=== PATIENT | female | born 1935 | race Caucasian/White ===

== ENCOUNTER 2018-01-13 12:00 | Inpatient (IN) | payer OTHER ==
[~2018-01-13] VITALS: Ht 162.6 cm; Wt 63.2 kg
[2018-01-13] VITALS (9 sets, daily range): BP systolic 148–210; BP diastolic 61–82; PULSE 65; TEMP 36.3–37.5; O2SAT 94–96; Ht 162.6 cm; Wt 63.2 kg
[~2018-01-13 12:00] MED LIST: SODIUM CHLORIDE 0.9% 1000ML 1,000 ML IV SCH
--- NOTE | 2018-01-13 12:12 | DIAGNOSTIC IMAGING REPORT ---
CT HEAD WITHOUT CONTRAST (CT) CLINICAL HISTORY: STROKE COMPARISON STUDY: No previous studies for comparison. TECHNIQUE: Axial CT of the brain is performed from the vertex to the skull base. IV contrast was not administered for this examination. A dose lowering technique was utilized adhering to the principles of ALARA. CT DOSE: 638.56 mGycm FINDINGS: No intra or extra-axial mass lesions are visualized. There is no CT evidence of acute cortical infarction. There is no evidence of midline shift. There is no acute hemorrhage. No calvarial fractures are visualized. There are patchy white matter hypodensities likely on a small vessel basis. There is no evidence of pathologic ventricular dilatation. There is trace fluid within the right maxillary sinus. Note is made of vertebral and basilar artery calcifications. IMPRESSION: No acute intracranial findings Electronically signed by: Messi Doll M.D. 01/13/2018 12:10 PM Dictated Date/Time: 01/13/2018 12:08 PM
[2018-01-13 12:32] LABS: BASO % 0.8 %; BASO ABS # 0.05 K/uL (0-0.2); EOS % 4.1 %; EOS ABS # 0.27 K/uL (0-0.5); HEMATOCRIT 38.2 % (37-47); LYMPH % 34.5 %; LYMPH ABS # 2.25 K/uL (1.2-3.4); MEAN CELL VOLUME 91.2 fL (80-100); MEAN PLATELET VOLUME 10.6 fL (7.4-10.4); MONO % 11.2 %; MONO ABS # 0.73 K/uL (0.11-0.59); NEUT % 49.4 %; NEUT ABS # 3.22 K/uL (1.4-6.5); PLATELET COUNT 209 K/uL (130-400); RED CELL DISTRIBUTION WIDTH CV 14.2 % (11.5-14.5); RED CELL DISTRIBUTION WIDTH SD 47.2 fL (36.4-46.3); WHITE BLOOD COUNT 6.52 K/uL (4.8-10.8)
[2018-01-13 12:34] LABS: ISTAT CREATININE 0.7 mg/dl (0.6-1.3); ISTAT IONIZED CALCIUM 1.22 mmol/l (1.12-1.32); ISTAT POTASSIUM 3.9 mEq/L (3.3-5.0)
--- NOTE | 2018-01-13 12:39 | DIAGNOSTIC IMAGING REPORT ---
CHEST ONE VIEW PORTABLE CLINICAL HISTORY: STROKE dyspnea COMPARISON STUDY: No previous studies for comparison. FINDINGS: Mild cardiomegaly. Prior median sternotomy. Permanent bipolar cardiac pacemaker. Lungs are considered clear. Diaphragms are smooth. IMPRESSION: No acute process. Postoperative changes as noted. The above report was generated using voice recognition software. It may contain grammatical, syntax or spelling errors. Electronically signed by: Gerardo Wright M.D. 01/13/2018 12:37 PM Dictated Date/Time: 01/13/2018 12:37 PM
[2018-01-13 12:46] LABS: CALCIUM 9.7 mg/dl (8.5-10.1); CREATININE 0.75 mg/dl (0.60-1.20); POTASSIUM 3.7 mmol/L (3.5-5.1)
[2018-01-13 12:55] LABS: CKMB 1.9 ng/ml (0.5-3.6)
[2018-01-13] MEDS ORDERED: ONDANSETRON INJ 2 MG/ML 2 ML VIAL IV STA (13:06)
[2018-01-13] MEDS ORDERED: ASPIRIN 324 MG CHEW PO STA (13:06)
[2018-01-13] MEDS ORDERED: MoRPHine SULFATE 2 MG/ML CARP IV STA (13:06)
[2018-01-13] MEDS ORDERED: ASPI1CHW12 PO (13:10)
[2018-01-13] MEDS ORDERED: NVLG SQ ×2 (13:10→13:14)
[2018-01-13] MEDS ORDERED: METO100T44 PO (13:10)
[2018-01-13] MEDS ORDERED: DEXTROSE 50% 50 ML SYR IV PRN (14:00)
[2018-01-13] MEDS ORDERED: POLYETHYLENE (MIRALAX) 17 GM PACK PO PRN (14:00)
[2018-01-13] MEDS ORDERED: GLUCAGON FOR INJ 1 MG VIAL SQ PRN (14:00)
[2018-01-13] MEDS ORDERED: GLUCOSE 10 TABS/TUBE PO PRN (14:00)
[2018-01-13] MEDS ORDERED: GLUCOSE 40% GEL 15 GM TUBE PO PRN (14:00)
[2018-01-13] MEDS ORDERED: PHARMACY GLYCEMIC MGMT CONSULT PRN (14:40)
--- NOTE | 2018-01-13 14:50 | History and Physical ---
History & Physical Date & Time of Service: Jan 13, 2018 at 14:01 Chief Complaint: Cva Symptoms Primary Care Physician: Kraig Cornejo M.D. History of Present Illness Attending: Dr. Hamilton This is an 82-year-old female that presented with some left-sided weakness. She reports that this started this morning about 1030. She had no falls or injury but states she has some numbness and tingling of the left hand was then developed into some left-sided weakness. She reports some numbness of the right hand but not the same feeling as her left. She had no slurred speech. She has no unusual or acute memory loss. She denies any difficulty with eating or swallowing. She denies any history of aspiration. The patient does have a significant history of cardiac disease with multiple CABGs as well as multiple PCI's. She follows a [facility] in [place] and had her most recent stent last year. She reports that her legal counsel said at that time that she is not a candidate for further intervention and that she will need to be treated medically. The patient had a CT scan of the head done today which was negative for acute findings. A tele-stroke consult was placed with [facility]. The patient was evaluated by Dr. Cordero who declared that he did not think that there was a CVA. The patient has shown consistent improvement in her symptoms since admission to the emergency department. At this point she does still complain of some left-sided hand weakness and states that her left arm just feels different. She does have a history of left carotid endarterectomy approximately 15 years ago. Her last carotid ultrasound was 2 years ago and per family did not show significant stenosis. The patient does have a contrast dye allergy. She has no other acute complaints at this time. Past Medical/Surgical History Medical Problems: CAD status post CABG CAD status post PCI with stent placement as recently as 2016 Hyperlipidemia Type 2 diabetes with chronic insulin use Aortic stenosis Chronic carotid bruits Past surgical history: CABG at [facility] CABG at [facility] PCI with stent placement in [place] Left carotid endarterectomy [facility] Family History Noncontributory to this admission Social History Smoking Status: Former Smoker Smokeless Tobacco Use: No Alcohol Use: none Drug Use: none Housing status: lives with family Allergies Coded Allergies: Penicillins (Unverified Allergy, Intermediate, HIVES, 01/13/18) Uncoded Allergies: CONTRAST (Adverse Reaction, Intermediate, HIVES, 01/13/18) Home Medications Scheduled Acetaminophen (Tylenol), 500 MG PO HS Aspirin (Aspirin 81 Low Dose), 1 TAB PO QAM Clopidogrel Bisulfate (Plavix), 75 MG PO QAM Ezetimibe (Zetia), 10 MG PO HS Insulin Isophan/Regular (Humulin 70/30), 30 UNITS SC QAM Insulin Isophan/Regular (Humulin 70/30), 25 UNITS SC QDD Levothyroxine Sodium (Levothyroxine Sodium), 1 TAB PO QAM Metoprolol Succ (Toprol Xl) (Toprol-Xl ), 100 MG PO QAM Ramipril (Ramipril), 1 CAP PO BID Simvastatin (Zocor), 80 MG PO QPM Review of Systems Constitutional: + weakness, No fever, No chills, No sweats, No fatigue Eyes: No worsening of vision, No eye pain, No diplopia ENT: No unusual epistaxis Respiratory: No cough, No sputum, No wheezing Cardiovascular: No chest pain, No edema, No claudication, No palpitations Abdomen: No pain, No nausea, No vomiting, No diarrhea, No constipation Genitourinary - Female: No dysuria, No hematuria Neurologic: + numbness/tingling (Left arm and hand) Endocrine: No excessive thirst Hematologic / Lymphatic: No abnormal bleeding/bruising, No clotting problems, No swollen lymph nodes Integumentary: No rash Allergic / Immunologic: No environmental allergies Physical Exam Vital Signs Date Time Temp Pulse Resp B/P (MAP) Pulse Ox O2 Delivery O2 Flow Rate FiO2 01/13/18 13:00 67 20 167/76 98 Room Air 01/13/18 12:25 65 20 199/65 96 Room Air 01/13/18 12:16 65 01/13/18 12:05 36.8 65 22 211/74 98 Room Air 01/13/18 12:05 98 Room Air GENERAL : No acute distress. Pleasant EYES: No icterus, gaze conjugate. PERRL. EOMI NOSE: No evidence of epistaxis. MOUTH: No lesions or candidiasis. Partial dentures on top and bottom in place and appears secure NECK: Supple. Bilateral carotid bruits. No stridor. LUNGS: CTA B/L, no wheezes, rales or rhonchi HEART: Regular, rate controlled. Positive aortic bruit. No appreciation of ectopy ABDOMEN: Soft, NT, ND, BS Present. No guarding or rebound tenderness EXTREMITIES: No LE edema, pedal pulses intact. No calf pain. Well-healed bilateral saphenous scars from harvesting NEURO: A&OX3. No pronator drift. Pupils equal round and reactive to light. Strength basically equal bilaterally to upper and lower extremities. Deep tendon reflexes 2 out of 4 to patellar, brachial radialis, and bicep tendons. Toes are downgoing bilaterally. No slurred speech. No facial droop. Tongue is midline. Tongue strength is equal bilaterally on inside of cheeks. Short- term memory intact. Long-term memory intact Diagnostics Laboratory Results Results Past 24 Hours Test 01/13/18 12:10 01/13/18 12:22 Range/Units White Blood Count 6.52 4.8-10.8 K/uL Red Blood Count 4.19 4.2-5.4 M/uL Hemoglobin 13.0 12.0-16.0 g/dL Hematocrit 38.2 37-47 % Mean Corpuscular Volume 91.2 80-100 fL Mean Corpuscular Hemoglobin 31.0 25-34 pg Mean Corpuscular Hemoglobin Concent 34.0 32-36 g/dl Platelet Count 209 130-400 K/uL Mean Platelet Volume 10.6 7.4-10.4 fL Neutrophils (%) (Auto) 49.4 % Lymphocytes (%) (Auto) 34.5 % Monocytes (%) (Auto) 11.2 % Eosinophils (%) (Auto) 4.1 % Basophils (%) (Auto) 0.8 % Neutrophils # (Auto) 3.22 1.4-6.5 K/uL Lymphocytes # (Auto) 2.25 1.2-3.4 K/uL Monocytes # (Auto) 0.73 0.11-0.59 K/uL Eosinophils # (Auto) 0.27 0-0.5 K/uL Basophils # (Auto) 0.05 0-0.2 K/uL RDW Standard Deviation 47.2 36.4-46.3 fL RDW Coefficient of Variation 14.2 11.5-14.5 % Immature Granulocyte % (Auto) 0.0 % Immature Granulocyte # (Auto) 0.00 0.00-0.02 K/uL Prothrombin Time 10.6 9.0-12.0 SECONDS Prothromb Time International Ratio 1.0 0.9-1.1 Activated Partial Thromboplast Time 25.0 21.0-31.0 SECONDS Partial Thromboplastin Ratio 1.0 Sodium Level 136 136-145 mmol/L Potassium Level 3.7 3.5-5.1 mmol/L Chloride Level 103 98-107 mmol/L Carbon Dioxide Level 28 21-32 mmol/L Anion Gap 5.0 18.0 16-25 mmol/L Blood Urea Nitrogen 20 7-18 mg/dl Creatinine 0.75 0.60-1.20 mg/dl Est Creatinine Clear Calc Drug Dose 53.9 ml/min Estimated GFR () 85.4 Estimated GFR (Non- 73.7 BUN/Creatinine Ratio 27.1 10-20 Random Glucose 80 70-99 mg/dl Calcium Level 9.7 8.5-10.1 mg/dl Magnesium Level 2.1 1.8-2.4 mg/dl Total Creatine Kinase 185 26-192 U/L Creatine Kinase MB 1.9 0.5-3.6 ng/ml Creatine Kinase MB Ratio 1.0 0-3.0 Troponin I 0.091 0-0.045 ng/ml Bedside Hemoglobin 12.2 12.0-16.0 g/dl Bedside Hematocrit 36 37-47 % Bedside Sodium 140 135-144 mEq/L Bedside Potassium 3.9 3.3-5.0 mEq/L Bedside Chloride 100 101-112 mEq/L Bedside Total CO2 27 24-31 mEq/l Bedside Blood Urea Nitrogen 21 7-18 mg/dl Bedside Creatinine 0.7 0.6-1.3 mg/dl Bedside Glucose (other) 82 70-99 mg/dl Bedside Ionized Calcium (Dajuan) 1.22 1.12-1.32 mmol/l Diagnostic Radiology CT HEAD WITHOUT CONTRAST (CT) CLINICAL HISTORY: STROKE COMPARISON STUDY: No previous studies for comparison. TECHNIQUE: Axial CT of the brain is performed from the vertex to the skull base. IV contrast was not administered for this examination. A dose lowering technique was utilized adhering to the principles of ALARA. CT DOSE: 638.56 mGycm FINDINGS: No intra or extra-axial mass lesions are visualized. There is no CT evidence of acute cortical infarction. There is no evidence of midline shift. There is no acute hemorrhage. No calvarial fractures are visualized. There are patchy white matter hypodensities likely on a small vessel basis. There is no evidence of pathologic ventricular dilatation. There is trace fluid within the right maxillary sinus. Note is made of vertebral and basilar artery calcifications. IMPRESSION: No acute intracranial findings Electronically signed by: Messi Doll M.D. 01/13/2018 12:10 PM CHEST ONE VIEW PORTABLE CLINICAL HISTORY: STROKE dyspnea COMPARISON STUDY: No previous studies for comparison. FINDINGS: Mild cardiomegaly. Prior median sternotomy. Permanent bipolar cardiac pacemaker. Lungs are considered clear. Diaphragms are smooth. IMPRESSION: No acute process. Postoperative changes as noted. Electronically signed by: Gerardo Wright M.D. 01/13/2018 12:37 PM Impression Assessment and Plan CVA versus TIA * CT scan of the head with no acute abnormalities. * Tele-stroke consult with [facility] with Dr. Cordero * Does not feel that this is a stroke * Continue aspirin * Will admit to the telemetry floor * Check bilateral carotid duplex * Neurology consult with [facility] * Will defer to neurology regarding MRI MRA * PT/OT consult and evaluation tomorrow CARDIOVASCULAR * Slight bump in troponin is 0.091 * Trend troponin every 8 hours 2 more * History of CAD with multiple CABG procedures as well as PCI with stent placement as recently as 2016 * Follows with cardiology at [facility] in [place] family reports that cardiology-has indicated that there will be no further interventions but to treat medically * Hemodynamically stable * Continue Toprol * Continue simvastatin and Zetia * Admit to medical telemetry for monitoring * No chest pain or ST changes on EKG LEFT SHOULDER PAIN * No history of trauma, ecchymosis, crepitus. Limited range of motion * Check a 2 view plain film * Monitor TYPE 2 DIABETES MELLITUS * Chronic insulin with NovoLog at bedtime and every morning * Check a hemoglobin A1c * Glycemic consult with pharmacy * Diabetic AHA diet HYPOTHYROIDISM * Continue levothyroxine DVT PROPHYLAXIS * No further chemical prophylaxis as patient is already on clopidogrel and aspirin with rule out for CVA * TEDs SCDs/ordered * Ambulate as tolerated Please refer to Dr. Alvarez' addendum for further recommendations ATTENDING PHYSICIAN ATTESTATION Pt. Ria Mitchell was seen and evaluated by Juan Taylor PA-C and Admitting Hospitalist Gorge Alvarez MD. Mrs. Mitchell is admitted for TIA/CVA workup. She has significant risk factors: CAD s/p multiple vessel CABG and PCI, Hyperlipidemia, Diabetes Mellitus type II and carotid stenosis s/p endarectomy. CT showed no acute findings but is still experiencing intermittent parasthesis and mild left sided weakness. She is already anticoagulated on ASA and Plavix. In the morning, we will obtain MRI imaging and B/: carotid duplex. Will change current statin therapy to atorvastatin 40 mg PO qHS. Furthermore, troponins are in the andre area and currentyl at 0.09 on ED admission. She is asymptomatic and EKG is nonischemic but will obtain serial troponins. Advanced Directives Existing Advance Directive: Yes (Family will bring in) Resuscitation Status Patient elects to be a full resuscitation. Discussion with family in room including daughter and granddaughter VTE Prophylaxis Will order VTE Prophylaxis: Yes Reason for no VTE drug order: Contraindicated Social Service Consult >80 yr.& Lives Alone
--- NOTE | 2018-01-13 15:34 | Pharmacy Progress Note ---
Glycemic Control Intl Consult Date of Service Jan 13, 2018. Scope Glycemic Pharmacist consulted by Juan Taylor PA-C on 01/13/18 for glycemic control and to write orders per [facility] inpatient glycemic control protocol Objective Weight (Kilograms): 68.000 Accuchecks BSG (last 24hrs): Test 01/13/18 12:10 01/13/18 14:49 01/13/18 15:10 Random Glucose 80 mg/dl (70-99) Bedside Glucose 59 mg/dl (70-90) 76 mg/dl (70-90) Laboratory Data (last 24hrs) Test 01/13/18 12:10 01/13/18 12:22 Anion Gap 5.0 mmol/L 18.0 mmol/L BUN/Creatinine Ratio 27.1 Blood Urea Nitrogen 20 mg/dl Creatinine 0.75 mg/dl Potassium Level 3.7 mmol/L Sodium Level 136 mmol/L White Blood Count 6.52 K/uL Red Blood Count 4.19 M/uL Hemoglobin 13.0 g/dL Hematocrit 38.2 % Mean Corpuscular Volume 91.2 fL Mean Corpuscular Hemoglobin 31.0 pg Mean Corpuscular Hemoglobin Concent 34.0 g/dl Platelet Count 209 K/uL Mean Platelet Volume 10.6 fL Neutrophils (%) (Auto) 49.4 % Lymphocytes (%) (Auto) 34.5 % Monocytes (%) (Auto) 11.2 % Eosinophils (%) (Auto) 4.1 % Basophils (%) (Auto) 0.8 % Neutrophils # (Auto) 3.22 K/uL Lymphocytes # (Auto) 2.25 K/uL Monocytes # (Auto) 0.73 K/uL Eosinophils # (Auto) 0.27 K/uL Basophils # (Auto) 0.05 K/uL Recent Pertinent Medications Outpatient Anti-diabetic Regimen: * Humulin 70/30 - 30 units in morning and 25 units in the PM (confirmed with Bhupinder) Risk Factors for Insulin Resistance: * Diet: type 2 diabetic diet Assessment & Plan ASSESSMENT: * Ms Mitchell is an 82 y/o F with a PMH of CAD s/p CABG, HLD, and aortic stenosis who presents as a stroke alert. Patient has unknown control of her type 2 diabetes. * Ms Mitchell takes a combination insulin which is difficult to control as an inpatient therefore will separate into NPH plus Novolog. Reduce NPH doses by about 20% for inpatient use. Patient was hypoglycemic at 1500 secondary to not eating lunch. Comfortable with taking evening dose of NPH. For Novolog, will utilize weight-based stress of 2 dosing which correlates with home dose of 55 units.Utilize goal range of 120-160 mg/dL until how patient will respond to insulin is determined. PLAN FOR INPATIENT GLYCEMIC CONTROL: * Basal insulin with NPH 15 units in morning and 10-14 units SQ with dinner (10 units if blood sugar less than 140 mg/dL) * Correctional Insulin with NOVOLOG per scale ACHS or Q6hrs while NPO * Goal Range: Low 120 mg/dL - High 160 mg/dL * Correction Factor: 30 mg/dL/unit * Nutritional / Prandial insulin per carb ratio of 1 unit per 10 grams CHO consumed * Please note that the plan above was derived based on current level of insulin resistance and hospital stress. These recommendations are appropriate for inpatient admission only. Plan of care upon discharge will need to be reassessed to avoid potential outpatient hypo/hyperglycemia. Thank you.
[2018-01-13] MEDS: ACETAMINOPHEN 325 MG TAB PO PRN (16:00)
--- NOTE | 2018-01-13 16:46 | EMERGENCY ROOM VISIT NOTE ---
History Report prepared by Ayala: Jonah Rojas Under the Supervision of: Dr. Chandu Myrick M.D. First contact with patient: 11:51 Chief Complaint: CVA SYMPTOMS Stated Complaint: CVA SYMPTOMS History of Present Illness The patient is a 82 year old female who presents to the Emergency Room with complaints of constant neurologic symptoms beginning 1.5 hours ago (10:30am). Her symptoms include left arm weakness and difficulty walking. Her symptoms began with weakness in her left arm. The patient has chronic right hand numbness. She was standing beside her bed when her symptoms began. She notes that her left shoulder is painful as well which began at the same time as her weakness. The patient is unsure if her shoulder pain and arm weakness are related. She states that her weakness is not due to pain. She adds that she was staggering when trying to walk today as well. The patient denies neck pain, headache, fevers, diarrhea, vomiting, chest pain, SOB, or difficulty with speech. She feels that her left leg is not weak. The patient is on Plavix and aspirin for prior CABG. She stopped taking her Plavix and aspirin for a colonoscopy which she had yesterday. She began taking her Plavix again today, and has not started her aspirin again. The patient has no history of stroke. Source of History: patient Onset: 1.5 hours ago Position: arm (left) Quality: other (weakness) Timing: constant Associated Symptoms: No fevers, No headache, No chest pain, No SOB, No vomiting, No diarrhea Note: Negative: difficulty with speech. Positive: left shoulder pain. Review of Systems See HPI for pertinent positives & negatives. A total of 10 systems reviewed and were otherwise negative. Past Medical & Surgical Medical Problems: (1) CAD (coronary artery disease) (2) TIA (transient ischemic attack) Surgical Problems: (1) Hx of CABG Family History No pertinent family history stated. Social History Occupation Status: retired Current/Historical Medications Scheduled Acetaminophen (Tylenol), 500 MG PO HS Aspirin (Aspirin 81 Low Dose), 1 TAB PO QAM Clopidogrel Bisulfate (Plavix), 75 MG PO QAM Ezetimibe (Zetia), 10 MG PO HS Insulin Isophan/Regular (Humulin 70/30), 30 UNITS SC QAM Insulin Isophan/Regular (Humulin 70/30), 25 UNITS SC QDD Levothyroxine Sodium (Levothyroxine Sodium), 1 TAB PO QAM Metoprolol Succ (Toprol Xl) (Toprol-Xl ), 100 MG PO QAM Ramipril (Ramipril), 1 CAP PO BID Simvastatin (Zocor), 80 MG PO QPM Allergies Coded Allergies: Penicillins (Unverified Allergy, Intermediate, HIVES, 01/13/18) Uncoded Allergies: CONTRAST (Adverse Reaction, Intermediate, HIVES, 01/13/18) Physical Exam Vital Signs Date Time Temp Pulse Resp B/P (MAP) Pulse Ox O2 Delivery O2 Flow Rate FiO2 01/13/18 13:00 67 20 167/76 98 Room Air 01/13/18 12:25 65 20 199/65 96 Room Air 01/13/18 12:16 65 01/13/18 12:05 36.8 65 22 211/74 98 Room Air 01/13/18 12:05 98 Room Air Physical Exam Constitutional: Vital signs reviewed. Eyes: Pupils are equal round reactive to light. Conjunctiva are noninjected. ENT: Pharynx is clear without erythema or exudate. Mucous membranes are moist. Neck supple without meningeal signs. Respiratory: Clear to auscultation bilaterally. Breath sounds are equal bilaterally. Cardiovascular: Regular rate and rhythm. No rubs or gallops. GI: Soft, nondistended and nontender. Bowel sounds are present. Musculoskeletal: No peripheral edema. No lower extremity tenderness. Pain with range of motion of the left shoulder. Integumentary: No cyanosis. Neurological: The patient is awake and alert. Cranial nerves II-XII are intact. 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 Sensation is intact to light touch all extremities. Normal speech. No pronator drift. Psychiatric: Normal affect. Medical Decision & Procedures ER Provider Diagnostic Interpretation: Radiology results as stated below per my review and the radiologist's interpretation: CT HEAD WITHOUT CONTRAST (CT) FINDINGS: No intra or extra-axial mass lesions are visualized. There is no CT evidence of acute cortical infarction. There is no evidence of midline shift. There is no acute hemorrhage. No calvarial fractures are visualized. There are patchy white matter hypodensities likely on a small vessel basis. There is no evidence of pathologic ventricular dilatation. There is trace fluid within the right maxillary sinus. Note is made of vertebral and basilar artery calcifications. IMPRESSION: No acute intracranial findings Electronically signed by: Messi Doll M.D. 01/13/2018 12:10 PM CHEST ONE VIEW PORTABLE FINDINGS: Mild cardiomegaly. Prior median sternotomy. Permanent bipolar cardiac pacemaker. Lungs are considered clear. Diaphragms are smooth. IMPRESSION: No acute process. Postoperative changes as noted. The above report was generated using voice recognition software. It may contain grammatical, syntax or spelling errors. Electronically signed by: Gerardo Wright M.D. 01/13/2018 12:37 PM Laboratory Results 01/13/18 12:10 Red Blood Count 4.19, Mean Corpuscular Volume 91.2, Mean Corpuscular Hemoglobin 31.0, Mean Corpuscular Hemoglobin Concent 34.0, Mean Platelet Volume 10.6, Neutrophils (%) (Auto) 49.4, Lymphocytes (%) (Auto) 34.5, Monocytes (%) (Auto) 11.2, Eosinophils (%) (Auto) 4.1, Basophils (%) (Auto) 0.8, Neutrophils # (Auto ) 3.22, Lymphocytes # (Auto) 2.25, Monocytes # (Auto) 0.73, Eosinophils # (Auto ) 0.27, Basophils # (Auto) 0.05 01/13/18 12:10 Test 01/13/18 12:10 01/13/18 12:13 01/13/18 12:22 White Blood Count 6.52 K/uL (4.8-10.8) Red Blood Count 4.19 M/uL (4.2-5.4) Hemoglobin 13.0 g/dL (12.0-16.0) Hematocrit 38.2 % (37-47) Mean Corpuscular Volume 91.2 fL (80-100) Mean Corpuscular Hemoglobin 31.0 pg (25-34) Mean Corpuscular Hemoglobin Concent 34.0 g/dl (32-36) Platelet Count 209 K/uL (130-400) Mean Platelet Volume 10.6 fL (7.4-10.4) Neutrophils (%) (Auto) 49.4 % Lymphocytes (%) (Auto) 34.5 % Monocytes (%) (Auto) 11.2 % Eosinophils (%) (Auto) 4.1 % Basophils (%) (Auto) 0.8 % Neutrophils # (Auto) 3.22 K/uL (1.4-6.5) Lymphocytes # (Auto) 2.25 K/uL (1.2-3.4) Monocytes # (Auto) 0.73 K/uL (0.11-0.59) Eosinophils # (Auto) 0.27 K/uL (0-0.5) Basophils # (Auto) 0.05 K/uL (0-0.2) RDW Standard Deviation 47.2 fL (36.4-46.3) RDW Coefficient of Variation 14.2 % (11.5-14.5) Immature Granulocyte % (Auto) 0.0 % Immature Granulocyte # (Auto) 0.00 K/uL (0.00-0.02) Prothrombin Time 10.6 SECONDS (9.0-12.0) Prothromb Time International Ratio 1.0 (0.9-1.1) Activated Partial Thromboplast Time 25.0 SECONDS (21.0-31.0) Partial Thromboplastin Ratio 1.0 Est Creatinine Clear Calc Drug Dose 53.9 ml/min Estimated GFR () 85.4 Estimated GFR (Non- 73.7 BUN/Creatinine Ratio 27.1 (10-20) Calcium Level 9.7 mg/dl (8.5-10.1) Total Creatine Kinase 185 U/L (26-192) Creatine Kinase MB 1.9 ng/ml (0.5-3.6) Creatine Kinase MB Ratio 1.0 (0-3.0) Troponin I 0.091 ng/ml (0-0.045) Bedside Prothrombin Time INR 1.0 (0.9-1.1) Bedside Hemoglobin 12.2 g/dl (12.0-16.0) Bedside Hematocrit 36 % (37-47) Bedside Sodium 140 mEq/L (135-144) Bedside Potassium 3.9 mEq/L (3.3-5.0) Bedside Chloride 100 mEq/L (101-112) Bedside Total CO2 27 mEq/l (24-31) Anion Gap 18.0 mmol/L (16-25) Bedside Blood Urea Nitrogen 21 mg/dl (7-18) Bedside Creatinine 0.7 mg/dl (0.6-1.3) Bedside Glucose (other) 82 mg/dl (70-99) Bedside Ionized Calcium (Dajuan) 1.22 mmol/l (1.12-1.32) Laboratory results as reviewed by me. Medications Administered Medications (Trade) Dose Ordered Sig/Irene Route Start Time Stop Time Status Last Admin Dose Admin Sodium Chloride 1,000 ml @ 50 mls/hr Q20H IV 01/13/18 11:51 02/12/18 11:50 01/13/18 12:40 50 MLS/HR Aspirin (Aspirin Chew) 324 mg NOW STAT PO 01/13/18 13:06 01/13/18 13:07 DC 01/13/18 14:05 324 MG ECG Per My Interpretation Indication: weakness Rate (beats per minute): 69 Rhythm: other (Atrial paced) Findings: RBBB, other (No ST elevations. ) ED Course I took medical command call on the patient. A stroke alert was called. 1151: Ordered Sodium Chloride 1000 ml @ 50 mls/hr IV. 1200: The patient was taken directly to CT. 1209: The patient was evaluated in room A1. A complete history and physical exam was performed. 1300: The patient was moved to room B6. 1302: I reassessed the patient. She states that her left shoulder hurts, but is worsened with movement. She denies chest pain or SOB. We discussed her test results including her elevated troponin. 1320: Upon reevaluation, the patient appeared to have improvement of her symptoms. I discussed carly's findings with the patient. She verbalized agreement of the treatment plan. The patient will be evaluated for further management. Medical Decision This is an 82-year-old female presents with strokelike symptoms. Differential diagnosis includes CVA, intracranial hemorrhage, TIA, metabolic derangement, intracranial mass, arthritis. I did perform a limited focused review of portions of the patient's old chart on the electronic medical record. The patient has had no prior visits to this hospital. I did provide prehospital medical command for the patient. The paramedics stated that the patient had developed weakness to the left arm and leg at 10:30 AM. She did not wake up with the symptoms. Based on this report I did call a stroke alert. I did order a stat CT of the head. I did review the images myself as well as the radiology report as described above. There is no evidence of acute intracranial abnormality. I did evaluate the patient as noted above. She does have weakness to the left arm including the fire protection specialist. She does have pain in the left shoulder but this should not necessarily affect her fire protection specialist. She also stated that she had trouble walking and was unsteady on her feet. I did not, however, appreciate any left leg weakness. IV access was established. The patient was placed on a continuous surveillance system monitor. I did order and personally review the patient's 12-lead EKG and chest x-ray as described above. I did order and review the patient's blood work as noted in the electronic medical record. Her troponin is elevated. I did discuss the case with the [facility] neurologist. He did attempt to evaluate the patient via telemedicine but the equipment was not working properly. He was able to speak the patient and I did give him the history. He recommended that patient be admitted and given aspirin. He did recommend MRI for further workup. I did discuss the case with the hospitalist and director of casework services. I did treat the patient with aspirin. On reassessment the patient has continued weakness to her left fire protection specialist. I did discuss the test results with the patient and her family. She denies having any chest pain or shortness of breath. Her left shoulder pain is reproducible with movement. I did treat her with IV morphine and Zofran. Medication Reconcilliation Current Medication List: was personally reviewed by me Blood Pressure Screening Patient's blood pressure: Elevated blood pressure Blood pressure disposition: Referred to PCP Consults Time Called: 1209 Consulting Physician: Dr. Root - Neurology Returned Call: [address] Root of Neurology. We discussed the patient's case. Dr. Root will evaluate the patient via Telestroke. 1300: I spoke with Dr. Root again. He recommend aspirin, brain MRI, and hospitalization. Additional Consults: Time Called: 1320 Consulted Physician: Dr. Hamilton - [facility] [place] Returned Call: 1324 Additional Comments: I spoke with Dr. Hamilton of [facility]. We discussed the patient and her results. The patient will be further evaluated by [facility]. Impression Primary Impression: Left-sided weakness Additional Impressions: Left shoulder pain Elevated troponin Scribe Attestation The scribe's documentation has been prepared under my direct and personally reviewed by me in its entirety. I confirm that the note above accurately reflects all work, treatment, procedures, and medical decision making performed by me. Departure Information Dispostion Being Evaluated By Hospitalist Forms WORK / SCHOOL INSTRUCTIONS, HOME CARE DOCUMENTATION FORM, IMPORTANT VISIT INFORMATION Patient Instructions My [facility] Stroke History Time Last Known Well 1030am Stroke t-PA Criteria Reviewed Does NOT meet criteria for t-PA Reason t-PA Not Given Treatment not indicated (Low stroke scale. Symptoms possibly not related to stroke.) Problem Qualifiers Additional Impressions: Left shoulder pain Chronicity: acute Qualified Codes: M25.512 - Pain in left shoulder
--- NOTE | 2018-01-13 17:02 | DIAGNOSTIC IMAGING REPORT ---
CAROTID ARTERY ULTRASOUND CLINICAL HISTORY: New CVA symptoms vs TIA COMPARISON STUDY: None. TECHNIQUE: Real-time, grayscale, and color Doppler sonography of the carotid and vertebral arteries was performed. Images were viewed in the transverse and longitudinal planes. FINDINGS: There is moderate atherosclerotic plaque. Velocity measurements are listed below. COMMON CAROTID PEAK SYSTOLIC VELOCITY (CM/S): RIGHT 110 LEFT 83 ICA PEAK SYSTOLIC VELOCITY (CM/S): RIGHT 88 LEFT 87 Systolic ratios between the internal to common carotid arteries were normal. Antegrade flow is seen in the vertebral arteries. The external carotid arteries are patent. Blood pressure in the right arm measured 161/82. Blood pressure in the left arm measured 166/60. IMPRESSION: Moderate atherosclerotic plaque within the bilateral internal carotid arteries without evidence for a hemodynamically significant stenosis. Electronically signed by: Deyvi Casarez M.D. 01/13/2018 5:00 PM Dictated Date/Time: 01/13/2018 4:59 PM
--- NOTE | 2018-01-13 17:31 | DIAGNOSTIC IMAGING REPORT ---
L SHOULDER MIN 2 VIEWS ROUTINE CLINICAL HISTORY: Left Shoulder pain, limited motion COMPARISON: None FINDINGS: Alignment of the left shoulder is anatomic. No acute fracture or suspicious lesion is present. A few calcific densities along the superolateral aspect of the left humeral head measure up to 4 mm. There is moderate osteoarthritis of the left acromioclavicular joint and mild osteoarthritis of the left glenohumeral joint. Irregularity of the greater tuberosity is noted. Median sternotomy wires, mediastinal surgical clips and cardiac stents are incidentally noted. There is moderate cardiomegaly. IMPRESSION: 1. No acute fracture or dislocation of the left shoulder. 2. A few calcific densities along the superolateral aspect of the left humeral head which favor calcific tendinitis of the rotator cuff. 3. Moderate osteoarthritis of the left acromioclavicular joint and mild osteoarthritis of the left glenohumeral joint. Electronically signed by: Deyvi Casarez M.D. 01/13/2018 5:29 PM Dictated Date/Time: 01/13/2018 5:27 PM
[2018-01-13] MEDS: INSULIN ASPART 100 UNITS/ML 3 ML PEN SC SCH ×2 (17:57→21:00)
[2018-01-13] MEDS: INSULIN HUMAN NPH SC SCH (17:59)
[2018-01-13] MEDS ORDERED: SIMVASTATIN 80 MG TAB PO SCH (21:00)
[2018-01-13] MEDS: EZETIMIBE 10MG TAB PO SCH (21:47)
[2018-01-13] MEDS: ONDANSETRON INJ 2 MG/ML 2 ML VIAL IV PRN (21:48)
[2018-01-13] MEDS: ENALAPRIL MALEATE 10 MG TAB PO SCH (21:48)
[2018-01-13] MEDS ORDERED: LABETALOL HCL IV 5 MG/ML 20ML IV STA (21:49)
--- NOTE | 2018-01-13 22:33 | DIAGNOSTIC IMAGING REPORT ---
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 TECHNIQUE: Multidetector CT imaging of the head was performed without the use of intravenous contrast. IV contrast: None. A dose lowering technique was used consistent with the principles of ALARA (as low as reasonably achievable). COMPARISON: 01/13/2018 at 12:[address] DOSE (mGy.cm): The estimated cumulative dose is 601.98 mGy.cm. FINDINGS: Community Leader topogram: Unremarkable. Proportional ventricular and sulcal prominence, likely age-related parenchymal volume loss. Periventricular and subcortical white matter hypoattenuation, nonspecific but likely indicative of chronic small vessel ischemic change. No mass effect or midline shift. Focal hypodensity involving the overlying andre matter suggested right frontal region (series 2 images 14 and 15). No associated hemorrhage. No extra-axial fluid collection. Paranasal sinuses and mastoid air cells clear. Calvarium intact. IMPRESSION: 1. Findings suspicious for a limited focal acute infarct in the right frontal lobe. The report will be called/faxed according to standard departmental protocol. Electronically signed by: Adrian Rocha M.D. 01/13/2018 10:32 PM Dictated Date/Time: 01/13/2018 10:28 PM
[2018-01-14] VITALS (9 sets, daily range): BP systolic 122–180; BP diastolic 52–63; PULSE 64–65; TEMP 36.8–37.2; O2SAT 93–96
[2018-01-14] MEDS ORDERED: CLOPIDOGREL BISULFATE 75 MG TAB PO STA (00:04)
[2018-01-14 03:57] LABS: BASO % 0.6 %; BASO ABS # 0.05 K/uL (0-0.2); EOS % 3.9 %; EOS ABS # 0.33 K/uL (0-0.5); HEMATOCRIT 33.6 % (37-47); HEMOGLOBIN 11.6 g/dL (12.0-16.0); IG# 0.02 K/uL (0.00-0.02); LYMPH % 24.8 %; LYMPH ABS # 2.09 K/uL (1.2-3.4); MEAN CELL VOLUME 91.3 fL (80-100); MEAN CORPUSCULAR HEMOGLOBIN 31.5 pg (25-34); MEAN CORPUSCULAR HGB CONC 34.5 g/dl (32-36); MEAN PLATELET VOLUME 10.5 fL (7.4-10.4); MONO % 9.2 %; MONO ABS # 0.78 K/uL (0.11-0.59); NEUT % 61.3 %; NEUT ABS # 5.17 K/uL (1.4-6.5); PLATELET COUNT 177 K/uL (130-400); RED CELL DISTRIBUTION WIDTH CV 14.1 % (11.5-14.5); RED CELL DISTRIBUTION WIDTH SD 46.7 fL (36.4-46.3); WHITE BLOOD COUNT 8.44 K/uL (4.8-10.8)
[2018-01-14 04:15] LABS: CALCIUM 8.5 mg/dl (8.5-10.1); CREATININE 0.73 mg/dl (0.60-1.20); POTASSIUM 3.8 mmol/L (3.5-5.1)
--- NOTE | 2018-01-14 05:31 | Medical Consult ---
Consultation Note Date of Service Jan 14, 2018. Consultation Note Received a page from the nurse stating that the patient had an acute worsening of her left facial droop and left sided symptoms. A STAT CT was ordered that showed an acute right frontal infarct without evidence of hemorrhage. With Dr. Pabon, I went to evaluate the patient. A neurological exam was performed which showed left sided neurological deficits. A Stroke alert was called. After consultation with Dr. Lopez and another physician in [place] it was decided to obtain an MRI of the Brain combo, MRA of the Head and Neck with IV Contrast and start Plavix tonight. MRI imaging is complicated by the fact that the patient has a Pacemaker - pt states the Pacemaker is two years old and she cannot adequately remember if she's had MRI imaging in the past. BP was reviewed and within target goals. Patient was updated on findings and the treatment plan. Resident Involvement: Resident Care Provided Care Provided: Adult [facility]
[2018-01-14] MEDS: LEVOTHYROXINE 50 MCG TAB PO SCH (06:11)
[2018-01-14] MEDS: ACETAMINOPHEN 325 MG TAB PO PRN ×3 (06:12→17:56)
[2018-01-14] MEDS: INSULIN ASPART 100 UNITS/ML 3 ML PEN SC SCH ×5 (06:30→23:46)
[2018-01-14] MEDS ORDERED: INSULIN HUMAN NPH SC SCH (08:00)
[2018-01-14] MEDS: METOPROLOL SUCC 50MG EXT REL TAB PO SCH (08:46)
[2018-01-14] MEDS: ENALAPRIL MALEATE 10 MG TAB PO SCH (08:46)
[2018-01-14] MEDS: ASPIRIN 81 MG ECTAB PO SCH (08:46)
[2018-01-14] MEDS: CLOPIDOGREL BISULFATE 75 MG TAB PO SCH (08:46)
[2018-01-14] MEDS ORDERED: PHARMACIST DISCHARGE MED REC CONSULT PRN (09:30)
[2018-01-14] MEDS ORDERED: OPTIRAY 320 IV PRN (10:15)
--- NOTE | 2018-01-14 10:21 | Neurology Consultation ---
Neurology Consultation Date of Consultation: Jan 14, 2018. Attending Physician: Gorge Hamilton M.D. Primary Care Physician: Kraig Cornejo M.D. Reason for Consultation: Consultation for stroke symptoms History of Present Illness Source: patient, hospital records This is a 82-year-old right-handed female who presents with stroke symptoms. Reports that symptoms occurred suddenly at 10:30 AM yesterday morning. She was awake and recently had her colonoscopy. She had been holding both her home Plavix and aspirin for the colonoscopy for about a week. She reports that her initial symptom was feeling like hot water was going down her arms. Reports that both arms felt strange or weak. Then felt like she was having trouble walking as though both of her legs were weak. Then progressed to left-sided weakness, mostly in the left upper extremity. Family members noted a left facial droop. She reports trouble getting her words out but no slurred speech. No change in mentation or altered mental status. No trouble swallowing. No changes with vision. Denies any sensory deficits. Family reports that left facial droop has improved but seems to be weaker and more discoordinated on the left compared to yesterday. Stroke alert was called in the emergency room and again last night when the patient's symptoms worsened. No IV TPA was given in the emergency room due to what appeared to be improving symptoms. There is also some question whether the patient has A. fib. It sounds like she was diagnosed with some sort of arrhythmia in the past and was put on Coumadin but was taken off many years ago. She does follow with a dural mechanic. Family is uncertain why she came off of Coumadin. Patient does have cardiac stents and a cardiac pacer. Ultrasound of the carotids noted moderate plaque in bilateral ICAs but no critical stenosis CT of the head 2 yesterday were reviewed by myself including report and images. Second CT noted a small right frontal ischemic stroke. Upon reviewing previous CT it may have been there before but less distinct. Labs: Troponin mildly elevated at 0.07-0.06. Hemoglobin A1c 6.0. Creatinine 0.7. Lipid profile is pending On review of systems patient has been noted to have a previous left shoulder injury and more chronic numbness and tingling of the right hand. Past Medical/Surgical History Medical Problems: (1) Elevated troponin Status: Acute (2) Left shoulder pain Status: Acute (3) Left-sided weakness Status: Acute CAD status post stents and pacer Dyslipidemia Diabetes type 2 with insulin Aortic stenosis Hypothyroid Some history of arrhythmia possibly A. fib Family History Family history of a brother and father with stroke Social History Patient normally is independent in her activities of daily living. No tobacco use. Rare alcohol use. No illegal drug use. Smokeless Tobacco Use: No Alcohol Use: none Drug Use: none Occupation Status: retired Allergies Coded Allergies: Penicillins (Unverified Allergy, Intermediate, HIVES, 01/13/18) Uncoded Allergies: CONTRAST (Adverse Reaction, Intermediate, HIVES, 01/13/18) Current Inpatient Medications Current Inpatient Medications Medications (Trade) Dose Ordered Sig/Irene Route Start Time Stop Time Status Last Admin Dose Admin Acetaminophen (Tylenol Tab) 650 mg Q4H PRN PO 01/13/18 14:00 02/12/18 13:59 01/14/18 06:12 650 MG Ondansetron HCl (Zofran Inj) 4 mg Q6H PRN IV 01/13/18 14:00 02/12/18 13:59 01/13/18 21:48 4 MG Polyethylene (Miralax Powder Packet) 17 gm DAILY PRN PO 01/13/18 14:00 02/12/18 13:59 Glucose (Glucose 40% Gel) 15-30 GRAMS 15 GRAMS... UD PRN PO 01/13/18 14:00 02/12/18 13:59 Glucose (Glucose Chew Tab) 4-8 Tablets 4 Tabl... UD PRN PO 01/13/18 14:00 02/12/18 13:59 Dextrose (Dextrose 50% 50ML Syringe) 25-50ML OF 50% DW IV FOR... UD PRN IV 01/13/18 14:00 02/12/18 13:59 Glucagon (Glucagon Inj) 1 mg UD PRN SQ 01/13/18 14:00 02/12/18 13:59 Miscellaneous Information (Consult Glycemic Management Pharmacy) 1 ea UD PRN N/A 01/13/18 14:40 02/12/18 14:39 Aspirin (Ecotrin Tab) 81 mg QAM PO 01/14/18 09:00 02/13/18 08:59 01/14/18 08:46 81 MG Clopidogrel Bisulfate (plAVix TAB) 75 mg QAM PO 01/14/18 09:00 02/13/18 08:59 01/14/18 08:46 75 MG EZETIMIBE (Zetia Tab) 10 mg HS PO 01/13/18 21:00 02/12/18 20:59 01/13/18 21:47 10 MG Insulin Human NPH (novoLIN-N NPH) SEE PROTOCOL TEXT QDD SC 01/13/18 17:00 02/12/18 17:59 01/13/18 17:59 14 UNITS Insulin Human NPH (novoLIN-N NPH) 15 units QDB SC 01/14/18 08:00 02/13/18 07:59 01/14/18 08:44 15 UNITS Levothyroxine Sodium (Synthroid Tab) 50 mcg DAILYBB PO 01/14/18 06:30 02/13/18 06:29 01/14/18 06:11 50 MCG Metoprolol Succinate (Toprol Xl Tab) 100 mg QAM PO 01/14/18 09:00 02/13/18 08:59 01/14/18 08:46 100 MG Enalapril Maleate (Vasotec Tab) 40 mg BID PO 01/13/18 21:00 02/12/18 20:59 01/14/18 08:46 40 MG Insulin Aspart (novoLOG ASPART) SLIDING SCALE ACHS SC 01/13/18 16:00 02/12/18 15:59 01/13/18 17:57 3 UNITS Atorvastatin Calcium (Lipitor Tab) 40 mg HS PO 01/14/18 21:00 02/13/18 20:59 Miscellaneous Information (Pharmacist Discharge Med Rec Consult) 1 ea UD PRN N/A 01/14/18 09:30 02/13/18 09:29 UNV Review of Systems Complete review of systems otherwise negative except for the above-noted in HPI Physical Exam Vital Signs (Past 24 Hrs): Date Time Temp Pulse Resp B/P (MAP) Pulse Ox O2 Delivery O2 Flow Rate FiO2 01/14/18 08:00 Room Air 01/14/18 08:00 95 Room Air 01/14/18 07:25 36.9 65 18 122/53 (76) 95 01/14/18 04:00 Room Air 01/14/18 03:56 36.9 64 18 155/56 (89) 96 Room Air 01/14/18 00:00 Room Air 01/13/18 23:35 185/61 (102) 01/13/18 23:04 37.1 65 18 157/66 (96) 95 Room Air 01/13/18 20:22 94 Room Air 01/13/18 19:55 65 148/62 (90) 01/13/18 19:10 37.5 65 18 191/67 (108) 94 Room Air 210/62 (111) 01/13/18 17:59 161/82 (108) 01/13/18 16:03 94 Room Air 01/13/18 16:03 96 Room Air 01/13/18 14:35 36.3 65 18 203/61 (108) 94 Room Air 01/13/18 14:17 95 Room Air 01/13/18 14:15 65 20 176/71 95 01/13/18 14:00 65 20 176/71 95 Room Air 01/13/18 13:00 67 20 167/76 98 Room Air 01/13/18 12:25 65 20 199/65 96 Room Air 01/13/18 12:16 65 01/13/18 12:05 36.8 65 22 211/74 98 Room Air 01/13/18 12:05 98 Room Air Gen.: Patient is alert and oriented in no acute distress lying in bed Heart: Regular rate and rhythm. Notable systolic murmur Extremities: No gross deformities or rashes noted Neurological examination: Mental status: Patient is alert and oriented to person place and time. Able to give his own history. Attention concentration normal for the situation. Remote and recent memory intact Speech is fluent without any dysarthria or aphasia noted Cranial nerves: Visual bradshaw intact accounting. Funduscopic examination was difficult to visualize. Pupils equally round and reactive to light. Extraocular muscles intact without nystagmus. No facial asymmetry noted. Facial sensation intact. Tongue midline. Good palatal elevation. Good shoulder shrug bilaterally. Hearing grossly intact voice. Strength: Right upper extremity strength 5/5. Left upper extremity strength 4/ 5. Bilateral hip flexion 4/5, right dorsi and plantar flexion 5/5, left dorsi and plantar flexion 4+/5. Sensation: Grossly intact to light touch in all extremities Deep tendon reflexes: +1 in bilateral biceps and patellar. Upgoing toe on the left Coordination: Dysmetria noted with finger to nose testing on the left and mild ataxia with heel to urbina testing on the left. Station within the bed is normal. Laboratory Results Past 24 Hours: 01/14/18 03:34 Red Blood Count 3.68, Mean Corpuscular Volume 91.3, Mean Corpuscular Hemoglobin 31.5, Mean Corpuscular Hemoglobin Concent 34.5, Mean Platelet Volume 10.5, Neutrophils (%) (Auto) 61.3, Lymphocytes (%) (Auto) 24.8, Monocytes (%) (Auto) 9.2, Eosinophils (%) (Auto) 3.9, Basophils (%) (Auto) 0.6, Neutrophils # (Auto) 5.17, Lymphocytes # (Auto) 2.09, Monocytes # (Auto) 0.78, Eosinophils # (Auto) 0.33, Basophils # (Auto) 0.05 01/14/18 03:34 Test 01/13/18 12:10 01/13/18 12:13 01/13/18 12:22 01/13/18 15:53 Prothrombin Time 10.6 SECONDS (9.0-12.0) Prothromb Time International Ratio 1.0 (0.9-1.1) Activated Partial Thromboplast Time 25.0 SECONDS (21.0-31.0) Partial Thromboplastin Ratio 1.0 Total Creatine Kinase 185 U/L (26-192) Creatine Kinase MB 1.9 ng/ml (0.5-3.6) Creatine Kinase MB Ratio 1.0 (0-3.0) Bedside Prothrombin Time INR 1.0 (0.9-1.1) Bedside Hemoglobin 12.2 g/dl (12.0-16.0) Bedside Hematocrit 36 % (37-47) Bedside Sodium 140 mEq/L (135-144) Bedside Potassium 3.9 mEq/L (3.3-5.0) Bedside Chloride 100 mEq/L (101-112) Bedside Total CO2 27 mEq/l (24-31) Bedside Blood Urea Nitrogen 21 mg/dl (7-18) Bedside Creatinine 0.7 mg/dl (0.6-1.3) Bedside Glucose (other) 82 mg/dl (70-99) Bedside Ionized Calcium (Dajuan) 1.22 mmol/l (1.12-1.32) Estimated Average Glucose 126 mg/dl Hemoglobin A1c 6.0 % (4.5-5.6) Magnesium Level 2.0 mg/dl (1.8-2.4) Test 01/13/18 20:28 01/14/18 03:34 Bedside Glucose 137 mg/dl (70-90) White Blood Count 8.44 K/uL (4.8-10.8) Red Blood Count 3.68 M/uL (4.2-5.4) Hemoglobin 11.6 g/dL (12.0-16.0) Hematocrit 33.6 % (37-47) Mean Corpuscular Volume 91.3 fL (80-100) Mean Corpuscular Hemoglobin 31.5 pg (25-34) Mean Corpuscular Hemoglobin Concent 34.5 g/dl (32-36) Platelet Count 177 K/uL (130-400) Mean Platelet Volume 10.5 fL (7.4-10.4) Neutrophils (%) (Auto) 61.3 % Lymphocytes (%) (Auto) 24.8 % Monocytes (%) (Auto) 9.2 % Eosinophils (%) (Auto) 3.9 % Basophils (%) (Auto) 0.6 % Neutrophils # (Auto) 5.17 K/uL (1.4-6.5) Lymphocytes # (Auto) 2.09 K/uL (1.2-3.4) Monocytes # (Auto) 0.78 K/uL (0.11-0.59) Eosinophils # (Auto) 0.33 K/uL (0-0.5) Basophils # (Auto) 0.05 K/uL (0-0.2) RDW Standard Deviation 46.7 fL (36.4-46.3) RDW Coefficient of Variation 14.1 % (11.5-14.5) Immature Granulocyte % (Auto) 0.2 % Immature Granulocyte # (Auto) 0.02 K/uL (0.00-0.02) Anion Gap 8.0 mmol/L (3-11) Est Creatinine Clear Calc Drug Dose 55.3 ml/min Estimated GFR () 88.3 Estimated GFR (Non- 76.2 BUN/Creatinine Ratio 27.5 (10-20) Calcium Level 8.5 mg/dl (8.5-10.1) Troponin I 0.068 ng/ml (0-0.045) Imaging As noted above in HPI Impression This is a 82-year-old female who presents with an acute right frontal lacunar stroke. I am also suspicious that she could have additional stroke in her cerebellum or brainstem area due to left-sided ataxia. Residual neurological deficits include mild left hemiplegia, mild to moderate left-sided ataxia. Uncertain what to make of her bilateral hip flexion weakness ( uncertainly if this is stroke related versus a more chronic etiology). Stroke risk factors include diabetes type 2 and dyslipidemia. Family does report that she has had a diagnosis of some sort of arrhythmia in the past. We need to find out whether the patient does have paroxysmal A. fib as this would change her medical management as antiplatelets do not protect against strokes in the setting of A. fib. An alternative etiology for stroke could be that she was holding her antiplatelets for a week preceding a colonoscopy. Plan Continue aspirin 81 mg and Plavix daily for secondary stroke prevention unless a clear indication for anticoagulation is found. Agree with having pacer interrogated to see if the patient has been going in and out of A. fib. If the patient is found to have paroxysmal A. fib, the recommendation would then be anticoagulation for secondary stroke prevention. Would also need to get her dural mechanic opinion on which antiplatelet they would like to keep for her heart (either aspirin or Plavix), as I typically recommend against triple therapy aspirin, Plavix, and anticoagulation, due to high risk of bleeding. It appears that the patient is unlikely to be able to get an MRI and MRA due to her pacer. Ideally would like to get a CTA of her head and neck if able to rule out critical stenosis. Patient does report allergy with hives to CT contrast dye. Family seems to indicate that she is able to get steroid premedication. Patient also needs an echocardiogram to complete stroke workup, to rule out other cardioembolic etiologies. Lipid profile is pending for modifiable stroke risk factor Follow-up PT/OT and speech therapies for discharge planning. Blood pressure recommendations while in hospital 175/95-150/80 (MAPS 90-110) Avoid hypotension and dehydration Stroke risk factor modifications and recommendations: Blood pressure recommendations for the first month post hospital discharge 150/ 90-130/80, and after that blood pressure recommendations 130/80-110/70 Total cholesterol goal 100- 200 and LDL goal less than 100 Hemoglobin A1c goal less than 7 (at goal) Encourage cardiovascular exercise at least 3 times a week for 30 minutes. Follow-up in neurology clinic in 1 month for post stroke hospital follow-up. If there is any questions or concerns, feel free to call/page me.
[2018-01-14] MEDS: METHYLPREDNISOLONE IV 40 MG in SYRINGE 0 ML IV SCH ×2 (10:58→14:11)
--- NOTE | 2018-01-14 11:00 | Pharmacy Progress Note ---
Pharmacy Glycemic Short Note 2 Date of Service Jan 14, 2018. OUTPATIENT ANTIDIABETIC REGIMEN: * Humulin 70/30 ... 30 units in the morning and 25 units in HS ASSESSMENT: * Ms Mitchell is an 82 y/o F with a PMH of CAD s/p CABG, HLD, and aortic stenosis who presents as a stroke alert. Patient has excellent control of her type 2 diabetes. * Ms Mitchell takes a combination insulin which is difficult to control as an inpatient therefore will separate into NPH plus Novolog. Reduce NPH doses by about 20% for inpatient use. Patient was hypoglycemic at 1500 yesterday secondary to not eating lunch. Blood sugars after lunch were 150-137 and fasting this morning is 85 mg/dL. Reasonable to continue NPH doses but increase threshold for NPH at dinnertime. Will loosen Novolog coverage as the patient did trend downwards at bedtime. PLAN FOR INPATIENT GLYCEMIC CONTROL: * Basal insulin * NPH 15 units in the morning and 10-14 units at dinnertime (14 units if blood sugar over 180 mg/dL) * Bolus insulin * NovoLog per scale ACHS or Q6hrs while NPO * Goal Range: Low 110 mg/dL - High 140 mg/dL * Correction Factor: 35 mg/dL/unit * Nutritional / Prandial insulin per carb ratio of 1 unit per 12 grams CHO consumed PLAN FOR DISCHARGE: * Ms Mitchell has excellent control of her blood sugars as an outpatient. If patient does not have low blood sugars it is reasonable to continue HOWEVER if patient is having hypoglycemia, recommend reducing outpatient doses.
--- NOTE | 2018-01-14 12:57 | DIAGNOSTIC IMAGING REPORT ---
HEAD ANGIO WITH CONTRAST CLINICAL HISTORY: Headache Mental status change TECHNIQUE: Transaxial acquisition with multi axial reformatted images COMPARISON STUDY: None FINDINGS: Mild scattered atelectatic changes throughout all major components of the [place] and intracranial vasculature. Approximately 50% stenosis of the cavernous aspect of the left internal carotid artery. 30% narrowing is noted on the right. No evidence for a high-grade or critical stenosis. No significant aneurysmal distention. IMPRESSION: 1. No evidence for major intracranial stenotic process. 2. No evidence for aneurysm. 3. Moderate 50% narrowing cavernous component left internal carotid artery. 4. 30% narrowing cavernous component right internal carotid artery. The above report was generated using voice recognition software. It may contain grammatical, syntax or spelling errors. Electronically signed by: Gerardo Wright M.D. 01/14/2018 12:56 PM Dictated Date/Time: 01/14/2018 12:50 PM
--- NOTE | 2018-01-14 12:59 | DIAGNOSTIC IMAGING REPORT ---
CT ANGIOGRAPHY OF THE NECK WITH CONTRAST CLINICAL HISTORY: Transient ischemic attack. COMPARISON STUDY: Carotid ultrasound January 13, 2018. Technique: CT angiography of the carotid and vertebral arteries was obtained using Tracour 320 IV and 3D reconstruction on an independent workstation. NASCET criteria was utilized. A dose lowering technique was utilized adhering to the principles of ALARA. CT DOSE: 534.66 mGy.cm Findings: There is moderate plaque within the proximal brachiocephalic trunk with mild stenosis. There is extensive atherosclerotic plaque the aortic arch. There is moderate plaque within the proximal right internal carotid artery that results in mild stenosis at the origin of the right internal carotid artery. The vessel measures 3.6 mm at site of stenosis and 5.4 mm distally. There is mild plaque within the proximal left internal carotid artery without stenosis. There is plaque at the origins of the bilateral vertebral arteries without significant stenosis. There is no dissection within the major vessels within the neck. The CTA of the head will be reported separately. Median sternotomy wires and postoperative findings consistent with bypass grafting are partially imaged. Lung apices are clear. There is no cervical lymphadenopathy. There are no suspicious osseous lesions. There is mild to moderate plaque within the bilateral common carotid arteries. IMPRESSION: 1. Moderate atherosclerotic plaque within the proximal right internal carotid artery which results in 30% stenosis. 2. Mild plaque within the proximal left internal carotid artery without significant stenosis. 3. Moderate plaque within the proximal brachiocephalic trunk that results in mild stenosis. Electronically signed by: Deyvi Casarez M.D. 01/14/2018 12:58 PM Dictated Date/Time: 01/14/2018 12:51 PM
--- NOTE | 2018-01-14 14:06 | ECHOCARDIOGRAM REPORT ---
*NOTICE TO RECEIVING [employer] This information is strictly Confidential and protected under [place] law. [place] law prohibits you from making any further disclosure of this information unless further disclosure is expressly permitted by the written consent of the person to whom it pertains or is authorized by law. A general authorization for the release of medical or other information is not sufficient for this purpose. Hospital accepts no responsibility if the information is made available to any other person, INCLUDING THE PATIENT. Interpretation Summary * Name: MARGOT SALAZAR Study Date: 01/14/2018 10:26 AM BP: 122/53 mmHg * Patient Location: [facility]\S\N289\S\2 HR: 65 * : 1935 (M/d/yyyy) Gender: Female Height: 64 in * Age: 82 yrs Ethnicity: [place] Weight: 148 lb * Ordering Physician: Reuben Pittman * Referring Physician: Self, Referred * Performed By: Amelie Gaston [facility] * * Reason For Study: STROKE * BSA: 1.7 m2 * -- Conclusions -- * There is mild concentric left ventricular hypertrophy. * Left ventricular systolic function is normal. * The left atrium is moderately dilated. * Moderate valvular aortic stenosis. * There is mild mitral annular calcification. * There is mild to moderate mitral regurgitation. * There is moderate tricuspid regurgitation. * Right ventricular systolic pressure is normal. * Cannot exclude small mobile lesion on the mitral valve. ADRIEL would better characterize the valve if clinically indicated. Procedure Details * A complete two-dimensional transthoracic echocardiogram was performed (2D, M-mode, Doppler and color flow Doppler). * A saline contrast injection was performed to assess for cardiac shunting. * The injection was performed through an intravenous line in the right arm. * The attending nurse who injected the saline contrast was DEIDRE KIRKPATRICK, LORRAINE. * A total of 20 cc of agitated saline was given. Left Ventricle * The left ventricle is normal in size. * There is mild concentric left ventricular hypertrophy. * Left ventricular systolic function is normal. * Ejection Fraction = 55-60%. * The left ventricular wall motion is normal. Right Ventricle * The right ventricle is normal in size and function. Atria * The left atrium is moderately dilated. * Right atrial size is normal. Mitral Valve * The mitral valve leaflets appear thickened, but open well. * There is mild mitral annular calcification. * Cannot exclude small mobile lesion on the mitral valve. ADRIEL would better characterize the valve if clinically indicated. * There is mild to moderate mitral regurgitation. Tricuspid Valve * The tricuspid valve is not well visualized, but is grossly normal. * There is moderate tricuspid regurgitation. * Right ventricular systolic pressure is normal. Aortic Valve * Moderate valvular aortic stenosis. * There is no significant aortic regurgitation. Pulmonic Valve * The pulmonic valve leaflets are thin and pliable; valve motion is normal. Great Vessels * The aortic root is normal size. MMode 2D Measurements and Calculations IVSd 1.6 cm IVSs 2.0 cm LVIDd 4.6 cm LVIDs 2.8 cm LVPWd 1.4 cm LVPWs 2.0 cm IVS/LVPW 1.1 FS 39.2 % EDV(Teich) 95.0 ml ESV(Teich) 28.7 ml EF(Teich) 69.8 % EDV(cubed) 94.3 ml ESV(cubed) 21.2 ml EF(cubed) 77.5 % % IVS thick 27.5 % % LVPW thick 40.4 % LV mass(C)d 282.7 grams LV mass(C)dI 164.3 grams/m\S\2 LV mass(C)s 244.0 grams LV mass(C)sI 141.8 grams/m\S\2 SV(Teich) 66.3 ml SI(Teich) 38.5 ml/m\S\2 SV(cubed) 73.1 ml SI(cubed) 42.5 ml/m\S\2 Ao root diam 2.6 cm Ao root area 5.4 cm\S\2 LA dimension 4.8 cm LA/Ao 1.8 LVOT diam 2.0 cm LVOT area 3.2 cm\S\2 LVAd ap4 30.6 cm\S\2 LVLd ap4 7.5 cm EDV(MOD-sp4) 102.9 ml EDV(sp4-el) 105.9 ml LVAs ap4 21.1 cm\S\2 LVLs ap4 6.1 cm ESV(MOD-sp4) 61.7 ml ESV(sp4-el) 62.5 ml EF(MOD-sp4) 40.0 % EF(sp4-el) 40.9 % LVAd ap2 26.5 cm\S\2 LVLd ap2 7.2 cm EDV(MOD-sp2) 84.3 ml EDV(sp2-el) 82.5 ml LVAs ap2 16.2 cm\S\2 LVLs ap2 5.7 cm ESV(MOD-sp2) 42.4 ml ESV(sp2-el) 38.7 ml EF(MOD-sp2) 49.7 % EF(sp2-el) 53.1 % LVLd %diff -4.24 % EDV(MOD-bp) 95.1 ml LVLs %diff -5.41 % ESV(MOD-bp) 50.7 ml EF(MOD-bp) 46.7 % SV(MOD-sp4) 41.2 ml SI(MOD-sp4) 23.9 ml/m\S\2 SV(MOD-sp2) 41.9 ml SI(MOD-sp2) 24.4 ml/m\S\2 SV(MOD-bp) 44.4 ml SI(MOD-bp) 25.8 ml/m\S\2 SV(sp4-el) 43.3 ml SI(sp4-el) 25.2 ml/m\S\2 SV(sp2-el) 43.8 ml SI(sp2-el) 25.4 ml/m\S\2 Doppler Measurements and Calculations MV E max ewa 59.6 cm/sec MV A max ewa 47.0 cm/sec MV E/A 1.3 MV P1/2t max ewa 119.8 cm/sec MV P1/2t 69.0 msec MVA(P1/2t) 3.2 cm\S\2 MV dec slope 508.5 cm/sec\S\2 MV dec time 0.26 sec Ao V2 max 321.7 cm/sec Ao max PG 41.5 mmHg Ao max PG (full) 38.6 mmHg Ao V2 mean 243.8 cm/sec Ao mean PG 26.1 mmHg Ao V2 VTI 83.6 cm SAMUEL(V,A) 0.86 cm\S\2 SAMUEL(V,D) 0.86 cm\S\2 LV V1 max PG 2.9 mmHg LV V1 max 85.2 cm/sec MR max ewa 646.4 cm/sec MR max PG 167.2 mmHg SV(Ao) 450.6 ml SI(Ao) 261.8 ml/m\S\2 PA V2 max 109.1 cm/sec PA max PG 4.8 mmHg PI max ewa 204.4 cm/sec PI max PG 16.7 mmHg PI dec slope 326.8 cm/sec\S\2 PI P1/2t 183.2 msec TR max ewa 257.9 cm/sec
[2018-01-14] MEDS: INSULIN HUMAN NPH SC SCH (17:44)
[2018-01-14] MEDS: ATORVASTATIN 40 MG TAB PO SCH (20:59)
[2018-01-14] MEDS: EZETIMIBE 10MG TAB PO SCH (20:59)
--- NOTE | 2018-01-14 22:25 | Progress Note ---
Subjective Date of Service: Jan 14, 2018. Subjective Pt evaluation today including: conversation w/ patient Patient was hospitalized with worsening left sided weakness with left facial droop. Symptoms worsened overnight where patient had a stroke alert called. The symptoms that worsened were her left sided weakness. No IV tPa was given for todays stroke alert. She notes to have some difficulty initiating words. But has no slurred speech. Whe I examined patient, neurology was also in the room. Problem List Medical Problems: (1) Elevated troponin Status: Acute (2) Left shoulder pain Status: Acute (3) Left-sided weakness Status: Acute Review of Systems Constitutional: No fever, No chills ENT: No hearing loss Respiratory: No cough Cardiac: No chest pain Abdomen: No pain Musculoskeletal: No joint pain Neurologic: + weakness, No memory loss Psychiatric: No depression symptoms Heme: No abnormal bleeding/bruising Endo: No fatigue Skin: No rash All Other Systems: Reviewed and Negative Medications Current Inpatient Medications Medications (Trade) Dose Ordered Sig/Irene Route Start Time Stop Time Status Last Admin Dose Admin Acetaminophen (Tylenol Tab) 650 mg Q4H PRN PO 01/13/18 14:00 02/12/18 13:59 01/15/18 06:15 650 MG Ondansetron HCl (Zofran Inj) 4 mg Q6H PRN IV 01/13/18 14:00 02/12/18 13:59 01/13/18 21:48 4 MG Polyethylene (Miralax Powder Packet) 17 gm DAILY PRN PO 01/13/18 14:00 02/12/18 13:59 Glucose (Glucose 40% Gel) 15-30 GRAMS 15 GRAMS... UD PRN PO 01/13/18 14:00 02/12/18 13:59 Glucose (Glucose Chew Tab) 4-8 Tablets 4 Tabl... UD PRN PO 01/13/18 14:00 02/12/18 13:59 Dextrose (Dextrose 50% 50ML Syringe) 25-50ML OF 50% DW IV FOR... UD PRN IV 01/13/18 14:00 02/12/18 13:59 Glucagon (Glucagon Inj) 1 mg UD PRN SQ 01/13/18 14:00 02/12/18 13:59 Miscellaneous Information (Consult Glycemic Management Pharmacy) 1 ea UD PRN N/A 01/13/18 14:40 02/12/18 14:39 Aspirin (Ecotrin Tab) 81 mg QAM PO 01/14/18 09:00 02/13/18 08:59 01/14/18 08:46 81 MG Clopidogrel Bisulfate (plAVix TAB) 75 mg QAM PO 01/14/18 09:00 02/13/18 08:59 01/14/18 08:46 75 MG EZETIMIBE (Zetia Tab) 10 mg HS PO 01/13/18 21:00 02/12/18 20:59 01/14/18 20:59 10 MG Insulin Human NPH (novoLIN-N NPH) SEE PROTOCOL TEXT QDD SC 01/13/18 17:00 02/12/18 17:59 01/14/18 17:44 14 UNITS Insulin Human NPH (novoLIN-N NPH) 15 units QDB SC 01/14/18 08:00 02/13/18 07:59 01/14/18 08:44 15 UNITS Levothyroxine Sodium (Synthroid Tab) 50 mcg DAILYBB PO 01/14/18 06:30 02/13/18 06:29 01/15/18 06:10 50 MCG Metoprolol Succinate (Toprol Xl Tab) 100 mg QAM PO 01/14/18 09:00 02/13/18 08:59 01/14/18 08:46 100 MG Atorvastatin Calcium (Lipitor Tab) 40 mg HS PO 01/14/18 21:00 02/13/18 20:59 01/14/18 20:59 40 MG Miscellaneous Information (Pharmacist Discharge Med Rec Consult) 1 ea UD PRN N/A 01/14/18 09:30 02/13/18 09:29 Ioversol (Optiray 320) 125 ml UD PRN IV 01/14/18 10:15 01/18/18 10:14 Enalapril Maleate (Vasotec Tab) 20 mg BID PO 01/15/18 09:00 02/14/18 08:59 Insulin Aspart (novoLOG ASPART) SLIDING SCALE ACHS SC 01/14/18 21:00 02/13/18 20:59 01/14/18 22:06 4 UNITS Objective Vital Signs Date Time Temp Pulse Resp B/P (MAP) Pulse Ox O2 Delivery O2 Flow Rate FiO2 01/14/18 20:12 37.0 65 18 151/55 (87) 93 Room Air 3/30/18 14:34 36.8 65 20 152/63 (92) 93 01/14/18 12:00 94 Room Air 01/14/18 12:00 Room Air 01/14/18 11:27 37.2 65 20 180/52 (94) 95 01/14/18 08:00 Room Air 01/14/18 08:00 95 Room Air 01/14/18 07:25 36.9 65 18 122/53 (76) 95 01/14/18 04:00 Room Air 01/14/18 03:56 36.9 64 18 155/56 (89) 96 Room Air 01/14/18 00:00 Room Air 01/13/18 23:35 185/61 (102) 01/13/18 23:04 37.1 65 18 157/66 (96) 95 Room Air Physical Exam Comments: GENERAL : No acute distress. Pleasant EYES: No icterus, gaze conjugate. PERRL. EOMI NOSE: No evidence of epistaxis. MOUTH: No lesions or candidiasis. Partial dentures on top and bottom in place and appears secure NECK: Supple. Bilateral carotid bruits. No stridor. LUNGS: CTA B/L, no wheezes, rales or rhonchi HEART: Regular, rate controlled. Positive aortic bruit. No appreciation of ectopy ABDOMEN: Soft, NT, ND, BS Present. No guarding or rebound tenderness EXTREMITIES: No LE edema, pedal pulses intact. No calf pain. Well-healed bilateral saphenous scars from harvesting NEURO: A&OX3. Pupils equal round and reactive to light. Strength is decreased on left upper extremity and left hip flexors. Normal strength on right Deep tendon reflexes 2 out of 4 to patellar, brachial radialis, and bicep tendons. Toes are downgoing bilaterally. No slurred speech.Left facial droop. Tongue is midline. Tongue strength is equal bilaterally on inside of cheeks. Short-term memory intact. Long-term memory intact Laboratory Results Last 24 Hours Test 01/14/18 03:34 01/14/18 08:37 01/14/18 11:32 01/14/18 16:00 White Blood Count 8.44 K/uL Red Blood Count 3.68 M/uL Hemoglobin 11.6 g/dL Hematocrit 33.6 % Mean Corpuscular Volume 91.3 fL Mean Corpuscular Hemoglobin 31.5 pg Mean Corpuscular Hemoglobin Concent 34.5 g/dl Platelet Count 177 K/uL Mean Platelet Volume 10.5 fL Neutrophils (%) (Auto) 61.3 % Lymphocytes (%) (Auto) 24.8 % Monocytes (%) (Auto) 9.2 % Eosinophils (%) (Auto) 3.9 % Basophils (%) (Auto) 0.6 % Neutrophils # (Auto) 5.17 K/uL Lymphocytes # (Auto) 2.09 K/uL Monocytes # (Auto) 0.78 K/uL Eosinophils # (Auto) 0.33 K/uL Basophils # (Auto) 0.05 K/uL RDW Standard Deviation 46.7 fL RDW Coefficient of Variation 14.1 % Immature Granulocyte % (Auto) 0.2 % Immature Granulocyte # (Auto) 0.02 K/uL Sodium Level 138 mmol/L Potassium Level 3.8 mmol/L Chloride Level 103 mmol/L Carbon Dioxide Level 27 mmol/L Anion Gap 8.0 mmol/L Blood Urea Nitrogen 20 mg/dl Creatinine 0.73 mg/dl Est Creatinine Clear Calc Drug Dose 55.3 ml/min Estimated GFR () 88.3 Estimated GFR (Non- 76.2 BUN/Creatinine Ratio 27.5 Random Glucose 85 mg/dl Calcium Level 8.5 mg/dl Troponin I 0.068 ng/ml Bedside Glucose 119 mg/dl 131 mg/dl 264 mg/dl Test 01/14/18 20:32 Bedside Glucose 269 mg/dl Assessment and Plan Right frontal lacunar stroke * CT scan of the head with no acute abnormalities. * D/W Neurology. There is evidence now of right frontal lacunar stroke * Continue aspirin and plavix for secondary stroke prevention * will have pacer interrogated to check if patient was in A. Fib. Pacemaker is [employer]. Placed order to get pacer interrogated. If the patient is found to have paroxysmal A. fib, the recommendation would then be anticoagulation for secondary stroke prevention. If. A. fib is noted, tyrese then order a fine grade operator consult to discuss whcih anticoag patient should be on, plavix/ aspi/ eliquis * Appreciate Neruo input * will obtain cta head and neck * PT/OT consult and evaluation tomorrow * Blood pressure recommendations while in hospital 175/95-150/80 (MAPS 90-110) Avoid hypotension and dehydration Stroke risk factor modifications and recommendations: Blood pressure recommendations for the first month post hospital discharge 150/ 90-130/80, and after that blood pressure recommendations 130/80-110/70 Total cholesterol goal 100- 200 and LDL goal less than 100 Hemoglobin A1c goal less than 7 (at goal) Encourage cardiovascular exercise at least 3 times a week for 30 minutes. CARDIOVASCULAR Demand ischemia * Slight bump in troponin is 0.091 * Trending down. will monitor * History of CAD with multiple CABG procedures as well as PCI with stent placement as recently as 2016 * Follows with cardiology at [facility] in [place] family reports that cardiology-has indicated that there will be no further interventions but to treat medically * Hemodynamically stable * Continue Toprol * Continue simvastatin and Zetia * No chest pain or ST changes on EKG LEFT SHOULDER PAIN * No history of trauma, ecchymosis, crepitus. Limited range of motion * Check a 2 view plain film * Monitor TYPE 2 DIABETES MELLITUS * Chronic insulin with NovoLog at bedtime and every morning * Check a hemoglobin A1c * Glycemic consult with pharmacy * Diabetic AHA diet * place on insulin lantus and sliding scale HYPOTHYROIDISM * Continue levothyroxine DVT PROPHYLAXIS * No further chemical prophylaxis as patient is already on clopidogrel and aspirin with rule out for CVA * TEDs SCDs/ordered * Ambulate as tolerated Spent 55 minutes on the management on this case, discussing with family and consultants; while reviewing chart.
[2018-01-15] VITALS (12 sets, daily range): BP systolic 151–175; BP diastolic 55–68; PULSE 65–68; TEMP 36.4–37.1; O2SAT 95–97
[2018-01-15] MEDS: INSULIN ASPART 100 UNITS/ML 3 ML PEN SC SCH ×5 (04:00→21:50)
[2018-01-15 05:54] LABS: BASO % 0.4 %; BASO ABS # 0.04 K/uL (0-0.2); EOS % 1.4 %; EOS ABS # 0.13 K/uL (0-0.5); HEMATOCRIT 35.2 % (37-47); IG# 0.03 K/uL (0.00-0.02); LYMPH % 20.8 %; LYMPH ABS # 1.91 K/uL (1.2-3.4); MEAN CELL VOLUME 92.1 fL (80-100); MEAN CORPUSCULAR HEMOGLOBIN 31.4 pg (25-34); MEAN CORPUSCULAR HGB CONC 34.1 g/dl (32-36); MEAN PLATELET VOLUME 10.7 fL (7.4-10.4); MONO % 9.9 %; MONO ABS # 0.91 K/uL (0.11-0.59); NEUT % 67.2 %; NEUT ABS # 6.17 K/uL (1.4-6.5); PLATELET COUNT 186 K/uL (130-400); RED CELL DISTRIBUTION WIDTH CV 14.2 % (11.5-14.5); RED CELL DISTRIBUTION WIDTH SD 47.4 fL (36.4-46.3); WHITE BLOOD COUNT 9.19 K/uL (4.8-10.8)
[2018-01-15] MEDS: LEVOTHYROXINE 50 MCG TAB PO SCH (06:10)
[2018-01-15] MEDS: ACETAMINOPHEN 325 MG TAB PO PRN ×3 (06:15→17:53)
[2018-01-15 06:45] LABS: CALCIUM 8.7 mg/dl (8.5-10.1); CREATININE 0.76 mg/dl (0.60-1.20); POTASSIUM 4.1 mmol/L (3.5-5.1)
[2018-01-15] MEDS: CLOPIDOGREL BISULFATE 75 MG TAB PO SCH (09:06)
[2018-01-15] MEDS: ASPIRIN 81 MG ECTAB PO SCH (09:06)
[2018-01-15] MEDS: ENALAPRIL MALEATE 10 MG TAB PO SCH ×2 (09:06→21:00)
[2018-01-15] MEDS: METOPROLOL SUCC 50MG EXT REL TAB PO SCH (09:07)
[2018-01-15] MEDS: INSULIN HUMAN NPH SC SCH (09:10)
--- NOTE | 2018-01-15 13:38 | CARDIOLOGY CONSULTATION ---
DATE OF CONSULTATION: 01/15/2018 PERTINENT HISTORY: Mrs. Mitchell is an 82-year-old white female admitted on 01/13/2018 with a presumed TIA. She then had progression of her symptoms and suffered a CVA. Pacemaker interrogation noted atrial fibrillation, and therefore, this consultation was ordered. Of note, the patient typically follows with Dr. Dejesus in [place]. The patient is an 82-year-old white female who was in her usual state of health until the day of presentation. She noted paresthesias down both arms and had a left-sided facial droop. She presented to the Emergency Room for further care. After being admitted, the patient had progression of her symptoms and a CT scan of the brain noted an acute right frontal lacunar infarction. A stroke alert was called but no thrombolysis was performed. The patient has a longstanding history of coronary artery disease. She has had 2 separate coronary artery bypass grafting procedures performed. One was done in [place] and the second one in [place]. The conduits and bypass targets are unknown. She has also had numerous intracoronary stenting procedures. The most recent was performed in 2015. The patient had a dual-chamber pacemaker placed back in 1998. She had a generator change in 07/2016. Apparently, the patient had an episode of syncope and bradycardia prompting the initial procedure. The patient is active on a daily basis. She does live in a senior citizens community. She claims to dance at least 1 day each week. She does not experience exertional angina pectoris or limiting dyspnea. She further denies syncope, presyncope, PND, orthopnea, palpitations, lower extremity edema or claudication. According to the patient's granddaughter, a nurse, she was on Coumadin many years ago. She is uncertain as to why that medication was discontinued. Currently, the patient is resting comfortably in bed without complaints. PAST MEDICAL HISTORY: 1. Coronary artery disease. 2. Coronary artery bypass grafting surgery -- 2 separate procedures -- details unknown. 3. History of intracoronary stenting -- details unknown. 4. Paroxysmal atrial fibrillation. 5. DDD pacemaker -- 1998, 07/2016 -- [employer] device. 6. Hypertension. 7. Left ventricular hypertrophy. 8. Moderate aortic stenosis. 9. Mild to moderate mitral regurgitation. 10. Left carotid endarterectomy. 11. Diabetes mellitus. 12. Hypothyroidism. MEDICATIONS: 1. Metoprolol succinate 100 mg daily. 2. Vasotec 20 mg b.i.d. 3. Lipitor 40 mg at bedtime. 4. Aspirin 81 mg per day. 5. Plavix 75 mg per day. 6. Zetia 10 mg daily. 7. Insulin. 8. Synthroid 0.05 mg daily. ALLERGIES: 1. PENICILLIN -- HIVES. 2. CONTRAST DYE -- HIVES. SOCIAL HISTORY: The patient is a and lives alone. Does not use tobacco or alcohol. FAMILY HISTORY: Noncontributory. REVIEW OF SYSTEMS: A 10-point review of systems is negative except for that described above. PHYSICAL EXAMINATION: GENERAL: This is a well-developed, well-nourished elderly white female lying supine in bed without complaints. VITAL SIGNS: Blood pressure is 170/60 with regular pulse of 65. Respiratory rate is 20. The patient is afebrile at 37.1 degrees Celsius. Saturation is 95% on room air. HEENT: Notes slight left-sided facial droop. NECK: Supple with mildly delayed and prolonged carotid upstrokes. A transmitted murmur is noted bilaterally. Jugular venous pressure is flat at 90 degrees. There is no thyromegaly. CARDIOVASCULAR: Reveals a regular rhythm with a 2/6 crescendo-decrescendo systolic murmur heard loudest at the base. S2 is audible at the apex. LUNGS: Clear without rales, rhonchi or wheeze. ABDOMEN: Soft, nontender without bruits. EXTREMITIES: Reveal intact radial artery and posterior tibial pulses bilaterally. There is no peripheral edema. DATA: CBC notes hemoglobin of 12.0, hematocrit 35.2, white count 9.1, platelet count 186,000. Electrolytes note sodium 137, potassium 4.1, chloride 104, bicarbonate 27, BUN 19, creatinine 0.76 and glucose of 200. LDL cholesterol is 44 with an HDL of 42. Initial troponin was 0.091, followed by 0.076 and 0.068. Echocardiogram notes normal left ventricular systolic function with an ejection fraction of 55-60%. There is mild left ventricular hypertrophy and moderate aortic stenosis. Mild to moderate mitral regurgitation is also seen. EKG notes atrial pacing and prolonged AV conduction. Chest x-ray shows no acute disease. Carotid ultrasound notes bilateral moderate disease. Pacer interrogation notes atrial fibrillation 3.9% of the time since her last interrogation. Many episodes are longer than 24 hours in length. IMPRESSION: Mrs. Mitchell had a recent acute right frontal lacunar infarction. Pacer interrogation suggests frequent episodes of atrial fibrillation. Would suggest long-term anticoagulation with Coumadin versus one of the newer agents. The patient and family would prefer a newer agent if covered by her insurance. Agree with Dr. John that would not keep the patient on triple therapy. Would likely discontinue aspirin and continue Plavix realizing her intracoronary stents. PLAN: 1. Would favor long-term anticoagulation with either Xarelto or Eliquis. 2. Discontinue aspirin. 3. Continue Plavix and all other cardiac medications. 4. Further recommendations pending on her clinical course.
--- NOTE | 2018-01-15 13:47 | Pharmacy Progress Note ---
Pharmacy Glycemic Short Note 2 Date of Service Jan 15, 2018. OUTPATIENT ANTIDIABETIC REGIMEN: * Humulin 70/30 ... 30 units in the morning and 25 units in HS ASSESSMENT: * Pt has received 43 units of insulin over the past 24hrs * AM fasting BSG in goal range - but pt did require 6 units of correctional insulin overnight, therefore, increase in basal insulin dosing warranted. Current basal insulin dosing is less than outpatient dosing * Post-prandial BSGs elevated, will tighten CF/CR. PLAN FOR INPATIENT GLYCEMIC CONTROL: * Basal insulin: increase dosing * NPH 18 units in the morning and 16 units at dinnertime * Bolus insulin: tighten parameters * NovoLog per scale ACHS or Q6hrs while NPO * Goal Range: Low 120 mg/dL - High 150 mg/dL * Correction Factor: 25 mg/dL/unit for breakfast and 30 mg/dl/unit for all other meals and bedtime * Nutritional / Prandial insulin per carb ratio of 1 unit per 8 grams CHO consumed for breakfast and 10 for all other meals and bedtime PLAN FOR DISCHARGE: * Ms Mitchell has excellent control of her blood sugars as an outpatient. If patient does not have low blood sugars it is reasonable to continue HOWEVER if patient is having hypoglycemia, recommend reducing outpatient doses.
--- NOTE | 2018-01-15 16:05 | Progress Note ---
Subjective Date of Service: Jan 15, 2018. Subjective Pt evaluation today including: conversation w/ patient, conversation w/ family , chart review, lab review, conversation w/ lead sales consultant, review of inpatient medication list Pain: No pain reported PO Intake: Good oral intake Voiding: no voiding problems Patient is seen and examined by me. Patient is able to move her left upper and lower extremities but feels weak on the left side. Patient did have a pacemaker interrogation which shows A. fib about 30% of the time. We did discuss with the family regarding getting an input from cardiology regarding anticoagulation. Patient denies chest pain, shortness of breath, dizziness, palpitation or loss of consciousness. Patient denies abdominal pain, nausea, vomiting and urinary symptoms. Patient denies blurry vision and headache. Patient is accompanied by her granddaughter. Problem List Medical Problems: (1) Elevated troponin Status: Acute (2) Left shoulder pain Status: Acute (3) Left-sided weakness Status: Acute Review of Systems All Other Systems: Reviewed and Negative Objective Vital Signs Date Time Temp Pulse Resp B/P (MAP) Pulse Ox O2 Delivery O2 Flow Rate FiO2 01/15/18 15:35 36.9 66 18 159/67 (97) 97 Room Air 01/15/18 12:49 95 Room Air 01/15/18 11:37 37.1 65 20 172/64 (100) 95 01/15/18 08:00 97 Room Air 01/15/18 07:19 36.8 68 20 170/62 (98) 97 01/15/18 04:00 36.7 65 18 151/65 (93) 95 Room Air 01/15/18 04:00 Room Air 01/15/18 00:00 36.4 65 18 175/55 (95) 95 Room Air 01/15/18 00:00 Room Air 01/14/18 20:12 37.0 65 18 151/55 (87) 93 Room Air 01/14/18 20:00 93 Room Air 01/14/18 16:00 93 Room Air Laboratory Results Last 24 Hours Test 01/14/18 16:00 01/14/18 20:32 01/14/18 23:43 01/15/18 04:48 Bedside Glucose 264 mg/dl 269 mg/dl 204 mg/dl 115 mg/dl Test 01/15/18 05:11 01/15/18 07:11 01/15/18 11:41 White Blood Count 9.19 K/uL Red Blood Count 3.82 M/uL Hemoglobin 12.0 g/dL Hematocrit 35.2 % Mean Corpuscular Volume 92.1 fL Mean Corpuscular Hemoglobin 31.4 pg Mean Corpuscular Hemoglobin Concent 34.1 g/dl Platelet Count 186 K/uL Mean Platelet Volume 10.7 fL Neutrophils (%) (Auto) 67.2 % Lymphocytes (%) (Auto) 20.8 % Monocytes (%) (Auto) 9.9 % Eosinophils (%) (Auto) 1.4 % Basophils (%) (Auto) 0.4 % Neutrophils # (Auto) 6.17 K/uL Lymphocytes # (Auto) 1.91 K/uL Monocytes # (Auto) 0.91 K/uL Eosinophils # (Auto) 0.13 K/uL Basophils # (Auto) 0.04 K/uL RDW Standard Deviation 47.4 fL RDW Coefficient of Variation 14.2 % Immature Granulocyte % (Auto) 0.3 % Immature Granulocyte # (Auto) 0.03 K/uL Sodium Level 137 mmol/L Potassium Level 4.1 mmol/L Chloride Level 104 mmol/L Carbon Dioxide Level 27 mmol/L Anion Gap 6.0 mmol/L Blood Urea Nitrogen 19 mg/dl Creatinine 0.76 mg/dl Est Creatinine Clear Calc Drug Dose 52.9 ml/min Estimated GFR () 84.1 Estimated GFR (Non- 72.5 BUN/Creatinine Ratio 24.7 Random Glucose 97 mg/dl Calcium Level 8.7 mg/dl Triglycerides Level 157 mg/dl Cholesterol Level 117 mg/dl HDL Cholesterol 42 mg/dl LDL Cholesterol, Calculated 44 mg/dl VLDL Cholesterol, Calculated 31 mg/dl Cholesterol/HDL Ratio 2.8 Chemistry Specimen Hemolysis Bedside Glucose 118 mg/dl 200 mg/dl Assessment and Plan Right frontal lacunar stroke -Status post acute right frontal lacunar stroke -Pacemaker interrogation noted atrial fibrillation, and therefore cardiology consult was obtained which recommended stopping aspirin and continue with Plavix and Eliquis. -Continue with rest of the cardiac medication. -Appreciate neurology recommendation -Follow-up PT/OT and speech therapies for discharge planning. -Blood pressure recommendations while in hospital 175/95-150/80 (MAPS 90-110) -Avoid hypotension and dehydration -Stroke risk factor modifications and recommendations: -Blood pressure recommendations for the first month post hospital discharge 150/ 90-130/80, and after that blood pressure recommendations 130/80-110/70 -Total cholesterol goal 100- 200 and LDL goal less than 100 -Hemoglobin A1c goal less than 7 (at goal) -Encourage cardiovascular exercise at least 3 times a week for 30 minutes. -Follow-up in neurology clinic in 1 month for post stroke hospital follow-up. History of coronary artery disease status post CABG 2. -Continue with Plavix, Eliquis, statins and beta blockers. -Patient follows with Dr. Vargas in [place]. Left shoulder pain * No history of trauma, ecchymosis, crepitus. Limited range of motion * Check a 2 view plain film * Monitor Type 2 diabetes * Chronic insulin with NovoLog at bedtime and every morning * Check a hemoglobin A1c * Glycemic consult with pharmacy * Diabetic AHA diet * place on insulin lantus and sliding scale Hypothyroidism * Continue levothyroxine DVT prophylaxis * Plavix and Eliquis * TEDs SCDs/ordered * Ambulate as tolerated Continued [facility] stay due to: home environment unsafe for pt Discharge planning: rehab hospital
--- NOTE | 2018-01-15 16:06 | Neurology Progress Notes ---
Neurology Progress Note Date of Service Jan 15, 2018. Subjective Patient denies any new neurological symptoms today. No new numbness or weakness. Still's feels unsteady with walking and balance. Total cholesterol 117, LDL 44, HDL 42, triglycerides 157 CTA of the head and neck was reviewed and no critical stenosis although she does have atherosclerotic plaques. Echocardiogram did not see anything specific for cardioembolic source also reported that there may have been or could not rule out a small mobile lesion of the mitral valve. Reportedly interrogation of the patient's pacemaker did find that she was going in and out of A. fib. Patient has been seen by cardiology who has recommended anticoagulation, continuing Plavix, and discontinuation of aspirin Objective Date Time Temp Pulse Resp B/P (MAP) Pulse Ox O2 Delivery O2 Flow Rate FiO2 01/15/18 15:35 36.9 66 18 159/67 (97) 97 Room Air 01/15/18 12:49 95 Room Air 01/15/18 11:37 37.1 65 20 172/64 (100) 95 01/15/18 08:00 97 Room Air 01/15/18 07:19 36.8 68 20 170/62 (98) 97 01/15/18 04:00 36.7 65 18 151/65 (93) 95 Room Air 01/15/18 04:00 Room Air 01/15/18 00:00 36.4 65 18 175/55 (95) 95 Room Air 01/15/18 00:00 Room Air 01/14/18 20:12 37.0 65 18 151/55 (87) 93 Room Air 01/14/18 20:00 93 Room Air 01/14/18 16:00 93 Room Air Last 24 Hours Test 01/14/18 16:00 01/14/18 20:32 01/14/18 23:43 01/15/18 04:48 Bedside Glucose 264 mg/dl 269 mg/dl 204 mg/dl 115 mg/dl Test 01/15/18 05:11 01/15/18 07:11 01/15/18 11:41 White Blood Count 9.19 K/uL Red Blood Count 3.82 M/uL Hemoglobin 12.0 g/dL Hematocrit 35.2 % Mean Corpuscular Volume 92.1 fL Mean Corpuscular Hemoglobin 31.4 pg Mean Corpuscular Hemoglobin Concent 34.1 g/dl Platelet Count 186 K/uL Mean Platelet Volume 10.7 fL Neutrophils (%) (Auto) 67.2 % Lymphocytes (%) (Auto) 20.8 % Monocytes (%) (Auto) 9.9 % Eosinophils (%) (Auto) 1.4 % Basophils (%) (Auto) 0.4 % Neutrophils # (Auto) 6.17 K/uL Lymphocytes # (Auto) 1.91 K/uL Monocytes # (Auto) 0.91 K/uL Eosinophils # (Auto) 0.13 K/uL Basophils # (Auto) 0.04 K/uL RDW Standard Deviation 47.4 fL RDW Coefficient of Variation 14.2 % Immature Granulocyte % (Auto) 0.3 % Immature Granulocyte # (Auto) 0.03 K/uL Sodium Level 137 mmol/L Potassium Level 4.1 mmol/L Chloride Level 104 mmol/L Carbon Dioxide Level 27 mmol/L Anion Gap 6.0 mmol/L Blood Urea Nitrogen 19 mg/dl Creatinine 0.76 mg/dl Est Creatinine Clear Calc Drug Dose 52.9 ml/min Estimated GFR () 84.1 Estimated GFR (Non- 72.5 BUN/Creatinine Ratio 24.7 Random Glucose 97 mg/dl Calcium Level 8.7 mg/dl Triglycerides Level 157 mg/dl Cholesterol Level 117 mg/dl HDL Cholesterol 42 mg/dl LDL Cholesterol, Calculated 44 mg/dl VLDL Cholesterol, Calculated 31 mg/dl Cholesterol/HDL Ratio 2.8 Chemistry Specimen Hemolysis Bedside Glucose 118 mg/dl 200 mg/dl Exam: Gen.: Patient is alert and oriented in no acute distress sitting on bed Neurological examination: Mental status: Patient is alert and oriented to person place and time. Able to give his own history. Attention concentration normal for the situation. Remote and recent memory intact Speech is fluent without any dysarthria or aphasia noted Cranial nerves: Extraocular muscles intact without nystagmus. No facial asymmetry noted. Facial sensation intact. Tongue midline. Hearing grossly intact voice. Strength: Right upper extremity strength 5/5. Left upper extremity strength 4+/ 5. No arm drift. Bilateral hip flexion 5/5, B/L dorsi and plantar flexion 5/5 Sensation: Grossly intact to light touch in all extremities Coordination: Mild Dysmetria noted with finger to nose testing on the left Station sitting on the side of the bed is normal. Current Inpatient Medications Medications (Trade) Dose Ordered Sig/Irene Route Start Time Stop Time Status Last Admin Dose Admin Acetaminophen (Tylenol Tab) 650 mg Q4H PRN PO 01/13/18 14:00 02/12/18 13:59 01/15/18 12:31 650 MG Ondansetron HCl (Zofran Inj) 4 mg Q6H PRN IV 01/13/18 14:00 02/12/18 13:59 01/13/18 21:48 4 MG Polyethylene (Miralax Powder Packet) 17 gm DAILY PRN PO 01/13/18 14:00 02/12/18 13:59 Glucose (Glucose 40% Gel) 15-30 GRAMS 15 GRAMS... UD PRN PO 01/13/18 14:00 02/12/18 13:59 Glucose (Glucose Chew Tab) 4-8 Tablets 4 Tabl... UD PRN PO 01/13/18 14:00 02/12/18 13:59 Dextrose (Dextrose 50% 50ML Syringe) 25-50ML OF 50% DW IV FOR... UD PRN IV 01/13/18 14:00 02/12/18 13:59 Glucagon (Glucagon Inj) 1 mg UD PRN SQ 01/13/18 14:00 02/12/18 13:59 Miscellaneous Information (Consult Glycemic Management Pharmacy) 1 ea UD PRN N/A 01/13/18 14:40 02/12/18 14:39 Clopidogrel Bisulfate (plAVix TAB) 75 mg QAM PO 01/14/18 09:00 02/13/18 08:59 01/15/18 09:06 75 MG EZETIMIBE (Zetia Tab) 10 mg HS PO 01/13/18 21:00 02/12/18 20:59 01/14/18 20:59 10 MG Levothyroxine Sodium (Synthroid Tab) 50 mcg DAILYBB PO 01/14/18 06:30 02/13/18 06:29 01/15/18 06:10 50 MCG Metoprolol Succinate (Toprol Xl Tab) 100 mg QAM PO 01/14/18 09:00 02/13/18 08:59 01/15/18 09:07 100 MG Atorvastatin Calcium (Lipitor Tab) 40 mg HS PO 01/14/18 21:00 02/13/18 20:59 01/14/18 20:59 40 MG Miscellaneous Information (Pharmacist Discharge Med Rec Consult) 1 ea UD PRN N/A 01/14/18 09:30 02/13/18 09:29 Ioversol (Optiray 320) 125 ml UD PRN IV 01/14/18 10:15 01/18/18 10:14 Enalapril Maleate (Vasotec Tab) 20 mg BID PO 01/15/18 09:00 02/14/18 08:59 01/15/18 09:06 20 MG Insulin Human NPH (novoLIN-N NPH) 16 units QDD SC 01/15/18 17:00 02/14/18 16:59 Insulin Human NPH (novoLIN-N NPH) 18 units QDB SC 01/15/18 08:00 02/14/18 07:59 01/15/18 09:10 18 UNITS Insulin Aspart (novoLOG ASPART) SLIDING SCALE QDB SC 01/16/18 08:00 02/15/18 07:59 Insulin Aspart (novoLOG ASPART) SLIDING SCALE TID@1100,1630,2100 SC 01/15/18 16:30 02/14/18 16:29 Apixaban (Eliquis Tab) 2.5 mg BID PO 01/15/18 21:00 02/14/18 20:59 UNV Impression This is a 82-year-old female who presents with an acute right frontal lacunar stroke. I am also suspicious that she could have additional stroke in her cerebellum or brainstem area due to left-sided ataxia. Residual neurological deficits include mild left hemiplegia, mild to moderate left-sided ataxia. Stroke risk factors include paroxysmal A. fib, diabetes type 2, and dyslipidemia. Plan Agree with initiation of anticoagulation for secondary stroke prevention. Echocardiogram report noted that it could not exclude a small mobile lesion of the mitral valve and recommended a ADRIEL. Considering that we are already starting anticoagulation, I do not know that it is necessarily important to get a ADRIEL, so I will leave this up to cardiology whether they feel a ADRIEL is necessary at this junction. Follow-up PT/OT and speech therapies for discharge planning. Blood pressure recommendations while in hospital 175/95-150/80 (MAPS 90-110) Avoid hypotension and dehydration Stroke risk factor modifications and recommendations: Blood pressure recommendations for the first month post hospital discharge 150/ 90-130/80, and after that blood pressure recommendations 130/80-110/70 Total cholesterol goal 100- 200 and LDL goal less than 70 (at goal) Hemoglobin A1c goal less than 7 (at goal) Encourage cardiovascular exercise at least 3 times a week for 30 minutes. Follow-up in neurology clinic in 1 month for post stroke hospital follow-up. No additional neurological recommendations at this time. If there is any questions or concerns, feel free to call/page me.
[2018-01-15] MEDS ORDERED: INSULIN HUMAN NPH SC SCH (17:00)
[2018-01-15] MEDS: APIXABAN 2.5 MG TAB PO SCH (21:43)
[2018-01-15] MEDS: ATORVASTATIN 40 MG TAB PO SCH (21:43)
[2018-01-15] MEDS: EZETIMIBE 10MG TAB PO SCH (21:44)
[2018-01-16] MEDS: ACETAMINOPHEN 325 MG TAB PO PRN ×3 (00:02→17:49)
[2018-01-16] MEDS: LEVOTHYROXINE 50 MCG TAB PO SCH (04:09)
[2018-01-16 04:15] VITALS: BP 155/57; PULSE 66; TEMP 36.7; O2SAT 95
[2018-01-16 07:07] VITALS: BP 172/68; PULSE 65; TEMP 36.9; O2SAT 96
[2018-01-16 07:50] LABS: BASO % 0.5 %; BASO ABS # 0.05 K/uL (0-0.2); EOS % 3.2 %; EOS ABS # 0.29 K/uL (0-0.5); HEMATOCRIT 36.3 % (37-47); HEMOGLOBIN 12.5 g/dL (12.0-16.0); IG# 0.03 K/uL (0.00-0.02); LYMPH % 28.9 %; LYMPH ABS # 2.64 K/uL (1.2-3.4); MEAN CELL VOLUME 91.7 fL (80-100); MEAN CORPUSCULAR HEMOGLOBIN 31.6 pg (25-34); MEAN CORPUSCULAR HGB CONC 34.4 g/dl (32-36); MEAN PLATELET VOLUME 10.7 fL (7.4-10.4); MONO % 8.7 %; MONO ABS # 0.79 K/uL (0.11-0.59); NEUT % 58.4 %; NEUT ABS # 5.32 K/uL (1.4-6.5); PLATELET COUNT 198 K/uL (130-400); RED CELL DISTRIBUTION WIDTH CV 14.1 % (11.5-14.5); RED CELL DISTRIBUTION WIDTH SD 46.5 fL (36.4-46.3); WHITE BLOOD COUNT 9.12 K/uL (4.8-10.8)
[2018-01-16 08:00] LABS: CREATININE 0.77 mg/dl (0.60-1.20)
[2018-01-16] MEDS ORDERED: INSULIN ASPART 100 UNITS/ML 3 ML PEN SC SCH (08:00)
[2018-01-16] MEDS: METOPROLOL SUCC 50MG EXT REL TAB PO SCH (08:26)
[2018-01-16] MEDS: CLOPIDOGREL BISULFATE 75 MG TAB PO SCH (08:26)
[2018-01-16] MEDS: ENALAPRIL MALEATE 10 MG TAB PO SCH ×2 (08:27→21:29)
[2018-01-16] MEDS: APIXABAN 2.5 MG TAB PO SCH ×2 (08:27→21:27)
[2018-01-16] MEDS ORDERED: INSULIN HUMAN NPH SC SCH (08:30)
--- NOTE | 2018-01-16 11:25 | Pharmacy Progress Note ---
Pharmacy Glycemic Short Note 2 Date of Service Jan 16, 2018. OUTPATIENT ANTIDIABETIC REGIMEN: * Humulin 70/30 ... 30 units in the morning and 25 units in HS Item Value Date Time Bedside Glucose 118 mg/dl H 01/15/18 0711 Bedside Glucose 200 mg/dl H 01/15/18 1141 Bedside Glucose 210 mg/dl H 01/15/18 1600 Bedside Glucose 172 mg/dl H 01/15/18 2018 Bedside Glucose 81 mg/dl 01/16/18 0716 ASSESSMENT: * Pt has been receiving ~ 42 units of insulin per day with near adequate control * AM fasting BSG slightly below goal range at 81 mg/dl --> will decrease PM dosing of NPH. Since BSG below goal range this morning will give a one time lower dose of AM NPH dose. * Post-prandial BSGs elevated, will tighten CF/CR. PLAN FOR INPATIENT GLYCEMIC CONTROL: * Basal insulin: * NPH 16 units SQ x 1 dose this AM for BSG = 81 mg/dl, then, change dosing to: * NPH 18 in the morning and 15 units at dinnertime * Bolus insulin: tighten parameters * NovoLog per scale ACHS or Q6hrs while NPO * Goal Range: Low 100 mg/dL - High 140 mg/dL * Correction Factor: 25 mg/dL/unit * Nutritional / Prandial insulin per carb ratio of 1 unit per 8 grams CHO consumed PLAN FOR DISCHARGE: * Ms Mitchell has excellent control of her blood sugars as an outpatient. If patient does not have low blood sugars it is reasonable to continue HOWEVER if patient is having hypoglycemia, recommend reducing outpatient doses.
[2018-01-16 11:42] VITALS: BP 146/59; PULSE 65; TEMP 36.9; O2SAT 95
[2018-01-16] MEDS: INSULIN ASPART 100 UNITS/ML 3 ML PEN SC SCH ×3 (12:26→20:39)
--- NOTE | 2018-01-16 13:00 | Progress Note ---
Subjective Date of Service: Jan 16, 2018. Subjective Pt evaluation today including: conversation w/ patient, physical exam, chart review, lab review, review of inpatient medication list Voiding: no voiding problems, no incontinence Problem List Medical Problems: (1) Elevated troponin Status: Acute (2) Left shoulder pain Status: Acute (3) Left-sided weakness Status: Acute Review of Systems All Other Systems: Reviewed and Negative Medications Medications (Trade) Dose Ordered Sig/Irene Route Start Time Stop Time Status Last Admin Dose Admin Insulin Human NPH (novoLIN-N NPH) 16 units QDD FL 01/15/18 17:00 01/16/18 08:18 DC 01/15/18 17:47 16 UNITS Insulin Aspart (novoLOG ASPART) SLIDING SCALE QDB FL 01/16/18 08:00 01/16/18 10:00 DC 01/16/18 08:30 7 UNITS Insulin Aspart (novoLOG ASPART) SLIDING SCALE TID@1100,1630,2100 FL 01/15/18 16:30 01/16/18 07:52 DC 01/15/18 21:50 1 UNITS Apixaban (Eliquis Tab) 2.5 mg BID PO 01/15/18 21:00 02/14/18 20:59 01/16/18 08:27 2.5 MG Insulin Human NPH (novoLIN-N NPH) 16 units Silveira@0830 FL 01/16/18 08:30 01/16/18 08:31 DC 01/16/18 08:35 16 UNITS Objective Vital Signs Date Time Temp Pulse Resp B/P (MAP) Pulse Ox O2 Delivery O2 Flow Rate FiO2 01/16/18 12:00 Room Air 01/16/18 11:42 36.9 65 20 146/59 (88) 95 01/16/18 08:00 Room Air 01/16/18 07:07 36.9 65 16 172/68 (102) 96 Room Air 01/16/18 04:15 36.7 66 18 155/57 (89) 95 Room Air 01/16/18 04:00 Room Air 01/16/18 00:00 Room Air 01/15/18 22:44 36.4 65 18 174/68 (103) 97 Room Air 01/15/18 20:53 65 160/63 (95) 01/15/18 20:00 97 Room Air 01/15/18 18:41 36.9 66 20 158/61 (93) 96 01/15/18 16:00 97 Room Air 01/15/18 15:35 36.9 66 18 159/67 (97) 97 Room Air Physical Exam General Appearance: WD/WN, no apparent distress Eyes: EOMI Neck: supple Respiratory/Chest: chest non-tender, lungs clear, normal breath sounds, no respiratory distress Cardiovascular: no edema, no murmur Abdomen: normal bowel sounds, non tender, soft Extremities: normal range of motion, no pedal edema, no calf tenderness Neurologic/Psychiatric: alert, normal mood/affect, oriented x 3 Skin: no rash Lymphatic: no adenopathy Laboratory Results Last 24 Hours Test 01/15/18 16:00 01/15/18 20:18 01/16/18 06:45 01/16/18 07:16 Bedside Glucose 210 mg/dl 172 mg/dl 81 mg/dl White Blood Count 9.12 K/uL Red Blood Count 3.96 M/uL Hemoglobin 12.5 g/dL Hematocrit 36.3 % Mean Corpuscular Volume 91.7 fL Mean Corpuscular Hemoglobin 31.6 pg Mean Corpuscular Hemoglobin Concent 34.4 g/dl Platelet Count 198 K/uL Mean Platelet Volume 10.7 fL Neutrophils (%) (Auto) 58.4 % Lymphocytes (%) (Auto) 28.9 % Monocytes (%) (Auto) 8.7 % Eosinophils (%) (Auto) 3.2 % Basophils (%) (Auto) 0.5 % Neutrophils # (Auto) 5.32 K/uL Lymphocytes # (Auto) 2.64 K/uL Monocytes # (Auto) 0.79 K/uL Eosinophils # (Auto) 0.29 K/uL Basophils # (Auto) 0.05 K/uL RDW Standard Deviation 46.5 fL RDW Coefficient of Variation 14.1 % Immature Granulocyte % (Auto) 0.3 % Immature Granulocyte # (Auto) 0.03 K/uL Sodium Level 138 mmol/L Potassium Level 4.0 mmol/L Chloride Level 102 mmol/L Carbon Dioxide Level 30 mmol/L Anion Gap 6.0 mmol/L Blood Urea Nitrogen 20 mg/dl Creatinine 0.77 mg/dl Est Creatinine Clear Calc Drug Dose 47.8 ml/min Estimated GFR () 82.8 Estimated GFR (Non- 71.4 BUN/Creatinine Ratio 26.7 Random Glucose 81 mg/dl Calcium Level 9.0 mg/dl Test 01/16/18 11:50 Bedside Glucose 122 mg/dl Assessment and Plan Right frontal lacunar stroke -Status post acute right frontal lacunar stroke -Pacemaker interrogation noted atrial fibrillation, and therefore cardiology consult was obtained which recommended stopping aspirin and continue with Plavix and Eliquis. -Continue with rest of the cardiac medication. -Appreciate neurology recommendation -Follow-up PT/OT and speech therapies for discharge planning. -Blood pressure recommendations while in hospital 175/95-150/80 (MAPS 90-110) -Avoid hypotension and dehydration -Stroke risk factor modifications and recommendations: -Blood pressure recommendations for the first month post hospital discharge 150/ 90-130/80, and after that blood pressure recommendations 130/80-110/70 -Total cholesterol goal 100- 200 and LDL goal less than 100 -Hemoglobin A1c goal less than 7 (at goal) -Encourage cardiovascular exercise at least 3 times a week for 30 minutes. -Follow-up in neurology clinic in 1 month for post stroke hospital follow-up. History of coronary artery disease status post CABG 2. -Continue with Plavix, Eliquis, statins and beta blockers. -Patient follows with Dr. Vargas in [place]. Left shoulder pain * No history of trauma, ecchymosis, crepitus. Limited range of motion * Check a 2 view plain film * Monitor Type 2 diabetes * Chronic insulin with NovoLog at bedtime and every morning * Check a hemoglobin A1c * Glycemic consult with pharmacy * Diabetic AHA diet * place on insulin lantus and sliding scale Hypothyroidism * Continue levothyroxine DVT prophylaxis * Plavix and Eliquis * TEDs SCDs/ordered * Ambulate as tolerated Dc planing need rehab Continued [facility] stay due to: home environment unsafe for pt Discharge planning: rehab hospital
--- NOTE | 2018-01-16 13:20 | CARDIOLOGY PROGRESS NOTE ---
DATE: 01/16/2018 SUBJECTIVE: Mrs. Mitchell is resting comfortably in bed without complaints of chest pain, dyspnea, or palpitations. Her family is at the bedside. She tolerated the addition of low dose Eliquis without difficulty. OBJECTIVE: VITAL SIGNS: Blood pressure is 146/59 with a regular pulse of 65. Her sed rate is 20. The patient is afebrile at 36.9 degree Celsius. Saturations 95% on room air. NECK: Supple with full carotid upstrokes. There are no carotid bruits. Jugular venous pressure is flat at 90 degrees. There is no thyromegaly. CARDIOVASCULAR: Reveals a regular rhythm with a 2/6 crescendo-decrescendo systolic murmur heard loudest at the base. S2 is audible at the apex. LUNGS: Clear without rales, rhonchi, or wheeze. ABDOMEN: Soft and nontender without bruits. EXTREMITIES: Reveal intact radial artery pulse bilaterally. There is no peripheral edema. DATA: CBC notes a hemoglobin of 12.5, hematocrit 36.3, white count 9.12, platelet count 198,000. Electrolytes note a sodium of 138, potassium 4.0, chloride 102, bicarbonate 30, BUN 20, creatinine 0.77, glucose 81. potline monitor notes atrial fibrillation and appropriate ventricular pacing. IMPRESSION AND PLAN: 1. Paroxysmal atrial fibrillation -- likely etiology of her recent cerebrovascular accident. Agree with initiating Eliquis for long-term anticoagulation. Continue metoprolol succinate for rate control. 2. Coronary artery disease -- status post coronary artery bypass grafting x2 procedures. Details unknown. 3. History of intracoronary stenting -- details unknown. A note from an outside provider suggest medical management only. 4. DDD pacemaker -- in 1998, 07/2016, [employer] device. 5. Hypertension -- with mild left ventricular hypertrophy. 6. Moderate aortic stenosis. 7. Psva-di-oxmugrff mitral regurgitation. 8. Diabetes mellitus. MTDD
[2018-01-16 15:12] VITALS: BP 144/55; PULSE 64; TEMP 37.2; O2SAT 96
[2018-01-16] MEDS: INSULIN HUMAN NPH SC SCH ×2 (15:49→17:13)
[2018-01-16 19:24] VITALS: BP 136/71; PULSE 66; TEMP 36.8; O2SAT 95
[2018-01-16] MEDS ORDERED: MoRPHine SULFATE 2 MG/ML CARP IV PRN (21:00)
[2018-01-16] MEDS ORDERED: KETOROLAC TROMETHAMINE 15 MG/ML VIAL IV. PRN (21:00)
[2018-01-16] MEDS: EZETIMIBE 10MG TAB PO SCH (21:27)
[2018-01-16] MEDS: ATORVASTATIN 40 MG TAB PO SCH (21:29)
[2018-01-16 22:29] VITALS: BP 146/65; PULSE 65; TEMP 36.5; O2SAT 96
[2018-01-17] VITALS (7 sets, daily range): BP systolic 114–175; BP diastolic 61–66; PULSE 64–99; TEMP 36.6–37.2; O2SAT 95–100
[2018-01-17] MEDS: ONDANSETRON INJ 2 MG/ML 2 ML VIAL IV PRN (06:15)
[2018-01-17] MEDS: LEVOTHYROXINE 50 MCG TAB PO SCH (06:15)
[2018-01-17] MEDS: CLOPIDOGREL BISULFATE 75 MG TAB PO SCH (07:59)
[2018-01-17] MEDS: APIXABAN 2.5 MG TAB PO SCH (08:00)
[2018-01-17] MEDS: ENALAPRIL MALEATE 10 MG TAB PO SCH (08:00)
[2018-01-17] MEDS: METOPROLOL SUCC 50MG EXT REL TAB PO SCH (08:00)
[2018-01-17] MEDS: INSULIN ASPART 100 UNITS/ML 3 ML PEN SC SCH ×3 (08:06→17:11)
[2018-01-17] MEDS: INSULIN HUMAN NPH SC SCH ×2 (08:07→17:00)
--- NOTE | 2018-01-17 12:57 | CARDIOLOGY PROGRESS NOTE ---
DATE: 01/17/2018 SUBJECTIVE: Mrs. Mitchell is resting comfortably at the bedside without complaints of chest pain, dyspnea, or palpitations. She is participating in physical therapy. OBJECTIVE: VITAL SIGNS: Her blood pressure is 114/63 with a regular pulse of 65. Respiratory rate is 16. The patient is afebrile at 36.9 degrees centigrade, saturating 100% on room air. NECK: Supple with full carotid upstrokes. No carotid bruits. Jugular venous pressure is flat at 90%. CARDIOVASCULAR: Reveals a regular rhythm with normal S1 and S2. A 2/6 crescendo decrescendo systolic murmurs, heard loudest at the bases. LUNGS: Clear without rales, rhonchi, or wheeze. ABDOMEN: Soft, nontender without bruits. EXTREMITIES: Reveal intact radial pulse bilaterally. There is no peripheral edema. DATA: Bedside glucose is 129. front desk monitor notes appropriate pacing. No evidence of atrial fibrillation. IMPRESSION AND PLAN: 1. Paroxysmal atrial fibrillation -- likely etiology of her recent cerebrovascular accident. Tolerating low dose Eliquis without difficulty. Continue metoprolol succinate for rate control. 2. Coronary artery disease -- status post coronary artery bypass grafting x2 separate procedures. Details unknown. 3. History of intracoronary stenting -- details unknown. 4. DDD pacemaker -- in 1998, and a generator change in July 2016. [employer] device. 5. Hypertension -- with mild left ventricular hypertrophy. 6. Moderate aortic stenosis. 7. Mild mitral regurgitation. 8. Diabetes mellitus. MTDD
[2018-01-17] MEDS: ACETAMINOPHEN 325 MG TAB PO PRN (15:52)
[2018-01-17] MEDS ORDERED: ELQ25 PO (16:03)
--- NOTE | 2018-01-17 16:04 | Discharge Instructions ---
Discharge Instructions Date of Service Jan 17, 2018. Admission Reason for Admission: Tia (Transient Ischmic Attack) Discharge Discharge Diagnosis / Problem: CVA Discharge Goals Goal(s): Decrease discomfort, Improve function, Increase independence Activity Recommendations Activity Level: Assistance Required Therapies: Physical Therapy, Occupational Therapy . Additional Information Patient informed of condition: Yes Advance Directives: Yes DNR: No Level of Care: Acute Rehab Communicable Disease: No Prognosis: Improving Mullen Catheter: No Instructions / Follow-Up Instructions / Follow-Up Dr. Cornejo in [address] Coleman in 1 week Current Hospital Diet Patient's current hospital diet: AHA Diet (Heart Healthy), Diabetes Type 2 Diet Discharge Diet Recommended Diet: AHA Diet (Heart Healthy), Diabetes Type 2 Diet Pending Studies Studies pending at discharge: no Physician Orders On Transfer Additional Orders: BP goal of 150/90 - 130/90 for the next month After that, back to usual BP goals <130/90 Laboratory Results Hemoglobin A1c Test 01/13/18 15:53 Range/Units Estimated Average Glucose 126 mg/dl Hemoglobin A1c 6.0 H 4.5-5.6 % Lipid Panel Test 01/15/18 05:11 Range/Units Triglycerides Level 157 H 0-150 mg/dl Cholesterol Level 117 0-200 mg/dl HDL Cholesterol 42 mg/dl Cholesterol/HDL Ratio 2.8 LDL Cholesterol, Calculated 44 mg/dl Medical Emergencies . Who to Call and When: Medical Emergencies: If at any time you feel your situation is an emergency, please call 911 immediately. . Non-Emergent Contact Non-Emergency issues call your: Primary Care Provider . . "Provider Documentation" section prepared by Bonita Moe. . Core Measure Problem Core Measures: Stroke Stroke Core Measures Reason no t-PA for Stroke: Treatment not indicated Reason no antithrom by day 2: Treatment provided - N/A Reason no antithrom at D/C: Treatment provided - N/A Reason no statin at D/C: Treatment provided - N/A Reason no anticoag w/a fib: Treatment provided - N/A
--- NOTE | 2018-01-17 16:10 | Discharge Summary ---
Discharge Summary Date of Service Jan 17, 2018. Discharge Summary Admission Date: Jan 13, 2018 at 13:45 Discharge Date: Jan 17, 2018 Discharge Disposition: Rehab Principal Diagnosis: CVA Problems/Secondary Diagnoses: CABG CAD s/p stent Hyperlipidemia DM Aortic stenosis L CEA Hypothyroid Consultations: Cardiology Neurology Medication Reconciliation New Medications: Apixaban (Eliquis) 2.5 Mg Tab 2.5 MG PO BID for 30 Days, #60 TAB Continued Medications: Acetaminophen (Tylenol) 500 Mg Tab 500 MG PO HS Aspirin (Aspirin 81 Low Dose) 81 Mg Chw 1 TAB PO QAM Clopidogrel Bisulfate (Plavix) 75 Mg Tab 75 MG PO QAM Ezetimibe (Zetia) 10 Mg Tab 10 MG PO HS Insulin Isophan/Regular (Humulin 70/30) Susp 30 UNITS SC QAM, VIAL Insulin Isophan/Regular (Humulin 70/30) Susp 25 UNITS SC QDD, VIAL Levothyroxine Sodium (Levothyroxine Sodium) 50 Mcg Tab 1 TAB PO QAM Metoprolol Succ (Toprol Xl) (Toprol-Xl ) 100 Mg Tabcr 100 MG PO QAM Ramipril (Ramipril) 10 Mg Cap 1 CAP PO BID Simvastatin (Zocor) 80 Mg Tab 80 MG PO QPM Discharge Exam Pt is feeling overall improved. She did have mild nausea overnight w/o emesis and this has since resolved. She ate her breakfast without issue. She feels that her L sided weakness is much better now. Still feels weak in her L LE at times, but better. Pt denies fever, SOB, chest pain, abd pain, c/d, LE pain or swelling. 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 -Avoid hypotension and dehydration -Stroke risk factor modifications and recommendations: -Blood pressure recommendations for the first month post hospital discharge 150/ 90-130/80, and after that blood pressure recommendations 130/80-110/70 -Total cholesterol goal 100- 200 and LDL goal less than 100 -Hemoglobin A1c goal less than 7 (at goal) -Encourage cardiovascular exercise at least 3 times a week for 30 minutes. -Follow-up in neurology clinic in 1 month for post stroke hospital follow-up. History of coronary artery disease status post CABG 2. -Continue with Plavix, Eliquis, statins and beta blockers. -Patient follows with Dr. Vargas in [place]. Left shoulder pain * No history of trauma, ecchymosis, crepitus. Limited range of motion XR neg Type 2 diabetes Stable, continue prior regimen A1c 6.0 Hypothyroidism * Continue levothyroxine Total Time Spent: Greater than 30 minutes This includes examination of the patient, discharge planning, medication reconciliation, and communication with other providers. Discharge Instructions Please refer to the electronic Patient Visit Report (Discharge Instructions) for additional information. Follow-Up Dr. Cornejo in [address] Coleman in 1 week Additional Copies To [facility]; Kraig Cronejo M.D.
[2018-02-02] MEDS ORDERED: CLOP1TAB54 PO (13:10)
[2018-02-02] MEDS ORDERED: SIMV80TA2 PO (13:10)
[2018-02-02] MEDS ORDERED: RAMI10CA PO (13:10)
[2018-02-02] MEDS ORDERED: EZET10TA63 PO (13:10)
[2018-02-02] MEDS ORDERED: LEVO50TA6 PO (13:10)
[2018-02-02] MEDS ORDERED: ACET-1256 PO (13:19)
[2018-02-02] MEDS ORDERED: INSU1INJ SC ×2 (14:30)
== END 2018-01-17 17:40 | DRG 65 ==
LOC: C.EDA 12:00 → C.MED 13:45 → ENRESERV 13:55
PROVIDERS: ADMIT Internal Medicine; ATTEND Family Medicine
DX: I63.8 Other cerebral infarction (principal); G81.94 Hemiplegia, unspecified affecting left nondominant side; I24.8 Other forms of acute ischemic heart disease; R29.810 Facial weakness; R27.0 Ataxia, unspecified; M25.512 Pain in left shoulder; I48.0 Paroxysmal atrial fibrillation; I25.10 Atherosclerotic heart disease of native coronary artery without angina pectoris; I08.0 Rheumatic disorders of both mitral and aortic valves; E11.9 Type 2 diabetes mellitus without complications; E03.9 Hypothyroidism, unspecified; E78.5 Hyperlipidemia, unspecified; Z95.0 Presence of cardiac pacemaker; Z95.5 Presence of coronary angioplasty implant and graft; Z95.1 Presence of aortocoronary bypass graft; Z87.891 Personal history of nicotine dependence; Z79.01 Long term (current) use of anticoagulants; Z79.4 Long term (current) use of insulin; Z79.82 Long term (current) use of aspirin; Z79.899 Other long term (current) drug therapy; Z88.0 Allergy status to penicillin; Z91.041 Radiographic dye allergy status

== ENCOUNTER 2018-02-02 19:05 | Inpatient (IN) | payer BC, OTHER ==
[~2018-02-02] VITALS: Ht 162.6 cm; Wt 62.0 kg
[~2018-02-02 19:05] MED LIST changes: -APIX1TAB PO; -METO5TAB2 PO; -OMEP40CA41 PO; -ONDA8TAB12 PO; -SUCR1TAB29 PO; -TPRSR/100 PO
[2018-02-02] MEDS ORDERED: FAMOTIDINE 20 MG TAB PO STA (20:04)
[2018-02-02] MEDS ORDERED: SODIUM CHLORIDE 0.9% 1000ML 1,000 ML IV STA (20:04)
[2018-02-02] MEDS ORDERED: CHOLESTYRAMINE LIGHT 4 GM PKT PO STA (20:04)
[2018-02-02] MEDS ORDERED: ONDANSETRON INJ 2 MG/ML 2 ML VIAL IV STA (20:04)
--- NOTE | 2018-02-02 20:33 | EMERGENCY ROOM VISIT NOTE ---
History Report prepared by Ayala: Hiwot Ferreira Under the Supervision of: Dr. Michael Jama M.D. First contact with patient: 19:54 Chief Complaint: ABNORMAL LABS Stated Complaint: LOW SODIUM, NEED IV HYDRATION- REFERRED History of Present Illness The patient is a 82 year old female who presents to the Emergency Room with complaints of persistent abnormal laboratory results which were obtained today by her primary care physician. Her daughter notes that the patient has been to the Emergency Department several times in the last couple of weeks. She was seen at [facility] last night, for vomiting where the patient was told she has been dehydrated. Today, during a follow up visit with her primary care physician, he told her that her sodium level was low. He recommended she come to the Emergency Department for further evaluation. The patient states that she has experienced diarrhea 3 times within the last 15 minutes. She reports having a pace maker in place. Source of History: patient, family (daughter) Onset: today Position: other (blood ) Quality: other (abnormal lab results) Timing: other (persistent) Associated Symptoms: + vomiting, + diarrhea (3x in last 15 mins) Note: Associated symptoms include: low sodium and dehydrated. Review of Systems See HPI for pertinent positives & negatives. A total of 10 systems reviewed and were otherwise negative. Past Medical & Surgical Medical Problems: (1) CAD (coronary artery disease) (2) TIA (transient ischemic attack) Surgical Problems: (1) Hx of CABG Family History Patient reports no known family medical history. No pertinent family history. Social History Smoking Status: Never Smoker Smokeless Tobacco Use: No Alcohol Use: none Drug Use: none Occupation Status: retired Current/Historical Medications Scheduled Apixaban (Eliquis), 2.5 MG PO BID Clopidogrel Bisulfate (Plavix), 75 MG PO QAM Ezetimibe (Zetia), 10 MG PO QPM Insulin Isophan/Regular (Humulin 70/30), 30 UNITS SC QAM Insulin Isophan/Regular (Humulin 70/30), 25 UNITS SC QPM Levothyroxine Sodium (Levothyroxine Sodium), 50 MCG PO QAM Metoclopramide Hcl (Metoclopramide Hcl), 5 MG PO QID Metoprolol Succinate (Metoprolol Succinate ER), 50 MG PO BID Omeprazole (Prilosec), 40 MG PO QAM Ramipril (Ramipril), 10 MG PO BID Simvastatin (Zocor), 80 MG PO QPM Sucralfate (Carafate), 1 GM PO QID Scheduled PRN Acetaminophen (Tylenol), 500 MG PO UD PRN for Pain or Fever Allergies Coded Allergies: Penicillins (Unverified Allergy, Intermediate, HIVES, 01/13/18) Uncoded Allergies: CONTRAST (Adverse Reaction, Intermediate, HIVES, 01/13/18) Physical Exam Vital Signs Date Time Temp Pulse Resp B/P (MAP) Pulse Ox O2 Delivery O2 Flow Rate FiO2 02/02/18 21:21 65 18 133/84 97 Room Air 02/02/18 20:15 65 02/02/18 20:05 97 Room Air 02/02/18 19:10 36.8 72 20 135/63 96 Room Air Physical Exam GENERAL: Awake, alert, well-appearing, in no acute distress HENT: Normocephalic, atraumatic. Oropharynx unremarkable. EYES: Normal conjunctiva. Sclera non-icteric. NECK: Supple. No nuchal rigidity. FROM. No JVD. RESPIRATORY: Clear to auscultation. CARDIAC: Regular rate, normal rhythm. Extremities warm and well perfused. Pulses equal. ABDOMEN: Soft, non-distended. No tenderness to palpation. No rebound or guarding. No masses. RECTAL: Deferred. MUSCULOSKELETAL: Chest examination reveals no tenderness. The back is symmetrical on inspection without obvious abnormality. There is no CVA tenderness to palpation. No joint edema. LOWER EXTREMITIES: Calves are equal size bilaterally and non-tender. No edema. No discoloration. NEURO: Normal sensorium. No sensory or motor deficits noted. SKIN: No rash or jaundice noted. Medical Decision & Procedures ER Provider Diagnostic Interpretation: Radiology results as stated below per my review and radiologist interpretation: CHEST ONE VIEW PORTABLE CLINICAL HISTORY: 82 years-old Female presenting with Pt c/o N V. TECHNIQUE: Portable upright AP view of the chest was obtained. COMPARISON: 01/13/2018. FINDINGS: Right subclavian pacer with leads to the right atrium and right ventricular apex in place. Median sternotomy wires and mediastinal surgical clips unchanged. Atherosclerosis of aortic arch. Cardiac silhouette mildly enlarged, unchanged. Coronary artery stents are coronary artery calcification noted. No focal opacity. No large effusion or pneumothorax. Multiple prominent skin folds project over the right hemithorax. Osseous structures normal. Upper abdomen normal. IMPRESSION: 1. Cardiomegaly. No other convincing evidence of acute cardiopulmonary disease. Electronically signed by: Adrian Rocha M.D. 02/02/2018 9:27 PM Dictated Date/Time: 02/02/2018 9:26 PM ABD/PELVIS NO IV OR ORAL CONT CLINICAL HISTORY: 82 years-old Female presenting with Pt c/o abd pain, dehydration, nausea and vomiting. TECHNIQUE: Multidetector CT of the abdomen and pelvis was performed without the use of intravenous contrast. IV contrast: None. A dose lowering technique was used consistent with the principles of ALARA (as low as reasonably achievable). COMPARISON: None. CT DOSE (mGy.cm): The estimated cumulative dose is 1053.79 mGy.cm. FINDINGS: Liquefaction And Regasification Helper topogram: Partially visualized pacer wires. Median sternotomy wires and mediastinal surgical clips. Lung bases: Lungs and pleural spaces clear. Persistent visualized pacer wires to the right atrium and right ventricular apex. Median sternotomy wires partially visualized with suspected coronary artery bypass. Mitral annular calcification. Normal heart size. No pericardial or pleural effusion. Liver: Normal morphology. Normal density. Biliary: No gross biliary ductal dilatation allowing for noncontrast technique. Normal gallbladder. Pancreas: Normal noncontrast appearance. Spleen: Normal noncontrast appearance. Adrenal glands: 1.7 cm nodule in the medial limb of the left adrenal gland indeterminate by density. Right adrenal gland normal. Kidneys and ureters: Prominent renal vascular calcification. No convincing evidence of nephrolithiasis. Normal noncontrast appearance of the renal parenchyma. No hydronephrosis. Ureters normal. Bladder: Incompletely evaluated secondary to underdistention. Pelvic organs: Uterus surgically absent. No adnexal masses. Bowel: Fluid in the colon suggests a diarrheal state. Scattered diverticula in the colon. No pericolonic fat infiltration. The cecum is located in the right pelvis and may be distended with fluid though an underlying soft tissue mass is difficult to exclude (series 5 image 341). The appendix is not visualized though no inflammatory changes evident in the right lower quadrant. Small hiatal hernia. No bowel obstruction. Peritoneal cavity: No free fluid or intraperitoneal gas. Lymph nodes: No gross lymphadenopathy allowing for noncontrast technique. Vasculature: Severe calcified atherosclerotic plaque evident throughout. Normal caliber abdominal aorta. Displacement of intimal calcifications in the infrarenal aorta may indicate chronic short segment dissections. Abdominal wall: Postsurgical changes of the ventral midline infraumbilical abdominal wall. Slight asymmetry of breast parenchyma. This is nonspecific. Small fat-containing of the hernia. Musculoskeletal: Degenerative changes of the spine. Degenerative changes of the hips, right greater than left. Degenerative changes of the sacroiliac joints. IMPRESSION: 1. Fluid throughout the colon suggests a diarrheal state. No significant inflammatory change to suggest a severe colitis. No bowel obstruction. 2. The cecum may be slightly distended and contain fluid though an underlying soft tissue mass is difficult to exclude. Gastroenterology consultation for nonurgent outpatient colonoscopy could be considered to evaluate this region versus follow-up contrast enhanced CT. 3. Indeterminate 1.7 cm nodule in the left adrenal gland. This could be further evaluated if clinically indicated. 4. Significant atherosclerosis. Electronically signed by: Adrian Rocha M.D. 02/02/2018 9:07 PM Dictated Date/Time: 02/02/2018 9:00 PM HEAD WITHOUT CONTRAST (CT) CLINICAL HISTORY: 82 years-old Female presenting with Pt c/o N V. TECHNIQUE: Multidetector CT imaging of the head was performed without the use of intravenous contrast. IV contrast: None. A dose lowering technique was used consistent with the principles of ALARA (as low as reasonably achievable). COMPARISON: 01/13/2018 CT DOSE (mGy.cm): The estimated cumulative dose is 1053.79. FINDINGS: Liquefaction And Regasification Helper topogram: Partially visualized pacer, median sternotomy wires, and mediastinal surgical clips. Proportional ventricular and sulcal prominence, likely age-related parenchymal volume loss. Periventricular and subcortical white matter hypoattenuation, nonspecific but likely indicative of chronic small vessel ischemic change. Focal hypodensity involving overlying andre matter in the right frontal region is unchanged, likely interval development of focal hypodensity in the periventricular white matter of the right frontoparietal region (series 2 image 18), likely subacute or chronic infarct. No mass effect or midline shift. No hemorrhage or acute territorial infarct. No extra-axial fluid collection. Paranasal sinuses and mastoid air cells clear. Calvarium intact. Postsurgical changes of the globes. IMPRESSION: 1. Interval development of focal hypodensity in the periventricular white matter of the right frontoparietal region. This may represent an acute or subacute lacunar infarct. 2. Extensive chronic small vessel ischemic change. 3. Subacute or chronic right frontoparietal infarct. Electronically signed by: Adrian Rocha M.D. 02/02/2018 8:58 PM Dictated Date/Time: 02/02/2018 8:54 PM Laboratory Results 02/02/18 20:05 Red Blood Count 3.87, Mean Corpuscular Volume 90.2, Mean Corpuscular Hemoglobin 31.8, Mean Corpuscular Hemoglobin Concent 35.2, Mean Platelet Volume 10.3, Neutrophils (%) (Auto) 66.8, Lymphocytes (%) (Auto) 23.6, Monocytes (%) (Auto) 7.4, Eosinophils (%) (Auto) 1.3, Basophils (%) (Auto) 0.6, Neutrophils # (Auto) 8.87, Lymphocytes # (Auto) 3.14, Monocytes # (Auto) 0.98, Eosinophils # (Auto) 0.17, Basophils # (Auto) 0.08 02/02/18 20:05 Test 02/02/18 20:05 White Blood Count 13.28 K/uL (4.8-10.8) Red Blood Count 3.87 M/uL (4.2-5.4) Hemoglobin 12.3 g/dL (12.0-16.0) Hematocrit 34.9 % (37-47) Mean Corpuscular Volume 90.2 fL (80-100) Mean Corpuscular Hemoglobin 31.8 pg (25-34) Mean Corpuscular Hemoglobin Concent 35.2 g/dl (32-36) Platelet Count 288 K/uL (130-400) Mean Platelet Volume 10.3 fL (7.4-10.4) Neutrophils (%) (Auto) 66.8 % Lymphocytes (%) (Auto) 23.6 % Monocytes (%) (Auto) 7.4 % Eosinophils (%) (Auto) 1.3 % Basophils (%) (Auto) 0.6 % Neutrophils # (Auto) 8.87 K/uL (1.4-6.5) Lymphocytes # (Auto) 3.14 K/uL (1.2-3.4) Monocytes # (Auto) 0.98 K/uL (0.11-0.59) Eosinophils # (Auto) 0.17 K/uL (0-0.5) Basophils # (Auto) 0.08 K/uL (0-0.2) RDW Standard Deviation 48.4 fL (36.4-46.3) RDW Coefficient of Variation 14.7 % (11.5-14.5) Immature Granulocyte % (Auto) 0.3 % Immature Granulocyte # (Auto) 0.04 K/uL (0.00-0.02) Prothrombin Time 10.9 SECONDS (9.0-12.0) Prothromb Time International Ratio 1.0 (0.9-1.1) Activated Partial Thromboplast Time 26.8 SECONDS (21.0-31.0) Partial Thromboplastin Ratio 1.0 Anion Gap 10.0 mmol/L (3-11) Est Creatinine Clear Calc Drug Dose 34.4 ml/min Estimated GFR () 55.6 Estimated GFR (Non- 48.0 BUN/Creatinine Ratio 24.8 (10-20) Osmolality 280 mOsm/kg (280-300) Calcium Level 9.0 mg/dl (8.5-10.1) Magnesium Level 2.1 mg/dl (1.8-2.4) Total Bilirubin 0.7 mg/dl (0.2-1) Direct Bilirubin 0.2 mg/dl (0-0.2) Aspartate Amino Transf (AST/SGOT) 18 U/L (15-37) Alanine Aminotransferase (ALT/SGPT) 18 U/L (12-78) Alkaline Phosphatase 92 U/L (45-117) Total Creatine Kinase 71 U/L (26-192) Creatine Kinase MB 1.9 ng/ml (0.5-3.6) Creatine Kinase MB Ratio 2.7 (0-3.0) Troponin I < 0.015 ng/ml (0-0.045) Total Protein 7.5 gm/dl (6.4-8.2) Albumin 3.8 gm/dl (3.4-5.0) Thyroid Stimulating Hormone (TSH) 1.260 uIu/ml (0.300-4.500) Labs reviewed by ED physician. Medications Administered Medications (Trade) Dose Ordered Sig/Irene Route Start Time Stop Time Status Last Admin Dose Admin Sodium Chloride 1,000 ml @ 999 mls/hr Q1H1M STAT IV 4/18/18 20:04 02/02/18 21:04 DC 02/02/18 20:14 999 MLS/HR Ondansetron HCl (Zofran Inj) 4 mg NOW STAT IV 02/02/18 20:04 02/02/18 20:08 DC 02/02/18 20:26 4 MG Cholestyramine Resin (Questran Powder Light) 4 gm BID@10,22 STAT PO 02/02/18 20:04 02/02/18 20:08 DC 02/02/18 20:04 4 GM Famotidine (Pepcid Tab) 20 mg NOW STAT PO 02/02/18 20:04 02/02/18 20:08 DC 02/02/18 20:26 20 MG ECG Per My Interpretation Indication: vomiting Rate (beats per minute): 65 Rhythm: other (paced rhythm) Findings: RBBB, other (No ST elevation or depression) ED Course 1956: Past medical records reviewed. The patient was evaluated in room B6. A complete history and physical examination was performed. 2003: Ordered Pepcid Tab 20mg PO, Cholestyramine Resin 4gm PO, Zofran Inj 4mg IV , and Sodium Chloride 1000ml @ 999 mls/hr IV. 2109: I discussed the patient's case with Dr. Johnson, [facility] [place] Hospitalist. He has agreed to evaluate the patient for further management and care. 2118: I revaluated the patient and updated her and her family on test findings and the treatment plan. They verbalized complete understanding and agreement. Medical Decision Differential diagnosis: Etiologies such as metabolic, infection, hypo/hyperglycemia, electrolyte abnormalities, cardiac sources, intracerebral event, toxicologic, neurologic, as well as others were entertained. This is an 82-year-old female who presents emergency department complaining of hyponatremia. Due to the myriad of patient complaints including cyclical vomiting, the patient was sent for CT of the head as well as CT of the abdomen and pelvis. Patient's CT of the head was concerning for a subacute lacunar infarct. This was discussed with the hospitalist service who agreed to admit the patient. I will note that the patient's sodium has fallen even lower and is now 129. Patient was given normal saline bolus here in the emergency department along with Zofran. Medication Reconcilliation Current Medication List: was personally reviewed by me Blood Pressure Screening Patient's blood pressure: Normal blood pressure Blood pressure disposition: Did not require urgent referral Consults Time Called: 2109 Consulting Physician: Dr. Johnson Returned Call: 2109 I discussed the patient's case with Dr. Johnson, [facility] [place] Hospitalist. He has agreed to evaluate the patient for further management and care. Impression Primary Impression: Hyponatremia Additional Impression: Emesis Scribe Attestation The scribe's documentation has been prepared under my direction and personally reviewed by me in its entirety. I confirm that the note above accurately reflects all work, treatment, procedures, and medical decision making performed by me. Departure Information Dispostion Being Evaluated By Hospitalist Referrals Ofelia Barron DO (PCP) Forms HOME CARE DOCUMENTATION FORM, IMPORTANT VISIT INFORMATION, WORK / SCHOOL INSTRUCTIONS Patient Instructions My [facility] Health Problem Qualifiers Additional Impression: Emesis Vomiting type: unspecified Vomiting Intractability: unspecified Nausea presence: unspecified Qualified Codes: R11.10 - Vomiting, unspecified
[2018-02-02 20:34] LABS: BASO % 0.6 %; BASO ABS # 0.08 K/uL (0-0.2); EOS % 1.3 %; EOS ABS # 0.17 K/uL (0-0.5); HEMATOCRIT 34.9 % (37-47); HEMOGLOBIN 12.3 g/dL (12.0-16.0); IG# 0.04 K/uL (0.00-0.02); LYMPH % 23.6 %; LYMPH ABS # 3.14 K/uL (1.2-3.4); MEAN CELL VOLUME 90.2 fL (80-100); MEAN CORPUSCULAR HEMOGLOBIN 31.8 pg (25-34); MEAN CORPUSCULAR HGB CONC 35.2 g/dl (32-36); MEAN PLATELET VOLUME 10.3 fL (7.4-10.4); MONO % 7.4 %; MONO ABS # 0.98 K/uL (0.11-0.59); NEUT % 66.8 %; NEUT ABS # 8.87 K/uL (1.4-6.5); PLATELET COUNT 288 K/uL (130-400); RED CELL DISTRIBUTION WIDTH CV 14.7 % (11.5-14.5); RED CELL DISTRIBUTION WIDTH SD 48.4 fL (36.4-46.3); WHITE BLOOD COUNT 13.28 K/uL (4.8-10.8)
[2018-02-02 20:46] LABS: ALBUMIN 3.8 gm/dl (3.4-5.0); ALT/SGPT 18 U/L (12-78); AST/SGOT 18 U/L (15-37); BLOOD UREA NITROGEN 27 mg/dl (7-18); CARBON DIOXIDE 23 mmol/L (21-32); CREATININE 1.07 mg/dl (0.60-1.20); GLUCOSE 148 mg/dl (70-99); POTASSIUM 4.1 mmol/L (3.5-5.1); SODIUM 129 mmol/L (136-145)
--- NOTE | 2018-02-02 20:59 | DIAGNOSTIC IMAGING REPORT ---
HEAD WITHOUT CONTRAST (CT) CLINICAL HISTORY: 82 years-old Female presenting with Pt c/o N V. TECHNIQUE: Multidetector CT imaging of the head was performed without the use of intravenous contrast. IV contrast: None. A dose lowering technique was used consistent with the principles of ALARA (as low as reasonably achievable). COMPARISON: 01/13/2018 CT DOSE (mGy.cm): The estimated cumulative dose is 1053.79. FINDINGS: Radio Mechanic Helper topogram: Partially visualized pacer, median sternotomy wires, and mediastinal surgical clips. Proportional ventricular and sulcal prominence, likely age-related parenchymal volume loss. Periventricular and subcortical white matter hypoattenuation, nonspecific but likely indicative of chronic small vessel ischemic change. Focal hypodensity involving overlying andre matter in the right frontal region is unchanged, likely interval development of focal hypodensity in the periventricular white matter of the right frontoparietal region (series 2 image 18), likely subacute or chronic infarct. No mass effect or midline shift. No hemorrhage or acute territorial infarct. No extra-axial fluid collection. Paranasal sinuses and mastoid air cells clear. Calvarium intact. Postsurgical changes of the globes. IMPRESSION: 1. Interval development of focal hypodensity in the periventricular white matter of the right frontoparietal region. This may represent an acute or subacute lacunar infarct. 2. Extensive chronic small vessel ischemic change. 3. Subacute or chronic right frontoparietal infarct. Electronically signed by: Adrian Rocha M.D. 02/02/2018 8:58 PM Dictated Date/Time: 02/02/2018 8:54 PM
[2018-02-02 21:01] LABS: ALKALINE PHOSPHATASE 92 U/L (45-117); CKMB 1.9 ng/ml (0.5-3.6); TOTAL PROTEIN 7.5 gm/dl (6.4-8.2)
--- NOTE | 2018-02-02 21:08 | DIAGNOSTIC IMAGING REPORT ---
ABD/PELVIS NO IV OR ORAL CONT CLINICAL HISTORY: 82 years-old Female presenting with Pt c/o abd pain, dehydration, nausea and vomiting. TECHNIQUE: Multidetector CT of the abdomen and pelvis was performed without the use of intravenous contrast. IV contrast: None. A dose lowering technique was used consistent with the principles of ALARA (as low as reasonably achievable). COMPARISON: None. CT DOSE (mGy.cm): The estimated cumulative dose is 1053.79 mGy.cm. FINDINGS: Meter Calibrator topogram: Partially visualized pacer wires. Median sternotomy wires and mediastinal surgical clips. Lung bases: Lungs and pleural spaces clear. Persistent visualized pacer wires to the right atrium and right ventricular apex. Median sternotomy wires partially visualized with suspected coronary artery bypass. Mitral annular calcification. Normal heart size. No pericardial or pleural effusion. Liver: Normal morphology. Normal density. Biliary: No gross biliary ductal dilatation allowing for noncontrast technique. Normal gallbladder. Pancreas: Normal noncontrast appearance. Spleen: Normal noncontrast appearance. Adrenal glands: 1.7 cm nodule in the medial limb of the left adrenal gland indeterminate by density. Right adrenal gland normal. Kidneys and ureters: Prominent renal vascular calcification. No convincing evidence of nephrolithiasis. Normal noncontrast appearance of the renal parenchyma. No hydronephrosis. Ureters normal. Bladder: Incompletely evaluated secondary to underdistention. Pelvic organs: Uterus surgically absent. No adnexal masses. Bowel: Fluid in the colon suggests a diarrheal state. Scattered diverticula in the colon. No pericolonic fat infiltration. The cecum is located in the right pelvis and may be distended with fluid though an underlying soft tissue mass is difficult to exclude (series 5 image 341). The appendix is not visualized though no inflammatory changes evident in the right lower quadrant. Small hiatal hernia. No bowel obstruction. Peritoneal cavity: No free fluid or intraperitoneal gas. Lymph nodes: No gross lymphadenopathy allowing for noncontrast technique. Vasculature: Severe calcified atherosclerotic plaque evident throughout. Normal caliber abdominal aorta. Displacement of intimal calcifications in the infrarenal aorta may indicate chronic short segment dissections. Abdominal wall: Postsurgical changes of the ventral midline infraumbilical abdominal wall. Slight asymmetry of breast parenchyma. This is nonspecific. Small fat-containing of the hernia. Musculoskeletal: Degenerative changes of the spine. Degenerative changes of the hips, right greater than left. Degenerative changes of the sacroiliac joints. IMPRESSION: 1. Fluid throughout the colon suggests a diarrheal state. No significant inflammatory change to suggest a severe colitis. No bowel obstruction. 2. The cecum may be slightly distended and contain fluid though an underlying soft tissue mass is difficult to exclude. Gastroenterology consultation for nonurgent outpatient colonoscopy could be considered to evaluate this region versus follow-up contrast enhanced CT. 3. Indeterminate 1.7 cm nodule in the left adrenal gland. This could be further evaluated if clinically indicated. 4. Significant atherosclerosis. Electronically signed by: Adrian Rocha M.D. 02/02/2018 9:07 PM Dictated Date/Time: 02/02/2018 9:00 PM
[2018-02-02 21:24] LABS: PTT PATIENT 26.8 SECONDS (21.0-31.0)
--- NOTE | 2018-02-02 21:29 | DIAGNOSTIC IMAGING REPORT ---
CHEST ONE VIEW PORTABLE CLINICAL HISTORY: 82 years-old Female presenting with Pt c/o N V. TECHNIQUE: Portable upright AP view of the chest was obtained. COMPARISON: 01/13/2018. FINDINGS: Right subclavian pacer with leads to the right atrium and right ventricular apex in place. Median sternotomy wires and mediastinal surgical clips unchanged. Atherosclerosis of aortic arch. Cardiac silhouette mildly enlarged, unchanged. Coronary artery stents are coronary artery calcification noted. No focal opacity. No large effusion or pneumothorax. Multiple prominent skin folds project over the right hemithorax. Osseous structures normal. Upper abdomen normal. IMPRESSION: 1. Cardiomegaly. No other convincing evidence of acute cardiopulmonary disease. Electronically signed by: Adrian Rocha M.D. 02/02/2018 9:27 PM Dictated Date/Time: 02/02/2018 9:26 PM
[2018-02-02] MEDS ORDERED: METO5TAB2 PO (21:39)
[2018-02-02] MEDS ORDERED: APIX1TAB PO (21:39)
[2018-02-02] MEDS ORDERED: OMEP40CA41 PO (21:39)
[2018-02-02] MEDS ORDERED: SUCR1TAB29 PO (21:39)
[2018-02-02] MEDS ORDERED: TPRSR/100 PO (21:39)
[2018-02-02] MEDS ORDERED: HEPARIN IV LOW DOSE NO BOLUS STA (23:07)
--- NOTE | 2018-02-02 23:07 | History and Physical ---
History & Physical Date & Time of Service: Feb 02, 2018 at 22:40 Chief Complaint: Low Sodium, Need Iv Hydration- Referred Primary Care Physician: Ofelia Barron DO History of Present Illness Source: patient, family Patient is an 82 year old female with a PMH of Stroke, NV, DM and HLD that presented to [facility] due to worsening nausea and vomiting. Patient was discharged from [facility] on January 17 due to a stroke. She was discharged to [facility] where she was sent home last Wednesday. Since her stroke she has had persistent nausea and vomiting. Her nausea and vomiting occur after eating or after taking her medicine. Associated symptoms include fatigue and weakness She denies any abdominal pain, dizziness, stroke like symptoms, fevers, chills. She does not she has had on and off diarrhea when taking omeprazole. She had an endoscopy on January 12 which did not show any ulcers; however the patient said that they could not rule out gastroparesis. She had an Ultrasound at [place] last night to evaluate for gallstones which was negative. She then went to her PCP today in [place] and was found to have a sodium of 129 and was therefore told to come to the ED. She was here 3 weeks ago for a Right frontal lacunar stroke. She had a US of her carotids which showed moderate plaque but not critical stenosis. She had a echo done which showed moderate aortic stenosis, moderate mitral regurg and moderate tricuspid regurg. She was unable to get an MRI due to the fact that she has a pacemaker, therefore making it difficult to assess for a cerebellar stroke. In the ED today she had a CT scan of her head showed interval development of her R frontoparietal stroke indicating a subacute stroke or a chronic stroke. Past Medical/Surgical History Medical Problems: (1) CAD (coronary artery disease) (2) Elevated troponin (3) Left shoulder pain (4) Left-sided weakness (5) TIA (transient ischemic attack) Surgical Problems: (1) Hx of CABG Family History Patient reports no known family medical history. Dad- stroke Mom- TIA's Brother - Stroke Social History Smoking Status: Never Smoker Smokeless Tobacco Use: No Alcohol Use: none Drug Use: none Housing status: lives with family Occupational Status: retired Immunizations History of Influenza Vaccine: Unknown History of Tetanus Vaccine?: Unknown History of Pneumococcal: Unknown History of Hepatitis B Vaccine: Unknown Allergies Coded Allergies: Penicillins (Unverified Allergy, Intermediate, HIVES, 01/13/18) Uncoded Allergies: CONTRAST (Adverse Reaction, Intermediate, HIVES, 01/13/18) Home Medications Scheduled Apixaban (Eliquis), 2.5 MG PO BID Clopidogrel Bisulfate (Plavix), 75 MG PO QAM Ezetimibe (Zetia), 10 MG PO QPM Insulin Isophan/Regular (Humulin 70/30), 30 UNITS SC QAM Insulin Isophan/Regular (Humulin 70/30), 25 UNITS SC QPM Levothyroxine Sodium (Levothyroxine Sodium), 50 MCG PO QAM Metoclopramide Hcl (Metoclopramide Hcl), 5 MG PO QID Metoprolol Succinate (Metoprolol Succinate ER), 50 MG PO BID Omeprazole (Prilosec), 40 MG PO QAM Ramipril (Ramipril), 10 MG PO BID Simvastatin (Zocor), 80 MG PO QPM Sucralfate (Carafate), 1 GM PO QID Scheduled PRN Acetaminophen (Tylenol), 500 MG PO UD PRN for Pain or Fever Ondansetron Hcl (Zofran), 8 MG PO BID PRN for Nausea Review of Systems Constitutional: + weakness, + fatigue, No fever, No chills, No weight loss Eyes: No worsening of vision, No diplopia ENT: No hearing loss, No sore throat, No trouble swallowing Respiratory: No cough, No sputum, No shortness of breath Cardiovascular: No chest pain, No edema, No palpitations Abdomen: + nausea, + vomiting, + diarrhea, No pain, No constipation, No GI bleeding Musculoskeletal: No joint pain, No muscle pain, No swelling, No calf pain Genitourinary - Female: No dysuria, No urinary frequency Hematologic / Lymphatic: + abnormal bleeding/bruising, + clotting problems Integumentary: + rash, + itch, + new/changing skin lesions Physical Exam Vital Signs Date Time Temp Pulse Resp B/P (MAP) Pulse Ox O2 Delivery O2 Flow Rate FiO2 02/02/18 21:21 65 18 133/84 97 Room Air 02/02/18 20:15 65 02/02/18 20:05 97 Room Air 02/02/18 19:10 36.8 72 20 135/63 96 Room Air General Appearance: WD/WN, no apparent distress, + cachetic Head: normocephalic, atraumatic Eyes: PERRL ENT: hearing grossly normal, pharynx normal Neck: supple, thyroid normal, no JVD, no carotid bruits, trachea midline Respiratory/Chest: lungs clear, no respiratory distress, no accessory muscle use Cardiovascular: regular rate, rhythm (3/6 murmur with radiation the carotids), no edema, normal peripheral pulses Abdomen/GI: normal bowel sounds, soft, + tenderness (epigastric tenderness) Extremities/Musculoskelatal: normal inspection, no calf tenderness, no pedal edema Neurologic/Psych: director of managed services II-XII nml as tested, no motor/sensory deficits, alert, normal mood/affect, oriented x 3, + pertinent finding (mild residual Left lid lag from previous stroke) Skin: + pallor Diagnostics Laboratory Results Results Past 24 Hours Test 02/02/18 20:05 Range/Units White Blood Count 13.28 4.8-10.8 K/uL Red Blood Count 3.87 4.2-5.4 M/uL Hemoglobin 12.3 12.0-16.0 g/dL Hematocrit 34.9 37-47 % Mean Corpuscular Volume 90.2 80-100 fL Mean Corpuscular Hemoglobin 31.8 25-34 pg Mean Corpuscular Hemoglobin Concent 35.2 32-36 g/dl Platelet Count 288 130-400 K/uL Mean Platelet Volume 10.3 7.4-10.4 fL Neutrophils (%) (Auto) 66.8 % Lymphocytes (%) (Auto) 23.6 % Monocytes (%) (Auto) 7.4 % Eosinophils (%) (Auto) 1.3 % Basophils (%) (Auto) 0.6 % Neutrophils # (Auto) 8.87 1.4-6.5 K/uL Lymphocytes # (Auto) 3.14 1.2-3.4 K/uL Monocytes # (Auto) 0.98 0.11-0.59 K/uL Eosinophils # (Auto) 0.17 0-0.5 K/uL Basophils # (Auto) 0.08 0-0.2 K/uL RDW Standard Deviation 48.4 36.4-46.3 fL RDW Coefficient of Variation 14.7 11.5-14.5 % Immature Granulocyte % (Auto) 0.3 % Immature Granulocyte # (Auto) 0.04 0.00-0.02 K/uL Prothrombin Time 10.9 9.0-12.0 SECONDS Prothromb Time International Ratio 1.0 0.9-1.1 Activated Partial Thromboplast Time 26.8 21.0-31.0 SECONDS Partial Thromboplastin Ratio 1.0 Sodium Level 129 136-145 mmol/L Potassium Level 4.1 3.5-5.1 mmol/L Chloride Level 96 98-107 mmol/L Carbon Dioxide Level 23 21-32 mmol/L Anion Gap 10.0 3-11 mmol/L Blood Urea Nitrogen 27 7-18 mg/dl Creatinine 1.07 0.60-1.20 mg/dl Est Creatinine Clear Calc Drug Dose 34.4 ml/min Estimated GFR () 55.6 Estimated GFR (Non- 48.0 BUN/Creatinine Ratio 24.8 10-20 Random Glucose 148 70-99 mg/dl Osmolality 280 280-300 mOsm/kg Calcium Level 9.0 8.5-10.1 mg/dl Magnesium Level 2.1 1.8-2.4 mg/dl Total Bilirubin 0.7 0.2-1 mg/dl Direct Bilirubin 0.2 0-0.2 mg/dl Aspartate Amino Transf (AST/SGOT) 18 15-37 U/L Alanine Aminotransferase (ALT/SGPT) 18 12-78 U/L Alkaline Phosphatase 92 45-117 U/L Total Creatine Kinase 71 26-192 U/L Creatine Kinase MB 1.9 0.5-3.6 ng/ml Creatine Kinase MB Ratio 2.7 0-3.0 Troponin I < 0.015 0-0.045 ng/ml Total Protein 7.5 6.4-8.2 gm/dl Albumin 3.8 3.4-5.0 gm/dl Thyroid Stimulating Hormone (TSH) 1.260 0.300-4.500 uIu/ml Diagnostic Radiology CT head IMPRESSION: 1. Interval development of focal hypodensity in the periventricular white matter of the right frontoparietal region. This may represent an acute or subacute lacunar infarct. 2. Extensive chronic small vessel ischemic change. 3. Subacute or chronic right frontoparietal infarct. EKG Rate (beats per minute): 65 Rhythm: other (paced rhythm) Findings: RBBB, other (No ST elevation or depression) Impression Assessment and Plan 82 year old female with a PMH of Stroke, CABGx2, and DM presented to [facility] with persistent nausea and vomiting Persistent nausea and vomiting DDx - GERD: patient symptoms correlate with food intake and after meds, +epigastric tenderness, start PPI IV - Gastroparesis: patient with hx of DM, unable to diagnosed without specific scan, continue reglan - Cerebellar stroke: Unable to do MRI and without any dizziness. CT read showed subacute vs chronic stroke, patient on eliquis and plavix, ADRIEL tomorrow to detect possible valvular lesion, consult neurology and cardiology, start heparin drip and hold eliquis and plavix - Keep patient NPO Hyponatremia - either secondary to dehydration vs SIADH - serum osm of 280, urine osm still pending - patient clinically dehydrated, will start maintenance IVF pending urine osm results - continue to trend Paroxysmal Afib - hold metoprolol - hold plavix and eliquis - admit to tele DM - hold home insulin of 70/30 - started ISS and assess long acting needs in the AM - HbA1c was 6.0 January 12, 2018 - hold ramipril Hypothyroidism - hold meds DVT prophylaxis - heparin drip, low bolus Dispo - patient lives alone - PT/OT, will likely need placement and wont be able to live by herself DNR Attending addendum: I have physically seen this patient, have supervised the medical residents activities, and agree with the H&P unless as otherwise noted. Assessment and Plan: Subacute to chronic right frontoparietal/cerebellar stroke-- Had CTA of head neck and carotid artery ultrasound at last admission from January 13 - January 17, without any lesions noted. Therefore, patient had a CVA sometime between last hospitalization and this hospitalization. Her symptoms of dizziness, nausea and vomiting may be secondary to CVA, and or mild hyponatremia, and associated with probable viral gastroenteritis/ gastroparesis. Placed on low-level IV fluids at 60 mL's per hour. Follow serial CBC with differential, chemistry profile and magnesium levels. Paroxysmal atrial fibrillation/hypertension-- Hold metoprolol, Plavix and Eliquis. Possible ADRIEL tomorrow to assess for vegetations. Diabetes mellitus-- Hold usual home dosing of 7030. Place on Accu-Cheks before meals and at bedtime with NovoLog coverage per scale. Advanced Directives Existing Advance Directive: Yes Existing Living Will: Yes Resuscitation Status VTE Prophylaxis Will order VTE Prophylaxis: Yes
[2018-02-02] MEDS ORDERED: METOCLOPRAMIDE HCL INJ 5 MG/ML 2 ML VIAL IV. PRN (23:15)
[2018-02-02] MEDS ORDERED: MAGNESIUM HYDROXIDE SUSP 30 ML UDC PO PRN (23:15)
[2018-02-02] MEDS ORDERED: POLYETHYLENE (MIRALAX) 17 GM PACK PO PRN (23:15)
[2018-02-02] MEDS ORDERED: ALUMINUM/MAGNESIUM/SIMETH (MAALOX MAX) 30 ML UDC PO PRN (23:15)
[2018-02-02] MEDS ORDERED: ONDANSETRON INJ 2 MG/ML 2 ML VIAL IV PRN (23:15)
[2018-02-02] MEDS ORDERED: ACETAMINOPHEN 325 MG TAB PO PRN (23:15)
[2018-02-03] VITALS (8 sets, daily range): BP systolic 102–177; BP diastolic 56–68; PULSE 65; TEMP 36.3–37; O2SAT 96–99; Ht 162.6 cm; Wt 62.0 kg
[2018-02-03] MEDS ORDERED: HEPARIN 25000 UNIT/500 ML D5W ONE (00:09)
[2018-02-03] MEDS ORDERED: GLUCOSE 10 TABS/TUBE PO PRN (00:30)
[2018-02-03] MEDS ORDERED: GLUCAGON FOR INJ 1 MG VIAL SQ PRN (00:30)
[2018-02-03] MEDS ORDERED: GLUCOSE 40% GEL 15 GM TUBE PO PRN (00:30)
[2018-02-03] MEDS ORDERED: HEPARIN 25,000 UNIT/500ML D5W 500 ML IV SCH (00:30)
[2018-02-03] MEDS ORDERED: DEXTROSE 50% 50 ML SYR IV PRN (00:30)
[2018-02-03] MEDS: SODIUM CHLORIDE 0.9% 1000ML 1,000 ML IV SCH ×2 (00:45→12:01)
[2018-02-03] MEDS: PANTOprazole INJ 40 MG in SYRINGE 0 ML IV SCH ×2 (01:59→08:30)
[2018-02-03 06:36] LABS: PTT PATIENT 41.2 SECONDS (21.0-31.0)
[2018-02-03] MEDS: INSULIN ASPART 100 UNITS/ML 3 ML PEN SC SCH ×2 (07:00→11:00)
[2018-02-03] MEDS ORDERED: HEPARIN IV BOLUS 2,000 UNIT in SYRINGE 0 ML IV ONE (07:00)
--- NOTE | 2018-02-03 09:40 | Neurology Consultation ---
Neurology Consultation Date of Consultation: Feb 03, 2018. Attending Physician: Jassi Barbosa D.O. Primary Care Physician: Ofelia Barron DO Reason for Consultation: Stroke identified on CT of the head History of Present Illness Source: patient, hospital records The patient is an 82-year-old female who was admitted to [facility] last month for a right hemispheric stroke presenting with left darrell paresis. She underwent extensive stroke evaluation at that time including CT of the head, carotid duplex, echocardiography, and CT angiography of the head and neck. She was also seen by Dr. John at that time. She has a history of atrial fibrillation and cardiac pacer placement and is unable to have an MRI. Past medical history also notable for atrial fibrillation, coronary artery disease, CABG, and diabetes mellitus. She is prescribed Plavix and Eliquis. After her previous admission to the hospital she was transferred to [facility] for rehabilitation and reports that her left-sided weakness resolved. She was subsequently discharged to home but began experiencing persistent nausea and vomiting. She was found to have hyponatremia as well and was ultimately referred by her primary care physician for admission. The patient denies experiencing any new or interval neurological symptoms since her recent hospitalization for stroke. Her presenting symptoms consist of nausea, vomiting, and hyponatremia. She denies headache, weakness, sensory loss, or problems with speech, or balance. A CT of the head revealed a right frontoparietal hypodensity probably consistent with a subacute infarct. This finding was not appreciated on her previous CT of the head and considered a new or interval finding. A chronic right frontoparietal infarct was also seen. I reviewed the images as well as the radiologist's interpretation of this test. An electrocardiogram reveals a paced rhythm, 65 beats per minute. Past Medical/Surgical History Medical Problems: (1) Elevated troponin Status: Acute (2) Left shoulder pain Status: Acute (3) Left-sided weakness Status: Acute Family History Noncontributory Social History Smokeless Tobacco Use: No Drug Use: none Occupation Status: retired Allergies Coded Allergies: Penicillins (Unverified Allergy, Intermediate, HIVES, 01/13/18) Uncoded Allergies: CONTRAST (Adverse Reaction, Intermediate, HIVES, 01/13/18) Current Inpatient Medications Current Inpatient Medications Medications (Trade) Dose Ordered Sig/Irene Route Start Time Stop Time Status Last Admin Dose Admin Acetaminophen (Tylenol Tab) 650 mg Q4H PRN PO 02/02/18 23:15 03/04/18 23:14 Al Hydrox/Mg Hydrox/Simethicone (Maalox Max Susp) 15 ml Q4H PRN PO 02/02/18 23:15 03/04/18 23:14 Magnesium Hydroxide (Milk Of Magnesia Susp) 30 ml Q12H PRN PO 02/02/18 23:15 03/04/18 23:14 Ondansetron HCl (Zofran Inj) 4 mg Q6H PRN IV 02/02/18 23:15 03/04/18 23:14 Polyethylene (Miralax Powder Packet) 17 gm DAILY PRN PO 02/02/18 23:15 03/04/18 23:14 Metoclopramide HCl (Reglan Inj) 5 mg Q6H PRN IV. 02/02/18 23:15 03/04/18 23:14 Pantoprazole Sodium 40 mg/ Syringe 10 ml @ 5 mls/min DAILY@09,21 IV 02/02/18 23:15 03/04/18 23:14 02/03/18 08:30 5 MLS/MIN Sodium Chloride 1,000 ml @ 100 mls/hr Q10H IV 02/03/18 01:00 03/05/18 00:59 02/03/18 00:45 100 MLS/HR Insulin Aspart (novoLOG ASPART) SLIDING SCALE G... ACHS SC 02/03/18 07:00 03/05/18 06:59 Heparin Sodium/ Dextrose 500 ml @ 15 mls/hr Q24H IV 02/03/18 00:30 03/05/18 00:29 02/03/18 00:24 14 MLS/HR Glucose (Glucose 40% Gel) 15-30 GRAMS 15 GRAMS... UD PRN PO 02/03/18 00:30 03/05/18 00:29 Glucose (Glucose Chew Tab) 4-8 Tablets 4 Tabl... UD PRN PO 02/03/18 00:30 03/05/18 00:29 Dextrose (Dextrose 50% 50ML Syringe) 25-50ML OF 50% DW IV FOR... UD PRN IV 02/03/18 00:30 03/05/18 00:29 Glucagon (Glucagon Inj) 1 mg UD PRN SQ 02/03/18 00:30 03/05/18 00:29 Review of Systems Constitutional: No fever chills Eyes: No vision loss or diplopia ENT: No vertigo or hearing loss Cardiovascular: No chest pain or palpitations Respiratory: No coughing or shortness of breath Gastrointestinal: As per history of present illness Neurological: As per history of present illness A full 10 point review of systems was obtained from this patient with pertinent positives and negatives described in the history of present illness and otherwise listed above. All remaining systems were reviewed and are negative. Physical Exam Vital Signs (Past 24 Hrs): Date Time Temp Pulse Resp B/P (MAP) Pulse Ox O2 Delivery O2 Flow Rate FiO2 02/03/18 07:07 37.0 65 20 141/58 (85) 96 Room Air 02/03/18 04:00 97 Room Air 02/03/18 04:00 36.8 65 17 177/68 (104) 97 Room Air 02/03/18 00:30 37.0 65 18 170/64 98 Room Air 02/03/18 00:18 65 18 154/59 98 Room Air 02/02/18 22:52 65 18 169/60 97 Room Air 02/02/18 21:21 65 18 133/84 97 Room Air 02/02/18 20:15 65 02/02/18 20:05 97 Room Air 02/02/18 19:10 36.8 72 20 135/63 96 Room Air The patient is a well-developed, elderly female. She is lying comfortably in bed and in no acute distress. She is alert and fully oriented. Recent and remote memory intact. Attention and concentration normal. Patient exhibits a normal spontaneous speech pattern as well as an age-appropriate fund of knowledge a normal vocabulary. Visual bradshaw full to confrontation. Visual acuity normal. Pupils equal round react to light and accommodation. Eye movements normal. No nystagmus. Facial sensation intact. There is no facial droop or weakness. Hearing intact. Palate elevates to midline. Shoulder shrug intact. Tongue protrudes to midline. Sensation intact in all 4 limbs. Deep tendon reflexes intact and symmetrical for the arms and legs. There is no dysdiadochokinesia or dysmetria of [id number] or heel to urbina bilaterally. Ophthalmoscopic examination reveals normal-appearing optic discs and posterior segments. No papilledema or hemorrhages. Carotid pulses normal bilaterally, no bruits to auscultation. Gait and station not tested due to safety concerns. Patient exhibits normal muscle strength and tone for all 4 limbs. No atrophy. No abnormal movements observed. Laboratory Results Past 24 Hours: 02/02/18 20:05 Red Blood Count 3.87, Mean Corpuscular Volume 90.2, Mean Corpuscular Hemoglobin 31.8, Mean Corpuscular Hemoglobin Concent 35.2, Mean Platelet Volume 10.3, Neutrophils (%) (Auto) 66.8, Lymphocytes (%) (Auto) 23.6, Monocytes (%) (Auto) 7.4, Eosinophils (%) (Auto) 1.3, Basophils (%) (Auto) 0.6, Neutrophils # (Auto) 8.87, Lymphocytes # (Auto) 3.14, Monocytes # (Auto) 0.98, Eosinophils # (Auto) 0.17, Basophils # (Auto) 0.08 02/02/18 20:05 Test 02/02/18 20:05 02/02/18 22:55 02/03/18 06:18 02/03/18 06:52 White Blood Count 13.28 K/uL (4.8-10.8) Red Blood Count 3.87 M/uL (4.2-5.4) Hemoglobin 12.3 g/dL (12.0-16.0) Hematocrit 34.9 % (37-47) Mean Corpuscular Volume 90.2 fL (80-100) Mean Corpuscular Hemoglobin 31.8 pg (25-34) Mean Corpuscular Hemoglobin Concent 35.2 g/dl (32-36) Platelet Count 288 K/uL (130-400) Mean Platelet Volume 10.3 fL (7.4-10.4) Neutrophils (%) (Auto) 66.8 % Lymphocytes (%) (Auto) 23.6 % Monocytes (%) (Auto) 7.4 % Eosinophils (%) (Auto) 1.3 % Basophils (%) (Auto) 0.6 % Neutrophils # (Auto) 8.87 K/uL (1.4-6.5) Lymphocytes # (Auto) 3.14 K/uL (1.2-3.4) Monocytes # (Auto) 0.98 K/uL (0.11-0.59) Eosinophils # (Auto) 0.17 K/uL (0-0.5) Basophils # (Auto) 0.08 K/uL (0-0.2) RDW Standard Deviation 48.4 fL (36.4-46.3) RDW Coefficient of Variation 14.7 % (11.5-14.5) Immature Granulocyte % (Auto) 0.3 % Immature Granulocyte # (Auto) 0.04 K/uL (0.00-0.02) Prothrombin Time 10.9 SECONDS (9.0-12.0) Prothromb Time International Ratio 1.0 (0.9-1.1) Anion Gap 10.0 mmol/L (3-11) Est Creatinine Clear Calc Drug Dose 34.4 ml/min Estimated GFR () 55.6 Estimated GFR (Non- 48.0 BUN/Creatinine Ratio 24.8 (10-20) Osmolality 280 mOsm/kg (280-300) Calcium Level 9.0 mg/dl (8.5-10.1) Magnesium Level 2.1 mg/dl (1.8-2.4) Total Bilirubin 0.7 mg/dl (0.2-1) Direct Bilirubin 0.2 mg/dl (0-0.2) Aspartate Amino Transf (AST/SGOT) 18 U/L (15-37) Alanine Aminotransferase (ALT/SGPT) 18 U/L (12-78) Alkaline Phosphatase 92 U/L (45-117) Total Creatine Kinase 71 U/L (26-192) Creatine Kinase MB 1.9 ng/ml (0.5-3.6) Creatine Kinase MB Ratio 2.7 (0-3.0) Troponin I < 0.015 ng/ml (0-0.045) Total Protein 7.5 gm/dl (6.4-8.2) Albumin 3.8 gm/dl (3.4-5.0) Thyroid Stimulating Hormone (TSH) 1.260 uIu/ml (0.300-4.500) Activated Partial Thromboplast Time 41.2 SECONDS (21.0-31.0) Partial Thromboplastin Ratio 1.6 Bedside Glucose 81 mg/dl (70-90) Date/Time Source Procedure Growth Status 02/02/18 22:55 Stool C.difficile Toxin B Gene (PCR) - Final No C. difficile toxin B gene detected Complete Impression The recently observed subacute ischemic infarct within the right frontal lobe probably occurred during her last admission to the hospital. She had presented with a left darrell paresis at that time that subsequently resolved. She has not experienced a recurrence of stroke-like symptoms. A brain MRI could not be completed as she has a cardiac pacer. Stroke etiology likely atrial fibrillation. Plan Continue Eliquis and Plavix. Additional neurological testing is not needed at this time. Please contact me if I may be of further assistance.
[2018-02-03 11:30] LABS: BASO % 0.5 %; BASO ABS # 0.07 K/uL (0-0.2); EOS ABS # 0.27 K/uL (0-0.5); HEMATOCRIT 30.3 % (37-47); HEMOGLOBIN 10.7 g/dL (12.0-16.0); IG# 0.05 K/uL (0.00-0.02); LYMPH % 19.1 %; LYMPH ABS # 2.59 K/uL (1.2-3.4); MEAN CELL VOLUME 90.2 fL (80-100); MEAN CORPUSCULAR HEMOGLOBIN 31.8 pg (25-34); MEAN CORPUSCULAR HGB CONC 35.3 g/dl (32-36); MEAN PLATELET VOLUME 10.2 fL (7.4-10.4); MONO % 6.6 %; NEUT % 71.4 %; NEUT ABS # 9.67 K/uL (1.4-6.5); PLATELET COUNT 239 K/uL (130-400); RED CELL DISTRIBUTION WIDTH CV 14.9 % (11.5-14.5); RED CELL DISTRIBUTION WIDTH SD 49.2 fL (36.4-46.3); WHITE BLOOD COUNT 13.55 K/uL (4.8-10.8)
[2018-02-03 12:07] LABS: CALCIUM 8.6 mg/dl (8.5-10.1); CREATININE 0.74 mg/dl (0.60-1.20)
--- NOTE | 2018-02-03 13:05 | Family Medicine Progress Note ---
Progress Note Date of Service Feb 03, 2018.
--- NOTE | 2018-02-03 13:31 | CARDIOLOGY PROGRESS NOTE ---
DATE: 02/03/2018 SUBJECTIVE: Ms. Mitchell is resting comfortably in bed without complaints of chest pain or dyspnea. She was admitted because of intractable nausea and vomiting along with hyponatremia. There is incidental finding of new CVA on CT scan raising possible need for transesophageal echocardiogram. OBJECTIVE: VITAL SIGNS: Blood pressure was 102/56 with a regular pulse of 56. Respiratory rate is 20. The patient is afebrile at 36.9 degrees Celsius. Saturation is 99% on room air. NECK: Supple with full carotid upstrokes. There is a quiet transmitted murmur bilaterally. No jugular venous distention. CARDIOVASCULAR: Reveals a regular rhythm with a 2/6 crescendo decrescendo systolic murmur heard loudest at the base. S2 is audible at the apex. LUNGS: Clear without rales, rhonchi, or wheeze. ABDOMEN: Soft without bruits. EXTREMITIES: Show intact radial pulse bilaterally. There is no peripheral edema. DATA: CBC with hemoglobin of 10.7, hematocrit 38.3, white count 13.5, and platelet count 239,000. Electrolytes note a sodium of 129, potassium 4.1, chloride 96, bicarbonate 23, BUN 27, creatinine 1.07, glucose 148. TSH level is normal at 1.26. Troponin is undetectable less than 0.015. MEDICATIONS: 1. Eliquis 2.5 mg daily -- on hold. 2. Plavix 75 mg per day. 3. Toprol-XL 50 mg b.i.d. 4. Simvastatin 80 mg at bedtime. 5. Heparin drip. IMPRESSION AND PLAN: 1. Paroxysmal atrial fibrillation -- currently atrial and ventricularly paced. No evidence of atrial fibrillation on the monitor. However, this was likely responsible for her transient ischemic attack earlier this month. Suspect this is the etiology of subsequent cerebrovascular accidents. Would restart Eliquis when able. No indication for transesophageal echocardiogram at this time. 2. Coronary artery disease -- status post coronary artery bypass grafting with redo procedure. Details unknown. 3. History of intracoronary stenting -- details unknown. 4. DDD pacemaker -- placed in 1998 with a generator change in July 2016. [employer] device. 5. Recent cerebrovascular accident -- no indication for transesophageal echocardiogram at this time. 6. Hypertension -- with left ventricular hypertrophy. 7. Moderate aortic stenosis. 8. Mild mitral regurgitation. 9. Status post left carotid endarterectomy. 10. Diabetes mellitus. 11. Hypothyroidism.
[2018-02-03 14:39] LABS: PTT PATIENT 73.9 SECONDS (21.0-31.0)
[2018-02-03] MEDS ORDERED: ONDA8TAB12 PO (15:07)
--- NOTE | 2018-02-03 15:22 | Discharge Instructions ---
Discharge Instructions Date of Service Feb 03, 2018. Admission Reason for Admission: Nausea And Vomiting Discharge Discharge Diagnosis / Problem: Nausea/Vomiting, Diarrhea Discharge Goals Goal(s): Decrease discomfort, Improve function, Increase independence, Improve disease control, Improve nutritional status, Learn about illness, Diagnostic testing, Therapeutic intervention, Screening, Prevent Disease Progression, Specific goals Activity Recommendations Activity Limitations: resume your previous activity . Instructions / Follow-Up Instructions / Follow-Up You were admitted with nausea/vomiting. Out of caution, you were worked up for possible new Stroke. Based on imaging and after consultation with Neurology, it was determined that there was no evidence of a new Stroke. Given your reported diarrhea in addition , your symptoms are most likely due to a viral gastroenteritis. -You will be provided with anti-nausea medication prescription ( Zofran) in the event that your symptoms return. - Please maintain adequate hydration - Eat bland foods. When you feel hungry, begin eating soft, bland foods. Examples are bananas, clear soup, potatoes, and applesauce. Do not have dairy products, alcohol, sugary drinks, or drinks with caffeine until you feel better. Rest as much as possible. Slowly start to do more each day when you begin to feel better. - If you experience worsening pain, fever, chills, please call your primary care provider or if you are concerned, return to Emergency department for evaluation Seek care immediately if: -You see blood in your diarrhea. -You cannot stop vomiting. -You have not urinated for 12 hours. -You feel like you are going to faint. Contact your healthcare provider if: -You have a fever. -You continue to vomit or have diarrhea, even after treatment. -You see worms in your diarrhea. -Your mouth or eyes are dry. You are not urinating as much or as often. -You have questions or concerns about your condition or care. Current Hospital Diet Patient's current hospital diet: AHA Diet (Heart Healthy) Discharge Diet Recommended Diet: Regular Diet Pending Studies Studies pending at discharge: yes List of pending studies: Norovirus, Giardia testing, Stool cultures Laboratory Results Hemoglobin A1c Test 01/13/18 15:53 Range/Units Estimated Average Glucose 126 mg/dl Hemoglobin A1c 6.0 H 4.5-5.6 % Lipid Panel Test 01/15/18 05:11 Range/Units Triglycerides Level 157 H 0-150 mg/dl Cholesterol Level 117 0-200 mg/dl HDL Cholesterol 42 mg/dl Cholesterol/HDL Ratio 2.8 LDL Cholesterol, Calculated 44 mg/dl Medical Emergencies . Who to Call and When: Medical Emergencies: If at any time you feel your situation is an emergency, please call 911 immediately. . Non-Emergent Contact Non-Emergency issues call your: Primary Care Provider Call Non-Emergent contact if: you have a fever, your pain is not controlled, your pain is worsening, your pain is unusual for you, your pain is concerning you, you have any medication questions . . "Provider Documentation" section prepared by Selvin Grant. .
--- NOTE | 2018-02-03 17:37 | Discharge Summary ---
Discharge Summary Date of Service Feb 03, 2018. Discharge Summary Admission Date: Feb 02, 2018 at 23:21 Discharge Date: Feb 03, 2018 Discharge Disposition: Home Principal Diagnosis: gastroenteritis Procedures: HEAD WITHOUT CONTRAST (CT) CLINICAL HISTORY: 82 years-old Female presenting with Pt c/o N V. TECHNIQUE: Multidetector CT imaging of the head was performed without the use of intravenous contrast. IV contrast: None. A dose lowering technique was used consistent with the principles of ALARA (as low as reasonably achievable). COMPARISON: 01/13/2018 CT DOSE (mGy.cm): The estimated cumulative dose is 1053.79. FINDINGS: Mechanical Cad Drafter topogram: Partially visualized pacer, median sternotomy wires, and mediastinal surgical clips. Proportional ventricular and sulcal prominence, likely age-related parenchymal volume loss. Periventricular and subcortical white matter hypoattenuation, nonspecific but likely indicative of chronic small vessel ischemic change. Focal hypodensity involving overlying andre matter in the right frontal region is unchanged, likely interval development of focal hypodensity in the periventricular white matter of the right frontoparietal region (series 2 image 18), likely subacute or chronic infarct. No mass effect or midline shift. No hemorrhage or acute territorial infarct. No extra-axial fluid collection. Paranasal sinuses and mastoid air cells clear. Calvarium intact. Postsurgical changes of the globes. IMPRESSION: 1. Interval development of focal hypodensity in the periventricular white matter of the right frontoparietal region. This may represent an acute or subacute lacunar infarct. 2. Extensive chronic small vessel ischemic change. 3. Subacute or chronic right frontoparietal infarct. Electronically signed by: Adrian Rocha M.D. 02/02/2018 8:58 PM Dictated Date/Time: 02/02/2018 8:54 PM ABD/PELVIS NO IV OR ORAL CONT CLINICAL HISTORY: 82 years-old Female presenting with Pt c/o abd pain, dehydration, nausea and vomiting. TECHNIQUE: Multidetector CT of the abdomen and pelvis was performed without the use of intravenous contrast. IV contrast: None. A dose lowering technique was used consistent with the principles of ALARA (as low as reasonably achievable). COMPARISON: None. CT DOSE (mGy.cm): The estimated cumulative dose is 1053.79 mGy.cm. FINDINGS: Mechanical Cad Drafter topogram: Partially visualized pacer wires. Median sternotomy wires and mediastinal surgical clips. Lung bases: Lungs and pleural spaces clear. Persistent visualized pacer wires to the right atrium and right ventricular apex. Median sternotomy wires partially visualized with suspected coronary artery bypass. Mitral annular calcification. Normal heart size. No pericardial or pleural effusion. Liver: Normal morphology. Normal density. Biliary: No gross biliary ductal dilatation allowing for noncontrast technique. Normal gallbladder. Pancreas: Normal noncontrast appearance. Spleen: Normal noncontrast appearance. Adrenal glands: 1.7 cm nodule in the medial limb of the left adrenal gland indeterminate by density. Right adrenal gland normal. Kidneys and ureters: Prominent renal vascular calcification. No convincing evidence of nephrolithiasis. Normal noncontrast appearance of the renal parenchyma. No hydronephrosis. Ureters normal. Bladder: Incompletely evaluated secondary to underdistention. Pelvic organs: Uterus surgically absent. No adnexal masses. Bowel: Fluid in the colon suggests a diarrheal state. Scattered diverticula in the colon. No pericolonic fat infiltration. The cecum is located in the right pelvis and may be distended with fluid though an underlying soft tissue mass is difficult to exclude (series 5 image 341). The appendix is not visualized though no inflammatory changes evident in the right lower quadrant. Small hiatal hernia. No bowel obstruction. Peritoneal cavity: No free fluid or intraperitoneal gas. Lymph nodes: No gross lymphadenopathy allowing for noncontrast technique. Vasculature: Severe calcified atherosclerotic plaque evident throughout. Normal caliber abdominal aorta. Displacement of intimal calcifications in the infrarenal aorta may indicate chronic short segment dissections. Abdominal wall: Postsurgical changes of the ventral midline infraumbilical abdominal wall. Slight asymmetry of breast parenchyma. This is nonspecific. Small fat-containing of the hernia. Musculoskeletal: Degenerative changes of the spine. Degenerative changes of the hips, right greater than left. Degenerative changes of the sacroiliac joints. IMPRESSION: 1. Fluid throughout the colon suggests a diarrheal state. No significant inflammatory change to suggest a severe colitis. No bowel obstruction. 2. The cecum may be slightly distended and contain fluid though an underlying soft tissue mass is difficult to exclude. Gastroenterology consultation for nonurgent outpatient colonoscopy could be considered to evaluate this region versus follow-up contrast enhanced CT. 3. Indeterminate 1.7 cm nodule in the left adrenal gland. This could be further evaluated if clinically indicated. 4. Significant atherosclerosis. Electronically signed by: Adrian Rocha M.D. 02/02/2018 9:07 PM Dictated Date/Time: 02/02/2018 9:00 PM CHEST ONE VIEW PORTABLE CLINICAL HISTORY: 82 years-old Female presenting with Pt c/o N V. TECHNIQUE: Portable upright AP view of the chest was obtained. COMPARISON: 01/13/2018. FINDINGS: Right subclavian pacer with leads to the right atrium and right ventricular apex in place. Median sternotomy wires and mediastinal surgical clips unchanged. Atherosclerosis of aortic arch. Cardiac silhouette mildly enlarged, unchanged. Coronary artery stents are coronary artery calcification noted. No focal opacity. No large effusion or pneumothorax. Multiple prominent skin folds project over the right hemithorax. Osseous structures normal. Upper abdomen normal. IMPRESSION: 1. Cardiomegaly. No other convincing evidence of acute cardiopulmonary disease. Electronically signed by: Adrian Rocha M.D. 02/02/2018 9:27 PM Dictated Date/Time: 02/02/2018 9:26 PM Last 24 Hours Test 02/02/18 20:05 02/02/18 22:55 02/03/18 06:18 02/03/18 06:52 White Blood Count 13.28 K/uL Red Blood Count 3.87 M/uL Hemoglobin 12.3 g/dL Hematocrit 34.9 % Mean Corpuscular Volume 90.2 fL Mean Corpuscular Hemoglobin 31.8 pg Mean Corpuscular Hemoglobin Concent 35.2 g/dl Platelet Count 288 K/uL Mean Platelet Volume 10.3 fL Neutrophils (%) (Auto) 66.8 % Lymphocytes (%) (Auto) 23.6 % Monocytes (%) (Auto) 7.4 % Eosinophils (%) (Auto) 1.3 % Basophils (%) (Auto) 0.6 % Neutrophils # (Auto) 8.87 K/uL Lymphocytes # (Auto) 3.14 K/uL Monocytes # (Auto) 0.98 K/uL Eosinophils # (Auto) 0.17 K/uL Basophils # (Auto) 0.08 K/uL RDW Standard Deviation 48.4 fL RDW Coefficient of Variation 14.7 % Immature Granulocyte % (Auto) 0.3 % Immature Granulocyte # (Auto) 0.04 K/uL Prothrombin Time 10.9 SECONDS Prothromb Time International Ratio 1.0 Activated Partial Thromboplast Time 26.8 SECONDS 41.2 SECONDS Partial Thromboplastin Ratio 1.0 1.6 Sodium Level 129 mmol/L Potassium Level 4.1 mmol/L Chloride Level 96 mmol/L Carbon Dioxide Level 23 mmol/L Anion Gap 10.0 mmol/L Blood Urea Nitrogen 27 mg/dl Creatinine 1.07 mg/dl Est Creatinine Clear Calc Drug Dose 34.4 ml/min Estimated GFR () 55.6 Estimated GFR (Non- 48.0 BUN/Creatinine Ratio 24.8 Random Glucose 148 mg/dl Osmolality 280 mOsm/kg Calcium Level 9.0 mg/dl Magnesium Level 2.1 mg/dl Total Bilirubin 0.7 mg/dl Direct Bilirubin 0.2 mg/dl Aspartate Amino Transf (AST/SGOT) 18 U/L Alanine Aminotransferase (ALT/SGPT) 18 U/L Alkaline Phosphatase 92 U/L Total Creatine Kinase 71 U/L Creatine Kinase MB 1.9 ng/ml Creatine Kinase MB Ratio 2.7 Troponin I < 0.015 ng/ml Total Protein 7.5 gm/dl Albumin 3.8 gm/dl Thyroid Stimulating Hormone (TSH) 1.260 uIu/ml Bedside Glucose 81 mg/dl Test 02/03/18 11:01 02/03/18 11:15 02/03/18 13:37 02/03/18 16:05 Bedside Glucose 99 mg/dl 134 mg/dl White Blood Count 13.55 K/uL Red Blood Count 3.36 M/uL Hemoglobin 10.7 g/dL Hematocrit 30.3 % Mean Corpuscular Volume 90.2 fL Mean Corpuscular Hemoglobin 31.8 pg Mean Corpuscular Hemoglobin Concent 35.3 g/dl Platelet Count 239 K/uL Mean Platelet Volume 10.2 fL Neutrophils (%) (Auto) 71.4 % Lymphocytes (%) (Auto) 19.1 % Monocytes (%) (Auto) 6.6 % Eosinophils (%) (Auto) 2.0 % Basophils (%) (Auto) 0.5 % Neutrophils # (Auto) 9.67 K/uL Lymphocytes # (Auto) 2.59 K/uL Monocytes # (Auto) 0.90 K/uL Eosinophils # (Auto) 0.27 K/uL Basophils # (Auto) 0.07 K/uL RDW Standard Deviation 49.2 fL RDW Coefficient of Variation 14.9 % Immature Granulocyte % (Auto) 0.4 % Immature Granulocyte # (Auto) 0.05 K/uL Sodium Level 135 mmol/L Potassium Level 4.0 mmol/L Chloride Level 105 mmol/L Carbon Dioxide Level 22 mmol/L Anion Gap 7.0 mmol/L Blood Urea Nitrogen 17 mg/dl Creatinine 0.74 mg/dl Est Creatinine Clear Calc Drug Dose 49.8 ml/min Estimated GFR () 86.8 Estimated GFR (Non- 74.9 BUN/Creatinine Ratio 23.0 Random Glucose 98 mg/dl Calcium Level 8.6 mg/dl Activated Partial Thromboplast Time 73.9 SECONDS Partial Thromboplastin Ratio 2.8 Consultations: neurology: Impression The recently observed subacute ischemic infarct within the right frontal lobe probably occurred during her last admission to the hospital. She had presented with a left darrell paresis at that time that subsequently resolved. She has not experienced a recurrence of stroke-like symptoms. A brain MRI could not be completed as she has a cardiac pacer. Stroke etiology likely atrial fibrillation. Plan Continue Eliquis and Plavix. Additional neurological testing is not needed at this time. Please contact me if I may be of further assistance. <Electronically signed by Connor Leon MD> cardiology: IMPRESSION AND PLAN: 1. Paroxysmal atrial fibrillation -- currently atrial and ventricularly paced. No evidence of atrial fibrillation on the monitor. However, this was likely responsible for her transient ischemic attack earlier this month. Suspect this is the etiology of subsequent cerebrovascular accidents. Would restart Eliquis when able. No indication for transesophageal echocardiogram at this time. 2. Coronary artery disease -- status post coronary artery bypass grafting with redo procedure. Details unknown. 3. History of intracoronary stenting -- details unknown. 4. DDD pacemaker -- placed in 1998 with a generator change in July 2016. [employer] device. 5. Recent cerebrovascular accident -- no indication for transesophageal echocardiogram at this time. 6. Hypertension -- with left ventricular hypertrophy. 7. Moderate aortic stenosis. 8. Mild mitral regurgitation. 9. Status post left carotid endarterectomy. 10. Diabetes mellitus. 11. Hypothyroidism. Medication Reconciliation New Medications: Ondansetron Hcl (Zofran) 8 Mg Tab 8 MG PO BID PRN for Nausea, #14 TAB Continued Medications: Acetaminophen (Tylenol) 500 Mg Tab 500 MG PO UD PRN for Pain or Fever TAKE PER PACKAGE DIRECTIONS Apixaban (Eliquis) 2.5 Mg Tab 2.5 MG PO BID, TAB Clopidogrel Bisulfate (Plavix) 75 Mg Tab 75 MG PO QAM Ezetimibe (Zetia) 10 Mg Tab 10 MG PO QPM Insulin Isophan/Regular (Humulin 70/30) Susp 30 UNITS SC QAM, VIAL Insulin Isophan/Regular (Humulin 70/30) Susp 25 UNITS SC QPM, VIAL Levothyroxine Sodium (Levothyroxine Sodium) 50 Mcg Tab 50 MCG PO QAM Metoclopramide Hcl (Metoclopramide Hcl) 5 Mg Tab 5 MG PO QID Metoprolol Succinate (Metoprolol Succinate ER) 100 Mg Tabcr 50 MG PO BID Omeprazole (Prilosec) 40 Mg Cap 40 MG PO QAM, CAP Ramipril (Ramipril) 10 Mg Cap 10 MG PO BID Simvastatin (Zocor) 80 Mg Tab 80 MG PO QPM Sucralfate (Carafate) 1 Gm Tab 1 GM PO QID for 10 Days, #40 TAB PRESCRIBED 02/02/2018, TAKE DIRECTED FOR 10 DAYS Discharge Exam Physical Exam: General Appearance: no apparent distress Eyes: EOMI ENT: hearing grossly normal Neck: trachea midline Respiratory/Chest: no respiratory distress, no accessory muscle use Extremities: normal inspection Neurologic/Psychiatric: auto body straightener II-XII nml as tested, alert, normal mood/affect , + pertinent finding (no focal neuro deficits) Skin: normal color, warm/dry Hospital Course admitted with intractable nausea and vomiting -initial ddx given recent stroke concerned new cerebrovascular pathology - extensive w/u - but fortunately negative -pt then noted to have diarrhea - making sx much more c/w gastroenteritis -she then noted that MANY people in her building have been coming down with GI illness including nausea/vomiting and diarrhea this week -advanced diet, ate great, really wants to go home -- definitely appears safe /stable for home -PCP next week Total Time Spent: Less than 30 minutes This includes examination of the patient, discharge planning, medication reconciliation, and communication with other providers. Discharge Instructions Please refer to the electronic Patient Visit Report (Discharge Instructions) for additional information. Additional Copies To Ofelia Barron,
[2018-02-03] MEDS ORDERED: SIMVASTATIN 80 MG TAB PO SCH (21:00)
[2018-02-03] MEDS ORDERED: APIXABAN 2.5 MG TAB PO SCH (21:00)
[2018-02-03] MEDS ORDERED: METOPROLOL SUCC 50MG EXT REL TAB PO SCH (21:00)
[2018-02-04] MEDS ORDERED: LEVOTHYROXINE 50 MCG TAB PO SCH (06:00)
[2018-02-04] MEDS ORDERED: CLOPIDOGREL BISULFATE 75 MG TAB PO SCH (09:00)
== END 2018-02-03 17:00 | disposition home health service (06) | DRG 392 ==
LOC: C.EDB 19:08 → C.2T 23:21 → ENRESERV 23:35
PROVIDERS: ADMIT Hospitalist; ATTEND Family Medicine
DX: K52.9 Noninfective gastroenteritis and colitis, unspecified (principal); E87.1 Hypo-osmolality and hyponatremia; E86.0 Dehydration; I48.0 Paroxysmal atrial fibrillation; K21.9 Gastro-esophageal reflux disease without esophagitis; I69.398 Other sequelae of cerebral infarction; H02.536 Eyelid retraction left eye, unspecified eyelid; I25.10 Atherosclerotic heart disease of native coronary artery without angina pectoris; I25.2 Old myocardial infarction; E78.5 Hyperlipidemia, unspecified; E11.9 Type 2 diabetes mellitus without complications; E03.9 Hypothyroidism, unspecified; Z79.01 Long term (current) use of anticoagulants; Z79.02 Long term (current) use of antithrombotics/antiplatelets; Z79.4 Long term (current) use of insulin; Z79.899 Other long term (current) drug therapy; Z95.0 Presence of cardiac pacemaker; Z95.1 Presence of aortocoronary bypass graft; Z88.0 Allergy status to penicillin; Z91.041 Radiographic dye allergy status; Z82.3 Family history of stroke

== ENCOUNTER → 2018-02-02 | Outpatient (CLI) | payer BC, OTHER ==
[~2018-02-02] MED LIST changes: +ACET-1256 PO; +APIX1TAB PO; +ASPI1CHW12 PO; +CLOP1TAB54 PO; +ELQ25 PO; +EZET10TA63 PO; +INSU1INJ SC; +LEVO50TA6 PO; +METO100T44 PO; +METO5TAB2 PO; +OMEP40CA41 PO; +ONDA8TAB12 PO; +RAMI10CA PO; +SIMV80TA2 PO; -SODIUM CHLORIDE 0.9% 1000ML 1,000 ML IV SCH; +SUCR1TAB29 PO; +TPRSR/100 PO
[2018-02-02 17:16] LABS: BLOOD UREA NITROGEN 25 mg/dl (7-18); CALCIUM 9.3 mg/dl (8.5-10.1); CARBON DIOXIDE 25 mmol/L (21-32); CREATININE 1.08 mg/dl (0.60-1.20); GLUCOSE 211 mg/dl (70-99); POTASSIUM 4.5 mmol/L (3.5-5.1); SODIUM 130 mmol/L (136-145)
== END | disposition home or self-care (01) ==
LOC: C.LABPBG 10:58
PROVIDERS: ATTEND Physician Assistant
DX: R11.2 Nausea with vomiting, unspecified (principal)

== ENCOUNTER → 2018-06-07 | Outpatient (CLI) | payer BC ==
[~2018-06-07] MED LIST changes: +APIX1TAB PO; -ASPI1CHW12 PO; -ELQ25 PO; -METO100T44 PO; +METO5TAB2 PO; +OMEP40CA41 PO; +SUCR1TAB29 PO; +TPRSR/100 PO
[2018-06-07 12:21] LABS: HEMATOCRIT 31.2 % (37-47); HEMOGLOBIN 9.8 g/dL (12.0-16.0); MEAN CORPUSCULAR HEMOGLOBIN 28.6 pg (25-34); MEAN CORPUSCULAR HGB CONC 31.4 g/dl (32-36); MEAN PLATELET VOLUME 11.4 fL (7.4-10.4); PLATELET COUNT 324 K/uL (130-400); RED CELL DISTRIBUTION WIDTH CV 15.5 % (11.5-14.5); RED CELL DISTRIBUTION WIDTH SD 51.6 fL (36.4-46.3); WHITE BLOOD COUNT 9.12 K/uL (4.8-10.8)
[2018-06-07 13:07] LABS: ALBUMIN 3.8 gm/dl (3.4-5.0); ALKALINE PHOSPHATASE 108 U/L (45-117); ALT/SGPT 14 U/L (12-78); AST/SGOT 16 U/L (15-37); BLOOD UREA NITROGEN 22 mg/dl (7-18); CALCIUM 8.9 mg/dl (8.5-10.1); CARBON DIOXIDE 27 mmol/L (21-32); CHOLESTEROL 118 mg/dl (0-200); CREATININE 0.75 mg/dl (0.60-1.20); GLUCOSE,FASTING 106 mg/dl (70-99); LDL CHOLESTEROL (DIRECT) 64 mg/dl; POTASSIUM 3.9 mmol/L (3.5-5.1); SODIUM 135 mmol/L (136-145); TOTAL PROTEIN 7.4 gm/dl (6.4-8.2)
== END | disposition home or self-care (01) ==
LOC: C.LABPBG 08:06
PROVIDERS: ATTEND Internal Medicine Cardiovascular Disease
DX: I10 Essential (primary) hypertension (principal); Z79.899 Other long term (current) drug therapy; Z98.61 Coronary angioplasty status; I25.10 Atherosclerotic heart disease of native coronary artery without angina pectoris; Z95.0 Presence of cardiac pacemaker

== ENCOUNTER 2022-03-10 01:21 | Inpatient (IN) ==
[2022-03-10 01:49] LABS: Basophils # (auto) 0.04 K/uL (0-0.2); Basophils % (auto) 0.3 %; Eosinophils # (auto) 0.18 K/uL (0-0.5); Eosinophils % (auto) 1.4 %; Hematocrit (blood only) 35.4 % (37-47); Immature Granulocytes # (auto) 0.16 K/uL (0.00-0.02); Immature Granulocytes % (auto) 1.3 %; Lymphocytes # (auto) 1.67 K/uL (1.2-3.4); Lymphocytes % (auto) 13.3 %; Mean Corpuscular Hemoglobin 31.3 pg (25-34); Mean Corpuscular Hgb Conc 33.9 g/dL (32-36); Mean Corpuscular Volume 92.2 fL (80-100); Mean Platelet Volume 10.6 fL (7.4-10.4); Monocytes # (auto) 0.75 K/uL (0.11-0.59); Neutrophils # (auto) 9.77 K/uL (1.4-6.5); Neutrophils % (auto) 77.7 %; Platelet Count 201 K/uL (130-400); RDW Coefficient of Variation 16.6 % (11.5-14.5); RDW Standard Deviation 56.2 fL (36.4-46.3); Red Blood Count 3.84 M/uL (4.2-5.4); White Blood Count 12.57 K/uL (4.8-10.8)
[2022-03-10 02:25] LABS: Troponin I High Sensitivity 9.7 pg/ml (0-14)
[2022-03-10 02:30] LABS: Albumin Globulin Ratio 1.6 (0.9-2); Albumin Level 4.4 gm/dl (3.4-5.0); BUN Creatinine Ratio 16.1 (10-20); Bilirubin,Total 0.4 mg/dl (0.2-1.0); Calcium 9.2 mg/dl (8.5-10.1); Creatinine Clr Calc Pharmacy 23.4 ml/min; Est GFR (African American) 37.8 ml/min; Est GFR (Non-African American) 32.6 ml/min; Globulin 2.7 gm/dl (2.5-4.0); Magnesium 1.8 mg/dl (1.7-2.4); Potassium 4.5 mmol/L (3.5-5.1); Total Protein 7.1 gm/dl (6.0-8.3)
[2022-03-10] MEDS ORDERED: ONDANSETRON INJ 2 MG/ML 2 ML VIAL IV STA (04:36)
[2022-03-10] MEDS ORDERED: fentaNYL citrate 100 MCG/2 ML VIAL IV ONE (04:36)
[2022-03-10] MEDS ORDERED: ACETAMINOPHEN 1,000 MG/100 ML VIAL IV STA (04:36)
--- NOTE | 2022-03-10 04:54 | Emergency Department Note ---
Impression & Plan Fracture, pelvis closed, Closed sacral fracture, Dementia ED Provider Note CHIEF COMPLAINT: Fall, right hip pain, scalp hematoma HISTORY OF PRESENT ILLNESS: This 87-year-old female patient presents to the emergency department with complaints of a fall, scalp hematoma and right hip pain from assisted living facility. Ambulance was called after the patient was noted to be on the floor. She does suffer from dementia and is unable to recall events preceding her visit to the emergency department. Patient denied any pain except in the cervical spine on my evaluation however after moving the lower extremities complains of pain in the right buttock. History significantly limited secondary to the patient's dementia. Of note the patient is on warfarin for history of atrial fibrillation. REVIEW OF SYSTEMS: History is limited secondary to the patient's dementia ALLERGIES: see below MEDICATIONS: see below PMH: see below SOCIAL HISTORY: see below DDx: Fracture, dislocation, contusion, intra-abdominal, pneumothorax, intrathoracic, intracranial, neurologic, compartment syndrome, rhabdomyolysis, as well as other pathologies. PHYSICAL EXAM: Vital signs reviewed. General: Elderly-appearing 87 yo female, in no significant distress. Cervical collar in place. HEENT: No scleral icterus, PERRLA, neck supple. Atraumatic. Cardiovascular: Regular rate and rhythm, no extra sounds. Pulmonary: Clear to auscultation bilaterally, normal work of breathing. Abdomen: Soft, nontender, nondistended, positive bowel sounds. Musculoskeletal: Minimal peripheral edema, mild abrasion to the right anterior knee. Positive pain with range of motion of the right greater than left hip. Some discomfort with pelvic rocking. No obvious deformity of the bilateral hips distal pulses are intact. Full flexion of the bilateral knees Neurologic: Patient awake alert and pleasantly confused, able to follow simple commands and speech is clear Skin: Warm, dry, no rash EMERGENCY DEPARTMENT COURSE/MDM: This patient was evaluated and appeared to be in no significant distress. IV access was obtained and laboratory work was drawn. The patient was placed on the nurse monitoring and noted to be in an atrially paced rhythm. CT imaging of the head, cervical spine was performed and reveals no evidence of acute intracranial abnormality. A large scalp hematoma is noted. There is no evidence of cervical spine fracture. X-ray of the right hip was performed and is suspicious for a pelvis fracture and questionable femoral neck fracture. CT imaging of the pelvis was then performed and is co nsistent with superior and inferior pubic ramus fracture and sacral ala fracture. A Mullen catheter was placed. Patient requested pain medication and was given IV acetaminophen and 25 mcg of IV fentanyl with 4 mg of IV Zofran. She was hydrated with normal saline solution. The hospitalist service was consulted for admission and further management. MONITORING: An order for cardiac monitoring was placed and the patient is noted to be in atrially paced rhythm at 65 beats per minute. RADIOLOGY: CT HEAD: Large right parietal scalp hematoma. No fracture. Diffuse cerebral volume loss and chronic, small vessel ischemic changes in the white matter. No acute intracranial findings. Radiologist: Timo Pacheco MD Study ready at 02:30 and initial results transmitted at 04:32 Preliminary Findings Only See Final Report For Complete Findings CT C SPINE: No acute findings in the cervical spine. Radiologist: Timo Pacheco MD Study ready at 02:30 and initial results transmitted at 04:35 Preliminary Findings Only See Final Report For Complete Findings CT PELVIS: Fractures of the right superior and inferior pubic rami as well as the right sacral ala. Radiologist: Timo Pacheco MD Study ready at 04:29 and initial results transmitted at 04:45 EKG: Atrially paced rhythm with prolonged AV conduction at 65 bpm. Poor quality baseline for interpretation. Left axis deviation, right bundle branch block. T wave abnormality, consider inferior lateral ischemia. QTC is 484. DISPOSITION: Admission Past Med/Surg History Medical History Acute GI bleeding Anemia Anticoagulant long-term use Anxiety Aortic stenosis, severe CAD (coronary artery disease) Chronic diastolic congestive heart failure CKD (chronic kidney disease) CVA (cerebral vascular accident) Dyslipidemia Essential hypertension GERD without esophagitis H/O non-ST elevation myocardial infarction (NSTEMI) History of pneumonia Hypothyroidism Mild cognitive impairment Paroxysmal atrial fibrillation TIA (transient ischemic attack) Type 2 diabetes mellitus Urinary incontinence Surgical History History of hysterectomy Hx of CABG S/P cardiac pacemaker procedure S/P lumpectomy of breast Status post carotid surgery L CEA Status post cholecystectomy Family History Family/Other No problems noted. Brother Cardiac disorder Stroke Hypertension Lung disease Mother Stroke Father Stroke Sister Lung cancer Malignant neoplasm of urinary bladder Denies family history of Colon cancer Ovarian cancer Prostate cancer Myocardial infarction Breast cancer Social History (Updated 03/10/22 @ 05:09 by Barbra Miller MD) Smoking Status: Never smoker Age Started Using Tobacco: 17; Age Quit Using Tobacco: 29; packs per day: 0.5; Second Hand Exposure: Yes; Hx Alcohol Use: Yes Alcohol type: beer Hx Substance Use: No Preferred Language: Ukrainian Communication Ability: Impaired Visual Impairment: Limited Hearing Ability: Use of Hearing Aid Commissary Officer Required: No Beliefs That Will Affect Care: None marital status: Single Current Living Situation: Personal Care Facility Current Living Situation Comment: [facility] current occupational status: retired How many Children do You have: 2 Feels Safe at Home: Yes Childhood Exposure to Second-Hand Smoke: Yes caffeine: Yes during the past year weight has: remained stable Dental Care, Regularly: Yes Physical Activity Frequency: Other Physical Activity Frequency Comment: limited by phusical condition Seatbelt Use: always Sunscreen Use: No Assistive Devices: Walker Allergies Allergies Allergy/AdvReac Type Severity Reaction Status Date / Time Iodinated Contrast Media Allergy Severe Hives Verified 03/10/22 01:42 Penicillins Allergy Intermediate HIVES Verified 03/10/22 01:42 Home Meds Home Medications Medication Instructions Recorded Confirmed cholecalciferol (vitamin D3) 125 5,000 units PO QAM 08/02/19 03/10/22 mcg (5,000 unit) capsule melatonin 5 mg tablet 5 mg PO HS 08/02/19 03/10/22 acetaminophen 500 mg tablet 500 mg PO QID PRN 01/16/22 03/10/22 (Tylenol Extra Strength) escitalopram oxalate 5 mg tablet 5 mg PO QAM 01/16/22 03/10/22 levothyroxine 50 mcg tablet 50 mcg PO DAILYBB 01/16/22 03/10/22 linagliptin 5 mg tablet (Tradjenta) 5 mg PO QAM 01/16/22 03/10/22 ferrous sulfate 325 mg (65 mg 325 mg PO QDL 03/10/22 03/10/22 iron) tablet metoprolol tartrate 25 mg tablet 12.5 mg PO BID 03/10/22 03/10/22 sennosides 8.6 mg-docusate sodium 2 tab-cap PO HS 03/10/22 03/10/22 50 mg capsule (Senna Plus) Previous Rx's Medication Instructions Recorded propafenone 150 mg tablet 150 mg PO Q8H #90 tab 12/23/21 cyanocobalamin (vitamin B-12) 500 1,000 mcg PO QAM #30 tab 01/19/22 mcg tablet pantoprazole 40 mg tablet,delayed 40 mg PO BID #60 tab 01/19/22 release sucralfate 1 gram tablet (Carafate) 1 g PO QID 30 Days #120 tab 01/19/22 thiamine HCl (vitamin B1) 100 mg 100 mg PO QAM #30 tab 01/19/22 tablet magnesium oxide 400 mg PO DAILY #30 cap 01/20/22 hydrocodone 5 mg-acetaminophen 325 1 tab PO Q4H PRN #12 tab 03/11/22 mg tablet tramadol 50 mg tablet 50 mg PO BID #30 tab 03/11/22 Results & Data (ED) Vital Signs Vital Signs - 24 hr 03/10/22 01:34 03/10/22 01:46 03/10/22 01:47 Temperature 36.9 C 36.9 C Temperature Source Oral Oral Pulse Rate 65 65 Pulse Rate [Finger] 65 Respiratory Rate 17 17 17 Respiratory Effort / Characteristics Non-Labored Spontaneous Non-Labored Spontaneous Respiratory Depth Normal Normal Blood Pressure 182/91 H Blood Pressure [Right Arm] 182/91 H Blood Pressure Mean 121 Blood Pressure Mean [Right Arm] 121 Blood Pressure Position Lying Blood Pressure Position [Right Arm] Lying Pulse Oximetry 94 94 94 Oxygen Delivery Method Room Air Room Air Room Air Oxygen Flow Rate Sepsis Recent Fever Within 48 Hours No Sepsis New/Unexplained Change in Mental Status No Sepsis Action Taken by Nursing No Action Required 03/10/22 04:36 Temperature Temperature Source Pulse Rate Pulse Rate [Finger] 65 Respiratory Rate 17 Respiratory Effort / Characteristics Non-Labored Spontaneous Respiratory Depth Normal Blood Pressure Blood Pressure [Right Arm] 157/78 H Blood Pressure Mean Blood Pressure Mean [Right Arm] 104 Blood Pressure Position Blood Pressure Position [Right Arm] Lying Pulse Oximetry 98 Oxygen Delivery Method Nasal Cannula Oxygen Flow Rate 2 Sepsis Recent Fever Within 48 Hours Sepsis New/Unexplained Change in Mental Status Sepsis Action Taken by [facility] Medications Current Medication List: was personally reviewed by me Laboratory Data Attestation: I reviewed the patient's lab results. Result diagrams: 03/11/22 11:49 03/11/22 06:01 Lab Results 03/10/22 03/10/22 03/10/22 Range/Units 01:35 01:35 05:05 WBC 12.57 H (4.8-10.8) K/uL RBC 3.84 L (4.2-5.4) M/uL Hgb 12.0 (12.0-16.0) g/dL Hct 35.4 L (37-47) % MCV 92.2 (80-100) fL MCH 31.3 (25-34) pg MCHC 33.9 (32-36) g/dL RDW Std Deviation 56.2 H (36.4-46.3) fL RDW Coeff of Charisma 16.6 H (11.5-14.5) % Plt Count 201 (130-400) K/uL MPV 10.6 H (7.4-10.4) fL Immature Gran % (Auto) 1.3 % Neut % (Auto) 77.7 % Lymph % (Auto) 13.3 % [place] % (Auto) 6.0 % Eos % (Auto) 1.4 % Baso % (Auto) 0.3 % Neut # (Auto) 9.77 H (1.4-6.5) K/uL Lymph # (Auto) 1.67 (1.2-3.4) K/uL [place] # (Auto) 0.75 H (0.11-0.59) K/uL Eos # (Auto) 0.18 (0-0.5) K/uL Baso # (Auto) 0.04 (0-0.2) K/uL Immature Gran # (Auto) 0.16 H (0.00-0.02) K/uL PT (9.0-12.0) Seconds INR (0.9-1.1) APTT (21.0-31.0) Seconds PTT Ratio Sodium 133 L (136-145) mmol/L Potassium 4.5 (3.5-5.1) mmol/L Chloride 99 (98-107) mmol/L Carbon Dioxide 24 (21-32) mmol/L Anion Gap 10 (3-11) BUN 23 (6-23) mg/dl Creatinine 1.43 H (0.6-1.2) mg/dl Est Cr Clr Drug Dosing 23.4 ml/min Est GFR ( Amer) 37.8 ml/min Est GFR (Non-Af Amer) 32.6 ml/min BUN/Creatinine Ratio 16.1 (10-20) Glucose 150 H (70-99(Fasting)) mg/dl Calcium 9.2 (8.5-10.1) mg/dl Magnesium 1.8 (1.7-2.4) mg/dl Total Bilirubin 0.4 (0.2-1.0) mg/dl AST 17 (13-39) U/L ALT 11 (7-52) U/L Alkaline Phosphatase 62 (34-104) U/L Troponin I High Sens 9.7 (0-14) pg/ml Total Protein 7.1 (6.0-8.3) gm/dl Albumin 4.4 (3.4-5.0) gm/dl Globulin 2.7 (2.5-4.0) gm/dl Albumin/Globulin Ratio 1.6 (0.9-2) Urine Color Yellow Urine Appearance Clear (Clear) Urine pH 6.0 (4.5-7.5) Ur Specific [place] 1.017 (1.000-1.030) Urine Protein 2+ H (Negative) Urine Glucose (UA) Negative (Negative) Urine Ketones Negative (Negative) Urine Blood Negative (Negative) Urine Nitrite Negative (Negative) Urine Bilirubin Negative (Negative) Urine Urobilinogen Negative (Negative) Ur Leukocyte Esterase Negative (Negative) Urine WBC (Auto) 1-5 (0-5) /hpf Urine RBC (Auto) 0-4 (0-4) /hpf U Hyaline Cast (Auto) 1-5 (0-5) /lpf U Epithel Cells (Auto) >30 H (0-5) /lpf Urine Bacteria (Auto) 4+ H (Negative) 24/22 Range/Units 05:24 WBC (4.8-10.8) K/uL RBC (4.2-5.4) M/uL Hgb (12.0-16.0) g/dL Hct (37-47) % MCV (80-100) fL MCH (25-34) pg MCHC (32-36) g/dL RDW Std Deviation (36.4-46.3) fL RDW Coeff of Charisma (11.5-14.5) % Plt Count (130-400) K/uL MPV (7.4-10.4) fL Immature Gran % (Auto) % Neut % (Auto) % Lymph % (Auto) % [place] % (Auto) % Eos % (Auto) % Baso % (Auto) % Neut # (Auto) (1.4-6.5) K/uL Lymph # (Auto) (1.2-3.4) K/uL [place] # (Auto) (0.11-0.59) K/uL Eos # (Auto) (0-0.5) K/uL Baso # (Auto) (0-0.2) K/uL Immature Gran # (Auto) (0.00-0.02) K/uL PT 22.6 H (9.0-12.0) Seconds INR 2.2 H (0.9-1.1) APTT 37.2 H (21.0-31.0) Seconds PTT Ratio 1.4 Sodium (136-145) mmol/L Potassium (3.5-5.1) mmol/L Chloride (98-107) mmol/L Carbon Dioxide (21-32) mmol/L Anion Gap (3-11) BUN (6-23) mg/dl Creatinine (0.6-1.2) mg/dl Est Cr Clr Drug Dosing ml/min Est GFR ( Amer) ml/min Est GFR (Non-Af Amer) ml/min BUN/Creatinine Ratio (10-20) Glucose (70-99(Fasting)) mg/dl Calcium (8.5-10.1) mg/dl Magnesium (1.7-2.4) mg/dl Total Bilirubin (0.2-1.0) mg/dl AST (13-39) U/L ALT (7-52) U/L Alkaline Phosphatase (34-104) U/L Troponin I High Sens (0-14) pg/ml Total Protein (6.0-8.3) gm/dl Albumin (3.4-5.0) gm/dl Globulin (2.5-4.0) gm/dl Albumin/Globulin Ratio (0.9-2) Urine Color Urine Appearance (Clear) Urine pH (4.5-7.5) Ur Specific [place] (1.000-1.030) Urine Protein (Negative) Urine Glucose (UA) (Negative) Urine Ketones (Negative) Urine Blood (Negative) Urine Nitrite (Negative) Urine Bilirubin (Negative) Urine Urobilinogen (Negative) Ur Leukocyte Esterase (Negative) Urine WBC (Auto) (0-5) /hpf Urine RBC (Auto) (0-4) /hpf U Hyaline Cast (Auto) (0-5) /lpf U Epithel Cells (Auto) (0-5) /lpf Urine Bacteria (Auto) (Negative) Administered Medications Discontinued Medications Acetaminophen (Acetaminophen 325 Mg Tab) 650 mg PO Q8H PRN PRN Reason: pain/fever Stop: 04/09/22 07:21 Last Admin: 03/10/22 12:58 Dose: 650 mg Documented by: [id number] Hydrocodone Bitart/Acetaminophen (Hydrocodone/Acetamophen 5/325mg Tab) 1 tab PO Q6H PRN PRN Reason: Moderate Pain Stop: 03/24/22 07:21 Last Admin: 03/10/22 14:20 Dose: 1 tab Documented by: [id number] Admin: 03/10/22 08:20 Dose: 1 tab Documented by: [id number] Hydrocodone Bitart/Acetaminophen (Hydrocodone/Acetamophen 5/325mg Tab) 1 tab PO Q6H PRN PRN Reason: Pain Stop: 03/25/22 13:43 Last Admin: 03/11/22 14:01 Dose: 1 tab Documented by: [id number] Cyanocobalamin (Cyanocobalamin (B-12) 500 Mcg Tablet) 1,000 mcg PO [facility] Stop: 04/09/22 08:59 Last Admin: 03/11/22 08:23 Dose: 1,000 mcg Documented by: [id number] Admin: 03/10/22 08:34 Dose: 1,000 mcg Documented by: [id number] Escitalopram Oxalate (Escitalopram Oxalate 10 Mg Tab) 5 [facility] Stop: 04/09/22 08:59 Last Admin: 03/11/22 08:22 Dose: 5 mg Documented by: [id number] Admin: 03/10/22 08:34 Dose: 5 mg Documented by: [id number] Fentanyl Citrate (Fentanyl Citrate 100 Mcg/2 Ml Vial) 25 mcg IV NOW ONE Stop: 03/10/22 04:37 Last Admin: 03/10/22 04:46 Dose: 25 mcg Documented by: [id number] Ferrous Sulfate (Ferrous Sulfate 325 Mg Tab) 325 mg PO QDL [facility] Stop: 04/09/22 11:29 Last Admin: 03/11/22 13:39 Dose: 325 mg Documented by: [id number] Admin: 03/10/22 12:58 Dose: 325 mg Documented by: [id number] Hydromorphone HCl (Hydromorphone Inj 0.5 Mg/0.5 Ml Syr) 0.25 mg IV Q6H PRN PRN Reason: Severe Pain Stop: 03/24/22 07:21 Last Admin: 03/10/22 16:02 Dose: 0.25 mg Documented by: [id number] Acetaminophen (Ofirmev) 1,000 mg in 100 mls @ 400 mls/hr IV NOW STA Stop: 03/10/22 04:50 Last Infusion: 03/10/22 05:28 Dose: 0 mls/hr Documented by: [id number] Admin: 03/10/22 04:48 Dose: 400 mls/hr Documented by: [id number] Lactated Ringer's (Lr) 1,000 mls @ 80 mls/hr IV .[id number] [facility] Stop: 03/10/22 18:29 Last Infusion: 03/10/22 20:39 Dose: 0 mls/hr Documented by: [id number] Admin: 03/10/22 05:55 Dose: 80 mls/hr Documented by: [id number] Insulin Aspart (Insulin Aspart Per Unit) 0 units SC ACHS [facility] Stop: 04/09/22 07:29 Last Admin: 03/11/22 13:38 Dose: 2 units Documented by: [id number] Cosigned by: [id number] Admin: 03/11/22 09:21 Dose: Not Given Documented by: [id number] Admin: 03/10/22 21:08 Dose: 1 units Documented by: [id number] Cosigned by: [id number] Admin: 03/10/22 18:13 Dose: Not Given Documented by: [id number] Admin: 03/10/22 12:57 Dose: 1 units Documented by: [id number] Cosigned by: [id number] Admin: 03/10/22 08:58 Dose: 1 units Documented by: [id number] Cosigned by: [id number] Levothyroxine Sodium (Levothyroxine Sodium 50 Mcg Tablet) [facility] Stop: 04/09/22 07:21 Last Admin: 03/11/22 05:18 Dose: 50 mcg Documented by: [id number] Admin: 03/10/22 08:35 Dose: 50 mcg Documented by: [id number] Magnesium Oxide (Magnesium Oxide 400 Mg Tab) 400 mg PO DAILY [facility] Stop: 04/09/22 08:59 Last Admin: 03/11/22 08:23 Dose: 400 mg Documented by: [id number] Admin: 03/10/22 08:34 Dose: 400 mg Documented by: [id number] Melatonin (Melatonin 3 Mg Tab) 6 mg PO HS [facility] Stop: 04/09/22 20:59 Last Admin: 03/10/22 20:35 Dose: 6 mg Documented by: [id number] Metoprolol Tartrate (Metoprolol Tartrate 25 Mg Tab) 12.5 mg PO BID [facility] Stop: 04/09/22 08:59 Last Admin: 03/11/22 08:22 Dose: 12.5 mg Documented by: [id number] Admin: 03/10/22 20:35 Dose: 12.5 mg Documented by: [id number] Admin: 03/10/22 08:35 Dose: 12.5 mg Documented by: [id number] Ondansetron HCl (Ondansetron Inj 2 Mg/Ml 2 Ml Vial) 4 mg IV NOW STA Stop: 03/10/22 04:37 Last Admin: 03/10/22 04:43 Dose: 4 mg Documented by: [id number] Pantoprazole Sodium (Pantoprazole 40 Mg Tab) 40 mg PO BID [facility] Stop: 04/09/22 08:59 Last Admin: 03/11/22 08:21 Dose: 40 mg Documented by: [id number] Admin: 03/10/22 20:37 Dose: 40 mg Documented by: [id number] Admin: 03/10/22 08:35 Dose: 40 mg Documented by: [id number] Phytonadione (Phytonadione 5 Mg Tab) 5 mg PO NOW STA Stop: 03/11/22 10:46 Last Admin: 03/11/22 11:25 Dose: 5 mg Documented by: [id number] Propafenone HCl (Propafenone Hcl 150 Mg Tablet) 150 mg PO Q8 [facility] Stop: 04/09/22 07:21 Last Admin: 03/11/22 13:39 Dose: 150 mg Documented by: [id number] Admin: 03/11/22 05:18 Dose: 150 mg Documented by: [id number] Admin: 03/10/22 20:37 Dose: 150 mg Documented by: [id number] Admin: 03/10/22 12:58 Dose: 150 mg Documented by: [id number] Admin: 03/10/22 08:57 Dose: 150 mg Documented by: [id number] Senna/Docusate Sodium (Docusate Sodium/Senna 50/8.6mg Tab) 2 tab PO HS [facility] Stop: 04/09/22 20:59 Last Admin: 03/10/22 20:35 Dose: 2 tab Documented by: [id number] Sucralfate (Sucralfate 1 Gm Tab) 1 gm PO QID [facility] Stop: 04/09/22 08:59 Last Admin: 03/11/22 13:39 Dose: 1 gm Documented by: [id number] Admin: 03/11/22 08:21 Dose: 1 gm Documented by: [id number] Admin: 03/10/22 20:37 Dose: 1 gm Documented by: [id number] Admin: 03/10/22 18:13 Dose: 1 gm Documented by: [id number] Admin: 03/10/22 12:58 Dose: 1 gm Documented by: [id number] Admin: 03/10/22 08:35 Dose: 1 gm Documented by: [id number] Thiamine HCl (Thiamine Hcl 100 Mg Tab) [facility] Stop: 04/09/22 08:59 Last Admin: 03/11/22 08:23 Dose: 100 mg Documented by: [id number] Admin: 03/10/22 08:35 Dose: 100 mg Documented by: [id number] Tramadol HCl (Tramadol Hcl 50 Mg Tablet) 50 mg PO BID [facility] Stop: 04/09/22 20:59 Last Admin: 03/11/22 08:23 Dose: 50 mg Documented by: [id number] Admin: 03/10/22 20:39 Dose: 50 mg Documented by: [id number] Tramadol HCl (Tramadol Hcl 50 Mg Tablet) 50 mg PO Q6H PRN PRN Reason: pain Stop: 04/09/22 16:59 Last Admin: 03/11/22 02:23 Dose: 50 mg Documented by: [id number] Vitamin D (Cholecalciferol 5,000 Units 125 Mcg Tab) 5,000 units PO [facility] Stop: 04/09/22 08:59 Last Admin: 03/11/22 08:23 Dose: 5,000 units Documented by: [id number] Admin: 03/10/22 08:34 Dose: 5,000 units Documented by: [id number] Blood Pressure Blood Pressure Findings: Elevated blood pressure Blood Pressure Disposition: further management by hospitalist Discharge Plan Visit Data Chief Complaint: Fall ED Provider: Barbra Miller Discharge Problem: Fracture, pelvis closed, Closed sacral fracture, Dementia Patient Disposition: Admitted As Inpatient Discharge Instructions Interventions: ED Discharge Assessment Last Done: 03/10/22 06:25 Discharge Problem: Fracture, pelvis closed Qualifiers: Encounter type: initial encounter Pelvic bone location: pubis Sublocation of pubis: unspecified portion of pubis Laterality: right Qualified Code(s): S32.501A - Unspecified fracture of right pubis, initial encounter for closed fracture Closed sacral fracture Qualifiers: Encounter type: initial encounter Zone of sacrum fracture: unspecified portion of sacrum Qualified Code(s): S32.10XA - Unspecified fracture of sacrum, initial encounter for closed fracture Dementia Qualifiers: Dementia type: unspecified type Dementia behavioral disturbance: without behavioral disturbance Qualified Code(s): F03.90 - Unspecified dementia without behavioral disturbance
--- NOTE | 2022-03-10 05:16 | History & Physical Report ---
Date of Service March 10, 2022 Assessment & Plan (1) Closed right hip fracture: Plan: Ria Mitchell is an 87yo female with PMHx significant for CAD (s/p CABG), HFpEF, h/o CVA, PAF (s/p PPM, on Warfarin), severe , T2DM (A1c 6.0 in 01/2022), CKDIV (Cr baseline 1.3 - 1.6), dementia, and recurrent falls who was brought to [facility] ED on 03/10 from [facility] by EMS after a fall. Right Hip Fracture CT right hip with acute nondisplaced fracture of right superior and inferior pubic rami as well as right sacral ala. Due to mechanical fall, with possible contribution from symptomatic severe as patient reports shortness of breath during initial ambulation which preceded the fall. - PT/OT ordered - patient will likely require rehab before going back to [facility] - Graduated pain regimen: Tylenol 650mg PO Q8H; Montello 5/325mg PO Q6H; Dilaudid 0 .25mg IV Q6H - patient is poor surgical candidate due to severe comorbidities Right Parietal Scalp Hematoma CT head showed large right parietal scalp hematoma without fx or intracranial pathology. Appears to be stable per serial examination. No s/s increased intracranial pressure or active bleeding. - follow closely for changes - hold home Warfarin Leukocytosis; Hyponatremia WBC 12.57, neutrophilic predominance and L shift. Patient is afebrile; no recent illness or focal symptoms. Suspect hemoconcentration due to dehydration, which is likely contributing to Na 133 as well. - UA negative for signs of infection - no abx indicated at this time - will give light IV hydration with LR @80cc/hr x1L - trend CBC/BMP daily Chronic Medical Conditions PAF: INR 2.2 - therapeutic. hold Warfarin as stated above. continue home Lopressor and Propafenone. Patient may benefit from DOAC consideration at some point given easier dosing/monitoring (lower risk given frequent falls). T2DM: A1c 6.0 in 01/2022. Hold home Tradjenta; SSI while hospitalized CKDIV: Cr 1.4 - at baseline. Avoid nephrotoxic agents Chronic HFpEF: EF 50% in 2020. Cautious slow mIVFs as stated above Anxiety: continue home Lexapro Hypothyroidism: TSH 1.268 in 01/2022. Continue Synthroid Constipation: continue home meds GERD: continue home Protonix (2) Leukocytosis: (3) Paroxysmal atrial fibrillation: (4) CAD (coronary artery disease): (5) Hx of CABG: (6) Type 2 diabetes mellitus: (7) Chronic kidney disease, stage IV (severe): (8) Dementia: (9) S/P cardiac pacemaker procedure: (10) Aortic stenosis, severe: (11) Chronic diastolic congestive heart failure: (12) Anemia: (13) Anxiety: (14) CVA (cerebral vascular accident): (15) Dyslipidemia: (16) Essential hypertension: (17) GERD without esophagitis: (18) Hypothyroidism: (19) Hematoma of right parietal scalp: History of Present Illness Chief Complaint: fall Primary Care Provider: DO Ria Dang Stephen is an 87yo female with PMHx significant for CAD (s/p CABG), HFpEF, h/o CVA, PAF (s/p PPM, on Warfarin), severe , T2DM (A1c 6.0 in 01/2022), CKDIV (Cr baseline 1.3 - 1.6), dementia, and recurrent falls who was brought to [facility] ED on 03/10 from [facility] by EMS after a fall. Patient was reportedly getting up to use the bathroom and had ground level fall and struck back of her head, with resultant LOC. After the fall patient complained of right hip pain and back pain. Interview with patient is limited by dementia but patient denies current pain, since getting pain meds in the ED. Reports that she felt mildly short of breath when standing up and walking to the bathroom, got weak in her legs and fell. Denies syncope/near-syncope before falling. Denies recent illnesses. No dysuria. No cough/runny nose. No N/V, abdominal pain, or rash. Patient uses a walker and is able to get around inside with this. Does admit to recurrent falls. In the ED patient was hypertensive to BP 180s/90s and had to be temporarily placed on 2L NC. Labs significant for WBC 12.57, neutrophilic predominance and L shift. Na 133, Cr 1.43 (~baseline). CT head showed large right parietal scalp hematoma without fx or intracranial pathology. CT c spine unremarkable. CT right hip with acute nondisplaced fracture of right superior and inferior pubic rami as well as right sacral ala. Patient was given Tylenol 1g IV x1 and Fentanyl 25mcg IV x1, as well as Zofran 4mg IV x1. Allergies Allergy/AdvReac Type Severity Reaction Status Date / Time Iodinated Contrast Media Allergy Severe Hives Verified 03/10/22 01:42 Penicillins Allergy Intermediate HIVES Verified 03/10/22 01:42 Home Medications Medication Instructions Recorded Confirmed Type cholecalciferol (vitamin D3) 125 5,000 units PO QAM 08/02/19 03/10/22 History mcg (5,000 unit) capsule melatonin 5 mg tablet 5 mg PO HS 08/02/19 03/10/22 History propafenone 150 mg tablet 150 mg PO Q8H #90 tab 12/23/21 03/10/22 Rx acetaminophen 500 mg tablet 500 mg PO QID PRN 01/16/22 03/10/22 History (Tylenol Extra Strength) escitalopram oxalate 5 mg tablet 5 mg PO QAM 01/16/22 03/10/22 History levothyroxine 50 mcg tablet 50 mcg PO DAILYBB 01/16/22 03/10/22 History linagliptin 5 mg tablet (Tradjenta) 5 mg PO QAM 01/16/22 03/10/22 History warfarin 2 mg tablet 2 mg PO HS 01/16/22 03/10/22 History cyanocobalamin (vitamin B-12) 500 1,000 mcg PO QAM #30 tab 01/19/22 03/10/22 Rx mcg tablet pantoprazole 40 mg tablet,delayed 40 mg PO BID #60 tab 01/19/22 03/10/22 Rx release sucralfate 1 gram tablet (Carafate) 1 g PO QID 30 Days #120 tab 01/19/22 03/10/22 Rx thiamine HCl (vitamin B1) 100 mg 100 mg PO QAM #30 tab 01/19/22 03/10/22 Rx tablet magnesium oxide 400 mg PO DAILY #30 cap 01/20/22 03/10/22 Rx ferrous sulfate 325 mg (65 mg 325 mg PO QDL 03/10/22 03/10/22 History iron) tablet metoprolol tartrate 25 mg tablet 12.5 mg PO BID 03/10/22 03/10/22 History sennosides 8.6 mg-docusate sodium 2 tab-cap PO HS 03/10/22 03/10/22 History 50 mg capsule (Senna Plus) Past Med/Surg History Medical History Acute GI bleeding Anemia Anticoagulant long-term use Anxiety Aortic stenosis, severe CAD (coronary artery disease) Chronic diastolic congestive heart failure CKD (chronic kidney disease) CVA (cerebral vascular accident) Dyslipidemia Essential hypertension GERD without esophagitis H/O non-ST elevation myocardial infarction (NSTEMI) History of pneumonia Hypothyroidism Mild cognitive impairment Paroxysmal atrial fibrillation TIA (transient ischemic attack) Type 2 diabetes mellitus Urinary incontinence Surgical History History of hysterectomy Hx of CABG S/P cardiac pacemaker procedure S/P lumpectomy of breast Status post carotid surgery L CEA Status post cholecystectomy Family History Family/Other No problems noted. Brother Cardiac disorder Stroke Hypertension Lung disease Mother Stroke Father Stroke Sister Lung cancer Malignant neoplasm of urinary bladder Denies family history of Colon cancer Ovarian cancer Prostate cancer Myocardial infarction Breast cancer Social History (Updated 03/10/22 @ 05:09 by Barbra Miller MD) Smoking Status: Never smoker Age Started Using Tobacco: 17; Age Quit Using Tobacco: 29; packs per day: 0.5; Second Hand Exposure: Yes; Hx Alcohol Use: Yes Alcohol type: beer Hx Substance Use: No Preferred Language: Qatari Communication Ability: Effective Visual Impairment: Limited Hearing Ability: Use of Hearing Aid Floor Care Specialist Required: No Beliefs That Will Affect Care: None marital status: Single Current Living Situation: Personal Care Facility Current Living Situation Comment: [facility] current occupational status: retired How many Children do You have: 2 Other Information That Helps Us Care for You: No Feels Safe at Home: Yes Safety Concerns: Feels Safe At This Time Childhood Exposure to Second-Hand Smoke: Yes caffeine: Yes during the past year weight has: remained stable Dental Care, Regularly: Yes Physical Activity Frequency: Other Physical Activity Frequency Comment: limited by phusical condition Seatbelt Use: always Sunscreen Use: No Assistive Devices: Denture - Upper, Denture - Lower and Hearing Aid - Bilateral Assistive Devices Comment: Glasses - not here Review of Systems Review of Systems: All systems reviewed & are unremarkable except as noted in HPI & below Physical Exam Physical Exam: General: A&Ox3. NAD. Cooperative. HEENT: Atraumatic, normocephalic. Pulm: CTAB A&P. -wheezes, -rales, -rhonchi. Symmetrical chest rise. No increase work of breathing. No respiratory distress. Cardiac: RRR, -mrg. Radial pulses intact and symmetrical. No LE edema. Abdominal: soft, non-tender, non-distended, BS x 4 Skin: warm, dry, no rash Results & Data Results & Data ([facility]) Vital Signs (Past 12 Hours) Vital Signs Temp Pulse Pulse Resp BP BP Pulse Ox 03/10/22 04:36 65 17 157/78 H 98 03/10/22 01:47 65 17 94 03/10/22 01:46 36.9 C 65 17 182/91 H 94 03/10/22 01:34 36.9 C 65 17 182/91 H 94 Supervising Physician Co-Signing Physician Notes Attending addendum: I have physically seen this patient, have supervised the medical residents activities, and agree with the H&P unless as otherwise noted. Assessment and Plan: Closed right superior and inferior pubic rami fractures/right sacral jen fra cture- Status post mechanical fall Admit for pain control Acetaminophen 600 mg p.o. every 6 hours as needed mild pain or fever Montello 5/325, 1 p.o. every 6 hours as needed moderate pain Dilaudid 0.25 mg IV every 6 hours as needed severe pain PT/OT Will likely need admission for rehab Remaining orders and notations as noted Resident Activity Tracking Resident Involvement: Resident Care Provided Care Provided: Adult Hospital Medicine
[2022-03-10 05:27] LABS: Appearance Urine Clear (Clear); Bacteria Urine Automated 4+ (Negative); Bilirubin Urine Negative (Negative); Blood Urine Negative (Negative); Color Urine Yellow; Epithelial Cell Urine Auto >30 /lpf (0-5); Glucose Urine UA Negative (Negative); Ketones Urine Negative (Negative); Leukocyte Esterase Urine Negative (Negative); Nitrite Urine Negative (Negative); Protein Urine 2+ (Negative); RBC Urine Automated 0-4 /hpf (0-4); Specific Gravity Urine 1.017 (1.000-1.030); Urobilinogen Urine Negative (Negative)
[2022-03-10 05:54] LABS: INR 2.2 (0.9-1.1); Partial Thromboplastin Ratio 1.4; Partial Thromboplastin Time 37.2 Seconds (21.0-31.0); Prothrombin Time 22.6 Seconds (9.0-12.0)
[2022-03-10] MEDS ORDERED: LACTATED RINGER'S 1,000 ML IV SCH (06:00)
--- NOTE | 2022-03-10 07:19 | CT Scan Report ---
HEAD CT NONCONTRAST CT DOSE: 934.05 mGy.cm HISTORY: 1 trauma TECHNIQUE: Multiaxial CT images of the head were performed without the use of intravenous contrast. A utomated exposure control was utilized for this study. A dose lowering technique was utilized adheri ng to the principles of ALARA. Comparison: Head CT 01/19/2022. Findings: The paranasal sinuses and mastoid air cells are clear. The calvarium and skull base are int act. There is no mass, hematoma, midline shift, acute infarct. White matter hypodensity is nonspecifi c but suggestive of microvascular ischemic change. The ventricles and sulci demonstrate mild age-rela sophie involutional changes. Right parietal scalp swelling. Impression: No acute intracranial abnormality. Atrophy and microvascular ischemic changes. Right parietal scalp h ematoma. ACT 112: Negative or not required by law. Electronically signed by: Joseph Aggarwal M.D. 03/10/2022 7:17 AM
[2022-03-10] MEDS ORDERED: HYDROmorphone INJ 0.5 MG/0.5 ML SYR IV PRN ×2 (07:22→17:04)
[2022-03-10] MEDS ORDERED: ACETAMINOPHEN 325 MG TAB PO PRN (07:22)
[2022-03-10] MEDS ORDERED: DEXTROSE 50% 50 ML SYRINGE IV PRN (07:22)
[2022-03-10] MEDS ORDERED: GLUCOSE 40% GEL 15 GM TUBE PO PRN (07:22)
[2022-03-10] MEDS ORDERED: GLUCOSE 10 TABS/TUBE PO PRN (07:22)
[2022-03-10] MEDS ORDERED: GLUCAGON FOR INJ 1 MG VIAL SQ PRN (07:22)
[2022-03-10] MEDS ORDERED: CARBOHYDRATES FOR HYPOGLYCEMIA PO PRN (07:22)
--- NOTE | 2022-03-10 07:25 | CT Scan Report ---
CT cervical spine wo con CLINICAL HISTORY: trauma TECHNIQUE: Multidetector row helical CT of the cervical spine was performed without administration of intravenous contrast. Coronal and sagittal reformations were obtained. Automated dose lowering techn iques and/or adjustment according to patient size were utilized for this exam. Comparison: None available at the time of this dictation. FINDINGS: No acute fractures or subluxations are identified. Degenerative changes are seen in the visualized sp ine. Calcification of the transverse ligament is seen. The alignment is normal. Soft tissues are unre markable. IMPRESSION: No evidence of acute bony injury. ACT 112: Negative or not required by law. Electronically signed by: Misael Holguin M.D. 03/10/2022 7:24 AM
--- NOTE | 2022-03-10 07:59 | XRay Report ---
XR hip RT min 2V CLINICAL HISTORY: Fall. COMPARISON: CT of the abdomen and pelvis January 16, 2022. FINDINGS: Alignment of the right hip is anatomic. Osteophytosis of the right hip is noted. No acute proximal right femoral fracture is present. There are suspected acute right ischiopubic ring fracture s, suboptimally visualized on this exam. Fracture of the medial pubic bone may be displaced. Minimall y displaced fracture of the right inferior pubic ramus is present. IMPRESSION: 1. Suspected acute right ischiopubic ring fractures. 2. No acute proximal right femoral fracture. ACT 112: Negative or not required by law. Electronically signed by: Deyvi Casarez M.D. 03/10/2022 7:57 AM
--- NOTE | 2022-03-10 08:00 | XRay Report ---
XR chest 1V portable CLINICAL HISTORY: Weakness. Fall. COMPARISON STUDY: Chest radiograph January 16, 2022. FINDINGS: Dual lead right-sided pacer, median sternotomy wires and mediastinal cyst. Surgical clips a re present. Cardiomegaly is noted without evidence for pulmonary edema. There is no pneumothorax or p leural effusion. No consolidation. IMPRESSION: No acute cardiopulmonary findings. ACT 112: Negative or not required by law. Electronically signed by: Deyvi Casarez M.D. 03/10/2022 7:59 AM
[2022-03-10] MEDS: HYDROCODONE/ACETAMOPHEN 5/325MG TAB PO PRN ×2 (08:20→14:20)
[2022-03-10] MEDS: MAGNESIUM OXIDE 400 MG TAB PO SCH (08:34)
[2022-03-10] MEDS: CYANOCOBALAMIN (B-12) 500 MCG TABLET PO SCH (08:34)
[2022-03-10] MEDS: CHOLECALCIFEROL 5,000 UNITS 125 MCG TAB PO SCH (08:34)
[2022-03-10] MEDS: ESCITALOPRAM OXALATE 10 MG TAB PO SCH (08:34)
[2022-03-10] MEDS: LEVOTHYROXINE SODIUM 50 MCG TABLET PO SCH (08:35)
[2022-03-10] MEDS: THIAMINE HCL 100 MG TAB PO SCH (08:35)
[2022-03-10] MEDS: SUCRALFATE 1 GM TAB PO SCH ×4 (08:35→20:37)
[2022-03-10] MEDS: METOPROLOL TARTRATE 25 MG TAB PO SCH ×2 (08:35→20:35)
[2022-03-10] MEDS: PANTOprazole 40 MG TAB PO SCH ×2 (08:35→20:37)
[2022-03-10] MEDS: PROPAFENONE HCL 150 MG TABLET PO SCH ×3 (08:57→20:37)
--- NOTE | 2022-03-10 08:57 | CT Scan Report ---
CT pelvis wo con CLINICAL HISTORY: R hip pain TECHNIQUE: Helical axial images of the pelvis were obtained and displayed at 5 and 1 mm intervals. Au tomated dose lowering techniques and/or adjustment according to patient size were utilized for this e xam. This exam was performed with intravenous contrast. CT DOSE: 267.35 mGy.cm COMPARISON: None available at the time of this dictation. FINDINGS: Bladder: Unremarkable. Reproductive organs: Unremarkable. Bowel: Unremarkable. Lymph nodes Mesenteric: Unremarkable. Pelvic: Unremarkable. Peritoneum: Soft tissue stranding is seen in the pelvis. Vessels: Unremarkable. Abdominal wall: Surgical changes are seen in the abdomen. There is a small umbilical hernia. Bones: There are minimally displaced fractures of the right sacral ala. These do not involve the neur al foramina. There are comminuted fractures of the right superior and inferior pubic rami. The pubic symphysis and acetabula appear intact. Degenerative changes are seen in the spine and bilateral femor al acetabular joints. IMPRESSION: Comminuted fractures of the right superior and inferior pubic rami and minimally displaced fracture o f the right sacral alar. ACT 112: Negative or not required by law. Electronically signed by: Misael Holguin M.D. 03/10/2022 8:56 AM
[2022-03-10] MEDS: INSULIN ASPART PER UNIT SC SCH ×4 (08:58→21:08)
[2022-03-10] MEDS: FERROUS SULFATE 325 MG TAB PO SCH (12:58)
--- NOTE | 2022-03-10 14:49 | Electrocardiogram Report ---
Test Reason : Blood Pressure : / mmHG Vent. Rate : 065 BPM Atrial Rate : 065 BPM P-R Int : 232 ms QRS Dur : 176 ms QT Int : 466 ms P-R-T Axes : 094 -33 -40 degrees QTc Int : 484 ms Poor data quality, interpretation may be adversely affected Atrial-paced rhythm with prolonged AV conduction Left axis deviation Right bundle branch block T wave abnormality, consider inferolateral ischemia Abnormal ECG When compared with ECG of 18-JAN-2022 16:50, T wave inversion now evident in Inferior leads Confirmed by Juanito Coleman ([id number]) on 03/10/2022 2:49:22 PM Referred By: REFERRED SELF Confirmed By:Juanito Coleman
[2022-03-10] MEDS ORDERED: traMADol HCL 50 MG TABLET PO PRN (17:00)
[2022-03-10] MEDS ORDERED: ONDANSETRON INJ 2 MG/ML 2 ML VIAL IV PRN (17:00)
--- NOTE | 2022-03-10 17:14 | Communication Note ---
Date of Service: March 10, 2022 Patient seen on daily rounds today. She is an 87-year-old white female with a significant past medical history of CAD s/p CABG, CHF, paroxysmal atrial fibri llationon chronic Coumadin, history of CVA, severe aortic stenosis, CKD, dementia, hypothyroidism, and NIDDM. She lives at [facility]. She sustained a ground-level fall prompting her to be sent to the emergency department. In the ED she was found to have radiographic evidence of a pelvic fracture. Her pelvic CT showed a comminuted fracture of the right superior and inferior rami with minimally displaced right sacral alar fracture. CT of her head showed no acute intracranial process but noted to have a right parietal scalp hematoma INR 2.2 Patient hospitalized Currently she is pleasantly confused. Her family is at bedside. She vocalizes no complaints or concerns but nursing reports she has been complaining of some nausea General: Resting comfortably in her hospital bed. Pleasantly confused. Ecchymosis noted to the right scalp and right forehead. NAD. HEENT: See above. No skin laceration buccal mucosa is moist and pink Neck: No JVD. Negative hepatojugular reflex Cardiac: Currently in a sinus rhythm with 3/6 holosystolic murmur Lungs: CTA without W/R/R Abdomen: Normoactive X4. Soft and nontender in all quadrants. Extremities: Bruises noted to the bilateral arms and right elbow Neuro: Oriented to self. Cranial nerves II through XII are grossly intact. No focal neuro deficits Skin: See above Psych: Pleasantly confused A/P: 1. Closed pelvic fracture 2. Scalp hematoma 3. Leukocytosislikely reactive from fracture/fall 4. Recurrent falls Chronic medical conditions 1. CAD s/p CABG 2. CHFclinically compensated 3. NIDDM 4. Paroxysmal atrial fibrillationcurrently in a sinus rhythm 5. Chronic Coumadin therapy 6. Severe aortic stenosis 7. CKDat baseline 8. Dementia 9. Hypothyroidism * Pelvic fractures for the most part are nonsurgical. Occasionally, surgical intervention is required for sacral alar fracture but this patient specifically is a very poor surgical candidate given her severe dementia, severe aortic stenosis, CKD and underlying CAD. I did discuss with orthopedics who agrees patient should weight-bear as tolerated * Ultimately, goal is pain control. She seems to be having nausea which may be related to the opioid medication. Will transition to scheduled Ultram 50 mg twice daily with an additional midday dose if needed for pain. Can continue to utilize Dilaudid for breakthrough pain if needed * Consult PT/OT * Will reach out to case management. Patient is a bed hold at [facility]. Can look at getting her back to the retirement facility * In regards to her recurrent falls, this is the second fall over the past 2 months. Patient does have an underlying history of paroxysmal atrial fibrillation but per the granddaughter, she has remained in sinus. They have had reservations in stopping her Coumadin in the past given a stroke that occurred when her Coumadin was on hold for a colonoscopy. That being said, they are also very aware of her recurrent falls and high risk of an intracranial hemorrhage. At the very least, her Coumadin needs to be held given the hematoma and recent fracture. Family seems agreeable to stopping Coumadin altogether knowing that there is a benefit of stroke but the risk of falling and intracranial hemorrhage likely outweighs the risk of ischemic/embolic stroke. Patient does not necessarily need vitamin K at this time. We will just allow Coumadin to washout naturally unless her hematoma seems to be expanding or her hemoglobin drops * Patient's mild leukocytosis of 12.5 is likely reactive as her CXR shows no acute cardiopulmonary process and her urinalysis is not grossly infected * Discussed with granddaughter and daughter. Patient is to be a DNR/DNI * Continue prehospital medications as prior to this hospital stay * Plan for likely discharge back to retirement facility tomorrow
[2022-03-10] MEDS: traMADol HCL 50 MG TABLET PO SCH (20:39)
[2022-03-10] MEDS ORDERED: DOCUSATE SODIUM/SENNA 50/8.6MG TAB PO SCH (21:00)
[2022-03-10] MEDS ORDERED: MELATONIN 3 MG TAB PO SCH (21:00)
--- NOTE | 2022-03-10 23:27 | Billing Data ---
Date of Service March 10, 2022 Coding Level of Care Code 11760 Initial Inpt Care Lvl 3
[2022-03-11] MEDS: PROPAFENONE HCL 150 MG TABLET PO SCH ×2 (05:18→13:39)
[2022-03-11] MEDS: LEVOTHYROXINE SODIUM 50 MCG TABLET PO SCH (05:18)
[2022-03-11 06:50] LABS: Hematocrit (blood only) 28.4 % (37-47); Hemoglobin 9.4 g/dL (12.0-16.0); Mean Corpuscular Hemoglobin 30.6 pg (25-34); Mean Corpuscular Hgb Conc 33.1 g/dL (32-36); Mean Corpuscular Volume 92.5 fL (80-100); Mean Platelet Volume 10.7 fL (7.4-10.4); Platelet Count 165 K/uL (130-400); RDW Coefficient of Variation 16.9 % (11.5-14.5); RDW Standard Deviation 56.9 fL (36.4-46.3); Red Blood Count 3.07 M/uL (4.2-5.4); White Blood Count 8.17 K/uL (4.8-10.8)
[2022-03-11 07:15] LABS: BUN Creatinine Ratio 20.8 (10-20); Calcium 8.8 mg/dl (8.5-10.1); Creatinine Clr Calc Pharmacy 22.5 ml/min; Est GFR (African American) 42.4 ml/min; Est GFR (Non-African American) 36.6 ml/min; Potassium 4.5 mmol/L (3.5-5.1)
--- NOTE | 2022-03-11 08:12 | CT Scan Report ---
HEAD CT NONCONTRAST CT DOSE: 537.48 mGy.cm HISTORY: fall, chronic coumadin, drop in hemaglobin TECHNIQUE: Multiaxial CT images of the head were performed without the use of intravenous contrast. A utomated exposure control was utilized for this study. A dose lowering technique was utilized adheri ng to the principles of ALARA. Comparison: Head CT 03/10/2022. Findings: The paranasal sinuses and mastoid air cells are clear. The calvarium and skull base are int act. There is no mass, hematoma, midline shift, acute infarct. White matter hypodensity is nonspecifi c but suggestive of microvascular ischemic change. The ventricles and sulci demonstrate mild age-rela sophie involutional changes. There is an old small infarct within the left cerebellar hemisphere, unchan ged. There is a large right parietal scalp hematoma. Impression: 1. No acute intracranial abnormality. 2. Large right parietal scalp hematoma. ACT 112: Negative or not required by law. Electronically signed by: Joseph Aggarwal M.D. 03/11/2022 8:11 AM
[2022-03-11] MEDS: PANTOprazole 40 MG TAB PO SCH (08:21)
[2022-03-11] MEDS: SUCRALFATE 1 GM TAB PO SCH ×2 (08:21→13:39)
[2022-03-11] MEDS: METOPROLOL TARTRATE 25 MG TAB PO SCH (08:22)
[2022-03-11] MEDS: ESCITALOPRAM OXALATE 10 MG TAB PO SCH (08:22)
[2022-03-11] MEDS: CHOLECALCIFEROL 5,000 UNITS 125 MCG TAB PO SCH (08:23)
[2022-03-11] MEDS: MAGNESIUM OXIDE 400 MG TAB PO SCH (08:23)
[2022-03-11] MEDS: CYANOCOBALAMIN (B-12) 500 MCG TABLET PO SCH (08:23)
[2022-03-11] MEDS: THIAMINE HCL 100 MG TAB PO SCH (08:23)
[2022-03-11] MEDS: traMADol HCL 50 MG TABLET PO SCH (08:23)
[2022-03-11 09:04] LABS: Prothrombin Time 20.2 Seconds (9.0-12.0)
[2022-03-11] MEDS: INSULIN ASPART PER UNIT SC SCH ×2 (09:21→13:38)
[2022-03-11] MEDS ORDERED: PHYTONADIONE 5 MG TAB PO STA (10:45)
[2022-03-11 12:22] LABS: Hematocrit (blood only) 31.1 % (37-47); Hemoglobin 10.2 g/dL (12.0-16.0)
[2022-03-11] MEDS: FERROUS SULFATE 325 MG TAB PO SCH (13:39)
[2022-03-11] MEDS ORDERED: HYDROCODONE/ACETAMOPHEN 5/325MG TAB PO PRN (13:44)
--- NOTE | 2022-03-11 15:30 | Discharge Summary ---
Date of Service March 11, 2022 Admission HPI Per Admitting Provider Ria Mitchell is an 87yo female with PMHx significant for CAD (s/p CABG), HFpEF, h/o CVA, PAF (s/p PPM, on Warfarin), severe , T2DM (A1c 6.0 in 01/2022), CKDIV (Cr baseline 1.3 - 1.6), dementia, and recurrent falls who was brought to [facility] ED on 03/10 from [facility] by EMS after a fall. Patient was reportedly getting up to use the bathroom and had ground level fall and struck back of her head, with resultant LOC. After the fall patient complained of right hip pain and back pain. Interview with patient is limited by dementia but patient denies current pain, since getting pain meds in the ED. Reports that she felt mildly short of breath when standing up and walking to the bathroom, got weak in her legs and fell. Denies syncope/near-syncope before falling. Denies recent illnesses. No dysuria. No cough/runny nose. No N/V, abdominal pain, or rash. Patient uses a walker and is able to get around inside with this. Does admit to recurrent falls. In the ED patient was hypertensive to BP 180s/90s and had to be temporarily placed on 2L NC. Labs significant for WBC 12.57, neutrophilic predominance and L shift. Na 133, Cr 1.43 (~baseline). CT head showed large right parietal scalp hematoma without fx or intracranial pathology. CT c spine unremarkable. CT right hip with acute nondisplaced fracture of right superior and inferior pubic rami as well as right sacral ala. Patient was given Tylenol 1g IV x1 and Fentanyl 25mcg IV x1, as well as Zofran 4mg IV x1. Principal Diagnosis 1. Pelvic fracturenonsurgical 2. Right parietal hematoma 3. Ground-level fall (recurrent) 4. Chronic Coumadin therapy 5. Leukocytosislikely reactive Discharge Exam General: Resting comfortably in her hospital bed. Pleasantly confused. Ecchymosis noted to the right scalp and right forehead. Edema to the right side of the scalp. NAD. HEENT: See above. No skin laceration buccal mucosa is moist and pink Neck: No JVD. Negative hepatojugular reflex Cardiac: Currently in a sinus rhythm with 3/6 holosystolic murmur Lungs: CTA without W/R/R Abdomen: Normoactive X4. Soft and nontender in all quadrants. Extremities: Bruises noted to the bilateral arms and right elbow Neuro: Oriented to self. Cranial nerves II through XII are grossly intact. No focal neuro deficits Skin: See above Psych: Pleasantly confused Discharge Data Allergies Allergy/AdvReac Type Severity Reaction Status Date / Time Iodinated Contrast Media Allergy Severe Hives Verified 03/10/22 01:42 Penicillins Allergy Intermediate HIVES Verified 03/10/22 01:42 Consultations 03/10/22 04:48 ED Decision to Admit Stat Ordered Studies 03/10/22 01:38 CT cervical spine wo con Urgent IMPRESSION: No evidence of acute bony injury. CT head/brain wo con Urgent Impression: No acute intracranial abnormality. Atrophy and microvascular ischemic changes. Right parietal scalp hematoma. 03/10/22 03:56 CT pelvis wo con Urgent IMPRESSION: Comminuted fractures of the right superior and inferior pubic rami and minimally displaced fracture of the right sacral alar. 03/11/22 07:19 CT head/brain wo con Stat Impression: 1. No acute intracranial abnormality. 2. Large right parietal scalp hematoma. Hospital Course (1) Pelvic fracture: CT of the pelvis showing comminuted fractures of the right superior and inferior pubic rami minimally displaced fracture of the right sacral alar Pubic fracture nonsurgical. Occasionally right sacral alae fracture may be surgical but patient is a very poor surgical candidate given her severe aortic stenosis and end-stage dementia. Discussed with orthopedics who reports no surgery warranted Patient may weight-bear as tolerated Pain control with scheduled Ultram. Can utilize [place] as needed for maday kthrough pain. Would advise changing Ultram from twice a day to once daily as fracture heals and then discontinuing altogether--at discretion of house provider (2) Hematoma of right parietal scalp: Patient on chronic Coumadin No intracranial hemorrhage Coumadin held and vitamin K provided given expansion of hematoma Lengthy discussion with daughter and granddaughter regarding concern for chronic Coumadin therapy. Recommend stopping altogethersee below (3) Leukocytosis: Slightly elevated at 12.57 upon arrivallikely reactive from fracture/fall of Normalized to 8.17 without intervention (4) Recurrent falls: Patient with a history of recurrent falls. She [facility] the past 2 months She does take chronic Coumadin therapy. Chronic anticoagulation therapy in this patient who is 87 with end-stage dementia seems to pose more of a risk than her risk of stroke from her A. fib. See below Chronic medical conditions 1. CAD s/p CABG 2. CHFclinically compensated 3. NIDDM 4. Paroxysmal atrial fibrillationcurrently in a sinus rhythm 5. Chronic Coumadin therapy 6. Severe aortic stenosis 7. CKDat baseline 8. Dementia 9. Hypothyroidism * Patient should continue her prehospital medications as outlined except for her Coumadin * Lengthy discussion with patient's daughter and granddaughter regarding risk/benefit profile. Patient does have paroxysmal atrial fibrillation but for the most part has been in sinus per family. She has been in sinus throughout this hospitalization. Stopping her anticoagulation therapy does increase her risk of stroke as her [id number] 2 score is 8. This poses a 10.8% stroke risk per year. Unfortunately, the risk of keeping her on anticoagulation therapy at this point is also high. Patient has had recurrent falls. This most recent fall, she hit her head and suffered a parietal hematoma. She is very fortunate that she did not have an intracranial hemorrhage. At the very least, her Coumadin should be held but could consider discontinuation altogether. I did discuss this with her daughter and granddaughter who would like to discontinue Coumadin. They are aware of her stroke risk Total Time Total Time Spent Total Time Spent (In Minutes): 55 minutes including time spent with patient, calling granddaughter, discussion with case management, discussion with attending provider, preparation of documentation and coordination of care. Discharge Plan Discharge Items Patient Disposition: Transfer Group Home Fac Reason For Visit: Pelvic Fracture Discharge Diagnosis: 1. Pelvic fracture 2. Right parietal hematoma 3. Ground-level fall 4. Leukocytosislikely reactive Activity: Resume your previous activity Activity Comment: Weight-bear as tolerated Non-emergency contact: Primary Care Provider Call non-emergency contact if: your symptoms worsen and your pain is unusual for you Follow-up/Referrals: Ofelia Barron DO [Primary Care Provider] - Diet: Carb Consistent or DM2 Addtl Attending Provider Instructions: Patient was hospitalized following a ground-level fall She was found to have a pelvic fracture that is nonsurgical, and a right parietal hematoma Plan is [facility] where she can weight- bear as tolerated. Given her age and recurrent falls along with her hematomaher Coumadin should be stopped. I had a lengthy discussion with patient's daughter and granddaughter regarding benefits/risks. Risks to stopping this medication are stroke given her underlying paroxysmal atrial fibrillation. Patient has been in sinus per granddaughter. Remains in sinus throughout this hospital stay. She is at risk for going back into atrial fibrillation and thus having a stroke; however, I believe that her risk of fall and intracranial hemorrhage is higher. At any rate, her Coumadin should at least be held given the hematoma but would advise or consider discontinuation altogether. She was prescribed Ultram for pain. Given her dementia and inability to vocalize when she needs "as needed" pain medication, she has been placed on scheduled Ultram. We have been avoiding narcotic medication given her age and dementia. Her pain seems to be well controlled with Ultram twice daily. I would advise decreasing to once a day in approximately 1 week and if patient continues to do well potentially changing it to as needed in 2 weeks. The intent is not for her to stay on Ultram long-term. An Rx provided for Sheri to use as needed for breakthrough pain Follow-up with house physician within 24 to 48 hours Return to the ED for any new or worsening symptoms Pending Studies at Discharge: No Stand-Alone Forms: My [facility] Skilled Items Patient informed of condition?: Yes DNR: Yes Discharge Level of Care: Skilled Communicable Disease: No Discharge Prognosis: Stable Lines: None Urinary Catheter: No Medications and DC Order Prescriptions: New tramadol 50 mg Tablet 50 mg PO BID Qty: 30 RF: 0 hydrocodone-acetaminophen 5-325 mg tablet 1 tab PO Q4H PRN (Reason: pain) Qty: 12 RF: 0 Continued propafenone 150 mg tablet 150 mg PO Q8H Qty: 90 RF: 1 melatonin 5 mg tablet 5 mg PO HS RF: 0 cholecalciferol (vitamin D3) 5,000 unit capsule 5,000 units PO QAM RF: 0 levothyroxine 50 mcg tablet 50 mcg PO DAILYBB RF: 0 acetaminophen [Tylenol Extra Strength] 500 mg Tablet 500 mg PO QID PRN (Reason: Pain) RF: 0 escitalopram oxalate 5 mg tablet 5 mg PO QAM RF: 0 Tradjenta 5 mg tablet 5 mg PO QAM RF: 0 thiamine HCl (vitamin B1) 100 mg Tablet 100 mg PO QAM Qty: 30 RF: 0 cyanocobalamin (vitamin B-12) 500 mcg Tablet 1,000 mcg PO QAM Qty: 30 RF: 2 pantoprazole 40 mg Tablet,Delayed Release (Dr/Ec) 40 mg PO BID Qty: 60 RF: 1 sucralfate [Carafate] 1 gram tablet 1 g PO QID 30 Days Qty: 120 RF: 0 magnesium oxide 400 mg magnesium capsule 400 mg PO DAILY Qty: 30 RF: 0 ferrous sulfate 325 mg (65 mg iron) Tablet 325 mg PO QDL RF: 0 metoprolol tartrate 25 mg Tablet 12.5 mg PO BID RF: 0 Senna Plus 8.6-50 mg Capsule 2 tab-cap PO HS RF: 0 Discontinued warfarin 2 mg tablet 2 mg PO HS RF: 0 Discharge Orders: Discharge Order (Routine); Ordered 03/11/22 Ordered By: Carmelina Arias Admission Data Admit Date/Time: 03/10/22 05:38 Attending Provider: Reuben Pittman Admit Provider: Alfonso Zarate Primary Care Provider: Ofelia Barron Other Providers: Paco Johnson ; Tina Royse [place] Other Interventions: Discharge Summary Assessment (RN) Last Done: 03/11/22 14:31 Supervising Physician Co-Signing Physician Notes Patient seen and examined at bedside. During face to face encounter, obtained phsyical examination and discussed hospital course. I discussed discharge plan with NATALIIA Arias and Patient. I reviewed above note and agree with it. Patient with a pelvic fracture. Will be discharged on pain medicine as above. No surgical intervention at this time. Coding Level of Care Code D/C DAY MANAGEMENT >30 MINS Diagnoses Pelvic fracture S32.9XXA Hematoma of right parietal scalp S00.03XA Leukocytosis D72.829 Recurrent falls R29.6
== END 2022-03-11 16:05 | DRG 543 ==
LOC: ED 01:21 → SUATTDRO 05:38 → 3N 05:38

== ENCOUNTER 2022-04-30 12:07 | Inpatient (IN) ==
[2022-04-30] MEDS ORDERED: fentaNYL citrate 100 MCG/2 ML VIAL IM ONE (12:36)
[2022-04-30] MEDS ORDERED: ONDANSETRON 4 MG OD TAB PO STA (12:36)
--- NOTE | 2022-04-30 12:43 | Emergency Department Note ---
History of Present Illness General Chief complaint: Hip Pain Stated complaint: Fall Time Seen by Provider: 04/30/22 12:24 Source: patient History of Present Illness Provider complaint: Hip pain Onset (ago): hour(s) Location: hip and left Severity: severe Pain Consistency: + constant Maximum Pain Intensity: 8 Quality: + sharp Exacerbated By: + movement Associated symptoms: no chest pain, no cough, no fever/chills, no headaches, no nausea/vomiting, no shortness of breath or no syncope This is an 87-year-old female sent from [facility] for hip pain after a fall. The patient does not know how she fell but it was reported she injured her left hip in the fall. She denies any other injury. She has had no head injury or neck pain. She denies any back pain, fever, cough or cold symptoms, abdominal pain, vomiting, diarrhea or urinary symptoms. She complains of pain to the left hip. She rates an 8 out of 10 in severity. It is sharp in nature. It is worse with movement. She appears somewhat confused but answers all questions if they are simple questions. I did attempt to call her daughter as well as the staff at [facility] for more information but they were unavailable. It is noted in her chart that she is a hospice patient and comfort care only. Home Medications Medication Instructions Recorded Confirmed Type cholecalciferol (vitamin D3) 125 5,000 units PO QAM 08/02/19 03/10/22 History mcg (5,000 unit) capsule melatonin 5 mg tablet 5 mg PO HS 08/02/19 03/10/22 History propafenone 150 mg tablet 150 mg PO Q8H #90 tabs 12/23/21 03/10/22 Rx acetaminophen 500 mg tablet 500 mg PO QID PRN Pain 01/16/22 03/10/22 History (Tylenol Extra Strength) escitalopram oxalate 5 mg tablet 5 mg PO QAM 01/16/22 03/10/22 History levothyroxine 50 mcg tablet 50 mcg PO DAILYBB 01/16/22 03/10/22 History linagliptin 5 mg tablet (Tradjenta) 5 mg PO QAM 01/16/22 03/10/22 History cyanocobalamin (vitamin B-12) 500 1,000 mcg PO QAM #30 tabs 01/19/22 03/10/22 Rx mcg tablet pantoprazole 40 mg tablet,delayed 40 mg PO BID #60 tabs 01/19/22 03/10/22 Rx release sucralfate 1 gram tablet (Carafate) 1 g PO QID 30 days #120 tabs 01/19/22 03/10/22 Rx thiamine HCl (vitamin B1) 100 mg 100 mg PO QAM #30 tabs 01/19/22 03/10/22 Rx tablet magnesium oxide 400 mg PO DAILY #30 caps 01/20/22 03/10/22 Rx ferrous sulfate 325 mg (65 mg 325 mg PO QDL 03/10/22 03/10/22 History iron) tablet metoprolol tartrate 25 mg tablet 12.5 mg PO BID 03/10/22 03/10/22 History sennosides 8.6 mg-docusate sodium 2 tab-cap PO HS 03/10/22 03/10/22 History 50 mg capsule (Senna Plus) hydrocodone 5 mg-acetaminophen 325 1 tab PO Q4H PRN pain #12 tabs 03/11/22 Rx mg tablet tramadol 50 mg tablet 50 mg PO BID #30 tabs 03/11/22 Rx Allergies Allergy/AdvReac Type Severity Reaction Status Date / Time Iodinated Contrast Media Allergy Severe Hives Verified 03/10/22 01:42 Penicillins Allergy Intermediate HIVES Verified 03/10/22 01:42 Past Med/Surg History Medical History Acute GI bleeding Anemia Anticoagulant long-term use Anxiety Aortic stenosis, severe CAD (coronary artery disease) Chronic diastolic congestive heart failure CKD (chronic kidney disease) CVA (cerebral vascular accident) Dementia Dyslipidemia Essential hypertension GERD without esophagitis H/O non-ST elevation myocardial infarction (NSTEMI) History of pneumonia Hypothyroidism Mild cognitive impairment Paroxysmal atrial fibrillation Recurrent falls TIA (transient ischemic attack) Type 2 diabetes mellitus Urinary incontinence Surgical History History of hysterectomy Hx of CABG S/P cardiac pacemaker procedure S/P lumpectomy of breast Status post carotid surgery L CEA Status post cholecystectomy Family History Family/Other No problems noted. Brother Cardiac disorder Stroke Hypertension Lung disease Mother Stroke Father Stroke Sister Lung cancer Malignant neoplasm of urinary bladder Denies family history of Colon cancer Ovarian cancer Prostate cancer Myocardial infarction Breast cancer Social History Smoking Status: Current some day smoker Age Started Using Tobacco: 17; Age Quit Using Tobacco: 29; packs per day: 0.5; Second Hand Exposure: Yes; Hx Alcohol Use: Yes Alcohol type: beer Hx Substance Use: No Preferred Language: Jordanian Communication Ability: Impaired Visual Impairment: Limited Hearing Ability: Use of Hearing Aid Heel Scourer Required: No Beliefs That Will Affect Care: None marital status: Single Current Living Situation: Personal Care Facility Current Living Situation Comment: [facility] current occupational status: retired How many Children do You have: 2 Feels Safe at Home: Yes Childhood Exposure to Second-Hand Smoke: Yes caffeine: Yes during the past year weight has: remained stable Dental Care, Regularly: Yes Physical Activity Frequency: Other Physical Activity Frequency Comment: limited by phusical condition Seatbelt Use: always Sunscreen Use: No Assistive Devices: Walker Review of Systems See HPI for pertinent positives & negatives. and A total of 10 systems reviewed and were otherwise negative (Answer simple yes and no questions.) Physical Exam Vital Signs Vital Signs - 24 hr 04/30/22 12:21 04/30/22 12:31 04/30/22 13:00 Temperature 36.7 C Temperature Source Oral Pulse Rate 65 65 65 Pulse Rhythm Regular Pulse Strength Normal Respiratory Rate 16 15 14 Respiratory Effort / Characteristics Non-Labored Spontaneous Respiratory Depth Normal Respiratory Pattern Regular Blood Pressure 178/69 H 201/71 H 198/77 H Blood Pressure Mean 105 114 117 Blood Pressure Position Lying Pulse Oximetry 96 96 Oxygen Delivery Method Room Air Sepsis Recent Fever Within 48 Hours No Sepsis New/Unexplained Change in Mental Status N/A Sepsis Action Taken by Nursing No Action Required 04/30/22 13:30 04/30/22 14:00 Temperature Temperature Source Pulse Rate 65 65 Pulse Rhythm Pulse Strength Respiratory Rate 14 18 Respiratory Effort / Characteristics Respiratory Depth Respiratory Pattern Blood Pressure 168/84 H 203/77 H Blood Pressure Mean 112 119 Blood Pressure Position Pulse Oximetry Oxygen Delivery Method Sepsis Recent Fever Within 48 Hours Sepsis New/Unexplained Change in Mental Status Sepsis Action Taken by Nursing Constitutional: Vital signs reviewed. Eyes: Pupils are equal round reactive to light. Conjunctiva are noninjected. ENT: Pharynx is clear without erythema or exudate. Mucous membranes are moist. Neck supple without meningeal signs. Respiratory: Clear to auscultation bilaterally. Breath sounds are equal bilaterally. Cardiovascular: Regular rate and rhythm. No rubs or gallops. GI: Soft, nondistended and nontender. Bowel sounds are present. Musculoskeletal: Tenderness to the left hip. Her knee is bent at 90 degrees under the right leg. Normal distal pulse. Integumentary: No cyanosis. or jaundice. Neurological: The patient is awake and alert. Appears confused. Motor and sensation are intact in the left foot. Psychiatric: Normal affect. Course Administered Medications Discontinued Medications Fentanyl Citrate (Fentanyl Citrate 100 Mcg/2 Ml Vial) 50 mcg IM NOW ONE Stop: 04/30/22 12:37 Last Admin: 04/30/22 12:43 Dose: 50 mcg Documented By: GEORGE Ondansetron HCl (Ondansetron 4 Mg Od Tab) 4 mg PO NOW STA Stop: 04/30/22 12:37 Last Admin: 04/30/22 12:43 Dose: 4 mg Documented By: GEORGE Medical Decision Making Differential Diagnosis Pelvic fracture, hip fracture, contusion, strain, hip dislocation Medical Records Attestation: I reviewed the patient's medical records. I did perform a limited focused review of portions of the patient's old chart on the electronic medical record. The patient was admitted in February of this year for a nonoperative pelvic fracture. Home Medications Current Medication List: was personally reviewed by me Laboratory Data Result diagrams: 04/30/22 13:55 04/30/22 13:55 Lab Results 04/30/22 04/30/22 04/30/22 Range/Units 13:49 13:50 13:55 WBC 14.21 H (4.8-10.8) K/ul RBC 4.11 (3.93-5.22) M/uL Hgb 12.6 (12.0-16.0) g/dl Hct 37.4 (34.1-44.9) % MCV 91.0 (80.0-100.0) fL MCH 30.7 (25.0-34.0) pg MCHC 33.7 (32.0-36.0) g/dL RDW Std Deviation 46.6 H (36.4-46.3) fL RDW Coeff of Charisma 13.8 (11.5-14.5) % Plt Count 240 (130-400) K/uL MPV 10.9 (9.4-12.3) fL Immature Gran % (Auto) 0.6 % Neut % (Auto) 83.9 % Lymph % (Auto) 9.5 % Starr % (Auto) 3.7 % Eos % (Auto) 1.7 % Baso % (Auto) 0.6 % Neut # (Auto) 11.93 H (1.4-6.5) K/uL Lymph # (Auto) 1.35 (1.2-3.4) K/uL Starr # (Auto) 0.52 (0.24-0.82) K/uL Eos # (Auto) 0.24 (0-0.50) K/uL Baso # (Auto) 0.08 (0-0.2) K/uL Immature Gran # (Auto) 0.09 H (0.00-0.02) K/uL PT (9.0-12.0) Seconds INR (0.9-1.1) APTT (21.0-31.0) Seconds PTT Ratio Sodium (136-145) mmol/L Potassium (3.5-5.1) mmol/L Chloride (98-107) mmol/L Carbon Dioxide (21-32) mmol/L Anion Gap (3-11) BUN (6-23) mg/dl Creatinine (0.6-1.2) mg/dl Est Cr Clr Drug Dosing ml/min Est GFR ( Amer) ml/min Est GFR (Non-Af Amer) ml/min BUN/Creatinine Ratio (10-20) Glucose (70-99(Fasting)) mg/dl Calcium (8.5-10.1) mg/dl Total Bilirubin (0.2-1.0) mg/dl AST (13-39) U/L ALT (7-52) U/L Alkaline Phosphatase (34-104) U/L Total Protein (6.0-8.3) gm/dl Albumin (3.4-5.0) gm/dl Globulin (2.5-4.0) gm/dl Albumin/Globulin Ratio (0.9-2) Urine Color Dark Yellow Urine Appearance Cloudy A (Clear) Urine pH 5.0 (4.5-7.5) Ur Specific [place] 1.025 (1.000-1.030) Urine Protein 2+ H (Negative) Urine Glucose (UA) Negative (Negative) Urine Ketones Trace H (Negative) Urine Blood Trace H (Negative) Urine Nitrite Positive A (Negative) Urine Bilirubin Negative (Negative) Urine Urobilinogen Negative (Negative) Ur Leukocyte Esterase 2+ H (Negative) Urine WBC (Auto) >30 H (0-5) /hpf Urine RBC (Auto) 0-4 (0-4) /hpf U Hyaline Cast (Auto) 1-5 (0-5) /lpf U Epithel Cells (Auto) >30 H (0-5) /lpf Urine Bacteria (Auto) 4+ H (Negative) Urine Yeast Not Reportable SARS-CoV-2, RNA, NAAT NEGATIVE (NEGATIVE) 04/30/22 04/30/22 Range/Units 13:55 13:55 WBC (4.8-10.8) K/ul RBC (3.93-5.22) M/uL Hgb (12.0-16.0) g/dl Hct (34.1-44.9) % MCV (80.0-100.0) fL MCH (25.0-34.0) pg MCHC (32.0-36.0) g/dL RDW Std Deviation (36.4-46.3) fL RDW Coeff of Charisma (11.5-14.5) % Plt Count (130-400) K/uL MPV (9.4-12.3) fL Immature Gran % (Auto) % Neut % (Auto) % Lymph % (Auto) % Starr % (Auto) % Eos % (Auto) % Baso % (Auto) % Neut # (Auto) (1.4-6.5) K/uL Lymph # (Auto) (1.2-3.4) K/uL Starr # (Auto) (0.24-0.82) K/uL Eos # (Auto) (0-0.50) K/uL Baso # (Auto) (0-0.2) K/uL Immature Gran # (Auto) (0.00-0.02) K/uL PT 11.0 (9.0-12.0) Seconds INR 1.0 (0.9-1.1) APTT 25.1 (21.0-31.0) Seconds PTT Ratio 0.9 Sodium 134 L (136-145) mmol/L Potassium 4.2 (3.5-5.1) mmol/L Chloride 100 (98-107) mmol/L Carbon Dioxide 27 (21-32) mmol/L Anion Gap 7 (3-11) BUN 21 (6-23) mg/dl Creatinine 0.88 (0.6-1.2) mg/dl Est Cr Clr Drug Dosing 34.3 ml/min Est GFR ( Amer) 68.0 ml/min Est GFR (Non-Af Amer) 58.7 ml/min BUN/Creatinine Ratio 23.9 H (10-20) Glucose 181 H (70-99(Fasting)) mg/dl Calcium 9.4 (8.5-10.1) mg/dl Total Bilirubin 0.5 (0.2-1.0) mg/dl AST 14 (13-39) U/L ALT 8 (7-52) U/L Alkaline Phosphatase 102 (34-104) U/L Total Protein 7.1 (6.0-8.3) gm/dl Albumin 4.1 (3.4-5.0) gm/dl Globulin 3.0 (2.5-4.0) gm/dl Albumin/Globulin Ratio 1.4 (0.9-2) Urine Color Urine Appearance (Clear) Urine pH (4.5-7.5) Ur Specific [place] (1.000-1.030) Urine Protein (Negative) Urine Glucose (UA) (Negative) Urine Ketones (Negative) Urine Blood (Negative) Urine Nitrite (Negative) Urine Bilirubin (Negative) Urine Urobilinogen (Negative) Ur Leukocyte Esterase (Negative) Urine WBC (Auto) (0-5) /hpf Urine RBC (Auto) (0-4) /hpf U Hyaline Cast (Auto) (0-5) /lpf U Epithel Cells (Auto) (0-5) /lpf Urine Bacteria (Auto) (Negative) Urine Yeast SARS-CoV-2, RNA, NAAT (NEGATIVE) Imaging Data Radiologist's Impression: Hip/Pelvis X-Ray 04/30/22 12:36 XR hip LT 2V w pelvis CLINICAL HISTORY: Fall. Left hip pain. COMPARISON STUDY: Pelvis CT 03/10/2022. FINDINGS: There is a comminuted intertrochanteric fracture of the proximal left femur. This demonstrates medial angulation and up to 8 mm of distraction. No dislocation. There are healing displaced right pubic ring fractures again noted. The sacrum is intact. Vascular stents noted within the common iliac arteries. IMPRESSION: An acute mildly displaced and comminuted left intertrochanteric hip fracture. ACT 112: Negative or not required by law. Electronically signed by: Joseph Aggarwal M.D. 04/30/2022 1:21 PM Chest X-Ray 04/30/22 13:30 XR chest 1V portable CLINICAL HISTORY: hip fx. Evaluate cardiopulmonary status COMPARISON STUDY: 03/10/2021 TECHNIQUE: 1 view of the chest FINDINGS: Single frontal view of the chest demonstrates the heart size to be at the upper limits of normal status post previous cardiothoracic surgery. Permanent cardiac pacer is in place. The lungs are clear of alveolar opacities. There is no evidence for pleural effusion. There is no evidence for vascular congestion. There is no acute osseous pathology. IMPRESSION: 1. No acute cardiopulmonary disease. ACT 112: Negative or not required by law. Electronically signed by: Tucker Lopes M.D. 04/30/2022 2:11 PM ECG Data Attestation: I personally reviewed and interpreted this ECG as follows: Indication: + other (Fall) Rate (beats per minute): 66 Rhythm: + other (Atrial paced rhythm) ECG Intervals/blocks: + Left anterior fascicular block and + Right Bundle branch block ECG ST segments: + T-wave inversions ECG Findings: no PVCs Comparison ECG Date: from (March 25, 2022) Change: no significant change MDM Narrative I did evaluate the patient as noted above. I did obtain history from the patient. She is, however, demented and so history is not completely reliable. I did obtain additional history from Carmelina who works at [facility] as well as her daughter Lashawn Redmond. Apparently the patient had an u nwitnessed fall. When the staff asked her she initially stated that she hit her head. She told me the opposite. She states she has no headache. Her daughter states she is on hospice because she has severe aortic valve problems as well as severe dementia. She was unclear if there was a terminal condition causing her to be in hospice. I did explain that the patient did have a hip fracture and she was unaware if the patient had ever seen an orthopedic physician before. She did have a pelvic fracture in February which was nonoperable. She did have a further discussion with her family and stated that she would like the patient admitted for evaluation of the hip for possible surgical repair if she is able. She was agreeable to blood work and further x-rays but when I told her about the potential for head injury she stated that she did not wish to have a CT scan done. She stated that if there was any intracranial abnormality she would not want anything done for it and so declined CT scanning. I did reassess the patient and she continues to deny any neck or head pain. Initially I did treat the patient with 50 mcg of fentanyl IM and Zofran ODT. IV access was established. I did place an order for continuous cardiac monitoring. The monitor showed a paced rhythm at a rate of 66 bpm. I did order and personally review the patient's 12-lead EKG as described above. She has an atrial paced rhythm. I did order and personally reviewed the images of the patient's x-rays as described above. Chest x-ray is unremarkable. Pelvic and hip x-ray shows an intertrochanteric left hip fracture. I did order a urine analysis. She does appear to have a UTI. I did treat the patient with Rocephin IV. Previous urine cultures show casillas sensitive E. coli. I did order and review the patient's blood work as noted in the electronic medical record. CBC demonstrates a white count of 14. She is not anemic or thrombocytopenic. Coags are unremarkable. CMP is unremarkable other than a sodium of 134 and glucose of 181. Screening for COVID-19 is negative. I did discuss the case with the hospitalist and rehabilitation caseworker. I did discuss case with Dr. Silver of orthopedics who will evaluate t he patient in the hospital. Impression & Plan Closed left hip fracture, Fall, Acute UTI Discharge Plan Visit Data Chief Complaint: Hip Pain Stated Complaint: Fall ED Provider: Chandu Myrick Discharge Problem: Closed left hip fracture, Fall, Acute UTI Forms Stand Alone Forms: My [facility] Prescriptions Prescriptions: No Action propafenone 150 mg tablet 150 mg PO Q8H Qty: 90 1RF melatonin 5 mg tablet 5 mg PO HS cholecalciferol (vitamin D3) 5,000 unit capsule 5,000 units PO QAM levothyroxine 50 mcg tablet 50 mcg PO DAILYBB Rx Instructions: TAKE 1 TABLET BY MOUTH ONCE DAILY acetaminophen [Tylenol Extra Strength] 500 mg Tablet 500 mg PO QID PRN (Reason: Pain) escitalopram oxalate 5 mg tablet 5 mg PO QAM Tradjenta 5 mg tablet 5 mg PO QAM thiamine HCl (vitamin B1) 100 mg Tablet 100 mg PO QAM Qty: 30 0RF cyanocobalamin (vitamin B-12) 500 mcg Tablet 1,000 mcg PO QAM Qty: 30 2RF pantoprazole 40 mg Tablet,Delayed Release (Dr/Ec) 40 mg PO BID Qty: 60 1RF sucralfate [Carafate] 1 gram tablet 1 g PO QID 30 Days Qty: 120 0RF magnesium oxide 400 mg magnesium capsule 400 mg PO DAILY Qty: 30 0RF ferrous sulfate 325 mg (65 mg iron) Tablet 325 mg PO QDL metoprolol tartrate 25 mg Tablet 12.5 mg PO BID Rx Instructions: HOLD IF SBP <95 OR HR <60 Senna Plus 8.6-50 mg Capsule 2 tab-cap PO HS tramadol 50 mg Tablet 50 mg PO BID Qty: 30 0RF Rx Instructions: take twice a day for a week and recommend changing to once a day (in the am) for a week and then as needed hydrocodone-acetaminophen 5-325 mg tablet 1 tab PO Q4H PRN (Reason: pain) Qty: 12 0RF Rx Instructions: initial therapy Referrals Referrals: Kenna Knapp [Primary Care Provider] -
--- NOTE | 2022-04-30 13:22 | XRay Report ---
XR hip LT 2V w pelvis CLINICAL HISTORY: Fall. Left hip pain. COMPARISON STUDY: Pelvis CT 03/10/2022. FINDINGS: There is a comminuted intertrochanteric fracture of the proximal left femur. This demonstra chilango medial angulation and up to 8 mm of distraction. No dislocation. There are healing displaced righ t pubic ring fractures again noted. The sacrum is intact. Vascular stents noted within the common lalita ac arteries. IMPRESSION: An acute mildly displaced and comminuted left intertrochanteric hip fracture. ACT 112: Negative or not required by law. Electronically signed by: Joseph Aggarwal M.D. 04/30/2022 1:21 PM
--- NOTE | 2022-04-30 14:13 | XRay Report ---
XR chest 1V portable CLINICAL HISTORY: hip fx. Evaluate cardiopulmonary status COMPARISON STUDY: 03/10/2021 TECHNIQUE: 1 view of the chest FINDINGS: Single frontal view of the chest demonstrates the heart size to be at the upper limits of normal stat us post previous cardiothoracic surgery. Permanent cardiac pacer is in place. The lungs are clear of alveolar opacities. There is no evidence for pleural effusion. There is no evidence for vascular shane estion. There is no acute osseous pathology. IMPRESSION: 1. No acute cardiopulmonary disease. ACT 112: Negative or not required by law. Electronically signed by: Tucker Lopes M.D. 04/30/2022 2:11 PM
[2022-04-30 14:14] LABS: Basophils # (auto) 0.08 K/uL (0-0.2); Basophils % (auto) 0.6 %; Eosinophils # (auto) 0.24 K/uL (0-0.50); Eosinophils % (auto) 1.7 %; Hematocrit (blood only) 37.4 % (34.1-44.9); Hemoglobin 12.6 g/dl (12.0-16.0); Immature Granulocytes # (auto) 0.09 K/uL (0.00-0.02); Immature Granulocytes % (auto) 0.6 %; Lymphocytes # (auto) 1.35 K/uL (1.2-3.4); Lymphocytes % (auto) 9.5 %; Mean Corpuscular Hemoglobin 30.7 pg (25.0-34.0); Mean Corpuscular Hgb Conc 33.7 g/dL (32.0-36.0); Mean Platelet Volume 10.9 fL (9.4-12.3); Monocytes # (auto) 0.52 K/uL (0.24-0.82); Monocytes % (auto) 3.7 %; Neutrophils # (auto) 11.93 K/uL (1.4-6.5); Neutrophils % (auto) 83.9 %; Platelet Count 240 K/uL (130-400); RDW Coefficient of Variation 13.8 % (11.5-14.5); RDW Standard Deviation 46.6 fL (36.4-46.3); Red Blood Count 4.11 M/uL (3.93-5.22); White Blood Count 14.21 K/ul (4.8-10.8)
[2022-04-30 14:18] LABS: Appearance Urine Cloudy (Clear); Bacteria Urine Automated 4+ (Negative); Bilirubin Urine Negative (Negative); Blood Urine Trace (Negative); Color Urine Dark Yellow; Epithelial Cell Urine Auto >30 /lpf (0-5); Glucose Urine UA Negative (Negative); Ketones Urine Trace (Negative); Leukocyte Esterase Urine 2+ (Negative); Nitrite Urine Positive (Negative); Protein Urine 2+ (Negative); RBC Urine Automated 0-4 /hpf (0-4); Specific Gravity Urine 1.025 (1.000-1.030); Urobilinogen Urine Negative (Negative); WBC Urine Automated >30 /hpf (0-5)
[2022-04-30 14:26] LABS: Partial Thromboplastin Ratio 0.9; Partial Thromboplastin Time 25.1 Seconds (21.0-31.0)
[2022-04-30 14:41] LABS: Albumin Globulin Ratio 1.4 (0.9-2); Albumin Level 4.1 gm/dl (3.4-5.0); BUN Creatinine Ratio 23.9 (10-20); Bilirubin,Total 0.5 mg/dl (0.2-1.0); Calcium 9.4 mg/dl (8.5-10.1); Creatinine Clr Calc Pharmacy 34.3 ml/min; Est GFR (Non-African American) 58.7 ml/min; Potassium 4.2 mmol/L (3.5-5.1); Total Protein 7.1 gm/dl (6.0-8.3)
[2022-04-30] MEDS ORDERED: cefTRIAXone SODIUM 2,000 MG/70 ML BAG IV STA (15:08)
--- NOTE | 2022-04-30 15:22 | Electrocardiogram Report ---
Test Reason : Blood Pressure : / mmHG Vent. Rate : 066 BPM Atrial Rate : 066 BPM P-R Int : 200 ms QRS Dur : 162 ms QT Int : 506 ms P-R-T Axes : 000 -46 084 degrees QTc Int : 530 ms Poor data quality, interpretation may be adversely affected Atrial-paced rhythm Right bundle branch block Left anterior fascicular block Bifascicular block Possible Inferior infarct , age undetermined T wave abnormality, consider lateral ischemia Abnormal ECG When compared with ECG of 25-MAR-2022 09:34, Electronic atrial pacemaker has replaced Electronic ventricular pacemaker Confirmed by Darrell Reyes ([id number]) on 04/30/2022 3:21:48 PM Referred By: REFERRED SELF Confirmed By:Prasanna Reyes
--- NOTE | 2022-04-30 15:42 | History & Physical Report ---
Date of Service April 30, 2022 Assessment & Plan (1) Closed left hip fracture: Plan: Acute following fall - appreciate surgical evaluation - pending the above evaluation will assist in planning for goals of care with family - Multi-tiered pain control with rescue Narcan available - TEDs, SCDs, for VTE prophylaxis - PT/OT eval no weight bearing left extremity- evaluate following orthopaedics evaluation (2) Acute UTI: Plan: UTI uncomplicated - continue rocephin 1 GM IV 24 hours - await culture (3) Fracture, pelvis closed: Plan: Hx of with fall in February (4) Esophagitis: Plan: Continue with PPI Continue with Crafate (5) Aortic stenosis, severe: Plan: Gradient in 2020 was 25mm HG - supportive care - LR 75 ml/hour - BP control - Rythm/rate control (6) Anemia: Plan: Chronic hold her B12 and her ferrous sulfate (7) Hypothyroidism: Plan: Continue Synthroid 50mcg/day (8) Paroxysmal atrial fibrillation: Plan: Continue propafenone - no anticoagulation with history of GIB and falls - DDDR pacemaker- rate 65, upper limit track 110 (9) Type 2 diabetes mellitus: Plan: Goal < 180mg/dl - aspart sliding scale for now - hold Tradjenta History of Present Illness Primary Care Provider: Kenna Knapp 87 YOF with severe dementia, Aortic Stenosis, CAD with CABG frequent falls, DMII, hypothyroidism, Anxiety, PAF(on propafenone- no longer on Warfarin), GERD/esophagitis, Pacemaker insertion, resident at [facility]. Patient was brought to the EMD today after being found on the floor at [facility]. It is unsure how she got there. The patient was previously reported to be on hospice for her dementia and . In the EMD the patient had routine labs performed to include UA as well as imaging of her hips and pelvis. She is noted to have An acute mildly displaced and comminuted left intertrochanteric hip fracture. Currently awaiting Orthopaedics evaluation. She is also noted to have UTI and was started on Rocephin - she has grown casillas-sensitive E.COLI in the past. Patient has been on hospice for her dementia and - family would like to keep her comfortable, but would appreciate a surgical evaluation to see if she would be a candidate for any intervention that would promote pain control and mobility. If this is not the case then the daughter Lashawn understands that if not a surgical candidate with prolonged immobility and decrease in function that her mothers mortality increases. Appreciate Orthopaedics assessment. Patient will be observed for evaluation, pain control, treatment of UTI. She had previous fall in February 2022- with fracture of her pelvis and sacrum. Repo rt from [facility] for this fall is that discussion with family in further imaging of head or cervical spine was deferred. Her last ECHO was 07/08 with EF 55-60% with borderline severe peak gradient 25. cath 2015- She has Left main disease with restenosis, LAD total occlusion proximally, circ with old occlusive disease, and RCA total occlusion. Previous SVG graft to LAD patent, but LAD distal ws 80% stenotic. GEORGES to LAD was occluded. Estimated risk or probability of SC is 6.6%, Revised cardiac risk of estimated risk of adverse outcome is HIGH risk and estimated rate of: SC, pulmonary edema, Vfib, Cardiac Arrest or heart block is > 11%. Medically HIGH risk for surgical procedure. Allergies Allergy/AdvReac Type Severity Reaction Status Date / Time Iodinated Contrast Media Allergy Severe Hives Verified 04/30/22 17:17 Penicillins Allergy Intermediate HIVES Verified 04/30/22 17:17 Home Medications Medication Instructions Recorded Confirmed Type cholecalciferol (vitamin D3) 125 5,000 units PO QAM 08/02/19 04/30/22 History mcg (5,000 unit) capsule melatonin 5 mg tablet 5 mg PO HS 08/02/19 04/30/22 History propafenone 150 mg tablet 150 mg PO Q8H #90 tabs 12/23/21 04/30/22 Rx acetaminophen 500 mg tablet 500 mg PO Q8 01/16/22 04/30/22 History (Tylenol Extra Strength) levothyroxine 50 mcg tablet 50 mcg PO DAILYBB 01/16/22 04/30/22 History metoprolol tartrate 25 mg tablet 12.5 mg PO BID 03/10/22 04/30/22 History sennosides 8.6 mg-docusate sodium 2 tab-cap PO HS 03/10/22 04/30/22 History 50 mg capsule (Senna Plus) Morphine Sulf 100mg/5ml 5 mg sublingual .Q2HR PRN Severe 04/30/22 04/30/22 History Pain (Scale Score 7-10) acetaminophen 650 mg rectal 650 mg NV Q4H PRN Fever Or Pain 04/30/22 04/30/22 History suppository cyanocobalamin (vitamin B-12) 1,000 mcg PO DAILY 04/30/22 04/30/22 History 1,000 mcg tablet (Vitamin B-12) fentanyl 12 mcg/hr transdermal 1 patch topical [id number] 04/30/22 04/30/22 History patch hyoscyamine sulfate 0.125 mg tablet 0.125 mg PO Q4 PRN .RESP 04/30/22 04/30/22 History SECRETIONS/NOISY BREATHING lorazepam 0.5 mg tablet 0.5 mg sublingual Q4 PRN 04/30/22 04/30/22 History .RESTLESSNESS/INSOMNIA magnesium hydroxide 400 mg/5 mL 30 ml PO .DAILY UD PRN Constipation 04/30/22 04/30/22 History oral suspension (Milk of Magnesia) oxycodone 5 mg tablet 5 mg PO Q4H PRN .MILD TO MOD PAIN 04/30/22 04/30/22 History pantoprazole 40 mg tablet,delayed 40 mg PO DAILY 04/30/22 04/30/22 History release thiamine HCl (vitamin B1) 100 mg 100 mg PO DAILY 04/30/22 04/30/22 History tablet Past Med/Surg History Medical History Acute GI bleeding Anemia Anticoagulant long-term use Anxiety Aortic stenosis, severe CAD (coronary artery disease) Chronic diastolic congestive heart failure CKD (chronic kidney disease) CVA (cerebral vascular accident) Dementia Dyslipidemia Essential hypertension GERD without esophagitis H/O non-ST elevation myocardial infarction (NSTEMI) History of pneumonia Hypothyroidism Mild cognitive impairment Paroxysmal atrial fibrillation Recurrent falls TIA (transient ischemic attack) Type 2 diabetes mellitus Urinary incontinence Surgical History History of hysterectomy Hx of CABG S/P cardiac pacemaker procedure S/P lumpectomy of breast Status post carotid surgery L CEA Status post cholecystectomy Family History Family/Other No problems noted. Brother Cardiac disorder Stroke Hypertension Lung disease Mother Stroke Father Stroke Sister Lung cancer Malignant neoplasm of urinary bladder Denies family history of Colon cancer Ovarian cancer Prostate cancer Myocardial infarction Breast cancer Social History Smoking Status: Current some day smoker Age Started Using Tobacco: 17; Age Quit Using Tobacco: 29; packs per day: 0.5; Second Hand Exposure: Yes; Hx Alcohol Use: Yes Alcohol type: beer Hx Substance Use: No Preferred Language: Latvian Communication Ability: Impaired Visual Impairment: Limited Hearing Ability: Use of Hearing Aid Salmon Troll Fisher Required: No Beliefs That Will Affect Care: None marital status: Single Current Living Situation: Personal Care Facility Current Living Situation Comment: [facility] current occupational status: retired How many Children do You have: 2 Feels Safe at Home: Yes Childhood Exposure to Second-Hand Smoke: Yes caffeine: Yes during the past year weight has: remained stable Dental Care, Regularly: Yes Physical Activity Frequency: Other Physical Activity Frequency Comment: limited by phusical condition Seatbelt Use: always Sunscreen Use: No Assistive Devices: Walker Review of Systems Review of Systems: REVIEW OF SYSTEMS: Unable to obtain as patient has severe dementia Physical Exam Physical Exam: PHYSICAL EXAM: General: awake, alert, oriented to person only- severely demented answers most questions "yes" Head: Normocephalic, atraumatic ENT: PERRL, EOMI, no pharyngeal exudate, mucous membranes dry Neuro: AAO x 1 (person), speech clear and inappropriate, strength intact bilaterally 4/5, sensation intact and equal all extremities and dermatomes Chest: equal rise and fall of the chest, no accessory muscle use, no heaves or thrills, Clear to auscultation, on room air, Cardiac: Telemetry reviewed- Vpaced, skin warm dry, cap refill <3 seconds, peripheral pulses +2 no JVD, Grade III systolic murmur S1S2, no edema GI: NABS x 4 quadrants, soft, nontender to palpation, no rebound, guarding or tenderness : Mullen placed, draining clear yellow urine Extremities: Normal inspection, no peripheral edema or erythema, calfs nontender to palpation Skin: no rash or erythema Results & Data Results & Data ([facility]) Vital Signs (Past 12 Hours) Vital Signs Temp Pulse Resp BP Pulse Ox O2 Del Method 04/30/22 14:00 65 18 203/77 H 04/30/22 13:30 65 14 168/84 H 04/30/22 13:00 65 14 198/77 H 04/30/22 12:31 65 15 201/71 H 96 04/30/22 12:21 36.7 C 65 16 178/69 H 96 Room Air Laboratory Results Laboratory Results - last 24 hr 04/30/22 04/30/22 04/30/22 13:49 13:50 13:55 WBC 14.21 H RBC 4.11 Hgb 12.6 Hct 37.4 MCV 91.0 MCH 30.7 MCHC 33.7 RDW Std Deviation 46.6 H RDW Coeff of Charisma 13.8 Plt Count 240 MPV 10.9 Immature Gran % (Auto) 0.6 Neut % (Auto) 83.9 Lymph % (Auto) 9.5 Talbot % (Auto) 3.7 Eos % (Auto) 1.7 Baso % (Auto) 0.6 Neut # (Auto) 11.93 H Lymph # (Auto) 1.35 Talbot # (Auto) 0.52 Eos # (Auto) 0.24 Baso # (Auto) 0.08 Immature Gran # (Auto) 0.09 H PT INR APTT PTT Ratio Sodium Potassium Chloride Carbon Dioxide Anion Gap BUN Creatinine Est Cr Clr Drug Dosing Est GFR ( Amer) Est GFR (Non-Af Amer) BUN/Creatinine Ratio Glucose Calcium Total Bilirubin AST ALT Alkaline Phosphatase Total Protein Albumin Globulin Albumin/Globulin Ratio Urine Color Dark Yellow Urine Appearance Cloudy A Urine pH 5.0 Ur Specific [place] 1.025 Urine Protein 2+ H Urine Glucose (UA) Negative Urine Ketones Trace H Urine Blood Trace H Urine Nitrite Positive A Urine Bilirubin Negative Urine Urobilinogen Negative Ur Leukocyte Esterase 2+ H Urine WBC (Auto) >30 H Urine RBC (Auto) 0-4 U Hyaline Cast (Auto) 1-5 U Epithel Cells (Auto) >30 H Urine Bacteria (Auto) 4+ H Urine Yeast Not Reportable SARS-CoV-2, RNA, NAAT NEGATIVE 04/30/22 04/30/22 13:55 13:55 WBC RBC Hgb Hct MCV MCH MCHC RDW Std Deviation RDW Coeff of Charisma Plt Count MPV Immature Gran % (Auto) Neut % (Auto) Lymph % (Auto) Talbot % (Auto) Eos % (Auto) Baso % (Auto) Neut # (Auto) Lymph # (Auto) Talbot # (Auto) Eos # (Auto) Baso # (Auto) Immature Gran # (Auto) PT 11.0 INR 1.0 APTT 25.1 PTT Ratio 0.9 Sodium 134 L Potassium 4.2 Chloride 100 Carbon Dioxide 27 Anion Gap 7 BUN 21 Creatinine 0.88 Est Cr Clr Drug Dosing 34.3 Est GFR ( Amer) 68.0 Est GFR (Non-Af Amer) 58.7 BUN/Creatinine Ratio 23.9 H Glucose 181 H Calcium 9.4 Total Bilirubin 0.5 AST 14 ALT 8 Alkaline Phosphatase 102 Total Protein 7.1 Albumin 4.1 Globulin 3.0 Albumin/Globulin Ratio 1.4 Urine Color Urine Appearance Urine pH Ur Specific [place] Urine Protein Urine Glucose (UA) Urine Ketones Urine Blood Urine Nitrite Urine Bilirubin Urine Urobilinogen Ur Leukocyte Esterase Urine WBC (Auto) Urine RBC (Auto) U Hyaline Cast (Auto) U Epithel Cells (Auto) Urine Bacteria (Auto) Urine Yeast SARS-CoV-2, RNA, NAAT Diagnostic Findings Hip/Pelvis X-Ray 04/30/22 12:36 XR hip LT 2V w pelvis CLINICAL HISTORY: Fall. Left hip pain. COMPARISON STUDY: Pelvis CT 03/10/2022. FINDINGS: There is a comminuted intertrochanteric fracture of the proximal left femur. This demonstrates medial angulation and up to 8 mm of distraction. No dislocation. There are healing displaced right pubic ring fractures again noted. The sacrum is intact. Vascular stents noted within the common iliac arteries. IMPRESSION: An acute mildly displaced and comminuted left intertrochanteric hip fracture. ACT 112: Negative or not required by law. Electronically signed by: Joseph Aggarwal M.D. 04/30/2022 1:21 PM Chest X-Ray 04/30/22 13:30 XR chest 1V portable CLINICAL HISTORY: hip fx. Evaluate cardiopulmonary status COMPARISON STUDY: 03/10/2021 TECHNIQUE: 1 view of the chest FINDINGS: Single frontal view of the chest demonstrates the heart size to be at the upper limits of normal status post previous cardiothoracic surgery. Permanent cardiac pacer is in place. The lungs are clear of alveolar opacities. There is no evidence for pleural effusion. There is no evidence for vascular congestion. There is no acute osseous pathology. IMPRESSION: 1. No acute cardiopulmonary disease. ACT 112: Negative or not required by law. Electronically signed by: Tucker Lopes M.D. 04/30/2022 2:11 PM Medications Administered Home Medications cholecalciferol (vitamin D3) 125 mcg (5,000 unit) capsule 5,000 units PO QAM 08/02/19 [History Confirmed 03/10/22] melatonin 5 mg tablet 5 mg PO HS 08/02/19 [History Confirmed 03/10/22] propafenone 150 mg tablet 150 mg PO Q8H #90 tabs 12/23/21 [Rx Confirmed 03/10/22] acetaminophen 500 mg tablet (Tylenol Extra Strength) 500 mg PO QID PRN Pain [History Confirmed 03/10/22] escitalopram oxalate 5 mg tablet 5 mg PO QAM 01/16/22 [History Confirmed 03/10/22] levothyroxine 50 mcg tablet 50 mcg PO DAILYBB 01/16/22 [History Confirmed 03/10/22] linagliptin 5 mg tablet (Tradjenta) 5 mg PO QAM 01/16/22 [History Confirmed 03/10/22] cyanocobalamin (vitamin B-12) 500 mcg tablet 1,000 mcg PO QAM #30 tabs 01/19/22 [Rx Confirmed 03/10/22] pantoprazole 40 mg tablet,delayed release 40 mg PO BID #60 tabs 01/19/22 [Rx Confirmed 03/10/22] sucralfate 1 gram tablet (Carafate) 1 g PO QID 30 days #120 tabs 01/19/22 [Rx Confirmed 03/10/22] thiamine HCl (vitamin B1) 100 mg tablet 100 mg PO QAM #30 tabs 01/19/22 [Rx Confirmed 03/10/22] magnesium oxide 400 mg PO DAILY #30 caps 01/20/22 [Rx Confirmed 03/10/22] ferrous sulfate 325 mg (65 mg iron) tablet 325 mg PO QDL 03/10/22 [History Confirmed 03/10/22] metoprolol tartrate 25 mg tablet 12.5 mg PO BID 03/10/22 [History Confirmed 03/10/22] sennosides 8.6 mg-docusate sodium 50 mg capsule (Senna Plus) 2 tab-cap PO HS 03/10/22 [History Confirmed 03/10/22] hydrocodone 5 mg-acetaminophen 325 mg tablet 1 tab PO Q4H PRN pain #12 tabs 03/11/22 [Rx] tramadol 50 mg tablet 50 mg PO BID #30 tabs 03/11/22 [Rx] Discontinued Medications Fentanyl Citrate (Fentanyl Citrate 100 Mcg/2 Ml Vial) 50 mcg IM NOW ONE Stop: 04/30/22 12:37 Last Admin: 04/30/22 12:43 Dose: 50 mcg Documented By: OAJackie Ceftriaxone Sodium (Rocephin) 2,000 mg in 70 mls @ 140 mls/hr IV NOW STA Stop: 04/30/22 15:37 Last Admin: 04/30/22 15:31 Dose: 140 mls/hr Documented By: BELKIS Ondansetron HCl (Ondansetron 4 Mg Od Tab) 4 mg PO NOW STA Stop: 04/30/22 12:37 Last Admin: 04/30/22 12:43 Dose: 4 mg Documented By: OAM ECG Additional Comments: Atrial-paced rhythm Right bundle branch block Left anterior fascicular block Bifascicular block Possible Inferior infarct , age undetermined T wave abnormality, consider lateral ischemia Abnormal ECG When compared with ECG of 25-MAR-2022 09:34, Electronic atrial pacemaker has replaced Electronic ventricular pacemaker ... Code Status & VTE Plan Code Status CODE: DNR/DNI VTE: SCDS, JADEN to right leg VTE Prophylaxis Plan VTE Prophylaxis will be ordered: Yes Supervising Physician Co-Signing Physician Notes I supervised EL Lares on this admission. I interviewed and examined the patient independently of him. The plan is as written in his note except for any following changes/exceptions: None 87yo F w/ hx of dementia who presents with reported mechanical fall at her [facility]. She had a prior closed pelvic fracture also due to mechanical fall. On interview, she is very pleasant, but cannot give any history. She is not in any distress during my interview and denies pain. Left hip is externally rotated and has limited ROM. Plan for ortho surgical evaluation to determine best course of action. Family is understandably interested in the patient's comfort, so this will play a role in our decision-making. PG Care Time/CCT Total # of Minutes Spent Total Time Spent with Patient: Total time spent is greater than 50% in coordination of care (as documented) at patient's floor/unit and/or counseling patient: Coding Level of Care Code 62863 Initial Inpt Care Lvl 3 Diagnoses Closed left hip fracture S72.002A Acute UTI N39.0 Fracture, pelvis closed S32.501A Encounter type: initial encounter Laterality: right Pelvic bone location: pubis Sublocation of pubis: unspecified portion of pubis Esophagitis K20.90 Aortic stenosis, severe I35.0 Anemia D64.9 Hypothyroidism E03.9 Paroxysmal atrial fibrillation I48.0 Type 2 diabetes mellitus E11.9 (1) Fracture, pelvis closed Encounter type: initial encounter Laterality: right Pelvic bone location: pubis Sublocation of pubis: unspecified portion of pubis Qualified Code(s): S32.501A - Unspecified fracture of right pubis, initial encounter for closed fracture
[2022-04-30] MEDS ORDERED: HYDROCODONE/ACETAMOPHEN 5/325MG TAB PO ONE ×2 (17:38→19:45)
[2022-04-30] MEDS ORDERED: ACETAMINOPHEN 325 MG TAB PO PRN (20:54)
[2022-04-30] MEDS ORDERED: NALOXONE HCL 0.4 MG/1 ML VIAL/CARP IV PRN (20:54)
[2022-04-30] MEDS ORDERED: LORazepam 0.5 MG TAB SL PRN (20:54)
[2022-04-30] MEDS ORDERED: GLUCOSE 40% GEL 15 GM TUBE PO PRN (20:54)
[2022-04-30] MEDS ORDERED: CARBOHYDRATES FOR HYPOGLYCEMIA PO PRN (20:54)
[2022-04-30] MEDS ORDERED: GLUCAGON FOR INJ 1 MG VIAL SQ PRN (20:54)
[2022-04-30] MEDS ORDERED: GLUCOSE 10 TAB/TUBE PO PRN (20:54)
[2022-04-30] MEDS ORDERED: DEXTROSE 50% 50 ML SYRINGE IV PRN (20:54)
[2022-04-30] MEDS ORDERED: PANTOprazole 40 MG TAB PO SCH (21:00)
--- NOTE | 2022-04-30 21:11 | Orthopedic Consultation ---
Date of Service April 30, 2022 Assessment & Plan (1) Closed left hip fracture: I called her daughter Lashawn and discussed the diagnosis and treatment options. Her daughter just wants her to be comfortable. I think it is reasonable to proceed with intramedullary nail fixation of the left hip to stabilize the f racture and help with her pain. Lashawn understands the risk, benefits, and alternatives to procedures like to proceed. Questions were answered over the phone. Time was spent describing procedure and post expectations. She will be n.p.o. past midnight tonight. She is on the surgery schedule for tomorrow. History of Present Illness Reason for Consultation: Left intertrochanteric hip fracture. Requesting Physician: . Attending Physician: Sam Abraham MD Ria is an 87-year-old female with advanced dementia. She resides at [facility]. She had an unwitnessed fall earlier today at [facility]. She was then having some hip pain. She came to the emergency room and radiographs demonstrated a left intertrochanteric hip fracture. She was admitted to the hospitalist service and orthopedics was consulted to evaluate and treat.. Allergies Allergy/AdvReac Type Severity Reaction Status Date / Time Iodinated Contrast Media Allergy Severe Hives Verified 04/30/22 17:17 Penicillins Allergy Intermediate HIVES Verified 04/30/22 17:17 Home Medications Medication Instructions Recorded Confirmed Type cholecalciferol (vitamin D3) 125 5,000 units PO QAM 08/02/19 04/30/22 History mcg (5,000 unit) capsule melatonin 5 mg tablet 5 mg PO HS 08/02/19 04/30/22 History propafenone 150 mg tablet 150 mg PO Q8H #90 tabs 12/23/21 04/30/22 Rx acetaminophen 500 mg tablet 500 mg PO Q8 01/16/22 04/30/22 History (Tylenol Extra Strength) levothyroxine 50 mcg tablet 50 mcg PO DAILYBB 01/16/22 04/30/22 History metoprolol tartrate 25 mg tablet 12.5 mg PO BID 03/10/22 04/30/22 History sennosides 8.6 mg-docusate sodium 2 tab-cap PO HS 03/10/22 04/30/22 History 50 mg capsule (Senna Plus) Morphine Sulf 100mg/5ml 5 mg sublingual .Q2HR PRN Severe 04/30/22 04/30/22 History Pain (Scale Score 7-10) acetaminophen 650 mg rectal 650 mg DE Q4H PRN Fever Or Pain 04/30/22 04/30/22 History suppository cyanocobalamin (vitamin B-12) 1,000 mcg PO DAILY 04/30/22 04/30/22 History 1,000 mcg tablet (Vitamin B-12) fentanyl 12 mcg/hr transdermal 1 patch topical [id number] 04/30/22 04/30/22 History patch hyoscyamine sulfate 0.125 mg tablet 0.125 mg PO Q4 PRN .RESP 04/30/22 04/30/22 History SECRETIONS/NOISY BREATHING lorazepam 0.5 mg tablet 0.5 mg sublingual Q4 PRN 04/30/22 04/30/22 History .RESTLESSNESS/INSOMNIA magnesium hydroxide 400 mg/5 mL 30 ml PO .DAILY UD PRN Constipation 04/30/22 04/30/22 History oral suspension (Milk of Magnesia) oxycodone 5 mg tablet 5 mg PO Q4H PRN .MILD TO MOD PAIN 04/30/22 04/30/22 History pantoprazole 40 mg tablet,delayed 40 mg PO DAILY 04/30/22 04/30/22 History release thiamine HCl (vitamin B1) 100 mg 100 mg PO DAILY 04/30/22 04/30/22 History tablet Past Med/Surg History Medical History Acute GI bleeding Anemia Anticoagulant long-term use Anxiety Aortic stenosis, severe CAD (coronary artery disease) Chronic diastolic congestive heart failure CKD (chronic kidney disease) CVA (cerebral vascular accident) Dementia Dyslipidemia Essential hypertension GERD without esophagitis H/O non-ST elevation myocardial infarction (NSTEMI) History of pneumonia Hypothyroidism Mild cognitive impairment Paroxysmal atrial fibrillation Recurrent falls TIA (transient ischemic attack) Type 2 diabetes mellitus Urinary incontinence Surgical History History of hysterectomy Hx of CABG S/P cardiac pacemaker procedure S/P lumpectomy of breast Status post carotid surgery L CEA Status post cholecystectomy Family History Family/Other No problems noted. Brother Cardiac disorder Stroke Hypertension Lung disease Mother Stroke Father Stroke Sister Lung cancer Malignant neoplasm of urinary bladder Denies family history of Colon cancer Ovarian cancer Prostate cancer Myocardial infarction Breast cancer Social History Smoking Status: Current some day smoker Age Started Using Tobacco: 17; Age Quit Using Tobacco: 29; packs per day: 0.5; Second Hand Exposure: Yes; Hx Alcohol Use: Yes Alcohol type: beer Hx Substance Use: No Preferred Language: Upper Sorbian Communication Ability: Impaired Visual Impairment: Limited Hearing Ability: Use of Hearing Aid Pond Supervisor Required: No Beliefs That Will Affect Care: None marital status: Single Current Living Situation: Personal Care Facility Current Living Situation Comment: [facility] current occupational status: retired How many Children do You have: 2 Feels Safe at Home: Yes Childhood Exposure to Second-Hand Smoke: Yes caffeine: Yes during the past year weight has: remained stable Dental Care, Regularly: Yes Physical Activity Frequency: Other Physical Activity Frequency Comment: limited by phusical condition Seatbelt Use: always Sunscreen Use: No Assistive Devices: Walker Review of Systems All systems reviewed & are unremarkable except as noted in HPI & below. Physical Exam On physical examination of the left hip, she seemed to have some pain with logroll. There are no abrasions, lesions, or lacerations of the skin. She cannot cooperate with the neurovascular examination.. Constitutional WD/WN, vitals as above Eyes PERRL, conjunctivae normal, anicteric sclerae ENMT external ear and nose normal, oropharynx normal Neck trachea midline, no thyromegaly Respiratory normal respiratory effort, lungs clear to auscultation Cardiovascular RRR, no murmur, no edema Gastrointestinal (Abdomen) normal bowel sounds, soft, nontender, no hepatosplenomegaly Skin no rashes, warm and dry Psychiatric A+Ox3, euthymic affect Results & Data Results & Data Laboratory Results . Diagnostic Findings X-rays of the left hip did show a displaced left intertrochanteric hip fracture.. PG Care Time/CCT Total # of Minutes Spent Total Time Spent with Patient: Total time spent is greater than 50% in coordination of care (as documented) at patient's floor/unit and/or counseling patient: Coding Level of Care Code 04693 Inpt Consult Level 4 (57 - DECISION FOR SURGERY) Diagnoses Closed left hip fracture S72.002A
[2022-04-30] MEDS ORDERED: DOCUSATE SODIUM/SENNA 50/8.6MG TAB PO SCH (22:00)
[2022-04-30] MEDS: ACETAMINOPHEN 500 MG TAB PO SCH (22:07)
[2022-04-30] MEDS: SUCRALFATE 1 GM TAB PO SCH (22:07)
[2022-04-30] MEDS: DOCUSATE SODIUM/SENNA 50/8.6MG TAB PO SCH (22:07)
[2022-04-30] MEDS: PROPAFENONE HCL 150 MG TABLET PO SCH (22:07)
[2022-04-30] MEDS: METOPROLOL TARTRATE 25 MG TAB PO SCH (22:07)
[2022-04-30] MEDS: traMADol HCL 50 MG TABLET PO SCH (22:07)
[2022-04-30] MEDS: MoRPHine SULFATE 2 MG/ML CARP IV PRN (22:15)
[2022-04-30] MEDS: LACTATED RINGER'S 1,000 ML IV SCH (22:19)
[2022-05-01] MEDS: INSULIN ASPART PER UNIT SC SCH ×4 (00:34→20:07)
[2022-05-01] MEDS: ACETAMINOPHEN 500 MG TAB PO SCH ×4 (05:36→22:57)
[2022-05-01] MEDS: PROPAFENONE HCL 150 MG TABLET PO SCH ×4 (05:36→22:57)
[2022-05-01] MEDS: LEVOTHYROXINE SODIUM 50 MCG TABLET PO SCH (05:36)
[2022-05-01] MEDS: SUCRALFATE 1 GM TAB PO SCH ×5 (05:36→22:56)
[2022-05-01] MEDS: MoRPHine SULFATE 2 MG/ML CARP IV PRN ×2 (05:36→10:31)
[2022-05-01 06:15] LABS: Basophils # (auto) 0.06 K/uL (0-0.2); Basophils % (auto) 0.6 %; Eosinophils # (auto) 0.04 K/uL (0-0.50); Eosinophils % (auto) 0.4 %; Hematocrit (blood only) 29.9 % (34.1-44.9); Hemoglobin 10.2 g/dl (12.0-16.0); Immature Granulocytes # (auto) 0.06 K/uL (0.00-0.02); Immature Granulocytes % (auto) 0.6 %; Lymphocytes # (auto) 1.65 K/uL (1.2-3.4); Mean Corpuscular Hemoglobin 30.5 pg (25.0-34.0); Mean Corpuscular Hgb Conc 34.1 g/dL (32.0-36.0); Mean Corpuscular Volume 89.5 fL (80.0-100.0); Mean Platelet Volume 10.6 fL (9.4-12.3); Monocytes # (auto) 1.14 K/uL (0.24-0.82); Neutrophils # (auto) 7.38 K/uL (1.4-6.5); Neutrophils % (auto) 71.4 %; Platelet Count 193 K/uL (130-400); RDW Coefficient of Variation 13.8 % (11.5-14.5); RDW Standard Deviation 44.9 fL (36.4-46.3); Red Blood Count 3.34 M/uL (3.93-5.22); White Blood Count 10.33 K/ul (4.8-10.8)
[2022-05-01 06:42] LABS: Calcium 8.9 mg/dl (8.5-10.1); Creatinine Clr Calc Pharmacy 32.9 ml/min; Est GFR (Non-African American) 58.7 ml/min; Magnesium 1.4 mg/dl (1.7-2.4); Potassium 3.9 mmol/L (3.5-5.1)
[2022-05-01 07:41] LABS: Estimated Average Glucose 131 mg/dl; Hemoglobin A1C 6.2 % (4.5-5.6)
[2022-05-01] MEDS: ESCITALOPRAM OXALATE 10 MG TAB PO SCH (08:17)
[2022-05-01] MEDS: THIAMINE HCL 100 MG TAB PO SCH (08:17)
[2022-05-01] MEDS: METOPROLOL TARTRATE 25 MG TAB PO SCH ×3 (08:17→22:56)
[2022-05-01] MEDS: traMADol HCL 50 MG TABLET PO SCH ×3 (08:17→22:56)
[2022-05-01] MEDS: PANTOprazole 40 MG TAB PO SCH (08:17)
--- NOTE | 2022-05-01 09:07 | Orthopedic Progress Note ---
Date of Service May 01, 2022 Assessment & Plan (1) Closed left hip fracture: I spoke with her daughter Lashawn and discussed surgery, including risks, benefits, alternatives to surgery. Verbal consent obtained and witnessed by staff. We will take her to the OR today for Intramedullary nailing of the left hip fracture with Dr. Pabon. Subjective .Patient resting in bed. Does not seem to be in a lot of pain. Review of Systems All systems reviewed & are unremarkable except as noted in HPI & below. Physical Exam .alert, awake, Doesn't really communicate. Left leg: skin intact lateral hip. Hip and knee in flexed position. Results & Data Results & Data Laboratory Results . Diagnostic Findings . PG Care Time/CCT Total # of Minutes Spent Total Time Spent with Patient: Total time spent is greater than 50% in coordination of care (as documented) at patient's floor/unit and/or counseling patient: Coding Level of Care Code 20822 Post Operative Follow-Up Diagnoses Closed left hip fracture S72.002A
[2022-05-01] MEDS: MAGNESIUM SULFATE / D5W 1 GM/100 ML BAG IV SCH ×2 (10:31→21:35)
[2022-05-01] MEDS: LACTATED RINGER'S 1,000 ML IV SCH (10:31)
--- NOTE | 2022-05-01 10:39 | History & Physical Bridge Note ---
Date of Service May 01, 2022 History & Physical Bridge Note I have examined the patient, reviewed the History & Physical and in the interval since the performance of the History & Physical I have noted the following changes of clinical significance: no changes noted
[2022-05-01] MEDS ORDERED: fentaNYL citrate 100 MCG/2 ML VIAL ONE (11:39)
[2022-05-01] MEDS ORDERED: PROPOFOL IV EMULSION 10 MG/ML 20 ML VIAL IV ONE (11:39)
[2022-05-01] MEDS ORDERED: ONDANSETRON INJ 2 MG/ML 2 ML VIAL ONE (11:39)
[2022-05-01] MEDS ORDERED: SUCCINYLCHOLINE CHLORIDE 20 MG/ML 10 ML VIAL IV ONE (11:40)
[2022-05-01] MEDS ORDERED: SUGAMMADEX SODIUM 200 MG/2 ML VIAL IV ONE (12:42)
--- NOTE | 2022-05-01 12:48 | Anesthesiology Consultation ---
Date of Service May 01, 2022 Assessment & Plan Chart Review Chart Review: Acceptable Risk for Surgery and Patient NOT seen in Pre Admission Testing Consults Requested none ASA ASA4 Proposed Anesthesia Anesthesia Type: General Anesthesia Line Insertion: Arterial line Risk / Benefits Reviewed With: PT / POA / Parent / Guardian, Accepts Plan and Informed Consent Obtained Additional Comments: Discussed anesthesia w/ daughter ,all questions answered;Rvs Benefits,informed consent obtained. Covid test neg. History Surgery Operation Date: 05/01/22 11:30 Proposed Procedures p Left Hip IM Nail - Andres Pabon MD Height/Weight Height: 5 ft 4 in Weight: 47.2 kg Allergies Allergy/AdvReac Type Severity Reaction Status Date / Time Iodinated Contrast Media Allergy Severe Hives Verified 04/30/22 17:17 Penicillins Allergy Intermediate HIVES Verified 04/30/22 17:17 Medications Home Medications Medication Instructions Recorded Confirmed Last Taken cholecalciferol (vitamin D3) 125 5,000 units PO QAM 08/02/19 04/30/22 03/09/22 mcg (5,000 unit) capsule melatonin 5 mg tablet 5 mg PO HS 08/02/19 04/30/22 03/09/22 propafenone 150 mg tablet 150 mg PO Q8H #90 tabs 12/23/21 04/30/22 03/09/22 acetaminophen 500 mg tablet 500 mg PO Q8 01/16/22 04/30/22 01/16/22 (Tylenol Extra Strength) levothyroxine 50 mcg tablet 50 mcg PO DAILYBB 01/16/22 04/30/22 03/09/22 metoprolol tartrate 25 mg tablet 12.5 mg PO BID 03/10/22 04/30/22 03/09/22 sennosides 8.6 mg-docusate sodium 2 tab-cap PO HS 03/10/22 04/30/22 03/09/22 50 mg capsule (Senna Plus) Morphine Sulf 100mg/5ml 5 mg sublingual .Q2HR PRN Severe 04/30/22 04/30/22 Unknown Pain (Scale Score 7-10) acetaminophen 650 mg rectal 650 mg HI Q4H PRN Fever Or Pain 04/30/22 04/30/22 Unknown suppository cyanocobalamin (vitamin B-12) 1,000 mcg PO DAILY 04/30/22 04/30/22 Unknown 1,000 mcg tablet (Vitamin B-12) fentanyl 12 mcg/hr transdermal 1 patch topical [id number] 04/30/22 04/30/22 Unknown patch hyoscyamine sulfate 0.125 mg tablet 0.125 mg PO Q4 PRN .RESP 04/30/22 04/30/22 Unknown SECRETIONS/NOISY BREATHING lorazepam 0.5 mg tablet 0.5 mg sublingual Q4 PRN 04/30/22 04/30/22 Unknown .RESTLESSNESS/INSOMNIA magnesium hydroxide 400 mg/5 mL 30 ml PO .DAILY UD PRN Constipation 04/30/22 04/30/22 Unknown oral suspension (Milk of Magnesia) oxycodone 5 mg tablet 5 mg PO Q4H PRN .MILD TO MOD PAIN 04/30/22 04/30/22 Unknown pantoprazole 40 mg tablet,delayed 40 mg PO DAILY 04/30/22 04/30/22 Unknown release thiamine HCl (vitamin B1) 100 mg 100 mg PO DAILY 04/30/22 04/30/22 Unknown tablet Active Medications Generic Name Dose Route Start Last Admin Trade Name Nicholas PRN Reason Stop Dose Admin Acetaminophen 500 mg 04/30/22 22:00 05/01/22 05:36 Acetaminophen 500 Mg Tab PO 05/30/22 21:59 Not Given Q8 SAGE Escitalopram Oxalate 5 mg 05/01/22 09:00 05/01/22 08:17 Escitalopram Oxalate 10 Mg Tab PO 05/31/22 08:59 Not Given QAM SAGE Lactated Ringer's 1,000 mls @ 75 mls/hr 04/30/22 20:54 05/01/22 10:31 Lr IV 05/30/22 20:53 75 mls/hr .[id number] SAGE Administration Magnesium Sulfate/Dextrose 1 gm in 100 mls @ 50 mls/hr 05/01/22 09:15 05/01/22 12:45 Magnesium Sulfate / D5w IV 05/01/22 13:14 Infused Q2H SAGE Titration Insulin Aspart 0 units 05/01/22 00:00 05/01/22 06:19 Insulin Aspart Per Unit SC 05/31/22 00:00 Not Given Q6 SAGE Levothyroxine Sodium 50 mcg 05/01/22 06:30 05/01/22 05:36 Levothyroxine Sodium 50 Mcg Tablet PO 05/31/22 06:29 Not Given DAILYBB SAGE Metoprolol Tartrate 12.5 mg 04/30/22 21:00 05/01/22 08:17 Metoprolol Tartrate 25 Mg Tab PO 05/30/22 20:59 Not Given BID SAGE Morphine Sulfate 2 mg 04/30/22 20:54 05/01/22 10:31 Morphine Sulfate 2 Mg/Ml Carp IV 05/14/22 20:53 2 mg Q4H PRN Administration severe uncontrolled pain Pantoprazole Sodium 40 mg 05/01/22 09:00 05/01/22 08:17 Pantoprazole 40 Mg Tab PO 05/31/22 08:59 Not Given DAILY SAGE Propafenone HCl 150 mg 04/30/22 22:00 05/01/22 05:36 Propafenone Hcl 150 Mg Tablet PO 05/30/22 21:59 Not Given Q8H SAGE Senna/Docusate Sodium 2 tab 04/30/22 21:00 04/30/22 22:07 Docusate Sodium/Senna 50/8.6mg Tab PO 05/30/22 20:59 2 tab HS SAGE Administration Sucralfate 1 gm 04/30/22 22:00 05/01/22 10:31 Sucralfate 1 Gm Tab PO 05/30/22 21:59 Not Given ACHS SAGE Thiamine HCl 100 mg 05/01/22 09:00 05/01/22 08:17 Thiamine Hcl 100 Mg Tab PO 05/31/22 08:59 Not Given QAM SAGE Tramadol HCl 50 mg 04/30/22 21:00 05/01/22 08:17 Tramadol Hcl 50 Mg Tablet PO 05/30/22 20:59 Not Given BID SAGE NPO Date Last Intake of Fluids: 04/30/22 Time Last Intake of Fluids: 18:00 Date Last Intake of Solids: 04/30/22 Time Last Intake of Solids: 18:00 Past Medical History Medical History Acute GI bleeding Anemia Anticoagulant long-term use Anxiety Aortic stenosis, severe CAD (coronary artery disease) Chronic diastolic congestive heart failure CKD (chronic kidney disease) CVA (cerebral vascular accident) Dementia Dyslipidemia Essential hypertension GERD without esophagitis H/O non-ST elevation myocardial infarction (NSTEMI) History of pneumonia Hypothyroidism Mild cognitive impairment Paroxysmal atrial fibrillation Recurrent falls TIA (transient ischemic attack) Type 2 diabetes mellitus Urinary incontinence Exercise / Class Metabolic Activity IV < 2 Limit ADL/Bedbound Past Family History Family History Family/Other No problems noted. Brother Cardiac disorder Stroke Hypertension Lung disease Mother Stroke Father Stroke Sister Lung cancer Malignant neoplasm of urinary bladder Denies family history of Colon cancer Ovarian cancer Prostate cancer Myocardial infarction Breast cancer Past Surgical History Surgical History History of hysterectomy Hx of CABG S/P cardiac pacemaker procedure S/P lumpectomy of breast Status post carotid surgery L CEA Status post cholecystectomy Past Anesthesia History No Hx of Anesthesia Complications and No Family Hx of Anesthesia Complications History of PONV No Hx of PONV and No Hx of Motion Sickness Social History Smoking Status: Never smoker tobacco type: cigarettes Do You Dip or Chew Tobacco: No Hx Alcohol Use: No Alcohol type: beer alcohol intake frequency: holidays/special occasions only Hx Substance Use: No substance use type: does not use Physical Exam Vital Signs Last Vital Signs Temp 36.9 C 05/01/22 11:49 Pulse 70 05/01/22 11:49 Resp 16 05/01/22 11:49 BP 148/80 H 05/01/22 11:49 Pulse Ox 96 05/01/22 11:49 O2 Del Method 05/01/22 11:49 Constitutional not cachectic ENMT Mouth: + dentition abnormality and + edentulous Thyromental Distance: < 3.5 Finger Breadths Mallampati Class: II Neck normal visual inspection and trachea midline; neck extension not limited Respiratory normal respiratory effort Auscultation: + diminished lung sounds Cardiovascular Rate/Rhythm: regular rate and regular rhythm Heart Sounds: + murmur (+ M @ RUSB ,2nd ICS,4-5/6) Vessels: no carotid bruit Chest (Breasts) Chest: + pacemaker Musculoskeletal Spine: normal cervical ROM Extremities: full ROM of extremities Neurologic moves all extremities Motor/Sensory: no sensory deficit Psychiatric Orientation: + not alert and + not oriented x 3 Testing Laboratory Results 05/01/22 06:00 05/01/22 06:00 PT 11.0 Seconds (9.0-12.0) 04/30/22 13:55 INR 1.0 (0.9-1.1) 04/30/22 13:55 APTT 25.1 Seconds (21.0-31.0) 04/30/22 13:55 Hemoglobin A1c 6.2 % (4.5-5.6) H 05/01/22 06:00 Urine Color Dark Yellow 04/30/22 13:50 Urine Appearance Cloudy (Clear) A 04/30/22 13:50 Urine pH 5.0 (4.5-7.5) 04/30/22 13:50 Ur Specific [place] 1.025 (1.000-1.030) 04/30/22 13:50 Urine Protein 2+ (Negative) H 04/30/22 13:50 Urine Glucose (UA) Negative (Negative) 04/30/22 13:50 Urine Ketones Trace (Negative) H 04/30/22 13:50 Urine Nitrite Positive (Negative) A 04/30/22 13:50 Ur Leukocyte Esterase 2+ (Negative) H 04/30/22 13:50 Urine WBC (Auto) >30 /hpf (0-5) H 04/30/22 13:50 Urine RBC (Auto) 0-4 /hpf (0-4) 04/30/22 13:50 U Hyaline Cast (Auto) 1-5 /lpf (0-5) 04/30/22 13:50 U Epithel Cells (Auto) >30 /lpf (0-5) H 04/30/22 13:50 Urine Bacteria (Auto) 4+ (Negative) H 04/30/22 13:50 Blood Type A Positive 04/30/22 21:05 Antibody Screen NEGATIVE 04/30/22 21:05 04/30/22 13:50 Urine Culture - Preliminary Urine,Clean Catch Gram negative bacilli 05/01/22 05/01/22 11:58 06:19 POC Glucose 143 H 128 H Electrocardiogram Date: 04/30/22 A-Paced @ 66;RBBB;LAFB;BFB;T wave abnl Chest X-Ray Date: 04/30/22 Findings: + NAD and + other (pacemaker) Echocardiogram Date: 01/23/21 EF: 50% LV Function: normal (low normal) RWMA: no none Other Findings: + atrial enlargement and + LVH Valvular Disease: + (severe ;SAMUEL 0.8 cm2) and + MR (mod-severe) Mod. HI;Mod- severe TR;PAP-46 Torr
[2022-05-01] MEDS ORDERED: EPINEPHrine INJ 1 MG/ML AMP ONE (12:55)
[2022-05-01] MEDS ORDERED: BUPIVACAINE 0.5 % 5 MG/1 ML MPF 30ML VIAL ONE (12:55)
[2022-05-01] MEDS ORDERED: ROCURONIUM BROMIDE 10 MG/ML 5 ML VIAL IV ONE (13:39)
[2022-05-01] MEDS ORDERED: ETOMIDATE 2 MG/ML 20 ML VIAL IV ONE (13:39)
[2022-05-01] MEDS ORDERED: ESMOLOL HCL INJ 10 MG/ML 10ML VIAL IV ONE ×2 (13:43→14:23)
[2022-05-01] MEDS ORDERED: PHENYLEPHRINE HCL 10 MG/ML VIAL ONE (13:46)
--- NOTE | 2022-05-01 14:24 | Operative Report ---
PG Post Operative Report Pre & Post Diagnosis Operation Date: 05/01/22 11:30 Pre-Op Diagnosis: Displaced Left Intertrochanteric Hip Fracture Post-Op Diagnosis: Displaced Left Intertrochanteric Hip Fracture I identified the patient and participated in the time-out.: Yes Procedure Operation Date: 05/01/22 11:30 Actual Procedures p Intramedullary Nailing Left intertrochanteric hip fracture (Left) - Andres Pabon MD Surgeon Andres Pabon MD Hoist Worker Eliel Lin PA-C Estimated Blood Loss 50 Findings Consistent with Post-Op Diagnosis Specimens None Anesthesia Type General Complications none Indications Patient is an 87-year-old female with multiple medical comorbidities including severe dementia who sustained a fall yesterday. She was found on the floor. She was brought to emergency room x-rays of the left displaced comminuted intertrochanteric hip fracture. Treatment options were explained to the patient and her power of claims attorney and the they elected proceed with surgical management for comfort measures primarily. Description of Procedure Operative implants consist of: 1. Synthes left at 360 mm x 11 mm long trochanteric nail. 2. 85 mm helical blade. 3. 44 mm x 5 mm distal interlocking screw. The patient was taken to the operating, identified, placed on the operating table supine position protectors were properly padded. A general anesthetic was employed by anesthesia team. The left leg was placed in boot traction left leg was placed in a well leg lamb. The left hip and leg were then scrubbed with Hibiclens, prepped with ChloraPrep and draped in usual sterile fashion. A curvilinear incision was made just proximal to the tip of the trochanter. Sharp dissection was carried through subcutaneous tissue down to level the gluteal fascia gluteal fascia incised longitudinally in line with skin incision. A guidewire was placed just in the lateral tip of the trochanter in line with the IM canal both AP and lateral planes. It was tapped down the canal under fluoroscopic guidance. This was verified. This is overreamed with the 17 mm reamer. The ball tip guidewire was then exchanged for the previous guidewire placed down the IM canal. We measured for nail length 360 mm nail was selected. The guidewire was overreamed with a 12.5 mm reamer. A 11 mm x 360 mm left long trochanteric nail was then placed and tapped into position. The lateral aiming arm was attached. A stab incision was made and this advanced to the lateral aspect of the femur. A guidewire was placed in the central aspect of the femoral head neck on both the AP and lateral planes. It was measured and 85 mm helical blade was selected. The triple reamer was used to ream the path for the helical blade. The helical blade was placed. It was tapped into position. I did apply some compression and then the proximal setscrew was tightened. Attention then drawn toward distal interlocking. Using the perfect [place] technique a distal interlocking screw was placed in the dynamic hole. This was made through a stab incision followed by a placement of the drill and the screw was placed. Some final x-rays were obtained. Attention drawn toward closing. The wound was irrigated copious muscle irrigation. I injected locally with 30 cc of half percent Marcaine with epinephrine. The IT band gluteal fascia was closed with #1 Vicryl suture in a running fashion. Subcutaneous tissues of all wounds were closed with 2 Dexon suture in buried erupted fashion skin was closed skin porter. Legs then cleaned and dried a sterile dressing was Xeroform, 4 x 4's, ABD and foam tape were applied. The patient was then brought out of general anesthesia, taken off the fracture table and transported to the recovery room in stable condition. The patient tolerated procedure well and there were no complications. Eliel Lin, my physician assistant coach, was present for the entire procedure. His assistance was required for proper patient positioning, prepping and draping, surgical exposure, retraction, perform the technical details of the operation, placement of the implants, closure of the wound and placement of sterile bandage. I attest to the content of the Intraoperative Record and any orders documented therein. Any exceptions are noted below.
[2022-05-01] MEDS ORDERED: hydrALAZINE HCL 20 MG/ML VIAL ONE (14:58)
[2022-05-01] MEDS ORDERED: fentaNYL citrate 100 MCG/2 ML VIAL IV PRN (15:01)
[2022-05-01] MEDS ORDERED: ONDANSETRON INJ 2 MG/ML 2 ML VIAL IV PRN (15:01)
[2022-05-01] MEDS ORDERED: ATROPINE SULFATE 0.1 MG/ML 10ML SYR IV PRN (15:01)
[2022-05-01] MEDS ORDERED: hydrALAZINE HCL 20 MG/ML VIAL IV STA (15:01)
[2022-05-01] MEDS ORDERED: ePHEDrine sulfate 50 MG/ML AMP IV PRN (15:01)
[2022-05-01] MEDS ORDERED: NALOXONE HCL 0.4 MG/1 ML VIAL/CARP IV PRN (15:01)
[2022-05-01] MEDS ORDERED: FLUMAZENIL 0.1 MG/1 ML 10 ML VIAL IV PRN (15:01)
[2022-05-01] MEDS ORDERED: PROMETHAZINE HCL 12.5 MG in SODIUM CHLORIDE 0.9% 50 ML IV PRN (15:01)
[2022-05-01] MEDS ORDERED: LABETALOL HCL IV 5 MG/ML 20ML IV PRN (15:01)
--- NOTE | 2022-05-01 16:18 | Fluoroscopy Report ---
FL hip LT 2-3V CLINICAL HISTORY: LT IM NAIL TECHNIQUE: 4 views were obtained with the C-arm in the OR with the above procedure. Total fluoroscopy time was 60 seconds. Total skin dose was 7.36 mGy. Comparison: None available at the time of this dictation. FINDINGS/IMPRESSION: Intraoperative images were obtained of left trochanteric nail placement. Please correlate with intraoperative fluoroscopy and operative report. ACT 112: Negative or not required by law. Electronically signed by: Misael Holguin M.D. 05/01/2022 4:16 PM
[2022-05-01] MEDS ORDERED: SODIUM CHLORIDE 0.9% 50 ML BAG ONE (18:07)
[2022-05-01] MEDS ORDERED: PROMETHAZINE HCL INJ 25 MG/ML 1 ML VIAL ONE (18:07)
--- NOTE | 2022-05-01 18:22 | Hospitalist Progress Note ---
Date of Service May 01, 2022 Assessment & Plan (1) Closed left hip fracture: Plan: Acute following fall - appreciate surgical evaluation-now s/p left hip ORIF for comfort BPs lisghtly ow and anesthesia placed orders to go to tele monitored bed post-op - Multi-tiered pain control with rescue Narcan available - TEDs, SCDs, for VTE prophylaxis - PT/OT eval post op but is on hospice so most likely does not need rehab follow CBC, BMP in AM (2) Acute UTI: Plan: UTI uncomplicated - continue rocephin 1 GM IV 24 hours - await culture (3) Fracture, pelvis closed: Plan: Hx of with fall in February (4) Esophagitis: Plan: Continue with PPI Continue with Crafate (5) Aortic stenosis, severe: Plan: Gradient in 2020 was 25mm HG - supportive care - LR 75 ml/hour - BP control - Rythm/rate control (6) Anemia: Plan: Chronic hold her B12 and her ferrous sulfate (7) Hypothyroidism: Plan: Continue Synthroid 50mcg/day (8) Paroxysmal atrial fibrillation: Plan: Continue propafenone - no anticoagulation with history of GIB and falls - DDDR pacemaker- rate 65, upper limit track 110 (9) Type 2 diabetes mellitus: Plan: Goal < 180mg/dl - aspart sliding scale for now - hold Tradjenta Plan Dispo-continue dstay Admission and Anticipated Discharge Date Admission Date: April 30, 2022 Subjective Pt seen in PACU in the evening and diastolic BPs low but had been quite high and received IV hydralazine acoupld hours earlier. Pt very drowsy and did not wake up fo rme but had been given phenergan due to some post-op N/V as per RN. Review of Systems Review of Systems: Unobtainable due to cognitive status Physical Exam Constitutional: + cachectic and + lethargic; no acute distress Neck: trachea midline, no thyromegaly Respiratory: normal respiratory effort, lungs clear to auscultation Cardiovascular: Rate/Rhythm: regular rate and regular rhythm Heart Sounds: + murmur (3/6 NOMI at RUSB) Extremities: no edema Chest (Breasts): Chest: normal inspection of chest Gastrointestinal (Abdomen): normal bowel sounds, soft, nontender, no hepatosplenomegaly Musculoskeletal: Extremities: + extremities abnormal to inspection (rt hip with dressing in place), no cyanosis and no clubbing Skin: no rashes, warm and dry Genitourinary: Mullen in place Lymphatic: no lymphedema Results & Data Results & Data ([facility]) Vital Signs (Past 12 Hours) Vital Signs Temp Pulse Resp BP BP Pulse Ox O2 Del Method 05/01/22 18:10 80 20 150/55 H 154/27 H 100 Room Air 05/01/22 18:00 65 19 128/44 L 137/24 L 96 Room Air 05/01/22 17:40 79 16 126/53 L 142/26 H 97 Room Air 05/01/22 17:50 79 17 121/49 L 133/25 L 96 Room Air 05/01/22 17:30 74 18 110/42 L 122/22 L 97 Room Air 05/01/22 17:20 84 16 120/73 165/33 H 96 Room Air 05/01/22 17:10 73 16 108/52 L 131/24 L 97 Room Air 05/01/22 17:00 76 16 124/55 L 97 Room Air 05/01/22 15:50 66 15 85/23 L 95 Room Air 05/01/22 15:40 66 16 105/25 L 96 Room Air 05/01/22 16:50 97 H 17 152/62 H 96 Room Air 05/01/22 16:40 75 16 97/41 L 95 Room Air 05/01/22 16:30 76 15 126/27 L 96/44 L 95 Room Air 05/01/22 16:20 36.1 C L 71 14 109/38 L 126/25 L 98 Room Air 05/01/22 16:10 72 14 97/33 L 115/23 L 98 Room Air 05/01/22 16:00 72 14 109/31 L 115/22 L 96 Room Air 05/01/22 15:30 36.4 C L 65 16 100/49 L 96 Room Air 05/01/22 15:20 65 16 101/89 97 Room Air 05/01/22 15:10 65 16 132/46 L 97 Room Air 05/01/22 15:00 73 17 195/67 H 242/65 H 100 Oxymask 05/01/22 14:50 65 17 197/59 H 100 Oxymask 05/01/22 14:40 65 16 189/53 H 100 Oxymask 05/01/22 14:32 36.4 C L 69 16 210/67 H 99 Oxymask 05/01/22 11:49 36.9 C 70 16 148/80 H 96 Room Air 05/01/22 08:12 Room Air 05/01/22 07:02 36.7 C 72 16 123/53 L 94 Room Air O2 Flow Rate 05/01/22 18:10 05/01/22 18:00 05/01/22 17:40 05/01/22 17:50 05/01/22 17:30 05/01/22 17:20 05/01/22 17:10 05/01/22 17:00 05/01/22 15:50 05/01/22 15:40 05/01/22 16:50 05/01/22 16:40 05/01/22 16:30 05/01/22 16:20 05/01/22 16:10 05/01/22 16:00 05/01/22 15:30 05/01/22 15:20 05/01/22 15:10 05/01/22 15:00 5 05/01/22 14:50 5 05/01/22 14:40 5 05/01/22 14:32 5 05/01/22 11:49 05/01/22 08:12 05/01/22 07:02 Laboratory Results labs reviewed PG Care Time/CCT Total # of Minutes Spent Total Time Spent with Patient: Total time spent is greater than 50% in coordination of care (as documented) at patient's floor/unit and/or counseling patient: Coding Level of Care Code 76461 Subseq Hosp Care Lvl 2 Diagnoses Closed left hip fracture S72.002A Acute UTI N39.0 Fracture, pelvis closed S32.501A Encounter type: initial encounter Laterality: right Pelvic bone location: pubis Sublocation of pubis: unspecified portion of pubis Esophagitis K20.90 Aortic stenosis, severe I35.0 Anemia D64.9 Hypothyroidism E03.9 Paroxysmal atrial fibrillation I48.0 Type 2 diabetes mellitus E11.9 (1) Fracture, pelvis closed Encounter type: initial encounter Laterality: right Pelvic bone location: pubis Sublocation of pubis: unspecified portion of pubis Qualified Code(s): S32.501A - Unspecified fracture of right pubis, initial encounter for closed fracture
--- NOTE | 2022-05-01 19:10 | Anesthesiology Progress Note ---
Date of Service May 01, 2022 Anesthesia Post Procedure Vital Signs Vital Signs: Temp Pulse Pulse Resp BP BP BP 05/01/22 18:30 67 20 124/48 L 142/22 H 05/01/22 18:45 65 18 104/42 L 122/20 L 05/01/22 18:20 37.1 C 80 20 117/48 L 136/26 L 05/01/22 18:10 80 20 150/55 H 154/27 H 05/01/22 18:00 65 19 128/44 L 137/24 L 05/01/22 17:40 79 16 126/53 L 142/26 H 05/01/22 17:50 79 17 121/49 L 133/25 L 05/01/22 17:30 74 18 110/42 L 122/22 L 05/01/22 17:20 84 16 120/73 165/33 H 05/01/22 17:10 73 16 108/52 L 131/24 L 05/01/22 17:00 76 16 124/55 L 05/01/22 15:50 66 15 85/23 L 05/01/22 15:40 66 16 105/25 L 05/01/22 16:50 97 H 17 152/62 H 05/01/22 16:40 75 16 97/41 L 05/01/22 16:30 76 15 126/27 L 96/44 L 05/01/22 16:20 36.1 C L 71 14 109/38 L 126/25 L 05/01/22 16:10 72 14 97/33 L 115/23 L 05/01/22 16:00 72 14 109/31 L 115/22 L 05/01/22 15:30 36.4 C L 65 16 100/49 L 05/01/22 15:20 65 16 101/89 05/01/22 15:10 65 16 132/46 L 05/01/22 15:00 73 17 195/67 H 242/65 H 05/01/22 14:50 65 17 197/59 H 05/01/22 14:40 65 16 189/53 H 05/01/22 14:32 36.4 C L 69 16 210/67 H 05/01/22 11:49 36.9 C 70 16 148/80 H 05/01/22 08:12 05/01/22 07:02 36.7 C 72 16 123/53 L 05/01/22 00:54 04/30/22 20:54 36.5 C 67 22 133/60 04/30/22 20:54 04/30/22 20:54 36.5 C 67 22 133/60 04/30/22 20:26 04/30/22 19:30 65 16 04/30/22 19:30 165/58 H Pulse Ox Pulse Ox O2 Del Method O2 Del Method O2 Flow Rate 05/01/22 18:30 97 Room Air 05/01/22 18:45 99 Room Air 05/01/22 18:20 95 Room Air 05/01/22 18:10 100 Room Air 05/01/22 18:00 96 Room Air 05/01/22 17:40 97 Room Air 05/01/22 17:50 96 Room Air 05/01/22 17:30 97 Room Air 05/01/22 17:20 96 Room Air 05/01/22 17:10 97 Room Air 05/01/22 17:00 97 Room Air 05/01/22 15:50 95 Room Air 05/01/22 15:40 96 Room Air 05/01/22 16:50 96 Room Air 05/01/22 16:40 95 Room Air 05/01/22 16:30 95 Room Air 05/01/22 16:20 98 Room Air 05/01/22 16:10 98 Room Air 05/01/22 16:00 96 Room Air 05/01/22 15:30 96 Room Air 05/01/22 15:20 97 Room Air 05/01/22 15:10 97 Room Air 05/01/22 15:00 100 Oxymask 5 05/01/22 14:50 100 Oxymask 5 05/01/22 14:40 100 Oxymask 5 05/01/22 14:32 99 Oxymask 5 05/01/22 11:49 96 Room Air 05/01/22 08:12 Room Air 05/01/22 07:02 94 Room Air 05/01/22 00:54 96 Room Air 04/30/22 20:54 98 Room Air 04/30/22 20:54 Room Air 04/30/22 20:54 98 Room Air 04/30/22 20:26 Room Air 04/30/22 19:30 04/30/22 19:30 Pain Intensity Left Hip: Pain Intensity: 6 Transfer of Care Handoff Completed per policy Notes Mental Status: see notes below (awake w/ dementia) Patient Amnestic to Procedure: Yes Nausea / Vomiting: adequately controlled Pain: adequately controlled Airway Patency, RR, SpO2: stable & adequate BP & HR: stable & adequate Hydration State: stable & adequate Anesthetic Complications: no major complications apparent
[2022-05-01] MEDS: SODIUM CHLORIDE 0.9% 1000ML 1,000 ML IV SCH (20:28)
[2022-05-01 20:44] LABS: Hematocrit (blood only) 26.4 % (34.1-44.9); Hemoglobin 8.9 g/dl (12.0-16.0)
[2022-05-01] MEDS ORDERED: MAGNESIUM SULFATE / D5W 1 GM/100 ML BAG IV SCH (21:30)
[2022-05-01] MEDS: ASPIRIN 81 MG ECTAB PO SCH ×2 (21:59→22:56)
[2022-05-01] MEDS: DOCUSATE SODIUM/SENNA 50/8.6MG TAB PO SCH ×2 (22:04→22:56)
[2022-05-01] MEDS: cefTRIAXone SODIUM 1,000 MG in DEXTROSE 5% 50 ML IV SCH (23:35)
[2022-05-02] MEDS: INSULIN ASPART PER UNIT SC SCH ×5 (00:03→22:11)
[2022-05-02] MEDS: LEVOTHYROXINE SODIUM 50 MCG TABLET PO SCH (05:40)
[2022-05-02] MEDS: PROPAFENONE HCL 150 MG TABLET PO SCH ×3 (05:40→22:14)
[2022-05-02] MEDS: ACETAMINOPHEN 500 MG TAB PO SCH ×3 (05:41→22:29)
--- NOTE | 2022-05-02 06:39 | Orthopedic Progress Note ---
Date of Service May 02, 2022 Assessment & Plan (1) Closed left hip fracture: Overall she is doing about as well as expected. She will be seen by physical therapy today for ambulation and range of motion exercises. She can be weightbearing as tolerated. She is on aspirin for DVT prophylaxis. She is orthopedically stable for discharge when medically ready. She will follow-up with orthopedics in 2 weeks. Full orthopedic discharge instructions were placed in the discharge summary. Antony Rollins was seen and examined at bedside this morning. She was awake and alert but she was not able to answer any questions. She does not seem to be having too much pain in her hip.. Review of Systems All systems reviewed & are unremarkable except as noted in HPI & below. Physical Exam On physical examination, the dressing is clean and dry. She had soreness with logroll of the leg. I was unable to do a neurovascular examination.. Results & Data Results & Data Laboratory Results . Diagnostic Findings . PG Care Time/CCT Total # of Minutes Spent Total Time Spent with Patient: Total time spent is greater than 50% in coordination of care (as documented) at patient's floor/unit and/or counseling patient: Coding Level of Care Code 00435 Post Operative Follow-Up Diagnoses Closed left hip fracture S72.002A
[2022-05-02 07:03] LABS: Basophils # (auto) 0.05 K/uL (0-0.2); Basophils % (auto) 0.4 %; Hematocrit (blood only) 22.8 % (34.1-44.9); Hemoglobin 7.6 g/dl (12.0-16.0); Immature Granulocytes # (auto) 0.11 K/uL (0.00-0.02); Immature Granulocytes % (auto) 0.8 %; Lymphocytes # (auto) 1.02 K/uL (1.2-3.4); Lymphocytes % (auto) 7.6 %; Mean Corpuscular Hemoglobin 31.5 pg (25.0-34.0); Mean Corpuscular Hgb Conc 33.3 g/dL (32.0-36.0); Mean Corpuscular Volume 94.6 fL (80.0-100.0); Mean Platelet Volume 11.4 fL (9.4-12.3); Monocytes # (auto) 1.12 K/uL (0.24-0.82); Monocytes % (auto) 8.3 %; Neutrophils # (auto) 11.15 K/uL (1.4-6.5); Neutrophils % (auto) 82.9 %; Platelet Count 155 K/uL (130-400); RDW Standard Deviation 47.8 fL (36.4-46.3); Red Blood Count 2.41 M/uL (3.93-5.22); White Blood Count 13.45 K/ul (4.8-10.8)
[2022-05-02 07:19] LABS: BUN Creatinine Ratio 22.7 (10-20); Calcium 8.4 mg/dl (8.5-10.1); Creatinine Clr Calc Pharmacy 26.3 ml/min; Est GFR (African American) 51.9 ml/min; Est GFR (Non-African American) 44.8 ml/min; Magnesium 1.8 mg/dl (1.7-2.4); Potassium 4.3 mmol/L (3.5-5.1)
[2022-05-02 08:50] LABS: RBC Morphology Unremarkable
[2022-05-02] MEDS ORDERED: SODIUM CHLORIDE 0.9% 250 ML IV PRN (08:58)
[2022-05-02] MEDS: ESCITALOPRAM OXALATE 10 MG TAB PO SCH (08:59)
[2022-05-02] MEDS: ASPIRIN 81 MG ECTAB PO SCH ×2 (08:59→22:10)
[2022-05-02] MEDS: METOPROLOL TARTRATE 25 MG TAB PO SCH ×2 (08:59→22:13)
[2022-05-02] MEDS: SUCRALFATE 1 GM TAB PO SCH ×4 (08:59→22:12)
[2022-05-02] MEDS: traMADol HCL 50 MG TABLET PO SCH ×2 (09:00→22:18)
[2022-05-02] MEDS: THIAMINE HCL 100 MG TAB PO SCH (09:00)
[2022-05-02] MEDS: PANTOprazole 40 MG TAB PO SCH (09:00)
[2022-05-02] MEDS: SODIUM CHLORIDE 0.9% 1000ML 1,000 ML IV SCH (09:31)
[2022-05-02] MEDS: LACTATED RINGER'S 1,000 ML IV SCH (09:37)
--- NOTE | 2022-05-02 10:41 | Hospitalist Progress Note ---
Date of Service May 02, 2022 Assessment & Plan (1) Closed left hip fracture: Plan: Acute following fall - appreciate surgical evaluation-now s/p left hip ORIF for comfort BPs were slightly low post op and anesthesia placed orders to go to tele monitored bed post-op BPs improved now and getting PRBC x 1 unit 05/02 -restart home Fentanyl patch, continue IV morphine prn, oxycodone prn - TEDs, SCDs, ASA bid for VTE prophylaxis - PT/OT eval post op but is on hospice so most likely does not need rehab follow CBC, BMP in AM stable for downgrade to surgical unit Discussed care with Granddaughter who is ok with dc back to [facility] on hospice tomorrow-her biggest concern is just making sure adequate pain control (2) Acute blood loss anemia: Plan: hgb down to 7.6 from admission hgb 10.2 with borderline low BPs -give 1 unit PRBCs follow CBC in AM (3) Acute UTI: Plan: UTI uncomplicated, Ur cx with E. coli - continue rocephin 1 GM IV 24 hours x 3 doses-last dose 05/03 (4) Fracture, pelvis closed: Plan: Hx of with fall in February (5) Esophagitis: Plan: Continue with PPI Continue with Carafate (6) Aortic stenosis, severe: Plan: Gradient in 2020 was 25mm HG - supportive care dc IVFs - BP control - Rhythm/rate control (7) Anemia: Plan: Chronic hold her B12 and her ferrous sulfate from home transfusing for acute blood loss as above (8) Hypothyroidism: Plan: Continue Synthroid 50mcg/day (9) Paroxysmal atrial fibrillation: Plan: Continue propafenone - no anticoagulation with history of GIB and falls - DDDR pacemaker- rate 65, upper limit track 110 in sinus rhythm here (10) Type 2 diabetes mellitus: Plan: Goal < 180mg/dl - aspart sliding scale for now - hold Tradjenta (11) Dementia: Plan: mild supportive care (12) CAD (coronary artery disease): Plan: h/o CABG continue ASA, metoprolol not on statin likely due to hospice status and no benefit Plan Dispo-continue dstay but likely dc to [facility] on hospice tomorrow Downgrade to med/surg unit Admission and Anticipated Discharge Date Admission Date: April 30, 2022 Subjective Pt drowsy this AM but does wake up and answer some questions, quickly falls back asleep. States that her feet are cold and she would like some socks. Denies pain. Tele with NSR, rate 70-80s Spoke with granddaughter on phone. Main goal is comfort and pain control-need to restart home Fentanyl patch Review of Systems Review of Systems: Unobtainable due to cognitive status Physical Exam Constitutional: + cachectic and + lethargic (but improved from previous); no acute distress Neck: trachea midline, no thyromegaly Respiratory: normal respiratory effort, lungs clear to auscultation Cardiovascular: Rate/Rhythm: regular rate and regular rhythm Heart Sounds: + murmur (3/6 NOMI at RUSB) Extremities: no edema Chest (Breasts): Chest: normal inspection of chest Gastrointestinal (Abdomen): normal bowel sounds, soft, nontender, no hepatosplenomegaly Musculoskeletal: Extremities: + extremities abnormal to inspection (left hip with dressing in place), no cyanosis and no clubbing Skin: no rashes, warm and dry Genitourinary: Rodriguez in place Lymphatic: no lymphedema Results & Data Results & Data ([facility]) Vital Signs (Past 12 Hours) Vital Signs Temp Pulse Pulse Resp BP BP Pulse Ox 05/02/22 10:28 36.8 C 79 20 119/47 L 96 05/02/22 10:12 36.7 C 72 20 118/45 L 93 05/02/22 07:28 36.9 C 69 16 109/41 L 92 05/02/22 03:00 36.8 C 64 16 103/45 L 93 05/02/22 00:18 76 05/01/22 23:52 36.8 C 74 16 141/67 H 95 O2 Del Method 05/02/22 10:28 05/02/22 10:12 05/02/22 07:28 Room Air 05/02/22 03:00 05/02/22 00:18 05/01/22 23:52 Laboratory Results 05/02/22 05/02/22 05/02/22 Range/Units 07:28 06:27 06:27 WBC (4.8-10.8) K/ul RBC (3.93-5.22) M/uL Hgb (12.0-16.0) g/dl Hct (34.1-44.9) % MCV (80.0-100.0) fL MCH (25.0-34.0) pg MCHC (32.0-36.0) g/dL RDW Std Deviation (36.4-46.3) fL RDW Coeff of Charisma (11.5-14.5) % Plt Count (130-400) K/uL MPV (9.4-12.3) fL Immature Gran % (Auto) % Neut % (Auto) % Lymph % (Auto) % [place] % (Auto) % Eos % (Auto) % Baso % (Auto) % Neut # (Auto) (1.4-6.5) K/uL Lymph # (Auto) (1.2-3.4) K/uL [place] # (Auto) (0.24-0.82) K/uL Eos # (Auto) (0-0.50) K/uL Baso # (Auto) (0-0.2) K/uL Immature Gran # (Auto) (0.00-0.02) K/uL RBC Morphology Sodium (136-145) mmol/L Potassium (3.5-5.1) mmol/L Chloride (98-107) mmol/L Carbon Dioxide (21-32) mmol/L Anion Gap (3-11) BUN (6-23) mg/dl Creatinine (0.6-1.2) mg/dl Est Cr Clr Drug Dosing ml/min Est GFR ( Amer) ml/min Est GFR (Non-Af Amer) ml/min BUN/Creatinine Ratio (10-20) Glucose (70-99(Fasting)) mg/dl POC Glucose 153 H (70-99) mg/dl Calcium (8.5-10.1) mg/dl Magnesium (1.7-2.4) mg/dl 25-OH Vitamin D Total 87.7 (30-100) ng/ml Blood Type Blood Type Recheck A Positive Antibody Screen Crossmatch 05/02/22 05/02/22 05/02/22 Range/Units 06:27 06:27 05:31 WBC 13.45 H (4.8-10.8) K/ul RBC 2.41 L (3.93-5.22) M/uL Hgb 7.6 L (12.0-16.0) g/dl Hct 22.8 L (34.1-44.9) % MCV 94.6 D (80.0-100.0) fL MCH 31.5 (25.0-34.0) pg MCHC 33.3 (32.0-36.0) g/dL RDW Std Deviation 47.8 H (36.4-46.3) fL RDW Coeff of Charisma 14.0 (11.5-14.5) % Plt Count 155 (130-400) K/uL MPV 11.4 (9.4-12.3) fL Immature Gran % (Auto) 0.8 % Neut % (Auto) 82.9 % Lymph % (Auto) 7.6 % [place] % (Auto) 8.3 % Eos % (Auto) 0.0 % Baso % (Auto) 0.4 % Neut # (Auto) 11.15 H (1.4-6.5) K/uL Lymph # (Auto) 1.02 L (1.2-3.4) K/uL [place] # (Auto) 1.12 H (0.24-0.82) K/uL Eos # (Auto) 0.00 (0-0.50) K/uL Baso # (Auto) 0.05 (0-0.2) K/uL Immature Gran # (Auto) 0.11 H (0.00-0.02) K/uL RBC Morphology Unremarkable Sodium 136 (136-145) mmol/L Potassium 4.3 (3.5-5.1) mmol/L Chloride 103 (98-107) mmol/L Carbon Dioxide 27 (21-32) mmol/L Anion Gap 6 (3-11) BUN 25 H (6-23) mg/dl Creatinine 1.10 (0.6-1.2) mg/dl Est Cr Clr Drug Dosing 26.3 ml/min Est GFR ( Amer) 51.9 ml/min Est GFR (Non-Af Amer) 44.8 ml/min BUN/Creatinine Ratio 22.7 H (10-20) Glucose 160 H (70-99(Fasting)) mg/dl POC Glucose 164 H (70-99) mg/dl Calcium 8.4 L (8.5-10.1) mg/dl Magnesium 1.8 (1.7-2.4) mg/dl 25-OH Vitamin D Total (30-100) ng/ml Blood Type Blood Type Recheck Antibody Screen Crossmatch 05/01/22 05/01/22 05/01/22 Range/Units 23:34 20:39 20:18 WBC (4.8-10.8) K/ul RBC (3.93-5.22) M/uL Hgb 8.9 L (12.0-16.0) g/dl Hct 26.4 L (34.1-44.9) % MCV (80.0-100.0) fL MCH (25.0-34.0) pg MCHC (32.0-36.0) g/dL RDW Std Deviation (36.4-46.3) fL RDW Coeff of Charisma (11.5-14.5) % Plt Count (130-400) K/uL MPV (9.4-12.3) fL Immature Gran % (Auto) % Neut % (Auto) % Lymph % (Auto) % [place] % (Auto) % Eos % (Auto) % Baso % (Auto) % Neut # (Auto) (1.4-6.5) K/uL Lymph # (Auto) (1.2-3.4) K/uL [place] # (Auto) (0.24-0.82) K/uL Eos # (Auto) (0-0.50) K/uL Baso # (Auto) (0-0.2) K/uL Immature Gran # (Auto) (0.00-0.02) K/uL RBC Morphology Sodium (136-145) mmol/L Potassium (3.5-5.1) mmol/L Chloride (98-107) mmol/L Carbon Dioxide (21-32) mmol/L Anion Gap (3-11) BUN (6-23) mg/dl Creatinine (0.6-1.2) mg/dl Est Cr Clr Drug Dosing ml/min Est GFR ( Amer) ml/min Est GFR (Non-Af Amer) ml/min BUN/Creatinine Ratio (10-20) Glucose (70-99(Fasting)) mg/dl POC Glucose 245 H 229 H (70-99) mg/dl Calcium (8.5-10.1) mg/dl Magnesium (1.7-2.4) mg/dl 25-OH Vitamin D Total (30-100) ng/ml Blood Type Blood Type Recheck Antibody Screen Crossmatch 05/01/22 04/30/22 Range/Units 11:58 21:05 WBC (4.8-10.8) K/ul RBC (3.93-5.22) M/uL Hgb (12.0-16.0) g/dl Hct (34.1-44.9) % MCV (80.0-100.0) fL MCH (25.0-34.0) pg MCHC (32.0-36.0) g/dL RDW Std Deviation (36.4-46.3) fL RDW Coeff of Charisma (11.5-14.5) % Plt Count (130-400) K/uL MPV (9.4-12.3) fL Immature Gran % (Auto) % Neut % (Auto) % Lymph % (Auto) % [place] % (Auto) % Eos % (Auto) % Baso % (Auto) % Neut # (Auto) (1.4-6.5) K/uL Lymph # (Auto) (1.2-3.4) K/uL [place] # (Auto) (0.24-0.82) K/uL Eos # (Auto) (0-0.50) K/uL Baso # (Auto) (0-0.2) K/uL Immature Gran # (Auto) (0.00-0.02) K/uL RBC Morphology Sodium (136-145) mmol/L Potassium (3.5-5.1) mmol/L Chloride (98-107) mmol/L Carbon Dioxide (21-32) mmol/L Anion Gap (3-11) BUN (6-23) mg/dl Creatinine (0.6-1.2) mg/dl Est Cr Clr Drug Dosing ml/min Est GFR ( Amer) ml/min Est GFR (Non-Af Amer) ml/min BUN/Creatinine Ratio (10-20) Glucose (70-99(Fasting)) mg/dl POC Glucose 143 H (70-99) mg/dl Calcium (8.5-10.1) mg/dl Magnesium (1.7-2.4) mg/dl 25-OH Vitamin D Total (30-100) ng/ml Blood Type A Positive Blood Type Recheck Antibody Screen NEGATIVE Crossmatch See Detail PG Care Time/CCT Total # of Minutes Spent Total Time Spent with Patient: Total time spent is greater than 50% in coordination of care (as documented) at patient's floor/unit and/or counseling patient: Coding Level of Care Code 15223 Subseq Hosp Care Lvl 2 Diagnoses Closed left hip fracture S72.002A Acute blood loss anemia D62 Acute UTI N39.0 Fracture, pelvis closed S32.501A Encounter type: initial encounter Laterality: right Pelvic bone location: pubis Sublocation of pubis: unspecified portion of pubis Esophagitis K20.90 Aortic stenosis, severe I35.0 Anemia D64.9 Hypothyroidism E03.9 Paroxysmal atrial fibrillation I48.0 Type 2 diabetes mellitus E11.9 Dementia F03.90 CAD (coronary artery disease) I25.10 (1) Fracture, pelvis closed Encounter type: initial encounter Laterality: right Pelvic bone location: pubis Sublocation of pubis: unspecified portion of pubis Qualified Code(s): S32.501A - Unspecified fracture of right pubis, initial encounter for closed fracture
[2022-05-02] MEDS ORDERED: fentaNYL 12 MCG/HR TDSY TD SCH (11:00)
[2022-05-02] MEDS: cefTRIAXone SODIUM 1,000 MG in DEXTROSE 5% 50 ML IV SCH (15:32)
[2022-05-02] MEDS: CHECK fentaNYL PATCH PLACEMENT SCH ×2 (15:32→23:32)
[2022-05-02] MEDS: oxyCODONE HCL IR 5 MG TAB (IMMEDIATE RELEASE) PO PRN ×2 (15:43→22:14)
[2022-05-02] MEDS ORDERED: SODIUM CHLORIDE 0.9% 1000ML 1,000 ML IV SCH (17:00)
[2022-05-02] MEDS ORDERED: MELATONIN 3 MG TAB PO SCH (21:00)
[2022-05-02] MEDS: DOCUSATE SODIUM/SENNA 50/8.6MG TAB PO SCH (22:10)
[2022-05-03] MEDS: oxyCODONE HCL IR 5 MG TAB (IMMEDIATE RELEASE) PO PRN (05:41)
[2022-05-03] MEDS: ACETAMINOPHEN 500 MG TAB PO SCH ×2 (05:41→13:27)
[2022-05-03] MEDS: PROPAFENONE HCL 150 MG TABLET PO SCH ×2 (05:42→13:22)
[2022-05-03] MEDS: LEVOTHYROXINE SODIUM 50 MCG TABLET PO SCH (05:42)
--- NOTE | 2022-05-03 06:46 | Orthopedic Progress Note ---
Date of Service May 03, 2022 Assessment & Plan (1) Closed left hip fracture: Overall she is doing about as well as expected. She will be seen by physical therapy again today for ambulation. She can be weightbearing as tolerated. She is on aspirin for DVT prophylaxis per Dr. Pabon. She can be discharged to [facility] when a bed becomes available. Full orthopedic discharge instructions were placed in the discharge summary. If you have any further questions please feel free to contact text me by [place] text or on my cell phone at [phone] Antony Rollins was seen and examined at bedside this morning. She was sleeping when I entered the room. I did not bother to wake her. I talked to the nurse about her status. She said she was able to get up to a chair with therapy yesterday. She is not complaining of too much hip pain. She has had no acute events.. Review of Systems All systems reviewed & are unremarkable except as noted in HPI & below. Physical Exam On physical examination of the left hip, the dressing is clean and dry. Her leg lengths are equal. She is unable to cooperate with a neurologic examination. Results & Data Results & Data Laboratory Results . Diagnostic Findings . PG Care Time/CCT Total # of Minutes Spent Total Time Spent with Patient: Total time spent is greater than 50% in coordination of care (as documented) at patient's floor/unit and/or counseling patient: Coding Level of Care Code 60476 Post Operative Follow-Up Diagnoses Closed left hip fracture S72.002A
[2022-05-03 07:24] LABS: Basophils # (auto) 0.05 K/uL (0-0.2); Basophils % (auto) 0.4 %; Eosinophils # (auto) 0.16 K/uL (0-0.50); Eosinophils % (auto) 1.3 %; Hematocrit (blood only) 24.5 % (34.1-44.9); Hemoglobin 8.2 g/dl (12.0-16.0); Immature Granulocytes % (auto) 0.8 %; Lymphocytes # (auto) 0.94 K/uL (1.2-3.4); Lymphocytes % (auto) 7.5 %; Mean Corpuscular Hemoglobin 29.9 pg (25.0-34.0); Mean Corpuscular Hgb Conc 33.5 g/dL (32.0-36.0); Mean Corpuscular Volume 89.4 fL (80.0-100.0); Mean Platelet Volume 11.7 fL (9.4-12.3); Monocytes # (auto) 1.01 K/uL (0.24-0.82); Monocytes % (auto) 8.1 %; Neutrophils % (auto) 81.9 %; Platelet Count 125 K/uL (130-400); RDW Coefficient of Variation 16.4 % (11.5-14.5); RDW Standard Deviation 53.3 fL (36.4-46.3); Red Blood Count 2.74 M/uL (3.93-5.22); White Blood Count 12.46 K/ul (4.8-10.8)
[2022-05-03 07:56] LABS: BUN Creatinine Ratio 31.3 (10-20); Calcium 8.1 mg/dl (8.5-10.1); Creatinine Clr Calc Pharmacy 34.9 ml/min; Potassium 3.8 mmol/L (3.5-5.1)
[2022-05-03] MEDS: INSULIN ASPART PER UNIT SC SCH ×2 (08:38→12:47)
[2022-05-03] MEDS: METOPROLOL TARTRATE 25 MG TAB PO SCH (08:40)
[2022-05-03] MEDS: ESCITALOPRAM OXALATE 10 MG TAB PO SCH (08:40)
[2022-05-03] MEDS: PANTOprazole 40 MG TAB PO SCH (08:41)
[2022-05-03] MEDS: ASPIRIN 81 MG ECTAB PO SCH (08:41)
[2022-05-03] MEDS: THIAMINE HCL 100 MG TAB PO SCH (08:41)
[2022-05-03] MEDS: SUCRALFATE 1 GM TAB PO SCH ×2 (08:41→12:47)
[2022-05-03] MEDS: traMADol HCL 50 MG TABLET PO SCH (08:46)
[2022-05-03] MEDS: CHECK fentaNYL PATCH PLACEMENT SCH (08:47)
--- NOTE | 2022-05-03 11:22 | Discharge Summary ---
Date of Service May 03, 2022 Admission HPI Per Admitting Provider 87 YOF with severe dementia, Aortic Stenosis, CAD with CABG frequent falls, DMII, hypothyroidism, Anxiety, PAF(on propafenone- no longer on Warfarin), GERD/esophagitis, Pacemaker insertion, resident at the [facility]. Patient was brought to the EMD today after being found on the floor at the [facility]. It is unsure how she got there. The patient was previously reported to be on hospice for her dementia and . In the EMD the patient had routine labs performed to include UA as well as imaging of her hips and pelvis. She is noted to have An acute mildly displaced and comminuted left intertrochanteric hip fracture. Currently awaiting Orthopaedics evaluation. She is also noted to have UTI and was started on Rocephin - she has grown casillas-sensitive E.COLI in the past. Patient has been on hospice for her dementia and - family would like to keep her comfortable, but would appreciate a surgical evaluation to see if she would be a candidate for any intervention that would promote pain control and mobility. If this is not the case then the daughter Lashawn understands that if not a surgical candidate with prolonged immobility and decrease in function that her mothers mortality increases. Appreciate Orthopaedics assessment. Patient will be observed for evaluation, pain control, treatment of UTI. She had previous fall in February 2022- with fracture of her pelvis and sacrum. Report from [facility] for this fall is that discussion with family in further imaging of head or cervical spine was deferred. Her last ECHO was 07/08 with EF 55-60% with borderline severe peak gradient 25. cath 2015- She has Left main disease with restenosis, LAD total occlusion proximally, circ with old occlusive disease, and RCA total occlusion. Previous SVG graft to LAD patent, but LAD distal ws 80% stenotic. GEORGES to LAD was occluded. Estimated risk or probability of ID is 6.6%, Revised cardiac risk of estimated risk of adverse outcome is HIGH risk and estimated rate of: ID, pulmonary edema, Vfib, Cardiac Arrest or heart block is > 11%. Medically HIGH risk for surgical procedure. Principal Diagnosis Left hip fracture, acute blood loss anemia Discharge Exam Constitutional + cachectic; no acute distress Eyes + anicteric sclerae Neck trachea midline, no thyromegaly Respiratory normal respiratory effort, lungs clear to auscultation Cardiovascular Rate/Rhythm: regular rate and regular rhythm Heart Sounds: + murmur (3/6 NOMI at RUSB) Extremities: no edema Chest (Breasts) Chest: normal inspection of chest Gastrointestinal (Abdomen) normal bowel sounds, soft, nontender, no hepatosplenomegaly Musculoskeletal Extremities: + extremities abnormal to inspection (left hip with dressing in place), no cyanosis and no clubbing Skin no rashes, warm and dry Psychiatric Orientation: alert, oriented to person, oriented to place and cooperative Lymphatic no lymphedema Discharge Data Allergies Allergy/AdvReac Type Severity Reaction Status Date / Time Iodinated Contrast Media Allergy Severe Hives Verified 04/30/22 17:17 Penicillins Allergy Intermediate HIVES Verified 04/30/22 17:17 Consultations 04/30/22 14:53 ED Decision to Admit Stat 04/30/22 20:54 Consult Orthopedic Surgery Routine Procedures Performed Operation Date: 05/01/22 11:30 Actual Procedures p Intramedullary Nailing Left Hip(Left) - Andres Pabon MD Ordered Studies 05/01/22 12:00 FL hip LT 2-3V Routine Hospital Course (1) Closed left hip fracture: Acute following fall - appreciate surgical evaluation-now s/p left hip ORIF for comfort BPs were slightly low post op and anesthesia placed orders to go to tele monitored bed post-op. Did well after receiving blood transfusion and then transferred to medical/surgical unit Received PRBC x 1 unit 05/02 -restarted home Fentanyl patch, continue oxycodone prn - TEDs, SCDs, ASA bid for VTE prophylaxis x6 weeks -Discharge back to [facility] on hospice Discussed care with her granddaughter on the phone (2) Acute blood loss anemia: hgb down to 7.6 from admission hgb 10.2 with borderline low BPs -Gave 1 unit PRBCs and hemoglobin improved to 8.2 (3) Acute UTI: UTI uncomplicated, Ur cx with E. coli -Received 3 days worth of rocephin 1 GM IV daily which is enough treatment for uncomplicated UTI (4) Fracture, pelvis closed: Hx of with fall in February Pain control (5) Esophagitis: Continue with PPI Continue with Carafate (6) Aortic stenosis, severe: Gradient in 2020 was 25mm HG - supportive care dc IVFs - BP control - Rhythm/rate control (7) Anemia: Chronic Continue B12 and her ferrous sulfate from home Transfused as above (8) Hypothyroidism: Continue Synthroid 50mcg/day (9) Paroxysmal atrial fibrillation: Continue propafenone - no anticoagulation with history of GIB and falls - DDDR pacemaker- rate 65, upper limit track 110 in sinus rhythm here (10) Type 2 diabetes mellitus: Was given NovoLog sliding scale while inpatient Restart home Tradjenta on discharge (11) Dementia: mild supportive care (12) CAD (coronary artery disease): h/o CABG continue ASA, metoprolol not on statin likely due to hospice status and no benefit Plan Dispo-stable for dc to [facility] on hospice today Total Time Total Time Spent Total Time Spent (In Minutes): 35 minutes Discharge Plan Discharge Items Patient Disposition: Hospice - Medical Facility Reason For Visit: LEFT HIP FRACTURE, UTI Discharge Diagnosis: Left hip fracture, UTI Condition on Discharge: Fair Activity: As commented below Non-emergency contact: Primary Care Provider and Surgeon Call non-emergency contact if: you have any medication questions, your symptoms worsen, your pain is not controlled, you have a fever, your wound has increased redness, your wound has increased drainage and your wound pain has increased Follow-up/Referrals: Kenna Knapp [Primary Care Provider] - (Follow up within 1 week) Diet: Carb Consistent or DM2 Addtl Attending Provider Instructions: You are returning back to [facility] and going on hospice. Please continue your usual pain medications as before. Addtl Dancing Teacher Provider Instructions: ORTHOPEDIC INSTRUCTIONS Hip Fracture Activity and Therapy Recommendations: 1. You were shown a series of exercises in the hospital. Do these exercises three times each day if you are able. 2. Get up and walk several times each day if you are capable. Make sure you have assistance is needed. For the first four weeks, try not to stand or walk for more than one hour at a time. If you do stand or walk for more than one hour, you will not hurt anything, but your leg will likely swell. 3. As you feel comfortable, you may change from the walker or crutches to a cane and then to independent walking if you are able. Please be safe. Medications: 1. Narcotic You will likely be sent from the hospital with the narcotic pain medication that worked best throughout your stay. 2. Aspirin-take aspirin 81 mg twice a day for 6 weeks for DVT prophylaxis 3. Other medications may be given for specific circumstances. If you have any questions, please call the office at [phone]. 4. Resume previous home medications unless otherwise instructed TEDs/Elastic Stockings: The white elastic stockings help limit swelling and prevent blood clots from forming in your legs. The more you wear them, the more they work. Wear them for six weeks. Dressing Care: Lehr can be open to air as long as the incisions are not draining. If the incisions are draining or if the porter are getting caught on your clothes then please cover the porter with dry gauze. Change the dressings as necessary to keep the incision as dry as possible Showering: You may shower 5 days from the day of surgery as long as the incisions are not draining. Do not soak the incision. Let soapy water run over the porter and pat them dry. Things To Watch For: 1. Drainage from the incision site that occurs more than one week after your surgery. 2. Increased redness at the incision site. 3. Fever above 102 degrees Fahrenheit. 4. Unusual chest pain or shortness of breath. 5. Call [facility] at with any of the above problems Follow-Up Visit: Follow-up with Dr. Pabon 2-3 weeks after your day of surgery. He will remove your porter and answer any questions. Please call the office to set up an appointment for a time that works for you. [phone] Pending Studies at Discharge: No Stand-Alone Forms: [facility] Skilled Items Patient informed of condition?: Yes DNR: Yes Discharge Level of Care: Other Communicable Disease: No Discharge Prognosis: Improving Lines: None Urinary Catheter: No Medications and DC Order Prescriptions: New aspirin 81 mg Tablet,Delayed Release (Dr/Ec) 81 mg PO BID Qty: 82 0RF escitalopram oxalate 5 mg tablet 5 mg PO DAILY Qty: 30 0RF Continued propafenone 150 mg tablet 150 mg PO Q8H Qty: 90 1RF melatonin 5 mg tablet 5 mg PO HS cholecalciferol (vitamin D3) 5,000 unit capsule 5,000 units PO QAM levothyroxine 50 mcg tablet 50 mcg PO DAILYBB Rx Instructions: TAKE 1 TABLET BY MOUTH ONCE DAILY acetaminophen [Tylenol Extra Strength] 500 mg Tablet 500 mg PO Q8 cyanocobalamin (vitamin B-12) [Vitamin B-12] 1,000 mcg Tablet 1,000 mcg PO DAILY Rx Instructions: takes after lunch thiamine HCl (vitamin B1) 100 mg tablet 100 mg PO DAILY pantoprazole 40 mg tablet,delayed release (DR/EC) 40 mg PO DAILY acetaminophen 650 mg Suppository 650 mg NV Q4H PRN (Reason: Fever Or Pain) magnesium hydroxide [Milk of Magnesia] 400 mg/5 mL Suspension 30 ml PO .DAILY UD PRN (Reason: Constipation) hyoscyamine sulfate 0.125 mg Tablet 0.125 mg PO Q4 PRN (Reason: .RESP SECRETIONS/NOISY BREATHING) lorazepam 0.5 mg Tablet 0.5 mg sublingual Q4 PRN (Reason: .RESTLESSNESS/INSOMNIA) Qty: 3 0RF Rx Instructions: CAN ALSO HAVE RECTALLY oxycodone 5 mg Tablet 5 mg PO Q4H PRN (Reason: .MILD TO MOD PAIN) Qty: 10 0RF fentanyl 12 mcg/hr patch 72 hour 1 patch topical [id number] Qty: 5 0RF Morphine Sulf 100mg/5ml 5 mg sublingual .Q2HR PRN (Reason: Severe Pain (Scale Score 7-10)) Qty: 30 0RF Rx Instructions: CAN ALSO HAVE PO metoprolol tartrate 25 mg Tablet 12.5 mg PO BID Rx Instructions: HOLD IF SBP <95 OR HR <60 Senna Plus 8.6-50 mg Capsule 2 tab-cap PO HS Discharge Orders: Discharge Order (Routine); Ordered 05/03/22 Ordered By: Katie Kang Admission Data Admit Date/Time: 04/30/22 20:50 Attending Provider: Katie Kang Admit Provider: Sam Abraham Primary Care Provider: Kenna Knapp Other Providers: [facility]Home [facility] ; [facility] ; Sam Abraham ; Connor Silver Other Interventions: Discharge Summary Assessment (RN) Last Done: 05/03/22 11:38 Coding Level of Care Code D/C DAY MANAGEMENT >30 MINS Diagnoses Closed left hip fracture S72.002A Acute blood loss anemia D62 Acute UTI N39.0 Fracture, pelvis closed S32.501A Encounter type: initial encounter Laterality: right Pelvic bone location: pubis Sublocation of pubis: unspecified portion of pubis Esophagitis K20.90 Aortic stenosis, severe I35.0 Anemia D64.9 Hypothyroidism E03.9 Paroxysmal atrial fibrillation I48.0 Type 2 diabetes mellitus E11.9 Dementia F03.90 CAD (coronary artery disease) I25.10
[2022-05-03] MEDS: cefTRIAXone SODIUM 1,000 MG in DEXTROSE 5% 50 ML IV SCH (12:45)
== END 2022-05-03 14:23 | disposition hospice, inpatient (51) | DRG 481 ==
LOC: ED 12:07 → 3E 20:26 → SUATTDRO 20:50 → 3E 20:50 → 2S 05-01 19:48 → 3E 05-02 11:07

== ENCOUNTER 2023-06-12 15:07 | Inpatient (IN) ==
--- NOTE | 2023-06-12 15:29 | Emergency Department Note ---
History of Present Illness General Chief complaint: Illness Time Seen by Provider: 06/12/23 15:18 History of Present Illness 88-year-old female from the [facility] dementia unit reportedly was being treated for urinary tract infection and has been off antibiotics for 2 days. Per EMS they called for medical command due to the fact that the patient was extremely combative and was not allowing staff to touch the patient. Patient was ordered 1 mg of IM to emergency department arrival. On arrival the patient is somnolent does respond to painful stimuli however does not provide me any further history. There is been no reported trauma no recent infections except for a urinary tract infection. No other history available to me at this time. Home Medications Medication Instructions Recorded Confirmed Type cholecalciferol (vitamin D3) 125 5,000 units PO QAM 08/02/19 04/30/22 History mcg (5,000 unit) capsule melatonin 5 mg tablet 5 mg PO HS 08/02/19 04/30/22 History propafenone 150 mg tablet 150 mg PO Q8H #90 tabs 12/23/21 04/30/22 Rx acetaminophen 500 mg tablet 500 mg PO Q8 01/16/22 04/30/22 History (Tylenol Extra Strength) levothyroxine 50 mcg tablet 50 mcg PO DAILYBB 01/16/22 04/30/22 History metoprolol tartrate 25 mg tablet 12.5 mg PO BID 03/10/22 04/30/22 History sennosides 8.6 mg-docusate sodium 2 tab-cap PO HS 03/10/22 04/30/22 History 50 mg capsule (Senna Plus) acetaminophen 650 mg rectal 650 mg MS Q4H PRN Fever Or Pain 04/30/22 04/30/22 History suppository cyanocobalamin (vitamin B-12) 1,000 mcg PO DAILY 04/30/22 04/30/22 History 1,000 mcg tablet (Vitamin B-12) hyoscyamine sulfate 0.125 mg tablet 0.125 mg PO Q4 PRN .RESP 04/30/22 04/30/22 History SECRETIONS/NOISY BREATHING magnesium hydroxide 400 mg/5 mL 30 ml PO .DAILY UD PRN Constipation 04/30/22 04/30/22 History oral suspension (Milk of Magnesia) pantoprazole 40 mg tablet,delayed 40 mg PO DAILY 04/30/22 04/30/22 History release thiamine HCl (vitamin B1) 100 mg 100 mg PO DAILY 04/30/22 04/30/22 History tablet Morphine Sulf 100mg/5ml 5 mg sublingual .Q2HR PRN Severe 05/03/22 Rx Pain (Scale Score 7-10) #30 mL aspirin 81 mg tablet,delayed 81 mg PO BID #82 tabs 05/03/22 Rx release fentanyl 12 mcg/hr transdermal 1 patch topical [id number] #5 ea 05/03/22 Rx patch lorazepam 0.5 mg tablet 0.5 mg sublingual Q4 PRN 05/03/22 Rx .RESTLESSNESS/INSOMNIA #3 tabs oxycodone 5 mg tablet 5 mg PO Q4H PRN .MILD TO MOD PAIN 05/03/22 Rx #10 tabs amlodipine 5 mg tablet 5 mg PO DAILY 06/12/23 06/12/23 History escitalopram oxalate 5 mg tablet 5 mg PO QAM 06/12/23 06/12/23 History hydrocodone 5 mg-acetaminophen 325 1 tab PO BID 06/12/23 06/12/23 History mg tablet melatonin 10 mg tablet 10 mg PO QPM 06/12/23 06/12/23 History Allergies Allergy/AdvReac Type Severity Reaction Status Date / Time Iodinated Contrast Media Allergy Severe Hives Verified 04/30/22 17:17 Penicillins Allergy Intermediate HIVES Verified 04/30/22 17:17 Past Med/Surg History Medical History Acute GI bleeding Anemia Anticoagulant long-term use Anxiety Aortic stenosis, severe CAD (coronary artery disease) Chronic diastolic congestive heart failure CKD (chronic kidney disease) CVA (cerebral vascular accident) Dementia DVT prophylaxis Dyslipidemia Essential hypertension Fall GERD without esophagitis H/O non-ST elevation myocardial infarction (NSTEMI) History of pneumonia Hypothyroidism Mild cognitive impairment Paroxysmal atrial fibrillation Recurrent falls TIA (transient ischemic attack) Type 2 diabetes mellitus Urinary incontinence Surgical History History of hysterectomy Hx of CABG S/P cardiac pacemaker procedure S/P lumpectomy of breast Status post carotid surgery L CEA Status post cholecystectomy Family History Family/Other No problems noted. Brother Cardiac disorder Stroke Hypertension Lung disease Mother Stroke Father Stroke Sister Lung cancer Malignant neoplasm of urinary bladder Denies family history of Colon cancer Ovarian cancer Prostate cancer Myocardial infarction Breast cancer Social History Smoking Status: Unknown if ever smoked Age Started Using Tobacco: 17; Age Quit Using Tobacco: 29; packs per day: 0.5; Second Hand Exposure: No; Do You Dip or Chew Tobacco: No; Hx Alcohol Use: No Hx Substance Use: No Preferred Language: Kinyarwanda Communication Ability: Impaired Communication Ability Comment: hard of hearing Visual Impairment: Limited Hearing Ability: Use of Hearing Aid 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 Beliefs That Will Affect Care: None marital status: / Current Living Situation: Personal Care Facility Current Living Situation Comment: [facility] current occupational status: retired How many Children do You have: 2 Feels Safe at Home: Declines to Answer Childhood Exposure to Second-Hand Smoke: Yes Diet: regular caffeine: Yes during the past year weight has: remained stable Dental Care, Regularly: Yes Physical Activity Frequency: Other Physical Activity Frequency Comment: limited by phusical condition Seatbelt Use: always Sunscreen Use: No Assistive Devices: Walker Review of Systems Unobtainable due to cognitive status Physical Exam Vital Signs Vital Signs - 24 hr 06/12/23 15:11 06/12/23 15:18 06/12/23 17:11 Pulse Rate 65 Pulse Rate [Finger] 68 Pulse Rhythm Regular Pulse Rhythm [Finger] Regular Pulse Strength Normal Pulse Strength [Finger] Normal Respiratory Rate 20 15 Respiratory Effort / Characteristics Non-Labored Non-Labored Respiratory Depth Normal Normal Respiratory Pattern Regular Blood Pressure 162/72 H Blood Pressure Mean 102 Pulse Oximetry 94 94 92 Oxygen Delivery Method Room Air Room Air Room Air Sepsis Recent Fever Within 48 Hours No Sepsis New/Unexplained Change in Mental Status Yes Sepsis Action Taken by Nursing No Action Required GENERAL: Patient is in no distress no respiratory distress responsive to painful stimuli EYES: The conjunctivae are clear. The pupils are round and reactive. EARS, NOSE, MOUTH AND THROAT: The nose is without any evidence of any deformity. Mucous membranes are moist. Tongue is midline. NECK: The neck is nontender and supple. RESPIRATORY: Normal respiratory effort is noted there is no evidence of wheezing rhonchi or rales CARDIOVASCULAR: Regular rate and rhythm noted there no murmurs rubs or gallops normal S1 normal S2. GASTROINTESTINAL: The abdomen is soft. Abdomen is nontender. MUSCULOSKELETAL/EXTREMITIES: There is no evidence of gross deformity full range of motion is noted in the hips and shoulders. SKIN: There is no obvious evidence of any rash. There are no petechiae, pallor or cyanosis noted. NEUROLOGIC: Patient responds to painful stimuli Course Reevaluation(s) Reevaluation #1: Patient was resting in no distress during emergency department evaluation, patient was started on IV Rocephin Time: 17:22 Consultations Consultation #1: [facility] Time: 17:22 Administered Medications Discontinued Medications Ceftriaxone Sodium (Rocephin) 2,000 mg in 70 mls @ 140 mls/hr IV NOW STA Stop: 06/12/23 17:15 Last Admin: 06/12/23 17:21 Dose: 140 mls/hr Documented By: LOBO Medical Decision Making Medical Records Attestation: I reviewed the patient's medical records. Home Medications Current Medication List: was personally reviewed by me Laboratory Data Attestation: I reviewed the patient's lab results. Patient has a normal white blood cell count normal lactate, normal procalcitonin, potentially a contaminated urine versus a urinary tract infection as interpreted by me 06/12/23 15:47 06/12/23 15:47 Lab Results 06/12/23 06/12/23 06/12/23 Range/Units 15:47 15:47 15:47 WBC 6.08 (4.8-10.8) K/ul RBC 3.87 L (4.20-5.40) M/uL Hgb 12.0 (12.0-16.0) g/dl Hct 36.4 L (37.0-47.0) % MCV 94.1 (80.0-100.0) fL MCH 31.0 (25.0-34.0) pg MCHC 33.0 (32.0-36.0) g/dL RDW Std Deviation 50.2 H (36.4-46.3) fL RDW Coeff of Charisma 14.6 H (11.5-14.5) % Plt Count 212 (130-400) K/uL MPV 11.4 (9.4-12.4) fL Immature Gran % (Auto) 0.3 % Neut % (Auto) 64.0 % Lymph % (Auto) 24.3 % Mccracken % (Auto) 7.2 % Eos % (Auto) 3.0 % Baso % (Auto) 1.2 % Neut # (Auto) 3.89 (1.40-6.50) K/uL Lymph # (Auto) 1.48 (1.20-3.40) K/uL Mccracken # (Auto) 0.44 (0.11-0.59) K/uL Eos # (Auto) 0.18 (0.00-0.50) K/uL Baso # (Auto) 0.07 (0.00-0.20) K/uL Immature Gran # (Auto) 0.02 (0.01-0.20) K/uL PT 11.4 (9.0-12.0) Seconds INR 1.0 (0.9-1.1) APTT 26.6 (21.0-31.0) Seconds PTT Ratio 0.9 Sodium 134 L (136-145) mmol/L Potassium TNP Chloride 102 (98-107) mmol/L Carbon Dioxide 25 (21-32) mmol/L Anion Gap 7 (3-11) BUN 31 H (6-23) mg/dl Creatinine 0.96 (0.6-1.2) mg/dl Est Cr Clr Drug Dosing Not Reportable Est GFR ( Amer) 60.8 ml/min Est GFR (Non-Af Amer) 52.4 ml/min BUN/Creatinine Ratio 32.3 H (10-20) Glucose 183 H (70-99(Fasting)) mg/dl Lactate (0.4-2.0) mmol/L Calcium 9.8 (8.6-10.3) mg/dl Magnesium 1.8 (1.7-2.4) mg/dl Total Bilirubin 0.6 (0.2-1.0) mg/dl Direct Bilirubin TNP AST TNP ALT 14 (7-52) U/L Alkaline Phosphatase 84 (34-104) U/L Troponin I High Sens 32.1 H (0-14) pg/ml Total Protein 7.5 (6.0-8.3) gm/dl Albumin 4.6 (3.4-5.0) gm/dl Procalcitonin (0-0.5) ng/ml Urine Color Urine Appearance (Clear) Urine pH (4.5-7.5) Ur Specific [place] (1.000-1.030) Urine Protein (Negative) Urine Glucose (UA) (Negative) Urine Ketones (Negative) Urine Blood (Negative) Urine Nitrite (Negative) Urine Bilirubin (Negative) Urine Urobilinogen (Negative) Ur Leukocyte Esterase (Negative) Urine WBC (Auto) (0-5) /hpf Urine RBC (Auto) (0-4) /hpf U Hyaline Cast (Auto) (0-5) /lpf U Epithel Cells (Auto) (0-5) /lpf Urine Bacteria (Auto) (Negative) SARS-CoV-2, RNA, NAAT (NEGATIVE) 06/12/23 06/12/23 06/12/23 Range/Units 15:47 15:50 15:55 WBC (4.8-10.8) K/ul RBC (4.20-5.40) M/uL Hgb (12.0-16.0) g/dl Hct (37.0-47.0) % MCV (80.0-100.0) fL MCH (25.0-34.0) pg MCHC (32.0-36.0) g/dL RDW Std Deviation (36.4-46.3) fL RDW Coeff of Charisma (11.5-14.5) % Plt Count (130-400) K/uL MPV (9.4-12.4) fL Immature Gran % (Auto) % Neut % (Auto) % Lymph % (Auto) % Mccracken % (Auto) % Eos % (Auto) % Baso % (Auto) % Neut # (Auto) (1.40-6.50) K/uL Lymph # (Auto) (1.20-3.40) K/uL Mccracken # (Auto) (0.11-0.59) K/uL Eos # (Auto) (0.00-0.50) K/uL Baso # (Auto) (0.00-0.20) K/uL Immature Gran # (Auto) (0.01-0.20) K/uL PT (9.0-12.0) Seconds INR (0.9-1.1) APTT (21.0-31.0) Seconds PTT Ratio Sodium (136-145) mmol/L Potassium Chloride (98-107) mmol/L Carbon Dioxide (21-32) mmol/L Anion Gap (3-11) BUN (6-23) mg/dl Creatinine (0.6-1.2) mg/dl Est Cr Clr Drug Dosing Est GFR ( Amer) ml/min Est GFR (Non-Af Amer) ml/min BUN/Creatinine Ratio (10-20) Glucose (70-99(Fasting)) mg/dl Lactate (0.4-2.0) mmol/L Calcium (8.6-10.3) mg/dl Magnesium (1.7-2.4) mg/dl Total Bilirubin (0.2-1.0) mg/dl Direct Bilirubin AST ALT (7-52) U/L Alkaline Phosphatase (34-104) U/L Troponin I High Sens (0-14) pg/ml Total Protein (6.0-8.3) gm/dl Albumin (3.4-5.0) gm/dl Procalcitonin < 0.05 (0-0.5) ng/ml Urine Color Dark Yellow Urine Appearance Cloudy A (Clear) Urine pH 5.0 (4.5-7.5) Ur Specific [place] 1.032 H (1.000-1.030) Urine Protein 2+ H (Negative) Urine Glucose (UA) Negative (Negative) Urine Ketones Trace H (Negative) Urine Blood Negative (Negative) Urine Nitrite Negative (Negative) Urine Bilirubin Negative (Negative) Urine Urobilinogen Negative (Negative) Ur Leukocyte Esterase Trace H (Negative) Urine WBC (Auto) 5-10 H (0-5) /hpf Urine RBC (Auto) 0-4 (0-4) /hpf U Hyaline Cast (Auto) 10-30 H (0-5) /lpf U Epithel Cells (Auto) >30 H (0-5) /lpf Urine Bacteria (Auto) 4+ H (Negative) SARS-CoV-2, RNA, NAAT NEGATIVE (NEGATIVE) 06/12/23 Range/Units 16:16 WBC (4.8-10.8) K/ul RBC (4.20-5.40) M/uL Hgb (12.0-16.0) g/dl Hct (37.0-47.0) % MCV (80.0-100.0) fL MCH (25.0-34.0) pg MCHC (32.0-36.0) g/dL RDW Std Deviation (36.4-46.3) fL RDW Coeff of Charisma (11.5-14.5) % Plt Count (130-400) K/uL MPV (9.4-12.4) fL Immature Gran % (Auto) % Neut % (Auto) % Lymph % (Auto) % Mccracken % (Auto) % Eos % (Auto) % Baso % (Auto) % Neut # (Auto) (1.40-6.50) K/uL Lymph # (Auto) (1.20-3.40) K/uL Mccracken # (Auto) (0.11-0.59) K/uL Eos # (Auto) (0.00-0.50) K/uL Baso # (Auto) (0.00-0.20) K/uL Immature Gran # (Auto) (0.01-0.20) K/uL PT (9.0-12.0) Seconds INR (0.9-1.1) APTT (21.0-31.0) Seconds PTT Ratio Sodium (136-145) mmol/L Potassium Chloride (98-107) mmol/L Carbon Dioxide (21-32) mmol/L Anion Gap (3-11) BUN (6-23) mg/dl Creatinine (0.6-1.2) mg/dl Est Cr Clr Drug Dosing Est GFR ( Amer) ml/min Est GFR (Non-Af Amer) ml/min BUN/Creatinine Ratio (10-20) Glucose (70-99(Fasting)) mg/dl Lactate 1.6 (0.4-2.0) mmol/L Calcium (8.6-10.3) mg/dl Magnesium (1.7-2.4) mg/dl Total Bilirubin (0.2-1.0) mg/dl Direct Bilirubin AST ALT (7-52) U/L Alkaline Phosphatase (34-104) U/L Troponin I High Sens (0-14) pg/ml Total Protein (6.0-8.3) gm/dl Albumin (3.4-5.0) gm/dl Procalcitonin (0-0.5) ng/ml Urine Color Urine Appearance (Clear) Urine pH (4.5-7.5) Ur Specific [place] (1.000-1.030) Urine Protein (Negative) Urine Glucose (UA) (Negative) Urine Ketones (Negative) Urine Blood (Negative) Urine Nitrite (Negative) Urine Bilirubin (Negative) Urine Urobilinogen (Negative) Ur Leukocyte Esterase (Negative) Urine WBC (Auto) (0-5) /hpf Urine RBC (Auto) (0-4) /hpf U Hyaline Cast (Auto) (0-5) /lpf U Epithel Cells (Auto) (0-5) /lpf Urine Bacteria (Auto) (Negative) SARS-CoV-2, RNA, NAAT (NEGATIVE) Imaging Data Attestation: I personally reviewed and interpreted this imaging study as follows: My Impression: Chest x-ray interpreted by me negative for infiltrate Radiologist's Impression: Chest X-Ray 06/12/23 15:18 XR chest 1V portable CLINICAL HISTORY: Sepsis. COMPARISON STUDY: Chest radiograph April 30, 2022. FINDINGS: Dual lead right subclavian pacer, median sternotomy wires and mediastinal surgical clips are noted. Moderate cardiomegaly is unchanged. Mild interstitial thickening is present. No consolidation is present. There is no pneumothorax or pleural effusion. IMPRESSION: Cardiomegaly with mild interstitial pulmonary edema. ACT 112: Negative or not required by law. Electronically signed by: Deyvi Casarez M.D. 06/12/2023 4:06 PM ECG Data Attestation: I personally reviewed and interpreted this ECG as follows: Additional Comments: EKG interpreted by me, paced rhythm rate of 65 first-degree AV block left axis deviation, left anterior hemiblock Telemetry was ordered by , interpreted as paced rhythm rate of 65 MDM Narrative Medical decision making differential diagnosis includes urinary tract infection, dementia, electrolyte abnormality, metabolic derangement, sepsis Plan is to check labs, urine, sepsis protocol External medical records were reviewed by me Medical command was given to the EMS agency by Patient has a history of dementia, likely has a urinary tract infection, has aggressive behavior, the case was discussed with the [facility] hospitalist for admission Impression & Plan Acute UTI (urinary tract infection), Agitation due to dementia Discharge Plan Visit Data Chief Complaint: Illness ED Provider: Jordin Matta Discharge Problem: Acute UTI (urinary tract infection), Agitation due to dementia Patient Disposition: Admitted As Inpatient Forms Stand Alone Forms: My [facility] Prescriptions Prescriptions: No Action propafenone 150 mg tablet 150 mg PO Q8H Qty: 90 1RF melatonin 5 mg tablet 5 mg PO HS cholecalciferol (vitamin D3) 5,000 unit capsule 5,000 units PO QAM levothyroxine 50 mcg tablet 50 mcg PO DAILYBB Rx Instructions: TAKE 1 TABLET BY MOUTH ONCE DAILY acetaminophen [Tylenol Extra Strength] 500 mg Tablet 500 mg PO Q8 cyanocobalamin (vitamin B-12) [Vitamin B-12] 1,000 mcg Tablet 1,000 mcg PO DAILY Rx Instructions: takes after lunch thiamine HCl (vitamin B1) 100 mg tablet 100 mg PO DAILY pantoprazole 40 mg tablet,delayed release (DR/EC) 40 mg PO DAILY acetaminophen 650 mg Suppository 650 mg MS Q4H PRN (Reason: Fever Or Pain) magnesium hydroxide [Milk of Magnesia] 400 mg/5 mL Suspension 30 ml PO .DAILY UD PRN (Reason: Constipation) hyoscyamine sulfate 0.125 mg Tablet 0.125 mg PO Q4 PRN (Reason: .RESP SECRETIONS/NOISY BREATHING) aspirin 81 mg Tablet,Delayed Release (Dr/Ec) 81 mg PO BID Qty: 82 0RF escitalopram oxalate 5 mg tablet 5 mg PO DAILY Qty: 30 0RF lorazepam 0.5 mg Tablet 0.5 mg sublingual Q4 PRN (Reason: .RESTLESSNESS/INSOMNIA) Qty: 3 0RF Rx Instructions: CAN ALSO HAVE RECTALLY oxycodone 5 mg Tablet 5 mg PO Q4H PRN (Reason: .MILD TO MOD PAIN) Qty: 10 0RF fentanyl 12 mcg/hr patch 72 hour 1 patch topical [id number] Qty: 5 0RF Morphine Sulf 100mg/5ml 5 mg sublingual .Q2HR PRN (Reason: Severe Pain (Scale Score 7-10)) Qty: 30 0RF Rx Instructions: CAN ALSO HAVE PO metoprolol tartrate 25 mg Tablet 12.5 mg PO BID Rx Instructions: HOLD IF SBP <95 OR HR <60 Senna Plus 8.6-50 mg Capsule 2 tab-cap PO HS Referrals Referrals: Kenna Knapp [Primary Care Provider] -
--- NOTE | 2023-06-12 16:09 | XRay Report ---
XR chest 1V portable CLINICAL HISTORY: Sepsis. COMPARISON STUDY: Chest radiograph April 30, 2022. FINDINGS: Dual lead right subclavian pacer, median sternotomy wires and mediastinal surgical clips ar e noted. Moderate cardiomegaly is unchanged. Mild interstitial thickening is present. No consolidatio n is present. There is no pneumothorax or pleural effusion. IMPRESSION: Cardiomegaly with mild interstitial pulmonary edema. ACT 112: Negative or not required by law. Electronically signed by: Deyvi Casarez M.D. 06/12/2023 4:06 PM
[2023-06-12 16:19] LABS: Basophils # (auto) 0.07 K/uL (0.00-0.20); Basophils % (auto) 1.2 %; Eosinophils # (auto) 0.18 K/uL (0.00-0.50); Hematocrit (blood only) 36.4 % (37.0-47.0); Immature Granulocytes # (auto) 0.02 K/uL (0.01-0.20); Immature Granulocytes % (auto) 0.3 %; Lymphocytes # (auto) 1.48 K/uL (1.20-3.40); Lymphocytes % (auto) 24.3 %; Mean Corpuscular Volume 94.1 fL (80.0-100.0); Mean Platelet Volume 11.4 fL (9.4-12.4); Monocytes # (auto) 0.44 K/uL (0.11-0.59); Monocytes % (auto) 7.2 %; Neutrophils # (auto) 3.89 K/uL (1.40-6.50); Platelet Count 212 K/uL (130-400); RDW Coefficient of Variation 14.6 % (11.5-14.5); RDW Standard Deviation 50.2 fL (36.4-46.3); Red Blood Count 3.87 M/uL (4.20-5.40); White Blood Count 6.08 K/ul (4.8-10.8)
[2023-06-12 16:27] LABS: Appearance Urine Cloudy (Clear); Bacteria Urine Automated 4+ (Negative); Bilirubin Urine Negative (Negative); Blood Urine Negative (Negative); Color Urine Dark Yellow; Epithelial Cell Urine Auto >30 /lpf (0-5); Glucose Urine UA Negative (Negative); Ketones Urine Trace (Negative); Leukocyte Esterase Urine Trace (Negative); Nitrite Urine Negative (Negative); Protein Urine 2+ (Negative); RBC Urine Automated 0-4 /hpf (0-4); Specific Gravity Urine 1.032 (1.000-1.030); Urobilinogen Urine Negative (Negative)
[2023-06-12 16:35] LABS: Alanine Aminotransferase 14 U/L (7-52); Albumin Level 4.6 gm/dl (3.4-5.0); Alkaline Phosphatase 84 U/L (34-104); Anion Gap 7 (3-11); BUN Creatinine Ratio 32.3 (10-20); Bilirubin,Total 0.6 mg/dl (0.2-1.0); Blood Urea Nitrogen 31 mg/dl (6-23); Calcium 9.8 mg/dl (8.6-10.3); Carbon Dioxide 25 mmol/L (21-32); Chloride 102 mmol/L (98-107); Est GFR (African American) 60.8 ml/min; Est GFR (Non-African American) 52.4 ml/min; Glucose 183 mg/dl (70-99(Fasting)); Magnesium 1.8 mg/dl (1.7-2.4); Sodium 134 mmol/L (136-145); Total Protein 7.5 gm/dl (6.0-8.3)
[2023-06-12 16:39] LABS: Troponin I High Sensitivity 32.1 pg/ml (0-14)
[2023-06-12] MEDS ORDERED: cefTRIAXone SODIUM 2,000 MG/70 ML BAG IV STA (16:46)
[2023-06-12 16:47] LABS: Partial Thromboplastin Ratio 0.9; Partial Thromboplastin Time 26.6 Seconds (21.0-31.0); Prothrombin Time 11.4 Seconds (9.0-12.0)
--- NOTE | 2023-06-12 17:05 | History & Physical Report ---
Date of Service June 12, 2023 Assessment & Plan (1) Agitation due to dementia: (2) Alzheimer's dementia: (3) Acute UTI (urinary tract infection): Plan: Patient is 88-year-old female with PMH Alzheimer's dementia with psychotic disturbance, paroxysmal atrial fibrillation, DM II, CKD III, hypothyroidism, CAD s/p CABG, osteoarthritis, HTN presented to ER from [facility] for increased confusion and agitation Suspect secondary to underlying UTI, possible med side effect as well In ER afebrile, vitals stable, no leukocytosis. UA: 4+ bacteria, trace leuk esterase, 5-10 WBC, >30 epithelial Was given 1 mg IM Ativan in route and patient currently somnolent CT head without acute intracranial findings In ER given Rocephin Continue IV Rocephin. Patient has received Rocephin prior hospitalizations without reported issues. Urine culture pending Monitor patient, monitor for delirium One-to-one observation as needed Hold home hydrocodone, melatonin at this time and monitor cognitive status If no improvements may need to consider psychiatry consult CBC, BMP in a.m. (4) Elevated troponin: Plan: High-sensitivity troponin: 32. EKG paced rhythm per my interpretation Trend troponin If troponins uptrending consider echo, cardiology consult (5) Paroxysmal atrial fibrillation: Plan: Not on anticoagulation Current paced rhythm Continue propafenone, metoprolol tartrate (6) Type 2 diabetes mellitus: Plan: A1c: 7.0 on 03/24/2023 Not on glycemic medication Random glucose 181 Naloxone as here per protocol (7) CKD (chronic kidney disease), stage III: Plan: Cr: 0.96. Baseline~0.9. Cr: 1.1 on 05/26/2023 Monitor renal functions, avoid nephrotoxic agents when possible (8) CAD (coronary artery disease): Plan: S/p CABG Trending troponins as above Continue metoprolol tartrate (9) Osteoarthritis: Plan: With reported chronic pain, on hydrocodone Will hold hydrocodone currently with altered mental status (10) Essential hypertension: Plan: Continue amlodipine, Toprol tartrate (11) Hypothyroidism: Plan: Continue levothyroxine TSH a.m. labs DVT Prophylaxis SQ Heparin DNR/DNI as per discussion with patient's daughter on phone Follows with Dr Knapp for routine care Pt was seen and care coordinated with Dr Corcoran. See addendum I spent a total of 76 minutes reviewing notes, outpatient records, labs, medication, coordinating, discussing with family and documenting and providing care for this patient excluding time spent in the performance of separately billed services. History of Present Illness Chief Complaint: [facility] Primary Care Provider: Kenna Knapp Patient is 88-year-old female with PMH Alzheimer's dementia with psychotic disturbance, paroxysmal atrial fibrillation, DM II, CKD III, hypothyroidism, CAD s/p CABG, osteoarthritis, HTN presented to ER from [facility] for increased confusion. Unable to obtain history from patient secondary to patient's cognitive status. History obtained from ER staff as well as outpatient chart re view. Patient currently resides at [facility]. Per outpatient records patient has been having intermittent hallucinations for the past several weeks. Patient was started on melatonin at bedtime as she had been having noted difficulty and not sleeping at night. Initially started on melatonin 5 mg daily which was increased to 10 mg daily on 06/09/2023. Previously Lexapro had been stopped secondary to patient's increased confusion however there has been no reported change in patient's cognition since stopping Lexapro. Reportedly had a positive urine dip and was treated with nitrofurantoin for UTI 06/01/23. Unable to review those urine records. Spoke to patients daughter on phone who states for the past week patient has been more agitated. Today it is reported patient verbally abusive and increasingly agitated and was unable to be redirected and EMS was called. EMS gave patient 1 mg IM Ativan in route. Upon ER arrival patient somnolent and sleeping. Called [facility] to obtain further information however they are unable to be reached at this time. Daughter is unaware of any reported fevers but is unsure. Allergies Allergy/AdvReac Type Severity Reaction Status Date / Time Iodinated Contrast Media Allergy Severe Hives Verified 06/12/23 17:39 Penicillins Allergy Intermediate HIVES Verified 06/12/23 17:39 Home Medications Medication Instructions Recorded Confirmed Type propafenone 150 mg tablet 150 mg PO Q8H #90 tabs 12/23/21 06/12/23 Rx levothyroxine 50 mcg tablet 50 mcg PO DAILYBB 01/16/22 06/12/23 History metoprolol tartrate 25 mg tablet 12.5 mg PO AMHS 03/10/22 06/12/23 History sennosides 8.6 mg-docusate sodium 1 tab-cap PO AMPM 03/10/22 06/12/23 History 50 mg capsule (Senna Plus) acetaminophen 650 mg rectal 650 mg IA Q4H PRN Fever Or Pain 04/30/22 06/12/23 History suppository magnesium hydroxide 400 mg/5 mL 30 ml PO .DAILY UD PRN Constipation 04/30/22 06/12/23 History oral suspension (Milk of Magnesia) acetaminophen 325 mg tablet 650 mg PO Q4 PRN Fever Or Pain 06/12/23 06/12/23 History (Tylenol) amlodipine 5 mg tablet 5 mg PO DAILY 06/12/23 06/12/23 History diclofenac sodium 1 % topical gel 2 g topical BID 8 grams 06/12/23 06/12/23 History food supplemt, lactose-reduced 1 ea PO BID 06/12/23 06/12/23 History hydrocodone 5 mg-acetaminophen 325 1 tab PO BID 06/12/23 06/12/23 History mg tablet melatonin 10 mg tablet 10 mg PO QPM 06/12/23 06/12/23 History pantoprazole 20 mg tablet,delayed 20 mg PO AMHS 06/12/23 06/12/23 History release Past Med/Surg History Medical History (Updated 06/12/23 @ 18:00 by Luzmaria Andres PA-C) Acute GI bleeding Anemia Anticoagulant long-term use Anxiety Aortic stenosis, severe CAD (coronary artery disease) Chronic diastolic congestive heart failure CKD (chronic kidney disease) CKD (chronic kidney disease), stage III CVA (cerebral vascular accident) Dementia DVT prophylaxis Dyslipidemia Essential hypertension Fall GERD without esophagitis H/O non-ST elevation myocardial infarction (NSTEMI) History of pneumonia Hypothyroidism Mild cognitive impairment Osteoarthritis Paroxysmal atrial fibrillation Recurrent falls TIA (transient ischemic attack) Type 2 diabetes mellitus Urinary incontinence Surgical History History of hysterectomy Hx of CABG S/P cardiac pacemaker procedure S/P lumpectomy of breast Status post carotid surgery L CEA Status post cholecystectomy Family History Family/Other No problems noted. Brother Cardiac disorder Stroke Hypertension Lung disease Mother Stroke Father Stroke Sister Lung cancer Malignant neoplasm of urinary bladder Denies family history of Colon cancer Ovarian cancer Prostate cancer Myocardial infarction Breast cancer Social History Smoking Status: Unknown if ever smoked Age Started Using Tobacco: 17; Age Quit Using Tobacco: 29; packs per day: 0.5; Second Hand Exposure: No; Do You Dip or Chew Tobacco: No; Hx Alcohol Use: No Hx Substance Use: No Preferred Language: Guatemalan Communication Ability: Impaired Communication Ability Comment: hard of hearing Visual Impairment: Limited Hearing Ability: Use of Hearing Aid 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 Beliefs That Will Affect Care: None marital status: / Current Living Situation: Personal Care Facility Current Living Situation Comment: [facility] current occupational status: retired How many Children do You have: 2 Feels Safe at Home: Declines to Answer Childhood Exposure to Second-Hand Smoke: Yes Diet: regular caffeine: Yes during the past year weight has: remained stable Dental Care, Regularly: Yes Physical Activity Frequency: Other Physical Activity Frequency Comment: limited by phusical condition Seatbelt Use: always Sunscreen Use: No Assistive Devices: Walker Review of Systems Review of Systems: All systems reviewed & are unremarkable except as noted in HPI & below Physical Exam Physical Exam: General: +sleeping, no distress, WDWN Head: normocephalic, atraumatic Eyes: PERRL, EOM's unable to be tested, conjunctiva non-injected, anicteric ENT: normal inspection external ears, nose, mucous membranes moist Neck: supple, trachea midline Lungs: clear, no respiratory distress, no wheezing/rhonchi/rales CV: RRR, no murmur,no pretibial edema Abd: normal BS, soft, no apparent tenderness to palpation Ext: no cyanosis, no erythema, no apparent tenderness Neuro: +somnolent at this time Skin: warm, dry Results & Data Results & Data Vital Signs (Past 12 Hours) Vital Signs Pulse Resp BP Pulse Ox O2 Del Method 06/12/23 15:18 94 Room Air 06/12/23 15:11 65 20 162/72 H 94 Room Air Laboratory Results Short CBC 06/12/23 Range/Units 15:47 WBC 6.08 (4.8-10.8) K/ul Hgb 12.0 (12.0-16.0) g/dl Hct 36.4 L (37.0-47.0) % Plt Count 212 (130-400) K/uL BMP 06/12/23 15:47 Sodium 134 L Potassium TNP Chloride 102 Carbon Dioxide 25 BUN 31 H Creatinine 0.96 Glucose 183 H Calcium 9.8 Liver Function 06/12/23 Range/Units 15:47 Total Bilirubin 0.6 (0.2-1.0) mg/dl Direct Bilirubin TNP AST TNP ALT 14 (7-52) U/L Alkaline Phosphatase 84 (34-104) U/L Albumin 4.6 (3.4-5.0) gm/dl Urine 06/12/23 Range/Units 15:55 Urine Color Dark Yellow Urine Appearance Cloudy A (Clear) Urine pH 5.0 (4.5-7.5) Ur Specific Napoleon 1.032 H (1.000-1.030) Urine Protein 2+ H (Negative) Urine Glucose (UA) Negative (Negative) Diagnostic Findings Chest X-Ray 06/12/23 15:18 XR chest 1V portable CLINICAL HISTORY: Sepsis. COMPARISON STUDY: Chest radiograph April 30, 2022. FINDINGS: Dual lead right subclavian pacer, median sternotomy wires and mediastinal surgical clips are noted. Moderate cardiomegaly is unchanged. Mild interstitial thickening is present. No consolidation is present. There is no pneumothorax or pleural effusion. IMPRESSION: Cardiomegaly with mild interstitial pulmonary edema. ACT 112: Negative or not required by law. Electronically signed by: Deyvi Casarez M.D. 06/12/2023 4:[address] 06/12/23 17:43 CT OF THE HEAD WITHOUT CONTRAST CLINICAL HISTORY: Altered mental status. COMPARISON STUDY: Head CT March 25, 2022. CT DOSE: 625.80 mGy.cm TECHNIQUE: Helical axial images of the head were obtained without IV contrast. Automated exposure control was utilized for the study. A dose lowering technique was utilized adhering to the principles of ALARA. FINDINGS: No acute intracranial hemorrhage, midline shift or mass effect is present. The ventricular system is stable. White matter hypodensities are unchanged. Encephalomalacia suggestive of old infarcts within the right frontal lobe and left cerebellar hemisphere are unchanged. There has been no change in appearance of the brain. The basal cisterns are patent. No extra-axial collections are present. There are no findings to suggest acute dural sinus thrombosis or acute territorial infarct. No significant calvarial abnormalities are present. Visualized portions of the sinuses and mastoid air cells are clear. IMPRESSION: No acute intracranial findings. No change in appearance of the brain. ACT 112: Negative or not required by law. Electronically signed by: Deyvi Casarez M.D. 06/12/2023 6:49 PM ECG Additional Comments: EKG paced rhythm, rate 65, RBBB per my interpretation Supervising Physician Co-Signing Physician Notes Pt is a 88 y/o F with hx of Severe dementia, CAD s/p CABG, Severe Aortic stenosis with Afib (not on AC) s/p pacemaker, hypothyroidism, CKD III, DMII, Insomnia admitted for worsening AMS with UTI PE: Pt received ativan on the way to the ER therefore pt was sleeping during the exam -pt responded to verbal stimuli HEENT: PERRLA, no facial droop Lungs: CTA, no wheezing or crackles Cardiac: Systolic murmur, Normal S1/S2 Abd: ND, NT, soft MSK: no LE edema A/P: AMS: -likely 2/2 UTI -will obtain CT head - will hold her prn hydrocodone, haloperidol and melatonin -pt has underlying severe dementia ---- will do 1:1 prn -started the pt on Ceftriaxone for UTI Elevated trop: -EKG: paced rhythm, TWI on V1-V6, lead II, III and vF -will trend trop -pt does hx of CAD s/p CABG -will obtain echo if the trop continues to trend up Other chronic conditions: plan as above Agree with A/P by Luzmaria Andres PA-C
--- NOTE | 2023-06-12 17:39 | Electrocardiogram Report ---
Test Reason : Blood Pressure : / mmHG Vent. Rate : 065 BPM Atrial Rate : 065 BPM P-R Int : 224 ms QRS Dur : 172 ms QT Int : 478 ms P-R-T Axes : 000 -34 -43 degrees QTc Int : 497 ms Atrial-paced rhythm with prolonged AV conduction Left axis deviation Right bundle branch block T wave abnormality, consider inferolateral ischemia Abnormal ECG When compared with ECG of 30-APR-2022 13:38, Left anterior fascicular block is no longer Present Borderline criteria for Inferior infarct are no longer Present T wave inversion now evident in Inferior leads T wave inversion less evident in Lateral leads Confirmed by Darrell Reyes ([id number]) on 06/12/2023 5:38:49 PM Referred By: Confirmed By:Prasanna Reyes
[2023-06-12 18:09] LABS: Aspartate Aminotransferase 18 U/L (13-39); Potassium 4.4 mmol/L (3.5-5.1)
--- NOTE | 2023-06-12 18:51 | CT Scan Report ---
CT OF THE HEAD WITHOUT CONTRAST CLINICAL HISTORY: Altered mental status. COMPARISON STUDY: Head CT March 25, 2022. CT DOSE: 625.80 mGy.cm TECHNIQUE: Helical axial images of the head were obtained without IV contrast. Automated exposure con trol was utilized for the study. A dose lowering technique was utilized adhering to the principles o f ALARA. FINDINGS: No acute intracranial hemorrhage, midline shift or mass effect is present. The ventricular system is stable. White matter hypodensities are unchanged. Encephalomalacia suggestive of old infarc ts within the right frontal lobe and left cerebellar hemisphere are unchanged. There has been no bajwa ge in appearance of the brain. The basal cisterns are patent. No extra-axial collections are present. There are no findings to suggest acute dural sinus thrombosis or acute territorial infarct. No signi ficant calvarial abnormalities are present. Visualized portions of the sinuses and mastoid air cells are clear. IMPRESSION: No acute intracranial findings. No change in appearance of the brain. ACT 112: Negative or not required by law. Electronically signed by: Deyvi Casarez M.D. 06/12/2023 6:49 PM
[2023-06-12] MEDS ORDERED: ONDANSETRON INJ 2 MG/ML 2 ML VIAL IV PRN (19:14)
[2023-06-12] MEDS ORDERED: DEXTROSE 50% 50 ML SYRINGE IV PRN (19:14)
[2023-06-12] MEDS ORDERED: GLUCAGON FOR INJ 1 MG VIAL SQ PRN (19:14)
[2023-06-12] MEDS ORDERED: GLUCOSE 10 TAB/TUBE PO PRN (19:14)
[2023-06-12] MEDS ORDERED: POLYETHYLENE (MIRALAX) 17 GM PACK PO PRN (19:14)
[2023-06-12] MEDS ORDERED: CARBOHYDRATES FOR HYPOGLYCEMIA PO PRN (19:14)
[2023-06-12] MEDS ORDERED: ACETAMINOPHEN 325 MG TAB PO PRN (19:14)
[2023-06-12] MEDS ORDERED: GLUCOSE 40% GEL 15 GM TUBE PO PRN (19:14)
[2023-06-12] MEDS ORDERED: NON-FORMULARY MEDICATION (Food Supplemt, Lactose-Reduced Liquid) PO SCH (21:00)
[2023-06-12 21:06] LABS: Troponin I High Sensitivity 32.5 pg/ml (0-14)
[2023-06-12] MEDS: INSULIN ASPART PER UNIT CHARGE SC SCH (21:50)
[2023-06-12] MEDS: DOCUSATE SODIUM/SENNA 50/8.6MG TAB PO SCH (22:12)
[2023-06-12] MEDS: PROPAFENONE HCL 150 MG TABLET PO SCH (22:13)
[2023-06-12] MEDS: HEPARIN SOD 5,000 UNIT/0.5 ML VIAL SQ SCH (22:14)
[2023-06-12] MEDS: METOPROLOL TARTRATE 25 MG TAB PO SCH (22:14)
[2023-06-12] MEDS: PANTOprazole 40 MG TAB PO SCH (22:14)
[2023-06-12] MEDS ORDERED: METOPROLOL TARTRATE 1 MG/ML VIAL IV STA (22:49)
[2023-06-12] MEDS ORDERED: amLODIPine BESYLATE 5 MG TAB PO SCH (22:50)
[2023-06-13 03:20] LABS: Hemoglobin 11.2 g/dl (12.0-16.0); Mean Corpuscular Hemoglobin 30.6 pg (25.0-34.0); Mean Corpuscular Hgb Conc 32.9 g/dL (32.0-36.0); Mean Corpuscular Volume 92.9 fL (80.0-100.0); Mean Platelet Volume 10.9 fL (9.4-12.4); Platelet Count 214 K/uL (130-400); RDW Coefficient of Variation 14.1 % (11.5-14.5); RDW Standard Deviation 48.2 fL (36.4-46.3); Red Blood Count 3.66 M/uL (4.20-5.40)
[2023-06-13 03:35] LABS: BUN Creatinine Ratio 28.6 (10-20); Calcium 9.1 mg/dl (8.6-10.3); Creatinine Clr Calc Pharmacy 32.6 ml/min; Est GFR (African American) 79.3 ml/min; Est GFR (Non-African American) 68.5 ml/min; Potassium 3.9 mmol/L (3.5-5.1)
[2023-06-13] MEDS: PROPAFENONE HCL 150 MG TABLET PO SCH ×3 (04:36→20:58)
[2023-06-13] MEDS: LEVOTHYROXINE SODIUM 50 MCG TABLET PO SCH (06:36)
--- NOTE | 2023-06-13 08:47 | Hospitalist Progress Note ---
Date of Service June 13, 2023 Assessment & Plan (1) Metabolic encephalopathy: Plan: Multiple possible causes of encephalopathy on admission Per daughter about 4 weeks of increased paranoia, and now 1 week of combativeness, in the setting of recent cessation of Lexapro, unclear why this was stopped, will need to speak to facility, no answer over the weekend Was put on Macrobid by outside facility for possible UTI, which can have mental status effects on the elderly Urinalysis this admission suggestive of infection, UCx unfortunately with multiple mixed lorena and unable to gather sensitivities or specific species, however has had E. coli UTI sensitive to Rocephin in the past so treating with this CT head without acute CVA however with chronic strokes in frontal lobe and cerebellum, could certainly contribute to executive function and mood issues Symptoms superimposed on patient with severe dementia at baseline, labeled as Alzheimer's Continue to monitor, symptoms improving and appears to be near baseline per report from daughter Holding hydrocodone, haloperidol Melatonin OK for sleep 1:1 PRN (2) Acute UTI (urinary tract infection): Plan: see above, UA dirty but with mental status changes and significant bacterial load on UCx will treat with Rocephin x5 days BCx x1 tube POSITIVE for GPC in clusters, PCR S. epidermidis POSITIVE, likely skin contaminant, will not empirically treat this (3) CVA (cerebral vascular accident): Plan: History of, noted as described above on CT head (4) Alzheimer's dementia: Plan: History of on chart, higher potential of hospital-related delirium (5) Type 2 diabetes mellitus: Plan: Diet controlled at home, BSGs well controlled this admission, SSI if necessary (6) Paroxysmal atrial fibrillation: Plan: Paced rhythm, HR appropriate with metoprolol tartrate 12.5 BID and propafenone 150mg TID Not on anticoagulation 2/2 risk of falls (7) Hypothyroidism: Plan: Continue levothyroxine (8) Chronic diastolic congestive heart failure: Plan: No evidence of failure on exam, not on diuretics chronically, monitor fluid status and low sodium diet Plan Ongoing care of likely UTI, possible medication-related encephalopathy, PT and OT ordered to aid in dispo planning Admission and Anticipated Discharge Date Admission Date: June 12, 2023 Supervising Physician Co-Signing Physician Notes Pt is a 88 y/o F with hx of severe dementia, CAD s/p CABG, Severe Aortic stenosis with Afib (not on AC) s/p pacemaker, hypothyroidism, CVA, CKD III, DMII, Insomnia admitted for worsening AMS with UTI AMS, metabolic encephalopathy: -Possibly 2/2 UTI vs. recent stop of Lexapro at outside facility in setting of severe dementia patient -CT Head with old frontal and cerebellar infarcts, no new lesions or acute CVA Elevated trop: -EKG: inferolateral T wave inversions, RBBB -Troponin trend 30s, no chest pain or SOB -Pt does hx of CAD s/p CABG Subjective Overnight slept very soundly, this morning per nursing is very pleasant, knows she is in the hospital because she is sick but not sure of details, has felt "not herself" for a few days. Denies chest pain, SOB, nausea, abdominal pain, pain or burning with urination. Physical Exam Constitutional: WD/WN, vitals as above Respiratory: normal respiratory effort, lungs clear to auscultation Cardiovascular: RRR, no murmur, no edema Gastrointestinal (Abdomen): normal bowel sounds, soft, nontender, no hepatosplenomegaly Skin: no rashes, warm and dry Psychiatric: alert and oriented to self and place, redirectable confusion Results & Data Results & Data Vital Signs (Past 12 Hours) Vital Signs Temp Pulse Pulse Resp BP BP Pulse Ox 06/13/23 07:53 36.2 C L 67 20 159/57 H 96 06/13/23 07:52 65 06/12/23 21:58 65 06/12/23 21:13 65 06/13/23 02:39 36.5 C 65 18 157/62 H 94 06/13/23 00:25 62 06/13/23 00:10 69 06/12/23 23:27 36.5 C 62 18 160/72 H 93 O2 Del Method 06/13/23 07:53 Room Air 06/13/23 07:52 06/12/23 21:58 06/12/23 21:13 06/13/23 02:39 Room Air 06/13/23 00:25 06/13/23 00:10 06/12/23 23:27 Room Air PG Care Time/CCT Total # of Minutes Spent Total Time Spent with Patient: Total time spent is greater than 50% in coordination of care (as documented) at patient's floor/unit and/or counseling patient: Coding Level of Care Code 19445 SUB INP/OBS CARE MIN Diagnoses Metabolic encephalopathy G93.41 Acute UTI (urinary tract infection) N39.0 CVA (cerebral vascular accident) I63.9 Alzheimer's dementia G30.9; F02.80 Type 2 diabetes mellitus E11.9 Paroxysmal atrial fibrillation I48.0 Hypothyroidism E03.9 Chronic diastolic congestive heart failure I50.32
[2023-06-13] MEDS: METOPROLOL TARTRATE 25 MG TAB PO SCH ×2 (08:58→20:59)
[2023-06-13] MEDS: PANTOprazole 40 MG TAB PO SCH ×2 (08:59→20:58)
[2023-06-13] MEDS: HEPARIN SOD 5,000 UNIT/0.5 ML VIAL SQ SCH ×2 (09:00→20:58)
[2023-06-13] MEDS ORDERED: amLODIPine BESYLATE 5 MG TAB PO SCH (09:00)
[2023-06-13] MEDS: DOCUSATE SODIUM/SENNA 50/8.6MG TAB PO SCH ×2 (09:05→21:00)
[2023-06-13] MEDS: amLODIPine BESYLATE 5 MG TAB PO SCH (09:05)
[2023-06-13] MEDS: INSULIN ASPART PER UNIT CHARGE SC SCH ×4 (09:07→21:26)
[2023-06-13] MEDS: cefTRIAXone SODIUM 2,000 MG in DEXTROSE 5% 50 ML IV SCH (09:13)
[2023-06-13] MEDS: ESCITALOPRAM OXALATE 10 MG TAB PO SCH (09:39)
[2023-06-13 13:44] LABS: A calco-baum cmplx NotReported Not Detected (NotDetected); Bact fragilis Not Reported Not Detected (NotDetected); C auris Not Reported Not Detected (NotDetected); Calbicans Not Reported Not Detected (NotDetected); Candida glabrata Not Reported Not Detected (NotDetected); Candida krusei Not Reported Not Detected (NotDetected); Cneoformans/gatti Not Reported Not Detected (NotDetected); Cparapsilosis Not Reported Not Detected (NotDetected); Ctropicalis Not Reported Not Detected (NotDetected); E cloacae compx Not Reported Not Detected (NotDetected); Efaecalis Not Reported Not Detected (NotDetected); Efaecium Not Reported Not Detected (NotDetected); Enterobacterales Not Reported Not Detected (NotDetected); Escherichia coli Not Reported Not Detected (NotDetected); H influenzae Not Reported Not Detected (NotDetected); K aerogenes Not Reported Not Detected (NotDetected); Koxytoca Not Reported Not Detected (NotDetected); Kpneumoniae grp Not Reported Not Detected (NotDetected); Lmonocyt Not Reported Not Detected (NotDetected); N meningitidis Not Reported Not Detected (NotDetected); P aeruginosa Not Reported Not Detected (NotDetected); Proteus spp Not Reported Not Detected (NotDetected); Salmonella spp Not Reported Not Detected (NotDetected); Smarcescens Not Reported Not Detected (NotDetected); Staph lugdunensis Not Reported Not Detected (NotDetected); Staph spp. Not Reported DETECTED (NotDetected); Staphaureus Not Reported Not Detected (NotDetected); Staphepi Not Reported DETECTED (NotDetected); Staphylococcus spp. DETECTED (NotDetected); Stenmaltophilia Not Reported Not Detected (NotDetected); Strep agal(GrpB) Not Reported Not Detected (NotDetected); Strep pneum Not Reported Not Detected (NotDetected); Strep pyog (GrpA) Not Reported Not Detected (NotDetected); Strep spp Not Reported Not Detected (NotDetected); mecAC Resistant Gene DETECTED (NotDetected)
[2023-06-13 13:49] LABS: Staphylococcus epidermidis DETECTED (NotDetected)
[2023-06-14] MEDS: PROPAFENONE HCL 150 MG TABLET PO SCH ×3 (03:30→20:12)
[2023-06-14] MEDS: LEVOTHYROXINE SODIUM 50 MCG TABLET PO SCH (05:29)
[2023-06-14] MEDS ORDERED: HALOPERIDOL LACTATE 5 MG/ML 1 ML VIAL IM STA (06:06)
--- NOTE | 2023-06-14 07:07 | Hospitalist Progress Note ---
Date of Service June 14, 2023 Assessment & Plan (1) Metabolic encephalopathy: Plan: -Multiple possible causes of encephalopathy on admission -Per daughter about 4 weeks of increased paranoia, and now 1 week of intermittent combativeness, in the setting of recent cessation of Lexapro (per facility thought perhaps this was causing mood changes) -Was put on Macrobid by outside facility for possible UTI, which can have mental status effects on the elderly, not getting this inpatient -Urinalysis this admission suggestive of infection, UCx unfortunately with multiple mixed lorena and unable to gather sensitivities or specific species, however has had E. coli UTI sensitive to Rocephin in the past so treating with this -CT head without acute CVA however with chronic strokes in frontal lobe and cerebellum, could certainly contribute to executive function and mood issues -Symptoms superimposed on patient with severe dementia at baseline, labeled as Alzheimer's -Continue to monitor, symptoms generally improving and appears to be near baseline per report from daughter/facility -Holding hydrocodone, will start nightly low dose Zyprexa to hopefully help with sleep and symptoms of aggressive delirium -1:1 PRN (2) Acute UTI (urinary tract infection): Plan: -See above, UA dirty but with mental status changes and significant bacterial load on UCx will treat with Rocephin x5 days -BCx x1 tube POSITIVE for CoNS not lugdunensis, PCR S. epidermidis POSITIVE, likely skin contaminant, will not empirically treat this (3) CVA (cerebral vascular accident): Plan: -History of, noted as described above on CT head (4) Alzheimer's dementia: Plan: -History of on chart, higher potential of hospital-related delirium (5) Type 2 diabetes mellitus: Plan: -Diet controlled at home, BSGs well controlled this admission, SSI if necessary (6) Paroxysmal atrial fibrillation: Plan: -Paced rhythm, HR appropriate with metoprolol tartrate 12.5 BID and propafenone 150mg TID -Not on anticoagulation 2/2 risk of falls (7) Hypothyroidism: Plan: -Continue levothyroxine (8) Chronic diastolic congestive heart failure: Plan: -No evidence of failure on exam, not on diuretics chronically, monitor fluid status and low sodium diet Plan Ongoing care of likely UTI, possible medication-related encephalopathy, PT and OT ordered to aid in dispo planning Admission and Anticipated Discharge Date Admission Date: June 12, 2023 Subjective No overnight events, however early this AM was verbally aggressive with staff, concern for safety and therefore received Haldol 2.5mg IM x1 with effect at calming patient down. During my interview a bit later in the AM patient knows who she is, but thinks she is going on a road trip with her parents tomorrow. Per patient's daughter, this is typical behavior and sometimes gets agitated when people try to reorient her or she gets worse confusion about where she is. She denies chest pain or SOB, denies abdominal pain, not nauseated. Physical Exam Constitutional: WD/WN, vitals as above Respiratory: normal respiratory effort, lungs clear to auscultation Cardiovascular: RRR, no murmur, no edema Gastrointestinal (Abdomen): normal bowel sounds, soft, nontender, no hepatosplenomegaly Skin: no rashes, warm and dry Psychiatric: alert and oriented to self only, confused Results & Data Results & Data Vital Signs (Past 12 Hours) Vital Signs Temp Pulse Pulse Resp BP Pulse Ox O2 Del Method 06/13/23 23:14 65 06/14/23 04:13 36.7 C 66 20 115/59 L 92 Room Air 06/14/23 03:35 Room Air 06/13/23 23:24 36.7 C 65 20 124/58 L 94 Room Air 06/13/23 20:25 36.8 C 64 20 119/61 92 Room Air PG Care Time/CCT Total # of Minutes Spent Total Time Spent with Patient: Total time spent is greater than 50% in coordination of care (as documented) at patient's floor/unit and/or counseling patient: Coding Level of Care Code 77048 SUB INP/OBS CARE 2/35MIN Diagnoses Metabolic encephalopathy G93.41 Acute UTI (urinary tract infection) N39.0 CVA (cerebral vascular accident) I63.9 Alzheimer's dementia G30.9; F02.80 Type 2 diabetes mellitus E11.9 Paroxysmal atrial fibrillation I48.0 Hypothyroidism E03.9 Chronic diastolic congestive heart failure I50.32
[2023-06-14] MEDS: INSULIN ASPART PER UNIT CHARGE SC SCH ×4 (09:21→20:14)
[2023-06-14] MEDS: DOCUSATE SODIUM/SENNA 50/8.6MG TAB PO SCH ×2 (09:22→20:11)
[2023-06-14] MEDS: cefTRIAXone SODIUM 2,000 MG in DEXTROSE 5% 50 ML IV SCH ×2 (09:24→12:27)
[2023-06-14] MEDS: METOPROLOL TARTRATE 25 MG TAB PO SCH ×2 (09:24→20:11)
[2023-06-14] MEDS: HEPARIN SOD 5,000 UNIT/0.5 ML VIAL SQ SCH ×2 (09:24→20:10)
[2023-06-14] MEDS: PANTOprazole 40 MG TAB PO SCH ×2 (09:24→20:11)
[2023-06-14] MEDS: amLODIPine BESYLATE 5 MG TAB PO SCH (09:24)
[2023-06-14] MEDS: ESCITALOPRAM OXALATE 10 MG TAB PO SCH (09:24)
[2023-06-14 09:44] LABS: Hematocrit (blood only) 34.4 % (37.0-47.0); Hemoglobin 11.4 g/dl (12.0-16.0); Mean Corpuscular Hemoglobin 30.9 pg (25.0-34.0); Mean Corpuscular Hgb Conc 33.1 g/dL (32.0-36.0); Mean Corpuscular Volume 93.2 fL (80.0-100.0); Mean Platelet Volume 11.3 fL (9.4-12.4); Platelet Count 221 K/uL (130-400); RDW Coefficient of Variation 14.3 % (11.5-14.5); RDW Standard Deviation 48.4 fL (36.4-46.3); Red Blood Count 3.69 M/uL (4.20-5.40); White Blood Count 7.45 K/ul (4.8-10.8)
[2023-06-14 10:04] LABS: Calcium 9.3 mg/dl (8.6-10.3); Creatinine Clr Calc Pharmacy 26.1 ml/min; Est GFR (African American) 57.8 ml/min; Est GFR (Non-African American) 49.9 ml/min
[2023-06-14] MEDS ORDERED: OLANZAPINE 2.5 MG TAB PO SCH (21:00)
[2023-06-14] MEDS ORDERED: ACETAMINOPHEN 1,000 MG/100 ML VIAL IV PRN (23:32)
[2023-06-15] MEDS: PROPAFENONE HCL 150 MG TABLET PO SCH ×2 (05:28→13:12)
[2023-06-15] MEDS: LEVOTHYROXINE SODIUM 50 MCG TABLET PO SCH (05:30)
[2023-06-15] MEDS: cefTRIAXone SODIUM 2,000 MG in DEXTROSE 5% 50 ML IV SCH (07:51)
[2023-06-15] MEDS: INSULIN ASPART PER UNIT CHARGE SC SCH ×2 (09:23→13:18)
[2023-06-15] MEDS: PANTOprazole 40 MG TAB PO SCH (09:41)
[2023-06-15] MEDS: ESCITALOPRAM OXALATE 10 MG TAB PO SCH (09:41)
[2023-06-15] MEDS: amLODIPine BESYLATE 5 MG TAB PO SCH (09:41)
[2023-06-15] MEDS: METOPROLOL TARTRATE 25 MG TAB PO SCH (09:43)
[2023-06-15] MEDS: DOCUSATE SODIUM/SENNA 50/8.6MG TAB PO SCH (09:47)
[2023-06-15] MEDS: HEPARIN SOD 5,000 UNIT/0.5 ML VIAL SQ SCH (09:47)
--- NOTE | 2023-06-15 12:43 | Discharge Summary ---
Discharge Summary Date of Service June 15, 2023 Admission HPI Per Admitting Provider Patient is 88-year-old female with PMH Alzheimer's dementia with psychotic disturbance, paroxysmal atrial fibrillation, DM II, CKD III, hypothyroidism, CAD s/p CABG, osteoarthritis, HTN presented to ER from [facility] for increased confusion. Unable to obtain history from patient secondary to patient's cognitive status. History obtained from ER staff as well as outpatient chart review. Patient currently resides at [facility]. Per outpatient records patient has been having intermittent hallucinations for the past several weeks. Patient was started on melatonin at bedtime as she had been having noted difficulty and not sleeping at night. Initially started on melatonin 5 mg daily which was increased to 10 mg daily on 06/09/2023. Previously Lexapro had been stopped secondary to patient's increased confusion however there has been no reported change in patient's cognition since stopping Lexapro. Reportedly had a positive urine dip and was treated with nitrofurantoin for UTI 06/01/23. Unable to review those urine records. Spoke to patients daughter on phone who states for the past week patient has been more agitated. Today it is reported patient verbally abusive and increasingly agitated and was unable to be redirected and EMS was called. EMS gave patient 1 mg IM Ativan in route. Upon ER arrival patient somnolent and sleeping. Called [facility] to obtain further information however they are unable to be reached at this time. Daughter is unaware of any reported fevers but is unsure. Admission Exam Per Admitting Provider General: +sleeping, no distress, WDWN Head: normocephalic, atraumatic Eyes: PERRL, EOM's unable to be tested, conjunctiva non-injected, anicteric ENT: normal inspection external ears, nose, mucous membranes moist Neck: supple, trachea midline Lungs: clear, no respiratory distress, no wheezing/rhonchi/rales CV: RRR, no murmur,no pretibial edema Abd: normal BS, soft, no apparent tenderness to palpation Ext: no cyanosis, no erythema, no apparent tenderness Neuro: +somnolent at this time Skin: warm, dry Principal Dx & Hospital Course #1 = Principal Diagnosis (1) Metabolic encephalopathy: (2) Acute UTI (urinary tract infection): (3) CVA (cerebral vascular accident): (4) Alzheimer's dementia: (5) Type 2 diabetes mellitus: (6) Paroxysmal atrial fibrillation: (7) Hypothyroidism: (8) Chronic diastolic congestive heart failure: Plan Metabolic encephalopathy: -Multiple suspected causes of encephalopathy on admission -Per daughter about 4 weeks of increased paranoia, and now 1 week of intermittent combativeness, in the setting of recent cessation of Lexapro (per facility thought perhaps this was causing mood changes) -Was put on Macrobid by outside facility for possible UTI, which can have mental status effects on the elderly -Urinalysis this admission suggestive of infection, UCx unfortunately with multiple mixed lorena and unable to gather sensitivities or specific species, however has had E. coli UTI sensitive to cephalosporins, Keflex 500mg q6h 06/16 through 06/18 to complete course -CT head without acute CVA however with chronic strokes in frontal lobe and cerebellum, could certainly contribute to executive function and mood issues -Symptoms superimposed on patient with severe dementia at baseline, labeled as Alzheimer's -Continue to monitor, symptoms generally improving and appears to be near baseline per report from daughter/facility -Holding hydrocodone, continue nightly low dose Zyprexa as needed to hopefully help with sleep and symptoms of aggressive delirium, resume Lexapro -1:1 PRN Acute UTI (urinary tract infection): -See above, UA dirty but with mental status changes and significant bacterial load on UCx will treat with cephalosporins as above -BCx x1 tube POSITIVE for CoNS not lugdunensis, PCR S. epidermidis POSITIVE, likely skin contaminant, will not empirically treat this CVA (cerebral vascular accident): -History of, noted as described above on CT head Alzheimer's dementia: -History of on chart, higher potential of hospital-related delirium and of further decline in mental status/aggression as her dementia progresses Type 2 diabetes mellitus: -Diet controlled at home, BSGs well controlled this admission Paroxysmal atrial fibrillation: -Paced rhythm, HR appropriate with metoprolol tartrate 12.5 BID and propafenone 150mg TID -Not on anticoagulation 2/2 risk of falls Hypothyroidism: -Continue levothyroxine Chronic diastolic congestive heart failure: -No evidence of failure on exam, not on diuretics chronically, monitor fluid status and low sodium diet Plan Keflex 500mg q6h 06/16-through 06/18, avoid Macrobid in elderly dementia patient, stopped hydrocodone and has not required so would lean toward Tylenol/NSAIDs/lidocaine patches for pain, resume Lexapro, start PRN nightly Zyprexa 2.5mg Discharge Exam Constitutional WD/WN, vitals as above Respiratory normal respiratory effort, lungs clear to auscultation Cardiovascular RRR no murmurs no peripheral edema Gastrointestinal (Abdomen) normal bowel sounds, soft, nontender, no hepatosplenomegaly Skin no rashes, warm and dry Psychiatric alert and oriented to self, euthymic affect Updated Medication List Medication Instructions Recorded Confirmed Type propafenone 150 mg tablet 150 mg PO Q8H #90 tabs 12/23/21 06/12/23 Rx levothyroxine 50 mcg tablet 50 mcg PO DAILYBB 01/16/22 06/12/23 History metoprolol tartrate 25 mg tablet 12.5 mg PO AMHS 03/10/22 06/12/23 History sennosides 8.6 mg-docusate sodium 1 tab-cap PO AMPM 03/10/22 06/12/23 History 50 mg capsule (Senna Plus) acetaminophen 650 mg rectal 650 mg DC Q4H PRN Fever Or Pain 04/30/22 06/12/23 History suppository magnesium hydroxide 400 mg/5 mL 30 ml PO .DAILY UD PRN Constipation 04/30/22 06/12/23 History oral suspension (Milk of Magnesia) acetaminophen 325 mg tablet 650 mg PO Q4 PRN Fever Or Pain 06/12/23 06/12/23 History (Tylenol) amlodipine 5 mg tablet 5 mg PO DAILY 06/12/23 06/12/23 History diclofenac sodium 1 % topical gel 2 g topical BID 8 grams 06/12/23 06/12/23 History food supplemt, lactose-reduced 1 ea PO BID 06/12/23 06/12/23 History melatonin 10 mg tablet 10 mg PO QPM 06/12/23 06/12/23 History pantoprazole 20 mg tablet,delayed 20 mg PO AMHS 06/12/23 06/12/23 History release cephalexin 500 mg capsule 500 mg PO Q6H 3 days #12 caps 06/15/23 Rx escitalopram oxalate 10 mg tablet 10 mg PO QAM 30 days #30 tabs 06/15/23 Rx olanzapine 2.5 mg tablet 2.5 mg PO HS 30 days #30 tabs 06/15/23 Rx Hospital Stay Data Consultations 06/12/23 17:01 ED Decision to Admit Stat Diagnostic Imagining Performed 06/12/23 17:43 CT head/brain wo con Stat Pending Results Patient Have Any Pending Studies at Discharge: No Discharge Instructions Given to Patient (Per Discharging Provider) Metabolic encephalopathy: -Multiple suspected causes of encephalopathy on admission -Per daughter about 4 weeks of increased paranoia, and now 1 week of intermittent combativeness, in the setting of recent cessation of Lexapro (per facility thought perhaps this was causing mood changes) -Was put on Macrobid by outside facility for possible UTI, which can have mental status effects on the elderly -Urinalysis this admission suggestive of infection, UCx unfortunately with multiple mixed lorena and unable to gather sensitivities or specific species, however has had E. coli UTI sensitive to cephalosporins, Keflex 500mg q6h on discharge to complete on Jun 18 -CT head without acute CVA however with chronic strokes in frontal lobe and cerebellum, could certainly contribute to executive function and mood issues -Symptoms superimposed on patient with severe dementia at baseline, labeled as Alzheimer's -Continue to monitor, symptoms generally improving and appears to be near baseline per report from daughter/facility -Holding hydrocodone, continue nightly low dose Zyprexa as needed to hopefully help with sleep and symptoms of aggressive delirium, resume Lexapro -1:1 PRN Acute UTI (urinary tract infection): -See above, UA dirty but with mental status changes and significant bacterial load on UCx will treat with cephalosporins as above -BCx x1 tube POSITIVE for CoNS not lugdunensis, PCR S. epidermidis POSITIVE, likely skin contaminant, will not empirically treat this CVA (cerebral vascular accident): -History of, noted as described above on CT head Alzheimer's dementia: -History of on chart, higher potential of hospital-related delirium and of further decline in mental status/aggression as her dementia progresses Type 2 diabetes mellitus: -Diet controlled at home, BSGs well controlled this admission Paroxysmal atrial fibrillation: -Paced rhythm, HR appropriate with metoprolol tartrate 12.5 BID and propafenone 150mg TID -Not on anticoagulation 2/2 risk of falls Hypothyroidism: -Continue levothyroxine Chronic diastolic congestive heart failure: -No evidence of failure on exam, not on diuretics chronically, monitor fluid status and low sodium diet Plan Keflex 500mg q6h 06/16-through 06/18, avoid Macrobid in elderly dementia patient, stopped hydrocodone and has not required so would lean toward Tylenol/NSAIDs/lidocaine patches for pain, resume Lexapro, start PRN nightly Zyprexa 2.5mg Total Time Total Time Spent Total Time Spent (In Minutes): 40 min Coding Level of Care Code 63475 INP/OBS DISCH >30 MIN Diagnoses Metabolic encephalopathy G93.41 Acute UTI (urinary tract infection) N39.0 CVA (cerebral vascular accident) I63.9 Alzheimer's dementia G30.9; F02.80 Type 2 diabetes mellitus E11.9 Paroxysmal atrial fibrillation I48.0 Hypothyroidism E03.9 Chronic diastolic congestive heart failure I50.32
== END 2023-06-15 15:09 | DRG 91 ==
LOC: ED 15:07 → SUATTDRO 17:48 → 2N 17:48

== ENCOUNTER 2023-09-06 11:05 | Inpatient (IN) ==
--- NOTE | 2023-09-06 12:07 | XRay Report ---
SINGLE VIEW CHEST CLINICAL HISTORY: Dyspnea FINDINGS: 2 AP, portable, upright chest radiographs are compared to study dated 06/12/2023. Partially degraded The patient is status post midline sternotomy. A 2-lead cardiac pacemaker is unchanged in po sition and partially obscures the right mid chest. The heart is enlarged noting atherosclerotic calci fication of the thoracic aorta. A coronary artery stent is in place. There is pulmonary vascular shane estion. Bilateral airspace opacities likely represent interstitial edema. There are layering pleural effusions with dependent consolidation. No pneumothorax is seen. The skeletal structures are osteopen ic. The bony thorax is grossly intact. IMPRESSION: 1. Cardiomegaly and cardiac pacemaker with evidence of congestive failure. 2. Bilateral airspace opacities likely represent pulmonary edema. Correlate clinically for evidence o f a superimposed infectious/inflammatory pneumonitis. Radiographic follow-up to resolution is recomme nded. 3. Layering pleural effusions with dependent consolidation ACT 112: Negative or not required by law. Electronically signed by: Juan Srinivasan M.D. 09/06/2023 12:06 PM
--- NOTE | 2023-09-06 12:23 | CT Scan Report ---
CT head/brain wo con CLINICAL HISTORY: fall, hematoma Technique: Contiguous axial CT images of the head were acquired from the base of the skull to the bronwyn erin without intravenous contrast administration. Images were viewed in brain, subdural and bone [facility]. Automated dose lowering techniques and/or adjustment according to patient size were utilized for this exam. Comparison: Comparison is made to CT head 06/12/2023 Findings: Areas of decreased attenuation are present in the periventricular and subcortical white matter bilate rally consistent with small vessel ischemic disease. Generalized cerebral atrophy with commensurate e nlargement of the ventricles, sulci, and cisterns is also present. There is no acute intracranial hem orrhage or evidence of acute territorial infarction. No shift of the midline structures, mass effect, or extra-axial abnormalities are shown. Atherosclerotic calcifications are present in the intracran ial segments of the internal carotid arteries. Imaged portions of the paranasal sinuses and mastoid air cells are clear. The orbits appear normal. There are no acute fractures of the calvaria. Scalp swelling is seen in the midline frontal soft tiss ues. Impression: No acute intracranial hemorrhage or skull fractures. Scalp swelling is seen in the midline frontal so ft tissues. ACT 112: Negative or not required by law. Electronically signed by: Misael Holguin M.D. 09/06/2023 12:21 PM
--- NOTE | 2023-09-06 12:34 | CT Scan Report ---
CT cervical spine wo con CLINICAL HISTORY: fall, TECHNIQUE: Multidetector row helical CT of the cervical spine was performed without administration of intravenous contrast. Coronal and sagittal reformations were obtained. Automated dose lowering techn iques and/or adjustment according to patient size were utilized for this exam. Comparison: Comparison is made to CT cervical spine 03/10/2022 FINDINGS: No acute fractures or subluxations are identified. Degenerative changes are seen in the visualized sp ine. The alignment is normal. Partial visualization of pleural effusions versus atelectasis in the david ngs. IMPRESSION: Degenerative changes without evidence of acute bony injury. ACT 112: Negative or not required by law. Electronically signed by: Misael Holguin M.D. 09/06/2023 12:33 PM
[2023-09-06 12:56] LABS: Albumin Globulin Ratio 1.4 (0.9-2); Albumin Level 3.9 gm/dl (3.4-5.0); BUN Creatinine Ratio 32.1 (10-20); Bilirubin,Total 0.8 mg/dl (0.2-1.0); Calcium 9.3 mg/dl (8.6-10.3); Est GFR (African American) 74.6 ml/min; Est GFR (Non-African American) 64.4 ml/min; Globulin 2.7 gm/dl (2.5-4.0); Potassium 4.4 mmol/L (3.5-5.1); Total Protein 6.6 gm/dl (6.0-8.3)
[2023-09-06 13:02] LABS: Basophils # (auto) 0.06 K/uL (0.00-0.20); Basophils % (auto) 0.8 %; Eosinophils # (auto) 0.12 K/uL (0.00-0.50); Eosinophils % (auto) 1.5 %; Hematocrit (blood only) 38.7 % (37.0-47.0); Hemoglobin 12.8 g/dl (12.0-16.0); Immature Granulocytes # (auto) 0.04 K/uL (0.01-0.20); Immature Granulocytes % (auto) 0.5 %; Lymphocytes % (auto) 12.7 %; Mean Corpuscular Hemoglobin 29.8 pg (25.0-34.0); Mean Corpuscular Hgb Conc 33.1 g/dL (32.0-36.0); Mean Corpuscular Volume 90.2 fL (80.0-100.0); Mean Platelet Volume 11.3 fL (9.4-12.4); Monocytes # (auto) 0.49 K/uL (0.11-0.59); Monocytes % (auto) 6.2 %; Neutrophils # (auto) 6.19 K/uL (1.40-6.50); Neutrophils % (auto) 78.3 %; Platelet Count 252 K/uL (130-400); RDW Coefficient of Variation 15.7 % (11.5-14.5); RDW Standard Deviation 51.8 fL (36.4-46.3); Red Blood Count 4.29 M/uL (4.20-5.40)
[2023-09-06 13:25] LABS: Troponin I High Sensitivity 11.7 pg/ml (0-14)
--- NOTE | 2023-09-06 14:05 | Emergency Department Note ---
Impression & Plan Chronic diastolic congestive heart failure, Falls frequently ED Provider Note NAME: MARGOT SALAZAR AGE: 88 SEX: F : 1935 ARRIVES VIA: Ambulance INFORMANT: Patient, ED PROVIDER(S): Cal Sampson MD CHIEF COMPLAINT: Follow HPI: This is an 88-year-old female with history of CKD, Alzheimer's dementia, blood loss anemia today after a fall. Patient lives in a long term and had a fall out of a recliner. She had fallen face forward onto the ground. She had some initial epistaxis which quickly self resolved. At this time patient is not able to contribute significantly to the history. Outside records reviewed including long term notes from same day. ROS: Unable to obtain due to dementia PAST MEDICAL HISTORY: See Below PAST SURGICAL HISTORY: See Below FAMILY HISTORY: See Below SOCIAL HISTORY: See Below HOME MEDICATIONS: See Below ALLERGIES: See Below VITALS: See Below PHYSICAL EXAMINATION: General: resting comfortably in no acute distress Head: Normocephalic dried blood in the naris, ecchymosis around left eye Eyes: Normal inspection, extraocular muscles intact Ear, nose, throat: Normal external exam Neck: Normal range of motion Respiratory: lungs clear to auscultation bilaterally Cardiovascular: Regular rate/rhythm, no murmur GI: soft, nontender, no guarding or rebound Extremities: nontender, moves all extremities Neuro: Patient is arousable, not oriented, moves all extremities spontaneously Skin: Warm, dry, and intact MEDICAL DECISION MAKING: This is an 88-year-old female history of CKD, altered mental status presenting after a fall. Patient has mild respiratory distress with tachypnea here. Borderline hypoxia. Otherwise she did have a fall. Will do CT of the head and neck. Will her chest x-ray. Chest x-ray reviewed by me showing cardiomegaly, pulmonary edema, pleural effusions. CT of the head/C-spine are negative for acute traumatic injury. Due to patient's respiratory status, significant CHF, will admit for further workup and treatment. Triage Nursing notes reviewed. Prior medical records reviewed Vital Signs: reviewed and remarkable for no significant abnormalities Differential diagnosis: ER treatment provided: See below Diagnostics interpreted by me: ECG: ECG independently interpreted by me with sinus tachycardia, rate of 112, normal NH, right bundle branch block, normal QTc, no ST segment elevations consistent with STEMI criteria, left anterior fascicular block Cardiac Monitoring: An order was placed for continuous cardiac monitoring. The monitor shows a rate of 96 with sinus rhythm Laboratory studies: As stated above and show below. Imaging studies: See below. Radiographic imaging was reviewed by myself Consultation(s): None Past Med/Surg History Medical History (Updated 09/09/23 @ 12:59 by Cal Sampson MD) Acute on chronic heart failure with preserved ejection fraction (HFpEF) Osteoarthritis CKD (chronic kidney disease), stage III Acute UTI (urinary tract infection) Fall Dementia Recurrent falls DVT prophylaxis CKD (chronic kidney disease) Aortic stenosis, severe Urinary incontinence Mild cognitive impairment History of pneumonia Acute GI bleeding Anticoagulant long-term use H/O non-ST elevation myocardial infarction (NSTEMI) Chronic diastolic congestive heart failure Anemia Anxiety CVA (cerebral vascular accident) Dyslipidemia Essential hypertension GERD without esophagitis Hypothyroidism Paroxysmal atrial fibrillation Type 2 diabetes mellitus TIA (transient ischemic attack) CAD (coronary artery disease) Surgical History Status post carotid surgery L CEA History of hysterectomy S/P lumpectomy of breast S/P cardiac pacemaker procedure Status post cholecystectomy Hx of CABG Family History Family/Other No problems noted. Brother Cardiac disorder Stroke Hypertension Lung disease Mother Stroke Father Stroke Sister Lung cancer Malignant neoplasm of urinary bladder Denies family history of Colon cancer Ovarian cancer Prostate cancer Myocardial infarction Breast cancer Social History Smoking Status: Never smoker Age Started Using Tobacco: 17; Age Quit Using Tobacco: 29; packs per day: 0.5; Second Hand Exposure: No; Do You Dip or Chew Tobacco: No; Hx Alcohol Use: No Hx Substance Use: No Preferred Language: Icelandic Communication Ability: Effective Communication Ability Comment: hard of hearing Visual Impairment: Limited Hearing Ability: Use of Hearing Aid Blocker And Cutter Contact Lens Required: No Beliefs That Will Affect Care: None marital status: / Current Living Situation: Personal Care Facility Current Living Situation Comment: [facility] current occupational status: retired How many Children do You have: 2 Feels Safe at Home: Yes Childhood Exposure to Second-Hand Smoke: Yes Diet: regular caffeine: Yes during the past year weight has: remained stable Dental Care, Regularly: Yes Physical Activity Frequency: Other Physical Activity Frequency Comment: limited by phusical condition Seatbelt Use: always Sunscreen Use: No Assistive Devices: Walker and Wheelchair Allergies Allergies Allergy/AdvReac Type Severity Reaction Status Date / Time Iodinated Contrast Media Allergy Severe Hives Verified 09/06/23 13:45 Penicillins Allergy Intermediate HIVES Verified 09/06/23 13:45 Home Meds Home Medications Medication Instructions Recorded Confirmed levothyroxine 50 mcg tablet 50 mcg PO DAILYBB 01/16/22 09/06/23 metoprolol tartrate 25 mg tablet 12.5 mg PO AMHS 03/10/22 09/06/23 sennosides 8.6 mg-docusate sodium 1 tab-cap PO AMPM 03/10/22 09/06/23 50 mg capsule (Senna Plus) acetaminophen 650 mg rectal 650 mg NH Q4H PRN Fever Or Pain 04/30/22 09/06/23 suppository magnesium hydroxide 400 mg/5 mL 2,400 mg PO .DAILY UD PRN 04/30/22 09/06/23 oral suspension (Milk of Magnesia) Constipation acetaminophen 325 mg tablet 650 mg PO Q4 PRN Fever Or Pain 06/12/23 09/06/23 (Tylenol) amlodipine 5 mg tablet 5 mg PO DAILY 06/12/23 09/06/23 diclofenac sodium 1 % topical gel 2 g topical BID 8 grams 06/12/23 09/06/23 food supplemt, lactose-reduced 1 ea PO BID 06/12/23 09/06/23 melatonin 10 mg tablet 10 mg PO HS 06/12/23 09/06/23 pantoprazole 20 mg tablet,delayed 20 mg PO AMHS 06/12/23 09/06/23 release Theracalazinc Ointment See Rx Instructions .Route .COMPLEX 09/06/23 09/06/23 bisacodyl 10 mg rectal suppository 10 mg NH DAILY PRN Constipation 09/06/23 09/06/23 (Dulcolax (bisacodyl)) dextromethorphan-guaifenesin 10 10 ml PO Q4H PRN Cough 09/06/23 09/06/23 mg-100 mg/5 mL oral syrup (Siltussin-DM) escitalopram oxalate 5 mg tablet 5 mg PO DAILY 09/06/23 09/06/23 gabapentin 100 mg capsule 100 mg PO DAILY 09/06/23 09/06/23 ipratropium 0.5 mg-albuterol 3 mg 3 ml inhalation Q4H PRN cough/SOB 09/06/23 09/06/23 (2.5 mg base)/3 mL nebulization soln ondansetron HCl 4 mg tablet 4 mg PO Q6H PRN Nausea And Vomiting 09/06/23 09/06/23 sodium phosphates 19 gram-7 118 ml NH DAILY PRN Constipation 09/06/23 09/06/23 gram/118 mL enema (Fleet Enema) Previous Rx's Medication Instructions Recorded propafenone 150 mg tablet 150 mg PO Q8H #90 tabs 12/23/21 Results & Data (ED) Vital Signs Vital Signs - 24 hr 09/06/23 10:58 09/06/23 11:15 09/06/23 13:30 Temperature 36.4 C L Temperature Source Oral Pulse Rate 96 H 89 Pulse Rate [Apical] 97 H Pulse Rhythm Regular Pulse Strength Normal Respiratory Rate 20 24 Respiratory Effort / Characteristics Non-Labored Spontaneous Respiratory Depth Normal Respiratory Pattern Regular Blood Pressure 129/78 Blood Pressure [Right Arm] 112/68 Blood Pressure Mean 95 Blood Pressure Mean [Right Arm] 82 Blood Pressure Position Sitting Blood Pressure Position [Right Arm] Lying Pulse Oximetry 91 99 Oxygen Delivery Method Room Air Nasal Cannula Oxygen Flow Rate 2 Sepsis Recent Fever Within 48 Hours No Sepsis New/Unexplained Change in Mental Status No Sepsis Action Taken by Nursing No Action Required Laboratory Data 09/09/23 05:44 09/09/23 05:44 Lab Results 09/06/23 09/06/23 Range/Units 12:14 13:40 WBC 7.90 (4.8-10.8) K/ul RBC 4.29 (4.20-5.40) M/uL Hgb 12.8 (12.0-16.0) g/dl Hct 38.7 (37.0-47.0) % MCV 90.2 (80.0-100.0) fL MCH 29.8 (25.0-34.0) pg MCHC 33.1 (32.0-36.0) g/dL RDW Std Deviation 51.8 H (36.4-46.3) fL RDW Coeff of Charisma 15.7 H (11.5-14.5) % Plt Count 252 (130-400) K/uL MPV 11.3 (9.4-12.4) fL Immature Gran % (Auto) 0.5 % Neut % (Auto) 78.3 % Lymph % (Auto) 12.7 % [place] % (Auto) 6.2 % Eos % (Auto) 1.5 % Baso % (Auto) 0.8 % Neut # (Auto) 6.19 (1.40-6.50) K/uL Lymph # (Auto) 1.00 L (1.20-3.40) K/uL [place] # (Auto) 0.49 (0.11-0.59) K/uL Eos # (Auto) 0.12 (0.00-0.50) K/uL Baso # (Auto) 0.06 (0.00-0.20) K/uL Immature Gran # (Auto) 0.04 (0.01-0.20) K/uL Sodium 134 L (136-145) mmol/L Potassium 4.4 (3.5-5.1) mmol/L Chloride 104 (98-107) mmol/L Carbon Dioxide 22 (21-32) mmol/L Anion Gap 8 (3-11) BUN 26 H (6-23) mg/dl Creatinine 0.81 (0.6-1.2) mg/dl Est Cr Clr Drug Dosing 36.0 ml/min Est GFR ( Amer) 74.6 ml/min Est GFR (Non-Af Amer) 64.4 ml/min BUN/Creatinine Ratio 32.1 H (10-20) Glucose 263 H (70-99(Fasting)) mg/dl Calcium 9.3 (8.6-10.3) mg/dl Total Bilirubin 0.8 (0.2-1.0) mg/dl AST 20 (13-39) U/L ALT 18 (7-52) U/L Alkaline Phosphatase 84 (34-104) U/L Troponin I High Sens 11.7 (0-14) pg/ml B-Natriuretic Peptide 2417 H (0-100) pg/ml Total Protein 6.6 (6.0-8.3) gm/dl Albumin 3.9 (3.4-5.0) gm/dl Globulin 2.7 (2.5-4.0) gm/dl Albumin/Globulin Ratio 1.4 (0.9-2) SARS-CoV-2 (PCR) NEGATIVE (Negative) Influenza Type A (PCR) Negative (Neg) Influenza Type B (PCR) Negative (Neg) RSV (RT-PCR) Negative (Neg) Administered Medications Acetaminophen (Acetaminophen 325 Mg Tab) 650 mg PO Q4H PRN PRN Reason: Pain or Fever Stop: 10/06/23 15:26 Last Admin: 09/09/23 06:19 Dose: 650 mg Documented By: Admin: 09/08/23 20:01 Dose: 650 mg Documented By: Admin: 09/08/23 04:04 Dose: 650 mg Documented By: Admin: 09/07/23 20:26 Dose: 650 mg Documented By: Admin: 09/07/23 08:10 Dose: 650 mg Documented By: [id number] Empagliflozin (Empagliflozin 10 Mg Tab) 10 mg PO DAILY [facility] Stop: 10/08/23 09:29 Last Admin: 09/09/23 09:16 Dose: 10 mg Documented By: Admin: 09/08/23 10:20 Dose: 10 mg Documented By: DANGELO Escitalopram Oxalate (Escitalopram Oxalate 10 Mg Tab) 5 mg PO DAILY [facility] Stop: 10/07/23 08:59 Last Admin: 09/09/23 09:26 Dose: 5 mg Documented By: Admin: 09/08/23 08:25 Dose: 5 mg Documented By: Admin: 09/07/23 08:11 Dose: 5 mg Documented By: [id number] Furosemide (Furosemide Inj 20 Mg/2 Ml Vial) 40 mg IV DAILY [facility] Stop: 10/09/23 08:59 Last Admin: 09/09/23 09:26 Dose: 40 mg Documented By: SELINA Ceftriaxone Sodium 1,000 mg/ (Dextrose) 50 mls @ 100 mls/hr IV Q24H [facility]; Protocol Stop: 09/14/23 08:59 Last Infusion: 09/09/23 09:51 Dose: Infused Documented By: Admin: 09/09/23 09:15 Dose: 100 mls/hr Documented By: SELINA Insulin Aspart (Insulin Aspart Per Unit Charge) 0 units SC ACHS [facility] Stop: 10/06/23 16:29 Last Admin: 09/09/23 12:41 Dose: Not Given Documented By: SELINA Co-signed By: [id number] Admin: 09/09/23 08:53 Dose: Not Given Documented By: SELINA Co-signed By: [id number] Admin: 09/08/23 20:02 Dose: Not Given Documented By: Admin: 09/08/23 18:09 Dose: Not Given Documented By: DANGELO Co-signed By: JIM Admin: 09/08/23 12:55 Dose: 1 units Documented By: MTM Co-signed By: YANETH Admin: 09/08/23 09:49 Dose: Not Given Documented By: DANGELO Co-signed By: YANETH Admin: 09/07/23 20:27 Dose: Not Given Documented By: Admin: 09/07/23 17:18 Dose: 1 units Documented By: [id number] Co-signed By: INEZ Admin: 09/07/23 12:27 Dose: Not Given Documented By: [id number] Admin: 09/07/23 09:36 Dose: Not Given Documented By: [id number] Admin: 09/06/23 23:40 Dose: Not Given Documented By: Admin: 09/06/23 23:39 Dose: Not Given Documented By: STEVEN Insulin Glargine (Lantus Per Unit Charge) 0 - 5 units SQ BID [facility] Stop: 10/06/23 20:59 Last Admin: 09/09/23 08:52 Dose: Not Given Documented By: Admin: 09/08/23 20:02 Dose: Not Given Documented By: Admin: 09/08/23 09:50 Dose: Not Given Documented By: Admin: 09/07/23 20:34 Dose: 5 units Documented By: DEION Co-signed By: KOREY Admin: 09/07/23 09:35 Dose: Not Given Documented By: [id number] Admin: 09/06/23 23:41 Dose: Not Given Documented By: STEVEN Levothyroxine Sodium (Levothyroxine Sodium 50 Mcg Tablet) 50 mcg PO DAILYBB [facility] Stop: 10/07/23 06:29 Last Admin: 09/09/23 06:20 Dose: 50 mcg Documented By: Admin: 09/08/23 04:04 Dose: 50 mcg Documented By: Admin: 09/07/23 05:55 Dose: 50 mcg Documented By: STEVEN Magnesium Oxide (Magnesium Oxide 400 Mg Tab) 400 mg PO BID [facility] Stop: 10/08/23 09:14 Last Admin: 09/09/23 09:17 Dose: 400 mg Documented By: Admin: 09/08/23 19:49 Dose: 400 mg Documented By: Admin: 09/08/23 10:20 Dose: 400 mg Documented By: DANGELO Metoprolol Tartrate (Metoprolol Tartrate 25 Mg Tab) 25 mg PO [facility] Stop: 10/08/23 20:59 Last Admin: 09/09/23 09:17 Dose: 25 mg Documented By: Admin: 09/08/23 19:50 Dose: 25 mg Documented By: DEION Pantoprazole Sodium (Pantoprazole 40 Mg Tab) 40 mg PO [facility] Stop: 10/06/23 20:59 Last Admin: 09/09/23 09:18 Dose: 40 mg Documented By: Admin: 09/08/23 19:49 Dose: 40 mg Documented By: Admin: 09/08/23 08:26 Dose: 40 mg Documented By: Admin: 09/07/23 20:28 Dose: 40 mg Documented By: Admin: 09/07/23 08:11 Dose: 40 mg Documented By: [id number] Admin: 09/06/23 22:26 Dose: Not Given Documented By: ACC Senna/Docusate Sodium (Docusate Sodium/Senna 50/8.6mg Tab) 1 tab PO BID [facility] Stop: 10/06/23 20:59 Last Admin: 09/09/23 09:15 Dose: 1 tab Documented By: Admin: 09/08/23 19:49 Dose: 1 tab Documented By: Admin: 09/08/23 08:25 Dose: 1 tab Documented By: Admin: 09/07/23 20:26 Dose: 1 tab Documented By: Admin: 09/07/23 08:10 Dose: 1 tab Documented By: [id number] Admin: 09/06/23 22:25 Dose: Not Given Documented By: ACC Spironolactone (Spironolactone 25 Mg Tab) 25 mg PO [facility] Stop: 10/08/23 09:29 Last Admin: 09/09/23 09:18 Dose: 25 mg Documented By: Admin: 09/08/23 10:20 Dose: 25 mg Documented By: DANGELO Discontinued Medications Furosemide (Furosemide Inj 20 Mg/2 Ml Vial) 20 mg IV NOW STA Stop: 09/06/23 15:31 Last Admin: 09/06/23 21:38 Dose: 20 mg Documented By: ACC Furosemide (Furosemide Inj 20 Mg/2 Ml Vial) 20 mg IV DAILY [facility] Stop: 10/07/23 08:59 Last Admin: 09/08/23 09:13 Dose: 20 mg Documented By: Admin: 09/07/23 08:10 Dose: 20 mg Documented By: [id number] Clindamycin Phosphate (Cleocin/D5w) 600 mg in 50 mls @ 100 mls/hr IV Q8H [facility] Stop: 09/07/23 16:59 Last Infusion: 09/07/23 08:50 Dose: Infused Documented By: [id number] Admin: 09/07/23 08:10 Dose: 100 mls/hr Documented By: [id number] Infusion: 09/07/23 00:58 Dose: Infused Documented By: Admin: 09/07/23 00:35 Dose: 100 mls/hr Documented By: Infusion: 09/06/23 21:35 Dose: Infused Documented By: Admin: 09/06/23 17:28 Dose: 100 mls/hr Documented By: TACHO Metoprolol Tartrate (Metoprolol Tartrate 25 Mg Tab) 12.5 mg PO AMHS [facility] Stop: 10/06/23 20:59 Last Admin: 09/08/23 08:25 Dose: 12.5 mg Documented By: Admin: 09/07/23 20:27 Dose: 12.5 mg Documented By: Admin: 09/07/23 08:11 Dose: 12.5 mg Documented By: [id number] Admin: 09/06/23 22:25 Dose: Not Given Documented By: ACC Potassium Chloride (Potassium Chloride Crtab 20 Meq Tabcr) 20 meq PO NOW STA Stop: 09/08/23 09:07 Last Admin: 09/08/23 09:55 Dose: 20 meq Documented By: DANGELO Propafenone HCl (Propafenone Hcl 150 Mg Tablet) 150 mg PO Q8 [facility] Stop: 10/06/23 15:44 Last Admin: 09/08/23 04:04 Dose: 150 mg Documented By: Admin: 11/21/23 20:28 Dose: 150 mg Documented By: Admin: 09/07/23 14:18 Dose: 150 mg Documented By: [id number] Admin: 09/07/23 05:54 Dose: 150 mg Documented By: Admin: 09/06/23 23:42 Dose: Not Given Documented By: Admin: 09/06/23 21:26 Dose: Not Given Documented By: ACC Imaging Data Radiologist's Impression: Cervical Spine CT 09/06/23 11:37 CT cervical spine wo con CLINICAL HISTORY: fall, TECHNIQUE: Multidetector row helical CT of the cervical spine was performed without administration of intravenous contrast. Coronal and sagittal reformations were obtained. Automated dose lowering techniques and/or adjustment according to patient size were utilized for this exam. Comparison: Comparison is made to CT cervical spine 03/10/2022 FINDINGS: No acute fractures or subluxations are identified. Degenerative changes are seen in the visualized spine. The alignment is normal. Partial visualization of pleural effusions versus atelectasis in the lungs. IMPRESSION: Degenerative changes without evidence of acute bony injury. ACT 112: Negative or not required by law. Electronically signed by: Misael Holguin M.D. 09/06/2023 12:33 PM Chest X-Ray 09/06/23 11:37 SINGLE VIEW CHEST CLINICAL HISTORY: Dyspnea FINDINGS: 2 AP, portable, upright chest radiographs are compared to study dated 06/12/2023. Partially degraded The patient is status post midline sternotomy. A 2-lead cardiac pacemaker is unchanged in position and partially obscures the right mid chest. The heart is enlarged noting atherosclerotic calcification of the thoracic aorta. A coronary artery stent is in place. There is pulmonary vascular congestion. Bilateral airspace opacities likely represent interstitial edema. There are layering pleural effusions with dependent consolidation. No pneumothorax is seen. The skeletal structures are osteopenic. The bony thorax is grossly intact. IMPRESSION: 1. Cardiomegaly and cardiac pacemaker with evidence of congestive failure. 2. Bilateral airspace opacities likely represent pulmonary edema. Correlate clinically for evidence of a superimposed infectious/inflammatory pneumonitis. Radiographic follow-up to resolution is recommended. 3. Layering pleural effusions with dependent consolidation ACT 112: Negative or not required by law. Electronically signed by: Juan Srinivasan M.D. 09/06/2023 12:[address] 09/06/23 11:37 CT head/brain wo con CLINICAL HISTORY: fall, hematoma Technique: Contiguous axial CT images of the head were acquired from the base of the skull to the vertex without intravenous contrast administration. Images were viewed in brain, subdural and bone windows. Automated dose lowering techniques and/or adjustment according to patient size were utilized for this exam. Comparison: Comparison is made to CT head 06/12/2023 Findings: Areas of decreased attenuation are present in the periventricular and subcortical white matter bilaterally consistent with small vessel ischemic disease. Generalized cerebral atrophy with commensurate enlargement of the ventricles, sulci, and cisterns is also present. There is no acute intracranial hemorrhage or evidence of acute territorial infarction. No shift of the midline structures, mass effect, or extra-axial abnormalities are shown. Atherosclerotic calcifications are present in the intracranial segments of the internal carotid arteries. Imaged portions of the paranasal sinuses and mastoid air cells are clear. The orbits appear normal. There are no acute fractures of the calvaria. Scalp swelling is seen in the midline frontal soft tissues. Impression: No acute intracranial hemorrhage or skull fractures. Scalp swelling is seen in the midline frontal soft tissues. ACT 112: Negative or not required by law. Electronically signed by: Misael Holguin M.D. 09/06/2023 12:21 PM Discharge Plan Visit Data Chief Complaint: Fall Stated Complaint: GROUND LEVEL FALL, HEMATOMA ABOVE EYE ED Provider: Cal Sampson Discharge Problem: Chronic diastolic congestive heart failure, Falls frequently Patient Disposition: Admitted As Inpatient Discharge Instructions Interventions: ED Discharge Assessment Last Done: 09/06/23 15:27
--- NOTE | 2023-09-06 14:15 | CT Scan Report ---
CT facial bones wo con CLINICAL HISTORY: r/o nasal bone fx TECHNIQUE: Multidetector row helical CT of the maxillofacial bones was performed without administrati on of intravenous contrast, and processed with bone and soft tissue algorithms. Coronal and sagittal reformations were obtained. Automated dose lowering techniques and/or adjustment according to patient size were utilized for this exam. Comparison: Comparison is made to CT head 09/06/2023 FINDINGS: Exam is highly limited by patient motion. There is a likely nondisplaced fracture of the right nasal bone. Soft tissue swelling is seen about the nose. The mandible is intact. The temporomandibular join ts are anatomically aligned. Pterygoid plates are intact. Zygomatic arches are intact. The globes are normal and symmetric, without proptosis, obvious disruption or lens dislocation. Jeannette le calcific scleral plaques are noted. The orbital malik are intact. The retrobulbar fat is without e vidence of disruption. Extraocular muscles are normal and symmetric. Optic nerve sheath complexes a re normal in course and caliber. Soft tissue swelling is seen in the midline frontal region. Imaged portions of the paranasal sinuses and mastoid air cells are clear. IMPRESSION: Right nasal fracture with associated soft tissue swelling. ACT 112: Negative or not required by law. Electronically signed by: Misael Holguin M.D. 09/06/2023 2:13 PM
--- NOTE | 2023-09-06 14:18 | History & Physical Report ---
Date of Service September 06, 2023 Assessment & Plan (1) Nasal fracture: (2) Hypoxia: (3) Acute on chronic heart failure with preserved ejection fraction (HFpEF): (4) Dementia: Plan This is an 88-year-old female who has a significant past medical history of Alzheimer's dementia, CAD with history of CABG, HTN, HLD, PAF, T2DM, hypothyroidism, cardiac pacemaker in situ, GERD, history of GI bleed and anxiety who presents to ER after sustaining a fall at nursing facility. Hypoxia Acute HFpEF Moderate to Severe Admit to telemetry Last echocardiogram 01/2021 revealed LVEF 50%, enlargement of left atrium, LVH, moderately severe to severe aortic stenosis, moderate severe mitral valve insufficiency, moderate to severe tricuspid insufficiency, moderate pulmonic valvular insufficiency, moderate pulmonary hypertension Patient presented to hospital secondary to fall and facial trauma and subsequently diagnosed with acute on chronic CHF Appears to be Lasix lorena, will give 20 mg IV Lasix x1 now schedule 20 mg Lasix IV daily, will reassess Daily weights, strict I's and O Please Mullen catheter for accurate output measurement Obtain updated echocardiogram Consult cardiology - pt previously seen by [facility] Fall Acute right nasal fracture Obtunded will consult Dr. Calvo for any further recs ICE TID discussed with daughter pt not a surgical candidate and would not want any surgical intervention if indicated empiric clindamycin for now repeat head CT @ 1900 to ensure stability given obtunded state urine drug screen Alzheimer Dementia per daughter has been worsening, refers to past a lot conversation is even difficult monitor for delirium PAF not on OAC 2/2 fall risk continue metoprolol and propafenone Hypothyroidism chronic, stable continue levothyroxine HTN hold amlodipine for now due to low normal BP resume when able continue metoprolol DVT ppx: SCDS 2/2 fall DNR/DNI - confirmed with daughter and [facility] paperwork Dispo: tele Pt was seen and examined in collaboration with Dr. Ortiz, please see addendum History of Present Illness Chief Complaint: FALL [employer]. Primary Care Provider: Missy Edward This is an 88-year-old female who has a significant past medical history of Alzheimer's dementia, CAD with history of CABG, HTN, HLD, PAF, T2DM, hypothyroidism, cardiac pacemaker in situ, GERD, history of GI bleed and anxiety who presents to ER after sustaining a fall at nursing facility. History unable to be provided by patient due to underlying dementia. Outside records from nursing, reviewed. Per note patient had a witnessed fall by roommate in which she was sitting in her recliner chair and fell forward to the floor hitting her face. She was facedown on the floor and noted to have significant hematoma to left forehead and significant right-sided epistaxis and nasal bone swelling. She was very lethargic after the fall. Her vital signs were stable. They sent her to ER for further evaluation. In ER head CT was negative for any acute intracranial hemorrhage or skull fracture. Scalp swelling was noted in the midline frontal soft tissues. Cervical spine CT revealed degenerative changes without evidence of acute bony injury. Chest x-ray revealed cardiomegaly and cardiac pacemaker with evidence of congestive failure. Bilateral airspace opacities likely represent pulmonary edema versus superimposed infectious/inf lammatory pneumonitis. Layering pleural effusions with dependent consolidations noted. On exam patient had a notable nasal swelling and the CT was obtained. A right nasal fracture was appreciated on imaging. Allergies Allergy/AdvReac Type Severity Reaction Status Date / Time Iodinated Contrast Media Allergy Severe Hives Verified 09/06/23 13:45 Penicillins Allergy Intermediate HIVES Verified 09/06/23 13:45 Home Medications Medication Instructions Recorded Confirmed Type propafenone 150 mg tablet 150 mg PO Q8H #90 tabs 12/23/21 09/06/23 Rx levothyroxine 50 mcg tablet 50 mcg PO DAILYBB 01/16/22 09/06/23 History metoprolol tartrate 25 mg tablet 12.5 mg PO AMHS 03/10/22 09/06/23 History sennosides 8.6 mg-docusate sodium 1 tab-cap PO AMPM 03/10/22 09/06/23 History 50 mg capsule (Senna Plus) acetaminophen 650 mg rectal 650 mg WI Q4H PRN Fever Or Pain 04/30/22 09/06/23 History suppository magnesium hydroxide 400 mg/5 mL 2,400 mg PO .DAILY UD PRN 04/30/22 09/06/23 History oral suspension (Milk of Magnesia) Constipation acetaminophen 325 mg tablet 650 mg PO Q4 PRN Fever Or Pain 06/12/23 09/06/23 History (Tylenol) amlodipine 5 mg tablet 5 mg PO DAILY 06/12/23 09/06/23 History diclofenac sodium 1 % topical gel 2 g topical BID 8 grams 06/12/23 09/06/23 History food supplemt, lactose-reduced 1 ea PO BID 06/12/23 09/06/23 History melatonin 10 mg tablet 10 mg PO HS 06/12/23 09/06/23 History pantoprazole 20 mg tablet,delayed 20 mg PO AMHS 06/12/23 09/06/23 History release Theracalazinc Ointment See Rx Instructions .Route .COMPLEX 09/06/23 09/06/23 History bisacodyl 10 mg rectal suppository 10 mg WI DAILY PRN Constipation 09/06/23 09/06/23 History (Dulcolax (bisacodyl)) dextromethorphan-guaifenesin 10 10 ml PO Q4H PRN Cough 09/06/23 09/06/23 History mg-100 mg/5 mL oral syrup (Siltussin-DM) escitalopram oxalate 5 mg tablet 5 mg PO DAILY 09/06/23 09/06/23 History gabapentin 100 mg capsule 100 mg PO DAILY 09/06/23 09/06/23 History ipratropium 0.5 mg-albuterol 3 mg 3 ml inhalation Q4H PRN cough/SOB 09/06/23 09/06/23 History (2.5 mg base)/3 mL nebulization soln ondansetron HCl 4 mg tablet 4 mg PO Q6H PRN Nausea And Vomiting 09/06/23 09/06/23 History sodium phosphates 19 gram-7 118 ml WI DAILY PRN Constipation 09/06/23 09/06/23 History gram/118 mL enema (Fleet Enema) Past Med/Surg History Medical History Osteoarthritis CKD (chronic kidney disease), stage III Acute UTI (urinary tract infection) Fall Dementia Recurrent falls DVT prophylaxis CKD (chronic kidney disease) Aortic stenosis, severe Urinary incontinence Mild cognitive impairment History of pneumonia Acute GI bleeding Anticoagulant long-term use H/O non-ST elevation myocardial infarction (NSTEMI) Chronic diastolic congestive heart failure Anemia Anxiety CVA (cerebral vascular accident) Dyslipidemia Essential hypertension GERD without esophagitis Hypothyroidism Paroxysmal atrial fibrillation Type 2 diabetes mellitus TIA (transient ischemic attack) CAD (coronary artery disease) Surgical History Status post carotid surgery L CEA History of hysterectomy S/P lumpectomy of breast S/P cardiac pacemaker procedure Status post cholecystectomy Hx of CABG Family History Family/Other No problems noted. Brother Cardiac disorder Stroke Hypertension Lung disease Mother Stroke Father Stroke Sister Lung cancer Malignant neoplasm of urinary bladder Denies family history of Colon cancer Ovarian cancer Prostate cancer Myocardial infarction Breast cancer Social History Smoking Status: Never smoker Age Started Using Tobacco: 17; Age Quit Using Tobacco: 29; packs per day: 0.5; Second Hand Exposure: No; Do You Dip or Chew Tobacco: No; Hx Alcohol Use: No Hx Substance Use: No Preferred Language: Citizen Of [place] Communication Ability: Impaired Communication Ability Comment: hard of hearing Visual Impairment: Limited Hearing Ability: Use of Hearing Aid Electoral Officer Required: No Beliefs That Will Affect Care: None marital status: / Current Living Situation: Personal Care Facility Current Living Situation Comment: [facility] current occupational status: retired How many Children do You have: 2 Feels Safe at Home: Yes Childhood Exposure to Second-Hand Smoke: Yes Diet: regular caffeine: Yes during the past year weight has: remained stable Dental Care, Regularly: Yes Physical Activity Frequency: Other Physical Activity Frequency Comment: limited by phusical condition Seatbelt Use: always Sunscreen Use: No Assistive Devices: Walker and Wheelchair Review of Systems Review of Systems: Unobtainable due to cognitive status Physical Exam Physical Exam: Constitutional: WD/WN, elderly, not oriented, obtunded, not arousable, vitals as above, Head: Normocephalic, +scalp contusion, ecchymosis Eyes: PERRL, conjunctivae normal, anicteric sclerae ENMT: external ear and nose normal, oropharynx dry membranes, nose with external blood noted, +nasal swelling Neck: trachea midline, no thyromegaly normal visual inspection Respiratory: normal respiratory effort, lungs clear to auscultation, no wheeze, rales, rhonchi. Normal insp/exp effort, no accessory muscle use Cardiovascular: RRR, 2/6 NOMI noted, no edema Vessels: no JVD or carotid bruit Chest: normal inspection of chest Abdomen: normal bowel sounds, soft, nontender, no hepatosplenomegaly Musculoskeletal: no cyanosis or clubbing, unable to asses MSK due to pt not able to follow commands Skin: no rashes, warm and dry normal turgor Neurologic: no face palsy,CN's II-XI intact bilaterally and moves all extremities Psychiatric: not oriented, euthymic affect Lymphatic: no cervical or axillary lymphadenopathy : deferred Results & Data Results & Data Vital Signs (Past 12 Hours) Vital Signs Temp Pulse Pulse Resp BP BP Pulse Ox 09/06/23 13:30 97 H 24 112/68 99 09/06/23 11:15 89 09/06/23 10:58 36.4 C L 96 H 20 129/78 91 O2 Del Method O2 Flow Rate 09/06/23 13:30 Nasal Cannula 2 09/06/23 11:15 09/06/23 10:58 Room Air Diagnostic Findings Cervical Spine CT 09/06/23 11:37 CT cervical spine wo con CLINICAL HISTORY: fall, TECHNIQUE: Multidetector row helical CT of the cervical spine was performed without administration of intravenous contrast. Coronal and sagittal reformations were obtained. Automated dose lowering techniques and/or adjustment according to patient size were utilized for this exam. Comparison: Comparison is made to CT cervical spine 03/10/2022 FINDINGS: No acute fractures or subluxations are identified. Degenerative changes are seen in the visualized spine. The alignment is normal. Partial visualization of pleural effusions versus atelectasis in the lungs. IMPRESSION: Degenerative changes without evidence of acute bony injury. ACT 112: Negative or not required by law. Electronically signed by: Misael Holguin M.D. 09/06/2023 12:33 PM Chest X-Ray 09/06/23 11:37 SINGLE VIEW CHEST CLINICAL HISTORY: Dyspnea FINDINGS: 2 AP, portable, upright chest radiographs are compared to study dated 06/12/2023. Partially degraded The patient is status post midline sternotomy. A 2-lead cardiac pacemaker is unchanged in position and partially obscures the right mid chest. The heart is enlarged noting atherosclerotic calcification of the thoracic aorta. A coronary artery stent is in place. There is pulmonary vascular congestion. Bilateral airspace opacities likely represent interstitial edema. There are layering pleural effusions with dependent consolidation. No pneumothorax is seen. The skeletal structures are osteopenic. The bony thorax is grossly intact. IMPRESSION: 1. Cardiomegaly and cardiac pacemaker with evidence of congestive failure. 2. Bilateral airspace opacities likely represent pulmonary edema. Correlate clinically for evidence of a superimposed infectious/inflammatory pneumonitis. Radiographic follow-up to resolution is recommended. 3. Layering pleural effusions with dependent consolidation ACT 112: Negative or not required by law. Electronically signed by: Juan Srinivasan M.D. 09/06/2023 12:[address] 09/06/23 11:37 CT head/brain wo con CLINICAL HISTORY: fall, hematoma Technique: Contiguous axial CT images of the head were acquired from the base of the skull to the vertex without intravenous contrast administration. Images were viewed in brain, subdural and bone windows. Automated dose lowering techniques and/or adjustment according to patient size were utilized for this exam. Comparison: Comparison is made to CT head 06/12/2023 Findings: Areas of decreased attenuation are present in the periventricular and subcortical white matter bilaterally consistent with small vessel ischemic disease. Generalized cerebral atrophy with commensurate enlargement of the ventricles, sulci, and cisterns is also present. There is no acute intracranial hemorrhage or evidence of acute territorial infarction. No shift of the midline structures, mass effect, or extra-axial abnormalities are shown. Atherosclerotic calcifications are present in the intracranial segments of the internal carotid arteries. Imaged portions of the paranasal sinuses and mastoid air cells are clear. The orbits appear normal. There are no acute fractures of the calvaria. Scalp swelling is seen in the midline frontal soft tissues. Impression: No acute intracranial hemorrhage or skull fractures. Scalp swelling is seen in the midline frontal soft tissues. ACT 112: Negative or not required by law. Electronically signed by: Misael Holguin M.D. 09/06/2023 12:[address] 09/06/23 13:17 CT facial bones wo con CLINICAL HISTORY: r/o nasal bone fx TECHNIQUE: Multidetector row helical CT of the maxillofacial bones was performed without administration of intravenous contrast, and processed with bone and soft tissue algorithms. Coronal and sagittal reformations were obtained. Automated dose lowering techniques and/or adjustment according to patient size were utilized for this exam. Comparison: Comparison is made to CT head 09/06/2023 FINDINGS: Exam is highly limited by patient motion. There is a likely nondisplaced fracture of the right nasal bone. Soft tissue swelling is seen about the nose. The mandible is intact. The temporomandibular joints are anatomically aligned. Pterygoid plates are intact. Zygomatic arches are intact. The globes are normal and symmetric, without proptosis, obvious disruption or lens dislocation. Senile calcific scleral plaques are noted. The orbital malik are intact. The retrobulbar fat is without evidence of disruption. Extraocular muscles are normal and symmetric. Optic nerve sheath complexes are normal in course and caliber. Soft tissue swelling is seen in the midline frontal region. Imaged portions of the paranasal sinuses and mastoid air cells are clear. IMPRESSION: Right nasal fracture with associated soft tissue swelling. ACT 112: Negative or not required by law. Electronically signed by: Misael Holguin M.D. 09/06/2023 2:13 PM ECG Rate (beats per minute): 89 Rhythm: normal sinus Additional Comments: 1st degree avb, lafb, qtc 564ms COVID-19 Results Results COVID-19 Adm Lab Results: RBC 4.29 M/uL (4.20-5.40) 09/06/23 WBC 7.90 K/ul (4.8-10.8) 09/06/23 Hgb 12.8 g/dl (12.0-16.0) 09/06/23 Hct 38.7 % (37.0-47.0) 09/06/23 Plt Count 252 K/uL (130-400) 09/06/23 Neutrophils (%) (Auto) 78.3 % 09/06/23 Lymphocytes (%) (Auto) 12.7 % 09/06/23 Monocytes # (Auto) 0.49 K/uL (0.11-0.59) 09/06/23 Eosinophils # (Auto) 0.12 K/uL (0.00-0.50) 09/06/23 Immature Granulocyte % (Auto) 0.5 % 09/06/23 Neutrophils # (Auto) 6.19 K/uL (1.40-6.50) 09/06/23 Lymphocytes # (Auto) 1.00 K/uL (1.20-3.40) L 09/06/23 Monocytes # (Auto) 0.49 K/uL (0.11-0.59) 09/06/23 Eosinophils # (Auto) 0.12 K/uL (0.00-0.50) 09/06/23 Basophils # (Auto) 0.06 K/uL (0.00-0.20) 09/06/23 Immature Granulocyte # (Auto) 0.04 K/uL (0.01-0.20) 3 Na 134 mmol/L (136-145) L 09/06/23 K 4.4 mmol/L (3.5-5.1) 09/06/23 Cl 104 mmol/L (98-107) 09/06/23 CO2 22 mmol/L (21-32) 09/06/23 Anion Gap 8 (3-11) 09/06/23 BUN 26 mg/dl (6-23) H 09/06/23 Creatinine 0.81 mg/dl (0.6-1.2) 09/06/23 BUN/Creatinine Ratio 32.1 (10-20) H 09/06/23 Glucose Level 263 mg/dl (70-99(Fasting)) H 09/06/23 Ca 9.3 mg/dl (8.6-10.3) 09/06/23 Total Bilirubin 0.8 mg/dl (0.2-1.0) 09/06/23 AST/SGOT 20 U/L (13-39) 09/06/23 ALT/SGPT 18 U/L (7-52) 09/06/23 Alkaline Phosphatase 84 U/L (34-104) 09/06/23 Total Protein 6.6 gm/dl (6.0-8.3) 09/06/23 Albumin 3.9 gm/dl (3.4-5.0) 09/06/23 Globulin 2.7 gm/dl (2.5-4.0) 09/06/23 Albumin/Globulin Ratio 1.4 (0.9-2) 09/06/23 COVID-19 PCR NEGATIVE (Negative) 09/06/23 Influenza Virus Type A (PCR) Negative (Neg) 09/06/23 Influenza Virus Type B (PCR) Negative (Neg) 09/06/23 Chest X-Ray 09/06/23 Code Status & VTE Plan Code Status DNR/DNI Supervising Physician Co-Signing Physician Notes I have seen and examined the patient and have discussed the case with the provider above. I agree with the assessment and plan as stated with the following exceptions. 88 yo F with dementia presents after a fall. On exam she is obtunded, and has remained in this level of consciousness for the majority of the day. She is oxygenating well on 2LPM via nasal canula. She indured a traumatic nasal fracture with some evidence of blood in the nasal canal from the fall without active bleeding. She has a frontal hematoma that was large and improved after placement of a compression dressing by the RN in the ER. She has a BP 111/73 w ith milt tachycardia (HR 101) and normal respirations with no increased work of breathing. Lungs are difficult to examine but there are lung sounds auscultated without wheezing at rest and diminished breath sounds at the bases. She has no evidence of peripheral edema. Labs/meds/imaging reviewed. Elevated BNP, CXR with layering pleural effusions and pulmonary edema are concerning for acute on chronic heart failure. She has a known h/o significant valvulopathy including severe AoV stenosis, severe mitral valve insufficiency, severe tricuspid insuff, with moderate pulmonic valve insufficiency. 1. traumatic nasal fracture-prophylactic abx, OMFS referral 2. obtunded state-repeat head CT this evening. 3. Acute heart failure in setting of severe valvulopathy including , s/p pacemaker. 4. Alzheimer's dementia 5. PAf-in NSR on propafenone, not on anticoagulation. She has a h/o following with [facility] cardiology with last note in 2020 reporting she was scared to undergo a TAVR. Given her fluid overloaded state and uncertainty if syncope may have contributed to her fall today will get cardiology involved and repeat echo now. Cont Lasix carefully given preload dependence. Appreciate OFMS recommendations, especially regarding the need to continue prophylactic antibiotics. DO Angel
[2023-09-06 14:46] LABS: Influenza A virus by PCR Negative (Neg); Influenza B virus by PCR Negative (Neg); RSV by PCR Negative (Neg); SARS CoV2 RNA(COVID-19) Ceph NEGATIVE (Negative)
[2023-09-06] MEDS ORDERED: ALUMINUM/MAGNESIUM SUSP 30 ML UDC PO PRN (15:27)
[2023-09-06] MEDS ORDERED: MAGNESIUM HYDROXIDE SUSP 30 ML UDC PO PRN (15:27)
[2023-09-06] MEDS ORDERED: FUROSEMIDE INJ 20 MG/2 ML VIAL IV STA (15:30)
--- OUTSIDE RECORDS SUMMARY | 2023-09-06 15:39 | External Medical Summary | Continuity Of Care Document ---
Author Name Unknown Address [address] [place] [address] Organization [facility]) Care Team Providers Care Skirt Clipper Name Role Phone Saida Moon Primary Care Provider [phone] Problems Code Description Start Date End Date Status G93.41 Metabolic encephalopathy 06/15/2023 Active N39.0 Urinary tract infection, site not specified Active Z86.73 Personal history of transient ischemic attack (TIA), and cerebral infarction without residual deficits 06/15/2023 Active G30.9 Alzheimer's disease, unspecified 06/15/2023 Active E11.9 Type 2 diabetes mellitus without complications 06/15/2023 Active I48.91 Unspecified atrial fibrillation 06/15/2023 00/0 Active E03.9 Hypothyroidism, unspecified 06/15/2023 00 Active S72.001D Fracture of unspecif ied part of neck of right femur, subsequent encounter for closed fracture with routine healing 03/11/2022 Active S00.03XA Contusion of scalp, initial encounter Active D72.829 Elevated white blood cell count, unspecified Active I48.0 Paroxysmal atrial fibrillation 03/11/2022 Active R29.6 Repeated falls 01/20/2022 Active K30. 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 01/20/2022 Active Z95.0 Presence of cardiac pacemaker 01/20/2022 Active Z95.1 Presence of aortocoronary bypass graft 01/21/20 Active K20.90 Esophagitis, unspecified without bleeding 01/20 Active I25.10 Atherosclerotic hear t disease of [place] coronary artery without angina pectoris 03/11/2022 Active K21.9 Gastro-esophageal re flux disease without esophagitis 03/11/2022 Active D64.9 Anemia, unspecified 03/11/2022 Activ e I50.32 Chronic diastolic (congestive) heart failure Active N18.4 Chronic kidney disease, stage 4 (severe) 2021 Active E78.5 Hyperlipidemia, unspecified 03/11/2022 00 Active I10. Essential (primary) hypertension 03/11/2022 Active S32.89XD Fracture of other pa rts of pelvis, subsequent encounter for fracture with routine healing 03/11/2022 Active S32.10XD Unspecified fracture of sacrum, subsequent encounter for fracture with routine healing 03/11/2022 Active E46. 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) 05/03/2022 Active R26.2 Difficulty in walking, not elsewhere classified 03/18/2022 Active Z74.1 Need for assistance with personal care 01/28/20 Active M62.81 Muscle weakness (generalized) 01/27/2022 Active R26.81 Unsteadiness on feet 01/27/2022 Acti ve 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 01/27/2022 00 Active U07.1 COVID-19 05/03/2022 Active VITAL SIGNS Date Time Diastolic blood pressure Systolic blood pressure Body height Body weight Temperature SpO2 Blood Sugar Pulse Respirations 818 13408 3 98.20 Ear 818 63694 2 60.00 mm[Hg] - Sitting 102.00 mm[Hg] - Sitting 98.20 Ear 85.00/ min 07453 829 29811 9 68.00 mm[Hg] - Sitting 108.00 mm[Hg] - Sitting 106.00 NI 99.80 Oral 95.00 % 16.00/min 70214 829 63335 1 58.00 mm[Hg] - Sitting 109.00 mm[Hg] - Sitting 101.20 Ear 92.00 % 65.00/ min 83807 830 98335 2 58.00 mm[Hg] - Sitting 109.00 mm[Hg] - Sitting 101.20 Ear 65.00/ min 18.00/min 86087 830 01848 0 99.10 Oral 40254 830 00153 3 55.00 mm[Hg] - Sitting 110.00 mm[Hg] - Sitting 99.50 Ear 93.00 % 80.00/ min 91594 830 78354 6 107[place]00 [place] [address] 830 80144 4 53.00 mm[Hg] - Sitting 127.00 mm[Hg] - Sitting 99.30 Ear 94.00 % 66.00/ min 66353 830 01582 6 99.30 Ear 81050 830 74356 6 53.00 mm[Hg] - Sitting 127.00 mm[Hg] - Sitting 99.30 Oral 66.00/ min 18.00/min 16719 831 66458 2 74063 831 88296 6 98.50 Ear 42559 831 24548 8 53.00 mm[Hg] - Sitting 153.00 mm[Hg] - Sitting 100.20 Ear 91.00 % 65.00/ min 95341 831 88408 5 100.20 Ear 87934 831 30697 1 26345 831 61111 0 96.60 Ear 23768 831 52369 5 53.00 mm[Hg] - Sitting 153.00 mm[Hg] - Sitting 100.20 Oral 65.00/ min 18.00/min 49115 831 57992 0 38302 901 60995 4 97.20 Ear 14418 901 71278 6 62.00 mm[Hg] - Sitting 141.00 mm[Hg] - Sitting 97.60 Ear 94.00 % 67.00/ min 52583 901 27141 3 97.90 Ear 35207 901 12071 0 67.00 mm[Hg] - Lying Down 125.00 mm[Hg] - Lying Down 98.60 Ear 94.00 % 65.00/ min 51785 901 71272 0 98.60 Ear 14343 902 78356 0 97.60 Ear 88136 902 08361 3 66.00 mm[Hg] - Sitting 130.00 mm[Hg] - Sitting 97.40 Ear 93.00 % 65.00/ min 37181 902 56379 2 97.40 Ear 89592 902 77208 0 98.10 Ear 95836 902 66789 3 55.00 mm[Hg] - Sitting 95.00 mm[Hg] - Sitting 97.40 Ear 93.00 % 88.00/ min 81978 903 96524 8 97.10 Ear 88272 903 56799 1 68.00 mm[Hg] - Sitting 116.00 mm[Hg] - Sitting 97.90 Ear 97.00 % 65.00/ min 51142 903 63790 2 97.90 Ear Immunizations Vaccine Date Status COVID-19 12/16/2020 Completed COVID-19 01/06/2021 Completed COVID-19 10/02/2021 Completed COVID-19 04/02/2022 Completed COVID-19 07/30/2022 Completed Influenza 08/20/2021 Completed Influenza 08/09/2022 Completed (PCV13)Pneumococcal 02/05/2016 Completed (PPSV23)Pneumococcal 03/24/2022 Resident Re fused
--- OUTSIDE RECORDS SUMMARY | 2023-09-06 15:39 | External Medical Summary | Continuity Of Care Document ---
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 , unspecified severity, with agitation 06/15/2023 Active R26.2 Difficulty in walking, not elsewhere [...] Temperature SpO2 Blood Sugar Pulse Respirations 818 00702 3 98.20 Ear 818 59052 2 60.00 mm[Hg] - Sitting 102.00 mm[Hg] - Sitting 98.20 Ear 85.00/ min 829 75948 9 68.00 mm[Hg] - Sitting 108.00 mm[Hg] - Sitting 106.00 NI 99.80 Oral 95.00 % 16.00/min 53473 829 28961 1 58.00 mm[Hg] - Sitting 109.00 mm[Hg] - Sitting 101.20 Ear 92.00 % 65.00/ min 11332 830 21621 2 58.00 mm[Hg] - Sitting 109.00 mm[Hg] - Sitting 101.20 Ear 65.00/ min 18.00/min 95994 830 46088 0 99.10 Oral 830 23141 3 55.00 mm[Hg] - Sitting 110.00 mm[Hg] - Sitting 99.50 Ear 93.00 % 80.00/ min 830 01622 6 107.00 NI 86654 830 72394 4 53.00 mm[Hg] - Sitting 127.00 mm[Hg] - Sitting 99.30 Ear 94.00 % 66.00/ min 34003 830 68891 6 99.30 Ear 88856 830 61751 6 53.00 mm[Hg] - Sitting 127.00 mm[Hg] - Sitting 99.30 Oral 66.00/ min 18.00/min 28003 831 94278 2 90621 831 75414 6 98.50 Ear 99552 831 25478 8 53.00 mm[Hg] - Sitting 153.00 mm[Hg] - Sitting 100.20 Ear 91.00 % 65.00/ min 76463 831 37065 5 100.20 Ear 35728 831 36369 1 01878 831 28401 0 96.60 Ear 13100 831 39353 5 53.00 mm[Hg] - Sitting 153.00 mm[Hg] - Sitting 100.20 Oral 65.00/ min 18.00/min 81683 831 35608 0 87826 901 93329 4 97.20 Ear 44356 901 85015 6 62.00 mm[Hg] - Sitting 141.00 mm[Hg] - Sitting 97.60 Ear 94.00 % 67.00/ min 80022 901 86800 3 97.90 Ear 36545 901 18181 0 67.00 mm[Hg] - Lying Down 125.00 mm[Hg] - Lying Down 98.60 Ear 94.00 % 65.00/ min 52778 901 86283 0 98.60 Ear 47177 902 07939 0 97.60 Ear 71142 902 70260 3 66.00 mm[Hg] - Sitting 130.00 mm[Hg] - Sitting 97.40 Ear 93.00 % 65.00/ min 78942 902 93525 2 97.40 Ear 34190 902 96794 0 98.10 Ear 09657 902 55232 3 55.00 mm[Hg] - Sitting 95.00 mm[Hg] - Sitting 97.40 Ear 93.00 % 88.00/ min 31122 903 80414 8 97.10 Ear 80422 903 65280 1 68.00 mm[Hg] - Sitting 116.00 mm[Hg] - Sitting 97.90 Ear 97.00 % 65.00/ min 20521 903 80239 2 97.90 Ear 11973 903 79773 2 68.00 mm[Hg] - Sitting 116.00 mm[Hg] - Sitting 97.90 Ear 97.00 % 65.00/ min 18826 903 70450 0 97.70 Ear 30313 904 89069 5 97.20 Ear 99265 904 90361 1 72.00 mm[Hg] - Sitting 139.00 mm[Hg] - Sitting 97.70 Ear 97.00 % 65.00/ min 75046 904 27387 3 97.30 Oral 22735 904 05833 7 66.00 mm[Hg] - Sitting 116.00 mm[Hg] - Sitting 97.30 Oral 96.00 % 65.00/ min 53864 904 47810 4 75.00 mm[Hg] - Sitting 122.00 mm[Hg] - Sitting 98.50 Oral 95.00 % 86.00/ min 73777 905 39326 9 98.60 Oral 43143 905 00632 0 108.00 NI 71145 905 36925 8 53.00 mm[Hg] - Sitting 146.00 mm[Hg] - Sitting 97.60 Ear 72.00/ min 00980 905 62849 8 53.00 mm[Hg] - Sitting 146.00 mm[Hg] - Sitting 97.60 Ear 95.00 % 72.00/ min 70193 905 72564 8 97.80 Ear 05108 906 84255 9 98.10 Ear 67533 906 37806 5 97.60 Ear 30858 906 90400 0 70.00 mm[Hg] - Sitting 150.00 mm[Hg] - Sitting 96.90 Ear 94.00 % 72.00/ min 33768 906 13540 9 96.90 Ear 12779 906 44475 0 74.00 mm[Hg] - Sitting 117.00 mm[Hg] - Sitting 98.30 Ear 94.00 % 83.00/ min 16329 907 22912 0 97.80 Ear 56437 907 46954 0 69.00 mm[Hg] - Sitting 113.00 mm[Hg] - Sitting 97.20 Ear 91.00 % 84.00/ min 05873 907 90755 6 97.20 Ear 18371 908 40920 6 66.00 mm[Hg] - Sitting 146.00 mm[Hg] - Sitting 97.70 Ear 96.00 % 68.00/ min 83770 908 01145 3 97.70 Oral Immunizations Vaccine Date Status COVID-19 12/16/2020 Completed COVID-19 01/06/2021 Completed COVID-19 10/02/2021 Completed COVID-19 04/02/2022 Completed COVID-19 07/30/2022 Completed Influenza 08/20/2021 Completed Influenza 08/09/2022 Completed (PCV13)Pneumococcal 02/05/2016 Completed (PPSV23)Pneumococcal 03/24/2022 Resident Re fused
--- OUTSIDE RECORDS SUMMARY | 2023-09-06 15:39 | External Medical Summary | Continuity Of Care Document ---
Author Name Unknown Address [address] [place] [address] Organization [facility]) Care Team Providers Care Hand Trucker Name Role Phone Saida Moon Primary Care Provider [phone] Problems Code Description Start Date End Date [...] Active I25.10 Atherosclerotic hear t disease of [place] coronary artery without angina pectoris 03/11/2022 Active [...] , unspecified severity, with agitation 06/15/2023 Active R13.11 Dysphagia, oral phase 06/22/2023 Act hua R26.2 Difficulty in walking, not elsewhere classified 03/18/2022 Active Z74.1 Need for assistance with personal care 01/28/20 Active M62.81 Muscle weakness (generalized) 01/27/2022 Active R26.81 Unsteadiness on feet 01/27/2022 Acti ve 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 01/27/2022 00 Active U07.1 COVID-19 05/03/2022 Active VITAL SIGNS Date Time Diastolic blood pressure Systolic blood pressure Body height Body weight Temperature SpO2 Blood Sugar Pulse Respirations 016 57795 9 70.00 mm[Hg] - Lying Down 154.00 mm[Hg] - Lying Down 64.00/ min 023 82826 3 107.00 NI 107 40607 3 105.00 NI 107 11356 8 71.00 mm[Hg] - Sitting 129.00 mm[Hg] - Sitting 97.20 Ear 96.00/ min Immunizations Vaccine Date Status COVID-19 12/16/2020 Completed COVID-19 01/06/2021 Completed COVID-19 10/02/2021 Completed COVID-19 04/02/2022 Completed COVID-19 07/30/2022 Completed Influenza 08/20/2021 Completed Influenza 08/09/2022 Completed Influenza 08/04/2023 Completed (PCV13)Pneumococcal 02/05/2016 Completed (PPSV23)Pneumococcal 03/24/2022 Resident Re fused (PCV20)Pneumococcal 07/07/2023 Family Refus ed
--- OUTSIDE RECORDS SUMMARY | 2023-09-06 15:39 | External Medical Summary | Continuity Of Care Document ---
Author Name Unknown Address [address] [place] [address] Organization [facility]) Care Team Providers Care Certified Cytotechnologist Name Role Phone Saida Moon Primary Care Provider [phone] Problems Code Description Start Date End Date [...] Active I25.10 Atherosclerotic hear t disease of [place] coronary artery without angina pectoris 03/11/2022 Active [...] Temperature SpO2 Blood Sugar Pulse Respirations 818 63431 3 98.20 Ear 818 20490 2 60.00 mm[Hg] - Sitting 102.00 mm[Hg] - Sitting 98.20 Ear 85.00/ min 829 56418 9 68.00 mm[Hg] - Sitting 108.00 mm[Hg] - Sitting 106.00 NI 99.80 Oral 95.00 % 16.00/min 00663 829 40156 1 58.00 mm[Hg] - Sitting 109.00 mm[Hg] - Sitting 101.20 Ear 92.00 % 65.00/ min 72917 830 35025 2 58.00 mm[Hg] - Sitting 109.00 mm[Hg] - Sitting 101.20 Ear 65.00/ min 18.00/min 37325 830 02288 0 99.10 Oral 830 60453 3 55.00 mm[Hg] - Sitting 110.00 mm[Hg] - Sitting 99.50 Ear 93.00 % 80.00/ min 830 51106 6 107.00 NI 96553 830 50176 4 53.00 mm[Hg] - Sitting 127.00 mm[Hg] - Sitting 99.30 Ear 94.00 % 66.00/ min 24188 830 83710 6 99.30 Ear 60712 830 81573 6 53.00 mm[Hg] - Sitting 127.00 mm[Hg] - Sitting 99.30 Oral 66.00/ min 18.00/min 06907 831 16831 2 25804 831 70561 6 98.50 Ear 59983 831 69194 8 53.00 mm[Hg] - Sitting 153.00 mm[Hg] - Sitting 100.20 Ear 91.00 % 65.00/ min 87695 831 33614 5 100.20 Ear 04184 831 25643 1 90967 831 91475 0 96.60 Ear 83733 831 89458 5 53.00 mm[Hg] - Sitting 153.00 mm[Hg] - Sitting 100.20 Oral 65.00/ min 18.00/min 33848 831 91540 0 95904 901 20194 4 97.20 Ear 15762 901 95654 6 62.00 mm[Hg] - Sitting 141.00 mm[Hg] - Sitting 97.60 Ear 94.00 % 67.00/ min 46770 901 99895 3 97.90 Ear 35116 901 42496 0 67.00 mm[Hg] - Lying Down 125.00 mm[Hg] - Lying Down 98.60 Ear 94.00 % 65.00/ min 20331 901 11936 0 98.60 Ear 90616 902 91600 0 97.60 Ear 58830 902 50884 3 66.00 mm[Hg] - Sitting 130.00 mm[Hg] - Sitting 97.40 Ear 93.00 % 65.00/ min 20175 902 60921 2 97.40 Ear 01203 902 05854 0 98.10 Ear 19531 902 09518 3 55.00 mm[Hg] - Sitting 95.00 mm[Hg] - Sitting 97.40 Ear 93.00 % 88.00/ min 24893 903 74298 8 97.10 Ear 25441 903 08243 1 68.00 mm[Hg] - Sitting 116.00 mm[Hg] - Sitting 97.90 Ear 97.00 % 65.00/ min 13283 903 15534 2 97.90 Ear 02548 903 21168 2 68.00 mm[Hg] - Sitting 116.00 mm[Hg] - Sitting 97.90 Ear 97.00 % 65.00/ min 21466 903 33114 0 97.70 Ear 11234 904 60927 5 97.20 Ear 46242 904 46571 1 72.00 mm[Hg] - Sitting 139.00 mm[Hg] - Sitting 97.70 Ear 97.00 % 65.00/ min 82855 904 06486 3 97.30 Oral 99547 904 23939 7 66.00 mm[Hg] - Sitting 116.00 mm[Hg] - Sitting 97.30 Oral 96.00 % 65.00/ min 94010 904 85873 4 75.00 mm[Hg] - Sitting 122.00 mm[Hg] - Sitting 98.50 Oral 95.00 % 86.00/ min 54561 905 56022 9 98.60 Oral 05198 905 19922 0 108.00 NI 85656 905 78973 8 53.00 mm[Hg] - Sitting 146.00 mm[Hg] - Sitting 97.60 Ear 72.00/ min 09219 905 73404 8 53.00 mm[Hg] - Sitting 146.00 mm[Hg] - Sitting 97.60 Ear 95.00 % 72.00/ min 905 34296 8 97.80 Ear 906 30038 9 98.10 Ear Immunizations Vaccine Date Status COVID-19 12/16/2020 Completed COVID-19 01/06/2021 Completed COVID-19 10/02/2021 Completed COVID-19 04/02/2022 Completed COVID-19 07/30/2022 Completed Influenza 08/20/2021 Completed Influenza 08/09/2022 Completed (PCV13)Pneumococcal 02/05/2016 Completed (PPSV23)Pneumococcal 03/24/2022 Resident Re fused
--- OUTSIDE RECORDS SUMMARY | 2023-09-06 15:39 | External Medical Summary | Continuity Of Care Document ---
Author Name Unknown Address [address] [place] [address] Organization [facility]) Care Team Providers Care Orthopedic Cast Specialist Name Role Phone Saida Moon Primary Care Provider [phone] Problems Code Description Start Date End Date [...] Active I25.10 Atherosclerotic hear t disease of [place] coronary artery without angina pectoris 03/11/2022 Active [...] Temperature SpO2 Blood Sugar Pulse Respirations 818 85738 3 98.20 Ear 818 42674 2 60.00 mm[Hg] - Sitting 102.00 mm[Hg] - Sitting 98.20 Ear 85.00/ min 829 66433 9 68.00 mm[Hg] - Sitting 108.00 mm[Hg] - Sitting 106.00 NI 99.80 Oral 95.00 % 16.00/min 73298 829 49720 1 58.00 mm[Hg] - Sitting 109.00 mm[Hg] - Sitting 101.20 Ear 92.00 % 65.00/ min 18976 830 00398 2 58.00 mm[Hg] - Sitting 109.00 mm[Hg] - Sitting 101.20 Ear 65.00/ min 18.00/min 29976 830 53753 0 99.10 Oral 830 26236 3 55.00 mm[Hg] - Sitting 110.00 mm[Hg] - Sitting 99.50 Ear 93.00 % 80.00/ min 830 62416 6 107.00 NI 25662 830 83818 4 53.00 mm[Hg] - Sitting 127.00 mm[Hg] - Sitting 99.30 Ear 94.00 % 66.00/ min 78860 830 67655 6 99.30 Ear 58462 830 68275 6 53.00 mm[Hg] - Sitting 127.00 mm[Hg] - Sitting 99.30 Oral 66.00/ min 18.00/min 18272 831 15828 2 49261 831 58534 6 98.50 Ear 66636 831 24858 8 53.00 mm[Hg] - Sitting 153.00 mm[Hg] - Sitting 100.20 Ear 91.00 % 65.00/ min 27866 831 39825 5 100.20 Ear 58722 831 25079 1 36312 831 12827 0 96.60 Ear 34744 831 55732 5 53.00 mm[Hg] - Sitting 153.00 mm[Hg] - Sitting 100.20 Oral 65.00/ min 18.00/min 72518 831 62253 0 97816 901 39350 4 97.20 Ear 34302 901 82506 6 62.00 mm[Hg] - Sitting 141.00 mm[Hg] - Sitting 97.60 Ear 94.00 % 67.00/ min 47507 901 09172 3 97.90 Ear 97430 901 96583 0 67.00 mm[Hg] - Lying Down 125.00 mm[Hg] - Lying Down 98.60 Ear 94.00 % 65.00/ min 20122 901 36346 0 98.60 Ear 38729 902 43332 0 97.60 Ear 07448 902 28557 3 66.00 mm[Hg] - Sitting 130.00 mm[Hg] - Sitting 97.40 Ear 93.00 % 65.00/ min 07808 902 33539 2 97.40 Ear 95496 902 12050 0 98.10 Ear 47035 902 17624 3 55.00 mm[Hg] - Sitting 95.00 mm[Hg] - Sitting 97.40 Ear 93.00 % 88.00/ min 69009 903 71187 8 97.10 Ear 08420 903 48385 1 68.00 mm[Hg] - Sitting 116.00 mm[Hg] - Sitting 97.90 Ear 97.00 % 65.00/ min 57204 903 07561 2 97.90 Ear 58842 903 60830 2 68.00 mm[Hg] - Sitting 116.00 mm[Hg] - Sitting 97.90 Ear 97.00 % 65.00/ min 68196 903 81387 0 97.70 Ear 56454 904 41011 5 97.20 Ear 04092 904 59589 1 72.00 mm[Hg] - Sitting 139.00 mm[Hg] - Sitting 97.70 Ear 97.00 % 65.00/ min 66336 904 75089 3 97.30 Oral 81840 904 49463 7 66.00 mm[Hg] - Sitting 116.00 mm[Hg] - Sitting 97.30 Oral 96.00 % 65.00/ min 20792 904 61015 4 75.00 mm[Hg] - Sitting 122.00 mm[Hg] - Sitting 98.50 Oral 95.00 % 86.00/ min 49932 905 37412 9 98.60 Oral 28037 905 05543 0 108.00 NI 46069 905 21646 8 53.00 mm[Hg] - Sitting 146.00 mm[Hg] - Sitting 97.60 Ear 72.00/ min 28232 905 58410 8 53.00 mm[Hg] - Sitting 146.00 mm[Hg] - Sitting 97.60 Ear 95.00 % 72.00/ min 50205 905 29119 8 97.80 Ear 88325 906 11921 9 98.10 Ear 52365 906 69955 5 97.60 Ear 61351 906 05660 0 70.00 mm[Hg] - Sitting 150.00 mm[Hg] - Sitting 96.90 Ear 94.00 % 72.00/ min 50857 906 65837 9 96.90 Ear 29828 906 28381 0 74.00 mm[Hg] - Sitting 117.00 mm[Hg] - Sitting 98.30 Ear 94.00 % 83.00/ min 98517 907 86870 0 97.80 Ear 35713 907 02582 0 69.00 mm[Hg] - Sitting 113.00 mm[Hg] - Sitting 97.20 Ear 91.00 % 84.00/ min 27913 907 05697 6 97.20 Ear 44086 908 39556 6 66.00 mm[Hg] - Sitting 146.00 mm[Hg] - Sitting 97.70 Ear 96.00 % 68.00/ min 66814 908 69654 3 97.70 Oral Immunizations Vaccine Date Status COVID-19 12/16/2020 Completed COVID-19 01/06/2021 Completed COVID-19 10/02/2021 Completed COVID-19 04/02/2022 Completed COVID-19 07/30/2022 Completed Influenza 08/20/2021 Completed Influenza 08/09/2022 Completed (PCV13)Pneumococcal 02/05/2016 Completed (PPSV23)Pneumococcal 03/24/2022 Resident Re fused
--- OUTSIDE RECORDS SUMMARY | 2023-09-06 15:39 | External Medical Summary | Continuity Of Care Document ---
Author Name Unknown Address [address] [place] [address] Organization [facility]) Care Team Providers Care Snapper On Name Role Phone Saida Moon Primary Care Provider [phone] Problems Code Description Start Date End Date [...] Active I25.10 Atherosclerotic hear t disease of [place] coronary artery without angina pectoris 03/11/2022 Active [...] Temperature SpO2 Blood Sugar Pulse Respirations 818 21021 3 98.20 Ear 818 53191 2 60.00 mm[Hg] - Sitting 102.00 mm[Hg] - Sitting 98.20 Ear 85.00/ min 48922 829 60227 9 68.00 mm[Hg] - Sitting 108.00 mm[Hg] - Sitting 106.00 NI 99.80 Oral 95.00 % 16.00/min 50785 829 07279 1 58.00 mm[Hg] - Sitting 109.00 mm[Hg] - Sitting 101.20 Ear 92.00 % 65.00/ min 37256 830 62885 2 58.00 mm[Hg] - Sitting 109.00 mm[Hg] - Sitting 101.20 Ear 65.00/ min 18.00/min 83842 830 73149 0 99.10 Oral 10273 830 99120 3 55.00 mm[Hg] - Sitting 110.00 mm[Hg] - Sitting 99.50 Ear 93.00 % 80.00/ min 03761 830 66392 6 107.00 NI 08794 830 89564 4 53.00 mm[Hg] - Sitting 127.00 mm[Hg] - Sitting 99.30 Ear 94.00 % 66.00/ min 31952 830 74367 6 99.30 Ear 88547 830 50059 6 53.00 mm[Hg] - Sitting 127.00 mm[Hg] - Sitting 99.30 Oral 66.00/ min 18.00/min 07327 831 36707 2 63691 831 40151 6 98.50 Ear 61945 831 71413 8 53.00 mm[Hg] - Sitting 153.00 mm[Hg] - Sitting 100.20 Ear 91.00 % 65.00/ min 26900 831 60908 5 100.20 Ear 01283 831 63425 1 98072 831 51772 0 96.60 Ear 56189 831 72943 5 53.00 mm[Hg] - Sitting 153.00 mm[Hg] - Sitting 100.20 Oral 65.00/ min 18.00/min 84901 831 59523 0 63752 901 18590 4 97.20 Ear 43089 901 19486 6 62.00 mm[Hg] - Sitting 141.00 mm[Hg] - Sitting 97.60 Ear 94.00 % 67.00/ min 49800 901 96444 3 97.90 Ear 76313 901 42535 0 67.00 mm[Hg] - Lying Down 125.00 mm[Hg] - Lying Down 98.60 Ear 94.00 % 65.00/ min 66872 901 82190 0 98.60 Ear 65159 902 35244 0 97.60 Ear 75539 902 77229 3 66.00 mm[Hg] - Sitting 130.00 mm[Hg] - Sitting 97.40 Ear 93.00 % 65.00/ min 58270 902 11699 2 97.40 Ear 03310 902 33476 0 98.10 Ear 32987 902 27404 3 55.00 mm[Hg] - Sitting 95.00 mm[Hg] - Sitting 97.40 Ear 93.00 % 88.00/ min 14218 903 14150 8 97.10 Ear 14525 903 70654 1 68.00 mm[Hg] - Sitting 116.00 mm[Hg] - Sitting 97.90 Ear 97.00 % 65.00/ min 43485 903 41229 2 97.90 Ear 36649 903 85714 2 68.00 mm[Hg] - Sitting 116.00 mm[Hg] - Sitting 97.90 Ear 97.00 % 65.00/ min 63126 903 03165 0 97.70 Ear 24364 904 54105 5 97.20 Ear 09187 904 37743 1 72.00 mm[Hg] - Sitting 139.00 mm[Hg] - Sitting 97.70 Ear 97.00 % 65.00/ min 63186 904 70966 3 97.30 Oral 53815 904 78383 7 66.00 mm[Hg] - Sitting 116.00 mm[Hg] - Sitting 97.30 Oral 96.00 % 65.00/ min 38915 904 77475 4 75.00 mm[Hg] - Sitting 122.00 mm[Hg] - Sitting 98.50 Oral 95.00 % 86.00/ min 96820 905 70299 9 98.60 Oral Immunizations Vaccine Date Status COVID-19 12/16/2020 Completed COVID-19 01/06/2021 Completed COVID-19 10/02/2021 Completed COVID-19 04/02/2022 Completed COVID-19 07/30/2022 Completed Influenza 08/20/2021 Completed Influenza 08/09/2022 Completed (PCV13)Pneumococcal 02/05/2016 Completed (PPSV23)Pneumococcal 03/24/2022 Resident Re fused
--- OUTSIDE RECORDS SUMMARY | 2023-09-06 15:39 | External Medical Summary | Continuity Of Care Document ---
Author Name Unknown Address [address] [place] [address] Organization [facility]) Care Team Providers Care Power House Engineer Name Role Phone Saida Moon Primary Care Provider [phone] Problems Code Description Start Date End Date [...] Active I25.10 Atherosclerotic hear t disease of [place] coronary artery without angina pectoris 03/11/2022 Active [...] Temperature SpO2 Blood Sugar Pulse Respirations 016 76498 9 70.00 mm[Hg] - Lying Down 154.00 mm[Hg] - Lying Down 64.00/ min 023 12246 3 107.00 NI 107 57787 3 105.00 NI 107 13749 8 71.00 mm[Hg] - Sitting 129.00 mm[Hg] - Sitting 97.20 Ear 96.00/ min Immunizations Vaccine Date Status COVID-19 12/16/2020 Completed COVID-19 01/06/2021 Completed COVID-19 10/02/2021 Completed COVID-19 04/02/2022 Completed COVID-19 07/30/2022 Completed Influenza 08/20/2021 Completed Influenza 08/09/2022 Completed Influenza 08/04/2023 Completed (PCV13)Pneumococcal 02/05/2016 Completed (PPSV23)Pneumococcal 03/24/2022 Resident Re fused (PCV20)Pneumococcal 07/07/2023 Family Refus ed
--- OUTSIDE RECORDS SUMMARY | 2023-09-06 15:39 | External Medical Summary | Continuity Of Care Document ---
Author Name Unknown Address [address] [place] [address] Organization [facility] ( ) Care Team Providers Care Register In Chancery Name Role Phone Saida Moon Primary Care Provider [phone] VITAL SIGNS Date Time Diastolic blood pressure Systolic blood pressure Body height Body weight Temperature SpO2 Blood Sugar Pulse Respirations 801 40560 5 110.00 NI 97.60 Ear 801 41251 3 70.00 mm[Hg] - Sitting 132.00 mm[Hg] - Sitting 73263 818 68797 3 98.20 Ear 818 67061 2 60.00 mm[Hg] - Sitting 102.00 mm[Hg] - Sitting 98.20 Ear 85.00/ min 81152 829 56141 9 68.00 mm[Hg] - Sitting 108.00 mm[Hg] - Sitting 106.00 NI 99.80 Oral 95.00 % 16.00/min 05544 829 83834 1 58.00 mm[Hg] - Sitting 109.00 mm[Hg] - Sitting 101.20 Ear 92.00 % 65.00/ min 26653 830 26008 2 58.00 mm[Hg] - Sitting 109.00 mm[Hg] - Sitting 101.20 Ear 65.00/ min 18.00/min 67497 830 74209 0 99.10 Oral Immunizations Vaccine Date Status COVID-19 12/16/2020 Completed COVID-19 01/06/2021 Completed COVID-19 10/02/2021 Completed COVID-19 04/02/2022 Completed COVID-19 07/30/2022 Completed Influenza 08/20/2021 Completed Influenza 08/09/2022 Completed (PCV13)Pneumococcal 02/05/2016 Completed (PPSV23)Pneumococcal 03/24/2022 Resident Re fused
--- OUTSIDE RECORDS SUMMARY | 2023-09-06 15:39 | External Medical Summary | Continuity Of Care Document ---
Author Name Unknown Address [address] [place] [address] Organization [facility]) Care Team Providers Care Manager Life Name Role Phone Saida Moon Primary Care Provider [phone] Problems Code Description Start Date End Date [...] Active I25.10 Atherosclerotic hear t disease of [place] coronary artery without angina pectoris 03/11/2022 Active [...] weight Temperature SpO2 Blood Sugar Pulse Respirations 829 57180 9 68.00 mm[Hg] - Sitting 108.00 mm[Hg] - Sitting 106.00 NI 99.80 Oral 95.00 % 16.00/min 57190 829 54828 1 58.00 mm[Hg] - Sitting 109.00 mm[Hg] - Sitting 101.20 Ear 92.00 % 65.00/ min 96321 830 77797 2 58.00 mm[Hg] - Sitting 109.00 mm[Hg] - Sitting 101.20 Ear 65.00/ min 18.00/min 26480 830 06109 0 99.10 Oral 96944 830 21584 3 55.00 mm[Hg] - Sitting 110.00 mm[Hg] - Sitting 99.50 Ear 93.00 % 80.00/ min 19671 830 81130 6 107.00 NI 94269 830 49862 4 53.00 mm[Hg] - Sitting 127.00 mm[Hg] - Sitting 99.30 Ear 94.00 % 66.00/ min 36803 830 08171 6 99.30 Ear 11063 830 07934 6 53.00 mm[Hg] - Sitting 127.00 mm[Hg] - Sitting 99.30 Oral 66.00/ min 18.00/min 16452 831 79255 2 81036 831 35097 6 98.50 Ear 34177 831 50804 8 53.00 mm[Hg] - Sitting 153.00 mm[Hg] - Sitting 100.20 Ear 91.00 % 65.00/ min 05273 831 87713 5 100.20 Ear 72840 831 92974 1 97124 831 36932 0 96.60 Ear 60335 831 55494 5 53.00 mm[Hg] - Sitting 153.00 mm[Hg] - Sitting 100.20 Oral 65.00/ min 18.00/min 79712 831 51143 0 48700 901 88293 4 97.20 Ear 76547 901 03230 6 62.00 mm[Hg] - Sitting 141.00 mm[Hg] - Sitting 97.60 Ear 94.00 % 67.00/ min 67202 901 12272 3 97.90 Ear 01562 901 78802 0 67.00 mm[Hg] - Lying Down 125.00 mm[Hg] - Lying Down 98.60 Ear 94.00 % 65.00/ min 23747 901 01757 0 98.60 Ear 89747 902 85447 0 97.60 Ear 91761 902 08424 3 66.00 mm[Hg] - Sitting 130.00 mm[Hg] - Sitting 97.40 Ear 93.00 % 65.00/ min 17543 902 18861 2 97.40 Ear 22229 902 38912 0 98.10 Ear 23947 902 75317 3 55.00 mm[Hg] - Sitting 95.00 mm[Hg] - Sitting 97.40 Ear 93.00 % 88.00/ min 11266 903 95725 8 97.10 Ear 41433 903 48507 1 68.00 mm[Hg] - Sitting 116.00 mm[Hg] - Sitting 97.90 Ear 97.00 % 65.00/ min 56511 903 02687 2 97.90 Ear 80022 903 66079 2 68.00 mm[Hg] - Sitting 116.00 mm[Hg] - Sitting 97.90 Ear 97.00 % 65.00/ min 14168 903 23662 0 97.70 Ear 95266 904 51051 5 97.20 Ear 12843 904 61504 1 72.00 mm[Hg] - Sitting 139.00 mm[Hg] - Sitting 97.70 Ear 97.00 % 65.00/ min 87842 904 86273 3 97.30 Oral 44611 904 60247 7 66.00 mm[Hg] - Sitting 116.00 mm[Hg] - Sitting 97.30 Oral 96.00 % 65.00/ min 98756 904 79904 4 75.00 mm[Hg] - Sitting 122.00 mm[Hg] - Sitting 98.50 Oral 95.00 % 86.00/ min 95561 905 94577 9 98.60 Oral 34822 905 73546 0 108.00 NI 62592 905 47953 8 53.00 mm[Hg] - Sitting 146.00 mm[Hg] - Sitting 97.60 Ear 72.00/ min 42325 905 80144 8 53.00 mm[Hg] - Sitting 146.00 mm[Hg] - Sitting 97.60 Ear 95.00 % 72.00/ min 83382 905 88843 8 97.80 Ear 85357 906 86455 9 98.10 Ear 90529 906 53280 5 97.60 Ear 54393 906 54906 0 70.00 mm[Hg] - Sitting 150.00 mm[Hg] - Sitting 96.90 Ear 94.00 % 72.00/ min 77794 906 25748 9 96.90 Ear 28000 906 64021 0 74.00 mm[Hg] - Sitting 117.00 mm[Hg] - Sitting 98.30 Ear 94.00 % 83.00/ min 66399 907 59850 0 97.80 Ear 30911 907 31714 0 69.00 mm[Hg] - Sitting 113.00 mm[Hg] - Sitting 97.20 Ear 91.00 % 84.00/ min 34803 907 58620 6 97.20 Ear 73455 908 52275 6 66.00 mm[Hg] - Sitting 146.00 mm[Hg] - Sitting 97.70 Ear 96.00 % 68.00/ min 73831 908 38276 3 97.70 Oral 56761 908 55725 0 75.00 mm[Hg] - Sitting 129.00 mm[Hg] - Sitting 97.70 Ear 97.00 % 83.00/ min 97471 908 60047 4 97.40 Ear 07997 908 59439 9 97.50 Ear 93398 908 92711 0 75.00 mm[Hg] - Sitting 115.00 mm[Hg] - Sitting 97.50 Ear 93.00 % 86.00/ min 47639 909 90376 0 97.80 Ear 03730 909 30288 0 68.00 mm[Hg] - Sitting 119.00 mm[Hg] - Sitting 97.80 Oral 93.00 % 82.00/ min 58162 909 45294 0 66.00 mm[Hg] - Sitting 117.00 mm[Hg] - Sitting 97.40 Ear 96.00 % 80.00/ min 56357 910 62942 2 97.40 Oral 92.00 % 52276 910 77916 8 58.00 mm[Hg] - Sitting 134.00 mm[Hg] - Sitting 98.00 Ear 91.00 % 66.00/ min 94866 911 73362 8 65.00 mm[Hg] - Sitting 166.00 mm[Hg] - Sitting 97.00 Ear 91.00 % 65.00/ min 91889 0 82.00 mm[Hg] - Lying Down 143.00 mm[Hg] - Lying Down 97.60 Ear 97.00 % 65.00/ min 912 40309 7 97567 3 925 48949 5 109.00 NI Immunizations Vaccine Date Status COVID-19 12/16/2020 Completed COVID-19 01/06/2021 Completed COVID-19 10/02/2021 Completed COVID-19 04/02/2022 Completed COVID-19 07/30/2022 Completed Influenza 08/20/2021 Completed Influenza 08/09/2022 Completed (PCV13)Pneumococcal 02/05/2016 Completed (PPSV23)Pneumococcal 03/24/2022 Resident Re fused (PCV20)Pneumococcal 07/07/2023 Family Refus ed
--- OUTSIDE RECORDS SUMMARY | 2023-09-06 15:39 | External Medical Summary | Continuity Of Care Document ---
Author Name Unknown Address [address] [place] [address] Organization [facility] ( ) Care Team Providers Care Bunk Assembler Name Role Phone Saida Moon Primary Care Provider [phone] Problems Code Description Start Date End Date Status G93.41 Metabolic encephalopathy 06/15/2023 Active N39.0 Urinary tract infection, site not specified 00/0000 Active VITAL SIGNS Date Time Diastolic blood pressure Systolic blood pressure Body height Body weight Temperature SpO2 Blood Sugar Pulse Respirations 818 49729 3 98.20 Ear 818 25449 2 60.00 mm[Hg] - Sitting 102.00 mm[Hg] - Sitting 98.20 Ear 85.00/ min 23709 829 99692 9 68.00 mm[Hg] - Sitting 108.00 mm[Hg] - Sitting 106.00 NI 99.80 Oral 95.00 % 16.00/min 63212 829 15101 1 58.00 mm[Hg] - Sitting 109.00 mm[Hg] - Sitting 101.20 Ear 92.00 % 65.00/ min 47297 830 16040 2 58.00 mm[Hg] - Sitting 109.00 mm[Hg] - Sitting 101.20 Ear 65.00/ min 18.00/min 50186 830 92655 0 99.10 Oral 14827 830 88876 3 55.00 mm[Hg] - Sitting 110.00 mm[Hg] - Sitting 99.50 Ear 93.00 % 80.00/ min 54008 830 22535 6 107.00 NI 31345 830 17407 4 53.00 mm[Hg] - Sitting 127.00 mm[Hg] - Sitting 99.30 Ear 94.00 % 66.00/ min 62834 830 08122 6 99.30 Ear 13780 830 35852 6 53.00 mm[Hg] - Sitting 127.00 mm[Hg] - Sitting 99.30 Oral 66.00/ min 18.00/min 80196 831 16007 2 47924 831 29879 6 98.50 Ear 98074 831 93592 8 53.00 mm[Hg] - Sitting 153.00 mm[Hg] - Sitting 100.20 Ear 91.00 % 65.00/ min 53353 831 60350 5 100.20 Ear 53018 831 58994 1 17445 831 20502 0 96.60 Ear 77900 831 54037 5 53.00 mm[Hg] - Sitting 153.00 mm[Hg] - Sitting 100.20 Oral 65.00/ min 18.00/min 42116 831 30049 0 15820 901 12203 4 97.20 Ear 58491 901 64557 6 62.00 mm[Hg] - Sitting 141.00 mm[Hg] - Sitting 97.60 Ear 94.00 % 67.00/ min 28951 901 81850 3 97.90 Ear 36190 901 68154 0 67.00 mm[Hg] - Lying Down 125.00 mm[Hg] - Lying Down 98.60 Ear 94.00 % 65.00/ min 16761 901 87857 0 98.60 Ear 20436 902 54175 0 97.60 Ear 62041 902 56448 3 66.00 mm[Hg] - Sitting 130.00 mm[Hg] - Sitting 97.40 Ear 93.00 % 65.00/ min 84861 902 01331 2 97.40 Ear 08824 902 88839 0 98.10 Ear 15446 902 66808 3 55.00 mm[Hg] - Sitting 95.00 mm[Hg] - Sitting 97.40 Ear 93.00 % 88.00/ min 32253 903 30764 8 97.10 Ear 05582 903 28150 1 68.00 mm[Hg] - Sitting 116.00 mm[Hg] - Sitting 97.90 Ear 97.00 % 65.00/ min 94640 903 06518 2 97.90 Ear Immunizations Vaccine Date Status COVID-19 12/16/2020 Completed COVID-19 01/06/2021 Completed COVID-19 10/02/2021 Completed COVID-19 04/02/2022 Completed COVID-19 07/30/2022 Completed Influenza 08/20/2021 Completed Influenza 08/09/2022 Completed (PCV13)Pneumococcal 02/05/2016 Completed (PPSV23)Pneumococcal 03/24/2022 Resident Re fused
--- OUTSIDE RECORDS SUMMARY | 2023-09-06 15:39 | External Medical Summary | Continuity Of Care Document ---
Author Name Unknown Address [address] [place] [address] Organization [facility] ( ) Care Team Providers Care Radiology Physician Assistant Name Role Phone Saida Moon Primary Care Provider [phone] Problems Code Description Start Date End Date Status S72.001D Fracture of unspecif ied part of [...] libra itus with diabetic polyneuropathy 01/20/2022 Active I48.91 Unspecified atrial fibrillation 01/20/2022 00/ Active E03.9 Hypothyroidism, unspecified 01/20/2022 00 Active Z95.0 Presence of cardiac pacemaker 01/20/2022 Active Z95.1 Presence of aortocoronary bypass graft 01/21/20 Active K20.90 Esophagitis, unspecified without bleeding 01/20 Active I25.10 Atherosclerotic hear t disease of [place] coronary artery without angina pectoris 03/11/2022 Active K21.9 Gastro-esophageal re flux disease without esophagitis 03/11/2022 Active D64.9 Anemia, unspecified 03/11/2022 Activ e I50.32 Chronic diastolic (congestive) heart failure Active N18.4 Chronic kidney disease, stage 4 (severe) 2021 Active Z86.73 Personal history of transient ischemic attack (TIA), and cerebral infarction without residual deficits 03/11/2022 Active E78.5 Hyperlipidemia, unspecified 03/11/2022 00 Active I10. Essential (primary) hypertension 03/11/2022 Active S32.89XD Fracture of other pa rts of pelvis, subsequent encounter for fracture with routine healing 03/11/2022 Active S32.10XD Unspecified fracture of sacrum, subsequent encounter for fracture with routine healing 03/11/2022 Active E46. 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) 05/03/2022 Active N39.0 Urinary tract infection, site not specified Active K20.90 Esophagitis, unspecified without bleeding 05/03 Active I35.0 Nonrheumatic aortic (valve) stenosis 05/03/2022 Active E03.9 Hypothyroidism, unspecified 05/03/2022 Active E11.9 Type 2 diabetes mellitus without complications 05/03/2022 Active R26.2 Difficulty in walking, not elsewhere classified 03/18/2022 Active Z74.1 Need for assistance with personal care 01/28/20 Active M62.81 Muscle weakness (generalized) 01/27/2022 Active R26.81 Unsteadiness on feet 01/27/2022 Acti ve 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 01/27/2022 Active U07.1 COVID-19 05/03/2022 Active VITAL SIGNS Date Time Diastolic blood pressure Systolic blood pressure Body height Body weight Temperature SpO2 Blood Sugar Pulse Respirations 801 95883 5 110.00 NI 97.60 Ear 801 38346 3 70.00 mm[Hg] - Sitting 132.00 mm[Hg] - Sitting 818 37141 3 98.20 Ear 818 71097 2 60.00 mm[Hg] - Sitting 102.00 mm[Hg] - Sitting 98.20 Ear 85.00/ min Immunizations Vaccine Date Status COVID-19 12/16/2020 Completed COVID-19 01/06/2021 Completed COVID-19 10/02/2021 Completed COVID-19 04/02/2022 Completed COVID-19 07/30/2022 Completed Influenza 08/20/2021 Completed Influenza 08/09/2022 Completed (PCV13)Pneumococcal 02/05/2016 Completed (PPSV23)Pneumococcal 03/24/2022 Resident Re fused
--- OUTSIDE RECORDS SUMMARY | 2023-09-06 15:39 | External Medical Summary | Continuity Of Care Document ---
Author Name Unknown Address [address] [place] [address] Organization [facility]) Care Team Providers Care Corn Shucker Name Role Phone Saida Moon Primary Care Provider [phone] Problems Code Description Start Date End Date [...] Active I25.10 Atherosclerotic hear t disease of [place] coronary artery without angina pectoris 03/11/2022 Active [...] Temperature SpO2 Blood Sugar Pulse Respirations 818 73497 3 98.20 Ear 818 75663 2 60.00 mm[Hg] - Sitting 102.00 mm[Hg] - Sitting 98.20 Ear 85.00/ min 829 04634 9 68.00 mm[Hg] - Sitting 108.00 mm[Hg] - Sitting 106.00 NI 99.80 Oral 95.00 % 16.00/min 54783 829 48981 1 58.00 mm[Hg] - Sitting 109.00 mm[Hg] - Sitting 101.20 Ear 92.00 % 65.00/ min 79334 830 28849 2 58.00 mm[Hg] - Sitting 109.00 mm[Hg] - Sitting 101.20 Ear 65.00/ min 18.00/min 18487 830 20678 0 99.10 Oral 830 52467 3 55.00 mm[Hg] - Sitting 110.00 mm[Hg] - Sitting 99.50 Ear 93.00 % 80.00/ min 830 25201 6 107.00 NI 16995 830 92644 4 53.00 mm[Hg] - Sitting 127.00 mm[Hg] - Sitting 99.30 Ear 94.00 % 66.00/ min 11607 830 07513 6 99.30 Ear 46393 830 12768 6 53.00 mm[Hg] - Sitting 127.00 mm[Hg] - Sitting 99.30 Oral 66.00/ min 18.00/min 14952 831 58247 2 46976 831 52670 6 98.50 Ear 85312 831 40513 8 53.00 mm[Hg] - Sitting 153.00 mm[Hg] - Sitting 100.20 Ear 91.00 % 65.00/ min 15690 831 08085 5 100.20 Ear 88542 831 84858 1 90445 831 03941 0 96.60 Ear 10299 831 78794 5 53.00 mm[Hg] - Sitting 153.00 mm[Hg] - Sitting 100.20 Oral 65.00/ min 18.00/min 05950 831 14790 0 65918 901 12612 4 97.20 Ear 50520 901 96341 6 62.00 mm[Hg] - Sitting 141.00 mm[Hg] - Sitting 97.60 Ear 94.00 % 67.00/ min 49759 901 48642 3 97.90 Ear 16002 901 50652 0 67.00 mm[Hg] - Lying Down 125.00 mm[Hg] - Lying Down 98.60 Ear 94.00 % 65.00/ min 83106 901 04277 0 98.60 Ear 62040 902 37035 0 97.60 Ear 98423 902 84401 3 66.00 mm[Hg] - Sitting 130.00 mm[Hg] - Sitting 97.40 Ear 93.00 % 65.00/ min 41218 902 66264 2 97.40 Ear 63243 902 33153 0 98.10 Ear 14569 902 03573 3 55.00 mm[Hg] - Sitting 95.00 mm[Hg] - Sitting 97.40 Ear 93.00 % 88.00/ min 82781 903 09334 8 97.10 Ear 24099 903 09881 1 68.00 mm[Hg] - Sitting 116.00 mm[Hg] - Sitting 97.90 Ear 97.00 % 65.00/ min 04812 903 95116 2 97.90 Ear 20934 903 61935 2 68.00 mm[Hg] - Sitting 116.00 mm[Hg] - Sitting 97.90 Ear 97.00 % 65.00/ min 88041 903 16149 0 97.70 Ear 08428 904 22396 5 97.20 Ear 93838 904 77952 1 72.00 mm[Hg] - Sitting 139.00 mm[Hg] - Sitting 97.70 Ear 97.00 % 65.00/ min 12393 904 11402 3 97.30 Oral 41260 904 43144 7 66.00 mm[Hg] - Sitting 116.00 mm[Hg] - Sitting 97.30 Oral 96.00 % 65.00/ min 73475 904 49167 4 75.00 mm[Hg] - Sitting 122.00 mm[Hg] - Sitting 98.50 Oral 95.00 % 86.00/ min 67619 905 86338 9 98.60 Oral 49585 905 31414 0 108.00 NI 83316 905 29612 8 53.00 mm[Hg] - Sitting 146.00 mm[Hg] - Sitting 97.60 Ear 72.00/ min 92699 905 40411 8 53.00 mm[Hg] - Sitting 146.00 mm[Hg] - Sitting 97.60 Ear 95.00 % 72.00/ min 97869 905 69859 8 97.80 Ear 83940 906 39417 9 98.10 Ear 61397 906 49800 5 97.60 Ear 85286 906 39869 0 70.00 mm[Hg] - Sitting 150.00 mm[Hg] - Sitting 96.90 Ear 94.00 % 72.00/ min 74756 906 75294 9 96.90 Ear 20431 906 31829 0 74.00 mm[Hg] - Sitting 117.00 mm[Hg] - Sitting 98.30 Ear 94.00 % 83.00/ min 05610 907 31570 0 97.80 Ear 76526 907 60934 0 69.00 mm[Hg] - Sitting 113.00 mm[Hg] - Sitting 97.20 Ear 91.00 % 84.00/ min 47243 907 10718 6 97.20 Ear 97636 908 30156 6 66.00 mm[Hg] - Sitting 146.00 mm[Hg] - Sitting 97.70 Ear 96.00 % 68.00/ min 58581 908 23002 3 97.70 Oral Immunizations Vaccine Date Status COVID-19 12/16/2020 Completed COVID-19 01/06/2021 Completed COVID-19 10/02/2021 Completed COVID-19 04/02/2022 Completed COVID-19 07/30/2022 Completed Influenza 08/20/2021 Completed Influenza 08/09/2022 Completed (PCV13)Pneumococcal 02/05/2016 Completed (PPSV23)Pneumococcal 03/24/2022 Resident Re fused
--- OUTSIDE RECORDS SUMMARY | 2023-09-06 15:39 | External Medical Summary | Continuity Of Care Document ---
Author Name Unknown Address [address] [place] [address] Organization [facility]) Care Team Providers Care Product Support Technician Name Role Phone Saida Moon Primary Care Provider [phone] Problems Code Description Start Date End Date [...] Active I25.10 Atherosclerotic hear t disease of [place] coronary artery without angina pectoris 03/11/2022 Active [...] Temperature SpO2 Blood Sugar Pulse Respirations 818 91356 3 98.20 Ear 818 97280 2 60.00 mm[Hg] - Sitting 102.00 mm[Hg] - Sitting 98.20 Ear 85.00/ min 829 64380 9 68.00 mm[Hg] - Sitting 108.00 mm[Hg] - Sitting 106.00 NI 99.80 Oral 95.00 % 16.00/min 48521 829 68493 1 58.00 mm[Hg] - Sitting 109.00 mm[Hg] - Sitting 101.20 Ear 92.00 % 65.00/ min 53945 830 92336 2 58.00 mm[Hg] - Sitting 109.00 mm[Hg] - Sitting 101.20 Ear 65.00/ min 18.00/min 47347 830 14408 0 99.10 Oral 830 37673 3 55.00 mm[Hg] - Sitting 110.00 mm[Hg] - Sitting 99.50 Ear 93.00 % 80.00/ min 830 24160 6 107.00 NI 21586 830 95595 4 53.00 mm[Hg] - Sitting 127.00 mm[Hg] - Sitting 99.30 Ear 94.00 % 66.00/ min 25976 830 57258 6 99.30 Ear 40760 830 41060 6 53.00 mm[Hg] - Sitting 127.00 mm[Hg] - Sitting 99.30 Oral 66.00/ min 18.00/min 79952 831 28712 2 28618 831 64438 6 98.50 Ear 83835 831 04500 8 53.00 mm[Hg] - Sitting 153.00 mm[Hg] - Sitting 100.20 Ear 91.00 % 65.00/ min 50120 831 75829 5 100.20 Ear 24609 831 81589 1 16214 831 08332 0 96.60 Ear 64453 831 35894 5 53.00 mm[Hg] - Sitting 153.00 mm[Hg] - Sitting 100.20 Oral 65.00/ min 18.00/min 49388 831 89241 0 19044 901 79956 4 97.20 Ear 45801 901 25589 6 62.00 mm[Hg] - Sitting 141.00 mm[Hg] - Sitting 97.60 Ear 94.00 % 67.00/ min 01828 901 28691 3 97.90 Ear 08816 901 73776 0 67.00 mm[Hg] - Lying Down 125.00 mm[Hg] - Lying Down 98.60 Ear 94.00 % 65.00/ min 37680 901 58475 0 98.60 Ear 82622 902 32453 0 97.60 Ear 42497 902 46144 3 66.00 mm[Hg] - Sitting 130.00 mm[Hg] - Sitting 97.40 Ear 93.00 % 65.00/ min 67406 902 51120 2 97.40 Ear 92428 902 26920 0 98.10 Ear 99648 902 16805 3 55.00 mm[Hg] - Sitting 95.00 mm[Hg] - Sitting 97.40 Ear 93.00 % 88.00/ min 83036 903 93195 8 97.10 Ear 61292 903 67268 1 68.00 mm[Hg] - Sitting 116.00 mm[Hg] - Sitting 97.90 Ear 97.00 % 65.00/ min 40954 903 65266 2 97.90 Ear 43843 903 16482 2 68.00 mm[Hg] - Sitting 116.00 mm[Hg] - Sitting 97.90 Ear 97.00 % 65.00/ min 73527 903 89142 0 97.70 Ear 21930 904 32439 5 97.20 Ear 43659 904 36888 1 72.00 mm[Hg] - Sitting 139.00 mm[Hg] - Sitting 97.70 Ear 97.00 % 65.00/ min 83544 904 56657 3 97.30 Oral 72154 904 61342 7 66.00 mm[Hg] - Sitting 116.00 mm[Hg] - Sitting 97.30 Oral 96.00 % 65.00/ min 84446 904 40236 4 75.00 mm[Hg] - Sitting 122.00 mm[Hg] - Sitting 98.50 Oral 95.00 % 86.00/ min 08348 905 66065 9 98.60 Oral Immunizations Vaccine Date Status COVID-19 12/16/2020 Completed COVID-19 01/06/2021 Completed COVID-19 10/02/2021 Completed COVID-19 04/02/2022 Completed COVID-19 07/30/2022 Completed Influenza 08/20/2021 Completed Influenza 08/09/2022 Completed (PCV13)Pneumococcal 02/05/2016 Completed (PPSV23)Pneumococcal 03/24/2022 Resident Re fused
--- OUTSIDE RECORDS SUMMARY | 2023-09-06 15:39 | External Medical Summary | Continuity Of Care Document ---
Author Name Unknown Address [address] [place] [address] Organization [facility]) Care Team Providers Care Visual Basic Programmer Name Role Phone Saida Moon Primary Care Provider [phone] Problems Code Description Start Date End Date [...] Active I25.10 Atherosclerotic hear t disease of [place] coronary artery without angina pectoris 03/11/2022 Active [...] Temperature SpO2 Blood Sugar Pulse Respirations 818 56182 3 98.20 Ear 818 79607 2 60.00 mm[Hg] - Sitting 102.00 mm[Hg] - Sitting 98.20 Ear 85.00/ min 829 76240 9 68.00 mm[Hg] - Sitting 108.00 mm[Hg] - Sitting 106.00 NI 99.80 Oral 95.00 % 16.00/min 829 49715 1 58.00 mm[Hg] - Sitting 109.00 mm[Hg] - Sitting 101.20 Ear 92.00 % 65.00/ min 830 28739 2 58.00 mm[Hg] - Sitting 109.00 mm[Hg] - Sitting 101.20 Ear 65.00/ min 18.00/min 64548 830 55352 0 99.10 Oral 85816 830 44030 3 55.00 mm[Hg] - Sitting 110.00 mm[Hg] - Sitting 99.50 Ear 93.00 % 80.00/ min 33634 830 38988 6 107.00 NI 10015 830 20643 4 53.00 mm[Hg] - Sitting 127.00 mm[Hg] - Sitting 99.30 Ear 94.00 % 66.00/ min 26365 830 80730 6 99.30 Ear 61466 830 92813 6 53.00 mm[Hg] - Sitting 127.00 mm[Hg] - Sitting 99.30 Oral 66.00/ min 18.00/min 49480 831 00709 2 41070 831 06656 6 98.50 Ear 94786 831 29708 8 53.00 mm[Hg] - Sitting 153.00 mm[Hg] - Sitting 100.20 Ear 91.00 % 65.00/ min 99780 831 23136 5 100.20 Ear 90601 831 12054 1 87777 831 70707 0 96.60 Ear 32757 831 48340 5 53.00 mm[Hg] - Sitting 153.00 mm[Hg] - Sitting 100.20 Oral 65.00/ min 18.00/min 15259 831 91411 0 33062 901 18663 4 97.20 Ear 57035 901 96866 6 62.00 mm[Hg] - Sitting 141.00 mm[Hg] - Sitting 97.60 Ear 94.00 % 67.00/ min 65064 901 63792 3 97.90 Ear 15522 901 40062 0 67.00 mm[Hg] - Lying Down 125.00 mm[Hg] - Lying Down 98.60 Ear 94.00 % 65.00/ min 83321 901 80826 0 98.60 Ear 60992 902 76583 0 97.60 Ear 62907 902 52665 3 66.00 mm[Hg] - Sitting 130.00 mm[Hg] - Sitting 97.40 Ear 93.00 % 65.00/ min 63101 902 84286 2 97.40 Ear 77166 902 33494 0 98.10 Ear 51695 902 26858 3 55.00 mm[Hg] - Sitting 95.00 mm[Hg] - Sitting 97.40 Ear 93.00 % 88.00/ min 19170 903 06166 8 97.10 Ear 72353 903 98717 1 68.00 mm[Hg] - Sitting 116.00 mm[Hg] - Sitting 97.90 Ear 97.00 % 65.00/ min 26069 903 06106 2 97.90 Ear 56930 903 55650 2 68.00 mm[Hg] - Sitting 116.00 mm[Hg] - Sitting 97.90 Ear 97.00 % 65.00/ min 24903 903 84532 0 97.70 Ear 47546 904 34588 5 97.20 Ear 92289 904 79531 1 72.00 mm[Hg] - Sitting 139.00 mm[Hg] - Sitting 97.70 Ear 97.00 % 65.00/ min 95326 904 93792 3 97.30 Oral 98624 904 07888 7 66.00 mm[Hg] - Sitting 116.00 mm[Hg] - Sitting 97.30 Oral 96.00 % 65.00/ min 79823 904 07677 4 75.00 mm[Hg] - Sitting 122.00 mm[Hg] - Sitting 98.50 Oral 95.00 % 86.00/ min 22657 905 58214 9 98.60 Oral 78007 905 20156 0 108.00 NI 43886 905 25966 8 53.00 mm[Hg] - Sitting 146.00 mm[Hg] - Sitting 97.60 Ear 72.00/ min 50809 905 11033 8 53.00 mm[Hg] - Sitting 146.00 mm[Hg] - Sitting 97.60 Ear 95.00 % 72.00/ min 38072 905 43746 8 97.80 Ear 13982 906 13909 9 98.10 Ear 53647 906 20211 5 97.60 Ear 86206 906 80729 0 70.00 mm[Hg] - Sitting 150.00 mm[Hg] - Sitting 96.90 Ear 94.00 % 72.00/ min 57997 906 04269 9 96.90 Ear 91070 906 23839 0 74.00 mm[Hg] - Sitting 117.00 mm[Hg] - Sitting 98.30 Ear 94.00 % 83.00/ min 94606 907 96319 0 97.80 Ear 84939 907 00492 0 69.00 mm[Hg] - Sitting 113.00 mm[Hg] - Sitting 97.20 Ear 91.00 % 84.00/ min 52879 907 04277 6 97.20 Ear 59050 908 36473 6 66.00 mm[Hg] - Sitting 146.00 mm[Hg] - Sitting 97.70 Ear 96.00 % 68.00/ min 92969 908 58229 3 97.70 Oral 17371 908 05545 0 75.00 mm[Hg] - Sitting 129.00 mm[Hg] - Sitting 97.70 Ear 97.00 % 83.00/ min 87429 908 63317 4 97.40 Ear 30212 908 18054 9 97.50 Ear 23794 908 32488 0 75.00 mm[Hg] - Sitting 115.00 mm[Hg] - Sitting 97.50 Ear 93.00 % 86.00/ min 04521 909 76461 0 97.80 Ear 26859 909 91845 0 68.00 mm[Hg] - Sitting 119.00 mm[Hg] - Sitting 97.80 Oral 93.00 % 82.00/ min 21728 909 07798 0 66.00 mm[Hg] - Sitting 117.00 mm[Hg] - Sitting 97.40 Ear 96.00 % 80.00/ min 88630 910 11685 2 97.40 Oral 92.00 % 86914 910 24901 8 58.00 mm[Hg] - Sitting 134.00 mm[Hg] - Sitting 98.00 Ear 91.00 % 66.00/ min 37435 911 99142 8 65.00 mm[Hg] - Sitting 166.00 mm[Hg] - Sitting 97.00 Ear 91.00 % 65.00/ min 9120290 0 82.00 mm[Hg] - Lying Down 143.00 mm[Hg] - Lying Down 97.60 Ear 97.00 % 65.00/ min 91 08623 7 Immunizations Vaccine Date Status COVID-19 12/16/2020 Completed COVID-19 01/06/2021 Completed COVID-19 10/02/2021 Completed COVID-19 04/02/2022 Completed COVID-19 07/30/2022 Completed Influenza 08/20/2021 Completed Influenza 08/09/2022 Completed (PCV13)Pneumococcal 02/05/2016 Completed (PPSV23)Pneumococcal 03/24/2022 Resident Re fused
--- OUTSIDE RECORDS SUMMARY | 2023-09-06 15:39 | External Medical Summary | Continuity Of Care Document ---
Author Name Unknown Address [address] [place] [address] Organization [facility] ( ) Care Team Providers Care Key Maker Name Role Phone Saida Moon Primary Care Provider [phone] Problems Code Description Start Date End Date [...] Active I25.10 Atherosclerotic hear t disease of [place] coronary artery without angina pectoris 03/11/2022 Active [...] weight Temperature SpO2 Blood Sugar Pulse Respirations 719 23178 0 110.00 NI 07845 724 55867 8 112.00 NI 801 48651 5 110.00 NI 97.60 Ear 801 31251 3 70.00 mm[Hg] - Sitting 132.00 mm[Hg] - Sitting Immunizations Vaccine Date Status COVID-19 12/16/2020 Completed COVID-19 01/06/2021 Completed COVID-19 10/02/2021 Completed COVID-19 04/02/2022 Completed COVID-19 07/30/2022 Completed Influenza 08/20/2021 Completed Influenza 08/09/2022 Completed (PCV13)Pneumococcal 02/05/2016 Completed (PPSV23)Pneumococcal 03/24/2022 Resident Re fused
[2023-09-06] MEDS ORDERED: GLUCAGON FOR INJ 1 MG VIAL SQ PRN (15:55)
[2023-09-06] MEDS ORDERED: CARBOHYDRATES FOR HYPOGLYCEMIA PO PRN (15:55)
[2023-09-06] MEDS ORDERED: GLUCOSE 40% GEL 15 GM TUBE PO PRN (15:55)
[2023-09-06] MEDS ORDERED: DEXTROSE 50% 50 ML SYRINGE IV PRN (15:55)
[2023-09-06] MEDS ORDERED: GLUCOSE 10 TAB/TUBE PO PRN (15:55)
[2023-09-06] MEDS: CLINDAMYCIN/D5W 600 MG/50 ML BAG IV SCH (17:28)
--- NOTE | 2023-09-06 18:54 | Oral/Maxillofacial Consult ---
Date of Consultation September 06, 2023 Assessment & Plan (1) Nasal fracture: History of Present Illness Attending Physician: Indu Ortiz DO History of Present Illness This is an 88-year-old female who has a significant past medical history of Alzheimer's dementia, CAD with history of CABG, HTN, HLD, PAF, T2DM, hypothyroidism, cardiac pacemaker in situ, GERD, history of GI bleed and anxiety who presents to ER after sustaining a fall at nursing facility. Outside records from nursing, reviewed. Per note patient had a witnessed fall by roommate in which she was sitting in her recliner chair and fell forward to the floor hitting her face. She was facedown on the floor and noted to have significant hematoma to left forehead and significant right-sided epistaxis and nasal bone swelling. She was very lethargic after the fall. Her vital signs were stable. They sent her to ER for further evaluation. In ER head CT was negative for any acute intracranial hemorrhage or skull fract ure. Right nasal fracture with associated soft tissue swelling. I evaluated the CT scan and did a bedside exam. My findings are as follows: No nasal bleeding. A non displaced right nasal fracture right nasal bones. Clinically there is mild swelling of the nose and middle of the forehead--ecchymosis Expect that tomorrow she will have more ecchymosis and possible swelling of her left eye--this is expected. If tolerated Ice to the nose/forehead with head slightly elevated would be helpful. Can stop Antibiotics after 24 hours Summery: This is an insignificant fracture and will not require any intervention,swelling /ecchymosis will resolve in 5-7 days. No treatment needed regarding Nose or Hematoma. May be D/C as per medicine protocol CT facial bones wo con CLINICAL HISTORY: r/o nasal bone fx FINDINGS: Exam is highly limited by patient motion. There is a likely nondisplaced fracture of the right nasal bone. Soft tissue swelling is seen about the nose. The mandible is intact. The temporomandibular joints are anatomically aligned. Pterygoid plates are intact. Zygomatic arches are intact. The globes are normal and symmetric, without proptosis, obvious disruption or lens dislocation. Senile calcific scleral plaques are noted. The orbital malik are intact. The retrobulbar fat is without evidence of disruption. Extraocular muscles are normal and symmetric. Optic nerve sheath complexes are normal in course and caliber. Soft tissue swelling is seen in the midline frontal region. Imaged portions of the paranasal sinuses and mastoid air cells are clear. IMPRESSION: Right nasal fracture with associated soft tissue swelling. Right nondisplaced fracture of the right nasal bone Allergies Allergy/AdvReac Type Severity Reaction Status Date / Time Iodinated Contrast Media Allergy Severe Hives Verified 09/06/23 13:45 Penicillins Allergy Intermediate HIVES Verified 09/06/23 13:45 Home Medications Medication Instructions Recorded Confirmed Type propafenone 150 mg tablet 150 mg PO Q8H #90 tabs 12/23/21 09/06/23 Rx levothyroxine 50 mcg tablet 50 mcg PO DAILYBB 01/16/22 09/06/23 History metoprolol tartrate 25 mg tablet 12.5 mg PO AMHS 03/10/22 09/06/23 History sennosides 8.6 mg-docusate sodium 1 tab-cap PO AMPM 03/10/22 09/06/23 History 50 mg capsule (Senna Plus) acetaminophen 650 mg rectal 650 mg NE Q4H PRN Fever Or Pain 04/30/22 09/06/23 History suppository magnesium hydroxide 400 mg/5 mL 2,400 mg PO .DAILY UD PRN 04/30/22 09/06/23 History oral suspension (Milk of Magnesia) Constipation acetaminophen 325 mg tablet 650 mg PO Q4 PRN Fever Or Pain 06/12/23 09/06/23 History (Tylenol) amlodipine 5 mg tablet 5 mg PO DAILY 06/12/23 09/06/23 History diclofenac sodium 1 % topical gel 2 g topical BID 8 grams 06/12/23 09/06/23 History food supplemt, lactose-reduced 1 ea PO BID 06/12/23 09/06/23 History melatonin 10 mg tablet 10 mg PO HS 06/12/23 09/06/23 History pantoprazole 20 mg tablet,delayed 20 mg PO AMHS 06/12/23 09/06/23 History release Theracalazinc Ointment See Rx Instructions .Route .COMPLEX 09/06/23 09/06/23 History bisacodyl 10 mg rectal suppository 10 mg NE DAILY PRN Constipation 09/06/23 09/06/23 History (Dulcolax (bisacodyl)) dextromethorphan-guaifenesin 10 10 ml PO Q4H PRN Cough 09/06/23 09/06/23 History mg-100 mg/5 mL oral syrup (Siltussin-DM) escitalopram oxalate 5 mg tablet 5 mg PO DAILY 09/06/23 09/06/23 History gabapentin 100 mg capsule 100 mg PO DAILY 09/06/23 09/06/23 History ipratropium 0.5 mg-albuterol 3 mg 3 ml inhalation Q4H PRN cough/SOB 09/06/23 09/06/23 History (2.5 mg base)/3 mL nebulization soln ondansetron HCl 4 mg tablet 4 mg PO Q6H PRN Nausea And Vomiting 09/06/23 09/06/23 History sodium phosphates 19 gram-7 118 ml NE DAILY PRN Constipation 09/06/23 09/06/23 History gram/118 mL enema (Fleet Enema) Patient History Medical History Osteoarthritis CKD (chronic kidney disease), stage III Acute UTI (urinary tract infection) Fall Dementia Recurrent falls DVT prophylaxis CKD (chronic kidney disease) Aortic stenosis, severe Urinary incontinence Mild cognitive impairment History of pneumonia Acute GI bleeding Anticoagulant long-term use H/O non-ST elevation myocardial infarction (NSTEMI) Chronic diastolic congestive heart failure Anemia Anxiety CVA (cerebral vascular accident) Dyslipidemia Essential hypertension GERD without esophagitis Hypothyroidism Paroxysmal atrial fibrillation Type 2 diabetes mellitus TIA (transient ischemic attack) CAD (coronary artery disease) Surgical History Status post carotid surgery L CEA History of hysterectomy S/P lumpectomy of breast S/P cardiac pacemaker procedure Status post cholecystectomy Hx of CABG Family History Family/Other No problems noted. Brother Cardiac disorder Stroke Hypertension Lung disease Mother Stroke Father Stroke Sister Lung cancer Malignant neoplasm of urinary bladder Denies family history of Colon cancer Ovarian cancer Prostate cancer Myocardial infarction Breast cancer Social History Smoking Status: Never smoker Age Started Using Tobacco: 17; Age Quit Using Tobacco: 29; packs per day: 0.5; Second Hand Exposure: No; Do You Dip or Chew Tobacco: No; Hx Alcohol Use: No Hx Substance Use: No Preferred Language: Tajik Communication Ability: Impaired Communication Ability Comment: hard of hearing Visual Impairment: Limited Hearing Ability: Use of Hearing Aid Electrical [employer] Required: No Beliefs That Will Affect Care: None marital status: / Current Living Situation: Personal Care Facility Current Living Situation Comment: [facility] current occupational status: retired How many Children do You have: 2 Feels Safe at Home: Yes Childhood Exposure to Second-Hand Smoke: Yes Diet: regular caffeine: Yes during the past year weight has: remained stable Dental Care, Regularly: Yes Physical Activity Frequency: Other Physical Activity Frequency Comment: limited by phusical condition Seatbelt Use: always Sunscreen Use: No Assistive Devices: Walker and Wheelchair Results & Data Vital Signs (Past 12 Hours) Vital Signs Temp Pulse Pulse Resp BP BP Pulse Ox 09/06/23 16:05 101 H 20 111/73 98 09/06/23 15:27 98 H 20 95 09/06/23 15:14 82 09/06/23 15:00 96 H 20 104/68 92 09/06/23 13:30 97 H 24 112/68 99 09/06/23 11:15 89 09/06/23 10:58 36.4 C L 96 H 20 129/78 91 O2 Del Method O2 Flow Rate 09/06/23 16:05 Nasal Cannula 2 09/06/23 15:27 Nasal Cannula 09/06/23 15:14 09/06/23 15:00 Nasal Cannula 2 09/06/23 13:30 Nasal Cannula 2 09/06/23 11:15 09/06/23 10:58 Room Air PG Care Time/CCT Total # of Minutes Spent Total Time Spent with Patient: Total time spent is greater than 50% in coordination of care (as documented) at patient's floor/unit and/or counseling patient: Coding Level of Care Code 15217 OP VST NEW 15-29 MIN Diagnoses Nasal fracture S02.2XXA
[2023-09-06] MEDS: PROPAFENONE HCL 150 MG TABLET PO SCH ×2 (21:26→23:42)
--- NOTE | 2023-09-06 22:08 | CT Scan Report ---
Exam(s): CT HEAD Without Contrast EXAM: CT Head Without Intravenous Contrast CLINICAL HISTORY: Reason for exam: repeat. TECHNIQUE: Axial computed tomography images of the head/brain without intravenous contrast. CTDI is 37.22 mGy and DLP is 546.36 mGy-cm. Automated exposure control was utilized for the study. A dose lowering technique was utilized adhering to the principles of ALARA. COMPARISON: CT head 09/06/2023. FINDINGS: Artifacts: Exam is degraded by patient motion. Brain: Global parenchymal volume loss with chronic microvascular ischemic changes and chronic right frontal lobe infarction. No hemorrhage. Ventricles: Prominence of the ventricles related to volume loss. Bones/joints: Unremarkable. No acute fracture. Soft tissues: Left frontal scalp hematoma. Sinuses: Unremarkable as visualized. Mastoid air cells: Unremarkable as visualized. No mastoid effusion. IMPRESSION: 1. Exam is degraded by patient motion. 2. No intracranial hemorrhage is seen. 3. Left frontal scalp hematoma. 4. Global parenchymal volume loss with chronic microvascular ischemic changes and chronic right frontal lobe infarction. Electronically signed by: Blu Camara MD 09/06/23 22:07 PM
[2023-09-06] MEDS: DOCUSATE SODIUM/SENNA 50/8.6MG TAB PO SCH (22:25)
[2023-09-06] MEDS: METOPROLOL TARTRATE 25 MG TAB PO SCH (22:25)
[2023-09-06] MEDS: PANTOprazole 40 MG TAB PO SCH (22:26)
[2023-09-06] MEDS ORDERED: OLANZapine 10 MG/2.1 ML SDV IM PRN (23:00)
--- OUTSIDE RECORDS SUMMARY | 2023-09-06 23:32 | External Medical Summary | Continuity Of Care Document ---
Author Name Unknown Address [address] [place] [address] Organization [facility]) Care Team Providers Care Enrollment Consultant Name Role Phone Saida Moon Primary Care Provider [phone] Problems Code Description Start Date End Date [...] Active I25.10 Atherosclerotic hear t disease of [place] coronary artery without angina pectoris 03/11/2022 Active [...] weight Temperature SpO2 Blood Sugar Pulse Respirations 023 67160 3 107.00 NI 107 92185 3 105.00 NI 107 19560 8 71.00 mm[Hg] - Sitting 129.00 mm[Hg] - Sitting 97.20 Ear 96.00/ min Immunizations Vaccine Date Status COVID-19 12/16/2020 Completed COVID-19 01/06/2021 Completed COVID-19 10/02/2021 Completed COVID-19 04/02/2022 Completed COVID-19 07/30/2022 Completed Influenza 08/20/2021 Completed Influenza 08/09/2022 Completed Influenza 08/04/2023 Completed (PCV13)Pneumococcal 02/05/2016 Completed (PPSV23)Pneumococcal 03/24/2022 Resident Re fused (PCV20)Pneumococcal 07/07/2023 Family Refus ed
[2023-09-06] MEDS: INSULIN ASPART PER UNIT CHARGE SC SCH ×2 (23:39→23:40)
[2023-09-06] MEDS: LANTUS PER UNIT CHARGE SQ SCH (23:41)
[2023-09-06 23:46] LABS: Appearance Urine Cloudy (Clear); Bacteria Urine Automated 1+ (Negative); Bilirubin Urine Negative (Negative); Blood Urine 1+ (Negative); Color Urine Yellow; Epithelial Cell Urine Auto 20-30 /lpf (0-5); Glucose Urine UA Negative (Negative); Ketones Urine Negative (Negative); Leukocyte Esterase Urine 3+ (Negative); Nitrite Urine Negative (Negative); Protein Urine Negative (Negative); RBC Urine Automated 0-4 /hpf (0-4); Specific Gravity Urine 1.007 (1.000-1.030); Urobilinogen Urine Negative (Negative); WBC Urine Automated >30 /hpf (0-5)
[2023-09-07] MEDS: CLINDAMYCIN/D5W 600 MG/50 ML BAG IV SCH ×2 (00:35→08:10)
[2023-09-07 00:38] LABS: Amphetamines+Metham, Urine Neg (Neg); Barbiturates, Urine Neg (Neg); Benzodiazepine, Urine Neg (Neg); Cocaine, Urine Neg (Neg); MDMA (Ecstacy), Urine Neg (Neg); Marijuana, Urine Neg (Neg); Methadone, Urine Neg (Neg); Opiate, Urine Neg (Neg); Phencyclidine, Urine Neg (Neg)
[2023-09-07] MEDS: PROPAFENONE HCL 150 MG TABLET PO SCH ×3 (05:54→20:28)
[2023-09-07] MEDS: LEVOTHYROXINE SODIUM 50 MCG TABLET PO SCH (05:55)
[2023-09-07] MEDS: DOCUSATE SODIUM/SENNA 50/8.6MG TAB PO SCH ×2 (08:10→20:26)
[2023-09-07] MEDS: FUROSEMIDE INJ 20 MG/2 ML VIAL IV SCH (08:10)
[2023-09-07] MEDS: ACETAMINOPHEN 325 MG TAB PO PRN ×2 (08:10→20:26)
[2023-09-07] MEDS: METOPROLOL TARTRATE 25 MG TAB PO SCH ×2 (08:11→20:27)
[2023-09-07] MEDS: PANTOprazole 40 MG TAB PO SCH ×2 (08:11→20:28)
[2023-09-07] MEDS: ESCITALOPRAM OXALATE 10 MG TAB PO SCH (08:11)
[2023-09-07] MEDS: LANTUS PER UNIT CHARGE SQ SCH ×2 (09:35→20:34)
[2023-09-07] MEDS: INSULIN ASPART PER UNIT CHARGE SC SCH ×4 (09:36→20:27)
--- NOTE | 2023-09-07 09:55 | Cardiology Consultation ---
Date of Consultation September 07, 2023 Assessment & Plan (1) Acute on chronic heart failure with preserved ejection fraction (HFpEF): Mrs. 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 This fall was witnessed by her roommate, and the patient was sitting in a chair fell forward striking her head and face on the floor. Patient was very lethargic after the fall. Her vital signs were stable. They sent her to ER for further evaluation. In the ER, Head CT was negative for any acute intracranial hemorrhage or skull fracture. Scalp swelling was noted in the midline frontal soft tissues. C-spine CT revealed degenerative changes w ithout evidence of acute bony injury. Chest x-ray revealed cardiomegaly and cardiac pacemaker with evidence of congestive failure. Bilateral airspace opacities likely represent pulmonary edema vs superimposed infectious/inflammatory pneumonitis. Layering pleural effusions with dependent consolidations noted. Additionally the patient was noted to have an elevated BNP level of 2417 pg/mL. High sensitivity troponin I is normal at 11.7 pg/mL. Patient was started on IV Lasix 20 mg daily and thus far has a negative fluid balance of 450 mL. Patient does admit to having increased shortness of breath and dyspnea on exertion recently but she does not recall when this started. She has not experienced any angina pectoris nor does she have any symptoms directly attributable to her atrial fibrillation. She denies any syncope or loss of consciousness contributing to her fall. Patient has a known history of paroxysmal atrial fibrillation and she is currently in atrial fibrillation -- but she is not a candidate for anticoagulation due to her fall risk. Patient has evidence of heart failure on physical examination today. Goal would be to diurese her at approximately 9443-9760 mL/24 hours while closely monitoring renal function. Recommend the followin. Increase IV Lasix to 40 mg daily. 2. Continue Metoprolol Tartrate 12.5 mg b.i.d. 3. Monitor I&O's and daily body weights. 4. Consider low dose IV Diltiazem drip for rate control. 5. Daily BMP +/- serum Mg level. 6. Strict 2 g low sodium diet. (2) Aortic stenosis, severe: Her last Echocardiogram 01/2021 revealed an LVEF 50%, enlargement of left atrium, LVH, moderately severe to severe aortic stenosis, moderately severe mitral valve insufficiency, moderate to severe tricuspid insufficiency, moderate pulmonic valvular insufficiency, and moderate pulmonary hypertension. Patient refused evaluation for TAVR in the past and continues to refuse. Echocardiogram has been ordered by the hospitalist team. (3) CAD (coronary artery disease): (4) Hx of CABG: CAD s/p CABG x 3 Vessels 1984, Re-do CABG x 3 Vessels 1999, Multiple Intracoronary Stents. -- She has an unremarkable high sensitivity troponin I and has not had any angina pectoris. -- Continue usual cardiac regimen. (5) Paroxysmal atrial fibrillation: 1. Continue Metoprolol Tartrate 12.5 mg b.i.d. -- titrate dose if BP allows. 2. Continue Propafenone 150 mg every 8 hours. 3. She is not a candidate for anticoagulation due to her fall risk. 4. Consider adding IV Diltiazem drip for better rate control provided her LV systolic function is still normal. Thank you for asking us to see this patient in consultation. We will continue to follow along while hospitalized and following discharge. History of Present Illness Reason for Consultation: 1. CHF Requesting Physician: Jewel Mead MD Attending Physician: Juanito Coleman MD History of Present Illness Mrs. 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 This fall was witnessed by her roommate, and the patient was sitting in a chair fell forward striking her head and face on the floor. Patient was very lethargic after the fall. Her vital signs were stable. They sent her to ER for further evaluation. In the ER, Head CT was negative for any acute intracranial hemorrhage or skull fracture. Scalp swelling was noted in the midline frontal soft tissues. C-spine CT revealed degenerative changes without evidence of acute bony injury. Chest x-ray revealed cardiomegaly and cardiac pacemaker with evidence of congestive failure. Bilateral airspace opacities likely represent pulmonary edema versus superimposed infectious /inflammatory pneumonitis. Layering pleural effusions with dependent consolidations noted. Additionally the patient was noted to have an elevated BNP level of 2417 pg/mL. High sensitivity troponin I is normal at 11.7 pg/mL. Patient was started on IV Lasix 20 mg daily and thus far has a negative fluid balance of 450 mL. Patient does admit to having increased shortness of breath and dyspnea on exertion recently but she does not recall when this started. Due to her dementia she is not a good historian. She denies any chest pain or heaviness. She denies any syncope or loss of consciousness. Patient has a known history of paroxysmal atrial fibrillation but she is not a candidate for anticoagulation due to her fall risk. Past medical and surgical history: 1. Coronary artery disease-see above 2. CABG x 3-1984 3. Redo CABG x 3 Vessels - November 1999 4. Numerous intracoronary stents 5. Hypertension 6. Hypercholesterolemia 7. Paroxysmal atrial fibrillation 8. DDD pacemaker-[employer], 1998, 2005 9. Right common iliac stent-July 2010 10. Left common iliac stent-July 2010 11. Right CVA-December 2017, mild left lower extremity residual 12. Severe aortic stenosis 13. Moderate to severe mitral regurgitation 14. Mild LVH 15. Moderate right carotid stenosis-January 2014 16. Diabetes mellitus 17. Hypothyroidism 18. Migraine headaches 19. Left adrenal cyst 20. Hysterectomy 21. Laparoscopic cholecystectomy 22. Removal of breast fibroids Social History: -- , lives alone -- Family is close by -- No tobacco or alcohol Family History: -- Mother at 93 from old age. -- Father at 78 from renal failure. Allergies Allergy/AdvReac Type Severity Reaction Status Date / Time Iodinated Contrast Media Allergy Severe Hives Verified 09/06/23 13:45 Penicillins Allergy Intermediate HIVES Verified 09/06/23 13:45 Home Medications Medication Instructions Recorded Confirmed Type propafenone 150 mg tablet 150 mg PO Q8H #90 tabs 12/23/21 09/06/23 Rx levothyroxine 50 mcg tablet 50 mcg PO DAILYBB 01/16/22 09/06/23 History metoprolol tartrate 25 mg tablet 12.5 mg PO AMHS 03/10/22 09/06/23 History sennosides 8.6 mg-docusate sodium 1 tab-cap PO AMPM 03/10/22 09/06/23 History 50 mg capsule (Senna Plus) acetaminophen 650 mg rectal 650 mg RI Q4H PRN Fever Or Pain 04/30/22 09/06/23 History suppository magnesium hydroxide 400 mg/5 mL 2,400 mg PO .DAILY UD PRN 04/30/22 09/06/23 History oral suspension (Milk of Magnesia) Constipation acetaminophen 325 mg tablet 650 mg PO Q4 PRN Fever Or Pain 06/12/23 09/06/23 History (Tylenol) amlodipine 5 mg tablet 5 mg PO DAILY 06/12/23 09/06/23 History diclofenac sodium 1 % topical gel 2 g topical BID 8 grams 06/12/23 09/06/23 History food supplemt, lactose-reduced 1 ea PO BID 06/12/23 09/06/23 History melatonin 10 mg tablet 10 mg PO HS 06/12/23 09/06/23 History pantoprazole 20 mg tablet,delayed 20 mg PO AMHS 06/12/23 09/06/23 History release Theracalazinc Ointment See Rx Instructions .Route .COMPLEX 09/06/23 09/06/23 History bisacodyl 10 mg rectal suppository 10 mg RI DAILY PRN Constipation 09/06/23 09/06/23 History (Dulcolax (bisacodyl)) dextromethorphan-guaifenesin 10 10 ml PO Q4H PRN Cough 09/06/23 09/06/23 History mg-100 mg/5 mL oral syrup (Siltussin-DM) escitalopram oxalate 5 mg tablet 5 mg PO DAILY 09/06/23 09/06/23 History gabapentin 100 mg capsule 100 mg PO DAILY 09/06/23 09/06/23 History ipratropium 0.5 mg-albuterol 3 mg 3 ml inhalation Q4H PRN cough/SOB 09/06/23 09/06/23 History (2.5 mg base)/3 mL nebulization soln ondansetron HCl 4 mg tablet 4 mg PO Q6H PRN Nausea And Vomiting 09/06/2308/19 History sodium phosphates 19 gram-7 118 ml RI DAILY PRN Constipation 09/06/23 09/06/23 History gram/118 mL enema (Fleet Enema) Patient History Medical History Osteoarthritis CKD (chronic kidney disease), stage III Acute UTI (urinary tract infection) Fall Dementia Recurrent falls DVT prophylaxis CKD (chronic kidney disease) Aortic stenosis, severe Urinary incontinence Mild cognitive impairment History of pneumonia Acute GI bleeding Anticoagulant long-term use H/O non-ST elevation myocardial infarction (NSTEMI) Chronic diastolic congestive heart failure Anemia Anxiety CVA (cerebral vascular accident) Dyslipidemia Essential hypertension GERD without esophagitis Hypothyroidism Paroxysmal atrial fibrillation Type 2 diabetes mellitus TIA (transient ischemic attack) CAD (coronary artery disease) Surgical History Status post carotid surgery L CEA History of hysterectomy S/P lumpectomy of breast S/P cardiac pacemaker procedure Status post cholecystectomy Hx of CABG Family History Family/Other No problems noted. Brother Cardiac disorder Stroke Hypertension Lung disease Mother Stroke Father Stroke Sister Lung cancer Malignant neoplasm of urinary bladder Denies family history of Colon cancer Ovarian cancer Prostate cancer Myocardial infarction Breast cancer Social History Smoking Status: Never smoker Age Started Using Tobacco: 17; Age Quit Using Tobacco: 29; packs per day: 0.5; Second Hand Exposure: No; Do You Dip or Chew Tobacco: No; Hx Alcohol Use: No Hx Substance Use: No Preferred Language: [place]an Communication Ability: Effective Communication Ability Comment: hard of hearing Visual Impairment: Limited Hearing Ability: Use of Hearing Aid Chiller Operator Required: No Beliefs That Will Affect Care: None marital status: / Current Living Situation: Personal Care Facility Current Living Situation Comment: [facility] current occupational status: retired How many Children do You have: 2 Feels Safe at Home: Yes Childhood Exposure to Second-Hand Smoke: Yes Diet: regular caffeine: Yes during the past year weight has: remained stable Dental Care, Regularly: Yes Physical Activity Frequency: Other Physical Activity Frequency Comment: limited by phusical condition Seatbelt Use: always Sunscreen Use: No Assistive Devices: Oxygen - Continuous and Walker Physical Exam 2 Physical Exam: HR 114 bpm and irregularly irregular. Blood pressure is 123/77. GENERAL: Patient in no acute distress. HEENT: Head is atraumatic, normocephalic. EOM's intact. Facies symmetric. No perioral cyanosis. NECK: No JVD. JVP is elevated. CHEST/LUNGS: Crackles are present in bilateral lower lung bradshaw. No wheezes. CVS: S1 and S2 are irregularly irregular and tachycardic with a grade 2/6 crescendo decrescendo basal systolic murmur heard best over the right 2nd intercostal. There is also a grade 2/6 apical holosystolic murmur. No nicanor stolic murmurs. No gallops or rubs. PMI is laterally displaced. No lifts, heaves, or thrills. No abdominal aortic or renal bruits. Palpable pacemaker generator is present in the left subclavian fossa. ABDOMINAL EXAM: Bowel sounds are present. No masses, organomegaly, or tenderness. EXTREMITIES: No clubbing or cyanosis. No edema. Intact radial pulses bilaterally. NEUROLOGIC EXAM: Patient is alert and interactive. Pleasant and cooperative. Speech is clear. Hard of hearing. CARE PROGRAM RESIDENT: -- A-Fib with V-rates in the 110 to 115 bpm range. Results & Data Vital Signs (Past 12 Hours) Vital Signs Temp Pulse Pulse Pulse Resp BP BP 09/07/23 07:56 36.0 C L 115 H 16 123/77 09/07/23 04:02 36.3 C L 106 H 20 127/85 09/06/23 23:25 63 09/06/23 22:50 09/06/23 22:50 36.4 C L 102 H 20 105/41 L 09/06/23 22:10 96 H 13 09/06/23 22:00 92 H 12 09/06/23 21:50 102 H 32 H Pulse Ox O2 Del Method O2 Flow Rate 09/07/23 07:56 96 Nasal Cannula 2 09/07/23 04:02 97 Nasal Cannula 2 09/06/23 23:25 09/06/23 22:50 Nasal Cannula 2 09/06/23 22:50 97 Nasal Cannula 2 09/06/23 22:10 94 09/06/23 22:00 95 09/06/23 21:50 91 Laboratory Results Laboratory Results - last 24 hr 09/06/23 09/06/23 09/06/23 12:14 13:40 23:09 WBC 7.90 RBC 4.29 Hgb 12.8 Hct 38.7 MCV 90.2 MCH 29.8 MCHC 33.1 RDW Std Deviation 51.8 H RDW Coeff of Charisma 15.7 H Plt Count 252 MPV 11.3 Immature Gran % (Auto) 0.5 Neut % (Auto) 78.3 Lymph % (Auto) 12.7 Kendall % (Auto) 6.2 Eos % (Auto) 1.5 Baso % (Auto) 0.8 Neut # (Auto) 6.19 Lymph # (Auto) 1.00 L Kend[place] # (Auto) 0.49 Eos # (Auto) 0.12 Baso # (Auto) 0.06 Immature Gran # (Auto) 0.04 Sodium 134 L Potassium 4.4 Chloride 104 Carbon Dioxide 22 Anion Gap 8 BUN 26 H Creatinine 0.81 Est Cr Clr Drug Dosing 36.0 Est GFR ( Amer) 74.6 Est GFR (Non-Af Amer) 64.4 BUN/Creatinine Ratio 32.1 H Glucose 263 H POC Glucose 139 H Estimat Average Glucose Pending Hemoglobin A1c Pending Calcium 9.3 Total Bilirubin 0.8 AST 20 ALT 18 Alkaline Phosphatase 84 Troponin I High Sens 11.7 B-Natriuretic Peptide 2417 H Total Protein 6.6 Albumin 3.9 Globulin 2.7 Albumin/Globulin Ratio 1.4 Urine Color Urine Appearance Urine pH Ur Specific [place] Urine Protein Urine Glucose (UA) Urine Ketones Urine Blood Urine Nitrite Urine Bilirubin Urine Urobilinogen Ur Leukocyte Esterase Urine WBC (Auto) Urine RBC (Auto) U Hyaline Cast (Auto) U Epithel Cells (Auto) Urine Bacteria (Auto) Urine Yeast Urine Opiates Screen Ur Methadone, Qual Urine Barbiturates Ur Phencyclidine (PCP) U Amphetamin/Meth Scrn MDMA (Ecstasy) Screen U Benzodiazepines Scrn Ur Cocaine Metabolite U Marijuana (THC) Screen SARS-CoV-2 (PCR) NEGATIVE Influenza Type A (PCR) Negative Influenza Type B (PCR) Negative RSV (RT-PCR) Negative SARS-CoV-2, RNA, NAAT 09/06/23 09/07/23 09/07/23 Unknown 08:09 Unknown WBC RBC Hgb Hct MCV MCH MCHC RDW Std Deviation RDW Coeff of Charisma Plt Count MPV Immature Gran % (Auto) Neut % (Auto) Lymph % (Auto) Kend[place] % (Auto) Eos % (Auto) Baso % (Auto) Neut # (Auto) Lymph # (Auto) Kendall # (Auto) Eos # (Auto) Baso # (Auto) Immature Gran # (Auto) Sodium Potassium Chloride Carbon Dioxide Anion Gap BUN Creatinine Est Cr Clr Drug Dosing Est GFR ( Amer) Est GFR (Non-Af Amer) BUN/Creatinine Ratio Glucose POC Glucose 113 H Estimat Average Glucose Hemoglobin A1c Calcium Total Bilirubin AST ALT Alkaline Phosphatase Troponin I High Sens B-Natriuretic Peptide Total Protein Albumin Globulin Albumin/Globulin Ratio Urine Color Yellow Urine Appearance Cloudy A Urine pH 6.0 Ur Specific [place] 1.007 Urine Protein Negative Urine Glucose (UA) Negative Urine Ketones Negative Urine Blood 1+ H Urine Nitrite Negative Urine Bilirubin Negative Urine Urobilinogen Negative Ur Leukocyte Esterase 3+ H Urine WBC (Auto) >30 H Urine RBC (Auto) 0-4 U Hyaline Cast (Auto) 1-5 U Epithel Cells (Auto) 20-30 H Urine Bacteria (Auto) 1+ H Urine Yeast Not Reportable Urine Opiates Screen Neg Ur Methadone, Qual Neg Urine Barbiturates Neg Ur Phencyclidine (PCP) Neg U Amphetamin/Meth Scrn Neg MDMA (Ecstasy) Screen Neg U Benzodiazepines Scrn Neg Ur Cocaine Metabolite Neg U Marijuana (THC) Screen Neg SARS-CoV-2 (PCR) Influenza Type A (PCR) Influenza Type B (PCR) RSV (RT-PCR) SARS-CoV-2, RNA, NAAT NEGATIVE Diagnostic Findings CXR 09/06/23: IMPRESSION: 1. Cardiomegaly and cardiac pacemaker with evidence of congestive failure. 2. Bilateral airspace opacities likely represent pulmonary edema. Correlate clinically for evidence of a superimposed infectious/inflammatory pneumonitis. Radiographic follow-up to resolution is recommended. 3. Layering pleural effusions with dependent consolidation. Medications Administered Medication List Acetaminophen (Acetaminophen 325 Mg Tab) 650 mg PO Q4H PRN PRN Reason: Pain or Fever Stop: 10/06/23 15:26 Last Admin: 09/07/23 08:10 Dose: 650 mg Documented By: [id number] Escitalopram Oxalate (Escitalopram Oxalate 10 Mg Tab) 5 mg PO DAILY SAGE Stop: 10/07/23 08:59 Last Admin: 09/07/23 08:11 Dose: 5 mg Documented By: [id number] Furosemide (Furosemide Inj 20 Mg/2 Ml Vial) 20 mg IV DAILY SAGE Stop: 10/07/23 08:59 Last Admin: 09/07/23 08:10 Dose: 20 mg Documented By: [id number] Clindamycin Phosphate (Cleocin/D5w) 600 mg in 50 mls @ 100 mls/hr IV Q8H [facility] Stop: 09/16/23 16:59 Last Infusion: 09/07/23 08:50 Dose: Infused Documented By: [id number] Admin: 09/07/23 08:10 Dose: 100 mls/hr Documented By: [id number] Infusion: 09/07/23 00:58 Dose: Infused Documented By: Admin: 09/07/23 00:35 Dose: 100 mls/hr Documented By: Infusion: 09/06/23 21:35 Dose: Infused Documented By: Admin: 09/06/23 17:28 Dose: 100 mls/hr Documented By: TACHO Insulin Aspart (Insulin Aspart Per Unit Charge) 0 units SC ACHS SAGE Stop: 10/06/23 16:29 Last Admin: 09/07/23 09:36 Dose: Not Given Documented By: [id number] Admin: 09/06/23 23:40 Dose: Not Given Documented By: Admin: 09/06/23 23:39 Dose: Not Given Documented By: STEVEN Insulin Glargine (Lantus Per Unit Charge) 0 - 5 units SQ BID SAGE Stop: 10/06/23 20:59 Last Admin: 09/07/23 09:35 Dose: Not Given Documented By: [id number] Admin: 09/06/23 23:41 Dose: Not Given Documented By: STEVEN Levothyroxine Sodium (Levothyroxine Sodium 50 Mcg Tablet) 50 mcg PO DAILYBB [facility] Stop: 10/07/23 06:29 Last Admin: 09/07/23 05:55 Dose: 50 mcg Documented By: STEVEN Metoprolol Tartrate (Metoprolol Tartrate 25 Mg Tab) 12.5 mg PO AMHS SAGE Stop: 10/06/23 20:59 Last Admin: 09/07/23 08:11 Dose: 12.5 mg Documented By: [id number] Admin: 09/06/23 22:25 Dose: Not Given Documented By: ACC Pantoprazole Sodium (Pantoprazole 40 Mg Tab) 40 mg PO AMHS SAGE Stop: 10/06/23 20:59 Last Admin: 09/07/23 08:11 Dose: 40 mg Documented By: [id number] Admin: 09/06/23 22:26 Dose: Not Given Documented By: ACC Propafenone HCl (Propafenone Hcl 150 Mg Tablet) 150 mg PO Q8 [facility]AGE Stop: 10/06/23 15:44 Last Admin: 09/07/23 05:54 Dose: 150 mg Documented By: Admin: 09/06/23 23:42 Dose: Not Given Documented By: Admin: 09/06/23 21:26 Dose: Not Given Documented By: ACC Senna/Docusate Sodium (Docusate Sodium/Senna 50/8.6mg Tab) 1 tab PO BID SAGE Stop: 10/06/23 20:59 Last Admin: 09/07/23 08:10 Dose: 1 tab Documented By: [id number] Admin: 09/06/23 22:25 Dose: Not Given Documented By: ACC Discontinued Medications Furosemide (Furosemide Inj 20 Mg/2 Ml Vial) 20 mg IV NOW STA Stop: 09/06/23 15:31 Last Admin: 09/06/23 21:38 Dose: 20 mg Documented By: ACC PG Care Time/CCT Total # of Minutes Spent Total Time Spent with Patient: Total time spent is greater than 50% in coordination of care (as documented) at patient's floor/unit and/or counseling patient:38 Coding [place] [address] INT INP/OBS CARE 1/40MIN Patient Type Established Medical Decision Making Moderate Complexity Diagnoses Acute on chronic heart failure with preserved ejection fraction (HFpEF) I50.33 Aortic stenosis, severe I35.0 Coronary artery disease involving [place] coronary artery of [place] heart without angina pectoris I25.10 Associated angina: without angina Coronary Disease-Associated Artery/Lesion type: [place] artery [place] vs. transplanted heart: [place] heart Hx of CABG Z95.1 Paroxysmal atrial fibrillation I48.0 Time Spent (min) 59 (3) CAD (coronary artery disease) Associated angina: without angina Coronary Disease-Associated Artery/Lesion type: [place] artery [place] vs. transplanted heart: [place] heart Qualified Code(s): I25.10 - Atherosclerotic heart disease of [place] coronary artery without angina pectoris
--- NOTE | 2023-09-07 12:47 | Hospitalist Progress Note ---
Date of Service September 07, 2023 Assessment & Plan (1) Acute on chronic heart failure with preserved ejection fraction (HFpEF): Plan: Hypoxia Acute HFpEF Moderate to Severe Last echocardiogram 01/2021 revealed LVEF 50%, enlargement of left atrium, LVH, moderately severe to severe aortic stenosis, moderate severe mitral valve insufficiency, moderate to severe tricuspid insufficiency, moderate pulmonic valvular insufficiency, moderate pulmonary hypertension Patient because of fall and facial trauma and found to have acute on chronic CHF currently on lasix 20mg daily s/p flynn i/o appreciate cardiology inputs. Fall Acute right nasal fracture was lethargic on presentation . Today alert and awake and siting comfortably. ICE TID discussed with daughter pt not a surgical candidate and would not want any surgical intervention if indicated empiric clindamycin for now repeat head CT ok Seen by neurosurgery research director- no intervention at this time can stop antibiotics after 24hrs pt/ot Alzheimer Dementia as per H and p.:per daughter has been worsening, refers to past a lot conversation is even difficult monitor for delirium PAF not on anticoagulation 2/2 fall risk continue metoprolol and propafenone will monitor Hypothyroidism chronic, stable On levothyroxine HTN holding amlodipine for now due to low normal BP resume when able continue metoprolol DVT ppx: SCDS 2/2 fall DNR/DNI - Admission and Anticipated Discharge Date Admission Date: September 06, 2023 Subjective Sitting on the chair comfortably very hard of hearing denies any headache or chest pain or abdominal pain seems comfortably could not get much answers as patient is very hard of hearing and has dementia Review of Systems Review of Systems: Unobtainable due to cognitive status Physical Exam Physical Exam: General- Not in distress Head- ecchymosis seen ENT-mild nasal swelling Neck- supple, no JVD. Lungs- clear to auscultation , no wheezing or crackles Heart- irregular rhythm; no murmur, no gallop. Abdomen- normal bowel sounds, soft, nontender, no distension Extremities- no pretibial edema, no erythema seen. Neuro- alert, oriented x 1; no facial palsy; no dysarthria; moves extremities Skin- warm & dry Results & Data Results & Data Vital Signs (Past 12 Hours) Vital Signs Temp Pulse Resp BP Pulse Ox O2 Del Method O2 Flow Rate 09/07/23 11:22 36.7 C 96 H 16 90/56 L 97 Nasal Cannula 2 09/07/23 07:56 36.0 C L 115 H 16 123/77 96 Nasal Cannula 2 09/07/23 04:02 36.3 C L 106 H 20 127/85 97 Nasal Cannula 2 Diagnostic Findings Laboratory Results WBC 7.90 K/ul (4.8-10.8) 09/06/23 12:14 RBC 4.29 M/uL (4.20-5.40) 09/06/23 12:14 Hgb 12.8 g/dl (12.0-16.0) 09/06/23 12:14 Hct 38.7 % (37.0-47.0) 09/06/23 12:14 MCV 90.2 fL (80.0-100.0) 09/06/23 12:14 MCH 29.8 pg (25.0-34.0) 09/06/23 12:14 MCHC 33.1 g/dL (32.0-36.0) 09/06/23 12:14 RDW Std Deviation 51.8 fL (36.4-46.3) H 09/06/23 12:14 RDW Coeff of Charisma 15.7 % (11.5-14.5) H 09/06/23 12:14 Plt Count 252 K/uL (130-400) 09/06/23 12:14 MPV 11.3 fL (9.4-12.4) 09/06/23 12:14 Immature Gran % (Auto) 0.5 % 09/06/23 12:14 Neut % (Auto) 78.3 % 09/06/23 12:14 Lymph % (Auto) 12.7 % 09/06/23 12:14 [place] % (Auto) 6.2 % 09/06/23 12:14 Eos % (Auto) 1.5 % 09/06/23 12:14 Baso % (Auto) 0.8 % 09/06/23 12:14 Neut # (Auto) 6.19 K/uL (1.40-6.50) 09/06/23 12:14 Lymph # (Auto) 1.00 K/uL (1.20-3.40) L 09/06/23 12:14 [place] # (Auto) 0.49 K/uL (0.11-0.59) 09/06/23 12:14 Eos # (Auto) 0.12 K/uL (0.00-0.50) 09/06/23 12:14 Baso # (Auto) 0.06 K/uL (0.00-0.20) 09/06/23 12:14 Immature Gran # (Auto) 0.04 K/uL (0.01-0.20) 09/06/23 12:14 Sodium 134 mmol/L (136-145) L 09/06/23 12:14 Potassium 4.4 mmol/L (3.5-5.1) 09/06/23 12:14 Chloride 104 mmol/L (98-107) 09/06/23 12:14 Carbon Dioxide 22 mmol/L (21-32) 09/06/23 12:14 Anion Gap 8 (3-11) 09/06/23 12:14 BUN 26 mg/dl (6-23) H 09/06/23 12:14 Creatinine 0.81 mg/dl (0.6-1.2) 09/06/23 12:14 Est Cr Clr Drug Dosing 36.0 ml/min 09/06/23 12:14 Est GFR ( Amer) 74.6 ml/min 09/06/23 12:14 Est GFR (Non-Af Amer) 64.4 ml/min 09/06/23 12:14 BUN/Creatinine Ratio 32.1 (10-20) H 09/06/23 12:14 Glucose 263 mg/dl (70-99(Fasting)) H 09/06/23 12:14 POC Glucose 153 mg/dl (70-99) H 09/07/23 12:23 Calcium 9.3 mg/dl (8.6-10.3) 09/06/23 12:14 Total Bilirubin 0.8 mg/dl (0.2-1.0) 09/06/23 12:14 AST 20 U/L (13-39) 09/06/23 12:14 ALT 18 U/L (7-52) 09/06/23 12:14 Alkaline Phosphatase 84 U/L (34-104) 09/06/23 12:14 Troponin I High Sens 11.7 pg/ml (0-14) 09/06/23 12:14 B-Natriuretic Peptide 2417 pg/ml (0-100) H 09/06/23 12:14 Total Protein 6.6 gm/dl (6.0-8.3) 09/06/23 12:14 Albumin 3.9 gm/dl (3.4-5.0) 09/06/23 12:14 Globulin 2.7 gm/dl (2.5-4.0) 09/06/23 12:14 Albumin/Globulin Ratio 1.4 (0.9-2) 09/06/23 12:14 Urine Color Yellow 09/06/23 Unknown Urine Appearance Cloudy (Clear) A 09/06/23 Unknown Urine pH 6.0 (4.5-7.5) 09/06/23 Unknown Ur Specific [place] 1.007 (1.000-1.030) 09/06/23 Unknown Urine Protein Negative (Negative) 09/06/23 Unknown Urine Glucose (UA) Negative (Negative) 09/06/23 Unknown Urine Ketones Negative (Negative) 09/06/23 Unknown Urine Blood 1+ (Negative) H 09/06/23 Unknown Urine Nitrite Negative (Negative) 09/06/23 Unknown Urine Bilirubin Negative (Negative) 09/06/23 Unknown Urine Urobilinogen Negative (Negative) 09/06/23 Unknown Ur Leukocyte Esterase 3+ (Negative) H 09/06/23 Unknown Urine WBC (Auto) >30 /hpf (0-5) H 09/06/23 Unknown Urine RBC (Auto) 0-4 /hpf (0-4) 09/06/23 Unknown U Hyaline Cast (Auto) 1-5 /lpf (0-5) 09/06/23 Unknown U Epithel Cells (Auto) 20-30 /lpf (0-5) H 09/06/23 Unknown Urine Bacteria (Auto) 1+ (Negative) H 09/06/23 Unknown Urine Yeast Not Reportable 09/06/23 Unknown Urine Opiates Screen Neg (Neg) 09/06/23 Unknown Ur Methadone, Qual Neg (Neg) 09/06/23 Unknown Urine Barbiturates Neg (Neg) 09/06/23 Unknown Ur Phencyclidine (PCP) Neg (Neg) 09/06/23 Unknown U Amphetamin/Meth Scrn Neg (Neg) 09/06/23 Unknown MDMA (Ecstasy) Screen Neg (Neg) 09/06/23 Unknown U Benzodiazepines Scrn Neg (Neg) 11/20/23 Unknown Ur Cocaine Metabolite Neg (Neg) 09/06/23 Unknown U Marijuana (THC) Screen Neg (Neg) 09/06/23 Unknown SARS-CoV-2 (PCR) NEGATIVE (Negative) 09/06/23 13:40 Influenza Type A (PCR) Negative (Neg) 09/06/23 13:40 Influenza Type B (PCR) Negative (Neg) 09/06/23 13:40 RSV (RT-PCR) Negative (Neg) 09/06/23 13:40 SARS-CoV-2, RNA, NAAT NEGATIVE (NEGATIVE) 09/07/23 Unknown Impressions Cervical Spine CT 09/06/23 11:37 CT cervical spine wo con CLINICAL HISTORY: fall, TECHNIQUE: Multidetector row helical CT of the cervical spine was performed without administration of intravenous contrast. Coronal and sagittal reformations were obtained. Automated dose lowering techniques and/or adjustment according to patient size were utilized for this exam. Comparison: Comparison is made to CT cervical spine 03/10/2022 FINDINGS: No acute fractures or subluxations are identified. Degenerative changes are seen in the visualized spine. The alignment is normal. Partial visualization of pleural effusions versus atelectasis in the lungs. IMPRESSION: Degenerative changes without evidence of acute bony injury. ACT 112: Negative or not required by law. Electronically signed by: Misael Holguin M.D. 09/06/2023 12:33 PM Chest X-Ray 09/06/23 11:37 SINGLE VIEW CHEST CLINICAL HISTORY: Dyspnea FINDINGS: 2 AP, portable, upright chest radiographs are compared to study dated 06/12/2023. Partially degraded The patient is status post midline sternotomy. A 2-lead cardiac pacemaker is unchanged in position and partially obscures the right mid chest. The heart is enlarged noting atherosclerotic calcification of the thoracic aorta. A coronary artery stent is in place. There is pulmonary vascular congestion. Bilateral airspace opacities likely represent interstitial edema. There are layering pleural effusions with dependent consolidation. No pneumothorax is seen. The skeletal structures are osteopenic. The bony thorax is grossly intact. IMPRESSION: 1. Cardiomegaly and cardiac pacemaker with evidence of congestive failure. 2. Bilateral airspace opacities likely represent pulmonary edema. Correlate clinically for evidence of a superimposed infectious/inflammatory pneumonitis. Radiographic follow-up to resolution is recommended. 3. Layering pleural effusions with dependent consolidation ACT 112: Negative or not required by law. Electronically signed by: Juan Srinivasan M.D. 09/06/2023 12:[address] 09/06/23 13:17 CT facial bones wo con CLINICAL HISTORY: r/o nasal bone fx TECHNIQUE: Multidetector row helical CT of the maxillofacial bones was performed without administration of intravenous contrast, and processed with bone and soft tissue algorithms. Coronal and sagittal reformations were obtained. Automated dose lowering techniques and/or adjustment according to patient size were utilized for this exam. Comparison: Comparison is made to CT head 09/06/2023 FINDINGS: Exam is highly limited by patient motion. There is a likely nondisplaced fracture of the right nasal bone. Soft tissue swelling is seen about the nose. The mandible is intact. The temporomandibular joints are anatomically aligned. Pterygoid plates are intact. Zygomatic arches are intact. The globes are normal and symmetric, without proptosis, obvious disruption or l ens dislocation. Senile calcific scleral plaques are noted. The orbital malik are intact. The retrobulbar fat is without evidence of disruption. Extraocular muscles are normal and symmetric. Optic nerve sheath complexes are normal in course and caliber. Soft tissue swelling is seen in the midline frontal region. Imaged portions of the paranasal sinuses and mastoid air cells are clear. IMPRESSION: Right nasal fracture with associated soft tissue swelling. ACT 112: Negative or not required by law. Electronically signed by: Misael Holguin M.D. 09/06/2023 2:[address] 09/06/23 19:00 Exam(s): CT HEAD Without Contrast EXAM: CT Head Without Intravenous Contrast CLINICAL HISTORY: Reason for exam: repeat. TECHNIQUE: Axial computed tomography images of the head/brain without intravenous contrast. CTDI is 37.22 mGy and DLP is 546.36 mGy-cm. Automated exposure control was utilized for the study. A dose lowering technique was utilized adhering to the principles of ALARA. COMPARISON: CT head 09/06/2023. FINDINGS: Artifacts: Exam is degraded by patient motion. Brain: Global parenchymal volume loss with chronic microvascular ischemic changes and chronic right frontal lobe infarction. No hemorrhage. Ventricles: Prominence of the ventricles related to volume loss. Bones/joints: Unremarkable. No acute fracture. Soft tissues: Left frontal scalp hematoma. Sinuses: Unremarkable as visualized. Mastoid air cells: Unremarkable as visualized. No mastoid effusion. IMPRESSION: 1. Exam is degraded by patient motion. 2. No intracranial hemorrhage is seen. 3. Left frontal scalp hematoma. 4. Global parenchymal volume loss with chronic microvascular ischemic changes and chronic right frontal lobe infarction. Electronically signed by: Blu Camara MD 09/06/23 22:07 PM
--- NOTE | 2023-09-07 17:18 | XCELERA ---
[id number]
[2023-09-08] MEDS: ACETAMINOPHEN 325 MG TAB PO PRN ×2 (04:04→20:01)
[2023-09-08] MEDS: PROPAFENONE HCL 150 MG TABLET PO SCH (04:04)
[2023-09-08] MEDS: LEVOTHYROXINE SODIUM 50 MCG TABLET PO SCH (04:04)
[2023-09-08] MEDS: DOCUSATE SODIUM/SENNA 50/8.6MG TAB PO SCH ×2 (08:25→19:49)
[2023-09-08] MEDS: METOPROLOL TARTRATE 25 MG TAB PO SCH ×2 (08:25→19:50)
[2023-09-08] MEDS: ESCITALOPRAM OXALATE 10 MG TAB PO SCH (08:25)
[2023-09-08] MEDS: PANTOprazole 40 MG TAB PO SCH ×2 (08:26→19:49)
[2023-09-08] MEDS: FUROSEMIDE INJ 20 MG/2 ML VIAL IV SCH ×2 (08:26→09:13)
[2023-09-08 08:55] LABS: BUN Creatinine Ratio 26.1 (10-20); Calcium 8.9 mg/dl (8.6-10.3); Creatinine Clr Calc Pharmacy 31.9 ml/min; Est GFR (Non-African American) 55.2 ml/min; Magnesium 1.6 mg/dl (1.7-2.4); Potassium 3.8 mmol/L (3.5-5.1)
[2023-09-08] MEDS ORDERED: POTASSIUM CHLORIDE CRTAB 20 MEQ TABCR PO STA (09:06)
--- NOTE | 2023-09-08 09:08 | Hospitalist Progress Note ---
Date of Service September 08, 2023 Assessment & Plan (1) Acute on chronic heart failure with preserved ejection fraction (HFpEF): Plan: Hypoxia Acute HFpEF Moderate to Severe Last echocardiogram 01/2021 revealed LVEF 50%, enlargement of left atrium, LVH, moderately severe to severe aortic stenosis, moderate severe mitral valve insufficiency, moderate to severe tricuspid insufficiency, moderate pulmonic valvular insufficiency, moderate pulmonary hypertension Patient because of fall and facial trauma and found to have acute on chronic CHF currently on lasix 20mg daily s/p flynn i/o appreciate cardiology inputs. Current Echo - Dilated LV with severely reduced LV systolic function. -- LVEF 25% to 30% with severe hypokinesis to akinesis of apex and mid to distal inferior wall, otherwise global hypokinesis. -- Decreased RV systolic function. -- Severe . -- [id number] MR. -- Moderate pulmonary hypertension. Per cardiology - The etiology of her Cardiomyopathy is likely multifactorial -- likely related to Valvular Heart Disease, Tachycardia related to A-Fib, with a probable Ischemic Component. As she has a newly discovered Cardiomyopathy with an LVEF of 25% to 30% -- Propafenone is contraindicated and will be stopped. Recommend the followin. Increase IV Lasix to 40 mg daily. 2. Increase Metoprolol Tartrate to 25 mg b.i.d. 3. Begin Jardiance 10 mg daily. 4. Begin Spironolactone 25 mg daily. 5. Monitor I&O's and daily body weights. 6. Daily BMP +/- serum Mg level. 7. Strict 2 g low sodium diet. If HR becomes an issue off of Propafenone -- recommend titrating her beta fara +/- adding Digoxin. She is not a candidate for anticoagulation due to her fall risk. Fall Acute right nasal fracture was lethargic on presentation . Now alert and awake and siting comfortably. ICE TID discussed with daughter pt not a surgical candidate and would not want any surgical intervention if indicated empiric clindamycin given repeat head CT ok Seen by behavioral assistant- no intervention at this time can stop antibiotics after 24hrs - abx stopped pt/ot Alzheimer Dementia as per H and p.:per daughter has been worsening, refers to past a lot conversation is even difficult monitor for delirium PAF not on anticoagulation 2/2 fall risk continue metoprolol, propafenone stopped (as above) will monitor Hypothyroidism chronic, stable On levothyroxine HTN holding amlodipine for now due to low normal BP resume when able continue metoprolol - meds managed by cardiology at this time DVT ppx: SCDS 2/2 fall DNR/DNI - Admission and Anticipated Discharge Date Admission Date: September 06, 2023 Subjective Pt seen in follow up of fall, CHF exacerb. Sitting in the chair comfortably very hard of hearing denies any headache or chest pain or abdominal pain seems comfortable could not get much answers as patient is very hard of hearing and has dementia Pt seen by cardiology as well, medications adjusted Per CM - pt is to return to [facility] after DC Review of Systems Review of Systems: Unobtainable due to cognitive status Physical Exam Physical Exam: General- elderly F in NAD Head- ecchymosis seen ENT-mild nasal swelling Neck- supple Lungs- clear to auscultation , no wheezing or crackles Heart- irregular rhythm; no murmur, no gallop. Abdomen- normal bowel sounds, soft, nontender, no distension Extremities- no pretibial edema, no erythema seen. Neuro- alert, oriented x 1; no facial palsy; no dysarthria; moves extremities Skin- warm & dry Results & Data Results & Data Vital Signs (Past 12 Hours) Vital Signs Temp Pulse Pulse Resp BP Pulse Ox O2 Del Method 09/08/23 07:54 36.4 C L 90 16 127/80 94 Room Air 09/08/23 07:43 91 H 09/08/23 04:15 36.2 C L 86 18 107/68 95 Room Air 09/07/23 23:58 36.2 C L 95 H 18 95/61 L 91 Room Air 09/07/23 23:00 94 H Laboratory Results 09/08/23 09/08/23 09/07/23 Range/Units 08:12 07:20 20:25 Sodium 138 (136-145) mmol/L Potassium 3.8 (3.5-5.1) mmol/L Chloride 103 (98-107) mmol/L Carbon Dioxide 27 (21-32) mmol/L Anion Gap 8 (3-11) BUN 24 H (6-23) mg/dl Creatinine 0.92 (0.6-1.2) mg/dl Est Cr Clr Drug Dosing 31.9 ml/min Est GFR ( Amer) 64.0 ml/min Est GFR (Non-Af Amer) 55.2 ml/min BUN/Creatinine Ratio 26.1 H (10-20) Glucose 110 H (70-99(Fasting)) mg/dl POC Glucose 111 H 151 H (70-99) mg/dl Estimat Average Glucose Hemoglobin A1c Calcium 8.9 (8.6-10.3) mg/dl Phosphorus 4.0 (2.5-4.9) mg/dl Magnesium 1.6 L (1.7-2.4) mg/dl 09/07/23 09/07/23 09/07/23 Range/Units 17:08 12: 12:14 Sodium (136-145) mmol/L Potassium (3.5-5.1) mmol/L Chloride (98-107) mmol/L Carbon Dioxide (21-32) mmol/L Anion Gap (3-11) BUN (6-23) mg/dl Creatinine (0.6-1.2) mg/dl Est Cr Clr Drug Dosing ml/min Est GFR ( Amer) ml/min Est GFR (Non-Af Amer) ml/min BUN/Creatinine Ratio (10-20) Glucose (70-99(Fasting)) mg/dl POC Glucose 171 H 153 H (70-99) mg/dl Estimat Average Glucose Pending Hemoglobin A1c Pending Calcium (8.6-10.3) mg/dl Phosphorus (2.5-4.9) mg/dl Magnesium (1.7-2.4) mg/dl Medications Administered Current Inpatient Medications Acetaminophen (Acetaminophen 325 Mg Tab) 650 mg PO Q4H PRN PRN Reason: Pain or Fever Stop: 10/06/23 15:26 Last Admin: 09/08/23 04:04 Dose: 650 mg Al Hydrox/Mg Hydrox/Simethicone (Aluminum/Magnesium Susp 30 Ml Udc) 15 ml PO Q4H PRN PRN Reason: Dyspepsia Stop: 10/06/23 15:26 Dextrose (Dextrose 50% 50 Ml Syringe) 25 - 50 ml IV UD PRN; Protocol PRN Reason: Hypoglycemia Protocol Stop: 10/06/23 15:54 Escitalopram Oxalate (Escitalopram Oxalate 10 Mg Tab) 5 mg PO DAILY SAGE Stop: 10/07/23 08:59 Last Admin: 09/08/23 08:25 Dose: 5 mg Furosemide (Furosemide Inj 20 Mg/2 Ml Vial) 20 mg IV DAILY SAGE Stop: 10/07/23 08:59 Last Admin: 09/08/23 08:26 Dose: 20 mg Glucagon (Glucagon For Inj 1 Mg Vial) 1 mg SQ UD PRN; Protocol PRN Reason: Hypoglycemia Protocol Stop: 10/06/23 15:54 Glucose (Glucose 10 Tab/Tube) 4 - 8 tab PO UD PRN; Protocol PRN Reason: Hypoglycemia Treatment Stop: 10/06/23 15:54 Glucose (Glucose 40% Gel 15 Gm Tube) 15 - 30 gm PO UD PRN; Protocol PRN Reason: Hypoglycemia Protocol Stop: 10/06/23 15:54 Insulin Aspart (Insulin Aspart Per Unit Charge) 0 units SC ACHS SAGE Stop: 10/06/23 16:29 Last Admin: 09/07/23 20:27 Dose: Not Given Insulin Glargine (Lantus Per Unit Charge) 0 - 5 units SQ BID SAGE Stop: 10/06/23 20:59 Last Admin: 09/07/23 20:34 Dose: 5 units Levothyroxine Sodium (Levothyroxine Sodium 50 Mcg Tablet) 50 mcg PO DAILYBB SAGE Stop: 10/07/23 06:29 Last Admin: 09/08/23 04:04 Dose: 50 mcg Magnesium Hydroxide (Magnesium Hydroxide Susp 30 Ml Udc) 30 ml PO Q12H PRN PRN Reason: Constipation Stop: 10/06/23 15:26 Magnesium Oxide (Magnesium Oxide 400 Mg Tab) 400 mg PO BID SAGE Stop: 10/08/23 09:14 Metoprolol Tartrate (Metoprolol Tartrate 25 Mg Tab) 12.5 mg PO AMHS SAGE Stop: 10/06/23 20:59 Last Admin: 09/08/23 08:25 Dose: 12.5 mg Miscellaneous (Carbohydrates For Hypoglycemia ) 15 - 30 gm PO UD PRN PRN Reason: Hypoglycemia Protocol Stop: 10/06/23 15:54 Olanzapine (Olanzapine 10 Mg/2.1 Ml Sdv) 2.5 mg IM Q4H PRN PRN Reason: Agitation Stop: 10/06/23 22:59 Pantoprazole Sodium (Pantoprazole 40 Mg Tab) 40 mg PO AMHS SAGE Stop: 10/06/23 20:59 Last Admin: 09/08/23 08:26 Dose: 40 mg Potassium Chloride (Potassium Chloride Crtab 20 Meq Tabcr) 20 meq PO NOW STA Stop: 09/08/23 09:07 Propafenone HCl (Propafenone Hcl 150 Mg Tablet) 150 mg PO Q8 SAGE Stop: 10/06/23 15:44 Last Admin: 09/08/23 04:04 Dose: 150 mg Senna/Docusate Sodium (Docusate Sodium/Senna 50/8.6mg Tab) 1 tab PO BID SAGE Stop: 10/06/23 20:59 Last Admin: 09/08/23 08:25 Dose: 1 tab
[2023-09-08 09:11] LABS: Estimated Average Glucose 174 mg/dl; Hemoglobin A1C 7.7 % (4.5-5.6)
--- NOTE | 2023-09-08 09:36 | Cardiology Progress Note ---
Date of Service September 08, 2023 Assessment & Plan (1) Acute on chronic combined systolic and diastolic CHF (congestive heart failure): Plan: Mrs. 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 Patient's fall was witnessed by her roommate, and the patient was sitting in a chair fell forward striking her head and face on the floor. Patient was very lethargic after the fall. Her vital signs were stable. They sent her to ER for further evaluation. In the ER, Head CT was negative for any acute intracranial hemorrhage or skull fracture. Scalp swelling was noted in the midline frontal soft tissues. C-spine CT revealed degenerative changes without evidence of acute bony injury. Chest x-ray revealed cardiomegaly and cardiac pacemaker with evidence of congestive failure. Bilateral airspace opacities likely represent pulmonary edema vs superimposed infectious/inflammatory pneumonitis. Layering pleural effusions with dependent consolidations noted. Additionally the patient was noted to have an elevated BNP level of 2417 pg/mL. High sensitivity troponin I is normal at 11.7 pg/mL. Patient does admit to having increased shortness of breath and dyspnea on exertion leading up to this hospitalization but she does not recall when this started. She has not experienced any angina pectoris. She denies any syncope or loss of consciousness contributing to her fall. Patient is less SOB today. Patient was started on IV Lasix 20 mg daily and thus far has a negative fluid ba bin of 800 mL in the past 48 hours. She has ongoing evidence of heart failure on physical examination today. Goal remains to diurese her at approximately 2723-4819 mL/24 hours while closely monitoring renal function. Patient remains in rate controlled atrial fibrillation -- but she is not a candidate for anticoagulation due to her fall risk. The etiology of her Cardiomyopathy is likely multifactorial -- likely related to Valvular Heart Disease, Tachycardia related to A-Fib, with a probable Ischemic Component. As she has a newly discovered Cardiomyopathy with an LVEF of 25% to 30% -- Propafenone is contraindicated and will be stopped. Recommend the followin. Increase IV Lasix to 40 mg daily. 2. Increase Metoprolol Tartrate to 25 mg b.i.d. 3. Begin Jardiance 10 mg daily. 4. Begin Spironolactone 25 mg daily. 5. Monitor I&O's and daily body weights. 6. Daily BMP +/- serum Mg level. 7. Strict 2 g low sodium diet. (2) Aortic stenosis, severe: Plan: Patient had her Echocardiogram updated on 09/07/23: ECHOCARDIOGRAM 09/07/23: -- Dilated LV with severely reduced LV systolic function. -- LVEF 25% to 30% with severe hypokinesis to akinesis of apex and mid to distal inferior wall, otherwise global hypokinesis. -- Decreased RV systolic function. -- Severe . -- [id number] MR. -- Moderate pulmonary hypertension. Patient refused evaluation for TAVR in the past and continues to refuse. Echocardiogram has been ordered by the hospitalist team. (3) CAD (coronary artery disease): (4) Hx of CABG: Plan: CAD s/p CABG x 3 Vessels 1984, Re-do CABG x 3 Vessels 1999, Multiple Intracoronary Stents. -- She has an unremarkable high sensitivity troponin I and has not had any angina pectoris. -- Medication adjustment as outlined above. -- She refuses statin medications due to adverse drug reactions with statins in the past. (5) Paroxysmal atrial fibrillation: Plan: Patient has a newly discovered Cardiomyopathy with an LVEF of 25% to 30% -- Propafenone is contraindicated and will be stopped. 1. Increase Metoprolol Tartrate to 25 mg b.i.d. -- titrate dose if BP allows. 2. STOP Propafenone. 3. If HR becomes an issue off of Propafenone -- recommend titrating her beta fara +/- adding Digoxin. 4. She is not a candidate for anticoagulation due to her fall risk. We will continue to follow along while hospitalized and following discharge. Admission and Anticipated Discharge Date Admission Date: September 06, 2023 Subjective Mrs. Mitchell is sitting up in a bedside chair this morning. She states that she is feeling okay today. She denies any SOB, orthopnea, PND, chest pain, or angina pectoris. ECHOCARDIOGRAM 09/07/23: -- Dilated LV with severely reduced LV systolic function. -- LVEF 25% to 30% with severe hypokinesis to akinesis of apex and mid to distal inferior wall, otherwise global hypokinesis. -- Decreased RV systolic function. -- Severe . -- [id number] MR. -- Moderate pulmonary hypertension. Physical Exam Physical Exam: HR 90 bpm and irregular. Blood pressure is 127/80. GENERAL: Patient in no acute distress. HEENT: Periorbital ecchymosis, with swelling of the nose. EOM's intact. No perioral cyanosis. NECK: No JVD. JVP is elevated. CHEST/LUNGS: Crackles are present in bilateral lower lung bradshaw. No wheezes. CVS: S1 and S2 are irregular at 90 bpm with a grade 2/6 crescendo decrescendo basal systolic murmur heard best over the right 2nd intercostal. There is also a grade 2/6 apical holosystolic murmur. No diastolic murmurs. No gallops or rubs. PMI is laterally displaced. No lifts, heaves, or thrills. No abdominal aortic or renal bruits. Palpable pacemaker generator is present in the left subclavian fossa. ABDOMINAL EXAM: Bowel sounds are present. No masses, organomegaly, or tenderness. EXTREMITIES: No clubbing or cyanosis. No edema. Intact radial pulses bilaterally. NEUROLOGIC EXAM: Patient is alert and interactive. Pleasant and cooperative. Speech is clear. Hard of hearing. MARINA PORTER: -- A-Fib with V-rates in the 90's. Results & Data Vital Signs (Past 12 Hours) Vital Signs Temp Pulse Pulse Resp BP Pulse Ox O2 Del Method 09/08/23 07:54 36.4 C L 90 16 127/80 94 Room Air 09/08/23 07:43 91 H 09/08/23 04:15 36.2 C L 86 18 107/68 95 Room Air 09/07/23 23:58 36.2 C L 95 H 18 95/61 L 91 Room Air 09/07/23 23:00 94 H Laboratory Results Laboratory Results - last 24 hr 09/07/23 09/07/23 09/07/23 12:23 17:08 20:25 Sodium Potassium Chloride Carbon Dioxide Anion Gap BUN Creatinine Est Cr Clr Drug Dosing Est GFR ( Amer) Est GFR (Non-Af Amer) BUN/Creatinine Ratio Glucose POC Glucose 153 H 171 H 151 H Estimat Average Glucose Hemoglobin A1c Calcium Phosphorus Magnesium 09/08/23 09/08/23 09/08/23 07:14 07:20 08:12 Sodium 138 Potassium 3.8 Chloride 103 Carbon Dioxide 27 Anion Gap 8 BUN 24 H Creatinine 0.92 Est Cr Clr Drug Dosing 31.9 Est GFR ( Amer) 64.0 Est GFR (Non-Af Amer) 55.2 BUN/Creatinine Ratio 26.1 H Glucose 110 H POC Glucose 111 H Estimat Average Glucose 174 Hemoglobin A1c 7.7 H Calcium 8.9 Phosphorus 4.0 Magnesium 1.6 L Medications Administered Medication List Acetaminophen (Acetaminophen 325 Mg Tab) 650 mg PO Q4H PRN PRN Reason: Pain or Fever Stop: 10/06/23 15:26 Last Admin: 09/08/23 04:04 Dose: 650 mg Documented By: Admin: 09/07/23 20:26 Dose: 650 mg Documented By: Admin: 09/07/23 08:10 Dose: 650 mg Documented By: [id number] Escitalopram Oxalate (Escitalopram Oxalate 10 Mg Tab) 5 mg PO DAILY [facility] Stop: 10/07/23 08:59 Last Admin: 09/08/23 08:25 Dose: 5 mg Documented By: Admin: 09/07/23 08:11 Dose: 5 mg Documented By: [id number] Insulin Aspart (Insulin Aspart Per Unit Charge) 0 units SC ACHS [facility] Stop: 10/06/23 16:29 Last Admin: 09/07/23 20:27 Dose: Not Given Documented By: Admin: 09/07/23 17:18 Dose: 1 units Documented By: [id number] Co-signed By: [email or web address] Admin: 09/07/23 12:27 Dose: Not Given Documented By: [id number] Admin: 09/07/23 09:36 Dose: Not Given Documented By: [id number] Admin: 09/06/23 23:40 Dose: Not Given Documented By: Admin: 09/06/23 23:39 Dose: Not Given Documented By: STEVEN Insulin Glargine (Lantus Per Unit Charge) 0 - 5 units SQ BID [facility] Stop: 10/06/23 20:59 Last Admin: 09/07/23 20:34 Dose: 5 units Documented By: DEION Co-signed By: KOREY Admin: 09/07/23 09:35 Dose: Not Given Documented By: [id number] Admin: 09/06/23 23:41 Dose: Not Given Documented By: STEVEN Levothyroxine Sodium (Levothyroxine Sodium 50 Mcg Tablet) 50 mcg PO DAILYBB [facility] Stop: 10/07/23 06:29 Last Admin: 09/08/23 04:04 Dose: 50 mcg Documented By: Admin: 09/07/23 05:55 Dose: 50 mcg Documented By: STEVEN Pantoprazole Sodium (Pantoprazole 40 Mg Tab) 40 mg PO AMHS [facility] Stop: 10/06/23 20:59 Last Admin: 09/08/23 08:26 Dose: 40 mg Documented By: Admin: 09/07/23 20:28 Dose: 40 mg Documented By: Admin: 09/07/23 08:11 Dose: 40 mg Documented By: [id number] Admin: 09/06/23 22:26 Dose: Not Given Documented By: ROSEANNE Senna/Docusate Sodium (Docusate Sodium/Senna 50/8.6mg Tab) 1 tab PO BID [facility] Stop: 10/06/23 20:59 Last Admin: 09/08/23 08:25 Dose: 1 tab Documented By: Admin: 09/07/23 20:26 Dose: 1 tab Documented By: Admin: 09/07/23 08:10 Dose: 1 tab Documented By: [id number] Admin: 09/06/23 22:25 Dose: Not Given Documented By: ACC Discontinued Medications Furosemide (Furosemide Inj 20 Mg/2 Ml Vial) 20 mg IV NOW [facility] Stop: 09/06/23 15:31 Last Admin: 09/06/23 21:38 Dose: 20 mg Documented By: ACC Furosemide (Furosemide Inj 20 Mg/2 Ml Vial) 20 mg IV DAILY [facility] Stop: 10/07/23 08:59 Last Admin: 09/08/23 09:13 Dose: 20 mg Documented By: Admin: 09/07/23 08:10 Dose: 20 mg Documented By: [id number] Clindamycin Phosphate (Cleocin/D5w) 600 mg in 50 mls @ 100 mls/hr IV Q8H [facility] Stop: 09/07/23 16:59 Last Infusion: 09/07/23 08:50 Dose: Infused Documented By: [id number] Admin: 09/07/23 08:10 Dose: 100 mls/hr Documented By: [id number] Infusion: 09/07/23 00:58 Dose: Infused Documented By: Admin: 09/07/23 00:35 Dose: 100 mls/hr Documented By: Infusion: 09/06/23 21:35 Dose: Infused Documented By: Admin: 09/06/23 17:28 Dose: 100 mls/hr Documented By: TACHO Metoprolol Tartrate (Metoprolol Tartrate 25 Mg Tab) 12.5 mg PO AMHS [facility] Stop: 10/06/23 20:59 Last Admin: 09/08/23 08:25 Dose: 12.5 mg Documented By: Admin: 09/07/23 20:27 Dose: 12.5 mg Documented By: Admin: 09/07/23 08:11 Dose: 12.5 mg Documented By: [id number] Admin: 09/06/23 22:25 Dose: Not Given Documented By: ACC Propafenone HCl (Propafenone Hcl 150 Mg Tablet) 150 mg PO Q8 [facility] Stop: 10/06/23 15:44 Last Admin: 09/08/23 04:04 Dose: 150 mg Documented By: Admin: 09/07/23 20:28 Dose: 150 mg Documented By: Admin: 09/07/23 14:18 Dose: 150 mg Documented By: [id number] Admin: 09/07/23 05:54 Dose: 150 mg Documented By: Admin: 09/06/23 23:42 Dose: Not Given Documented By: Admin: 09/06/23 21:26 Dose: Not Given Documented By: ACC PG Care Time/CCT Total # of Minutes Spent Total Time Spent with Patient: Total time spent is greater than 50% in coordination of care (as documented) at patient's floor/unit and/or counseling patient:44 Coding [place] [address] SUB INP/OBS CARE 3/50MIN Patient Type Established History Detailed Exam Detailed Medical Decision Making High Complexity Diagnoses Acute on chronic combined systolic and diastolic CHF (congestive heart failure) I50.43 Aortic stenosis, severe I35.0 Coronary artery disease involving [place] coronary artery of [place] heart without angina pectoris I25.10 Coronary Disease-Associated Artery/Lesion type: [place] artery [place] vs. transplanted heart: [place] heart Associated angina: without angina Hx of CABG Z95.1 Paroxysmal atrial fibrillation I48.0 Time Spent (min) 56 (3) CAD (coronary artery disease) Coronary Disease-Associated Artery/Lesion type: [place] artery [place] vs. tra nsplanted heart: [place] heart Associated angina: without angina Qualified Code(s): I25.10 - Atherosclerotic heart disease of [place] coronary artery without angina pectoris
[2023-09-08] MEDS: INSULIN ASPART PER UNIT CHARGE SC SCH ×4 (09:49→20:02)
[2023-09-08] MEDS: LANTUS PER UNIT CHARGE SQ SCH ×2 (09:50→20:02)
[2023-09-08] MEDS: MAGNESIUM OXIDE 400 MG TAB PO SCH ×2 (10:20→19:49)
[2023-09-08] MEDS: SPIRONOLACTONE 25 MG TAB PO SCH (10:20)
[2023-09-08] MEDS: EMPAGLIFLOZIN 10 MG TAB PO SCH (10:20)
--- NOTE | 2023-09-09 05:42 | Electrocardiogram Report ---
Test Reason : Blood Pressure : / mmHG Vent. Rate : 089 BPM Atrial Rate : 089 BPM P-R Int : 164 ms QRS Dur : 186 ms QT Int : 464 ms P-R-T Axes : 000 -46 009 degrees QTc Int : 564 ms Sinus rhythm Right bundle branch block Left anterior fascicular block Bifascicular block Septal infarct , age undetermined Abnormal ECG When compared with ECG of 12-JUN-2023 15:33, Sinus rhythm has replaced atrial pacing T wave inversion no longer evident in Inferolateral leads Confirmed by Hermelindo Del Real ([id number]) on 09/09/2023 5:42:09 AM [facility] Confirmed By:Hermelindo Del Real
[2023-09-09] MEDS: ACETAMINOPHEN 325 MG TAB PO PRN (06:19)
[2023-09-09] MEDS: LEVOTHYROXINE SODIUM 50 MCG TABLET PO SCH (06:20)
--- NOTE | 2023-09-09 06:24 | Electrocardiogram Report ---
Test Reason : Blood Pressure : / mmHG Vent. Rate : 112 BPM Atrial Rate : 112 BPM P-R Int : 120 ms QRS Dur : 168 ms QT Int : 432 ms P-R-T Axes : 123 -59 -60 degrees QTc Int : 589 ms Sinus tachycardia Right bundle branch block Left anterior fascicular block Bifascicular block Septal infarct (cited on or before 30-APR-2022) Abnormal ECG When compared with ECG of 06-SEP-2023 11:11, No significant change Confirmed by Hermelindo Del Real ([id number]) on 09/09/2023 6:24:14 AM Referred By: Mckinley Bella Confirmed By:Hermelindo Del Real
[2023-09-09 06:42] LABS: Mean Corpuscular Hemoglobin 29.6 pg (25.0-34.0); Mean Corpuscular Hgb Conc 33.3 g/dL (32.0-36.0); Mean Corpuscular Volume 88.8 fL (80.0-100.0); Mean Platelet Volume 11.2 fL (9.4-12.4); Platelet Count 259 K/uL (130-400); RDW Coefficient of Variation 15.5 % (11.5-14.5); RDW Standard Deviation 51.5 fL (36.4-46.3); Red Blood Count 4.39 M/uL (4.20-5.40); White Blood Count 5.29 K/ul (4.8-10.8)
[2023-09-09 07:02] LABS: BUN Creatinine Ratio 24.2 (10-20); Calcium 9.2 mg/dl (8.6-10.3); Creatinine Clr Calc Pharmacy 31.5 ml/min; Est GFR (African American) 64.8 ml/min; Est GFR (Non-African American) 55.9 ml/min; Magnesium 1.7 mg/dl (1.7-2.4); Phosphorus 3.4 mg/dl (2.5-4.9); Potassium 4.1 mmol/L (3.5-5.1)
--- NOTE | 2023-09-09 08:10 | Hospitalist Progress Note ---
Date of Service September 09, 2023 Assessment & Plan (1) Acute on chronic heart failure with preserved ejection fraction (HFpEF): Plan: Hypoxia Acute HFpEF Moderate to Severe Last echocardiogram 01/2021 revealed LVEF 50%, enlargement of left atrium, LVH, moderately severe to severe aortic stenosis, moderate severe mitral valve insufficiency, moderate to severe tricuspid insufficiency, moderate pulmonic valvular insufficiency, moderate pulmonary hypertension Patient because of fall and facial trauma and found to have acute on chronic CHF currently on lasix 20mg daily s/p flynn i/o appreciate cardiology inputs. Current Echo - Dilated LV with severely reduced LV systolic function. -- LVEF 25% to 30% with severe hypokinesis to akinesis of apex and mid to distal inferior wall, otherwise global hypokinesis. -- Decreased RV systolic function. -- Severe . -- [id number]-uw-smfsdr MR. -- Moderate pulmonary hypertension. Per cardiology - The etiology of her Cardiomyopathy is likely multifactorial -- likely related to Valvular Heart Disease, Tachycardia related to A-Fib, with a probable Ischemic Component. As she has a newly discovered Cardiomyopathy with an LVEF of 25% to 30% -- Propafenone is contraindicated and will be stopped. Recommend the followin. Increase IV Lasix to 40 mg daily. 2. Increase Metoprolol Tartrate to 25 mg b.i.d. 3. Begin Jardiance 10 mg daily. 4. Begin Spironolactone 25 mg daily. 5. Monitor I&O's and daily body weights. 6. Daily BMP +/- serum Mg level. 7. Strict 2 g low sodium diet. If HR becomes an issue off of Propafenone -- recommend titrating her beta fara +/- adding Digoxin. She is not a candidate for anticoagulation due to her fall risk. Fall Acute right nasal fracture was lethargic on presentation . Now alert and awake and siting comfortably. ICE TID discussed with daughter pt not a surgical candidate and would not want any surgical intervention if indicated empiric clindamycin given repeat head CT ok Seen by floral clerk- no intervention at this time can stop antibiotics after 24hrs - abx stopped pt/ot UTI -UA suggestive of UTI (and pt w/ hx of UTI) Ucultx w/ multiple bacteria - will repeat collection - empiric rocephin for now Alzheimer Dementia as per H and p.:per daughter has been worsening, refers to past a lot conversation is even difficult monitor for delirium PAF not on anticoagulation 2/2 fall risk continue metoprolol, propafenone stopped (as above) will monitor Hypothyroidism chronic, stable On levothyroxine HTN holding amlodipine for now due to low normal BP resume when able continue metoprolol - meds managed by cardiology at this time DVT ppx: SCDS 2/2 fall DNR/DNI - Admission and Anticipated Discharge Date Admission Date: September 06, 2023 Subjective Pt seen in follow up of fall, CHF exacerb. Laying in bed in NAD, talking to herself very hard of hearing denies any headache or chest pain or abdominal pain seems comfortable could not get much answers as patient is very hard of hearing and has dementia Pt seen by cardiology as well, medications adjusted Per CM - pt is to return to [facility] after DC Review of Systems Review of Systems: Unobtainable due to cognitive status Physical Exam Physical Exam: General- elderly F in NAD Head- ecchymosis seen ENT-mild nasal swelling Neck- supple Lungs- no wheezing, b/l crackles Heart- irregular rhythm; no murmur, no gallop. Abdomen- normal bowel sounds, soft, nontender, no distension Extremities- no pretibial edema, no erythema seen. Neuro- alert, oriented x 1; no facial palsy; no dysarthria; moves extremities Skin- warm & dry Results & Data Results & Data Vital Signs (Past 12 Hours) Vital Signs Temp Pulse Pulse Resp BP Pulse Ox O2 Del Method 09/09/23 07:50 36.4 C L 102 H 16 122/76 93 Room Air 09/09/23 04:17 109 H 18 115/75 93 Room Air 09/08/23 23:44 89 18 117/55 L 90 Room Air 09/08/23 22:00 113 H 09/08/23 20:59 36.3 C L 111 H 18 106/77 91 Room Air Laboratory Results 09/09/23 09/08/23 09/08/23 Range/Units 05:44 20:00 16:40 WBC 5.29 (4.8-10.8) K/ul RBC 4.39 (4.20-5.40) M/uL Hgb 13.0 (12.0-16.0) g/dl Hct 39.0 (37.0-47.0) % MCV 88.8 (80.0-100.0) fL MCH 29.6 (25.0-34.0) pg MCHC 33.3 (32.0-36.0) g/dL RDW Std Deviation 51.5 H (36.4-46.3) fL RDW Coeff of Charisma 15.5 H (11.5-14.5) % Plt Count 259 (130-400) K/uL MPV 11.2 (9.4-12.4) fL Sodium 135 L (136-145) mmol/L Potassium 4.1 (3.5-5.1) mmol/L Chloride 101 (98-107) mmol/L Carbon Dioxide 27 (21-32) mmol/L Anion Gap 7 (3-11) BUN 22 (6-23) mg/dl Creatinine 0.91 (0.6-1.2) mg/dl Est Cr Clr Drug Dosing 31.5 ml/min Est GFR ( Amer) 64.8 ml/min Est GFR (Non-Af Amer) 55.9 ml/min BUN/Creatinine Ratio 24.2 H (10-20) Glucose 110 H (70-99(Fasting)) mg/dl POC Glucose 123 H 117 H (70-99) mg/dl Estimat Average Glucose mg/dl Hemoglobin A1c (4.5-5.6) % Calcium 9.2 (8.6-10.3) mg/dl Phosphorus 3.4 (2.5-4.9) mg/dl Magnesium 1.7 (1.7-2.4) mg/dl 09/08/23 09/08/23 09/08/23 Range/Units 11:54 08:12 07:20 WBC (4.8-10.8) K/ul RBC (4.20-5.40) M/uL Hgb (12.0-16.0) g/dl Hct (37.0-47.0) % MCV (80.0-100.0) fL MCH (25.0-34.0) pg MCHC (32.0-36.0) g/dL RDW Std Deviation (36.4-46.3) fL RDW Coeff of Charisma (11.5-14.5) % Plt Count (130-400) K/uL MPV (9.4-12.4) fL Sodium 138 (136-145) mmol/L Potassium 3.8 (3.5-5.1) mmol/L Chloride 103 (98-107) mmol/L Carbon Dioxide 27 (21-32) mmol/L Anion Gap 8 (3-11) BUN 24 H (6-23) mg/dl Creatinine 0.92 (0.6-1.2) mg/dl Est Cr Clr Drug Dosing 31.9 ml/min Est GFR ( Amer) 64.0 ml/min Est GFR (Non-Af Amer) 55.2 ml/min BUN/Creatinine Ratio 26.1 H (10-20) Glucose 110 H (70-99(Fasting)) mg/dl POC Glucose 176 H 111 H (70-99) mg/dl Estimat Average Glucose mg/dl Hemoglobin A1c (4.5-5.6) % Calcium 8.9 (8.6-10.3) mg/dl Phosphorus 4.0 (2.5-4.9) mg/dl Magnesium 1.6 L (1.7-2.4) mg/dl 09/08/23 Range/Units 07:14 WBC (4.8-10.8) K/ul RBC (4.20-5.40) M/uL Hgb (12.0-16.0) g/dl Hct (37.0-47.0) % MCV (80.0-100.0) fL MCH (25.0-34.0) pg MCHC (32.0-36.0) g/dL RDW Std Deviation (36.4-46.3) fL RDW Coeff of Charisma (11.5-14.5) % Plt Count (130-400) K/uL MPV (9.4-12.4) fL Sodium (136-145) mmol/L Potassium (3.5-5.1) mmol/L Chloride (98-107) mmol/L Carbon Dioxide (21-32) mmol/L Anion Gap (3-11) BUN (6-23) mg/dl Creatinine (0.6-1.2) mg/dl Est Cr Clr Drug Dosing ml/min Est GFR ( Amer) ml/min Est GFR (Non-Af Amer) ml/min BUN/Creatinine Ratio (10-20) Glucose (70-99(Fasting)) mg/dl POC Glucose (70-99) mg/dl Estimat Average Glucose 174 mg/dl Hemoglobin A1c 7.7 H (4.5-5.6) % Calcium (8.6-10.3) mg/dl Phosphorus (2.5-4.9) mg/dl Magnesium (1.7-2.4) mg/dl Medications Administered Current Inpatient Medications Acetaminophen (Acetaminophen 325 Mg Tab) 650 mg PO Q4H PRN PRN Reason: Pain or Fever Stop: 10/06/23 15:26 Last Admin: 09/09/23 06:19 Dose: 650 mg Al Hydrox/Mg Hydrox/Simethicone (Aluminum/Magnesium Susp 30 Ml Udc) 15 ml PO Q4H PRN PRN Reason: Dyspepsia Stop: 10/06/23 15:26 Dextrose (Dextrose 50% 50 Ml Syringe) 25 - 50 ml IV UD PRN; Protocol PRN Reason: Hypoglycemia Protocol Stop: 10/06/23 15:54 Empagliflozin (Empagliflozin 10 Mg Tab) 10 mg PO DAILY [facility] Stop: 10/08/23 09:29 Last Admin: 09/08/23 10:20 Dose: 10 mg Escitalopram Oxalate (Escitalopram Oxalate 10 Mg Tab) 5 mg PO DAILY [facility] Stop: 10/07/23 08:59 Last Admin: 09/08/23 08:25 Dose: 5 mg Furosemide (Furosemide Inj 20 Mg/2 Ml Vial) 40 mg IV DAILY [facility] Stop: 10/09/23 08:59 Glucagon (Glucagon For Inj 1 Mg Vial) 1 mg SQ UD PRN; Protocol PRN Reason: Hypoglycemia Protocol Stop: 10/06/23 15:54 Glucose (Glucose 10 Tab/Tube) 4 - 8 tab PO UD PRN; Protocol PRN Reason: Hypoglycemia Treatment Stop: 10/06/23 15:54 Glucose (Glucose 40% Gel 15 Gm Tube) 15 - 30 gm PO UD PRN; Protocol PRN Reason: Hypoglycemia Protocol Stop: 10/06/23 15:54 Insulin Aspart (Insulin Aspart Per Unit Charge) 0 units SC ACHS [facility] Stop: 10/06/23 16:29 Last Admin: 09/08/23 20:02 Dose: Not Given Insulin Glargine (Lantus Per Unit Charge) 0 - 5 units SQ BID [facility] Stop: 10/06/23 20:59 Last Admin: 09/08/23 20:02 Dose: Not Given Levothyroxine Sodium (Levothyroxine Sodium 50 Mcg Tablet) 50 mcg PO DAILYBB [facility] Stop: 10/07/23 06:29 Last Admin: 09/09/23 06:20 Dose: 50 mcg Magnesium Hydroxide (Magnesium Hydroxide Susp 30 Ml Udc) 30 ml PO Q12H PRN PRN Reason: Constipation Stop: 10/06/23 15:26 Magnesium Oxide (Magnesium Oxide 400 Mg Tab) 400 mg PO BID [facility] Stop: 10/08/23 09:14 Last Admin: 09/08/23 19:49 Dose: 400 mg Metoprolol Tartrate (Metoprolol Tartrate 25 Mg Tab) 25 mg PO AMHS [facility] Stop: 10/08/23 20:59 Last Admin: 09/08/23 19:50 Dose: 25 mg Miscellaneous (Carbohydrates For Hypoglycemia ) 15 - 30 gm PO UD PRN PRN Reason: Hypoglycemia Protocol Stop: 10/06/23 15:54 Olanzapine (Olanzapine 10 Mg/2.1 Ml Sdv) 2.5 mg IM Q4H PRN PRN Reason: Agitation Stop: 10/06/23 22:59 Pantoprazole Sodium (Pantoprazole 40 Mg Tab) 40 mg PO AMHS [facility] Stop: 10/06/23 20:59 Last Admin: 09/08/23 19:49 Dose: 40 mg Senna/Docusate Sodium (Docusate Sodium/Senna 50/8.6mg Tab) 1 tab PO BID [facility] Stop: 10/06/23 20:59 Last Admin: 09/08/23 19:49 Dose: 1 tab Spironolactone (Spironolactone 25 Mg Tab) 25 mg PO QAM [facility] Stop: 10/08/23 09:29 Last Admin: 09/08/23 10:20 Dose: 25 mg
[2023-09-09] MEDS: LANTUS PER UNIT CHARGE SQ SCH ×2 (08:52→21:27)
[2023-09-09] MEDS: INSULIN ASPART PER UNIT CHARGE SC SCH ×4 (08:53→21:27)
[2023-09-09] MEDS: DOCUSATE SODIUM/SENNA 50/8.6MG TAB PO SCH ×2 (09:15→21:36)
[2023-09-09] MEDS: cefTRIAXone SODIUM 1,000 MG in DEXTROSE 5 % MINI-B 50 ML IV SCH (09:15)
[2023-09-09] MEDS: EMPAGLIFLOZIN 10 MG TAB PO SCH (09:16)
[2023-09-09] MEDS: MAGNESIUM OXIDE 400 MG TAB PO SCH ×2 (09:17→21:35)
[2023-09-09] MEDS: METOPROLOL TARTRATE 25 MG TAB PO SCH ×2 (09:17→21:36)
[2023-09-09] MEDS: PANTOprazole 40 MG TAB PO SCH ×2 (09:18→21:36)
[2023-09-09] MEDS: SPIRONOLACTONE 25 MG TAB PO SCH (09:18)
[2023-09-09] MEDS: ESCITALOPRAM OXALATE 10 MG TAB PO SCH (09:26)
[2023-09-09] MEDS: FUROSEMIDE INJ 20 MG/2 ML VIAL IV SCH (09:26)
[2023-09-09 10:41] LABS: Appearance Urine Clear (Clear); Bacteria Urine Automated 2+ (Negative); Bilirubin Urine Negative (Negative); Blood Urine Trace (Negative); Cast Urine Automated 0 /lpf (0-5); Color Urine Yellow; Glucose Urine UA 1+ (Negative); Ketones Urine Negative (Negative); Leukocyte Esterase Urine Trace (Negative); Nitrite Urine Negative (Negative); Protein Urine Negative (Negative); RBC Urine Automated 0-4 /hpf (0-4); Specific Gravity Urine 1.007 (1.000-1.030); Urobilinogen Urine Negative (Negative)
[2023-09-10] MEDS: ACETAMINOPHEN 325 MG TAB PO PRN (02:03)
[2023-09-10] MEDS ORDERED: ACETAMINOPHEN 1,000 MG/100 ML VIAL IV STA (02:24)
[2023-09-10] MEDS: LEVOTHYROXINE SODIUM 50 MCG TABLET PO SCH (05:34)
[2023-09-10 06:42] LABS: BUN Creatinine Ratio 18.5 (10-20); Calcium 9.4 mg/dl (8.6-10.3); Creatinine Clr Calc Pharmacy 24.8 ml/min; Est GFR (African American) 52.7 ml/min; Est GFR (Non-African American) 45.5 ml/min; Magnesium 1.8 mg/dl (1.7-2.4); Phosphorus 3.4 mg/dl (2.5-4.9); Potassium 4.1 mmol/L (3.5-5.1)
[2023-09-10] MEDS: ESCITALOPRAM OXALATE 10 MG TAB PO SCH (07:41)
[2023-09-10] MEDS: EMPAGLIFLOZIN 10 MG TAB PO SCH (07:41)
[2023-09-10] MEDS: MAGNESIUM OXIDE 400 MG TAB PO SCH ×2 (07:41→21:47)
[2023-09-10] MEDS: METOPROLOL TARTRATE 25 MG TAB PO SCH ×2 (07:41→22:50)
[2023-09-10] MEDS: DOCUSATE SODIUM/SENNA 50/8.6MG TAB PO SCH ×2 (07:41→21:47)
[2023-09-10] MEDS: PANTOprazole 40 MG TAB PO SCH ×2 (07:42→21:47)
[2023-09-10] MEDS: SPIRONOLACTONE 25 MG TAB PO SCH (07:42)
[2023-09-10] MEDS: cefTRIAXone SODIUM 1,000 MG in DEXTROSE 5 % MINI-B 50 ML IV SCH (08:12)
[2023-09-10] MEDS: INSULIN ASPART PER UNIT CHARGE SC SCH ×4 (08:13→21:47)
[2023-09-10] MEDS: LANTUS PER UNIT CHARGE SQ SCH ×2 (08:13→21:47)
[2023-09-10] MEDS: FUROSEMIDE INJ 20 MG/2 ML VIAL IV SCH (08:13)
--- NOTE | 2023-09-10 08:19 | Hospitalist Progress Note ---
Date of Service September 10, 2023 Assessment & Plan (1) Acute on chronic heart failure with preserved ejection fraction (HFpEF): Plan: Hypoxia Acute HFpEF Moderate to Severe Last echocardiogram 01/2021 revealed LVEF 50%, enlargement of left atrium, LVH, moderately severe to severe aortic stenosis, moderate severe mitral valve insufficiency, moderate to severe tricuspid insufficiency, moderate pulmonic valvular insufficiency, moderate pulmonary hypertension Patient because of fall and facial trauma and found to have acute on chronic CHF currently on lasix 20mg daily s/p flynn i/o appreciate cardiology inputs. Current Echo - Dilated LV with severely reduced LV systolic function. -- LVEF 25% to 30% with severe hypokinesis to akinesis of apex and mid to distal inferior wall, otherwise global hypokinesis. -- Decreased RV systolic function. -- Severe . -- [id number] MR. -- Moderate pulmonary hypertension. Per cardiology - The etiology of her Cardiomyopathy is likely multifactorial -- likely related to Valvular Heart Disease, Tachycardia related to A-Fib, with a probable Ischemic Component. As she has a newly discovered Cardiomyopathy with an LVEF of 25% to 30% -- Propafenone is contraindicated and will be stopped. Recommend the followin. Increase IV Lasix to 40 mg daily. 2. Increase Metoprolol Tartrate to 25 mg b.i.d. 3. Begin Jardiance 10 mg daily. 4. Begin Spironolactone 25 mg daily. 5. Monitor I&O's and daily body weights. 6. Daily BMP +/- serum Mg level. 7. Strict 2 g low sodium diet. If HR becomes an issue off of Propafenone -- recommend titrating her beta fara +/- adding Digoxin. She is not a candidate for anticoagulation due to her fall risk. 09/10 Pt is laying flat in bed on RA, singing, on RA. BP lower and HR elevated. Discussed w/ cardiology - starting digoxin and put furosemide on hold. Fall Acute right nasal fracture was lethargic on presentation . Now alert and awake. ICE TID discussed with daughter pt not a surgical candidate and would not want any surgical intervention if indicated empiric clindamycin given repeat head CT ok Seen by electoral officer- no intervention at this time can stop antibiotics after 24hrs - abx stopped pt/ot UTI -UA suggestive of UTI (and pt w/ hx of UTI) Ucultx w/ multiple bacteria - repeated collection - Gram negat. bacilli - empiric rocephin for now Alzheimer Dementia as per H and p.:per daughter has been worsening, refers to past a lot conversation is even difficult monitor for delirium PAF not on anticoagulation 2/2 fall risk continue metoprolol, propafenone stopped (as above) will monitor Hypothyroidism chronic, stable On levothyroxine HTN holding amlodipine for now due to low normal BP resume when able continue metoprolol - meds managed by cardiology at this time DVT ppx: SCDS 2/2 fall DNR/DNI - Admission and Anticipated Discharge Date Admission Date: September 06, 2023 Subjective Pt seen in follow up of fall, CHF exacerb. Laying in bed in NAD, talking to herself, and singing very hard of hearing denies any headache or chest pain or abdominal pain seems comfortable could not get much answers as patient is very hard of hearing and has dementia Pt seen by cardiology as well, medications adjusted Per CM - pt is to return to [facility] after DC Discussed w/ cardiology today as BP lower and HR up. Started on digoxin. lasix on hold Review of Systems Review of Systems: All systems reviewed & are unremarkable except as noted in Subjective Physical Exam Physical Exam: General- elderly F in NAD Head- ecchymosis seen ENT-mild nasal swelling Neck- supple Lungs- no wheezing, b/l crackles Heart- irregular rhythm; no murmur, no gallop. Abdomen- normal bowel sounds, soft, nontender, no distension Extremities- no pretibial edema, no erythema seen. Neuro- alert, oriented x 1; no facial palsy; no dysarthria; moves extremities Skin- warm & dry Results & Data Results & Data Vital Signs (Past 12 Hours) Vital Signs Temp Pulse Pulse Resp BP Pulse Ox O2 Del Method 09/10/23 07:49 36.4 C L 69 20 118/67 93 Room Air 09/10/23 03:19 36.0 C L 65 16 136/56 L 96 Room Air 09/09/23 23:31 36.4 C L 69 16 120/74 91 Room Air 09/09/23 22:36 101 H Laboratory Results 09/10/23 09/10/23 09/09/23 Range/Units 08:06 05:46 20:08 Sodium 135 L (136-145) mmol/L Potassium 4.1 (3.5-5.1) mmol/L Chloride 98 (98-107) mmol/L Carbon Dioxide 28 (21-32) mmol/L Anion Gap 9 (3-11) BUN 20 (6-23) mg/dl Creatinine 1.08 (0.6-1.2) mg/dl Est Cr Clr Drug Dosing 24.8 ml/min Est GFR ( Amer) 52.7 ml/min Est GFR (Non-Af Amer) 45.5 ml/min BUN/Creatinine Ratio 18.5 (10-20) Glucose 89 (70-99(Fasting)) mg/dl POC Glucose 86 99 (70-99) mg/dl Calcium 9.4 (8.6-10.3) mg/dl Phosphorus 3.4 (2.5-4.9) mg/dl Magnesium 1.8 (1.7-2.4) mg/dl Urine Color Urine Appearance (Clear) Urine pH (4.5-7.5) Ur Specific [place] (1.000-1.030) Urine Protein (Negative) Urine Glucose (UA) (Negative) Urine Ketones (Negative) Urine Blood (Negative) Urine Nitrite (Negative) Urine Bilirubin (Negative) Urine Urobilinogen (Negative) Ur Leukocyte Esterase (Negative) Urine WBC (Auto) (0-5) /hpf Urine RBC (Auto) (0-4) /hpf U Hyaline Cast (Auto) (0-5) /lpf U Epithel Cells (Auto) (0-5) /lpf Urine Bacteria (Auto) (Negative) 09/09/23 09/09/23 09/09/23 Range/Units 17:11 12:22 10:15 Sodium (136-145) mmol/L Potassium (3.5-5.1) mmol/L Chloride (98-107) mmol/L Carbon Dioxide (21-32) mmol/L Anion Gap (3-11) BUN (6-23) mg/dl Creatinine (0.6-1.2) mg/dl Est Cr Clr Drug Dosing ml/min Est GFR ( Amer) ml/min Est GFR (Non-Af Amer) ml/min BUN/Creatinine Ratio (10-20) Glucose (70-99(Fasting)) mg/dl POC Glucose 99 121 H (70-99) mg/dl Calcium (8.6-10.3) mg/dl Phosphorus (2.5-4.9) mg/dl Magnesium (1.7-2.4) mg/dl Urine Color Yellow Urine Appearance Clear (Clear) Urine pH 7.0 (4.5-7.5) Ur Specific [place] 1.007 (1.000-1.030) Urine Protein Negative (Negative) Urine Glucose (UA) 1+ H (Negative) Urine Ketones Negative (Negative) Urine Blood Trace H (Negative) Urine Nitrite Negative (Negative) Urine Bilirubin Negative (Negative) Urine Urobilinogen Negative (Negative) Ur Leukocyte Esterase Trace H (Negative) Urine WBC (Auto) 5-10 H (0-5) /hpf Urine RBC (Auto) 0-4 (0-4) /hpf U Hyaline Cast (Auto) 0 (0-5) /lpf U Epithel Cells (Auto) 5-10 H (0-5) /lpf Urine Bacteria (Auto) 2+ H (Negative) 09/09/23 Range/Units 08:15 Sodium (136-145) mmol/L Potassium (3.5-5.1) mmol/L Chloride (98-107) mmol/L Carbon Dioxide (21-32) mmol/L Anion Gap (3-11) BUN (6-23) mg/dl Creatinine (0.6-1.2) mg/dl Est Cr Clr Drug Dosing ml/min Est GFR ( Amer) ml/min Est GFR (Non-Af Amer) ml/min BUN/Creatinine Ratio (10-20) Glucose (70-99(Fasting)) mg/dl POC Glucose 106 H (70-99) mg/dl Calcium (8.6-10.3) mg/dl Phosphorus (2.5-4.9) mg/dl Magnesium (1.7-2.4) mg/dl Urine Color Urine Appearance (Clear) Urine pH (4.5-7.5) Ur Specific [place] (1.000-1.030) Urine Protein (Negative) Urine Glucose (UA) (Negative) Urine Ketones (Negative) Urine Blood (Negative) Urine Nitrite (Negative) Urine Bilirubin (Negative) Urine Urobilinogen (Negative) Ur Leukocyte Esterase (Negative) Urine WBC (Auto) (0-5) /hpf Urine RBC (Auto) (0-4) /hpf U Hyaline Cast (Auto) (0-5) /lpf U Epithel Cells (Auto) (0-5) /lpf Urine Bacteria (Auto) (Negative) Medications Administered Current Inpatient Medications Acetaminophen (Acetaminophen 325 Mg Tab) 650 mg PO Q4H PRN PRN Reason: Pain or Fever Stop: 10/06/23 15:26 Last Admin: 09/09/23 06:19 Dose: 650 mg Al Hydrox/Mg Hydrox/Simethicone (Aluminum/Magnesium Susp 30 Ml Udc) 15 ml PO Q4H PRN PRN Reason: Dyspepsia Stop: 10/06/23 15:26 Dextrose (Dextrose 50% 50 Ml Syringe) 25 - 50 ml IV UD PRN; Protocol PRN Reason: Hypoglycemia Protocol Stop: 10/06/23 15:54 Empagliflozin (Empagliflozin 10 Mg Tab) 10 mg PO DAILY [facility] Stop: 10/08/23 09:29 Last Admin: 09/10/23 07:41 Dose: Not Given Escitalopram Oxalate (Escitalopram Oxalate 10 Mg Tab) 5 mg PO DAILY [facility] Stop: 10/07/23 08:59 Last Admin: 09/10/23 07:41 Dose: Not Given Furosemide (Furosemide Inj 20 Mg/2 Ml Vial) 40 mg IV DAILY [facility] Stop: 10/09/23 08:59 Last Admin: 09/10/23 08:13 Dose: 40 mg Glucagon (Glucagon For Inj 1 Mg Vial) 1 mg SQ UD PRN; Protocol PRN Reason: Hypoglycemia Protocol Stop: 10/06/23 15:54 Glucose (Glucose 10 Tab/Tube) 4 - 8 tab PO UD PRN; Protocol PRN Reason: Hypoglycemia Treatment Stop: 10/06/23 15:54 Glucose (Glucose 40% Gel 15 Gm Tube) 15 - 30 gm PO UD PRN; Protocol PRN Reason: Hypoglycemia Protocol Stop: 10/06/23 15:54 Ceftriaxone Sodium 1,000 mg/ (Dextrose) 50 mls @ 100 mls/hr IV Q24H [facility]; Protocol Stop: 09/14/23 08:59 Last Admin: 09/10/23 08:12 Dose: 100 mls/hr Insulin Aspart (Insulin Aspart Per Unit Charge) 0 units SC ACHS [facility] Stop: 10/06/23 16:29 Last Admin: 09/10/23 08:13 Dose: Not Given Insulin Glargine (Lantus Per Unit Charge) 0 - 5 units SQ BID [facility] Stop: 10/06/23 20:59 Last Admin: 09/10/23 08:13 Dose: Not Given Levothyroxine Sodium (Levothyroxine Sodium 50 Mcg Tablet) 50 mcg PO [facility] Stop: 10/07/23 06:29 Last Admin: 09/10/23 05:34 Dose: Not Given Magnesium Hydroxide (Magnesium Hydroxide Susp 30 Ml Udc) 30 ml PO Q12H PRN PRN Reason: Constipation Stop: 10/06/23 15:26 Magnesium Oxide (Magnesium Oxide 400 Mg Tab) 400 mg PO BID [facility] Stop: 10/08/23 09:14 Last Admin: 09/10/23 07:41 Dose: Not Given Metoprolol Tartrate (Metoprolol Tartrate 25 Mg Tab) 25 mg PO [facility] Stop: 10/08/23 20:59 Last Admin: 09/10/23 07:41 Dose: Not Given Miscellaneous (Carbohydrates For Hypoglycemia ) 15 - 30 gm PO UD PRN PRN Reason: Hypoglycemia Protocol Stop: 10/06/23 15:54 Olanzapine (Olanzapine 10 Mg/2.1 Ml Sdv) 2.5 mg IM Q4H PRN PRN Reason: Agitation Stop: 10/06/23 22:59 Pantoprazole Sodium (Pantoprazole 40 Mg Tab) 40 mg PO [facility] Stop: 10/06/23 20:59 Last Admin: 09/10/23 07:42 Dose: Not Given Senna/Docusate Sodium (Docusate Sodium/Senna 50/8.6mg Tab) 1 tab PO BID [facility] Stop: 10/06/23 20:59 Last Admin: 09/10/23 07:41 Dose: Not Given Spironolactone (Spironolactone 25 Mg Tab) 25 mg PO [facility]AM [facility] Stop: 10/08/23 09:29 Last Admin: 09/10/23 07:42 Dose: Not Given
[2023-09-10] MEDS ORDERED: DIGOXIN 250 MCG in SYRINGE 9 ML IV ONE (15:00)
[2023-09-10] MEDS ORDERED: SODIUM CHLORIDE 0.9% 500 ML IV SCH (18:30)
[2023-09-10] MEDS: D5W AND NSS 1,000 ML IV SCH (21:24)
[2023-09-11] MEDS: LEVOTHYROXINE SODIUM 50 MCG TABLET PO SCH (05:53)
[2023-09-11 06:38] LABS: BUN Creatinine Ratio 18.8 (10-20); Calcium 9.3 mg/dl (8.6-10.3); Creatinine Clr Calc Pharmacy 30.7 ml/min; Est GFR (African American) 70.4 ml/min; Est GFR (Non-African American) 60.7 ml/min; Magnesium 1.8 mg/dl (1.7-2.4); Phosphorus 3.1 mg/dl (2.5-4.9); Potassium 3.8 mmol/L (3.5-5.1)
[2023-09-11] MEDS: cefTRIAXone SODIUM 1,000 MG in DEXTROSE 5 % MINI-B 50 ML IV SCH (07:57)
[2023-09-11] MEDS: ESCITALOPRAM OXALATE 10 MG TAB PO SCH ×2 (07:59→10:35)
[2023-09-11] MEDS: PANTOprazole 40 MG TAB PO SCH ×3 (08:00→20:51)
[2023-09-11] MEDS: MAGNESIUM OXIDE 400 MG TAB PO SCH ×3 (08:00→20:51)
[2023-09-11] MEDS: EMPAGLIFLOZIN 10 MG TAB PO SCH ×2 (08:00→10:35)
[2023-09-11] MEDS: METOPROLOL TARTRATE 25 MG TAB PO SCH ×3 (08:01→20:51)
[2023-09-11] MEDS: DOCUSATE SODIUM/SENNA 50/8.6MG TAB PO SCH ×3 (08:03→20:51)
[2023-09-11] MEDS: D5W AND NSS 1,000 ML IV SCH (10:18)
[2023-09-11] MEDS: INSULIN ASPART PER UNIT CHARGE SC SCH ×4 (10:35→21:16)
[2023-09-11] MEDS: LANTUS PER UNIT CHARGE SQ SCH ×2 (10:36→21:17)
[2023-09-11] MEDS: METOPROLOL TARTRATE 1 MG/ML VIAL IV PRN ×2 (10:43→20:51)
[2023-09-11] MEDS: DIGOXIN 0.125 MG TAB PO SCH ×2 (16:41→16:43)
--- NOTE | 2023-09-11 18:21 | Hospitalist Progress Note ---
Date of Service September 11, 2023 Assessment & Plan (1) Acute on chronic heart failure with preserved ejection fraction (HFpEF): Plan: Hypoxia Acute HFpEF Moderate to Severe Last echocardiogram 01/2021 revealed LVEF 50%, enlargement of left atrium, LVH, moderately severe to severe aortic stenosis, moderate severe mitral valve insufficiency, moderate to severe tricuspid insufficiency, moderate pulmonic valvular insufficiency, moderate pulmonary hypertension Patient because of fall and facial trauma and found to have acute on chronic CHF currently on lasix 20mg daily s/p flynn i/o appreciate cardiology inputs. Current Echo - Dilated LV with severely reduced LV systolic function. -- LVEF 25% to 30% with severe hypokinesis to akinesis of apex and mid to distal inferior wall, otherwise global hypokinesis. -- Decreased RV systolic function. -- Severe . -- [id number] MR. -- Moderate pulmonary hypertension. Per cardiology - The etiology of her Cardiomyopathy is likely multifactorial -- likely related to Valvular Heart Disease, Tachycardia related to A-Fib, with a probable Ischemic Component. As she has a newly discovered Cardiomyopathy with an LVEF of 25% to 30% -- Propafenone is contraindicated and will be stopped. Recommend the followin. Increase IV Lasix to 40 mg daily. 2. Increase Metoprolol Tartrate to 25 mg b.i.d. 3. Begin Jardiance 10 mg daily. 4. Begin Spironolactone 25 mg daily. 5. Monitor I&O's and daily body weights. 6. Daily BMP +/- serum Mg level. 7. Strict 2 g low sodium diet. If HR becomes an issue off of Propafenone -- recommend titrating her beta fara +/- adding Digoxin. She is not a candidate for anticoagulation due to her fall risk. 09/10 Pt is laying flat in bed on RA, singing, on RA. BP lower and HR elevated. Discussed w/ cardiology - starting digoxin and put furosemide on hold. 09/11 Refusing PO metoprolol and tachycardic. Giving 2.5 IV metoprolol today. Will try to give PO later. BP low yesterday and overnight - gave gentle fluids back, holding lasix. Fall Acute right nasal fracture was lethargic on presentation . Now alert and awake. ICE TID discussed with daughter pt not a surgical candidate and would not want any surgical intervention if indicated empiric clindamycin given repeat head CT ok Seen by owner oral surgeon- no intervention at this time can stop antibiotics after 24hrs - abx stopped pt/ot UTI -UA suggestive of UTI (and pt w/ hx of UTI) Ucultx w/ multiple bacteria - repeated collection - Gram negat. bacilli - empiric rocephin for now Alzheimer Dementia as per H and p.:per daughter has been worsening, refers to past a lot conversation is even difficult monitor for delirium PAF not on anticoagulation 2/2 fall risk continue metoprolol, propafenone stopped (as above) will monitor Hypothyroidism chronic, stable On levothyroxine HTN holding amlodipine for now due to low normal BP resume when able continue metoprolol - meds managed by cardiology at this time DVT ppx: SCDS 2/2 fall DNR/DNI - Admission and Anticipated Discharge Date Admission Date: September 06, 2023 Subjective Pt seen in follow up of fall, CHF exacerb. Laying in bed in NAD, talking to herself, and singing very hard of hearing denies any headache or chest pain or abdominal pain seems comfortable could not get much answers as patient is very hard of hearing and has dementia Pt seen by cardiology as well, medications adjusted Per CM - pt is to return to [facility] after DC Pt refusing oral metoprolol. tachycardic again this AM - giving 2.5 IV metoprolol - also started on digoxin yesterday. Received IVF yesterday/ overnight which improved HR. Review of Systems Review of Systems: All systems reviewed & are unremarkable except as noted in Subjective Physical Exam Physical Exam: General- elderly F in NAD Head- ecchymosis seen ENT-mild nasal swelling Neck- supple Lungs- no wheezing, b/l crackles Heart- irregular rhythm; no murmur, no gallop. Abdomen- normal bowel sounds, soft, nontender, no distension Extremities- no pretibial edema, no erythema seen. Neuro- alert, oriented x 1; no facial palsy; no dysarthria; moves extremities Skin- warm & dry Results & Data Results & Data Vital Signs (Past 12 Hours) Vital Signs Temp Pulse Pulse Resp BP Pulse Ox O2 Del Method 09/11/23 15:40 77 18 106/63 99 Room Air 09/11/23 15:14 98 H 09/11/23 11:39 98 H 09/11/23 11:23 36.6 C 85 18 128/70 95 Room Air 09/11/23 10:43 125 H 09/11/23 07:37 92 H 09/11/23 07:32 36.5 C 131 H 18 132/79 95 Room Air Laboratory Results 09/11/23 09/11/23 09/11/23 Range/Units 17:21 12:23 07:37 Sodium (136-145) mmol/L Potassium (3.5-5.1) mmol/L Chloride (98-107) mmol/L Carbon Dioxide (21-32) mmol/L Anion Gap (3-11) BUN (6-23) mg/dl Creatinine (0.6-1.2) mg/dl Est Cr Clr Drug Dosing ml/min Est GFR ( Amer) ml/min Est GFR (Non-Af Amer) ml/min BUN/Creatinine Ratio (10-20) Glucose (70-99(Fasting)) mg/dl POC Glucose 245 H 176 H 103 H (70-99) mg/dl Calcium (8.6-10.3) mg/dl Phosphorus (2.5-4.9) mg/dl Magnesium (1.7-2.4) mg/dl 09/11/23 09/10/23 Range/Units 05:38 20:25 Sodium 136 (136-145) mmol/L Potassium 3.8 (3.5-5.1) mmol/L Chloride 101 (98-107) mmol/L Carbon Dioxide 25 (21-32) mmol/L Anion Gap 10 (3-11) BUN 16 (6-23) mg/dl Creatinine 0.85 (0.6-1.2) mg/dl Est Cr Clr Drug Dosing 30.7 ml/min Est GFR ( Amer) 70.4 ml/min Est GFR (Non-Af Amer) 60.7 ml/min BUN/Creatinine Ratio 18.8 (10-20) Glucose 93 (70-99(Fasting)) mg/dl POC Glucose 78 (70-99) mg/dl Calcium 9.3 (8.6-10.3) mg/dl Phosphorus 3.1 (2.5-4.9) mg/dl Magnesium 1.8 (1.7-2.4) mg/dl Medications Administered Current Inpatient Medications Acetaminophen (Acetaminophen 325 Mg Tab) 650 mg PO Q4H PRN PRN Reason: Pain or Fever Stop: 10/06/23 15:26 Last Admin: 09/09/23 06:19 Dose: 650 mg Al Hydrox/Mg Hydrox/Simethicone (Aluminum/Magnesium Susp 30 Ml Udc) 15 ml PO Q4H PRN PRN Reason: Dyspepsia Stop: 10/06/23 15:26 Dextrose (Dextrose 50% 50 Ml Syringe) 25 - 50 ml IV UD PRN; Protocol PRN Reason: Hypoglycemia Protocol Stop: 10/06/23 15:54 Digoxin (Digoxin 0.125 Mg Tab) 0.125 mg PO DAILY@1600 [facility] Stop: 10/11/23 15:59 Last Admin: 09/11/23 16:43 Dose: Not Given Empagliflozin (Empagliflozin 10 Mg Tab) 10 mg PO DAILY [facility] Stop: 10/08/23 09:29 Last Admin: 09/11/23 10:35 Dose: Not Given Escitalopram Oxalate (Escitalopram Oxalate 10 Mg Tab) 5 mg PO DAILY [facility] Stop: 10/07/23 08:59 Last Admin: 09/11/23 10:35 Dose: Not Given Glucagon (Glucagon For Inj 1 Mg Vial) 1 mg SQ UD PRN; Protocol PRN Reason: Hypoglycemia Protocol Stop: 10/06/23 15:54 Glucose (Glucose 10 Tab/Tube) 4 - 8 tab PO UD PRN; Protocol PRN Reason: Hypoglycemia Treatment Stop: 10/06/23 15:54 Glucose (Glucose 40% Gel 15 Gm Tube) 15 - 30 gm PO UD PRN; Protocol PRN Reason: Hypoglycemia Protocol Stop: 10/06/23 15:54 Ceftriaxone Sodium 1,000 mg/ (Dextrose) 50 mls @ 100 mls/hr IV Q24H [facility]; Protocol Stop: 09/14/23 08:59 Last Infusion: 09/11/23 12:04 Dose: Infused Dextrose/Sodium Chloride (D5w And Nss) 1,000 mls @ 75 mls/hr IV .[id number] [facility] Stop: 10/10/23 20:59 Last Admin: 09/11/23 10:18 Dose: 75 mls/hr Insulin Aspart (Insulin Aspart Per Unit Charge) 0 units SC ACHS [facility] Stop: 10/06/23 16:29 Last Admin: 09/11/23 17:23 Dose: Not Given Insulin Glargine (Lantus Per Unit Charge) 0 - 5 units SQ BID [facility] Stop: 10/06/23 20:59 Last Admin: 09/11/23 10:36 Dose: Not Given Levothyroxine Sodium (Levothyroxine Sodium 50 Mcg Tablet) 50 mcg PO DAILYBB [facility] Stop: 10/07/23 06:29 Last Admin: 09/11/23 05:53 Dose: Not Given Magnesium Hydroxide (Magnesium Hydroxide Susp 30 Ml Udc) 30 ml PO Q12H PRN PRN Reason: Constipation Stop: 10/06/23 15:26 Magnesium Oxide (Magnesium Oxide 400 Mg Tab) 400 mg PO BID [facility] Stop: 10/08/23 09:14 Last Admin: 09/11/23 10:37 Dose: Not Given Metoprolol Tartrate (Metoprolol Tartrate 25 Mg Tab) 25 mg PO [facility] Stop: 10/08/23 20:59 Last Admin: 09/11/23 10:37 Dose: Not Given Metoprolol Tartrate (Metoprolol Tartrate 1 Mg/Ml Vial) 2.5 mg IV Q6 PRN PRN Reason: Tachycardia Stop: 10/11/23 00:00 Last Admin: 09/11/23 10:43 Dose: 2.5 mg Miscellaneous (Carbohydrates For Hypoglycemia ) 15 - 30 gm PO UD PRN PRN Reason: Hypoglycemia Protocol Stop: 10/06/23 15:54 Olanzapine (Olanzapine 10 Mg/2.1 Ml Sdv) 2.5 mg IM Q4H PRN PRN Reason: Agitation Stop: 10/06/23 22:59 Pantoprazole Sodium (Pantoprazole 40 Mg Tab) 40 mg PO [facility] Stop: 10/06/23 20:59 Last Admin: 09/11/23 10:37 Dose: Not Given Senna/Docusate Sodium (Docusate Sodium/Senna 50/8.6mg Tab) 1 tab PO BID [facility] Stop: 10/06/23 20:59 Last Admin: 09/11/23 10:35 Dose: Not Given Spironolactone (Spironolactone 25 Mg Tab) 25 mg PO QAM [facility] Stop: 10/08/23 09:29 Last Admin: 09/10/23 07:42 Dose: Not Given
[2023-09-12] MEDS: METOPROLOL TARTRATE 1 MG/ML VIAL IV PRN ×2 (03:53→22:28)
[2023-09-12 06:38] LABS: Hematocrit (blood only) 39.8 % (37.0-47.0); Hemoglobin 13.2 g/dl (12.0-16.0); Mean Corpuscular Hemoglobin 29.7 pg (25.0-34.0); Mean Corpuscular Hgb Conc 33.2 g/dL (32.0-36.0); Mean Corpuscular Volume 89.4 fL (80.0-100.0); Mean Platelet Volume 11.1 fL (9.4-12.4); Platelet Count 260 K/uL (130-400); RDW Coefficient of Variation 15.3 % (11.5-14.5); RDW Standard Deviation 49.9 fL (36.4-46.3); Red Blood Count 4.45 M/uL (4.20-5.40); White Blood Count 6.31 K/ul (4.8-10.8)
[2023-09-12] MEDS ORDERED: METOPROLOL TARTRATE 1 MG/ML VIAL IV STA (06:42)
[2023-09-12] MEDS: LEVOTHYROXINE SODIUM 50 MCG TABLET PO SCH (06:46)
[2023-09-12 06:50] LABS: BUN Creatinine Ratio 16.4 (10-20); Calcium 9.4 mg/dl (8.6-10.3); Creatinine Clr Calc Pharmacy 37.2 ml/min; Est GFR (African American) 84.6 ml/min; Magnesium 1.8 mg/dl (1.7-2.4); Phosphorus 2.7 mg/dl (2.5-4.9); Potassium 4.1 mmol/L (3.5-5.1)
[2023-09-12 07:19] LABS: Troponin I High Sensitivity 24.8 pg/ml (0-14)
[2023-09-12] MEDS: cefTRIAXone SODIUM 1,000 MG in DEXTROSE 5 % MINI-B 50 ML IV SCH (08:00)
[2023-09-12] MEDS: METOPROLOL TARTRATE 25 MG TAB PO SCH ×2 (08:03→22:32)
[2023-09-12] MEDS: EMPAGLIFLOZIN 10 MG TAB PO SCH (08:05)
[2023-09-12] MEDS: ESCITALOPRAM OXALATE 10 MG TAB PO SCH (08:05)
[2023-09-12] MEDS: PANTOprazole 40 MG TAB PO SCH ×2 (08:05→22:32)
[2023-09-12] MEDS: MAGNESIUM OXIDE 400 MG TAB PO SCH ×2 (08:05→22:32)
[2023-09-12] MEDS: DOCUSATE SODIUM/SENNA 50/8.6MG TAB PO SCH ×2 (08:10→22:32)
--- NOTE | 2023-09-12 08:16 | Hospitalist Progress Note ---
Date of Service September 12, 2023 Assessment & Plan (1) Acute on chronic heart failure with preserved ejection fraction (HFpEF): Plan: Hypoxia Acute HFpEF Moderate to Severe Last echocardiogram 01/2021 revealed LVEF 50%, enlargement of left atrium, LVH, moderately severe to severe aortic stenosis, moderate severe mitral valve insufficiency, moderate to severe tricuspid insufficiency, moderate pulmonic valvular insufficiency, moderate pulmonary hypertension Patient because of fall and facial trauma and found to have acute on chronic CHF currently on lasix 20mg daily s/p flynn i/o appreciate cardiology inputs. Current Echo - Dilated LV with severely reduced LV systolic function. -- LVEF 25% to 30% with severe hypokinesis to akinesis of apex and mid to distal inferior wall, otherwise global hypokinesis. -- Decreased RV systolic function. -- Severe . -- [id number] MR. -- Moderate pulmonary hypertension. Per cardiology - The etiology of her Cardiomyopathy is likely multifactorial -- likely related to Valvular Heart Disease, Tachycardia related to A-Fib, with a probable Ischemic Component. As she has a newly discovered Cardiomyopathy with an LVEF of 25% to 30% -- Propafenone is contraindicated and will be stopped. Recommend the followin. Increase IV Lasix to 40 mg daily. 2. Increase Metoprolol Tartrate to 25 mg b.i.d. 3. Begin Jardiance 10 mg daily. 4. Begin Spironolactone 25 mg daily. 5. Monitor I&O's and daily body weights. 6. Daily BMP +/- serum Mg level. 7. Strict 2 g low sodium diet. If HR becomes an issue off of Propafenone -- recommend titrating her beta fara +/- adding Digoxin. She is not a candidate for anticoagulation due to her fall risk. 09/10 Pt is laying flat in bed on RA, singing, on RA. BP lower and HR elevated. Discussed w/ cardiology - starting digoxin and put furosemide on hold. 09/11 Refusing PO metoprolol and tachycardic. Giving 2.5 IV metoprolol today. Will try to give PO later. BP low yesterday and overnight - gave gentle fluids back, holding lasix. 09/12 not taking PO metoprolol or digoxin. Had chest pain overnight was in afib w/ RVR, received iv metoprolol. Currently laying flat in bed singing, comfortable. Will also repeat CXR to edyta from previous, as she received IVF. Fall Acute right nasal fracture was lethargic on presentation . Now alert and awake. ICE TID discussed with daughter pt not a surgical candidate and would not want any surgical intervention if indicated empiric clindamycin given repeat head CT ok Seen by behavioral geneticist- no intervention at this time can stop antibiotics after 24hrs - abx stopped pt/ot UTI -UA suggestive of UTI (and pt w/ hx of UTI) Ucultx w/ multiple bacteria - repeated collection - Gram negat. bacilli -> Proteus mirabillis - cont. rocephin Alzheimer Dementia as per H and p.:per daughter has been worsening, refers to past a lot conversation is even difficult monitor for delirium PAF not on anticoagulation 2/2 fall risk continue metoprolol, propafenone stopped (as above) will monitor Hypothyroidism chronic, stable On levothyroxine HTN holding amlodipine for now due to low normal BP resume when able continue metoprolol - meds managed by cardiology at this time DVT ppx: SCDS 2/2 fall DNR/DNI - Admission and Anticipated Discharge Date Admission Date: September 06, 2023 Subjective Pt seen in follow up of fall, CHF exacerb. Laying in bed in NAD, talking to herself, and singing, pleasantly confused very hard of hearing denies any headache or chest pain or abdominal pain seems comfortable could not get much answers as patient is very hard of hearing and has dementia Pt seen by cardiology as well, medications adjusted Per CM - pt is to return to [facility] after DC Pt was refusing oral metoprolol. on and off tachycardic, requires IV metoprolol prn - also started on digoxin on wednesday as BP low and HR elevated (oral med does not take). also Received IVF which improved BP and HR. Had chest pain overnight, received iv metoprolol. Currently laying flat in bed and comfortable again. CXR also obtained to [facility] from previous. Review of Systems Review of Systems: All systems reviewed & are unremarkable except as noted in Subjective Physical Exam Physical Exam: General- elderly F in NAD Head- ecchymosis seen ENT-mild nasal swelling Neck- supple Lungs- no wheezing, b/l crackles Heart- irregular rhythm; no murmur, no gallop. Abdomen- normal bowel sounds, soft, nontender, no distension Extremities- no pretibial edema, no erythema seen. Neuro- alert, oriented x 1; no facial palsy; no dysarthria; moves extremities Skin- warm & dry Results & Data Results & Data Vital Signs (Past 12 Hours) Vital Signs Temp Pulse Pulse Resp BP BP Pulse Ox 09/12/23 08:10 89 126/83 09/12/23 07:27 36.5 C 91 H 18 126/83 93 09/12/23 06:19 130 H 138/79 09/12/23 04:11 88 138/83 09/12/23 03:53 136 H 131/80 09/12/23 03:51 36.9 C 135 H 18 131/80 95 09/11/23 22:50 36.4 C L 110 H 18 139/65 96 09/11/23 21:56 97 H 09/11/23 21:09 88 132/59 L 09/11/23 21:02 09/11/23 20:51 134 H 110/66 O2 Del Method 09/12/23 08:10 09/12/23 07:27 Room Air 09/12/23 06:19 09/12/23 04:11 09/12/23 03:53 09/12/23 03:51 Room Air 09/11/23 22:50 Room Air 09/11/23 21:56 09/11/23 21:09 09/11/23 21:02 Room Air 09/11/23 20:51 Laboratory Results 09/12/23 09/11/23 09/11/23 Range/Units 05:21 20:49 17:21 WBC 6.31 (4.8-10.8) K/ul RBC 4.45 (4.20-5.40) M/uL Hgb 13.2 (12.0-16.0) g/dl Hct 39.8 (37.0-47.0) % MCV 89.4 (80.0-100.0) fL MCH 29.7 (25.0-34.0) pg MCHC 33.2 (32.0-36.0) g/dL RDW Std Deviation 49.9 H (36.4-46.3) fL RDW Coeff of Charisma 15.3 H (11.5-14.5) % Plt Count 260 (130-400) K/uL MPV 11.1 (9.4-12.4) fL Sodium 135 L (136-145) mmol/L Potassium 4.1 (3.5-5.1) mmol/L Chloride 103 (98-107) mmol/L Carbon Dioxide 25 (21-32) mmol/L Anion Gap 7 (3-11) BUN 12 (6-23) mg/dl Creatinine 0.73 (0.6-1.2) mg/dl Est Cr Clr Drug Dosing 37.2 ml/min Est GFR ( Amer) 84.6 ml/min Est GFR (Non-Af Amer) 73.0 ml/min BUN/Creatinine Ratio 16.4 (10-20) Glucose 94 (70-99(Fasting)) mg/dl POC Glucose 116 H 245 H (70-99) mg/dl Calcium 9.4 (8.6-10.3) mg/dl Phosphorus 2.7 (2.5-4.9) mg/dl Magnesium 1.8 (1.7-2.4) mg/dl Troponin I High Sens 24.8 H (0-14) pg/ml 09/11/23 Range/Units 12:23 WBC (4.8-10.8) K/ul RBC (4.20-5.40) M/uL Hgb (12.0-16.0) g/dl Hct (37.0-47.0) % MCV (80.0-100.0) fL MCH (25.0-34.0) pg MCHC (32.0-36.0) g/dL RDW Std Deviation (36.4-46.3) fL RDW Coeff of Charisma (11.5-14.5) % Plt Count (130-400) K/uL MPV (9.4-12.4) fL Sodium (136-145) mmol/L Potassium (3.5-5.1) mmol/L Chloride (98-107) mmol/L Carbon Dioxide (21-32) mmol/L Anion Gap (3-11) BUN (6-23) mg/dl Creatinine (0.6-1.2) mg/dl Est Cr Clr Drug Dosing ml/min Est GFR ( Amer) ml/min Est GFR (Non-Af Amer) ml/min BUN/Creatinine Ratio (10-20) Glucose (70-99(Fasting)) mg/dl POC Glucose 176 H (70-99) mg/dl Calcium (8.6-10.3) mg/dl Phosphorus (2.5-4.9) mg/dl Magnesium (1.7-2.4) mg/dl Troponin I High Sens (0-14) pg/ml Medications Administered Current Inpatient Medications Acetaminophen (Acetaminophen 325 Mg Tab) 650 mg PO Q4H PRN PRN Reason: Pain or Fever Stop: 10/06/23 15:26 Last Admin: 09/09/23 06:19 Dose: 650 mg Al Hydrox/Mg Hydrox/Simethicone (Aluminum/Magnesium Susp 30 Ml Udc) 15 ml PO Q4H PRN PRN Reason: Dyspepsia Stop: 10/06/23 15:26 Dextrose (Dextrose 50% 50 Ml Syringe) 25 - 50 ml IV UD PRN; Protocol PRN Reason: Hypoglycemia Protocol Stop: 10/06/23 15:54 Digoxin (Digoxin 0.125 Mg Tab) 0.125 mg PO DAILY@1600 [facility] Stop: 10/11/23 15:59 Last Admin: 09/11/23 16:43 Dose: Not Given Empagliflozin (Empagliflozin 10 Mg Tab) 10 mg PO DAILY [facility] Stop: 10/08/23 09:29 Last Admin: 09/12/23 08:05 Dose: 10 mg Escitalopram Oxalate (Escitalopram Oxalate 10 Mg Tab) 5 mg PO DAILY [facility] Stop: 10/07/23 08:59 Last Admin: 09/12/23 08:05 Dose: 5 mg Glucagon (Glucagon For Inj 1 Mg Vial) 1 mg SQ UD PRN; Protocol PRN Reason: Hypoglycemia Protocol Stop: 10/06/23 15:54 Glucose (Glucose 10 Tab/Tube) 4 - 8 tab PO UD PRN; Protocol PRN Reason: Hypoglycemia Treatment Stop: 10/06/23 15:54 Glucose (Glucose 40% Gel 15 Gm Tube) 15 - 30 gm PO UD PRN; Protocol PRN Reason: Hypoglycemia Protocol Stop: 10/06/23 15:54 Ceftriaxone Sodium 1,000 mg/ (Dextrose) 50 mls @ 100 mls/hr IV Q24H [facility]; Protocol Stop: 09/14/23 08:59 Last Admin: 09/12/23 08:00 Dose: 100 mls/hr Dextrose/Sodium Chloride (D5w And Nss) 1,000 mls @ 75 mls/hr IV .[id number] [facility] Stop: 10/10/23 20:59 Last Admin: 09/11/23 10:18 Dose: 75 mls/hr Insulin Aspart (Insulin Aspart Per Unit Charge) 0 units SC ACHS [facility] Stop: 10/06/23 16:29 Last Admin: 09/11/23 21:16 Dose: Not Given Insulin Glargine (Lantus Per Unit Charge) 0 - 5 units SQ BID [facility] Stop: 10/06/23 20:59 Last Admin: 09/11/23 21:17 Dose: Not Given Levothyroxine Sodium (Levothyroxine Sodium 50 Mcg Tablet) 50 mcg PO DAILYBB [facility] Stop: 10/07/23 06:29 Last Admin: 09/12/23 06:46 Dose: Not Given Magnesium Hydroxide (Magnesium Hydroxide Susp 30 Ml Udc) 30 ml PO Q12H PRN PRN Reason: Constipation Stop: 10/06/23 15:26 Magnesium Oxide (Magnesium Oxide 400 Mg Tab) 400 mg PO BID [facility] Stop: 10/08/23 09:14 Last Admin: 09/12/23 08:05 Dose: 400 mg Metoprolol Tartrate (Metoprolol Tartrate 25 Mg Tab) 25 mg PO [facility] Stop: 10/08/23 20:59 Last Admin: 09/12/23 08:03 Dose: 25 mg Metoprolol Tartrate (Metoprolol Tartrate 1 Mg/Ml Vial) 2.5 mg IV Q6 PRN PRN Reason: Tachycardia Stop: 10/11/23 00:00 Last Admin: 09/12/23 03:53 Dose: 2.5 mg Miscellaneous (Carbohydrates For Hypoglycemia ) 15 - 30 gm PO UD PRN PRN Reason: Hypoglycemia Protocol Stop: 10/06/23 15:54 Olanzapine (Olanzapine 10 Mg/2.1 Ml Sdv) 2.5 mg IM Q4H PRN PRN Reason: Agitation Stop: 10/06/23 22:59 Pantoprazole Sodium (Pantoprazole 40 Mg Tab) 40 mg PO [facility] Stop: 10/06/23 20:59 Last Admin: 09/12/23 08:05 Dose: 40 mg Senna/Docusate Sodium (Docusate Sodium/Senna 50/8.6mg Tab) 1 tab PO BID [facility] Stop: 10/06/23 20:59 Last Admin: 09/12/23 08:10 Dose: 1 tab Spironolactone (Spironolactone 25 Mg Tab) 25 mg PO [facility] Stop: 10/08/23 09:29 Last Admin: 09/10/23 07:42 Dose: Not Given
[2023-09-12] MEDS: INSULIN ASPART PER UNIT CHARGE SC SCH ×4 (08:57→20:32)
[2023-09-12] MEDS: LANTUS PER UNIT CHARGE SQ SCH ×2 (09:20→20:32)
--- NOTE | 2023-09-12 14:51 | XRay Report ---
XR chest 1V portable CLINICAL HISTORY: follow up chest pain TECHNIQUE: Single frontal radiograph of the chest was obtained. Comparison: Comparison is made to chest radiograph 09/06/2023 FINDINGS: Median sternotomy wires and dual-lead pacemaker noted. Cardiomegaly is noted. The aortic arch is calc ified. The lungs are clear. No evidence of pleural effusion or pneumothorax. IMPRESSION: Previously noted pulmonary edema has resolved. Cardiomegaly remains without other acute abnormality. ACT 112: Negative or not required by law. Electronically signed by: Misael Holguin M.D. 09/12/2023 2:50 PM
[2023-09-12] MEDS: DIGOXIN 0.125 MG TAB PO SCH (17:08)
[2023-09-13] MEDS ORDERED: METOPROLOL TARTRATE 1 MG/ML VIAL IV STA (01:26)
[2023-09-13] MEDS: LEVOTHYROXINE SODIUM 50 MCG TABLET PO SCH (05:24)
[2023-09-13 06:45] LABS: BUN Creatinine Ratio 17.2 (10-20); Calcium 9.7 mg/dl (8.6-10.3); Creatinine Clr Calc Pharmacy 29.1 ml/min; Est GFR (African American) 63.2 ml/min; Est GFR (Non-African American) 54.5 ml/min; Magnesium 1.9 mg/dl (1.7-2.4)
[2023-09-13] MEDS: INSULIN ASPART PER UNIT CHARGE SC SCH ×4 (08:39→20:46)
--- NOTE | 2023-09-13 10:33 | Hospitalist Progress Note ---
Date of Service September 13, 2023 Assessment & Plan (1) Acute on chronic heart failure with preserved ejection fraction (HFpEF): Plan: Hypoxia Acute HFpEF Moderate to Severe Last echocardiogram 01/2021 revealed LVEF 50%, enlargement of left atrium, LVH, moderately severe to severe aortic stenosis, moderate severe mitral valve insufficiency, moderate to severe tricuspid insufficiency, moderate pulmonic valvular insufficiency, moderate pulmonary hypertension Patient because of fall and facial trauma and found to have acute on chronic CHF currently on lasix 20mg daily s/p flynn i/o appreciate cardiology inputs. Current Echo - Dilated LV with severely reduced LV systolic function. -- LVEF 25% to 30% with severe hypokinesis to akinesis of apex and mid to distal inferior wall, otherwise global hypokinesis. -- Decreased RV systolic function. -- Severe . -- [id number] MR. -- Moderate pulmonary hypertension. Per cardiology - The etiology of her Cardiomyopathy is likely multifactorial -- likely related to Valvular Heart Disease, Tachycardia related to A-Fib, with a probable Ischemic Component. As she has a newly discovered Cardiomyopathy with an LVEF of 25% to 30% -- Propafenone is contraindicated and will be stopped. Recommend the followin. Increase IV Lasix to 40 mg daily. 2. Increase Metoprolol Tartrate to 25 mg b.i.d. 3. Begin Jardiance 10 mg daily. 4. Begin Spironolactone 25 mg daily. 5. Monitor I&O's and daily body weights. 6. Daily BMP +/- serum Mg level. 7. Strict 2 g low sodium diet. If HR becomes an issue off of Propafenone -- recommend titrating her beta fara +/- adding Digoxin. She is not a candidate for anticoagulation due to her fall risk. 09/10 Pt is laying flat in bed on RA, singing, on RA. BP lower and HR elevated. Discussed w/ cardiology - starting digoxin and put furosemide on hold. 09/11 Refusing PO metoprolol and tachycardic. Giving 2.5 IV metoprolol today. Will try to give PO later. BP low yesterday and overnight - gave gentle fluids back, holding lasix. 09/12 not taking PO metoprolol or digoxin. Had chest pain overnight was in afib w/ RVR, received iv metoprolol. Currently laying flat in bed singing, comfortable. Will also repeat CXR to [facility] from previous, as she received IVF. 09/13 CXR reviewed - pulm, edema resolved, and resolved pl. effusion. Discussed w/ cardiology - cont. w/ on DC - Digoxin, metoprolol, spironolactone, Jardiance, and as needed Lasix. Fall Acute right nasal fracture was lethargic on presentation . Now alert and awake. ICE TID discussed with daughter pt not a surgical candidate and would not want any surgical intervention if indicated empiric clindamycin given repeat head CT ok Seen by developmental behavioral physician- no intervention at this time can stop antibiotics after 24hrs - abx stopped pt/ot UTI -UA suggestive of UTI (and pt w/ hx of UTI) Ucultx w/ multiple bacteria - repeated collection - Gram negat. bacilli -> Proteus mirabillis - cont. rocephin Alzheimer Dementia as per H and p.:per daughter has been worsening, refers to past a lot conversation is even difficult monitor for delirium PAF not on anticoagulation 2/2 fall risk continue metoprolol, propafenone stopped (as above) will monitor Hypothyroidism chronic, stable On levothyroxine HTN holding amlodipine for now due to low normal BP resume when able continue metoprolol - meds managed by cardiology at this time DVT ppx: SCDS 2/2 fall DNR/DNI - Admission and Anticipated Discharge Date Admission Date: September 06, 2023 Subjective Pt seen in follow up of fall, CHF exacerb. Laying in bed in NAD, pleasantly confused very hard of hearing denies any headache or chest pain or abdominal pain seems comfortable could not get much answers as patient is very hard of hearing and has dementia Pt seen by cardiology as well, medications adjusted Per CM - pt is to return to [facility] after DC Pt was refusing oral metoprolol. on and off tachycardic, requires IV metoprolol prn - also started on digoxin on wednesday as BP low and HR elevated (oral med does not take). also Received IVF which improved BP and HR. CXR also obtained to [facility] from previous - pulm edema, pl. effusion resolved. Discussed w/ cardiology via tiger text today. cont. w/ on DC - Digoxin, metoprolol, spironolactone, Jardiance, and as needed Lasix. Review of Systems Review of Systems: All systems reviewed & are unremarkable except as noted in Subjective Physical Exam Physical Exam: General- elderly F in NAD Head- ecchymosis seen ENT- mild nasal swelling Neck- supple Lungs- CTAB, no wheezing Heart- irregular rhythm; + murmur, no gallop. Abdomen- normal bowel sounds, soft, nontender, no distension Extremities- no pretibial edema, no erythema seen. Neuro- awake and alert, oriented x 1; no facial palsy; no dysarthria; moves extremities, pleasantly confused Skin- warm & dry Results & Data Results & Data Vital Signs (Past 12 Hours) Vital Signs Temp Pulse Pulse Resp BP BP Pulse Ox 09/13/23 09:52 89 09/13/23 07:26 36.5 C 80 18 135/67 95 09/13/23 02:01 90 145/55 H 09/13/23 01:43 136 H 125/71 09/13/23 01:25 137 H 123/66 09/12/23 23:09 108 H 18 145/66 H 94 09/12/23 23:09 108 H 145/66 H 09/12/23 22:36 110 H O2 Del Method 09/13/23 09:52 09/13/23 07:26 Room Air 09/13/23 02:01 09/13/23 01:43 09/13/23 01:25 09/12/23 23:09 Room Air 09/12/23 23:09 09/12/23 22:36 Laboratory Results 09/13/23 09/13/23 09/12/23 Range/Units 07:34 06:10 20:21 Sodium 136 (136-145) mmol/L Potassium 4.0 (3.5-5.1) mmol/L Chloride 103 (98-107) mmol/L Carbon Dioxide 26 (21-32) mmol/L Anion Gap 7 (3-11) BUN 16 (6-23) mg/dl Creatinine 0.93 (0.6-1.2) mg/dl Est Cr Clr Drug Dosing 29.1 ml/min Est GFR ( Amer) 63.2 ml/min Est GFR (Non-Af Amer) 54.5 ml/min BUN/Creatinine Ratio 17.2 (10-20) Glucose 118 H (70-99(Fasting)) mg/dl POC Glucose 105 H 108 H (70-99) mg/dl Calcium 9.7 (8.6-10.3) mg/dl Phosphorus 3.0 (2.5-4.9) mg/dl Magnesium 1.9 (1.7-2.4) mg/dl 09/12/23 09/12/23 Range/Units 17:18 12:11 Sodium (136-145) mmol/L Potassium (3.5-5.1) mmol/L Chloride (98-107) mmol/L Carbon Dioxide (21-32) mmol/L Anion Gap (3-11) BUN (6-23) mg/dl Creatinine (0.6-1.2) mg/dl Est Cr Clr Drug Dosing ml/min Est GFR ( Amer) ml/min Est GFR (Non-Af Amer) ml/min BUN/Creatinine Ratio (10-20) Glucose (70-99(Fasting)) mg/dl POC Glucose 126 H 143 H (70-99) mg/dl Calcium (8.6-10.3) mg/dl Phosphorus (2.5-4.9) mg/dl Magnesium (1.7-2.4) mg/dl Medications Administered Current Inpatient Medications Acetaminophen (Acetaminophen 325 Mg Tab) 650 mg PO Q4H PRN PRN Reason: Pain or Fever Stop: 10/06/23 15:26 Last Admin: 09/09/23 06:19 Dose: 650 mg Al Hydrox/Mg Hydrox/Simethicone (Aluminum/Magnesium Susp 30 Ml Udc) 15 ml PO Q4H PRN PRN Reason: Dyspepsia Stop: 10/06/23 15:26 Dextrose (Dextrose 50% 50 Ml Syringe) 25 - 50 ml IV UD PRN; Protocol PRN Reason: Hypoglycemia Protocol Stop: 10/06/23 15:54 Digoxin (Digoxin 0.125 Mg Tab) 0.125 mg PO DAILY@1600 [facility] Stop: 10/11/23 15:59 Last Admin: 09/12/23 17:08 Dose: 0.125 mg Empagliflozin (Empagliflozin 10 Mg Tab) 10 mg PO DAILY [facility] Stop: 10/08/23 09:29 Last Admin: 09/12/23 08:05 Dose: 10 mg Escitalopram Oxalate (Escitalopram Oxalate 10 Mg Tab) 5 mg PO DAILY [facility] Stop: 10/07/23 08:59 Last Admin: 09/12/23 08:05 Dose: 5 mg Glucagon (Glucagon For Inj 1 Mg Vial) 1 mg SQ UD PRN; Protocol PRN Reason: Hypoglycemia Protocol Stop: 10/06/23 15:54 Glucose (Glucose 10 Tab/Tube) 4 - 8 tab PO UD PRN; Protocol PRN Reason: Hypoglycemia Treatment Stop: 10/06/23 15:54 Glucose (Glucose 40% Gel 15 Gm Tube) 15 - 30 gm PO UD PRN; Protocol PRN Reason: Hypoglycemia Protocol Stop: 10/06/23 15:54 Ceftriaxone Sodium 1,000 mg/ (Dextrose) 50 mls @ 100 mls/hr IV Q24H [facility]; Protocol Stop: 09/14/23 08:59 Last Infusion: 09/12/23 08:53 Dose: Infused Dextrose/Sodium Chloride (D5w And Nss) 1,000 mls @ 75 mls/hr IV .[id number] [facility] Stop: 10/10/23 20:59 Last Admin: 09/11/23 10:18 Dose: 75 mls/hr Insulin Aspart (Insulin Aspart Per Unit Charge) 0 units SC ACHS [facility] Stop: 10/06/23 16:29 Last Admin: 09/13/23 08:39 Dose: Not Given Insulin Glargine (Lantus Per Unit Charge) 0 - 5 units SQ BID [facility] Stop: 10/06/23 20:59 Last Admin: 09/12/23 20:32 Dose: Not Given Levothyroxine Sodium (Levothyroxine Sodium 50 Mcg Tablet) 50 mcg PO DAILYBB [facility] Stop: 10/07/23 06:29 Last Admin: 09/13/23 05:24 Dose: 50 mcg Magnesium Hydroxide (Magnesium Hydroxide Susp 30 Ml Udc) 30 ml PO Q12H PRN PRN Reason: Constipation Stop: 10/06/23 15:26 Magnesium Oxide (Magnesium Oxide 400 Mg Tab) 400 mg PO BID [facility] Stop: 10/08/23 09:14 Last Admin: 09/12/23 22:32 Dose: Not Given Metoprolol Tartrate (Metoprolol Tartrate 25 Mg Tab) 25 mg PO AMHS [facility] Stop: 10/08/23 20:59 Last Admin: 09/12/23 22:32 Dose: Not Given Metoprolol Tartrate (Metoprolol Tartrate 1 Mg/Ml Vial) 2.5 mg IV Q6 PRN PRN Reason: Tachycardia Stop: 10/11/23 00:00 Last Admin: 09/12/23 22:28 Dose: 2.5 mg Miscellaneous (Carbohydrates For Hypoglycemia ) 15 - 30 gm PO UD PRN PRN Reason: Hypoglycemia Protocol Stop: 10/06/23 15:54 Olanzapine (Olanzapine 10 Mg/2.1 Ml Sdv) 2.5 mg IM Q4H PRN PRN Reason: Agitation Stop: 10/06/23 22:59 Last Admin: 09/12/23 22:47 Dose: 2.5 mg Pantoprazole Sodium (Pantoprazole 40 Mg Tab) 40 mg PO [facility] Stop: 10/06/23 20:59 Last Admin: 09/12/23 22:32 Dose: Not Given Senna/Docusate Sodium (Docusate Sodium/Senna 50/8.6mg Tab) 1 tab PO BID [facility] Stop: 10/06/23 20:59 Last Admin: 09/12/23 22:32 Dose: Not Given Spironolactone (Spironolactone 25 Mg Tab) 25 mg PO QAM [facility] Stop: 10/08/23 09:29 Last Admin: 09/10/23 07:42 Dose: Not Given
[2023-09-13] MEDS: METOPROLOL TARTRATE 25 MG TAB PO SCH ×3 (11:12→19:43)
[2023-09-13] MEDS: cefTRIAXone SODIUM 1,000 MG in DEXTROSE 5 % MINI-B 50 ML IV SCH (11:12)
[2023-09-13] MEDS: PANTOprazole 40 MG TAB PO SCH ×3 (11:12→19:43)
[2023-09-13] MEDS: MAGNESIUM OXIDE 400 MG TAB PO SCH ×3 (11:13→19:43)
[2023-09-13] MEDS: ESCITALOPRAM OXALATE 10 MG TAB PO SCH (11:14)
[2023-09-13] MEDS: EMPAGLIFLOZIN 10 MG TAB PO SCH (11:15)
[2023-09-13] MEDS: DOCUSATE SODIUM/SENNA 50/8.6MG TAB PO SCH ×3 (11:15→19:43)
[2023-09-13] MEDS: LANTUS PER UNIT CHARGE SQ SCH ×2 (11:15→20:46)
[2023-09-13] MEDS: DIGOXIN 0.125 MG TAB PO SCH (17:09)
--- NOTE | 2023-09-13 19:40 | Electrocardiogram Report ---
Test Reason : Blood Pressure : / mmHG Vent. Rate : 118 BPM Atrial Rate : 110 BPM P-R Int : 000 ms QRS Dur : 150 ms QT Int : 378 ms P-R-T Axes : 000 -74 066 degrees QTc Int : 529 ms Atrial fibrillation with rapid ventricular response Right bundle branch block Left anterior fascicular block Bifascicular block Abnormal ECG When compared with ECG of 07-SEP-2023 07:43, Atrial fibrillation has replaced Sinus rhythm Nonspecific T wave abnormality, improved in Inferior leads Confirmed by Darrell Reyes ([id number]) on 09/13/2023 7:39:54 PM Referred By[facility] Confirmed By:Prasanna Reyes
[2023-09-14] MEDS: LEVOTHYROXINE SODIUM 50 MCG TABLET PO SCH (05:27)
[2023-09-14 06:47] LABS: Calcium 9.3 mg/dl (8.6-10.3); Creatinine Clr Calc Pharmacy 33.9 ml/min; Est GFR (African American) 75.8 ml/min; Est GFR (Non-African American) 65.4 ml/min; Magnesium 1.9 mg/dl (1.7-2.4); Phosphorus 3.6 mg/dl (2.5-4.9); Potassium 3.9 mmol/L (3.5-5.1)
[2023-09-14] MEDS: INSULIN ASPART PER UNIT CHARGE SC SCH ×4 (08:27→20:51)
[2023-09-14] MEDS: LANTUS PER UNIT CHARGE SQ SCH ×2 (08:27→20:51)
[2023-09-14] MEDS: DOCUSATE SODIUM/SENNA 50/8.6MG TAB PO SCH ×2 (08:51→19:15)
[2023-09-14] MEDS: EMPAGLIFLOZIN 10 MG TAB PO SCH (08:51)
[2023-09-14] MEDS: MAGNESIUM OXIDE 400 MG TAB PO SCH ×2 (08:51→19:08)
[2023-09-14] MEDS: ESCITALOPRAM OXALATE 10 MG TAB PO SCH (08:52)
[2023-09-14] MEDS: PANTOprazole 40 MG TAB PO SCH ×2 (08:52→19:09)
[2023-09-14] MEDS: METOPROLOL TARTRATE 25 MG TAB PO SCH ×2 (08:52→19:08)
[2023-09-14] MEDS: DIGOXIN 0.125 MG TAB PO SCH (15:53)
--- NOTE | 2023-09-14 18:40 | Hospitalist Progress Note ---
Date of Service September 14, 2023 Assessment & Plan (1) Acute on chronic heart failure with preserved ejection fraction (HFpEF): Plan: Hypoxia Acute HFpEF Moderate to Severe Last echocardiogram 01/2021 revealed LVEF 50%, enlargement of left atrium, LVH, moderately severe to severe aortic stenosis, moderate severe mitral valve insufficiency, moderate to severe tricuspid insufficiency, moderate pulmonic valvular insufficiency, moderate pulmonary hypertension Patient because of fall and facial trauma and found to have acute on chronic CHF currently on lasix 20mg daily s/p flynn i/o appreciate cardiology inputs. Current Echo - Dilated LV with severely reduced LV systolic function. -- LVEF 25% to 30% with severe hypokinesis to akinesis of apex and mid to distal inferior wall, otherwise global hypokinesis. -- Decreased RV systolic function. -- Severe . -- Twryxdof-er-awhvob MR. -- Moderate pulmonary hypertension. Per cardiology - The etiology of her Cardiomyopathy is likely multifactorial -- likely related to Valvular Heart Disease, Tachycardia related to A-Fib, with a probable Ischemic Component. As she has a newly discovered Cardiomyopathy with an LVEF of 25% to 30% -- Propafenone is contraindicated and will be stopped. Recommend the followin. Increase IV Lasix to 40 mg daily. 2. Increase Metoprolol Tartrate to 25 mg b.i.d. 3. Begin Jardiance 10 mg daily. 4. Begin Spironolactone 25 mg daily. 5. Monitor I&O's and daily body weights. 6. Daily BMP +/- serum Mg level. 7. Strict 2 g low sodium diet. If HR becomes an issue off of Propafenone -- recommend titrating her beta fara +/- adding Digoxin. She is not a candidate for anticoagulation due to her fall risk. 09/10 Pt is laying flat in bed on RA, singing, on RA. BP lower and HR elevated. Discussed w/ cardiology - starting digoxin and put furosemide on hold. 09/11 Refusing PO metoprolol and tachycardic. Giving 2.5 IV metoprolol today. Will try to give PO later. BP low yesterday and overnight - gave gentle fluids back, holding lasix. 09/12 not taking PO metoprolol or digoxin. Had chest pain overnight was in afib w/ RVR, received iv metoprolol. Currently laying flat in bed singing, comfortable. Will also repeat CXR to [facility] from previous, as she received IVF. 09/13 CXR reviewed - pulm, edema resolved, and resolved pl. effusion. Discussed w/ cardiology - cont. w/ on DC - Digoxin, metoprolol, spironolactone, Jardiance, and as needed Lasix. Fall Acute right nasal fracture was lethargic on presentation . Now alert and awake. ICE TID discussed with daughter pt not a surgical candidate and would not want any surgical intervention if indicated empiric clindamycin given repeat head CT ok Seen by floral designer salesperson- no intervention at this time can stop antibiotics after 24hrs - abx stopped pt/ot UTI -UA suggestive of UTI (and pt w/ hx of UTI) Ucultx w/ multiple bacteria - repeated collection - Gram negat. bacilli -> Proteus mirabillis - cont. rocephin Alzheimer Dementia as per H and p.:per daughter has been worsening, refers to past a lot conversation is even difficult monitor for delirium PAF not on anticoagulation 2/2 fall risk continue metoprolol, propafenone stopped (as above), digoxin added will monitor Hypothyroidism chronic, stable On levothyroxine HTN holding amlodipine for now due to low normal BP resume when able continue metoprolol - meds managed by cardiology at this time DVT ppx: SCDS 2/2 fall DNR/DNI - Admission and Anticipated Discharge Date Admission Date: September 06, 2023 Subjective Pt seen in follow up of fall, CHF exacerb. Laying in bed in NAD, pleasantly confused/ demented very hard of hearing denies any headache or chest pain or abdominal pain seems comfortable Pt seen by cardiology as well, medications adjusted Per CM - pt is to return to [facility] after DC Pt was refusing oral metoprolol. on and off tachycardic, requires IV metoprolol prn - also started on digoxin on wednesday as BP low and HR elevated (oral med does not take). also Received IVF which improved BP and HR. CXR obtained to edy[facility] from previous - pulm edema, pl. effusion resolved. Discussed w/ cardiology via tiger text yesterday. cont. w/ on DC - Digoxin, metoprolol, spironolactone, Jardiance, and as needed Lasix. Review of Systems Review of Systems: Unobtainable due to cognitive status Physical Exam Physical Exam: General- elderly F in NAD Head- ecchymosis seen ENT- mild nasal swelling Neck- supple Lungs- CTAB, no wheezing Heart- irregular rhythm; + murmur, no gallop. Abdomen- normal bowel sounds, soft, nontender, no distension Extremities- no pretibial edema, no erythema seen. Neuro- awake and alert, oriented x 1; no facial palsy; no dysarthria; moves extremities, pleasantly confused Skin- warm & dry Results & Data Results & Data Vital Signs (Past 12 Hours) Vital Signs Temp Pulse Pulse Resp BP Pulse Ox O2 Del Method 09/14/23 15:53 80 09/14/23 15:16 36.6 C 88 18 128/58 L 96 Room Air 09/14/23 11:15 36.6 C 103 H 18 109/64 96 Room Air 09/14/23 10:00 Room Air 09/14/23 09:52 108 H 09/14/23 07:16 36.5 C 132 H 18 135/77 97 Room Air Laboratory Results 09/14/23 09/14/23 09/14/23 Range/Units Unknown 16:52 11:51 Sodium (136-145) mmol/L Potassium (3.5-5.1) mmol/L Chloride (98-107) mmol/L Carbon Dioxide (21-32) mmol/L Anion Gap (3-11) BUN (6-23) mg/dl Creatinine (0.6-1.2) mg/dl Est Cr Clr Drug Dosing ml/min Est GFR ( Amer) ml/min Est GFR (Non-Af Amer) ml/min BUN/Creatinine Ratio (10-20) Glucose (70-99(Fasting)) mg/dl POC Glucose 192 H 135 H (70-99) mg/dl Calcium (8.6-10.3) mg/dl Phosphorus (2.5-4.9) mg/dl Magnesium (1.7-2.4) mg/dl SARS-CoV-2 (PCR) NEGATIVE (Negative) 09/14/23 09/14/23 09/13/23 Range/Units 08:08 05:37 20:14 Sodium 136 (136-145) mmol/L Potassium 3.9 (3.5-5.1) mmol/L Chloride 102 (98-107) mmol/L Carbon Dioxide 25 (21-32) mmol/L Anion Gap 9 (3-11) BUN 20 (6-23) mg/dl Creatinine 0.80 (0.6-1.2) mg/dl Est Cr Clr Drug Dosing 33.9 ml/min Est GFR ( Amer) 75.8 ml/min Est GFR (Non-Af Amer) 65.4 ml/min BUN/Creatinine Ratio 25.0 H (10-20) Glucose 107 H (70-99(Fasting)) mg/dl POC Glucose 98 186 H (70-99) mg/dl Calcium 9.3 (8.6-10.3) mg/dl Phosphorus 3.6 (2.5-4.9) mg/dl Magnesium 1.9 (1.7-2.4) mg/dl SARS-CoV-2 (PCR) (Negative) Medications Administered Current Inpatient Medications Acetaminophen (Acetaminophen 325 Mg Tab) 650 mg PO Q4H PRN PRN Reason: Pain or Fever Stop: 10/06/23 15:26 Last Admin: 09/09/23 06:19 Dose: 650 mg Al Hydrox/Mg Hydrox/Simethicone (Aluminum/Magnesium Susp 30 Ml Udc) 15 ml PO Q4H PRN PRN Reason: Dyspepsia Stop: 10/06/23 15:26 Dextrose (Dextrose 50% 50 Ml Syringe) 25 - 50 ml IV UD PRN; Protocol PRN Reason: Hypoglycemia Protocol Stop: 10/06/23 15:54 Digoxin (Digoxin 0.125 Mg Tab) 0.125 mg PO DAILY@1600 [facility] Stop: 10/11/23 15:59 Last Admin: 09/14/23 15:53 Dose: 0.125 mg Empagliflozin (Empagliflozin 10 Mg Tab) 10 mg PO DAILY [facility] Stop: 10/08/23 09:29 Last Admin: 09/14/23 08:51 Dose: 10 mg Escitalopram Oxalate (Escitalopram Oxalate 10 Mg Tab) 5 mg PO DAILY [facility] Stop: 10/07/23 08:59 Last Admin: 09/14/23 08:52 Dose: 5 mg Glucagon (Glucagon For Inj 1 Mg Vial) 1 mg SQ UD PRN; Protocol PRN Reason: Hypoglycemia Protocol Stop: 10/06/23 15:54 Glucose (Glucose 10 Tab/Tube) 4 - 8 tab PO UD PRN; Protocol PRN Reason: Hypoglycemia Treatment Stop: 10/06/23 15:54 Glucose (Glucose 40% Gel 15 Gm Tube) 15 - 30 gm PO UD PRN; Protocol PRN Reason: Hypoglycemia Protocol Stop: 10/06/23 15:54 Dextrose/Sodium Chloride (D5w And Nss) 1,000 mls @ 75 mls/hr IV .[id number] [facility] Stop: 10/10/23 20:59 Last Infusion: 09/13/23 19:50 Dose: Infused Insulin Aspart (Insulin Aspart Per Unit Charge) 0 units SC ACHS [facility] Stop: 10/06/23 16:29 Last Admin: 09/14/23 18:14 Dose: 1 units Insulin Glargine (Lantus Per Unit Charge) 0 - 5 units SQ BID [facility] Stop: 10/06/23 20:59 Last Admin: 09/14/23 08:27 Dose: Not Given Levothyroxine Sodium (Levothyroxine Sodium 50 Mcg Tablet) 50 mcg PO DAILYBB [facility] Stop: 10/07/23 06:29 Last Admin: 09/14/23 05:27 Dose: 50 mcg Magnesium Hydroxide (Magnesium Hydroxide Susp 30 Ml Udc) 30 ml PO Q12H PRN PRN Reason: Constipation Stop: 10/06/23 15:26 Magnesium Oxide (Magnesium Oxide 400 Mg Tab) 400 mg PO BID [facility] Stop: 10/08/23 09:14 Last Admin: 09/14/23 08:51 Dose: 400 mg Metoprolol Tartrate (Metoprolol Tartrate 25 Mg Tab) 25 mg PO [facility] Stop: 10/08/23 20:59 Last Admin: 09/14/23 08:52 Dose: 25 mg Metoprolol Tartrate (Metoprolol Tartrate 1 Mg/Ml Vial) 2.5 mg IV Q6 PRN PRN Reason: Tachycardia Stop: 10/11/23 00:00 Last Admin: 09/12/23 22:28 Dose: 2.5 mg Miscellaneous (Carbohydrates For Hypoglycemia ) 15 - 30 gm PO UD PRN PRN Reason: Hypoglycemia Protocol Stop: 10/06/23 15:54 Olanzapine (Olanzapine 10 Mg/2.1 Ml Sdv) 2.5 mg IM Q4H PRN PRN Reason: Agitation Stop: 10/06/23 22:59 Last Admin: 09/12/23 22:47 Dose: 2.5 mg Pantoprazole Sodium (Pantoprazole 40 Mg Tab) 40 mg PO [facility] Stop: 10/06/23 20:59 Last Admin: 09/14/23 08:52 Dose: 40 mg Senna/Docusate Sodium (Docusate Sodium/Senna 50/8.6mg Tab) 1 tab PO BID [facility] Stop: 10/06/23 20:59 Last Admin: 09/14/23 08:51 Dose: 1 tab Spironolactone (Spironolactone 25 Mg Tab) 25 mg PO QAM [facility] Stop: 10/08/23 09:29 Last Admin: 09/10/23 07:42 Dose: Not Given
[2023-09-15 05:45] LABS: BUN Creatinine Ratio 22.9 (10-20); Calcium 9.3 mg/dl (8.6-10.3); Creatinine Clr Calc Pharmacy 28.2 ml/min; Est GFR (African American) 60.8 ml/min; Est GFR (Non-African American) 52.4 ml/min; Magnesium 1.9 mg/dl (1.7-2.4); Phosphorus 3.4 mg/dl (2.5-4.9)
[2023-09-15] MEDS: LEVOTHYROXINE SODIUM 50 MCG TABLET PO SCH ×2 (06:04→06:10)
[2023-09-15] MEDS: INSULIN ASPART PER UNIT CHARGE SC SCH ×2 (09:45→13:08)
[2023-09-15] MEDS: EMPAGLIFLOZIN 10 MG TAB PO SCH (09:49)
[2023-09-15] MEDS: MAGNESIUM OXIDE 400 MG TAB PO SCH (09:49)
[2023-09-15] MEDS: METOPROLOL TARTRATE 25 MG TAB PO SCH (09:49)
[2023-09-15] MEDS: ESCITALOPRAM OXALATE 10 MG TAB PO SCH (09:50)
[2023-09-15] MEDS: PANTOprazole 40 MG TAB PO SCH (09:54)
[2023-09-15] MEDS: DOCUSATE SODIUM/SENNA 50/8.6MG TAB PO SCH (09:57)
[2023-09-15] MEDS: LANTUS PER UNIT CHARGE SQ SCH (10:00)
--- NOTE | 2023-09-15 10:28 | Discharge Summary ---
Date of Service September 15, 2023 Admission HPI Per Admitting Provider This is an 88-year-old female who has a significant past medical history of Alzheimer's dementia, CAD with history of CABG, HTN, HLD, PAF, T2DM, hypothyroidism, cardiac pacemaker in situ, GERD, history of GI bleed and anxiety who presents to ER after sustaining a fall at nursing facility. History unable to be provided by patient due to underlying dementia. Outside records from nursing, reviewed. Per note patient had a witnessed fall by roommate in which she was sitting in her recliner chair and fell forward to the floor hitting her face. She was facedown on the floor and noted to have significant hematoma to left forehead and significant right-sided epistaxis and nasal bone swelling. She was very lethargic after the fall. Her vital signs were stable. They sent her to ER for further evaluation. In ER head CT was negative for any acute intracranial hemorrhage or skull fracture. Scalp swelling was noted in the midline frontal soft tissues. Cervical spine CT revealed degenerative changes without evidence of acute bony injury. Chest x-ray revealed cardiomegaly and cardiac pacemaker with evidence of congestive failure. Bilateral airspace opacities likely represent pulmonary edema versus superimposed infectious/inflammatory pneumonitis. Layering pleural effusions with dependent consolidations noted. On exam patient had a notable nasal swelling and the CT was obtained. A right nasal fracture was appreciated on imaging. Admission Exam Per Admitting Provider Constitutional: WD/WN, elderly, not oriented, obtunded, not arousable, vitals as above, Head: Normocephalic, +scalp contusion, ecchymosis Eyes: PERRL, conjunctivae normal, anicteric sclerae ENMT: external ear and nose normal, oropharynx dry membranes, nose with external blood noted, +nasal swelling Neck: trachea midline, no thyromegaly normal visual inspection Respiratory: normal respiratory effort, lungs clear to auscultation, no wheeze, rales, rhonchi. Normal insp/exp effort, no accessory muscle use Cardiovascular: RRR, 2/6 NOMI noted, no edema Vessels: no JVD or carotid bruit Chest: normal inspection of chest Abdomen: normal bowel sounds, soft, nontender, no hepatosplenomegaly Musculoskeletal: no cyanosis or clubbing, unable to asses MSK due to pt not able to follow commands Skin: no rashes, warm and dry normal turgor Neurologic: no face palsy,CN's II-XI intact bilaterally and moves all extremities Psychiatric: not oriented, euthymic affect Lymphatic: no cervical or axillary lymphadenopathy : deferred Principal Diagnosis Acute on chronic heart failure with preserved ejection fraction Moderate to severe Fall Acute nasal fracture Discharge Exam General- elderly F in NAD Head- ecchymosis seen ENT- mild nasal swelling Neck- supple Lungs- CTAB, no wheezing Heart- irregular rhythm; + murmur, no gallop. Abdomen- normal bowel sounds, soft, nontender, no distension Extremities- no pretibial edema, no erythema seen. Neuro- awake and alert, oriented x 1; no facial palsy; no dysarthria; moves extremities, pleasantly confused Skin- warm & dry Discharge Data Allergies Allergy/AdvReac Type Severity Reaction Status Date / Time Iodinated Contrast Media Allergy Severe Hives Verified 09/06/23 13:45 Penicillins Allergy Intermediate HIVES Verified 09/06/23 13:45 Consultations 09/06/23 14:33 Consult Oromaxillofacial Surgery Routine 09/06/23 15:49 Consult Cardiology Routine Ordered Studies 09/06/23 11:37 CT cervical spine wo con Stat FINDINGS: No acute fractures or subluxations are identified. Degenerative changes are seen in the visualized spine. The alignment is normal. Partial visualization of pleural effusions versus atelectasis in the lungs. IMPRESSION: Degenerative changes without evidence of acute bony injury. CT head/brain wo con Stat Findings: Areas of decreased attenuation are present in the periventricular and subcortical white matter bilaterally consistent with small vessel ischemic disease. Generalized cerebral atrophy with commensurate enlargement of the ventricles, sulci, and cisterns is also present. There is no acute intracranial hemorrhage or evidence of acute territorial infarction. No shift of the midline structures, mass effect, or extra-axial abnormalities are shown. Atherosclerotic calcifications are present in the intracranial segments of the internal carotid arteries. Imaged portions of the paranasal sinuses and mastoid air cells are clear. The orbits appear normal. There are no acute fractures of the calvaria. Scalp swelling is seen in the midline frontal soft tissues. Impression: No acute intracranial hemorrhage or skull fractures. Scalp swelling is seen in the midline frontal soft tissues. 09/06/23 13:17 CT facial bones wo con Stat FINDINGS: Exam is highly limited by patient motion. There is a likely nondisplaced fracture of the right nasal bone. Soft tissue swelling is seen about the nose. The mandible is intact. The temporomandibular joints are anatomically aligned. Pterygoid plates are intact. Zygomatic arches are intact. The globes are normal and symmetric, without proptosis, obvious disruption or lens dislocation. Senile calcific scleral plaques are noted. The orbital malik are intact. The retrobulbar fat is without evidence of disruption. Extraocular muscles are normal and symmetric. Optic nerve sheath complexes are normal in course and caliber. Soft tissue swelling is seen in the midline frontal region. Imaged portions of the paranasal sinuses and mastoid air cells are clear. IMPRESSION: Right nasal fracture with associated soft tissue swelling. 09/06/23 19:00 CT head/brain wo con Routine FINDINGS: Artifacts: Exam is degraded by patient motion. Brain: Global parenchymal volume loss with chronic microvascular ischemic changes and chronic right frontal lobe infarction. No hemorrhage. Ventricles: Prominence of the ventricles related to volume loss. Bones/joints: Unremarkable. No acute fracture. Soft tissues: Left frontal scalp hematoma. Sinuses: Unremarkable as visualized. Mastoid air cells: Unremarkable as visualized. No mastoid effusion. IMPRESSION: 1. Exam is degraded by patient motion. 2. No intracranial hemorrhage is seen. 3. Left frontal scalp hematoma. 4. Global parenchymal volume loss with chronic microvascular ischemic changes and chronic right frontal lobe infarction. Hospital Course (1) Acute on chronic heart failure with preserved ejection fraction (HFpEF): Hypoxia Acute HFpEF Moderate to Severe Last echocardiogram 01/2021 revealed LVEF 50%, enlargement of left atrium, LVH, moderately severe to severe aortic stenosis, moderate severe mitral valve insufficiency, moderate to severe tricuspid insufficiency, moderate pulmonic valvular insufficiency, moderate pulmonary hypertension Patient because of fall and facial trauma and found to have acute on chronic CHF currently on lasix 20mg daily s/p flynn i/o appreciate cardiology inputs. Current Echo - Dilated LV with severely reduced LV systolic function. -- LVEF 25% to 30% with severe hypokinesis to akinesis of apex and mid to distal inferior wall, otherwise global hypokinesis. -- Decreased RV systolic function. -- Severe . -- [id number] MR. -- Moderate pulmonary hypertension. Per cardiology - The etiology of her Cardiomyopathy is likely multifactorial -- likely related to Valvular Heart Disease, Tachycardia related to A-Fib, with a probable Ischemic Component. As she has a newly discovered Cardiomyopathy with an LVEF of 25% to 30% -- Propafenone is contraindicated and will be stopped. Recommend the followin. cont. lasix 2. Increase Metoprolol Tartrate to 25 mg b.i.d. 3. Begin Jardiance 10 mg daily. 4. Begin Spironolactone. 5. Monitor I&O's and daily body weights. 6. Daily BMP +/- serum Mg level. 7. Strict 2 g low sodium diet. If HR becomes an issue off of Propafenone -- recommend titrating her beta fara +/- adding Digoxin. She is not a candidate for anticoagulation due to her fall risk. 09/10 Pt is laying flat in bed on RA, singing, on RA. BP lower and HR elevated. Discussed w/ cardiology - starting digoxin and put furosemide on hold. 09/11 Refusing PO metoprolol and tachycardic. Giving 2.5 IV metoprolol today. Will try to give PO later. BP low yesterday and overnight - gave gentle fluids back, holding lasix. 09/12 not taking PO metoprolol or digoxin. Had chest pain overnight was in afib w/ RVR, received iv metoprolol. Currently laying flat in bed singing, comfortable. Will also repeat CXR to edyta from previous, as she received IVF. 09/13 CXR reviewed - pulm. edema resolved, and resolved pl. effusion. Discussed w/ cardiology - cont. w/ on DC - Digoxin, metoprolol, spironolactone, Jardiance, and Lasix - perhaps as prn. 09/15 Pt is doing well. Breathing comfortably on RA. K 5 - therefore - decreased dose of spironolactone on discharge, hold today. Cont. with small dose lasix - as in DC Summary. Will discharge on metoprolol (increased dose) , digoxin, Jardiance, lasix and spironolactone. Fall Acute right nasal fracture was lethargic on presentation . Now alert and awake. ICE TID discussed with daughter pt not a surgical candidate and would not want any surgical intervention if indicated empiric clindamycin given repeat head CT ok Seen by surgery assistant- no intervention at this time can stop antibiotics after 24hrs - abx stopped pt/ot UTI -UA suggestive of UTI (and pt w/ hx of UTI) Ucultx w/ multiple bacteria - repeated collection - Gram negat. bacilli -> Proteus mirabillis - Finished antibiotic treatment with Rocephin Alzheimer Dementia as per H and p.:per daughter has been worsening, refers to past a lot conversation is even difficult monitor for delirium PAF not on anticoagulation 2/2 fall risk continue metoprolol, propafenone stopped (as above), digoxin added - as above will monitor Hypothyroidism chronic, stable On levothyroxine HTN holding amlodipine continue metoprolol - meds managed by cardiology at this time, see above Total Time Total Time Spent Total Time Spent (In Minutes): 40 Discharge Plan Discharge Items Patient Disposition: Transfer Longterm Fac Reason For Visit: NASAL FX Discharge Diagnosis: Acute on chronic heart failure with preserved ejection fraction Moderate to severe Fall Acute nasal fracture Activity: Per Instructions section Non-emergency contact: Primary Care Provider Call non-emergency contact if: you have any medication questions Follow-up/Referrals: Kenna Knapp [Primary Care Provider] - Diet: Carb Consistent or DM2 Addtl Attending Provider Instructions: Follow up with primary care physician within 1 week. Take metoprolol 25 mg twice a day , digoxin 0.125 daily. In addition, take furosemide 20 mg daily and spironolactone 12.5 mg daily. STOP taking propafenone, and amlodipine. Start taking Jardiance. Monitor your weight daily. Follow up with your client development director. Addtl Ward Secretary Provider Instructions: Call your Primary Care doctor if any of the following symptoms or problems start or get worse: * Shortness of breath or difficulty breathing * Wake up at night short of breath * Chest pain * Cough * Swelling of your hands, feet, or legs * More fatigued or tired with your normal activity * Palpitations - sudden fast heart beats WEIGHT * Weigh yourself every morning after using the bathroom. * Use the same scale. * Wear the same amount of clothing. * Write your weight down on a chart. * Call your Primary Care doctor if you gain more than 2-3 pounds in 1-2 days. MEDICATIONS * Use this discharge instruction sheet for medication instructions. * Take your medications at the time your doctor ordered. * Do not skip a dose of your medicines. * If you miss a dose of medicine, take it as soon as possible, but DO NOT DOUBLE A DOSE. * Read your medicine information when you get home. * Know all of the side effects of your medicine. If in doubt, ask your pharmacist * Call your Primary Care doctor's office if you have any side effects. * Be sure all of your doctors know what medicine and herbs you take (including cold, flu, and herbal medicine). Take the following with you to your follow-up doctor appointments: * Weight Chart * Medication List * List of questions Do not drink excessive alcohol, beer or wine. Pending Studies at Discharge: No Stand-Alone Forms: [facility] Skilled Items Patient informed of condition?: Yes DNR: Yes Discharge Level of Care: Skilled Communicable Disease: No Discharge Prognosis: Other Lines: None Urinary Catheter: No Medications and DC Order Prescriptions: New metoprolol tartrate 25 mg Tablet 25 mg PO AMHS 30 Days Qty: 30 0RF digoxin [Digitek] 125 mcg (0.125 mg) Tablet 0.125 mg PO DAILY@1600 30 Days Qty: 30 0RF spironolactone 25 mg Tablet 12.5 mg PO QAM Qty: 30 0RF furosemide 20 mg Tablet 20 mg PO QAM Qty: 30 0RF Jardiance 10 mg Tablet 10 mg PO DAILY Qty: 30 0RF Continued levothyroxine 50 mcg tablet 50 mcg PO DAILYBB Rx Instructions: take 1/2 hour before breakfast acetaminophen 650 mg Suppository 650 mg OK Q4H PRN (Reason: Fever Or Pain) Rx Instructions: if unable to swallow po tylenol magnesium hydroxide [Milk of Magnesia] 400 mg/5 mL Suspension 2,400 mg PO .DAILY UD PRN (Reason: Constipation) Rx Instructions: If no BM x 3 days, give on day 4 in the morning ipratropium-albuterol 0.5 mg-3 mg(2.5 mg base)/3 mL solution for nebulization 3 ml INHALATION Q4H PRN (Reason: cough/SOB) ondansetron HCl 4 mg tablet 4 mg PO Q6H PRN (Reason: Nausea And Vomiting) dextromethorphan-guaifenesin [Siltussin-DM] 10-100 mg/5 mL Syrup 10 ml PO Q4H PRN (Reason: Cough) bisacodyl [Dulcolax (bisacodyl)] 10 mg Suppository 10 mg OK DAILY PRN (Reason: Constipation) Rx Instructions: If Milk of Magnesia ineffective on day 5 of no BM Fleet Enema 19-7 gram/118 mL Enema 118 ml OK DAILY PRN (Reason: Constipation) Rx Instructions: If dulcolax suppository not effective on day 6 of no BM gabapentin 100 mg capsule 100 mg PO DAILY escitalopram oxalate 5 mg tablet 5 mg PO DAILY Theracalazinc Ointment See Rx Instructions .ROUTE .COMPLEX Rx Instructions: Apply 1 application to areas on the left hip/thigh every shift for 14 days. Start Date 08/26/2023 - End Date 09/09/23 Senna Plus 8.6-50 mg Capsule 1 tab-cap PO AMPM melatonin 10 mg tablet 10 mg PO HS pantoprazole 20 mg Tablet,Delayed Release (Dr/Ec) 20 mg PO AMHS Rx Instructions: give 30 minutes before breakfast and 30 minutes before bedtime acetaminophen [Tylenol] 325 mg Tablet 650 mg PO Q4 MDD 3g PRN (Reason: Fever Or Pain) Rx Instructions: give for mild pain or TEMP > 100 diclofenac sodium 1 % gel 2 g TOPICAL BID Rx Instructions: apply to left hand and left elbow food supplemt, lactose-reduced Liquid 1 ea PO BID Rx Instructions: 240 ml by mouth twice a day Discontinued propafenone 150 mg tablet 150 mg PO Q8H Qty: 90 1RF metoprolol tartrate 25 mg Tablet 12.5 mg PO AMHS Rx Instructions: HOLD IF SBP <95 OR HR < 60 amlodipine 5 mg tablet 5 mg PO DAILY Rx Instructions: hold if SBP < 110 Discharge Orders: Discharge Order (Routine); Ordered 09/15/23 Ordered By: Maury Nance Admission Data Admit Date/Time: 09/06/23 14:25 Attending Provider: Maury Nance Admit Provider: Indu Ortiz Primary Care Provider: Kenna Knapp Other Providers: Reno Calvo; Hermelindo Del Real; Mckinley Alaniz; Jewel Mead
[2023-09-15] MEDS ORDERED: FUROSEMIDE 20 MG TAB PO SCH (10:30)
[2023-09-15] MEDS: SPIRONOLACTONE 25 MG TAB PO SCH (11:55)
[2023-09-15] MEDS: DIGOXIN 0.125 MG TAB PO SCH (15:45)
== END 2023-09-15 16:36 | DRG 291 ==
LOC: ED 11:05 → SUATTDRO 14:25 → EDINP 14:25 → 2W 15:27

== ENCOUNTER 2023-12-10 05:49 | Inpatient (IN) ==
--- NOTE | 2023-12-10 06:44 | XRay Report ---
XR pelvis 1-2V routine CLINICAL HISTORY: Left hip pain following injury. COMPARISON: CT of the pelvis March 10, 2022. Pelvis and left hip radiographs April 30, 2022. FINDINGS: This exam is mildly compromised given difficulty positioning. Healed intertrochanteric fra cture of the left femur is noted following internal fixation. Old right pubic ring fractures are pres ent. There is no acute proximal femoral fracture. There may be an old deformity of the left pubic rin g. IMPRESSION: 1. No definite acute fractures. 2. Deformity of the left pubic bones, age-indeterminate but likely chronic. Old right ischiopubic rin g fractures. 3. Healed intertrochanteric fracture of the left femur status post internal fixation. ACT 112: Negative or not required by law. Electronically signed by: Deyvi Casarez M.D. 12/10/2023 6:42 AM
--- NOTE | 2023-12-10 06:46 | XRay Report ---
XR femur LT 2V routine CLINICAL HISTORY: Lower Extremity Trauma COMPARISON: Left hip radiographs April 30, 2022. FINDINGS: This exam is compromised given difficulty positioning. Healed intertrochanteric fracture o f the left femur is noted status post internal fixation. Intramedullary is present. Hardware is i ntact. No acute left femoral fracture. IMPRESSION: 1. No acute left femoral fractures. Exam mildly compromised given difficulty positioning. 2. Healed intertrochanteric fracture status post internal fixation. ACT 112: Negative or not required by law. Electronically signed by: Deyvi Casarez M.D. 12/10/2023 6:45 AM
--- NOTE | 2023-12-10 06:47 | Emergency Department Note ---
Impression & Plan Sepsis, Leukocytosis, Acute UTI (urinary tract infection), Elevated lactic acid level, Fall from standing, Acute pain of left hip ED Provider Note HISTORY OF PRESENT ILLNESS: Patient is an 88-year-old female presenting after a reported ground-level fall. Patient is demented and unable to provide any meaningful history. I called the patient's facility, [facility], who supplied more history. They report that the patient was found on the ground at around 2:30 AM. She was last seen at around midnight. Patient is on hospice and has comfort measures only orders including Ativan and morphine. They state that the patient's baseline mental status is confused and agitated and she is often screaming. They state that she was screaming more than normal and they gave her more Ativan and morphine, but this does not calm her down and she continued to be agitated. They contacted the patient's family who requested transfer to the ER for further assessment. No report if she hit her head. Patient was unable to provide any history in terms of her fall. On assessment, she is screaming "it hurts." ROS: as above PHYSICAL EXAM: Constitutional: Patient appears in no acute distress. HENT: Head: Normocephalic and atraumatic. Eyes: EOMI, PERRL Mouth/Throat: Mucous membranes moist. Neck: Trachea midline. Neck supple. Cardiovascular: RRR, No murmurs, rubs or gallops. Intact distal pulses. Pulmonary/Chest: No respiratory distress. Breath sounds clear and equal bilaterally. No wheezes or rales. Abdominal: Abdomen soft, no tenderness, rebound or guarding. Musculoskeletal: No edema, tenderness or deformity noted. Skin: Warm and dry. No rash, erythema, pallor or cyanosis Psychiatric: Appropriate mood and affect for situation. Neurological: Alert but confused. CN II-XII grossly intact. Moves all extremities spontaneously. MDM: - Vitals signs showed tachycardia. - History obtained via patient's facility, given patient's dementia. Patient presents with ground-level fall. Patient is demented and unable to provide any meaningful history. Facility reports that the patient was found on the ground around 2:30 AM. She was last seen around midnight. Patient is on hospice and comfort measures only which include Ativan and morphine. The facility states that the patient was significantly more agitated and confused this morning and was screaming. They gave her a dose of Ativan and morphine with little relief in her screaming. They states that the patient was complaining of pain and they called the patient's family who requested evaluation in the ER. - Patient screaming on assessment. Ordered 1 mg IV ativan to help facilitate workup. - Chronic conditions affecting care: HFrEF; CKD; dementia; HTN; HLD; CVA; CAD; DM-2 - Differential diagnoses include, but are not limited to: pelvic fracture; femur fracture; UTI; pneumonia; viral syndrome; electrolyte abnormality - Order placed for continuous cardiac monitoring. At this time, monitor showed rate of 122 bpm with normal sinus rhythm, per my interpretation. - External medical records reviewed. Discharge summary dated 09/15/2023 was reviewed. Patient was [facility] at that time [facility] She had a right nasal fracture and pulmonary edema - EKG interpreted by myself showed atrial fibrillation. Rate tachycardic at 131 bpm. Noted to have a bifascicular block which has been noted on previous EKGs. No acute ischemic changes. - Laboratory workup interpreted by myself showed leukocytosis (WBC 18.92) with left shift; hyponatremia (Na 132); elevated lactate (3.8) - CXR negative for pneumonia, per my interpretation. - Xray pelvis negative for fracture - Xray left femur negative for fracture - UA obtained via straight cath showed infection. - Blood cultures obtained - Given 2g IV rocephin. Given 2L NS for fluid resuscitation. Patient's sepsis fluid resuscitation volume is 1568 mL based on ideal body weight. - Discussion was had with intensive care unit registered nurse about patient's case and need for admission - Hospitalist consulted for admission - [facility] ASSESSMENT AND PLAN: Diagnosis: sepsis; UTI; leukocytosis; fall from standing; left hip pain; elevated lactic acid Plan: admit Past Med/Surg History Medical History (Updated 12/10/23 @ 10:25 by Krystle Garces MD) HFrEF (heart failure with reduced ejection fraction) Goals of care, counseling/discussion Sepsis due to urinary tract infection Acute on chronic heart failure with preserved ejection fraction (HFpEF) Osteoarthritis CKD (chronic kidney disease), stage III Acute UTI (urinary tract infection) Fall Dementia Recurrent falls DVT prophylaxis CKD (chronic kidney disease) Aortic stenosis, severe Urinary incontinence Mild cognitive impairment History of pneumonia Acute GI bleeding Anticoagulant long-term use H/O non-ST elevation myocardial infarction (NSTEMI) Chronic diastolic congestive heart failure Anemia Anxiety CVA (cerebral vascular accident) Dyslipidemia Essential hypertension GERD without esophagitis Hypothyroidism Paroxysmal atrial fibrillation Type 2 diabetes mellitus TIA (transient ischemic attack) CAD (coronary artery disease) Surgical History Status post carotid surgery L CEA History of hysterectomy S/P lumpectomy of breast S/P cardiac pacemaker procedure Status post cholecystectomy Hx of CABG Family History Family/Other No problems noted. Brother Cardiac disorder Stroke Hypertension Lung disease Mother Stroke Father Stroke Sister Lung cancer Malignant neoplasm of urinary bladder Denies family history of Colon cancer Ovarian cancer Prostate cancer Myocardial infarction Breast cancer Social History Smoking Status: Unknown if ever smoked Age Started Using Tobacco: 17; Age Quit Using Tobacco: 29; packs per day: 0.5; Second Hand Exposure: No; Do You Dip or Chew Tobacco: No; Hx Alcohol Use: No Hx Substance Use: No Preferred Language: Guyanese Communication Ability: Effective Communication Ability Comment: hard of hearing Visual Impairment: Limited Hearing Ability: Use of Hearing Aid Breaker Machine Tender Required: No Beliefs That Will Affect Care: None marital status: / Current Living Situation: Personal Care Facility Current Living Situation Comment: [facility] current occupational status: retired How many Children do You have: 2 Feels Safe at Home: Yes Childhood Exposure to Second-Hand Smoke: Yes Diet: regular caffeine: Yes during the past year weight has: remained stable Dental Care, Regularly: Yes Physical Activity Frequency: Other Physical Activity Frequency Comment: limited by phusical condition Seatbelt Use: always Sunscreen Use: No Assistive Devices: Walker and Wheelchair Allergies Allergies Allergy/AdvReac Type Severity Reaction Status Date / Time Iodinated Contrast Media Allergy Severe Hives Verified 09/06/23 13:45 Penicillins Allergy Intermediate HIVES Verified 09/06/23 13:45 Home Meds Home Medications Medication Instructions Recorded Confirmed levothyroxine 50 mcg tablet 50 mcg PO DAILYBB 01/16/22 12/10/23 sennosides 8.6 mg-docusate sodium 1 tab-cap PO AMPM 03/10/22 12/10/23 50 mg capsule (Senna Plus) acetaminophen 650 mg rectal 650 mg MS Q4H PRN Fever Or Pain 04/30/22 12/10/23 suppository magnesium hydroxide 400 mg/5 mL 2,400 mg PO .DAILY UD PRN 04/30/22 12/10/23 oral suspension (Milk of Magnesia) Constipation acetaminophen 325 mg tablet 650 mg PO Q4 PRN Fever Or Pain 06/12/23 12/10/23 (Tylenol) diclofenac sodium 1 % topical gel 2 g topical BID 8 grams 06/12/23 12/10/23 food supplemt, lactose-reduced 1 ea PO BID 06/12/23 12/10/23 melatonin 10 mg tablet 10 mg PO HS 06/12/23 12/10/23 pantoprazole 20 mg tablet,delayed 20 mg PO AMHS 06/12/23 12/10/23 release Theracalazinc Ointment See Rx Instructions .Route .COMPLEX 09/06/23 12/10/23 bisacodyl 10 mg rectal suppository 10 mg MS DAILY PRN Constipation 09/06/23 12/10/23 (Dulcolax (bisacodyl)) dextromethorphan-guaifenesin 10 10 ml PO Q4H PRN Cough 09/06/23 12/10/23 mg-100 mg/5 mL oral syrup (Siltussin-DM) escitalopram oxalate 5 mg tablet 5 mg PO DAILY 09/06/23 12/10/23 gabapentin 100 mg capsule 100 mg PO DAILY 09/06/23 12/10/23 ipratropium 0.5 mg-albuterol 3 mg 3 ml inhalation Q4H PRN cough/SOB 09/06/23 12/10/23 (2.5 mg base)/3 mL nebulization soln ondansetron HCl 4 mg tablet 4 mg PO Q6H PRN Nausea And Vomiting 09/06/23 12/10/23 sodium phosphates 19 gram-7 118 ml MS DAILY PRN Constipation 09/06/23 12/10/23 gram/118 mL enema (Fleet Enema) Previous Rx's Medication Instructions Recorded empagliflozin 10 mg tablet 10 mg PO DAILY #30 tabs 09/15/23 (Jardiance) furosemide 20 mg tablet 20 mg PO QAM #30 tabs 09/15/23 spironolactone 25 mg tablet 12.5 mg (1/2 x 25 mg) PO QAM #30 09/15/23 tabs Results & Data (ED) Vital Signs Vital Signs - 24 hr 12/10/23 05:58 12/10/23 05:59 12/10/23 07:24 Temperature 36.8 C Temperature Source Oral Pulse Rate 113 H 113 H Pulse Rate [Apical] Pulse Rhythm Regular Pulse Strength Normal Respiratory Rate 20 Respiratory Effort / Characteristics Non-Labored Spontaneous Respiratory Depth Normal Respiratory Pattern Regular Blood Pressure 137/58 L Blood Pressure [Right Arm] Blood Pressure Mean 84 Blood Pressure Mean [Right Arm] Blood Pressure Position Sitting Pulse Oximetry 94 95 Oxygen Delivery Method Room Air Room Air Sepsis Recent Fever Within 48 Hours No Sepsis New/Unexplained Change in Mental Status N/A Sepsis Action Taken by Nursing No Action Required 12/10/23 07:58 12/10/23 09:42 12/10/23 09:47 Temperature 35.8 C L Temperature Source Axillary Pulse Rate 122 H Pulse Rate [Apical] 123 H 124 H Pulse Rhythm Pulse Strength Respiratory Rate 12 18 Respiratory Effort / Characteristics Respiratory Depth Respiratory Pattern Blood Pressure Blood Pressure [Right Arm] 143/99 H Blood Pressure Mean Blood Pressure Mean [Right Arm] 113 Blood Pressure Position Pulse Oximetry 94 95 Oxygen Delivery Method Room Air Room Air Sepsis Recent Fever Within 48 Hours Sepsis New/Unexplained Change in Mental Status Sepsis Action Taken by Nursing Laboratory Data 12/10/23 07:15 12/10/23 07:15 Lab Results 12/10/23 12/10/23 12/10/23 Range/Units 07:15 09:23 Unknown WBC 18.92 H (4.8-10.8) K/ul RBC 4.01 L (4.20-5.40) M/uL Hgb 12.2 (12.0-16.0) g/dl Hct 35.5 L (37.0-47.0) % MCV 88.5 (80.0-100.0) fL MCH 30.4 (25.0-34.0) pg MCHC 34.4 (32.0-36.0) g/dL RDW Std Deviation 47.8 H (36.4-46.3) fL RDW Coeff of Charisma 14.8 H (11.5-14.5) % Plt Count 227 (130-400) K/uL MPV 11.0 (9.4-12.4) fL Immature Gran % (Auto) 1.0 % Neut % (Auto) 85.3 % Lymph % (Auto) 7.5 % [place] % (Auto) 5.3 % Eos % (Auto) 0.5 % Baso % (Auto) 0.4 % Neut # (Auto) 16.14 H (1.40-6.50) K/uL Lymph # (Auto) 1.41 (1.20-3.40) K/uL [place] # (Auto) 1.01 H (0.11-0.59) K/uL Eos # (Auto) 0.10 (0.00-0.50) K/uL Baso # (Auto) 0.07 (0.00-0.20) K/uL Immature Gran # (Auto) 0.19 (0.01-0.20) K/uL Sodium 132 L (136-145) mmol/L Potassium 4.6 (3.5-5.1) mmol/L Chloride 96 L (98-107) mmol/L Carbon Dioxide 25 (21-32) mmol/L Anion Gap 11 (3-11) BUN 37 H (6-23) mg/dl Creatinine 1.00 (0.6-1.2) mg/dl Est Cr Clr Drug Dosing Not Reportable Est GFR ( Amer) 57.8 ml/min Est GFR (Non-Af Amer) 49.9 ml/min BUN/Creatinine Ratio 37.0 H (10-20) Glucose 231 H (70-99(Fasting)) mg/dl Lactate 3.8 H* (0.4-2.0) mmol/L Calcium 9.7 (8.6-10.3) mg/dl Total Bilirubin 0.7 (0.2-1.0) mg/dl AST 18 (13-39) U/L ALT 12 (7-52) U/L Alkaline Phosphatase 84 (34-104) U/L Total Protein 7.5 (6.0-8.3) gm/dl Albumin 4.5 (3.4-5.0) gm/dl Globulin 3.0 (2.5-4.0) gm/dl Albumin/Globulin Ratio 1.5 (0.9-2) Urine Color Yellow Urine Appearance Cloudy A (Clear) Urine pH 7.0 (4.5-7.5) Ur Specific [place] 1.023 (1.000-1.030) Urine Protein 2+ H (Negative) Urine Glucose (UA) Negative (Negative) Urine Ketones Trace H (Negative) Urine Blood Negative (Negative) Urine Nitrite Negative (Negative) Urine Bilirubin Negative (Negative) Urine Urobilinogen Negative (Negative) Ur Leukocyte Esterase 2+ H (Negative) Urine WBC (Auto) >30 H (0-5) /hpf Urine RBC (Auto) 0-4 (0-4) /hpf U Hyaline Cast (Auto) 1-5 (0-5) /lpf U Epithel Cells (Auto) 10-20 H (0-5) /lpf Urine Bacteria (Auto) 3+ H (Negative) Administered Medications Sodium Chloride (Nss) 1,000 mls @ 999 mls/hr IV .Q1H1M ONE Stop: 12/10/23 10:42 Last Admin: 12/10/23 09:52 Dose: 999 mls/hr Documented By: GREGORIO Discontinued Medications Sodium Chloride (Nss) 1,000 mls @ 999 mls/hr IV .Q1H1M ONE Stop: 12/10/23 09:22 Last Infusion: 12/10/23 09:38 Dose: Infused Documented By: Admin: 12/10/23 08:32 Dose: 999 mls/hr Documented By: GREGORIO Ceftriaxone Sodium (Rocephin) 2,000 mg in 50 mls @ 100 mls/hr IV NOW STA Stop: 12/10/23 08:51 Last Infusion: 12/10/23 09:02 Dose: Infused Documented By: Admin: 12/10/23 08:32 Dose: 100 mls/hr Documented By: GREGORIO Lorazepam (Lorazepam 1 Mg/1 Ml Syr Ed Inj Use) 1 mg IV ONE STA Stop: 12/10/23 06:48 Last Admin: 12/10/23 07:16 Dose: 1 mg Documented By: GREGORIO Imaging Data Radiologist's Impression: Pelvis X-Ray 12/10/23 06:07 XR pelvis 1-2V routine CLINICAL HISTORY: Left hip pain following injury. COMPARISON: CT of the pelvis March 10, 2022. Pelvis and left hip radiographs April 30, 2022. FINDINGS: This exam is mildly compromised given difficulty positioning. Healed intertrochanteric fracture of the left femur is noted following internal fixation. Old right pubic ring fractures are present. There is no acute proximal femoral fracture. There may be an old deformity of the left pubic ring. IMPRESSION: 1. No definite acute fractures. 2. Deformity of the left pubic bones, age-indeterminate but likely chronic. Old right ischiopubic ring fractures. 3. Healed intertrochanteric fracture of the left femur status post internal fixation. ACT 112: Negative or not required by law. Electronically signed by: Deyvi Casarez M.D. 12/10/2023 6:42 AM Femur X-Ray 12/10/23 06:29 XR femur LT 2V routine CLINICAL HISTORY: Lower Extremity Trauma COMPARISON: Left hip radiographs April 30, 2022. FINDINGS: This exam is compromised given difficulty positioning. Healed intertrochanteric fracture of the left femur is noted status post internal fixation. Intramedullary is present. Hardware is intact. No acute left femoral fracture. IMPRESSION: 1. No acute left femoral fractures. Exam mildly compromised given difficulty positioning. 2. Healed intertrochanteric fracture status post internal fixation. ACT 112: Negative or not required by law. Electronically signed by: Deyvi Casarez M.D. 12/10/2023 6:45 AM Discharge Plan Visit Data Chief Complaint: Fall Stated Complaint: Fall, Back Pain ED Provider: Krystle Garces Discharge Problem: Sepsis, Leukocytosis, Acute UTI (urinary tract infection), Elevated lactic acid level, Fall from standing, Acute pain of left hip Forms Stand Alone Forms: [facility] Prescriptions Prescriptions: No Action levothyroxine 50 mcg tablet 50 mcg PO DAILYBB Rx Instructions: take 1/2 hour before breakfast acetaminophen 650 mg Suppository 650 mg MS Q4H PRN (Reason: Fever Or Pain) Rx Instructions: if unable to swallow po tylenol magnesium hydroxide [Milk of Magnesia] 400 mg/5 mL Suspension 2,400 mg PO .DAILY UD PRN (Reason: Constipation) Rx Instructions: If no BM x 3 days, give on day 4 in the morning ipratropium-albuterol 0.5 mg-3 mg(2.5 mg base)/3 mL solution for nebulization 3 ml INHALATION Q4H PRN (Reason: cough/SOB) ondansetron HCl 4 mg tablet 4 mg PO Q6H PRN (Reason: Nausea And Vomiting) dextromethorphan-guaifenesin [Siltussin-DM] 10-100 mg/5 mL Syrup 10 ml PO Q4H PRN (Reason: Cough) bisacodyl [Dulcolax (bisacodyl)] 10 mg Suppository 10 mg MS DAILY PRN (Reason: Constipation) Rx Instructions: If Milk of Magnesia ineffective on day 5 of no BM Fleet Enema 19-7 gram/118 mL Enema 118 ml MS DAILY PRN (Reason: Constipation) Rx Instructions: If dulcolax suppository not effective on day 6 of no BM gabapentin 100 mg capsule 100 mg PO DAILY escitalopram oxalate 5 mg tablet 5 mg PO DAILY Theracalazinc Ointment See Rx Instructions .ROUTE .COMPLEX Rx Instructions: Apply 1 application to areas on the left hip/thigh every shift for 14 days. Start Date 08/26/2023 - End Date 09/09/23 spironolactone 25 mg Tablet 12.5 mg PO QAM Qty: 30 0RF furosemide 20 mg Tablet 20 mg PO QAM Qty: 30 0RF Jardiance 10 mg Tablet 10 mg PO DAILY Qty: 30 0RF Senna Plus 8.6-50 mg Capsule 1 tab-cap PO AMPM melatonin 10 mg tablet 10 mg PO HS pantoprazole 20 mg Tablet,Delayed Release (Dr/Ec) 20 mg PO AMHS Rx Instructions: give 30 minutes before breakfast and 30 minutes before bedtime acetaminophen [Tylenol] 325 mg Tablet 650 mg PO Q4 MDD 3g PRN (Reason: Fever Or Pain) Rx Instructions: give for mild pain or TEMP > 100 diclofenac sodium 1 % gel 2 g TOPICAL BID Rx Instructions: apply to left hand and left elbow food supplemt, lactose-reduced Liquid 1 ea PO BID Rx Instructions: 240 ml by mouth twice a day Referrals Referrals: Kenna Knapp [Family Provider] -
[2023-12-10] MEDS: LORazepam 1 MG/1 ML SYR ED Inj Use IV STA (07:16)
[2023-12-10 07:37] LABS: Basophils # (auto) 0.07 K/uL (0.00-0.20); Basophils % (auto) 0.4 %; Eosinophils % (auto) 0.5 %; Hematocrit (blood only) 35.5 % (37.0-47.0); Hemoglobin 12.2 g/dl (12.0-16.0); Immature Granulocytes # (auto) 0.19 K/uL (0.01-0.20); Lymphocytes # (auto) 1.41 K/uL (1.20-3.40); Lymphocytes % (auto) 7.5 %; Mean Corpuscular Hemoglobin 30.4 pg (25.0-34.0); Mean Corpuscular Hgb Conc 34.4 g/dL (32.0-36.0); Mean Corpuscular Volume 88.5 fL (80.0-100.0); Monocytes # (auto) 1.01 K/uL (0.11-0.59); Monocytes % (auto) 5.3 %; Neutrophils # (auto) 16.14 K/uL (1.40-6.50); Neutrophils % (auto) 85.3 %; Platelet Count 227 K/uL (130-400); RDW Coefficient of Variation 14.8 % (11.5-14.5); RDW Standard Deviation 47.8 fL (36.4-46.3); Red Blood Count 4.01 M/uL (4.20-5.40); White Blood Count 18.92 K/ul (4.8-10.8)
[2023-12-10 07:52] LABS: Alanine Aminotransferase 12 U/L (7-52); Albumin Globulin Ratio 1.5 (0.9-2); Albumin Level 4.5 gm/dl (3.4-5.0); Alkaline Phosphatase 84 U/L (34-104); Anion Gap 11 (3-11); Aspartate Aminotransferase 18 U/L (13-39); Bilirubin,Total 0.7 mg/dl (0.2-1.0); Blood Urea Nitrogen 37 mg/dl (6-23); Calcium 9.7 mg/dl (8.6-10.3); Carbon Dioxide 25 mmol/L (21-32); Chloride 96 mmol/L (98-107); Est GFR (African American) 57.8 ml/min; Est GFR (Non-African American) 49.9 ml/min; Glucose 231 mg/dl (70-99(Fasting)); Potassium 4.6 mmol/L (3.5-5.1); Sodium 132 mmol/L (136-145); Total Protein 7.5 gm/dl (6.0-8.3)
[2023-12-10 08:17] LABS: Appearance Urine Cloudy (Clear); Bacteria Urine Automated 3+ (Negative); Bilirubin Urine Negative (Negative); Blood Urine Negative (Negative); Color Urine Yellow; Glucose Urine UA Negative (Negative); Ketones Urine Trace (Negative); Leukocyte Esterase Urine 2+ (Negative); Nitrite Urine Negative (Negative); Protein Urine 2+ (Negative); RBC Urine Automated 0-4 /hpf (0-4); Specific Gravity Urine 1.023 (1.000-1.030); Urobilinogen Urine Negative (Negative); WBC Urine Automated >30 /hpf (0-5)
[2023-12-10] MEDS: cefTRIAXone SODIUM 2,000 MG/50 ML BAG IV STA (08:32)
[2023-12-10] MEDS: SODIUM CHLORIDE 0.9% 1,000 ML IV ONE ×2 (08:32→09:52)
[2023-12-10 09:44] VITALS: TEMP 96.4
--- NOTE | 2023-12-10 10:08 | History & Physical Report ---
Date of Service December 10, 2023 Assessment & Plan (1) Sepsis due to urinary tract infection: (2) Alzheimer's dementia: (3) Goals of care, counseling/discussion: (4) HFrEF (heart failure with reduced ejection fraction): (5) Hx of CABG: (6) Type 2 diabetes mellitus: (7) Paroxysmal atrial fibrillation: (8) Dyslipidemia: Plan Ms. Mitchell is an 88 year old female with a complex medical history that includes CAD, H/O CABG x3 in 1984 with a re-do CABG in , Alzheimer's Dementia, CKD IV, H/O TIA/CVA, DM2, Atrial Fibrillation, PAD s/p iliac stent, and HLD. She had a ground-level fall at [facility] and was found at 0230 on the floor; she was last well seen at midnight. She was recently treated for UTI. She is on Hospice at [facility] and currently receiving comfort measures only. She had increased agitation and the staff at [facility] were unable to get her comfortable; family requested a hospital transfer for evaluation. Pelvis and femur x-ray's negative for acute fracture. She received 2LNSB and was started on IV Rocephin. Most recent ECHO from 09/07/23: EF reduced 25-30% with severe kinesis, mild concentric LVH, severe , moderate MR and moderate pHTN. In the ED, leukocytosis 18.92, elevated lactate 3.8. Lengthy conversation held with patient's daughter, Lashawn, . At baseline, pt knows who she is, but when she gets an infection she tends to get quite agitated with the delirium on advanced dementia presentation. She has been regressing with her Dementia age gallegos and has had frequent falls with increasing auditory and visual hallucinations and recognizing/calling out for people that are ''. Discussed options regarding her current care plan. Discussed that we can continue a workup for urosepsis along with treatment with IV antibiotics. Pt daughter indicated that her overall baseline quality of life is quite poor and would like to purely focused on comfort measures. Does not wish to continue any aggressive treatment including blood draws, vital signs, diagnostic testing, or any life-sustaining measures. Confirmed DNR/DNI. As patient was established with [facility] hospice asked case management to call [facility] hospice to see if they would do a bedside evaluation for continuation of care under GIP (general inpatient) status. I met with patient's [facility] hospice nurse Perla at bedside and went over current treatment plan and presentation. [facility] agreed for general inpatient hospice admission. From a symptom management perspective patient with increased agitation. Administered Zyprexa ODT with some improvement of her agitation. It did wear off after some time and patient was given IV Dilaudid low-dose. Patient remains tachycardic in the 120s and hypoxic in the mid 80s. With patient's worsening CHF, progressing dementia, frequent UTIs and falls this patient has poor quality of life as outlined by her family. Focus to be deemed quality versus quantity. Explained that with end-stage dementia with delirium the goal is to administer pain medication with a goal to keep the patient is awake and alert as possible knowing that sedation may occur. Life expectancy is days to a week or so. Should patient stabilize, can entertain a return to [facility] under comfort care measures. Sepsis due to Urinary Tract infection: Comfort Care: Acute Meets sepsis criteria with leukocytosis (18.92), elevated lactate (3.8), tachycardia (122) 2LNSB given in ED; will hold any additional fluids due to HFrEF IV Rocephin given in ED; discontinue IV antibiotics as outlined by family Transition to comfort measures only General inpatient hospice; [facility] to follow daily Alzheimers Dementia with behavioral disturbances: Chronic FAST score all of 6 and 7 up to 7D Was on Hospice and Comfort Measures Transition to comfort measures only here in the hospital General inpatient hospice; [facility] to follow daily Administered Zyprexa ODT 5 mg once; will schedule BID as it helped with agitation Ordered Dilaudid 0.25 IV Q6 PRN; will reassess, low threshold to initiate low dose Dilaudid gtt @ 0.1mg/hour Avoid Morphine due to possible opioid toxicity related to her kidney failure; despite her creatinine being normal today Discontinue all lab draws, vital signs, scheduled medications, and all other life sustaining treatments HFrEF: Chronic Most recent ECHO 09/07/23: EF 25-30%, severe hypokinesis, mild concentric LVH, severe , moderate MR and moderate PHTN Transition to comfort measures only General inpatient hospice; [facility] to follow daily H/O CABG: Chronic CABG x3 1984 with re-do 1999 Disposition: PCP: Tina Loris Code Status: DNR/DNI VTE Prophylaxis: Teds + SCDs for now I spent a total of 87 minutes coordinating, documenting, and providing care for this patient excluding time spent in the performance of separately billed services. All of the aforementioned completed while collaborating with the assigned attending physician for a full treatment plan. Please see their addendum for further details. History of Present Illness Chief Complaint: s/p fall; urosepsis Primary Care Provider: [facility] Ms. Mitchell is an 88 year old female with a complex medical history that includes CAD, H/O CABG x3 in 1984 with a re-do CABG in , Alzheimer's Dementia, CKD IV, H/O TIA/CVA, DM2, Atrial Fibrillation, PAD s/p iliac stent, and HLD. She had a ground-level fall at [facility] and was found at 0230 on the floor; she was last well seen at midnight. She was recently treated for UTI. She is on Hospice at [facility] and currently receiving comfort measures only. She had increased agitation and the staff at [facility] were unable to get her comfortable; family requested a hospital transfer for evaluation. Pelvis and femur x-ray's negative for acute fracture. She received 2LNSB and was started on IV Rocephin. Most recent ECHO from 09/07/23: EF reduced 25-30% with severe kinesis, mild concentric LVH, severe , moderate MR and moderate pHTN. In the ED, leukocytosis 18.92, elevated lactate 3.8. Lengthy conversation held with patient's daughter, Lashawn, . At baseline, pt knows who she is, but when she gets an infection she tends to get quite agitated with the delirium on advanced dementia presentation. She has been regressing with her Dementia age gallegos and has had frequent falls with increasing auditory and visual hallucinations and recognizing/calling out for people that are ''. Discussed options regarding her current care plan. Discussed that we can continue a workup for urosepsis along with treatment with IV antibiotics. Panel indicated that her overall baseline quality of life is quite poor and would like to purely focused on comfort measures. Does not wish to continue any aggressive treatment including blood draws, vital signs, diagnostic testing, or any life-sustaining measures. Confirmed DNR/DNI. As patient was established with [facility] hospice asked case management to call [facility] hospice to see if they would do a bedside evaluation for continuation of care under GIP (general inpatient) status. I met with patient's [facility] hospice nurse Perla at bedside and went over current treatment plan and presentation. [facility] agreed for general inpatient hospice admission. From a symptom management perspective patient with increased agitation. Administered Zyprexa ODT with some improvement of her agitation. It did wear off after some time and patient was given IV Dilaudid low-dose. Patient remains tachycardic in the 120s and hypoxic in the mid 80s. With patient's worsening CHF, progressing dementia, frequent UTIs and falls this patient has poor quality of life as outlined by her family. Focus to be deemed quality versus quantity. Explained that with end-stage dementia with delirium the goal is to administer pain medication with a goal to keep the patient is awake and alert as possible knowing that sedation may occur. [facility] with comfort measures only under GIP admission. Allergies Allergy/AdvReac Type Severity Reaction Status Date / Time Iodinated Contrast Media Allergy Severe Hives Verified 09/06/23 13:45 Penicillins Allergy Intermediate HIVES Verified 09/06/23 13:45 Home Medications Medication Instructions Recorded Confirmed Type levothyroxine 50 mcg tablet 50 mcg PO DAILYBB 01/16/22 12/10/23 History sennosides 8.6 mg-docusate sodium 1 tab-cap PO AMPM 03/10/22 12/10/23 History 50 mg capsule (Senna Plus) acetaminophen 650 mg rectal 650 mg LA Q4H PRN Fever Or Pain 04/30/22 12/10/23 History suppository magnesium hydroxide 400 mg/5 mL 2,400 mg PO .DAILY UD PRN 04/30/22 12/10/23 History oral suspension (Milk of Magnesia) Constipation acetaminophen 325 mg tablet 650 mg PO Q4 PRN Fever Or Pain 06/12/23 12/10/23 History (Tylenol) diclofenac sodium 1 % topical gel 2 g topical BID 8 grams 06/12/23 12/10/23 History food supplemt, lactose-reduced 1 ea PO BID 06/12/23 12/10/23 History melatonin 10 mg tablet 10 mg PO HS 06/12/23 12/10/23 History pantoprazole 20 mg tablet,delayed 20 mg PO AMHS 06/12/23 12/10/23 History release Theracalazinc Ointment See Rx Instructions .Route .COMPLEX 09/06/23 12/10/23 History bisacodyl 10 mg rectal suppository 10 mg LA DAILY PRN Constipation 09/06/23 12/10/23 History (Dulcolax (bisacodyl)) dextromethorphan-guaifenesin 10 10 ml PO Q4H PRN Cough 09/06/23 12/10/23 History mg-100 mg/5 mL oral syrup (Siltussin-DM) escitalopram oxalate 5 mg tablet 5 mg PO DAILY 09/06/23 12/10/23 History gabapentin 100 mg capsule 100 mg PO DAILY 09/06/23 12/10/23 History ipratropium 0.5 mg-albuterol 3 mg 3 ml inhalation Q4H PRN cough/SOB 09/06/23 12/10/23 History (2.5 mg base)/3 mL nebulization soln ondansetron HCl 4 mg tablet 4 mg PO Q6H PRN Nausea And Vomiting 09/06/23 12/10/23 History sodium phosphates 19 gram-7 118 ml LA DAILY PRN Constipation 09/06/23 12/10/23 History gram/118 mL enema (Fleet Enema) empagliflozin 10 mg tablet 10 mg PO DAILY #30 tabs 09/15/23 12/10/23 Rx (Jardiance) furosemide 20 mg tablet 20 mg PO QAM #30 tabs 09/15/23 12/10/23 Rx spironolactone 25 mg tablet 12.5 mg (1/2 x 25 mg) PO QAM #30 09/15/23 12/10/23 Rx tabs Past Med/Surg History Medical History (Updated 12/10/23 @ 10:25 by Krystle Garces MD) HFrEF (heart failure with reduced ejection fraction) Goals of care, counseling/discussion Sepsis due to urinary tract infection Acute on chronic heart failure with preserved ejection fraction (HFpEF) Osteoarthritis CKD (chronic kidney disease), stage III Acute UTI (urinary tract infection) Fall Dementia Recurrent falls DVT prophylaxis CKD (chronic kidney disease) Aortic stenosis, severe Urinary incontinence Mild cognitive impairment History of pneumonia Acute GI bleeding Anticoagulant long-term use H/O non-ST elevation myocardial infarction (NSTEMI) Chronic diastolic congestive heart failure Anemia Anxiety CVA (cerebral vascular accident) Dyslipidemia Essential hypertension GERD without esophagitis Hypothyroidism Paroxysmal atrial fibrillation Type 2 diabetes mellitus TIA (transient ischemic attack) CAD (coronary artery disease) Surgical History Status post carotid surgery L CEA History of hysterectomy S/P lumpectomy of breast S/P cardiac pacemaker procedure Status post cholecystectomy Hx of CABG Family History Family/Other No problems noted. Brother Cardiac disorder Stroke Hypertension Lung disease Mother Stroke Father Stroke Sister Lung cancer Malignant neoplasm of urinary bladder Denies family history of Colon cancer Ovarian cancer Prostate cancer Myocardial infarction Breast cancer Social History Smoking Status: Unknown if ever smoked Age Started Using Tobacco: 17; Age Quit Using Tobacco: 29; packs per day: 0.5; Second Hand Exposure: No; Do You Dip or Chew Tobacco: No; Hx Alcohol Use: No Hx Substance Use: No Preferred Language: Maltese Communication Ability: Unable Communication Ability Comment: hard of hearing Visual Impairment: Limited Hearing Ability: Use of Hearing Aid Agricultural Production Engineer Required: No Beliefs That Will Affect Care: None marital status: / Current Living Situation: Assisted Current Living Situation Comment: [place] current occupational status: retired How many Children do You have: 2 Feels Safe at Home: Yes Childhood Exposure to Second-Hand Smoke: Yes Diet: regular caffeine: Yes during the past year weight has: remained stable Dental Care, Regularly: Yes Physical Activity Frequency: Other Physical Activity Frequency Comment: limited by phusical condition Seatbelt Use: always Sunscreen Use: No Assistive Devices: Walker and Wheelchair Review of Systems Review of Systems: Unobtainable due to cognitive status Physical Exam Physical Exam: Neuro: AAOx1, PERRLA, no aphagia HEENT: head normocephalic, dry mucus membranes CV: S1/S2, (+) M (-) G/R, (-) edema, cap refill < 3 seconds Resp: Lungs decreased in all bradshaw. On 4LNC GI: Abdomen S/NT/ND, Ax4 bowel sounds, (-) CVA tenderness Musculoskeletal: unable to assess due to agitation. able to move all extremities Skin: (-) rashes , (-) erythema. Psych: agitated mood Results & Data Results & Data Vital Signs (Past 12 Hours) Vital Signs Temp Pulse Pulse Resp BP BP Pulse Ox 12/10/23 09:47 122 H 12/10/23 09:42 35.8 C L 124 H 18 95 12/10/23 07:58 123 H 12 143/99 H 94 12/10/23 07:24 95 12/10/23 05:59 36.8 C 113 H 20 137/58 L 94 12/10/23 05:58 113 H O2 Del Method 12/10/23 09:47 12/10/23 09:42 Room Air 12/10/23 07:58 Room Air 12/10/23 07:24 Room Air 12/10/23 05:59 Room Air 12/10/23 05:58 Laboratory Results Short CBC 12/10/23 Range/Units 07:15 WBC 18.92 H (4.8-10.8) K/ul Hgb 12.2 (12.0-16.0) g/dl Hct 35.5 L (37.0-47.0) % Plt Count 227 (130-400) K/uL BMP 12/10/23 07:15 Sodium 132 L Potassium 4.6 Chloride 96 L Carbon Dioxide 25 BUN 37 H Creatinine 1.00 Glucose 231 H Calcium 9.7 Liver Function 12/10/23 Range/Units 07:15 Total Bilirubin 0.7 (0.2-1.0) mg/dl AST 18 (13-39) U/L ALT 12 (7-52) U/L Alkaline Phosphatase 84 (34-104) U/L Albumin 4.5 (3.4-5.0) gm/dl Urine 12/10/23 Range/Units Unknown Urine Color Yellow Urine Appearance Cloudy A (Clear) Urine pH 7.0 (4.5-7.5) Ur Specific [place] 1.023 (1.000-1.030) Urine Protein 2+ H (Negative) Urine Glucose (UA) Negative (Negative) Diagnostic Findings Pelvis X-Ray 12/10/23 06:07 XR pelvis 1-2V routine CLINICAL HISTORY: Left hip pain following injury. COMPARISON: CT of the pelvis March 10, 2022. Pelvis and left hip radiographs April 30, 2022. FINDINGS: This exam is mildly compromised given difficulty positioning. Healed intertrochanteric fracture of the left femur is noted following internal fixation. Old right pubic ring fractures are present. There is no acute proximal femoral fracture. There may be an old deformity of the left pubic ring. IMPRESSION: 1. No definite acute fractures. 2. Deformity of the left pubic bones, age-indeterminate but likely chronic. Old right ischiopubic ring fractures. 3. Healed intertrochanteric fracture of the left femur status post internal fixation. ACT 112: Negative or not required by law. Electronically signed by: Deyvi Casarez M.D. 12/10/2023 6:42 AM Femur X-Ray 12/10/23 06:29 XR femur LT 2V routine CLINICAL HISTORY: Lower Extremity Trauma COMPARISON: Left hip radiographs April 30, 2022. FINDINGS: This exam is compromised given difficulty positioning. Healed intertrochanteric fracture of the left femur is noted status post internal fixation. Intramedullary is present. Hardware is intact. No acute left femoral fracture. IMPRESSION: 1. No acute left femoral fractures. Exam mildly compromised given difficulty positioning. 2. Healed intertrochanteric fracture status post internal fixation. ACT 112: Negative or not required by law. Electronically signed by: Deyvi Casarez M.D. 12/10/2023 6:45 AM Code Status & VTE Plan Code Status DNR/DNI in the event of cardiac or respiratory arrest VTE Prophylaxis Plan VTE Prophylaxis will be ordered: Yes Supervising Physician Co-Signing Physician Notes Pt was seen and examined. Agreed with Holly GALLEGOS exam, assessment and plan. 88 year old female with a complex medical history that includes CAD, H/O CABG x3 in 1984 with a re-do CABG in , Alzheimer's Dementia, CKD IV, H/O TIA/CVA, DM2, Atrial Fibrillation, PAD s/p iliac stent, and HLD on comfort care was brought to the ED after she had a fall in the middle of the night. History obtained from the chart and granddaughter at bedside. Currenty she is on hospice care at [facility]. As per granddaughter is more agitated today. Pt has been screaming and Staff has been unable to get her comfortable. Lab done in the ER showed WBC 18.9, lactate 3.8. UA positive for leukocytes, WBC and bacteria. Xray of hip and pelvis showed no fracture. Received IVF and IV ceftriaxone and dilaudid. Due to pt declined, family would like to transition to comfort care only. Granddaughter would like to discontinue any lab draw, IV abx therapy. [facility] hospice was contacted. Will continue monitor and keep comfortable until discharging back to [facility] on comfort care measures. MD Kishore
--- NOTE | 2023-12-10 10:36 | XRay Report ---
XR chest 1V portable CLINICAL HISTORY: Sepsis. COMPARISON STUDY: Chest radiograph September 12, 2023. FINDINGS: Right subclavian pacer, median sternotomy wires and mediastinal surgical clips are in place . Moderate cardiomegaly is unchanged. There is no evidence for pulmonary edema. No pneumothorax or pl eural effusion. No consolidation to suggest pneumonia. IMPRESSION: No acute cardiopulmonary findings. ACT 112: Negative or not required by law. Electronically signed by: Deyvi Casarez M.D. 12/10/2023 10:35 AM
[2023-12-10 10:43] LABS: Influenza A virus by PCR Negative (Neg); Influenza B virus by PCR Negative (Neg); RSV by PCR Negative (Neg); SARS CoV2 RNA(COVID-19) Ceph NEGATIVE (Negative)
[2023-12-10] MEDS: OLANZapine 5 MG TABLET PO STA (11:08)
[2023-12-10 11:14] VITALS: BP 92/53
[2023-12-10] MEDS ORDERED: ALUMINUM/MAGNESIUM SUSP 30 ML UDC PO PRN (11:28)
[2023-12-10] MEDS ORDERED: ACETAMINOPHEN 325 MG TAB PO PRN (11:28)
[2023-12-10] MEDS ORDERED: MAGNESIUM HYDROXIDE SUSP 30 ML UDC PO PRN (11:28)
[2023-12-10] MEDS ORDERED: POLYETHYLENE (MIRALAX) 17 GM PACK PO PRN (11:28)
[2023-12-10] MEDS: HYDROmorphone INJ 0.5 MG/0.5 ML SYR IV PRN (11:57)
[2023-12-10] MEDS: ONDANSETRON INJ 2 MG/ML 2 ML VIAL IV PRN (15:09)
[2023-12-10 15:23] VITALS: PULSE 113; RESP 22; O2SAT 100
--- NOTE | 2023-12-10 16:47 | Electrocardiogram Report ---
Test Reason : Blood Pressure : / mmHG Vent. Rate : 131 BPM Atrial Rate : 000 BPM P-R Int : 000 ms QRS Dur : 150 ms QT Int : 354 ms P-R-T Axes : 000 -60 052 degrees QTc Int : 522 ms Atrial fibrillation with rapid ventricular response Right bundle branch block Left anterior fascicular block Bifascicular block Abnormal ECG Confirmed by Darrell Reyes ([id number]) on 12/10/2023 4:46:39 PM Referred By: Mckinley Bella Confirmed By:Prasanna Reyes
[2023-12-10] MEDS: HYDROmorphone INJ 0.5 MG/0.5 ML SYR IV SCH (18:34)
[2023-12-10] MEDS: OLANZapine 5 MG TABLET PO SCH (21:45)
--- OUTSIDE RECORDS SUMMARY | 2023-12-11 11:48 | External Medical Summary | Continuity Of Care Document ---
Author Name Unknown Address [address] [place] [address] Organization [facility] ( ) Care Team Providers Care Electrical Hardware Engineer Name Role Phone Saida Moon Primary Care Provider [phone] Problems Code Description Start Date End Date Status S02.2XXD Fracture of nasal eden oneil, subsequent encounter for fracture with routine healing 09/15/2023 Active J96.01 Acute respiratory failure with hypoxia 09/15/20 Active I50.23 Acute on chronic sys tolic (congestive) heart failure 09/15/2023 Active G30.9 Alzheimer's disease, unspecified 09/15/2023 Active I48.0 Paroxysmal atrial fibrillation 09/15/2023 Active E03.9 Hypothyroidism, unspecified 09/15/2023 00 Active G93.41 Metabolic encephalopathy 06/15/2023 Active N39.0 Urinary tract infection, site not specified Active Z86.73 Personal history of transient ischemic attack (TIA), and cerebral infarction without residual deficits 06/15/2023 Active E11.9 Type 2 diabetes mellitus without complications 06/15/2023 Active I48.91 Unspecified atrial fibrillation 06/15/2023 Active S72.001D Fracture of unspecif ied part of neck of right femur, subsequent encounter for closed fracture with routine healing 03/11/2022 Active S00.03XA Contusion of scalp, initial encounter Active D72.829 Elevated white blood cell count, unspecified Active R29.6 Repeated falls 01/20/2022 Active K30. 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 01/20/2022 Active Z95.0 Presence of cardiac pacemaker 01/20/2022 Active Z95.1 Presence of aortocoronary bypass graft 01/21/20 Active K20.90 Esophagitis, unspecified without bleeding 01/20 Active I25.10 Atherosclerotic hear t disease of [place] coronary artery without angina pectoris 03/11/2022 Active [...] weight Temperature SpO2 Blood Sugar Pulse Respirations 107 96236 3 105.00 NI 107 65104 8 71.00 mm[Hg] - Sitting 129.00 mm[Hg] - Sitting 97.20 Ear 96.00/ min 129 46322 3 48.00 mm[Hg] - Sitting 108.00 mm[Hg] - Sitting 98.00 NI 99.80 Ear 94.00 % 16.00/min 129 58138 9 48.00 mm[Hg] - Sitting 108.00 mm[Hg] - Sitting 97.90 Ear 94.00 % 69.00/ min 130 62260 8 62.00 mm[Hg] - Sitting 126.00 mm[Hg] - Sitting 98.90 Oral 95.00 % 88.00/ min Immunizations Vaccine Date Status COVID-19 12/16/2020 Completed COVID-19 01/06/2021 Completed COVID-19 10/02/2021 Completed COVID-19 04/02/2022 Completed COVID-19 07/30/2022 Completed Influenza 08/20/2021 Completed Influenza 08/09/2022 Completed Influenza 08/04/2023 Completed (PCV13)Pneumococcal 02/05/2016 Completed (PPSV23)Pneumococcal 03/24/2022 Resident Re fused (PCV20)Pneumococcal 07/07/2023 Family Refus ed
--- OUTSIDE RECORDS SUMMARY | 2023-12-11 11:48 | External Medical Summary | Continuity Of Care Document ---
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, severe, with psychotic disturbance 09/22/2023 Active E11.22 Type 2 diabetes libra itus with diabetic chronic kidney disease 09/22/2023 Active N18.31 Chronic kidney disease, stage 3a 09/22/2023 Active R13.11 Dysphagia, oral phase 06/22/2023 Act [...] weight Temperature SpO2 Blood Sugar Pulse Respirations 07169 125 38096 3 98.10 Ear 26504 125 61284 5 98.10 Ear 87704 125 57294 8 98.20 Ear 06833 127 52034 0 97.70 Ear 14452 127 79868 4 98.10 Oral 84653 128 00365 2 97.70 Ear 63711 128 60053 2 97.70 Ear 47122 128 05085 0 97.00 Oral 74236 129 11825 8 96.80 Oral 37166 129 31796 0 98.10 Ear 08728 130 61559 4 98.10 Ear 72106 130 90790 6 97.40 Oral 80755 131 24755 0 98.70 Ear 22256 131 34345 4 97.40 Ear 00642 131 78747 8 97.20 Ear 25582 131 90483 0 98.10 Ear 89990 201 30395 7 97.80 Ear 59892 201 01862 3 97.90 Ear 82936 202 51544 0 97.80 Ear 96305 203 28153 1 98.40 Ear 09561 203 48047 7 98.40 Ear 16679 203 95909 1 97.70 Ear 12072 203 22766 5 97.40 Ear 39034 203 77859 6 97.80 Ear 30420 203 29084 8 97.60 Ear 27852 206 89555 2 61.00 mm[Hg] - Sitting 114.00 mm[Hg] - Sitting 97.80 Ear 87.00/ min Immunizations Vaccine Date Status COVID-19 12/16/2020 Completed COVID-19 01/06/2021 Completed COVID-19 10/02/2021 Completed COVID-19 04/02/2022 Completed COVID-19 07/30/2022 Completed COVID-19 08/17/2023 Completed Influenza 08/20/2021 Completed Influenza 08/09/2022 Completed Influenza 08/04/2023 Completed (PCV13)Pneumococcal 02/05/2016 Completed (PPSV23)Pneumococcal 03/24/2022 Resident Re fused (PCV20)Pneumococcal 07/07/2023 Family Refus ed
--- OUTSIDE RECORDS SUMMARY | 2023-12-11 11:48 | External Medical Summary | Continuity Of Care Document ---
Author Name Unknown Address [address] [place] [address] Organization [facility] ( ) Care Team Providers Care Psychologist Research Assistant Name Role Phone Saida Moon Primary Care Provider [phone] Problems Code Description Start Date End Date [...] Active I25.10 Atherosclerotic hear t disease of [place] coronary artery without angina pectoris 03/11/2022 Active [...] Temperature SpO2 Blood Sugar Pulse Respirations 107 97781 3 105.00 NI 107 46109 8 71.00 mm[Hg] - Sitting 129.00 mm[Hg] - Sitting 97.20 Ear 96.00/ min 129 93794 3 48.00 mm[Hg] - Sitting 108.00 mm[Hg] - Sitting 98.00 NI 99.80 Ear 94.00 % 16.00/min 129 27003 9 48.00 mm[Hg] - Sitting 108.00 mm[Hg] - Sitting 97.90 Ear 94.00 % 69.00/ min 130 56829 8 34845 130 50558 8 62.00 mm[Hg] - Sitting 126.00 mm[Hg] - Sitting 98.90 Oral 95.00 % 88.00/ min 130 68924 6 99.00 NI 130 46463 6 62.00 mm[Hg] - Lying Down 126.00 mm[Hg] - Lying Down 98.90 Ear 88.00/ min 16.00/min 130 26366 6 70.00 mm[Hg] - Sitting 124.00 mm[Hg] - Sitting 97.40 Oral 91.00 % 88.00/ min 201 60522 7 70.00 mm[Hg] - Sitting 126.00 mm[Hg] - Sitting 97.90 Ear 80.00/ min 18.00/min 201 16853 0 69.00 mm[Hg] - Sitting 125.00 mm[Hg] - Sitting 96.20 Oral 94.00 % 94.00/ min 201 81066 9 201 75298 6 69.00 mm[Hg] - Sitting 125.00 mm[Hg] - Sitting 96.20 Ear 94.00/ min 18.00/min 201 69146 3 70.00 mm[Hg] - Sitting 126.00 mm[Hg] - Sitting 97.90 X-Other 97.00 % 80.00/ min 202 00984 8 70.00 mm[Hg] - Sitting 126.00 mm[Hg] - Sitting 97.90 Ear 80.00/ min 18.00/min 202 73675 0 62.00 mm[Hg] - Sitting 147.00 mm[Hg] - Sitting 96.20 Ear 93.00 % 73.00/ min 202 85197 5 62.00 mm[Hg] - Sitting 147.00 mm[Hg] - Sitting 96.20 Ear 73.00/ min 16.00/min 202 40847 5 62.00 mm[Hg] - Sitting 119.00 mm[Hg] - Sitting 97.80 Oral 93.00 % 81.00/ min 203 73751 6 62.00 mm[Hg] - Sitting 119.00 mm[Hg] - Sitting 97.80 Oral 81.00/ min 18.00/min 203 62125 4 67.00 mm[Hg] - Sitting 112.00 mm[Hg] - Sitting 97.90 Ear 97.00 % 67.00/ min 203 08093 3 68.00 mm[Hg] - Sitting 121.00 mm[Hg] - Sitting 97.40 Ear 96.00 % 86.00/ min 204 99012 3 69.00 mm[Hg] - Sitting 116.00 mm[Hg] - Sitting 97.10 Ear 92.00 % 84.00/ min 205 91126 8 71.00 mm[Hg] - Sitting 130.00 mm[Hg] - Sitting 96.90 Ear 65.00/ min 205 55335 4 95.00 NI Immunizations Vaccine Date Status COVID-19 12/16/2020 Completed COVID-19 01/06/2021 Completed COVID-19 10/02/2021 Completed COVID-19 04/02/2022 Completed COVID-19 07/30/2022 Completed Influenza 08/20/2021 Completed Influenza 08/09/2022 Completed Influenza 08/04/2023 Completed (PCV13)Pneumococcal 02/05/2016 Completed (PPSV23)Pneumococcal 03/24/2022 Resident Re fused (PCV20)Pneumococcal 07/07/2023 Family Refus ed
--- OUTSIDE RECORDS SUMMARY | 2023-12-11 11:48 | External Medical Summary | Continuity Of Care Document ---
Author Name Unknown Address [address] [place] [address] Organization [facility] ( ) Care Team Providers Care Lambskin Trimmer Name Role Phone Saida Moon Primary Care Provider [phone] Problems Code Description Start Date End Date [...] Active I25.10 Atherosclerotic hear t disease of [place] coronary artery without angina pectoris 03/11/2022 Active [...] Temperature SpO2 Blood Sugar Pulse Respirations 107 30968 3 105.00 NI 107 54944 8 71.00 mm[Hg] - Sitting 129.00 mm[Hg] - Sitting 97.20 Ear 96.00/ min 129 48721 3 48.00 mm[Hg] - Sitting 108.00 mm[Hg] - Sitting 98.00 NI 99.80 Ear 94.00 % 16.00/min 129 47067 9 48.00 mm[Hg] - Sitting 108.00 mm[Hg] - Sitting 97.90 Ear 94.00 % 69.00/ min 130 54327 8 33374 130 54665 8 62.00 mm[Hg] - Sitting 126.00 mm[Hg] - Sitting 98.90 Oral 95.00 % 88.00/ min 130 69286 6 99.00 NI 130 03390 6 62.00 mm[Hg] - Lying Down 126.00 mm[Hg] - Lying Down 98.90 Ear 88.00/ min 16.00/min 130 22975 6 70.00 mm[Hg] - Sitting 124.00 mm[Hg] - Sitting 97.40 Oral 91.00 % 88.00/ min 201 10388 7 70.00 mm[Hg] - Sitting 126.00 mm[Hg] - Sitting 97.90 Ear 80.00/ min 18.00/min 201 48812 0 69.00 mm[Hg] - Sitting 125.00 mm[Hg] - Sitting 96.20 Oral 94.00 % 94.00/ min 201 68305 9 201 23471 6 69.00 mm[Hg] - Sitting 125.00 mm[Hg] - Sitting 96.20 Ear 94.00/ min 18.00/min 201 76673 3 70.00 mm[Hg] - Sitting 126.00 mm[Hg] - Sitting 97.90 X-Other 97.00 % 80.00/ min 202 54026 8 70.00 mm[Hg] - Sitting 126.00 mm[Hg] - Sitting 97.90 Ear 80.00/ min 18.00/min 202 90086 0 62.00 mm[Hg] - Sitting 147.00 mm[Hg] - Sitting 96.20 Ear 93.00 % 73.00/ min 202 25809 5 62.00 mm[Hg] - Sitting 147.00 mm[Hg] - Sitting 96.20 Ear 73.00/ min 16.00/min 202 84240 5 62.00 mm[Hg] - Sitting 119.00 mm[Hg] - Sitting 97.80 Oral 93.00 % 81.00/ min 203 73119 6 62.00 mm[Hg] - Sitting 119.00 mm[Hg] - Sitting 97.80 Oral 81.00/ min 18.00/min 203 22349 4 67.00 mm[Hg] - Sitting 112.00 mm[Hg] - Sitting 97.90 Ear 97.00 % 67.00/ min 203 51656 3 68.00 mm[Hg] - Sitting 121.00 mm[Hg] - Sitting 97.40 Ear 96.00 % 86.00/ min Immunizations Vaccine Date Status COVID-19 12/16/2020 Completed COVID-19 01/06/2021 Completed COVID-19 10/02/2021 Completed COVID-19 04/02/2022 Completed COVID-19 07/30/2022 Completed Influenza 08/20/2021 Completed Influenza 08/09/2022 Completed Influenza 08/04/2023 Completed (PCV13)Pneumococcal 02/05/2016 Completed (PPSV23)Pneumococcal 03/24/2022 Resident Re fused (PCV20)Pneumococcal 07/07/2023 Family Refus ed
--- OUTSIDE RECORDS SUMMARY | 2023-12-11 11:48 | External Medical Summary | Continuity Of Care Document ---
Author Name Unknown Address [address] [place] [address] Organization [facility] ( ) Care Team Providers Care Public Relations Manager Name Role Phone Saida Moon Primary Care Provider [phone] Problems Code Description Start Date End Date [...] Active I25.10 Atherosclerotic hear t disease of [place] coronary artery without angina pectoris 03/11/2022 Active [...] Temperature SpO2 Blood Sugar Pulse Respirations 107 09716 3 105.00 NI 107 72413 8 71.00 mm[Hg] - Sitting 129.00 mm[Hg] - Sitting 97.20 Ear 96.00/ min 129 97118 3 48.00 mm[Hg] - Sitting 108.00 mm[Hg] - Sitting 98.00 NI 99.80 Ear 94.00 % 16.00/min 129 81517 9 48.00 mm[Hg] - Sitting 108.00 mm[Hg] - Sitting 97.90 Ear 94.00 % 69.00/ min 130 02908 8 91465 130 97220 8 62.00 mm[Hg] - Sitting 126.00 mm[Hg] - Sitting 98.90 Oral 95.00 % 88.00/ min 130 28565 6 99.00 NI 130 65491 6 62.00 mm[Hg] - Lying Down 126.00 mm[Hg] - Lying Down 98.90 Ear 88.00/ min 16.00/min 130 52380 6 70.00 mm[Hg] - Sitting 124.00 mm[Hg] - Sitting 97.40 Oral 91.00 % 88.00/ min 201 04143 7 70.00 mm[Hg] - Sitting 126.00 mm[Hg] - Sitting 97.90 Ear 80.00/ min 18.00/min 201 47940 0 69.00 mm[Hg] - Sitting 125.00 mm[Hg] - Sitting 96.20 Oral 94.00 % 94.00/ min 201 30312 9 201 90125 6 69.00 mm[Hg] - Sitting 125.00 mm[Hg] - Sitting 96.20 Ear 94.00/ min 18.00/min 201 55671 3 70.00 mm[Hg] - Sitting 126.00 mm[Hg] - Sitting 97.90 X-Other 97.00 % 80.00/ min 202 50163 8 70.00 mm[Hg] - Sitting 126.00 mm[Hg] - Sitting 97.90 Ear 80.00/ min 18.00/min 202 42944 0 62.00 mm[Hg] - Sitting 147.00 mm[Hg] - Sitting 96.20 Ear 93.00 % 73.00/ min 202 99298 5 62.00 mm[Hg] - Sitting 147.00 mm[Hg] - Sitting 96.20 Ear 73.00/ min 16.00/min 202 67972 5 62.00 mm[Hg] - Sitting 119.00 mm[Hg] - Sitting 97.80 Oral 93.00 % 81.00/ min 203 82319 6 62.00 mm[Hg] - Sitting 119.00 mm[Hg] - Sitting 97.80 Oral 81.00/ min 18.00/min 203 76958 4 67.00 mm[Hg] - Sitting 112.00 mm[Hg] - Sitting 97.90 Ear 97.00 % 67.00/ min 203 44850 3 68.00 mm[Hg] - Sitting 121.00 mm[Hg] - Sitting 97.40 Ear 96.00 % 86.00/ min 204 22630 3 69.00 mm[Hg] - Sitting 116.00 mm[Hg] - Sitting 97.10 Ear 92.00 % 84.00/ min 205 16095 8 71.00 mm[Hg] - Sitting 130.00 mm[Hg] - Sitting 96.90 Ear 65.00/ min 205 57032 4 95.00 NI Immunizations Vaccine Date Status COVID-19 12/16/2020 Completed COVID-19 01/06/2021 Completed COVID-19 10/02/2021 Completed COVID-19 04/02/2022 Completed COVID-19 07/30/2022 Completed Influenza 08/20/2021 Completed Influenza 08/09/2022 Completed Influenza 08/04/2023 Completed (PCV13)Pneumococcal 02/05/2016 Completed (PPSV23)Pneumococcal 03/24/2022 Resident Re fused (PCV20)Pneumococcal 07/07/2023 Family Refus ed
--- OUTSIDE RECORDS SUMMARY | 2023-12-11 11:48 | External Medical Summary | Continuity Of Care Document ---
Author Name Unknown Address [address] [place] [address] Organization [facility] ( ) Care Team Providers Care Brick Pointer Name Role Phone Saida Moon Primary Care Provider [phone] Problems Code Description Start Date End Date [...] Active I25.10 Atherosclerotic hear t disease of [place] coronary artery without angina pectoris 03/11/2022 Active [...] Temperature SpO2 Blood Sugar Pulse Respirations 107 75886 3 105.00 NI 107 54011 8 71.00 mm[Hg] - Sitting 129.00 mm[Hg] - Sitting 97.20 Ear 96.00/ min 129 77360 3 48.00 mm[Hg] - Sitting 108.00 mm[Hg] - Sitting 98.00 NI 99.80 Ear 94.00 % 16.00/min 129 95153 9 48.00 mm[Hg] - Sitting 108.00 mm[Hg] - Sitting 97.90 Ear 94.00 % 69.00/ min 130 41909 8 02853 130 73529 8 62.00 mm[Hg] - Sitting 126.00 mm[Hg] - Sitting 98.90 Oral 95.00 % 88.00/ min 130 40049 6 99.00 NI 130 27523 6 62.00 mm[Hg] - Lying Down 126.00 mm[Hg] - Lying Down 98.90 Ear 88.00/ min 16.00/min 130 56063 6 70.00 mm[Hg] - Sitting 124.00 mm[Hg] - Sitting 97.40 Oral 91.00 % 88.00/ min 201 92580 7 70.00 mm[Hg] - Sitting 126.00 mm[Hg] - Sitting 97.90 Ear 80.00/ min 18.00/min 201 42750 0 69.00 mm[Hg] - Sitting 125.00 mm[Hg] - Sitting 96.20 Oral 94.00 % 94.00/ min 201 16841 9 201 59203 6 69.00 mm[Hg] - Sitting 125.00 mm[Hg] - Sitting 96.20 Ear 94.00/ min 18.00/min 201 31867 3 70.00 mm[Hg] - Sitting 126.00 mm[Hg] - Sitting 97.90 X-Other 97.00 % 80.00/ min 202 76527 8 70.00 mm[Hg] - Sitting 126.00 mm[Hg] - Sitting 97.90 Ear 80.00/ min 18.00/min 202 62743 0 62.00 mm[Hg] - Sitting 147.00 mm[Hg] - Sitting 96.20 Ear 93.00 % 73.00/ min 202 75816 5 62.00 mm[Hg] - Sitting 147.00 mm[Hg] - Sitting 96.20 Ear 73.00/ min 16.00/min 202 31129 5 62.00 mm[Hg] - Sitting 119.00 mm[Hg] - Sitting 97.80 Oral 93.00 % 81.00/ min 203 04861 6 62.00 mm[Hg] - Sitting 119.00 mm[Hg] - Sitting 97.80 Oral 81.00/ min 18.00/min 203 79526 4 67.00 mm[Hg] - Sitting 112.00 mm[Hg] - Sitting 97.90 Ear 97.00 % 67.00/ min 203 88701 3 68.00 mm[Hg] - Sitting 121.00 mm[Hg] - Sitting 97.40 Ear 96.00 % 86.00/ min 204 27267 3 69.00 mm[Hg] - Sitting 116.00 mm[Hg] - Sitting 97.10 Ear 92.00 % 84.00/ min 205 47574 8 71.00 mm[Hg] - Sitting 130.00 mm[Hg] - Sitting 96.90 Ear 65.00/ min 205 76260 4 95.00 NI Immunizations Vaccine Date Status COVID-19 12/16/2020 Completed COVID-19 01/06/2021 Completed COVID-19 10/02/2021 Completed COVID-19 04/02/2022 Completed COVID-19 07/30/2022 Completed Influenza 08/20/2021 Completed Influenza 08/09/2022 Completed Influenza 08/04/2023 Completed (PCV13)Pneumococcal 02/05/2016 Completed (PPSV23)Pneumococcal 03/24/2022 Resident Re fused (PCV20)Pneumococcal 07/07/2023 Family Refus ed
--- OUTSIDE RECORDS SUMMARY | 2023-12-11 11:48 | External Medical Summary | Continuity Of Care Document ---
Author Name Unknown Address [address] [place] [address] Organization [facility] ( ) Care Team Providers Care Protective Clothing Issuer Name Role Phone Saida Moon Primary Care Provider [phone] VITAL SIGNS Date Time Diastolic blood pressure Systolic blood pressure Body height Body weight Temperature SpO2 Blood Sugar Pulse Respirations 107 37160 3 105.00 NI 107 76487 8 71.00 mm[Hg] - Sitting 129.00 mm[Hg] - Sitting 97.20 Ear 96.00/ min 129 84673 3 48.00 mm[Hg] - Sitting 108.00 mm[Hg] - Sitting 98.00 NI 99.80 Ear 94.00 % 16.00/min 129 70656 9 48.00 mm[Hg] - Sitting 108.00 mm[Hg] - Sitting 97.90 Ear 94.00 % 69.00/ min Immunizations Vaccine Date Status COVID-19 12/16/2020 Completed COVID-19 01/06/2021 Completed COVID-19 10/02/2021 Completed COVID-19 04/02/2022 Completed COVID-19 07/30/2022 Completed Influenza 08/20/2021 Completed Influenza 08/09/2022 Completed Influenza 08/04/2023 Completed (PCV13)Pneumococcal 02/05/2016 Completed (PPSV23)Pneumococcal 03/24/2022 Resident Re fused (PCV20)Pneumococcal 07/07/2023 Family Refus ed
--- OUTSIDE RECORDS SUMMARY | 2023-12-11 11:48 | External Medical Summary | Continuity Of Care Document ---
Author Name Unknown Address [address] [place] [address] Organization [facility] ( ) Care Team Providers Care Nonfarm Animal Caretaker Name Role Phone Saida Moon Primary Care Provider [phone] Problems Code Description Start Date End Date [...] Active I25.10 Atherosclerotic hear t disease of [place] coronary artery without angina pectoris 03/11/2022 Active [...] Temperature SpO2 Blood Sugar Pulse Respirations 107 82092 3 105.00 NI 107 68245 8 71.00 mm[Hg] - Sitting 129.00 mm[Hg] - Sitting 97.20 Ear 96.00/ min 129 89794 3 48.00 mm[Hg] - Sitting 108.00 mm[Hg] - Sitting 98.00 NI 99.80 Ear 94.00 % 16.00/min 129 39709 9 48.00 mm[Hg] - Sitting 108.00 mm[Hg] - Sitting 97.90 Ear 94.00 % 69.00/ min 130 63510 8 61667 130 74872 8 62.00 mm[Hg] - Sitting 126.00 mm[Hg] - Sitting 98.90 Oral 95.00 % 88.00/ min 130 92230 6 99.00 NI 130 91000 6 62.00 mm[Hg] - Lying Down 126.00 mm[Hg] - Lying Down 98.90 Ear 88.00/ min 16.00/min 130 99292 6 70.00 mm[Hg] - Sitting 124.00 mm[Hg] - Sitting 97.40 Oral 91.00 % 88.00/ min 201 33992 7 70.00 mm[Hg] - Sitting 126.00 mm[Hg] - Sitting 97.90 Ear 80.00/ min 18.00/min 201 48423 0 69.00 mm[Hg] - Sitting 125.00 mm[Hg] - Sitting 96.20 Oral 94.00 % 94.00/ min 201 27323 9 201 65966 6 69.00 mm[Hg] - Sitting 125.00 mm[Hg] - Sitting 96.20 Ear 94.00/ min 18.00/min 201 29320 3 70.00 mm[Hg] - Sitting 126.00 mm[Hg] - Sitting 97.90 X-Other 97.00 % 80.00/ min 202 54697 8 70.00 mm[Hg] - Sitting 126.00 mm[Hg] - Sitting 97.90 Ear 80.00/ min 18.00/min 202 90039 0 62.00 mm[Hg] - Sitting 147.00 mm[Hg] - Sitting 96.20 Ear 93.00 % 73.00/ min 202 09827 5 62.00 mm[Hg] - Sitting 147.00 mm[Hg] - Sitting 96.20 Ear 73.00/ min 16.00/min 202 45615 5 62.00 mm[Hg] - Sitting 119.00 mm[Hg] - Sitting 97.80 Oral 93.00 % 81.00/ min 203 89920 6 62.00 mm[Hg] - Sitting 119.00 mm[Hg] - Sitting 97.80 Oral 81.00/ min 18.00/min 203 42201 4 67.00 mm[Hg] - Sitting 112.00 mm[Hg] - Sitting 97.90 Ear 97.00 % 67.00/ min 203 06554 3 68.00 mm[Hg] - Sitting 121.00 mm[Hg] - Sitting 97.40 Ear 96.00 % 86.00/ min 204 58234 3 69.00 mm[Hg] - Sitting 116.00 mm[Hg] - Sitting 97.10 Ear 92.00 % 84.00/ min 205 64695 8 71.00 mm[Hg] - Sitting 130.00 mm[Hg] - Sitting 96.90 Ear 65.00/ min 205 28215 4 95.00 NI Immunizations Vaccine Date Status COVID-19 12/16/2020 Completed COVID-19 01/06/2021 Completed COVID-19 10/02/2021 Completed COVID-19 04/02/2022 Completed COVID-19 07/30/2022 Completed Influenza 08/20/2021 Completed Influenza 08/09/2022 Completed Influenza 08/04/2023 Completed (PCV13)Pneumococcal 02/05/2016 Completed (PPSV23)Pneumococcal 03/24/2022 Resident Re fused (PCV20)Pneumococcal 07/07/2023 Family Refus ed
--- OUTSIDE RECORDS SUMMARY | 2023-12-11 11:48 | External Medical Summary | Continuity Of Care Document ---
Author Name Unknown Address [address] [place] [address] Organization [facility]) Care Team Providers Care Air Conditioning Service Technician Name Role Phone Saida Moon Primary Care Provider [phone] Problems Code Description Start Date End Date [...] Active I25.10 Atherosclerotic hear t disease of [place] coronary artery without angina pectoris 03/11/2022 Active [...] Temperature SpO2 Blood Sugar Pulse Respirations 023 65912 3 107.00 NI 107 11975 3 105.00 NI 107 11050 8 71.00 mm[Hg] - Sitting 129.00 mm[Hg] - Sitting 97.20 Ear 96.00/ min Immunizations Vaccine Date Status COVID-19 12/16/2020 Completed COVID-19 01/06/2021 Completed COVID-19 10/02/2021 Completed COVID-19 04/02/2022 Completed COVID-19 07/30/2022 Completed Influenza 08/20/2021 Completed Influenza 08/09/2022 Completed Influenza 08/04/2023 Completed (PCV13)Pneumococcal 02/05/2016 Completed (PPSV23)Pneumococcal 03/24/2022 Resident Re fused (PCV20)Pneumococcal 07/07/2023 Family Refus ed
--- OUTSIDE RECORDS SUMMARY | 2023-12-11 11:48 | External Medical Summary | Continuity Of Care Document ---
Author Name Unknown Address [address] [place] [address] Organization [facility] ( ) Care Team Providers Care Barrel Repairer Name Role Phone Saida Moon Primary Care Provider [phone] Problems Code Description Start Date End Date [...] Active I25.10 Atherosclerotic hear t disease of [place] coronary artery without angina pectoris 03/11/2022 Active [...] Temperature SpO2 Blood Sugar Pulse Respirations 107 04244 3 105.00 NI 107 71249 8 71.00 mm[Hg] - Sitting 129.00 mm[Hg] - Sitting 97.20 Ear 96.00/ min 129 18794 3 48.00 mm[Hg] - Sitting 108.00 mm[Hg] - Sitting 98.00 NI 99.80 Ear 94.00 % 16.00/min 129 23978 9 48.00 mm[Hg] - Sitting 108.00 mm[Hg] - Sitting 97.90 Ear 94.00 % 69.00/ min 130 62832 8 47122 130 28848 8 62.00 mm[Hg] - Sitting 126.00 mm[Hg] - Sitting 98.90 Oral 95.00 % 88.00/ min 130 41146 6 99.00 NI 130 59962 6 62.00 mm[Hg] - Lying Down 126.00 mm[Hg] - Lying Down 98.90 Ear 88.00/ min 16.00/min 130 14531 6 70.00 mm[Hg] - Sitting 124.00 mm[Hg] - Sitting 97.40 Oral 91.00 % 88.00/ min 201 04206 7 70.00 mm[Hg] - Sitting 126.00 mm[Hg] - Sitting 97.90 Ear 80.00/ min 18.00/min 201 45654 0 69.00 mm[Hg] - Sitting 125.00 mm[Hg] - Sitting 96.20 Oral 94.00 % 94.00/ min 201 42208 9 201 81521 6 69.00 mm[Hg] - Sitting 125.00 mm[Hg] - Sitting 96.20 Ear 94.00/ min 18.00/min 201 57134 3 70.00 mm[Hg] - Sitting 126.00 mm[Hg] - Sitting 97.90 X-Other 97.00 % 80.00/ min 202 01876 8 70.00 mm[Hg] - Sitting 126.00 mm[Hg] - Sitting 97.90 Ear 80.00/ min 18.00/min 202 00016 0 62.00 mm[Hg] - Sitting 147.00 mm[Hg] - Sitting 96.20 Ear 93.00 % 73.00/ min 202 03418 5 62.00 mm[Hg] - Sitting 147.00 mm[Hg] - Sitting 96.20 Ear 73.00/ min 16.00/min 202 94326 5 62.00 mm[Hg] - Sitting 119.00 mm[Hg] - Sitting 97.80 Oral 93.00 % 81.00/ min 203 99431 6 62.00 mm[Hg] - Sitting 119.00 mm[Hg] - Sitting 97.80 Oral 81.00/ min 18.00/min 203 14521 4 67.00 mm[Hg] - Sitting 112.00 mm[Hg] - Sitting 97.90 Ear 97.00 % 67.00/ min 203 52064 3 68.00 mm[Hg] - Sitting 121.00 mm[Hg] - Sitting 97.40 Ear 96.00 % 86.00/ min Immunizations Vaccine Date Status COVID-19 12/16/2020 Completed COVID-19 01/06/2021 Completed COVID-19 10/02/2021 Completed COVID-19 04/02/2022 Completed COVID-19 07/30/2022 Completed Influenza 08/20/2021 Completed Influenza 08/09/2022 Completed Influenza 08/04/2023 Completed (PCV13)Pneumococcal 02/05/2016 Completed (PPSV23)Pneumococcal 03/24/2022 Resident Re fused (PCV20)Pneumococcal 07/07/2023 Family Refus ed
[2023-12-11] MEDS: HYDROmorphone INJ 0.5 MG/0.5 ML SYR IV SCH ×2 (16:34→18:26)
--- NOTE | 2023-12-11 17:27 | Hospitalist Progress Note ---
Date of Service December 11, 2023 Assessment & Plan (1) Sepsis due to urinary tract infection: (2) Alzheimer's dementia: (3) Goals of care, counseling/discussion: (4) HFrEF (heart failure with reduced ejection fraction): (5) Hx of CABG: (6) Type 2 diabetes mellitus: (7) Paroxysmal atrial fibrillation: (8) Dyslipidemia: Plan per admitting service notes with addendum: Ms. Mitchell is an 88 year old female with a complex medical history that includes CAD, H/O CABG x3 in 1984 with a re-do CABG in , Alzheimer's Dementia, CKD IV, H/O TIA/CVA, DM2, Atrial Fibrillation, PAD s/p iliac stent, and HLD. She had a ground-level fall at [facility] and was found at 0230 on the floor; she was last well seen at midnight. She was recently treated for UTI. She is on Hospice at [facility] and currently receiving comfort measures only. She had increased agitation and the staff at [facility] were unable to get her comfortable; family requested a hospital transfer for evaluation. Pelvis and femur x-ray's negative for acute fracture. She received 2LNSB and was started on IV Rocephin. Most recent ECHO from 09/07/23: EF reduced 25-30% with severe kinesis, mild concentric LVH, severe , moderate MR and moderate pHTN. In the ED, leukocytosis 18.92, elevated lactate 3.8. Lengthy conversation held with patient's daughter, Lashawn, . At baseline, pt knows who she is, but when she gets an infection she tends to get quite agitated with the delirium on advanced dementia presentation. She has been regressing with her Dementia age gallegos and has had frequent falls with increasing auditory and visual hallucinations and recognizing/calling out for people that are ''. Discussed options regarding her current care plan. Discussed that we can continue a workup for urosepsis along with treatment with IV antibiotics. Pt daughter indicated that her overall baseline quality of life is quite poor and would like to purely focused on comfort measures. Does not wish to continue any aggressive treatment including blood draws, vital signs, diagnostic testing, or any life-sustaining measures. Confirmed DNR/DNI. As patient was established with [facility] hospice asked case management to call [facility] hospice to see if they would do a bedside evaluation for continuation of care under GIP (general inpatient) status. I met with patient's [facility] hospice nurse Perla at bedside and went over current treatment plan and presentation. [facility] agreed for general inpatient hospice admission. From a symptom management perspective patient with increased agitation. Administered Zyprexa ODT with some improvement of her agitation. It did wear off after some time and patient was given IV Dilaudid low-dose. Patient remains tachycardic in the 120s and hypoxic in the mid 80s. With patient's worsening CHF, progressing dementia, frequent UTIs and falls this patient has poor quality of life as outlined by her family. Focus to be deemed quality versus quantity. Explained that with end-stage dementia with delirium the goal is to administer pain medication with a goal to keep the patient is awake and alert as possible knowing that sedation may occur. Life expectancy is days to a week or so. Should patient stabilize, can entertain a return to [facility] under comfort care measures. Sepsis due to Urinary Tract infection: Comfort Care: Acute Meets sepsis criteria with leukocytosis (18.92), elevated lactate (3.8), tachycardia (122) 2LNSB given in ED; will hold any additional fluids due to HFrEF IV Rocephin given in ED; discontinue IV antibiotics as outlined by family Transition to comfort measures only General inpatient hospice; [facility] to follow daily 12/11 Patient comfortable overall Continue present regimen of Dilaudid every 6 hours, Zyprexa daily Alzheimers Dementia with behavioral disturbances: Chronic FAST score all of 6 and 7 up to 7D Was on Hospice and Comfort Measures Transition to comfort measures only here in the hospital General inpatient hospice; [facility] to follow daily Administered Zyprexa ODT 5 mg once; will schedule BID as it helped with agitation Ordered Dilaudid 0.25 IV Q6 PRN; will reassess, low threshold to initiate low dose Dilaudid gtt @ 0.1mg/hour Avoid Morphine due to possible opioid toxicity related to her kidney failure; despite her creatinine being normal today Discontinue all lab draws, vital signs, scheduled medications, and all other life sustaining treatments HFrEF: Chronic Most recent ECHO 09/07/23: EF 25-30%, severe hypokinesis, mild concentric LVH, severe , moderate MR and moderate PHTN Transition to comfort measures only General inpatient hospice; [facility] to follow daily H/O CABG: Chronic CABG x3 1984 with re-do 1999 Disposition: PCP: Tina Bella Code Status: DNR/DNI VTE Prophylaxis: Teds + SCDs for now Admission and Anticipated Discharge Date Admission Date: December 10, 2023 Subjective Follow-up for comfort measures status only, etc. Seen resting in bed, sleeping Some left arm shivering/tremors noted Not in distress, no signs of pain Evaluated with LORRAINE Martinez at the bedside Patient mostly sleeping, no issues noted Review of Systems Review of Systems: all noted and negative except for above Physical Exam Physical Exam: General-sleeping, breathing with no effort or accessory muscle use Eyes- anicteric Neck- no JVD Lungs- clear breath sounds bilaterally Heart- normal rate, regular rhythm; no murmurs Abdomen- normal bowel sounds, nondistended, soft, no tenderness Extremities- no pretibial edema, no calf tenderness Neuro-sleeping Skin- warm & dry Results & Data Results & Data Vital Signs (Past 12 Hours) Vital Signs O2 Del Method O2 Flow Rate 12/11/23 08:00 Nasal Cannula 3
[2023-12-11] MEDS: OLANZapine ZYDIS 5 MG ORALLY DIS. TAB PO SCH (21:26)
[2023-12-12] MEDS: ATROPINE SULFATE 1% OP SOLN 5 ML BTL SL PRN (04:59)
--- NOTE | 2023-12-12 15:27 | Discharge Summary ---
Discharge Summary Date of Service December 12, 2023 Notes For Next Care Provider Medication Changes From Visit patient Admission HPI Per Admitting Provider Ms. Mitchell is an 88 year old female with a complex medical history that includes CAD, H/O CABG x3 in 1984 with a re-do CABG in , Alzheimer's Dementia, CKD IV, H/O TIA/CVA, DM2, Atrial Fibrillation, PAD s/p iliac stent, and HLD. She had a ground-level fall at [facility] and was found at 0230 on the floor; she was last well seen at midnight. She was recently treated for UTI. She is on Hospice at [facility] and currently receiving comfort measures only. She had increased agitation and the staff at [facility] were unable to get her comfortable; family requested a hospital transfer for evaluation. Pelvis and femur x-ray's negative for acute fracture. She received 2LNSB and was started on IV Rocephin. Most recent ECHO from 09/07/23: EF reduced 25-30% with severe kinesis, mild concentric LVH, severe , moderate MR and moderate pHTN. In the ED, leukocytosis 18.92, elevated lactate 3.8. Lengthy conversation held with patient's daughter, Lashawn, . At baseline, pt knows who she is, but when she gets an infection she tends to get quite agitated with the delirium on advanced dementia presentation. She has been regressing with her Dementia age gallegos and has had frequent falls with increasing auditory and visual hallucinations and recognizing/calling out for people that are ''. Discussed options regarding her current care plan. Discussed that we can continue a workup for urosepsis along with treatment with IV antibiotics. Panel indicated that her overall baseline quality of life is quite poor and would like to purely focused on comfort measures. Does not wish to continue any aggressive treatment including blood draws, vital signs, diagnostic testing, or any life-sustaining measures. Confirmed DNR/DNI. As patient was established with [facility] hospice asked case management to call [facility] hospice to see if they would do a bedside evaluation for continuation of care under GIP (general inpatient) status. I met with patient's [facility] hospice nurse Perla at bedside and went over current treatment plan and presentation. [facility] agreed for general inpatient hospice admission. From a symptom management perspective patient with increased agitation. Administered Zyprexa ODT with some improvement of her agitation. It did wear off after some time and patient was given IV Dilaudid low-dose. Patient remains tachycardic in the 120s and hypoxic in the mid 80s. With patient's worsening CHF, progressing dementia, frequent UTIs and falls this patient has poor quality of life as outlined by her family. Focus to be deemed quality versus quantity. Explained that with end-stage dementia with delirium the goal is to administer pain medication with a goal to keep the patient is awake and alert as possible knowing that sedation may occur. Will admit to [facility] with comfort measures only under [facility] admission. Admission Exam Per Admitting Provider Neuro: AAOx1, PERRLA, no aphagia HEENT: head normocephalic, dry mucus membranes CV: S1/S2, (+) M (-) G/R, (-) edema, cap refill < 3 seconds Resp: Lungs decreased in all bradshaw. On 4LNC GI: Abdomen S/NT/ND, Ax4 bowel sounds, (-) CVA tenderness Musculoskeletal: unable to assess due to agitation. able to move all extremities Skin: (-) rashes , (-) erythema. Psych: agitated mood Principal Dx & Hospital Course #1 = Principal Diagnosis (1) Sepsis due to urinary tract infection: (2) Alzheimer's dementia: (3) Goals of care, counseling/discussion: (4) HFrEF (heart failure with reduced ejection fraction): (5) Hx of CABG: (6) Type 2 diabetes mellitus: (7) Paroxysmal atrial fibrillation: (8) Dyslipidemia: Plan per admitting service notes with addendum: Ms. Mitchell is an 88 year old female with a complex medical history that includes CAD, H/O CABG x3 in 1984 with a re-do CABG in , Alzheimer's Dementia, CKD IV, H/O TIA/CVA, DM2, Atrial Fibrillation, PAD s/p iliac stent, and HLD. She had a ground-level fall at [facility] and was found at 0230 on the floor; she was last well seen at midnight. She was recently treated for UTI. She is on Hospice at [facility] and currently receiving comfort measures only. She had increased agitation and the staff at [facility] were unable to get her comfortable; family requested a hospital transfer for evaluation. Pelvis and femur x-ray's negative for acute fracture. She received 2LNSB and was started on IV Rocephin. Most recent ECHO from 09/07/23: EF reduced 25-30% with severe kinesis, mild concentric LVH, severe , moderate MR and moderate pHTN. In the ED, leukocytosis 18.92, elevated lactate 3.8. Lengthy conversation held with patient's daughter, Lashawn, . At baseline, pt knows who she is, but when she gets an infection she tends to get quite agitated with the delirium on advanced dementia presentation. She has been regressing with her Dementia age gallegos and has had frequent falls with increasing auditory and visual h allucinations and recognizing/calling out for people that are ''. Discussed options regarding her current care plan. Discussed that we can continue a workup for urosepsis along with treatment with IV antibiotics. Pt daughter indicated that her overall baseline quality of life is quite poor and would like to purely focused on comfort measures. Does not wish to continue any aggressive treatment including blood draws, vital signs, diagnostic testing, or any life- sustaining measures. Confirmed DNR/DNI. As patient was established with [facility] hospice asked case management to call [facility] hospice to see if they would do a bedside evaluation for continuation of care under GIP (general inpatient) status. I met with patient's [facility] hospice nurse Perla at bedside and went over current treatment plan and presentation. [facility] agreed for general inpatient hospice admission. From a symptom management perspective patient with increased agitation. Administered Zyprexa ODT with some improvement of her agitation. It did wear off after some time and patient was given IV Dilaudid low-dose. Patient remains tachycardic in the 120s and hypoxic in the mid 80s. With patient's worsening CHF, progressing dementia, frequent UTIs and falls this patient has poor quality of life as outlined by her family. Focus to be deemed quality versus quantity. Explained that with end-stage dementia with delirium the goal is to administer pain medication with a goal to keep the patient is awake and alert as possible knowing that sedation may occur. Life expectancy is days to a week or so. Should patient stabilize, can entertain a return to [facility] under comfort care measures. Sepsis due to Urinary Tract infection: Comfort Care: Acute Meets sepsis criteria with leukocytosis (18.92), elevated lactate (3.8), tachycardia (122) 2LNSB given in ED; will hold any additional fluids due to HFrEF IV Rocephin given in ED; discontinue IV antibiotics as outlined by family Transition to comfort measures only General inpatient hospice; [facility] to follow daily 12/11 Patient comfortable overall Continue present regimen of Dilaudid every 6 hours, Zyprexa daily 12/12 patient Alzheimers Dementia with behavioral disturbances: Chronic FAST score all of 6 and 7 up to 7D Was on Hospice and Comfort Measures Transition to comfort measures only here in the hospital General inpatient hospice; [facility] to follow daily Administered Zyprexa ODT 5 mg once; will schedule BID as it helped with agitation Ordered Dilaudid 0.25 IV Q6 PRN; will reassess, low threshold to initiate low dose Dilaudid gtt @ 0.1mg/hour Avoid Morphine due to possible opioid toxicity related to her kidney failure; despite her creatinine being normal today Discontinue all lab draws, vital signs, scheduled medications, and all other life sustaining treatments HFrEF: Chronic Most recent ECHO 09/07/23: EF 25-30%, severe hypokinesis, mild concentric LVH, severe , moderate MR and moderate PHTN Transition to comfort measures only General inpatient hospice; [facility] to follow daily H/O CABG: Chronic CABG x3 1984 with re-do 1999 Disposition: PCP: Tina Bella Code Status: DNR/DNI VTE Prophylaxis: Teds + SCDs for now Discharge Exam patient Updated Medication List Medication Instructions Recorded Confirmed Type levothyroxine 50 mcg tablet 50 mcg PO DAILYBB 01/16/22 12/10/23 History sennosides 8.6 mg-docusate sodium 1 tab-cap PO AMPM 03/10/22 12/10/23 History 50 mg capsule (Senna Plus) acetaminophen 650 mg rectal 650 mg DE Q4H PRN Fever Or Pain 04/30/22 12/10/23 History suppository magnesium hydroxide 400 mg/5 mL 2,400 mg PO .DAILY UD PRN 04/30/22 12/10/23 History oral suspension (Milk of Magnesia) Constipation acetaminophen 325 mg tablet 650 mg PO Q4 PRN Fever Or Pain 06/12/23 12/10/23 History (Tylenol) diclofenac sodium 1 % topical gel 2 g topical BID 8 grams 06/12/23 12/10/23 History food supplemt, lactose-reduced 1 ea PO BID 06/12/23 12/10/23 History melatonin 10 mg tablet 10 mg PO HS 06/12/23 12/10/23 History pantoprazole 20 mg tablet,delayed 20 mg PO AMHS 06/12/23 12/10/23 History release Theracalazinc Ointment See Rx Instructions .Route .COMPLEX 09/06/23 12/10/23 History bisacodyl 10 mg rectal suppository 10 mg DE DAILY PRN Constipation 09/06/23 12/10/23 History (Dulcolax (bisacodyl)) dextromethorphan-guaifenesin 10 10 ml PO Q4H PRN Cough 09/06/23 12/10/23 History mg-100 mg/5 mL oral syrup (Siltussin-DM) escitalopram oxalate 5 mg tablet 5 mg PO DAILY 09/06/23 12/10/23 History gabapentin 100 mg capsule 100 mg PO DAILY 09/06/23 12/10/23 History ipratropium 0.5 mg-albuterol 3 mg 3 ml inhalation Q4H PRN cough/SOB 09/06/23 12/10/23 History (2.5 mg base)/3 mL nebulization soln ondansetron HCl 4 mg tablet 4 mg PO Q6H PRN Nausea And Vomiting 09/06/23 12/10/23 History sodium phosphates 19 gram-7 118 ml DE DAILY PRN Constipation 09/06/23 12/10/23 History gram/118 mL enema (Fleet Enema) empagliflozin 10 mg tablet 10 mg PO DAILY #30 tabs 09/15/23 12/10/23 Rx (Jardiance) furosemide 20 mg tablet 20 mg PO QAM #30 tabs 09/15/23 12/10/23 Rx spironolactone 25 mg tablet 12.5 mg (1/2 x 25 mg) PO QAM #30 09/15/23 12/10/23 Rx tabs Hospital Stay Data Consultations 12/10/23 09:55 ED Decision to Admit Stat Total Time Total Time Spent Total Time Spent (In Minutes): < 30 minutes
== END 2023-12-12 09:55 | disposition expired | DRG 872 ==
LOC: ED 05:49 → SUATTDRO 11:28 → EDINP 11:28 → 3W 15:18